=== PATIENT | male | born 1960 | race Caucasian/White ===

== ENCOUNTER 2017-10-17 15:43 | Emergency (ER) | payer OTHER ==
[~2017-10-17 15:43] MED LIST: ASPI325T PO; FURO10S PO; GABA600T PO; GEMF600T PO; LISI-360 PO; PRAV40TA2 PO; RANI150 GT
[2017-10-17 15:53] VITALS: BP 157/96; PULSE 97; RESP 18; O2SAT 99
[2017-10-17] MEDS ORDERED: SODIUM CHLORIDE 0.9% FLUSH 10 ML FLUSH IVF PRN (16:00)
--- NOTE | 2017-10-17 16:11 | PD ---
HPI Chief Complaint: Medical Clearance Time Seen by Provider: 15:54 Travel History International Travel<30 days: No Contact w/Intl Traveler<30days: No Traveled to known affect area: No History of Present Illness HPI Patient is a 56-year-old male presenting to the emergency department via EMS for evaluation of what appears to be a tremulous episode that lasted a few seconds. Patient's called 911 because she thought he was having another stroke. Patient has a history of a CVA with residual right-sided weakness. Patient reports a cough but denies any other complaints at this time. H&P is limited due to patient being aphasic which is also chronic. Patient shakes his head yes or no when answering questions. He denied any abdominal pain, chest pain, headache. Symptom onset was sudden, symptoms resolved within a few seconds. is attempted to get a ride to the hospital. 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 Reported Meds & Prescriptions Reported Meds & Active Scripts Active Zantac 150 Mg Tab (Ranitidine HCl) 150 Mg Tab 150 Mg GT Q12 Gemfibrozil 600 Mg Tab 600 Mg PO BID Pravastatin Sodium 40 Mg Tab 40 Mg PO DAILY Lisinopril 10 mg (Lisinopril) 10 Mg Tab 10 Mg PO BID Reported Furosemide 10 Mg/Ml Gilma 20 Mg PO Gabapentin 600 Mg Tab 600 Mg PO TID PRN Aspirin 325 Mg Tab (Aspirin) 325 Mg Tab 325 Mg PO DAILY Review of Systems ROS Limitations: Speech Impaired Except as stated in HPI: all other systems reviewed are Neg HENT: No: Headaches Cardiovascular: No: Chest Pain or Discomfort Respiratory: Positive: Cough, No: Shortness of Breath Gastrointestinal: No: Nausea, Abdominal Pain Musculoskeletal: No: Myalgias Physical Exam Narrative GENERAL: Well-developed, well-nourished, disheveled male. Presenting in no acute distress. SKIN: Warm and dry. HEAD: Atraumatic. Normocephalic. EYES: Pupils equal and round. No scleral icterus. No injection or drainage. ENT: No nasal bleeding or discharge. Mucous membranes pink and moist. NECK: Trachea midline. No JVD. CARDIOVASCULAR: Regular rate and rhythm. RESPIRATORY: No accessory muscle use. Clear to auscultation. Breath sounds equal bilaterally. GASTROINTESTINAL: Abdomen soft, non-tender, nondistended. Hepatic and splenic margins not palpable. MUSCULOSKELETAL: Extremities without clubbing, cyanosis, or edema. No obvious deformities. NEUROLOGICAL: Awake and alert. No obvious cranial nerve deficits. Motor grossly within normal limits. Five out of 5 muscle strength in the arms and legs. Aphasic PSYCHIATRIC: Appropriate mood and affect; insight and judgment normal. Data Data Last Documented VS Vital Signs Date Time Temp Pulse Resp B/P (MAP) Pulse Ox O2 Delivery O2 Flow Rate FiO2 10/17/17 16:13 98.9 10/17/17 16:12 99 10/17/17 15:53 97 18 Room Air Orders Orders Electrocardiogram (10/17/17 15:54) Prothrombin Time / Inr (Pt) (10/17/17 15:54) Act Partial Throm Time (Ptt) (10/17/17 15:54) Complete Blood Count With Diff (10/17/17 15:54) Comprehensive Metabolic Panel (10/17/17 15:54) Creatine Kinase (Cpk) (10/17/17 15:54) Troponin I (10/17/17 15:54) Urinalysis - C+S If Indicated (10/17/17 15:54) Ct Brain W/O Iv Contrast(Rout) (10/17/17 15:54) Chest, Single Ap (10/17/17 15:54) Ecg Monitoring (10/17/17 15:54) Iv Access Insert/Monitor (10/17/17 15:54) Oximetry (10/17/17 15:54) Sodium Chloride 0.9% Flush (Ns Flush) (10/17/17 16:00) Sodium Chlorid 0.9% 500 Ml Inj (Ns 500 M (10/17/17 18:30) Urine Culture (10/17/17 17:38) Ceftriaxone Inj (Rocephin Inj) (10/17/17 20:00) Labs Laboratory Tests Test 10/17/17 16:07 10/17/17 17:38 White Blood Count 16.0 TH/MM3 Red Blood Count 4.78 MIL/MM3 Hemoglobin 12.1 GM/DL Hematocrit 38.7 % Mean Corpuscular Volume 80.9 FL Mean Corpuscular Hemoglobin 25.3 PG Mean Corpuscular Hemoglobin Concent 31.3 % Red Cell Distribution Width 18.3 % Platelet Count 506 TH/MM3 Mean Platelet Volume 6.6 FL Neutrophils (%) (Auto) 83.4 % Lymphocytes (%) (Auto) 9.5 % Monocytes (%) (Auto) 6.6 % Eosinophils (%) (Auto) 0.2 % Basophils (%) (Auto) 0.3 % Neutrophils # (Auto) 13.3 TH/MM3 Lymphocytes # (Auto) 1.5 TH/MM3 Monocytes # (Auto) 1.1 TH/MM3 Eosinophils # (Auto) 0.0 TH/MM3 Basophils # (Auto) 0.0 TH/MM3 CBC Comment DIFF FINAL Differential Comment Prothrombin Time 9.9 SEC Prothromb Time International Ratio 1.0 RATIO Activated Partial Thromboplast Time 27.7 SEC Blood Urea Nitrogen 5 MG/DL Creatinine 0.68 MG/DL Random Glucose 93 MG/DL Total Protein 6.8 GM/DL Albumin 3.1 GM/DL Calcium Level 8.3 MG/DL Alkaline Phosphatase 100 U/L Aspartate Amino Transf (AST/SGOT) 9 U/L Alanine Aminotransferase (ALT/SGPT) 9 U/L Total Bilirubin 0.2 MG/DL Sodium Level 139 MEQ/L Potassium Level 3.7 MEQ/L Chloride Level 106 MEQ/L Carbon Dioxide Level 25.5 MEQ/L Anion Gap 8 MEQ/L Estimat Glomerular Filtration Rate 122 ML/MIN Total Creatine Kinase 47 U/L Troponin I LESS THAN 0.02 NG/ML Urine Color YELLOW Urine Turbidity HAZY Urine pH 7.0 Urine Specific [place] 1.022 Urine Protein TRACE mg/dL Urine Glucose (UA) NEG mg/dL Urine Ketones NEG mg/dL Urine Occult Blood NEG Urine Nitrite NEG Urine Bilirubin NEG Urine Urobilinogen 2.0 MG/DL Urine Leukocyte Esterase MOD Urine RBC 8 /hpf Urine WBC 12 /hpf Urine Squamous Epithelial Cells 1 /hpf Urine Amorphous Sediment RARE Urine Bacteria FEW /hpf Urine Mucus MANY /lpf Microscopic Urinalysis Comment CATH-CULTURE IND MDM Medical Decision Making Medical Screen Exam Complete: Yes Emergency Medical Condition: Yes Medical Record Reviewed: Yes Interpretation(s) Vital Signs Date Time Temp Pulse Resp B/P (MAP) Pulse Ox O2 Delivery O2 Flow Rate FiO2 10/17/17 15:53 97 18 157/96 (116) 99 Room Air Differential Diagnosis TIA versus metabolic abnormality versus arrhythmia versus other Narrative Course Patient is a 56-year-old male that presented to the emergency room for evaluation of abnormal movements. who was not present initially for H&P, presented and stated that he was shaking his right arm making a growling noise for a few seconds. This concerned her and then she called 911. Labs and imaging ordered and pending. IV access established, patient placed on telemetry monitoring continuous pulse oximetry. CBC with a white count of 16.0 with left shift Chemistry with no acute findings Cardiac enzymes are negative 1 set Urinalysis is consistent with urinary tract infection, reflex culture pending. Rocephin was ordered. Chest x-ray shows moderate compensated cardiomegaly, otherwise negative. CT scan of the brain shows stable infarcts involving the right occipital lobe and left parietal lobe. Stable cerebral atrophy. No acute infarct, acute hemorrhage, mass-effect or extra-axial fluid collections. Plan of care was discussed with Dr. Sun. Patient will be discharged home on antibiotics for the urinary tract infection. Again patient had no new focal deficits on exam. He had residual right upper extremity weakness and aphasic speech from prior CVA. Patient is to follow-up with his primary doctor or return to emergency department for any new worsening symptoms. Patient and verbalized understanding of these instructions. Patient stable for discharge. Diagnosis Primary Impression: UTI (urinary tract infection) Qualified Codes: N39.0 - Urinary tract infection, site not specified; R31.9 - Hematuria, unspecified Referrals: Primary Care Physician 2 days Patient Instructions: General Instructions, Urinary Tract Infection in Men (DC) Additional Instructions: Complete full course of antibiotics as prescribed Increase fluid intake Follow-up with your primary doctor Return to emergency department for any new worsening symptoms Continue home medication as previously prescribed Med/Other Pt SpecificInfo: Prescription(s) given Scripts Cephalexin (Keflex) 500 Mg Cap 500 MG PO Q12H for Infection for 7 Days, #14 CAP 0 Refills Prov: Miladis Araya 10/17/17 Disposition: 01 DISCHARGE HOME Condition: Stable Miladis Araya Oct 17, 2017 16:11
[2017-10-17 16:12] VITALS: O2SAT 99
[2017-10-17 16:13] VITALS: TEMP 98.9
--- NOTE | 2017-10-17 16:34 | RADRPT ---
EXAM DATE/TIME: 10/17/2017 16:04 [facility] COMPARISON: No previous studies available for comparison. INDICATIONS : Chest pain. MEDICAL HISTORY : Hypertension. Gastroesophageal reflux disease. SURGICAL HISTORY : PEG tube placement. ENCOUNTER: Initial ACUITY: 1 day PAIN SCORE: 10 LOCATION: Bilateral chest FINDINGS: A single view of the chest demonstrates the lungs to be symmetrically aerated without evidence of mas s, infiltrate or effusion. Moderate compensated cardiomegaly. Osseous structures are intact. CONCLUSION: Moderate compensated cardiomegaly otherwise negative Glenroy Lemon MD FACR on October 17, 2017 at 16:31 Board Certified Radiologist. This report was verified electronically.
--- NOTE | 2017-10-17 16:52 | RADRPT ---
EXAM DATE/TIME: 10/17/2017 16:16 [facility] COMPARISON: CT BRAIN W/O CONTRAST, December 17, 2015, 17:38. INDICATIONS : Patient had a shaking episode today. RADIATION DOSE: 39.15 CTDIvol (mGy) MEDICAL HISTORY : Cerebrovascular disease. Hypertension. SURGICAL HISTORY : None. ENCOUNTER: Initial ACUITY: 1 day PAIN SCALE: 0/10 LOCATION: cranial TECHNIQUE: Multiple contiguous axial images were obtained of the head. Using automated exposure control and adj ustment of the mA and/or kV according to patient size, radiation dose was kept as low as reasonably a chievable to obtain optimal diagnostic quality images. DICOM format image data is available electro nically for review and comparison. FINDINGS: CEREBRUM: Stable cerebral atrophy is noted. Old infarcts involving the right occipital lobe and left parietal l obe are noted. No evidence of midline shift, mass lesion, hemorrhage or acute infarction. No extra-a xial fluid collections are seen. POSTERIOR FOSSA: The cerebellum and brainstem are intact. The 4th ventricle is midline. The cerebellopontine angle i s unremarkable. EXTRACRANIAL: The visualized portion of the orbits is intact. SKULL: The calvaria is intact. No evidence of skull fracture. CONCLUSION: 1. Stable infarcts involving the right occipital lobe and left parietal lobe. 2. Stable cerebral atrophy. 3. No acute infarct, acute hemorrhage, mass effect or extra-axial fluid collections. Deepak Sands MD on October 17, 2017 at 16:48 Board Certified Radiologist. This report was verified electronically.
[2017-10-17 16:54] LABS: AUTOMATED NEUTROPHIL # 13.3 TH/MM3 (1.8-7.7); BASOPHIL % 0.3 % (0.0-2.0); EOSINOPHIL % 0.2 % (0.0-4.0); HEMATOCRIT 38.7 % (39.0-51.0); HEMOGLOBIN 12.1 GM/DL (13.0-17.0); LYMPH % 9.5 % (9.0-44.0); LYMPHOCYTE # 1.5 TH/MM3 (1.0-4.8); MEAN CELL VOLUME 80.9 FL (80.0-100.0); MEAN CORPUSCULAR HEMOGLOBIN 25.3 PG (27.0-34.0); MEAN CORPUSCULAR HGB CONC 31.3 % (32.0-36.0); MEAN PLATELET VOLUME 6.6 FL (7.0-11.0); MONO % 6.6 % (0.0-8.0); MONOCYTE # 1.1 TH/MM3 (0-0.9); NEUT % 83.4 % (16.0-70.0); PLATELET COUNT 506 TH/MM3 (150-450); RED BLOOD COUNT 4.78 MIL/MM3 (4.50-5.90); RED CELL DISTRIBUTION WIDTH 18.3 % (11.6-17.2)
[2017-10-17 17:00] LABS: PROTHROMBIN TIME - PATIENT 9.9 SEC (9.8-11.6)
[2017-10-17 17:10] LABS: ALKALINE PHOSPHATASE 100 U/L (45-117); ALT (GPT) 9 U/L (12-78); TOTAL BILIRUBIN ADULT 0.2 MG/DL (0.2-1.0); TOTAL PROTEIN 6.8 GM/DL (6.4-8.2); TROPONIN I LESS THAN 0.02 NG/ML (0.02-0.05)
[2017-10-17 17:18] LABS: ALBUMIN 3.1 GM/DL (3.4-5.0); AST (GOT) 9 U/L (15-37); BICARBONATE 25.5 MEQ/L (21.0-32.0); BLOOD UREA NITROGEN 5 MG/DL (7-18); CALCIUM 8.3 MG/DL (8.5-10.1); CHLORIDE 106 MEQ/L (98-107); CREATININE 0.68 MG/DL (0.60-1.30); GLOMERULAR FILTRATION RATE 122 ML/MIN (>89); GLUCOSE,RANDOM 93 MG/DL (74-106); SODIUM (NA) 139 MEQ/L (136-145)
[2017-10-17] MEDS ORDERED: SODIUM CHLORID 0.9% 500 ML INJ 500 ML IV ONE (18:30)
[2017-10-17 19:44] LABS: AMORPHOUS SEDIMENT, URINE RARE; BACTERIA, URINE FEW /hpf; BILIRUBIN, URINE NEG (NEG); BLOOD, URINE NEG (NEG); GLUCOSE,URINE NEG (NEG); KETONE, URINE NEG (NEG); MUCUS URINE MANY /lpf (OCC); NITRITE,URINE NEG (NEG); SQUAMOUS EPITHELIAL CELL URINE 1 /hpf (0-5); URINE COLOR YELLOW (YELLW/STRAW); URINE LEUKOCYTE ESTERASE MOD (NEG)
[2017-10-17] MEDS ORDERED: cefTRIAXone INJ 2,000 MG in SODIUM CHLORIDE 0.9% INJ 100 ML IV ONE (20:00)
[2017-10-17] MEDS ORDERED: CEPH-460 PO (20:10)
--- NOTE | 2017-10-18 18:49 | EKG ---
Date Performed: 10/17/2017 Time Performed: 15:55:50 PTAGE: 56 years EKG: Sinus rhythm POSSIBLE INFERIOR MYOCARDIAL INFARCTION Since the previous tracing, no significant change noted NIURKA CALI ECG PREVIOUS TRACING : 12/17/15 @ 1720 DOCTOR: Davian Finley Interpretating Date/Time 10/18/2017 18:46:03
== END 2017-10-17 20:44 | disposition home or self-care (01) ==
LOC: NEPE 15:43
DX: N39.0 Urinary tract infection, site not specified (principal); I51.7 Cardiomegaly; I69.951 Hemiplegia and hemiparesis following unspecified cerebrovascular disease affecting right dominant side; I69.920 Aphasia following unspecified cerebrovascular disease; E78.00 Pure hypercholesterolemia, unspecified; I10 Essential (primary) hypertension; F17.200 Nicotine dependence, unspecified, uncomplicated; Z79.82 Long term (current) use of aspirin; Z79.899 Other long term (current) drug therapy
CPT/HCPCS: 70450; 71045; 80053; 81001; 82550; 84484; 85025; 85610; 85730; 87086; 93005; 96361; 96374; 99285; J0696; J7040

== ENCOUNTER 2017-12-11 17:26 | Observation (INO) | payer OTHER ==
[~2017-12-11] VITALS: Ht 170.2 cm; Wt 68.2 kg
[2017-12-11 00:10] VITALS: BP 159/74; PULSE 87; RESP 20; TEMP 99.5; O2SAT 96
[~2017-12-11 17:26] MED LIST changes: +CEPH-460 PO
[2017-12-11 17:29] VITALS: BP_SYST 113; BP_SYST 122; BP_DIAS 58; BP_DIAS 69; PULSE 98; RESP 16; TEMP 98.2; O2SAT 99
[2017-12-11] MEDS ORDERED: SODIUM CHLOR 0.9% 1000 ML INJ 1,000 ML IV ONE (17:34)
[2017-12-11 17:37] VITALS: BP 113/58; PULSE 98; RESP 16; TEMP 99; O2SAT 97
[2017-12-11] MEDS ORDERED: SODIUM CHLORIDE 0.9% FLUSH 10 ML FLUSH IVF PRN (17:45)
--- NOTE | 2017-12-11 17:59 | PD ---
HPI Chief Complaint: Syncope/Near-Syncope Time Seen by Provider: 17:34 Travel History International Travel<30 days: No Contact w/Intl Traveler<30days: No Traveled to known affect area: No History of Present Illness HPI Patient is a 57-year-old male with history of hypertension, CVA, alcoholism, hyperlipidemia, presents the emergency room for evaluation of syncopal episode. As per EMS, patient is heavily intoxicated, reports that he was walking around [address] with his girlfriend. Reports that while walking today, patient had a syncopal episode. Reports that his core temperature was 99.6 as he was wearing a long black overcoat while walking outside in 91 degree weather. Patient is alert and oriented, cannot provide full hpi at this time. He does tell me that nothing is hurting him. PFSH Past Medical History Hx Anticoagulant Therapy: Yes (ASPIRIN 81 MG) High Cholesterol: Yes Cerebrovascular Accident: Yes Endocrine: No Hypertension: Yes Immune Disorder: No Neurologic: Yes (Right hemiparesis, encephalopathy) Past Surgical History Abdominal Surgery: Yes (PEG TUBE ) Social History Alcohol Use: No Tobacco Use: Yes (2PPD) Substance Use: No Allergies-Medications (Allergen,Severity, Reaction): Coded Allergies: *MDRO Multi-Drug Resistant Organism (Verified Adverse Reaction, Unknown, ) MRSA Reported Meds & Prescriptions Reported Meds & Active Scripts Active Keflex (Cephalexin) 500 Mg Cap 500 Mg PO Q12H 7 Days Zantac 150 Mg Tab (Ranitidine HCl) 150 Mg Tab 150 Mg GT Q12 Gemfibrozil 600 Mg Tab 600 Mg PO BID Pravastatin Sodium 40 Mg Tab 40 Mg PO DAILY Lisinopril 10 mg (Lisinopril) 10 Mg Tab 10 Mg PO BID Reported Furosemide 10 Mg/Ml Gilma 20 Mg PO Gabapentin 600 Mg Tab 600 Mg PO TID PRN Aspirin 325 Mg Tab (Aspirin) 325 Mg Tab 325 Mg PO DAILY Review of Systems ROS Limitations: Altered Mental Status General / Constitutional: No: Fever Eyes: No: Visual changes HENT: No: Headaches Cardiovascular: No: Chest Pain or Discomfort Respiratory: No: Shortness of Breath Gastrointestinal: No: Abdominal Pain Genitourinary: No: Dysuria Musculoskeletal: No: Pain Skin: No Rash Neurologic: No: Weakness Psychiatric: No: Depression Endocrine: No: Polydipsia Hematologic/Lymphatic: No: Easy Bruising Physical Exam Narrative GENERAL: Mild distress SKIN: Focused skin assessment warm/dry. HEAD: Abrasion to right confucianist. Normocephalic. EYES: Pupils equal and round. No scleral icterus. No injection or drainage. ENT: No nasal bleeding or discharge. Mucous membranes pink and moist. NECK: Trachea midline. No JVD. Patient in c-spine precautions CARDIOVASCULAR: Regular rate and rhythm. No murmur appreciated. RESPIRATORY: No accessory muscle use. Clear to auscultation. Breath sounds equal bilaterally. GASTROINTESTINAL: Abdomen soft, non-tender, nondistended. Hepatic and splenic margins not palpable. MUSCULOSKELETAL: No obvious deformities. No clubbing. No cyanosis. No edema. NEUROLOGICAL: Awake and alert. No obvious cranial nerve deficits. Motor grossly within normal limits. . PSYCHIATRIC: Flat mood and affect; insight and judgment normal. Data Data Last Documented VS Vital Signs Date Time Temp Pulse Resp B/P (MAP) Pulse Ox O2 Delivery O2 Flow Rate FiO2 12/11/17 17:37 99.0 98 16 113/58 (76) 97 Room Air Orders Orders Electrocardiogram (12/11/17 17:34) Complete Blood Count With Diff (12/11/17 17:34) Comprehensive Metabolic Panel (12/11/17 17:34) Magnesium (Mg) (12/11/17 17:34) Ckmb (Isoenzyme) Profile (12/11/17 17:34) Troponin I (12/11/17 17:34) Act Partial Throm Time (Ptt) (12/11/17 17:34) Prothrombin Time / Inr (Pt) (12/11/17 17:34) Urinalysis - C+S If Indicated (12/11/17 17:34) Chest, Single Ap (12/11/17 17:34) Ct Brain W/O Iv Contrast(Rout) (12/11/17 17:34) Ct Cerv Spine W/O Contrast (12/11/17 17:34) Blood Glucose (12/11/17 17:34) Ecg Monitoring (12/11/17 17:34) Iv Access Insert/Monitor (12/11/17 17:34) Oximetry (12/11/17 17:34) Sodium Chloride 0.9% Flush (Ns Flush) (12/11/17 17:45) Sodium Chlor 0.9% 1000 Ml Inj (Ns 1000 M (12/11/17 17:34) Drug Screen, Random Urine (12/11/17 17:48) Alcohol (Ethanol) (12/11/17 17:48) Labs Laboratory Tests Test 12/11/17 17:40 White Blood Count 11.3 TH/MM3 Red Blood Count 4.90 MIL/MM3 Hemoglobin 11.7 GM/DL Hematocrit 37.2 % Mean Corpuscular Volume 75.9 FL Mean Corpuscular Hemoglobin 23.9 PG Mean Corpuscular Hemoglobin Concent 31.5 % Red Cell Distribution Width 19.3 % Platelet Count 468 TH/MM3 Mean Platelet Volume 7.3 FL Neutrophils (%) (Auto) 65.2 % Lymphocytes (%) (Auto) 22.9 % Monocytes (%) (Auto) 10.8 % Eosinophils (%) (Auto) 0.4 % Basophils (%) (Auto) 0.7 % Neutrophils # (Auto) 7.4 TH/MM3 Lymphocytes # (Auto) 2.6 TH/MM3 Monocytes # (Auto) 1.2 TH/MM3 Eosinophils # (Auto) 0.0 TH/MM3 Basophils # (Auto) 0.1 TH/MM3 CBC Comment DIFF FINAL Differential Comment MDM Medical Decision Making Medical Screen Exam Complete: Yes Emergency Medical Condition: Yes Medical Record Reviewed: Yes Interpretation(s) EKG at 1746: NSR at 93bpm, qt/qtc: 362/413, no acute st or t wave changes Vital Signs Date Time Temp Pulse Resp B/P (MAP) Pulse Ox O2 Delivery O2 Flow Rate FiO2 12/11/17 17:37 99.0 98 16 113/58 (76) 97 Room Air 12/11/17 17:33 96 Room Air 12/11/17 17:29 98.2 98 16 113/58 (76) 99 Differential Diagnosis Alcohol intoxication, arrhythmia, ich, cva Narrative Course During the course of the patients emergency department visit, the patients history, examination, and differential diagnosis were reviewed with the patient. The patient was placed on a potline monitor with oximetry and frequent blood pressure monitoring. The patient had an IV access obtained and blood work sent for analysis. BS 93 The patient was initially provided IVF The patients laboratory studies were reviewed and remarkable for Laboratory Tests Test 12/11/17 17:40 White Blood Count 11.3 TH/MM3 (4.0-11.0) Red Blood Count 4.90 MIL/MM3 (4.50-5.90) Hemoglobin 11.7 GM/DL (13.0-17.0) Hematocrit 37.2 % (39.0-51.0) Mean Corpuscular Volume 75.9 FL (80.0-100.0) Mean Corpuscular Hemoglobin 23.9 PG (27.0-34.0) Mean Corpuscular Hemoglobin Concent 31.5 % (32.0-36.0) Red Cell Distribution Width 19.3 % (11.6-17.2) Platelet Count 468 TH/MM3 (150-450) Mean Platelet Volume 7.3 FL (7.0-11.0) Neutrophils (%) (Auto) 65.2 % (16.0-70.0) Lymphocytes (%) (Auto) 22.9 % (9.0-44.0) Monocytes (%) (Auto) 10.8 % (0.0-8.0) Eosinophils (%) (Auto) 0.4 % (0.0-4.0) Basophils (%) (Auto) 0.7 % (0.0-2.0) Neutrophils # (Auto) 7.4 TH/MM3 (1.8-7.7) Lymphocytes # (Auto) 2.6 TH/MM3 (1.0-4.8) Monocytes # (Auto) 1.2 TH/MM3 (0-0.9) Eosinophils # (Auto) 0.0 TH/MM3 (0-0.4) Basophils # (Auto) 0.1 TH/MM3 (0-0.2) CBC Comment DIFF FINAL Differential Comment Care of patient signed out to care of Dr. Castillo at change of shift Jessica Prado DO Dec 11, 2017 17:59
[2017-12-11 18:44] LABS: AUTOMATED NEUTROPHIL # 7.4 TH/MM3 (1.8-7.7); BASOPHIL # 0.1 TH/MM3 (0-0.2); BASOPHIL % 0.7 % (0.0-2.0); EOSINOPHIL % 0.4 % (0.0-4.0); HEMATOCRIT 37.2 % (39.0-51.0); HEMOGLOBIN 11.7 GM/DL (13.0-17.0); LYMPH % 22.9 % (9.0-44.0); LYMPHOCYTE # 2.6 TH/MM3 (1.0-4.8); MEAN CELL VOLUME 75.9 FL (80.0-100.0); MEAN CORPUSCULAR HEMOGLOBIN 23.9 PG (27.0-34.0); MEAN CORPUSCULAR HGB CONC 31.5 % (32.0-36.0); MEAN PLATELET VOLUME 7.3 FL (7.0-11.0); MONO % 10.8 % (0.0-8.0); MONOCYTE # 1.2 TH/MM3 (0-0.9); NEUT % 65.2 % (16.0-70.0); PLATELET COUNT 468 TH/MM3 (150-450); RED CELL DISTRIBUTION WIDTH 19.3 % (11.6-17.2); WHITE BLOOD COUNT 11.3 TH/MM3 (4.0-11.0)
[2017-12-11 18:53] LABS: ALBUMIN 3.1 GM/DL (3.4-5.0); AST (GOT) 6 U/L (15-37); BICARBONATE 18.2 MEQ/L (21.0-32.0); BLOOD UREA NITROGEN 7 MG/DL (7-18); CALCIUM 8.8 MG/DL (8.5-10.1); CHLORIDE 104 MEQ/L (98-107); CREATININE 0.68 MG/DL (0.60-1.30); GLOMERULAR FILTRATION RATE 121 ML/MIN (>89); GLUCOSE,RANDOM 94 MG/DL (74-106); MAGNESIUM 2.2 MG/DL (1.5-2.5); SODIUM (NA) 139 MEQ/L (136-145)
[2017-12-11 18:58] LABS: ALKALINE PHOSPHATASE 109 U/L (45-117); ALT (GPT) 12 U/L (12-78); TOTAL BILIRUBIN ADULT 0.3 MG/DL (0.2-1.0); TOTAL PROTEIN 6.8 GM/DL (6.4-8.2); TROPONIN I LESS THAN 0.02 NG/ML (0.02-0.05)
[2017-12-11 19:01] LABS: PROTHROMBIN TIME - PATIENT 10.1 SEC (9.8-11.6)
--- NOTE | 2017-12-11 19:14 | PD ---
Data Data Last Documented VS Vital Signs Date Time Temp Pulse Resp B/P (MAP) Pulse Ox O2 Delivery O2 Flow Rate FiO2 12/11/17 19:34 88 12 100 12/11/17 19:33 143/75 (97) Room Air 12/11/17 17:37 99.0 Orders Orders Electrocardiogram (12/11/17 17:34) Complete Blood Count With Diff (12/11/17 17:34) Comprehensive Metabolic Panel (12/11/17 17:34) Magnesium (Mg) (12/11/17 17:34) Ckmb (Isoenzyme) Profile (12/11/17 17:34) Troponin I (12/11/17 17:34) Act Partial Throm Time (Ptt) (12/11/17 17:34) Prothrombin Time / Inr (Pt) (12/11/17 17:34) Urinalysis - C+S If Indicated (12/11/17 17:34) Chest, Single Ap (12/11/17 17:34) Ct Brain W/O Iv Contrast(Rout) (12/11/17 17:34) Ct Cerv Spine W/O Contrast (12/11/17 17:34) Blood Glucose (12/11/17 17:34) Ecg Monitoring (12/11/17 17:34) Iv Access Insert/Monitor (12/11/17 17:34) Oximetry (12/11/17 17:34) Sodium Chloride 0.9% Flush (Ns Flush) (12/11/17 17:45) Sodium Chlor 0.9% 1000 Ml Inj (Ns 1000 M (12/11/17 17:34) Drug Screen, Random Urine (12/11/17 17:48) Potassium Chlor 20 Meq Premix (Kcl 20 Me (12/11/17 19:00) Alcohol (Ethanol) (12/11/17 17:40) Admit Order (Ed Use Only) (12/11/17 20:35) Labs Laboratory Tests Test 12/11/17 17:40 White Blood Count 11.3 TH/MM3 Red Blood Count 4.90 MIL/MM3 Hemoglobin 11.7 GM/DL Hematocrit 37.2 % Mean Corpuscular Volume 75.9 FL Mean Corpuscular Hemoglobin 23.9 PG Mean Corpuscular Hemoglobin Concent 31.5 % Red Cell Distribution Width 19.3 % Platelet Count 468 TH/MM3 Mean Platelet Volume 7.3 FL Neutrophils (%) (Auto) 65.2 % Lymphocytes (%) (Auto) 22.9 % Monocytes (%) (Auto) 10.8 % Eosinophils (%) (Auto) 0.4 % Basophils (%) (Auto) 0.7 % Neutrophils # (Auto) 7.4 TH/MM3 Lymphocytes # (Auto) 2.6 TH/MM3 Monocytes # (Auto) 1.2 TH/MM3 Eosinophils # (Auto) 0.0 TH/MM3 Basophils # (Auto) 0.1 TH/MM3 CBC Comment DIFF FINAL Differential Comment Prothrombin Time 10.1 SEC Prothromb Time International Ratio 1.0 RATIO Activated Partial Thromboplast Time 26.6 SEC Blood Urea Nitrogen 7 MG/DL Creatinine 0.68 MG/DL Random Glucose 94 MG/DL Total Protein 6.8 GM/DL Albumin 3.1 GM/DL Calcium Level 8.8 MG/DL Magnesium Level 2.2 MG/DL Alkaline Phosphatase 109 U/L Aspartate Amino Transf (AST/SGOT) 6 U/L Alanine Aminotransferase (ALT/SGPT) 12 U/L Total Bilirubin 0.3 MG/DL Sodium Level 139 MEQ/L Potassium Level 2.7 MEQ/L Chloride Level 104 MEQ/L Carbon Dioxide Level 18.2 MEQ/L Anion Gap 17 MEQ/L Estimat Glomerular Filtration Rate 121 ML/MIN Total Creatine Kinase 46 U/L Troponin I LESS THAN 0.02 NG/ML Ethyl Alcohol Level 63 MG/DL [facility] Medical Record Reviewed: Yes Supervised Visit with KACIE: No Narrative Course During the course of the patient's emergency department visit, the patient's history, examination, and differential diagnosis were reviewed with the patient. The patient was placed on a gambling monitor with oximetry and frequent blood pressure monitoring. The patient had IV access obtained and blood work sent for analysis. The patient's case was checked out to me by Dr. Prado. Please see her complete history and physical. The patient's case was checked out to me at the conclusion of her shift. The patient presented with an episode of syncope. The patient has a past medical history significant for stroke. The patient was initially provided normal saline IV fluids, potassium supplementation for hypokalemia. The patient's laboratory studies were reviewed and remarkable for a white count of 11.3, hemoglobin 11.7, platelets 468 with 10.8- monocytes, CMP is remarkable for potassium of 2.7, CO2 18.2, anion gap 17, AST 6, cardiac enzymes within normal limits. PT 10.1, PTT 26.6, alcohol level 63. Radiology studies were reviewed and remarkable for a CT scan of the head and neck that showed no acute abnormality. Chest x-ray that showed no evidence of acute cardiopulmonary disease. The patient's results were discussed with the patient, including the plan of care. I explained that further testing and/ or monitoring is indicated based on the patient's history, examination, and/ or laboratory findings. Therefore, I recommended admission for additional evaluation. The patient expressed understanding and was agreeable with this plan. The patient was admitted to the hospital in stable condition and sent to a bed under the care of the [facility] service. Physician Communication Physician Communication The patient's case including history, pertinent physical examination findings, and laboratory studies were discussed with Dr. Tsai. It was agreed that the patient would be admitted to the [facility] service. Diagnosis Primary Impression: Syncope Qualified Codes: R55 - Syncope and collapse Additional Impressions: Dehydration Hypokalemia Admitting Information Admitting Physician Requests: Observation Sita Castillo MD Dec 11, 2017 19:14
--- NOTE | 2017-12-11 19:23 | RADRPT ---
EXAM DATE: 12/11/2017 6:01 PM EDT AGE/SEX: 57 years / Male INDICATIONS: Syncope. CLINICAL DATA: This is the patient's initial encounter. Patient reports that signs and symptoms have been present for 1 day and indicates a pain score of Nonresponsive. MEDICAL/SURGICAL HISTORY: . Hypertension. Gastroesophageal reflux disease. . PEG tube placemen t. COMPARISON: [facility] – [place], CHEST SINGLE AP, 10/17/2017. . FINDINGS: A single AP view of the chest demonstrates the lungs to be symmetrically aerated without evidence of mass, infiltrate or effusion. The cardiomediastinal contours are unremarkable. Osseous structures a re intact. CONCLUSION: Negative examination. Electronically signed by: Asa Lazcano MD 12/11/2017 7:21 PM EDT
--- NOTE | 2017-12-11 19:24 | RADRPT ---
EXAM DATE: 12/11/2017 6:30 PM EDT AGE/SEX: 57 years / Male INDICATIONS: Trauma; syncopal episode. CLINICAL DATA: This is the patient's initial encounter. Patient reports that signs and symptoms have been present for 1 day and indicates a pain score of 3/10. MEDICAL/SURGICAL HISTORY: Stroke. None. RADIATION DOSE: 56.35 CTDI (mGy) COMPARISON: [facility] [place], CT BRAIN W/O CONTRAST, 10/17/2017. . TECHNIQUE: CT of the head without contrast. Using automated exposure control and adjustment of the mA and/or kV according to patient size, radiation dose was kept as low as reasonably achievable to ob tain optimal diagnostic quality images. FINDINGS: There is encephalomalacia in the left MCA territory as well as the right occipital lobe from remote i nfarcts, unchanged. There is mild diffuse atrophy. No signs of acute infarct, hemorrhage or mass. CONCLUSION: 1. No acute findings. Electronically signed by: Asa Lazcano MD 12/11/2017 7:23 PM EDT
--- NOTE | 2017-12-11 19:26 | RADRPT ---
EXAM DATE: 12/11/2017 7:18 PM EDT AGE/SEX: 57 years / Male INDICATIONS: Trauma; syncopal episode. CLINICAL DATA: This is the patient's initial encounter. Patient reports that signs and symptoms have been present for 1 day and indicates a pain score of 4/10. MEDICAL/SURGICAL HISTORY: Hypertension. None. RADIATION DOSE: 21.05 CTDI (mGy) COMPARISON: No prior [place] exams available for comparison. TECHNIQUE: Contiguous axial images were obtained using helical multirow detector technique. The vol umetric data was post-processed with multiplanar reconstruction in oblique axial, sagittal, and coron al planes. Using automated exposure control and adjustment of the mA and/or kV according to patient s ize, radiation dose was kept as low as reasonably achievable to obtain optimal diagnostic quality juan manuel ges. FINDINGS: Alignment is normal. No prevertebral soft tissue swelling is identified. There is anterior osteophyte formation greatest at C5 and C6. Mild disc space narrowing at C7-T1. No compression deformities are seen. Odontoid process is intact. At C3-4 mild diffuse disc bulge greatest centrally with mild canal narrowing. At C4-5 central disc protrusion, tiny with mild effacement of ventral thecal sac and mild canal narrowing. CONCLUSION: 1. Mild degenerative changes are noted without evidence for acute fracture or listhesis. Electronically signed by: Asa Lazcano MD 12/11/2017 7:25 PM EDT
[2017-12-11 19:33] VITALS: BP 143/75; PULSE 85; RESP 15; O2SAT 100
[2017-12-11] MEDS: POTASSIUM CHLOR 20 MEQ PREMIX 100 ML IV SCH ×2 (19:52→22:07)
--- NOTE | 2017-12-11 23:02 | HHI.HP ---
[facility] Service [facility] Primary Care Physician Unknown Admission Diagnosis syncope Diagnoses: Chief Complaint: syncope Travel History International Travel<30 Days: No Contact w/Intl Traveler <30 Da: No Traveled to Known Affected Are: No History of Present Illness 57 y/o male with a history of HTN, and HLD was brought to the ED after having a syncopal episode while intoxicated. Patient is aphasic and only able to answer yes and no questions, orientation is questionable. He denies any chest pain or sob. He states yes to drinking a lot today and falling and hitting his head. States no to taking any medications at home. He is able use his fingers for communication such as putting up 2 fingers for 2 PPD. He is weaker on the right side. No family is at the bedside. 0200: RN was able to get a hold of patient's who states this is patient's baseline and he only is able to answer yes or no questions for the last 3 years. MRI and neurology consult was cancelled since this is not a new neuro change. Review of Systems Except as stated in HPI: all other systems reviewed are Neg Past Family Social History Past Medical History Per EMR HTN HLD Past Surgical History Per EMR Prior peg placement Reported Medications Reported Meds & Active Scripts Active Keflex (Cephalexin) 500 Mg Cap 500 Mg PO Q12H 7 Days Zantac 150 Mg Tab (Ranitidine HCl) 150 Mg Tab 150 Mg GT Q12 Gemfibrozil 600 Mg Tab 600 Mg PO BID Pravastatin Sodium 40 Mg Tab 40 Mg PO DAILY Lisinopril 10 mg (Lisinopril) 10 Mg Tab 10 Mg PO BID Reported Furosemide 10 Mg/Ml Gilma 20 Mg PO Gabapentin 600 Mg Tab 600 Mg PO TID PRN Aspirin 325 Mg Tab (Aspirin) 325 Mg Tab 325 Mg PO DAILY Allergies: Coded Allergies: *MDRO Multi-Drug Resistant Organism (Verified Adverse Reaction, Unknown, ) MRSA Active Ordered Medications Current Medications Medications (Trade) Dose Ordered Sig/Doretha Route Start Time Stop Time Status Last Admin Sodium Chloride 1,000 ml @ 100 mls/hr Q10H IV 6/5/18 23:33 12/12/17 00:03 (NS Flush) 2 ml UNSCH PRN IV FLUSH 12/11/17 23:45 (NS Flush) 2 ml BID IV FLUSH 12/12/17 09:00 Family History Patient denies any family history Social History Tobacco use: 2 PPD Alcohol use: Daily Physical Exam Vital Signs Vital Signs Date Time Temp Pulse Resp B/P (MAP) Pulse Ox O2 Delivery O2 Flow Rate FiO2 12/11/17 19:34 88 12 100 12/11/17 19:33 85 15 143/75 (97) 100 Room Air 12/11/17 17:37 99.0 98 16 113/58 (76) 97 Room Air 12/11/17 17:33 96 Room Air 12/11/17 17:29 98.2 98 16 113/58 (76) 99 Physical Exam GENERAL: This is a well-nourished, well-developed patient, in no apparent distress. SKIN: No rashes, ecchymoses or lesions. Cool and dry. HEAD: Atraumatic. Normocephalic. EYES: Pupils equal round and reactive. ENT: Nose without bleeding, purulent drainage or septal hematoma. Airway patent. CARDIOVASCULAR: Regular rate and rhythm without murmurs, gallops, or rubs. RESPIRATORY: Clear to auscultation. Breath sounds equal bilaterally. No wheezes , rales, or rhonchi. GASTROINTESTINAL: Abdomen soft, non-tender, nondistended. No hepato-splenomegaly , or palpable masses. No guarding. MUSCULOSKELETAL: Extremities without clubbing, cyanosis, or edema. No joint tenderness, effusion, or edema noted. NEUROLOGICAL: Awake and only answer yes or no. Motor and sensory grossly within normal limits. Right sided weakness. Aphasic. Laboratory Laboratory Tests Test 12/11/17 17:40 White Blood Count 11.3 Red Blood Count 4.90 Hemoglobin 11.7 Hematocrit 37.2 Mean Corpuscular Volume 75.9 Mean Corpuscular Hemoglobin 23.9 Mean Corpuscular Hemoglobin Concent 31.5 Red Cell Distribution Width 19.3 Platelet Count 468 Mean Platelet Volume 7.3 Neutrophils (%) (Auto) 65.2 Lymphocytes (%) (Auto) 22.9 Monocytes (%) (Auto) 10.8 Eosinophils (%) (Auto) 0.4 Basophils (%) (Auto) 0.7 Neutrophils # (Auto) 7.4 Lymphocytes # (Auto) 2.6 Monocytes # (Auto) 1.2 Eosinophils # (Auto) 0.0 Basophils # (Auto) 0.1 CBC Comment DIFF FINAL Differential Comment Prothrombin Time 10.1 Prothromb Time International Ratio 1.0 Activated Partial Thromboplast Time 26.6 Blood Urea Nitrogen 7 Creatinine 0.68 Random Glucose 94 Total Protein 6.8 Albumin 3.1 Calcium Level 8.8 Magnesium Level 2.2 Alkaline Phosphatase 109 Aspartate Amino Transf (AST/SGOT) 6 Alanine Aminotransferase (ALT/SGPT) 12 Total Bilirubin 0.3 Sodium Level 139 Potassium Level 2.7 Chloride Level 104 Carbon Dioxide Level 18.2 Anion Gap 17 Estimat Glomerular Filtration Rate 121 Total Creatine Kinase 46 Troponin I LESS THAN 0.02 Ethyl Alcohol Level 63 Result Diagram: 12/11/17173912/11/171739 Imaging Last Impressions Head CT 12/11/171733 Signed Impressions: CONCLUSION: 1. No acute findings. Chest X-Ray 12/11/171733 Signed Impressions: CONCLUSION: Negative examination. Cervical Spine CT 12/11/171733 Signed Impressions: CONCLUSION: 1. Mild degenerative changes are noted without evidence for acute fracture or listhesis. Caprini VTE Risk Assessment Caprini VTE Risk Assessment: Mod/High Risk (score >= 2) Caprini Risk Assessment Model Point Value = 1 Point Value = 2 Point Value = 3 Point Value = 5 Age 41-60 Minor surgery BMI > 25 kg/m2 Swollen legs Varicose veins or History of unexplained or recurrent spontaneous Oral contraceptives or hormone replacement Sepsis (< 1 month) Serious lung disease, including pneumonia (< 1 month) Abnormal pulmonary function Acute myocardial infarction Congestive heart failure (< 1 month) History of inflammatory bowel disease Medical patient at bed rest Age 61-74 Arthroscopic surgery Major open surgery (> 45 min) Laparoscopic surgery (> 45 min) Malignancy Confined to bed (> 72 hours) Immobilizing plaster cast Central venous access Age >= 75 History of VTE Family history of VTE Factor V Leiden Prothrombin [id number] Lupus anticoagulant Anticardiolipin antibodies Elevated serum homocysteine Heparin-induced thrombocytopenia Other congenital or acquired thrombophilia Stroke (< 1 month) Elective arthroplasty Hip, pelvis, or leg fracture Acute spinal cord injury (< 1 month) Prophylaxis Regimen Total Risk Factor Score Risk Level Prophylaxis Regimen 0-1 Low Early ambulation 2 Moderate Order ONE of the following: *Sequential Compression Device (SCD) *Heparin 5000 units SQ BID 3-4 Higher Order ONE of the following medications: *Heparin 5000 units SQ TID *Enoxaparin/Lovenox 40 mg SQ daily (WT < 150 kg, CrCl > 30 mL/min) *Enoxaparin/Lovenox 30 mg SQ daily (WT < 150 kg, CrCl > 10-29 mL/min) *Enoxaparin/Lovenox 30 mg SQ BID (WT < 150 kg, CrCl > 30 mL/min) AND/OR *Sequential Compression Device (SCD) 5 or more Highest Order ONE of the following medications: *Heparin 5000 units SQ TID (Preferred with Epidurals) *Enoxaparin/Lovenox 40 mg SQ daily (WT < 150 kg, CrCl > 30 mL/min) *Enoxaparin/Lovenox 30 mg SQ daily (WT < 150 kg, CrCl > 10-29 mL/min) *Enoxaparin/Lovenox 30 mg SQ BID (WT < 150 kg, CrCl > 30 mL/min) AND *Sequential Compression Device (SCD) Assessment and Plan Assessment and Plan 57 y/o male with a history of HTN, and HLD was brought to the ED after having a syncopal episode while intoxicated. Syncope, in patient with prior CVA Head CT reviewed and is unremarkable -2d echo, carotids, EEG ordered -Neuro checks -PT/OT/ST -Pravastatin and ASA given -Lipid profile ordered hypokalemia, potassium 2.7 -Supplementation ordered, trend potassium, replace as need Alcohol abuse -WA protocol -Seizure precautions DVT prophylaxis: SCDs Discussed Condition With Patient and RN Elif Eubanks Dec 11, 2017 23:02
[2017-12-11] MEDS ORDERED: SODIUM CHLORIDE 0.9% FLUSH 10 ML FLUSH IV FLUSH PRN (23:45)
[2017-12-12] VITALS (9 sets, daily range): BP systolic 133–171; BP diastolic 60–90; PULSE 64–86; RESP 18–20; TEMP 98.4–99.1; O2SAT 98–99
[2017-12-12] MEDS: SODIUM CHLOR 0.9% 1000 ML INJ 1,000 ML IV SCH ×3 (00:03→20:51)
[2017-12-12] MEDS: ASPIRIN 325 MG TAB PO SCH ×2 (01:00→09:00)
[2017-12-12] MEDS: PRAVASTATIN SOD 40 MG TAB PO SCH ×2 (01:00→20:51)
[2017-12-12] MEDS ORDERED: POTASSIUM CHLORIDE 20 MEQ CONTROLLED RELEASE TAB PO ONE (01:00)
[2017-12-12 03:52] LABS: CHOLESTEROL/ HDL RATIO 2.48 RATIO; HDL CHOLESTEROL 31.8 MG/DL (40.0-60.0)
[2017-12-12 03:54] LABS: ALBUMIN 2.5 GM/DL (3.4-5.0); ALKALINE PHOSPHATASE 90 U/L (45-117); ALT (GPT) 11 U/L (12-78); AST (GOT) 16 U/L (15-37); BICARBONATE 24.6 MEQ/L (21.0-32.0); BLOOD UREA NITROGEN 4 MG/DL (7-18); CALCIUM 7.8 MG/DL (8.5-10.1); CHLORIDE 108 MEQ/L (98-107); CREATININE 0.57 MG/DL (0.60-1.30); GLOMERULAR FILTRATION RATE 148 ML/MIN (>89); GLUCOSE,RANDOM 85 MG/DL (74-106); SODIUM (NA) 140 MEQ/L (136-145); TOTAL BILIRUBIN ADULT 0.6 MG/DL (0.2-1.0); TOTAL PROTEIN 5.8 GM/DL (6.4-8.2)
[2017-12-12 06:28] LABS: AUTOMATED NEUTROPHIL # 6.9 TH/MM3 (1.8-7.7); BASOPHIL % 0.4 % (0.0-2.0); EOSINOPHIL # 0.1 TH/MM3 (0-0.4); EOSINOPHIL % 0.9 % (0.0-4.0); HEMATOCRIT 31.6 % (39.0-51.0); HEMOGLOBIN 9.9 GM/DL (13.0-17.0); LYMPH % 12.6 % (9.0-44.0); LYMPHOCYTE # 1.2 TH/MM3 (1.0-4.8); MEAN CELL VOLUME 75.4 FL (80.0-100.0); MEAN CORPUSCULAR HEMOGLOBIN 23.7 PG (27.0-34.0); MEAN CORPUSCULAR HGB CONC 31.5 % (32.0-36.0); MEAN PLATELET VOLUME 6.8 FL (7.0-11.0); MONO % 13.2 % (0.0-8.0); MONOCYTE # 1.2 TH/MM3 (0-0.9); NEUT % 72.9 % (16.0-70.0); PLATELET COUNT 402 TH/MM3 (150-450); RED BLOOD COUNT 4.19 MIL/MM3 (4.50-5.90); RED CELL DISTRIBUTION WIDTH 19.2 % (11.6-17.2); WHITE BLOOD COUNT 9.4 TH/MM3 (4.0-11.0)
--- NOTE | 2017-12-12 08:55 | RADRPT ---
EXAM DATE: 12/12/2017 8:42 AM EDT AGE/SEX: 57 years / Male INDICATIONS: Syncope. CLINICAL DATA: This is the patient's initial encounter. Patient reports that signs and symptoms have been present for 1 day and indicates a pain score of 0/10. MEDICAL/SURGICAL HISTORY: Hypercholesterolemia. Hypertension. Gastroesophageal reflux disease . Right hemiparesis. Encephalopathy. CVA. Anticoagulant therapy, Aspirin 81mg. MRSA. . PEG tube. COMPARISON: No prior [place] exams available for comparison. No external comparison. VELOCITY PARAMETERS: ICA/CCA Ratio: Right 1.1 , Left 0.9 ICA: Right 122 cm/sec, Left 84 cm/sec CCA: Right 107 cm/sec, Left 95 cm/sec ECA: Right 103 cm/sec, Left 71 cm/sec Vertebral: Right 66 cm/sec antegrade, Left 57 cm/sec antegrade FINDINGS: Right Carotid: No significant stenosis is visualized. The waveforms are within normal limits. Left Carotid: No significant stenosis is visualized. The waveforms are within normal limits. Other: None. CONCLUSION: No evidence of flow-limiting carotid stenosis. Electronically signed by: Shawn Newman MD 12/12/2017 8:53 AM EDT
[2017-12-12] MEDS: SODIUM CHLORIDE 0.9% FLUSH 10 ML FLUSH IV FLUSH SCH ×2 (09:11→20:51)
--- NOTE | 2017-12-12 12:44 | HHI.PR ---
Subjective Remarks Follow up syncopal episode. Patient has no complaints at this time. He wants to go home. His is at bedside and states that he is at his baseline. He denies chest pain, dyspnea, headache, lightheadedness, dizziness. Objective Vitals Vital Signs Date Time Temp Pulse Resp B/P (MAP) Pulse Ox O2 Delivery O2 Flow Rate FiO2 12/12/17 11:15 79 12/12/17 08:35 64 12/12/17 07:47 98.4 80 18 141/86 (104) 98 12/12/17 04:00 99.1 82 20 145/60 (88) 99 12/11/17 19:34 88 12 100 12/11/17 19:33 85 15 143/75 (97) 100 Room Air 12/11/17 17:37 99.0 98 16 113/58 (76) 97 Room Air 12/11/17 17:33 96 Room Air 12/11/17 17:29 98.2 98 16 113/58 (76) 99 I/O 12/11/17 12/11/17 12/11/17 12/12/17 12/12/17 12/12/17 07:00 15:00 23:00 07:00 15:00 23:00 Intake Total 1000 ml Balance 1000 ml Intake IV Total 1000 ml Result Diagram: 12/12/17 0610 12/12/17 0300 Imaging Last Impressions Carotid Artery Ultrasound 12/12/17 0000 Signed Impressions: CONCLUSION: No evidence of flow-limiting carotid stenosis. Head CT 12/11/171733 Signed Impressions: CONCLUSION: 1. No acute findings. Chest X-Ray 12/11/171733 Signed Impressions: CONCLUSION: Negative examination. Cervical Spine CT 12/11/171733 Signed Impressions: CONCLUSION: 1. Mild degenerative changes are noted without evidence for acute fracture or listhesis. Objective Remarks General: No acute distress. Heart: Regular rate and rhythm. No murmur. Lungs: Clear to auscultation bilaterally. No wheezes, rales, or rhonchi. Breathing is nonlabored. Abdomen: Soft, nontender, nondistended. Extremities: No lower extremity edema. Psych: Alert. Only answers questions with yes or no. Neuro: Right-sided weakness. Procedures None Urinary Catheter: No Vascular Central Line Catheter: No A/P Assessment and Plan 1. Syncopal episode: Patient has history of prior CVA. Head CT is negative. Carotid artery ultrasound is negative. EEG and 2D echocardiogram are pending. Continue neuro checks. PT/OT/ST. Continue statin, aspirin. 2. Hypokalemia: Improved with supplementation. 3. Alcohol abuse: [facility] protocol. Seizure precautions. 4. DVT prophylaxis: SCDs. Discharge Planning Possible discharge home pending EEG and echocardiogram reports. Shubham Pacheco MD Dec 12, 2017 12:44
--- NOTE | 2017-12-12 14:32 | MG ---
cc: Dawson Blair MD, PhD TEST NUMBER: [id number]. TECHNIQUE: A 17-channel EEG. DESCRIPTION: The background rhythm reveals mild slowing in the theta range, fairly low amplitude activity at 5-10 Hz. There is some muscle artifact present. Hyperventilation was not done. Photic results in a poor driving response. INTERPRETATION: Mildly abnormal study consistent with a mild to moderate encephalopathy. Dawson Blair MD, PhD MIKE/SB , 02:22 PM , 02:31 PM
--- NOTE | 2017-12-12 17:43 | ECHRPT ---
Indication: Syncope and collapse CONCLUSIONS Normal left ventricular size and wall thickness. The left ventricular systolic function is normal with an estimated ejection fraction in the range of 60-65%. Left ventricular diastolic function parameters are normal. There is trace tricuspid valve regurgitation. The estimated pulmonary arterial pressure is 27 mmHg. BP: 141 / 86 HR: 79 Rhythm: Sinus MEASUREMENTS (Male / Female) Normal Values Technical Quality:Fair 2D ECHO LV Diastolic Diameter PLAX 4.3 cm 4.2 - 5.9 / 3.9 - 5.3 cm LV Systolic Diameter PLAX 2.9 cm IVS Diastolic Thickness 1.0 cm 0.6 - 1.0 / 0.6 - 0.9 cm LVPW Diastolic Thickness 1.0 cm 0.6 - 1.0 / 0.6 - 0.9 cm LV Relative Wall Thickness 0.4 LVOT Diameter 2.0 cm M-MODE Aortic Root Diameter MM 3.7 cm LA Systolic Diameter MM 3.2 cm LA Ao Ratio MM 0.9 AV Cusp Separation MM 2.5 cm DOPPLER AV Peak Velocity 144.0 cm/s AV Peak Gradient 8.3 mmHg LVOT Peak Velocity 119.0 cm/s LVOT Peak Gradient 5.7 mmHg AV Area Cont Eq pk 2.6 cm Mitral E Point Velocity 75.5 cm/s Mitral A Point Velocity 67.6 cm/s Mitral E to A Ratio 1.1 LV E' Lateral Velocity 10.9 cm/s Mitral E to LV E' Lateral Ratio 6.9 LV E' Septal Velocity 8.6 cm/s Mitral E to LV E' Septal Ratio 8.8 TR Peak Velocity 206.0 cm/s TR Peak Gradient 17.0 mmHg Right Atrial Pressure 10.0 mmHg Pulmonary Artery Systolic Pressu 27.0 mmHg Right Ventricular Systolic Press 27.0 mmHg PV Peak Velocity 122.0 cm/s PV Peak Gradient 6.0 mmHg FINDINGS LEFT VENTRICLE Normal left ventricular size and wall thickness. The left ventricular systolic function is normal wi th an estimated ejection fraction in the range of 60-65%. Left ventricular diastolic function parameters a re normal. RIGHT VENTRICLE Normal right ventricular size and systolic function. LEFT ATRIUM The left atrial size is normal. RIGHT ATRIUM The right atrial size is normal. ATRIAL SEPTUM Normal atrial septal thickness without atrial level shunting by limited color doppler interrogation. AORTA The aortic root and proximal ascending aorta are normal in size on limited imaging. MITRAL VALVE Structurally normal mitral valve. No mitral valve stenosis or regurgitation. AORTIC VALVE Trileaflet aortic valve. No aortic valve stenosis or regurgitation. TRICUSPID VALVE There is trace tricuspid valve regurgitation. The estimated pulmonary arterial pressure is 27 mmHg. PULMONARY VALVE No pulmonary valve regurgitation or stenosis. VESSELS The inferior vena cava is normal in size. PERICARDIUM No pericardial effusion. Warren Braga MD, FACC (Electronically Signed) Final Date:12 December 2017 17:42
--- NOTE | 2017-12-12 19:15 | EKG ---
Date Performed: 12/11/2017 Time Performed: 17:46:59 PTAGE: 57 years EKG: Sinus rhythm INFERIOR MYOCARDIAL INFARCTION ABNORMAL ECG PREVIOUS TRACING : 10/17/2017 15.55 Since the previous tracing, no significant change noted DOCTOR: Warren Braga Interpretating Date/Time 12/12/2017 19:13:44
[2017-12-13] VITALS (9 sets, daily range): BP systolic 136–179; BP diastolic 72–93; PULSE 70–83; RESP 15–20; TEMP 98.2–99; O2SAT 97–99
[2017-12-13] MEDS: SODIUM CHLOR 0.9% 1000 ML INJ 1,000 ML IV SCH ×2 (05:33→18:42)
[2017-12-13] MEDS: ASPIRIN 325 MG TAB PO SCH (10:03)
[2017-12-13] MEDS: SODIUM CHLORIDE 0.9% FLUSH 10 ML FLUSH IV FLUSH SCH ×2 (10:03→20:36)
--- NOTE | 2017-12-13 13:40 | HHI.PR ---
Subjective Remarks Follow up syncopal episode. The patient answers yes or no questions, but is otherwise not verbal. He states that he feels back to his normal self. He wants to go home. No chest pain or dyspnea. Objective Vitals Vital Signs Date Time Temp Pulse Resp B/P (MAP) Pulse Ox O2 Delivery O2 Flow Rate FiO2 12/13/17 10:56 98.7 83 16 136/83 (100) 99 12/13/17 07:44 98.2 70 16 179/93 (121) 99 167/91 (116) 12/13/17 03:28 98.6 72 20 153/82 (105) 99 12/12/17 23:39 98.7 71 18 171/90 (117) 99 12/12/17 20:00 99.0 82 20 133/72 (92) 98 12/12/17 20:00 82 12/12/17 17:38 98.6 69 18 133/70 (91) 98 12/12/17 16:35 86 I/O 12/12/17 12/12/17 12/12/17 12/13/17 12/13/17 12/13/17 07:00 15:00 23:00 07:00 15:00 23:00 Intake Total 1000 ml Output Total 175 ml Balance 1000 ml -175 ml Intake IV Total 1000 ml Output Urine Total 175 ml # Voids 2 # Bowel Movements 2 Result Diagram: 12/12/17 0610 12/12/17 0300 Imaging Last Impressions Carotid Artery Ultrasound 12/12/17 0000 Signed Impressions: CONCLUSION: No evidence of flow-limiting carotid stenosis. Head CT 12/11/171733 Signed Impressions: CONCLUSION: 1. No acute findings. Chest X-Ray 12/11/171733 Signed Impressions: CONCLUSION: Negative examination. Cervical Spine CT 12/11/171733 Signed Impressions: CONCLUSION: 1. Mild degenerative changes are noted without evidence for acute fracture or listhesis. Objective Remarks General: No acute distress. Heart: Regular rate and rhythm. No murmur. Lungs: Clear to auscultation bilaterally. No wheezes, rales, or rhonchi. Breathing is nonlabored. Abdomen: Soft, nontender, nondistended. Extremities: No lower extremity edema. Psych: Alert. Only answers questions with yes or no. Neuro: Right-sided weakness. Procedures None Urinary Catheter: No Vascular Central Line Catheter: No A/P Assessment and Plan 1. Syncopal episode: Patient has history of prior CVA. Head CT is negative. Carotid artery ultrasound is negative. 2D echocardiogram shows EF 60-65%. EEG consistent with mild to moderate encephalopathy. Continue neuro checks. PT/OT/ ST. Continue statin, aspirin. Neurology consultation is pending. 2. Hypokalemia: Improved with supplementation. 3. Alcohol abuse: [facility] protocol. Seizure precautions. 4. DVT prophylaxis: SCDs. 5. Anemia: H&H trending down. Labs are pending today. Discharge Planning Possible discharge soon pending neurology evaluation, labs. PT and OT are recommending SNF/rehab. Case management to assist with discharge planning. Shubham Pacheco MD Dec 13, 2017 13:40
[2017-12-13 15:13] LABS: AUTOMATED NEUTROPHIL # 6.5 TH/MM3 (1.8-7.7); BASOPHIL # 0.1 TH/MM3 (0-0.2); BASOPHIL % 0.6 % (0.0-2.0); EOSINOPHIL # 0.1 TH/MM3 (0-0.4); EOSINOPHIL % 1.7 % (0.0-4.0); HEMATOCRIT 31.3 % (39.0-51.0); HEMOGLOBIN 9.8 GM/DL (13.0-17.0); LYMPH % 14.2 % (9.0-44.0); LYMPHOCYTE # 1.2 TH/MM3 (1.0-4.8); MEAN CELL VOLUME 74.8 FL (80.0-100.0); MEAN CORPUSCULAR HEMOGLOBIN 23.4 PG (27.0-34.0); MEAN CORPUSCULAR HGB CONC 31.3 % (32.0-36.0); MEAN PLATELET VOLUME 6.9 FL (7.0-11.0); MONO % 6.8 % (0.0-8.0); MONOCYTE # 0.6 TH/MM3 (0-0.9); NEUT % 76.7 % (16.0-70.0); PLATELET COUNT 404 TH/MM3 (150-450); RED BLOOD COUNT 4.18 MIL/MM3 (4.50-5.90); RED CELL DISTRIBUTION WIDTH 19.4 % (11.6-17.2); WHITE BLOOD COUNT 8.5 TH/MM3 (4.0-11.0)
--- NOTE | 2017-12-13 15:32 | MB ---
cc: Celena Rich MD DATE: 12/13/2017 REASON FOR CONSULTATION: Syncope. HISTORY OF PRESENT ILLNESS: The patient with a history of stroke in 2013 with right hemiparesis, hypertension, hyperlipidemia, came in after a syncopal spell. He states he has been walking abnormal. He is aphasic, so his talks. States that he has been holding onto things. The time of onset is really unknown, but apparently had a syncopal spell. He may have been intoxicated yesterday. He still smokes a couple packs a day and does drink. PAST MEDICAL HISTORY: As stated. HOME MEDICINES: 1. Keflex. 2. Zantac. 3. Lopid. 4. Pravastatin. 5. Lisinopril. 6. Furosemide. 7. Gabapentin. 8. Full dose aspirin. ALLERGIES: MDRO MRSA. FAMILY HISTORY: Noncontributory. SOCIAL HISTORY: Two pack a day smoker and daily alcohol use. PHYSICAL EXAMINATION: VITAL SIGNS: Temperature is 98.4, pulse 78, respiratory rate 20, blood pressure 156/87, saturating at 99% room air. NECK: Supple. No appreciable bruits. HEART: Regular. NEUROLOGIC: He is awake and alert. He follows commands. Pupils are reactive. Face looks symmetrical. Tongue midline. Motor: He has increased tone in the right upper extremity, at best 4-/5, right leg 4+/5. Brisker on the right than on the left. He is very sensitive, withdraws. Left side is intact. Gait: He has been walking around the room, but holding onto furniture. Slow and unsteady. IMAGING: Carotid ultrasound was done yesterday. No stenosis. Cervical spine CT: Mild degenerative changes. Chest x-ray negative. CT head: No acute findings. EEG was performed as well yesterday showing mild to moderate encephalopathy. LABORATORY DATA: Hemoglobin 9.9, platelets 402,000. Chemistries: Cholesterol 79, triglycerides 127, LDL 22, HDL 31.8. Toxicology screen: UDS positive for alcohol 63. IMPRESSION: Unsteady gait. Certainly with his history, concerning for another stroke. Syncope may have been just from a fall from being dizzy versus seizure versus alcohol intoxication. I would like to get an MRI of the brain, MRA [place]. Carotid ultrasound was already done, which was negative. Check a B12 level as well, and if workup is negative, I would recommend at that point in time, discharge planning. Continue him on full dose aspirin and a statin. Watch for alcohol withdrawal. He is highly advised to stop smoking and stop drinking. Workup will be completed and recommendations as above. MD EVAN Phillip/CLAIR , 03:08 PM , 03:31 PM
--- NOTE | 2017-12-13 16:48 | RADRPT ---
EXAM DATE: 12/13/2017 4:42 PM EDT AGE/SEX: 57 years / Male INDICATIONS: CVA. CLINICAL DATA: This is the patient's initial encounter. Patient reports that signs and symptoms have been present for 1 day and indicates a pain score of 0/10. MEDICAL/SURGICAL HISTORY: Gastroesophageal reflux disease. Hypertension. Stroke. None. COMPARISON: [facility] – [place], CT BRAIN W/O CONTRAST, 12/11/2017. . TECHNIQUE: Multiplanar, multisequence examination of the brain was performed without contrast. FINDINGS: Old left MCA and right [employer] strokes. No evidence of acute infarction. No evidence of brain mass or hem orrhage. Chronic benign appearing white matter signal changes. Posterior fossa and brainstem are unre markable. Extracranial structures are benign with mild polypoid mucosal disease in the base of the ri ght maxillary antrum. CONCLUSION: Old strokes. No acute intracranial findings. Electronically signed by: Shawn Newman MD 12/13/2017 4:47 PM EDT
--- NOTE | 2017-12-13 16:51 | RADRPT ---
EXAM DATE: 12/13/2017 4:42 PM EDT AGE/SEX: 57 years / Male INDICATIONS: CVA. CLINICAL DATA: This is the patient's initial encounter. Patient reports that signs and symptoms have been present for 1 day and indicates a pain score of 0/10. MEDICAL/SURGICAL HISTORY: Gastroesophageal reflux disease. Hypertension. None. COMPARISON: [facility] – [place], MRI BRAIN W/O CONTRAST, 12/13/2017. . TECHNIQUE: 3D [id number] MRA was performed. Source images, multiplanar STS MIP, and 3D volum e MIP reconstructions were reviewed. FINDINGS: The left middle cerebral artery branches in the anterior cerebral vessels are atretic post previous s trokes. The right MCA vessels in the posterior circulation vessels are unremarkable. There is no evid ence of aneurysm or vascular malformation. CONCLUSION: Atretic left MCA and bilateral OSVALDO vessels post previous stroke. No acute findings. Electronically signed by: Shawn Newman MD 12/13/2017 4:50 PM EDT
[2017-12-13] MEDS: PRAVASTATIN SOD 40 MG TAB PO SCH (20:35)
[2017-12-14] MEDS: SODIUM CHLOR 0.9% 1000 ML INJ 1,000 ML IV SCH (00:18)
[2017-12-14 03:57] VITALS: BP 162/87; PULSE 76; RESP 17; TEMP 98.5; O2SAT 99
[2017-12-14 07:15] VITALS: PULSE 53
[2017-12-14 07:44] VITALS: BP 177/92; PULSE 71; RESP 18; TEMP 98.4; O2SAT 98
[2017-12-14] MEDS ORDERED: ENALAPRILAT 1.25 MG/ML VIAL IV PUSH PRN (08:45)
[2017-12-14] MEDS: ASPIRIN 325 MG TAB PO SCH (09:28)
[2017-12-14] MEDS: SODIUM CHLORIDE 0.9% FLUSH 10 ML FLUSH IV FLUSH SCH (09:29)
[2017-12-14] MEDS ORDERED: WALKER WHEELS/F1 MIS (11:40)
[2017-12-14] MEDS ORDERED: LISINOPRIL 10 MG TAB PO SCH (11:45)
[2017-12-14 11:47] VITALS: BP 126/74; PULSE 87; RESP 18; TEMP 98; O2SAT 97
--- NOTE | 2017-12-14 11:51 | HHI.PR ---
Subjective Remarks Follow up syncope. Patient has no complaints at this time. He wants to go home today. He states that he is able to manage the steps at home. He has refused home health. Objective Vitals Vital Signs Date Time Temp Pulse Resp B/P (MAP) Pulse Ox O2 Delivery O2 Flow Rate FiO2 12/14/17 07:44 98.4 71 18 177/92 (120) 98 12/14/17 03:57 98.5 76 17 162/87 (112) 99 12/13/17 23:20 98.2 77 15 143/91 (108) 97 12/13/17 20:00 76 12/13/17 19:24 99.0 79 16 156/72 (100) 98 12/13/17 15:00 78 12/13/17 14:58 98.4 78 20 156/87 (110) 99 I/O 12/13/17 12/13/17 12/13/17 12/14/17 12/14/17 12/14/17 06:59 14:59 22:59 06:59 14:59 22:59 Intake Total 1360 ml Balance 1360 ml Intake Oral 360 ml IV Total 1000 ml Result Diagram: 12/13/17 1437 12/12/17 0300 Imaging Last Impressions Head Magnetic Resonance Angiography 12/13/17 0000 Signed Impressions: CONCLUSION: Atretic left MCA and bilateral OSVALDO vessels post previous stroke. No acute findi ngs. Brain MRI 12/13/17 0000 Signed Impressions: CONCLUSION: Old strokes. No acute intracranial findings. Carotid Artery Ultrasound 12/12/17 0000 Signed Impressions: CONCLUSION: No evidence of flow-limiting carotid stenosis. Head CT 12/11/171733 Signed Impressions: CONCLUSION: 1. No acute findings. Chest X-Ray 12/11/171733 Signed Impressions: CONCLUSION: Negative examination. Cervical Spine CT 12/11/171733 Signed Impressions: CONCLUSION: 1. Mild degenerative changes are noted without evidence for acute fracture or listhesis. Objective Remarks General: No acute distress. Heart: Regular rate and rhythm. No murmur. Lungs: Clear to auscultation bilaterally. No wheezes, rales, or rhonchi. Breathing is nonlabored. Abdomen: Soft, nontender, nondistended. Extremities: No lower extremity edema. Psych: Alert. Only answers questions with yes or no. Neuro: Right-sided weakness. Procedures None Urinary Catheter: No Vascular Central Line Catheter: No A/P Assessment and Plan 1. Syncopal episode: Patient has history of prior CVA. Head CT is negative. Carotid artery ultrasound is negative. 2D echocardiogram shows EF 60-65%. EEG consistent with mild to moderate encephalopathy. Continue neuro checks. PT/OT/ ST. Continue statin, aspirin. Appreciate neurology recommendations. MRI shows old stroke. 2. Hypokalemia: Improved with supplementation. 3. Alcohol abuse: CIWA protocol. Seizure precautions. 4. DVT prophylaxis: SCDs. 5. Anemia: H&H stable. Discharge Planning Possible discharge home today pending PT recommendations. Shubham Pacheco MD Dec 14, 2017 11:51
[2017-12-14] MEDS ORDERED: FAMOTIDINE 20 MG TAB PO SCH (12:00)
[2017-12-14] MEDS ORDERED: GABAPENTIN 300 MG CAP PO SCH (13:00)
--- NOTE | 2017-12-14 14:09 | HHI.FF ---
Face to Face Verification Diagnosis: (1) History of cerebrovascular accident (CVA) with residual deficit (2) Right hemiparesis Physical Therapy Order: Evaluate and Treat Home Health Nursing Order: Nursing assessment with vital signs I have seen patient Buck Whelan on 12/14/17. My clinical findings support the need for the requested home health care services because: High risk of falls I certify that my clinical findings support that this patient is homebound because: Unsteady gait/balance Shubham Pacheco MD Dec 14, 2017 14:09
--- NOTE | 2017-12-14 14:20 | HHI.DS ---
Discharge Summary Admission Date Dec 11, 2017 at 20:36 Discharge Date: Dec 14, 2017 Admitting Diagnosis syncope (1) History of cerebrovascular accident (CVA) with residual deficit ICD Code: I69.30 - Unspecified sequelae of cerebral infarction (2) Right hemiparesis ICD Code: G81.90 - Right hemiparesis Status: Acute (3) Syncope ICD Code: R55 - Syncope and collapse Status: Acute Procedures None Brief History - From Admission 57 y/o male with a history of HTN, and HLD was brought to the ED after having a syncopal episode while intoxicated. Patient is aphasic and only able to answer yes and no questions, orientation is questionable. He denies any chest pain or sob. He states yes to drinking a lot today and falling and hitting his head. States no to taking any medications at home. He is able use his fingers for communication such as putting up 2 fingers for 2 PPD. He is weaker on the right side. No family is at the bedside. 0200: RN was able to get a hold of patient's who states this is patient's baseline and he only is able to answer yes or no questions for the last 3 years. MRI and neurology consult was cancelled since this is not a new neuro change. CBC/BMP: 12/13/17 1437 12/12/17 0300 Significant Findings Laboratory Tests Test 12/11/17 17:40 12/12/17 00:58 12/12/17 03:00 12/12/17 06:10 White Blood Count 11.3 TH/MM3 (4.0-11.0) Hemoglobin 11.7 GM/DL (13.0-17.0) 9.9 GM/DL (13.0-17.0) Hematocrit 37.2 % (39.0-51.0) 31.6 % (39.0-51.0) Mean Corpuscular Volume 75.9 FL (80.0-100.0) 75.4 FL (80.0-100.0) Mean Corpuscular Hemoglobin 23.9 PG (27.0-34.0) 23.7 PG (27.0-34.0) Mean Corpuscular Hemoglobin Concent 31.5 % (32.0-36.0) 31.5 % (32.0-36.0) Red Cell Distribution Width 19.3 % (11.6-17.2) 19.2 % (11.6-17.2) Platelet Count 468 TH/MM3 (150-450) Monocytes (%) (Auto) 10.8 % (0.0-8.0) 13.2 % (0.0-8.0) Monocytes # (Auto) 1.2 TH/MM3 (0-0.9) 1.2 TH/MM3 (0-0.9) Albumin 3.1 GM/DL (3.4-5.0) 2.5 GM/DL (3.4-5.0) Aspartate Amino Transf (AST/SGOT) 6 U/L (15-37) Potassium Level 2.7 MEQ/L (3.5-5.1) Carbon Dioxide Level 18.2 MEQ/L (21.0-32.0) Anion Gap 17 MEQ/L (5-15) Troponin I LESS THAN 0.02 NG/ML Ethyl Alcohol Level 63 MG/DL (0-5) Blood Gas HCO3 21 mmol/L (22-26) Blood Gas Base Excess -2.2 mmol/L (-2-2) Arterial Blood pH 7.45 (7.380-7.420) Arterial Blood Partial Pressure CO2 31 mmHg (38-42) Blood Gas Hemoglobin 10.1 G/DL (12.0-16.0) Blood Urea Nitrogen 4 MG/DL (7-18) Creatinine 0.57 MG/DL (0.60-1.30) Total Protein 5.8 GM/DL (6.4-8.2) Calcium Level 7.8 MG/DL (8.5-10.1) Alanine Aminotransferase (ALT/SGPT) 11 U/L (12-78) Chloride Level 108 MEQ/L (98-107) Cholesterol Level 79 MG/DL (120-200) HDL Cholesterol 31.8 MG/DL (40.0-60.0) Red Blood Count 4.19 MIL/MM3 (4.50-5.90) Mean Platelet Volume 6.8 FL (7.0-11.0) Neutrophils (%) (Auto) 72.9 % (16.0-70.0) Test 12/13/17 14:37 12/13/17 15:47 Red Blood Count 4.18 MIL/MM3 (4.50-5.90) Hemoglobin 9.8 GM/DL (13.0-17.0) Hematocrit 31.3 % (39.0-51.0) Mean Corpuscular Volume 74.8 FL (80.0-100.0) Mean Corpuscular Hemoglobin 23.4 PG (27.0-34.0) Mean Corpuscular Hemoglobin Concent 31.3 % (32.0-36.0) Red Cell Distribution Width 19.4 % (11.6-17.2) Mean Platelet Volume 6.9 FL (7.0-11.0) Neutrophils (%) (Auto) 76.7 % (16.0-70.0) Imaging Last Impressions Head Magnetic Resonance Angiography 12/13/17 Signed Impressions: CONCLUSION: Atretic left MCA and bilateral OSVALDO vessels post previous stroke. No acute findi ngs. Brain MRI 12/13/17 Signed Impressions: CONCLUSION: Old strokes. No acute intracranial findings. Carotid Artery Ultrasound 12/12/17 Signed Impressions: CONCLUSION: No evidence of flow-limiting carotid stenosis. Head CT 12/11/171733 Signed Impressions: CONCLUSION: 1. No acute findings. Chest X-Ray 12/11/171733 Signed Impressions: CONCLUSION: Negative examination. Cervical Spine CT 12/11/171733 Signed Impressions: CONCLUSION: 1. Mild degenerative changes are noted without evidence for acute fracture or listhesis. PE at Discharge General: No acute distress. Heart: Regular rate and rhythm. No murmur. Lungs: Clear to auscultation bilaterally. No wheezes, rales, or rhonchi. Breathing is nonlabored. Abdomen: Soft, nontender, nondistended. Extremities: No lower extremity edema. Psych: Alert. Only answers questions with yes or no. Neuro: Right-sided weakness. Hospital Course Patient was admitted for further workup of syncopal episode. PT/OT/ST were consulted. EEG showed slowing consistent with encephalopathy. 2D echocardiogram showed ejection fraction of 60-65% with trace tricuspid valve regurgitation. Head CT was negative. Patient was evaluated by neurology. MRI/ MRA showed findings consistent with old stroke, but no acute changes. Physical therapy's initial recommendations were for rehab. Patient refused rehab, which would have been difficult to arrange due to the patient's insurance. On reevaluation by physical therapy, he was felt to be safe for home health with physical therapy and assistance from family. The patient's stated that he had previously refused home health that had been arranged by another physician. Pt Condition on Discharge: Stable Discharge Disposition: Disch w/ Home Health Serv Discharge Time: > 30 minutes Discharge Instructions DIET: Follow Instructions for: Heart Healthy Diet Activities you can perform: See Additionl Instruction Other Activity Instructions: With assistance/assistive device Follow up Referrals: Neurology - 1 Week with Celena Rich MD PCP Follow-up - 1 Week New Medications: Walker with Front Wheels (Walker with Front Wheels) 1 Mis Mis EA .XX DIRECTED, #1 0 Refills Continued Medications: Aspirin (Aspirin 325 Mg Tab) 325 Mg Tab 325 MG PO DAILY, TAB Gabapentin (Gabapentin) 600 Mg Tab 600 MG PO TID for Pain Management, TAB PRN Gemfibrozil (Gemfibrozil) 600 Mg Tab 600 MG PO BID, #60 TAB 6 Refills Lisinopril 10 mg (Lisinopril 10 mg) 10 Mg Tab 10 MG PO BID, #60 6 Refills Pravastatin Sodium (Pravastatin Sodium) 40 Mg Tab 40 MG PO DAILY, #30 TAB 6 Refills Ranitidine HCl (Zantac 150 Mg Tab) 150 Mg Tab 150 MG GT Q12 for Manage Heartburn, #60 TAB Discontinued Medications: Furosemide (Furosemide) 10 Mg/Ml Gilma 20 MG PO, #60 ML Shubham Pacheco MD Dec 14, 2017 14:20
[2017-12-14 15:41] VITALS: BP 123/77; PULSE 97; RESP 16; TEMP 98.6; O2SAT 100
--- NOTE | 2017-12-14 15:41 | HM ---
Date Performed: 12/12/2017 Time Performed: 18:13:00 HOOKUP DATE: 12/12/17 06:13:00 PM Wed ANALYSIS START TIME: 12/12/2017 6:18:00 PM ANALYSIS END TIME: 12/13/2017 4:10:24 PM PATIENT AGE: 57 PATIENT HEIGHT PATIENT WEIGHT DRUG LIST PATIENT DIAGNOSIS: SYNCOPE TEST NARRATIVE: The patient's average heart rate was 78 BPM. Heart rates greater than 120 B PM were noted < 1% of the time. Heart rates less than 50 BPM were noted < 1% of the time. No ava ses exceeding 2.0 seconds were noted. 250 ventricular ectopics, which represented < 1% of the tot al beat count, were noted. The highest ventricular ectopic frequency occurred from 09:00 AM to 10:00 AM Analia. During this time 21 VE(s) occurred. Ventricular ectopics were observed as 238 isolated yolanda t(s) and as 6 couplet(s). No runs were noted. 55 supraventricular ectopics, which represented < 1% of the total beat count, were noted. The highest supraventricular ectopic frequency occurred from 06:00 PM to 07:00 PM Wed. During this time 12 SVE(s) occurred. No episodes of ST depression (de fined as -1.0 mm or more) were noted in channel 1. No episodes of ST depression (defined as -1.0 mm or more) were noted in channel 2. No episodes of ST depression (defined as -1.0 mm or more) were not ed in channel 3. TEST INTERPRETATION: Patient was monitored for 21 hours and 52 minutes. Minimum heart rate 49, m aximum heart rate 128, average heart rate 78. The underlying rhythm was normal sinus. There were freq uent short runs of PACs/SVT, maximum 9 beats at 129 bpm. There were 238 PVCs over the recording perio d. Conclusion: Occasional couplet PVCs, short runs of PACs/SVT, maximum heart rate 129 bpm, maximum number of beats was 9. Overall, fairly benign Holter. Signed by : Rosa Zurita
== END 2017-12-14 16:25 | disposition home or self-care (01) ==
LOC: NEPC 17:26 → NEDA 20:36 → NEPGCP 12-12 00:22
PROVIDERS: ADMIT Family Medicine; ATTEND Family Medicine
DX: R55 Syncope and collapse (principal); E87.6 Hypokalemia; F10.10 Alcohol abuse, uncomplicated; R47.01 Aphasia; R94.31 Abnormal electrocardiogram [ECG] [EKG]; R94.01 Abnormal electroencephalogram [EEG]; E86.0 Dehydration; D64.9 Anemia, unspecified; I10 Essential (primary) hypertension; E78.5 Hyperlipidemia, unspecified; I69.351 Hemiplegia and hemiparesis following cerebral infarction affecting right dominant side; F17.200 Nicotine dependence, unspecified, uncomplicated; Z79.899 Other long term (current) drug therapy; Z79.82 Long term (current) use of aspirin; Y90.3 Blood alcohol level of 60-79 mg/100 ml
CPT/HCPCS: 36600; 70450; 70544; 70551; 71045; 72125; 80053; 80061; 80307; 82550; 82607; 82805; 83735; 84484; 85025; 85610; 85730; 92523; 93005; 93225; 93226; 93306; 93880; 95819; 96361; 96365; 96366; 96375; 97116; 97161; 97167; 99285; G0378; G8987; G8988; J3480; J7030

== ENCOUNTER 2018-04-25 20:31 | Inpatient (IN) ==
[2018-04-25] MEDS ORDERED: Pantoprazole Inj 40 MG Vial IV.PUSH ONE (20:40)
[2018-04-25] MEDS ORDERED: Sod Chloride 0.9% Inj 1,000 ML IV.SIG ONE (20:40)
--- NOTE | 2018-04-25 21:31 | XR ---
EXAM DATE: 04/25/2018 8:59 PM EDT AGE/SEX: 57 years / Male INDICATIONS: Dehydration. CLINICAL DATA: This is the patient's initial encounter. Patient reports that signs and symptoms have been present for 1 day and indicates a pain score of 0/10. MEDICAL/SURGICAL HISTORY: None. None. COMPARISON: . FINDINGS: The abdominal bowel gas pattern is normal. No abnormal masses, calcifications, or organomegaly is s een. The osseous structures are unremarkable. CONCLUSION: No acute findings. Electronically signed by: Alfredo Liao MD 04/25/2018 9:30 PM EDT
--- NOTE | 2018-04-25 21:38 | XR ---
EXAM DATE: 04/25/2018 8:59 PM EDT AGE/SEX: 57 years / Male INDICATIONS: Productive cough. CLINICAL DATA: This is the patient's initial encounter. Patient reports that signs and symptoms have been present for 1 day and indicates a pain score of 0/10. MEDICAL/SURGICAL HISTORY: None. None. [place]PAR[place] [facility] [place]. . FINDINGS: A single AP view of the chest demonstrates the lungs to be symmetrically aerated without evidence of mass, infiltrate or effusion. The cardiomediastinal contours are unremarkable. CONCLUSION: No active disease. Previous right eighth rib fracture. Electronically signed by: Alfredo Liao MD 04/25/2018 9:37 PM EDT
[2018-04-25 21:39] LABS: Baso % (Auto) 0.3 % (0.0-2.0); Eos % (Auto) 0.3 % (0.0-4.0); Hematocrit 44.4 % (39.0-51.0); Hemoglobin 14.6 gm/dL (13.0-17.0); Lymph # (Auto) 1.6 th/mm3 (1.0-4.8); Lymph % (Auto) 19.7 % (9.0-44.0); Mean Corpuscular HGB Conc 32.9 % (32.0-36.0); Mean Corpuscular Volume 81.9 fL (80.0-100.0); Mean Platelet Volume 7.6 fL (7.0-11.0); Mono # (Auto) 0.6 th/mm3 (0.0-0.9); Neut # (Auto) 5.8 th/mm3 (1.8-7.7); Neut % (Auto) 71.7 % (16.0-70.0); Platelet Count 176 th/mm3 (150-450); Red Blood Count 5.42 mil/mm3 (4.50-5.90); Red Cell Distribution Width 19.2 % (11.6-17.2)
[2018-04-25 21:51] LABS: Alanine Aminotransferase 20 U/L (12-78)
[2018-04-25 22:01] LABS: Alkaline Phosphatase 91 U/L (45-117); Thyroid Stimulating Hormone 0.507 uIU/mL (0.358-3.740)
[2018-04-25 22:10] LABS: Albumin 2.9 g/dL (3.4-5.0); Anion Gap 9 meq/L (5-15); Aspartate Aminotransferase 15 U/L (15-37); Blood Urea Nitrogen 12 mg/dL (7-18); Calcium 8.9 mg/dL (8.5-10.1); Carbon Dioxide 32.2 meq/L (21.0-32.0); Chloride 100 meq/L (98-107); Glomerular Filtration Rate Greater Than 89 mL/min (>89); Glucose,Random 84 mg/dL (74-106); Lipase 64 U/L (73-393); Magnesium 2.3 mg/dL (1.5-2.5); Sodium 141 meq/L (136-145)
[2018-04-25 22:11] LABS: Potassium 5.3 meq/L (3.5-5.1)
--- NOTE | 2018-04-25 23:25 | ED ---
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 Patient presented via EMS with his significant other who gave EMS the report. Patient is mostly nonverbal secondary to stroke, he can answer yes and no. EVAC stated the patient did not want to come to the hospital. EMS stated that patient's home was extremely disheveled, there was fecal matter on the bed where patient was sleeping, there were towels and blankets covered in fecal matter, there were bedbugs that patient's significant other worse flicking off of her. Significant other stated that she is having a hard time taking care of him. On arrival patient had no complaints. Associated symptoms: Reports denies other symptoms Related Data Allergies Allergy/AdvReac Type Severity Reaction Status Date / Time No Known Allergies Allergy Verified 04/25/18 20:36 Review of Systems ROS: all other systems reviewed are negative COUNT INCLUDES [facility] Medical History Medical History Hernia (Acute) History of stroke (Acute) No significant past surgical history (Acute) Smoker (Acute) Speech impairment (Acute) Social History Social History Substance History: No History of Abuse Second Hand Smoke Exposure: Yes Smoking Status: Current every day smoker Tobacco Type: Cigarettes How Often Do You Have a Drink Containing Alcohol: Monthly or less Recent Travel in [facility] within the Last 8 Weeks: No Recent Out of Country Travel within the Last 8 Weeks: No Immunization History Tetanus Immunization: Unsure Exam Narrative Exam Narrative: GENERAL: Cachectic, alert male. Disheveled, presenting in no acute distress. SKIN: Focused skin assessment warm/dry. Patient had dried stool to his buttocks and groin. His skin appears dirty, he has dried fecal matter under his fingernails, the back of his head has matted hair and he has what appears to look food or vomit in his bowman. HEAD: Atraumatic. Normocephalic. EYES: Pupils equal and round. No scleral icterus. No injection or drainage. ENT: No nasal bleeding or discharge. Mucous membranes pink and moist. NECK: Trachea midline. No JVD. CARDIOVASCULAR: Regular rate and rhythm. No murmur appreciated. RESPIRATORY: No accessory muscle use. Clear to auscultation. Breath sounds equal bilaterally. GASTROINTESTINAL: Abdomen soft, non-tender, nondistended. Hepatic and splenic margins not palpable. MUSCULOSKELETAL: No obvious deformities. No clubbing. No cyanosis. No edema. NEUROLOGICAL: Awake and alert. No obvious cranial nerve deficits. Motor grossly within normal limits. Normal speech. PSYCHIATRIC: Appropriate mood and affect; insight and judgment normal. Course Initial Documented Vital Signs Temperature 98.0 F 04/25/18 20:36 Pulse Rate 83 04/25/18 20:36 Respiratory Rate 18 04/25/18 20:36 Blood Pressure 136/93 H 04/25/18 20:36 Pulse Oximetry 97 04/25/18 20:36 Last Documented Vital Signs Temperature 98.8 F 05/01/18 19:00 Pulse Rate 103 H 05/01/18 21:45 Respiratory Rate 17 05/01/18 21:45 Blood Pressure 130/90 05/01/18 19:00 Pulse Oximetry 100 05/01/18 20:00 Critical Care Time Critical Care Time: Yes Total Critical Care Time: 30 Attestation: Aggregate critical care time was 30 minutes. Time to perform other separately billable procedures was not included in the critical care time. My time did not include minutes spent treating any other patients simultaneously or on activities that did not directly contribute to the patient's treatment. The services I provided to this patient were to treat and/or prevent clinically significant deterioration that could result in: , decompensation, deterioration I provided critical care services requiring my management, as noted below: Chart data review, documentation time, medication orders and management, vital sign assessments/reviewing monitor data, ordering and reviewing lab tests, ordering and interpreting/reviewing x-rays and diagnostic studies, care of the patient and discussion of the patient with the admitting physicians. Medical Decision Making MDM Narrative Medical decision making narrative: Patient is 57-year-old male presenting to emerge from for evaluation of reported nausea, vomiting and abdominal pain. Patient denied any complaints on arrival. He was covered in fecal matter and very dirty. Abdominal exam is benign. Labs and imaging ordered and pending. Patient's vital signs are stable, patient was given IV fluids and Zofran. Labs reviewed, no acute findings identified. Chest x-ray and KUB show no acute findings. Pt cannot safely be discharged home. Significant other is very overwhelmed, living conditions are reported as deplorable, pt was extremely unkept. DCf was notified. Pt is medically cleared awaiting case management/ social admit. It is 8:07 AM, patient is currently waiting for placement by case management. I was called to the room by nursing as they were concerned as patient's pulse ox dropped to the low 80s. Patient is a phasic due to past strokes, he is able to tell me that he is a 2 pack/day smoker. Patient currently with a pulse ox of 82% on room air, he does not use home oxygen at baseline. Overall, patient with no complaints, plan to repeat lab work as well as x-ray of the chest and obtain PE study to rule out pulmonary embolism. A stat ABG was also ordered. Patient hypoxic with a pulse ox of 75% on room air on the ABG, his PCO2 is 45 - patient is hypoxic and required admission to the hospital, Vascular access team as well as my staff unable to obtain a 20-gauge needle in the AC, I am unable to obtain a CTA to rule out pulmonary embolism. Plan to obtain CT of the head to rule out intracranial hemorrhage given his altered mental status, I will change order to a VQ scan as well as a stat ultrasound of the lower extremities to rule out DVT. Heparin bolus as well as drip will be ordered and administered once patient has CT of the head has resulted as I am concerned that his hypoxia is due to a pe case reviewed with Dr. Pierre who accepts pt to service Medical Screen Exam Complete: Yes Emergency Medical Condition: Yes Differential Diagnosis Differential Diagnosis: Bowel obstruction versus pancreatitis versus metabolic abnormality versus cholecystitis versus viral syndrome versus neglect versus other Medical Records Medical records reviewed: Yes I reviewed the patient's medical records. Lab Data Lab results reviewed: Yes I reviewed the patient's lab results. Result diagrams: 05/01/18 05:35 05/01/18 05:35 Lab Results 04/25/18 04/25/18 04/26/18 Range/Units 21:16 21:16 08:07 WBC 8.0 (4.0-11.0) th/mm3 RBC 5.42 (4.50-5.90) mil/mm3 Hgb 14.6 (13.0-17.0) gm/dL Hct 44.4 (39.0-51.0) % MCV 81.9 (80.0-100.0) fL MCH 27.0 (27.0-34.0) pg MCHC 32.9 (32.0-36.0) % RDW 19.2 H (11.6-17.2) % Plt Count 176 (150-450) th/mm3 MPV 7.6 (7.0-11.0) fL Prelim Diff (Auto) Neut % (Auto) 71.7 H (16.0-70.0) % Lymph % (Auto) 19.7 (9.0-44.0) % Hale % (Auto) 8.0 (0.0-8.0) % Eos % (Auto) 0.3 (0.0-4.0) % Baso % (Auto) 0.3 (0.0-2.0) % Neut # (Auto) 5.8 (1.8-7.7) th/mm3 Lymph # (Auto) 1.6 (1.0-4.8) th/mm3 Hale # (Auto) 0.6 (0.0-0.9) th/mm3 Eos # (Auto) 0.0 (0.0-0.4) th/mm3 Baso # (Auto) 0.0 (0.0-0.2) th/mm3 WBC Differential . Diff Scan Seg Neuts % (Manual) (16-70) % Band Neuts % (Manual) (0-6) % Lymphocytes % (Manual) (9-44) % Monocytes % (Manual) (0-8) % Abs Neuts (Manual) (1.8-7.7) th/mm3 Differential Comment Auto diff final Platelet Estimate (Normal) Platelet Morphology (Normal) RBC Morphology (Normal) PT (9.8-11.6) sec INR Ratio APTT (24.3-30.1) sec Puncture Site Right radial Patient Temperature 98.6 O2 Saturation 75 L* (90-100) % ABG pH 7.43 H (7.380-7.420) ABG pCO2 43 H (38-42) mmHg ABG pO2 45 L* (61-120) mmHg ABG HCO3 29 H (22-26) mmol/L ABG O2 Content 13.6 (12.0-20.0) Vol % ABG Base Excess 4.4 H (-2-2) mmol/L ABG Methemoglobin 0.6 (0-2) % Sean Test Present Hemoglobin 12.9 (12.0-16.0) G/DL Carboxyhemoglobin 0.9 (0-4) % Inspired O2 21 % Critical Value Yes Sodium 141 (136-145) meq/L Potassium 5.3 H (3.5-5.1) meq/L Chloride 100 (98-107) meq/L Carbon Dioxide 32.2 H (21.0-32.0) meq/L Anion Gap 9 (5-15) meq/L BUN 12 (7-18) mg/dL Creatinine 0.77 (0.60-1.30) mg/dL Estimated GFR Greater than 89 (>89) mL/min Random Glucose 84 (74-106) mg/dL Calcium 8.9 (8.5-10.1) mg/dL Prot Corrected Calcium (8.5-10.1) mg/dL Phosphorus (2.5-4.9) mg/dL Magnesium 2.3 (1.5-2.5) mg/dL Total Bilirubin 2.3 H (0.2-1.0) mg/dL AST 15 (15-37) U/L ALT 20 (12-78) U/L Alkaline Phosphatase 91 (45-117) U/L Troponin I (0.02-0.05) ng/mL Total Protein 7.0 (6.4-8.2) g/dL Albumin 2.9 L (3.4-5.0) g/dL Lipase 64 L (73-393) U/L TSH 0.507 (0.358-3.740) uIU/mL Nasal Screen MRSA (PCR) (Negative) 04/26/18 04/26/18 04/26/18 Range/Units 08:15 08:15 11:15 WBC 6.5 (4.0-11.0) th/mm3 RBC 5.20 (4.50-5.90) mil/mm3 Hgb 14.2 (13.0-17.0) gm/dL Hct 43.2 (39.0-51.0) % MCV 83.1 (80.0-100.0) fL MCH 27.3 (27.0-34.0) pg MCHC 32.9 (32.0-36.0) % RDW 19.2 H (11.6-17.2) % Plt Count 164 (150-450) th/mm3 MPV 7.6 (7.0-11.0) fL Prelim Diff (Auto) Slide review pending Neut % (Auto) 73.7 H (16.0-70.0) % Lymph % (Auto) 18.2 (9.0-44.0) % Hale % (Auto) 7.4 (0.0-8.0) % Eos % (Auto) 0.5 (0.0-4.0) % Baso % (Auto) 0.2 (0.0-2.0) % Neut # (Auto) 4.8 (1.8-7.7) th/mm3 Lymph # (Auto) 1.2 (1.0-4.8) th/mm3 Hale # (Auto) 0.5 (0.0-0.9) th/mm3 Eos # (Auto) 0.0 (0.0-0.4) th/mm3 Baso # (Auto) 0.0 (0.0-0.2) th/mm3 WBC Differential Manual diff final Diff Scan Seg Neuts % (Manual) 75 H (16-70) % Band Neuts % (Manual) 5 (0-6) % Lymphocytes % (Manual) 13 (9-44) % Monocytes % (Manual) 7 (0-8) % Abs Neuts (Manual) 5.2 (1.8-7.7) th/mm3 Differential Comment . Platelet Estimate Normal (Normal) Platelet Morphology Normal (Normal) RBC Morphology (Normal) PT 11.0 (9.8-11.6) sec INR 1.1 Ratio APTT 29.0 (24.3-30.1) sec Puncture Site Patient Temperature O2 Saturation (90-100) % ABG pH (7.380-7.420) ABG pCO2 (38-42) mmHg ABG pO2 (61-120) mmHg ABG HCO3 (22-26) mmol/L ABG O2 Content (12.0-20.0) Vol % ABG Base Excess (-2-2) mmol/L ABG Methemoglobin (0-2) % Sean Test Hemoglobin (12.0-16.0) G/DL Carboxyhemoglobin (0-4) % Inspired O2 % Critical Value Sodium 143 (136-145) meq/L Potassium 3.7 D (3.5-5.1) meq/L Chloride 107 (98-107) meq/L Carbon Dioxide 28.4 (21.0-32.0) meq/L Anion Gap 8 (5-15) meq/L BUN 10 (7-18) mg/dL Creatinine 0.53 L (0.60-1.30) mg/dL Estimated GFR Greater than 89 (>89) mL/min Random Glucose 75 (74-106) mg/dL Calcium 8.0 L D (8.5-10.1) mg/dL Prot Corrected Calcium (8.5-10.1) mg/dL Phosphorus (2.5-4.9) mg/dL Magnesium (1.5-2.5) mg/dL Total Bilirubin 1.7 H (0.2-1.0) mg/dL AST 19 (15-37) U/L ALT 17 (12-78) U/L Alkaline Phosphatase 80 (45-117) U/L Troponin I (0.02-0.05) ng/mL Total Protein 6.1 L D (6.4-8.2) g/dL Albumin 2.6 L (3.4-5.0) g/dL Lipase (73-393) U/L TSH (0.358-3.740) uIU/mL Nasal Screen MRSA (PCR) (Negative) 04/26/18 04/26/18 04/26/18 Range/Units 14:08 15:46 17:10 WBC (4.0-11.0) th/mm3 RBC (4.50-5.90) mil/mm3 Hgb (13.0-17.0) gm/dL Hct (39.0-51.0) % MCV (80.0-100.0) fL MCH (27.0-34.0) pg MCHC (32.0-36.0) % RDW (11.6-17.2) % Plt Count (150-450) th/mm3 MPV (7.0-11.0) fL Prelim Diff (Auto) Neut % (Auto) (16.0-70.0) % Lymph % (Auto) (9.0-44.0) % Hale % (Auto) (0.0-8.0) % Eos % (Auto) (0.0-4.0) % Baso % (Auto) (0.0-2.0) % Neut # (Auto) (1.8-7.7) th/mm3 Lymph # (Auto) (1.0-4.8) th/mm3 Hale # (Auto) (0.0-0.9) th/mm3 Eos # (Auto) (0.0-0.4) th/mm3 Baso # (Auto) (0.0-0.2) th/mm3 WBC Differential Diff Scan Seg Neuts % (Manual) (16-70) % Band Neuts % (Manual) (0-6) % Lymphocytes % (Manual) (9-44) % Monocytes % (Manual) (0-8) % Abs Neuts (Manual) (1.8-7.7) th/mm3 Differential Comment Platelet Estimate (Normal) Platelet Morphology (Normal) RBC Morphology (Normal) PT (9.8-11.6) sec INR Ratio APTT 105.6 H* D (24.3-30.1) sec Puncture Site Patient Temperature O2 Saturation (90-100) % ABG pH (7.380-7.420) ABG pCO2 (38-42) mmHg ABG pO2 (61-120) mmHg ABG HCO3 (22-26) mmol/L ABG O2 Content (12.0-20.0) Vol % ABG Base Excess (-2-2) mmol/L ABG Methemoglobin (0-2) % Sean Test Hemoglobin (12.0-16.0) G/DL Carboxyhemoglobin (0-4) % Inspired O2 % Critical Value Sodium (136-145) meq/L Potassium (3.5-5.1) meq/L Chloride (98-107) meq/L Carbon Dioxide (21.0-32.0) meq/L Anion Gap (5-15) meq/L BUN (7-18) mg/dL Creatinine (0.60-1.30) mg/dL Estimated GFR (>89) mL/min Random Glucose (74-106) mg/dL Calcium (8.5-10.1) mg/dL Prot Corrected Calcium (8.5-10.1) mg/dL Phosphorus (2.5-4.9) mg/dL Magnesium (1.5-2.5) mg/dL Total Bilirubin (0.2-1.0) mg/dL AST (15-37) U/L ALT (12-78) U/L Alkaline Phosphatase (45-117) U/L Troponin I Less than 0.02 L (0.02-0.05) ng/mL Total Protein (6.4-8.2) g/dL Albumin (3.4-5.0) g/dL Lipase (73-393) U/L TSH (0.358-3.740) uIU/mL Nasal Screen MRSA (PCR) Not detected (Negative) 04/26/18 04/27/18 04/27/18 Range/Units 20:14 03:37 03:37 WBC 4.1 (4.0-11.0) th/mm3 RBC 4.06 L (4.50-5.90) mil/mm3 Hgb 10.9 L D (13.0-17.0) gm/dL Hct 32.9 L (39.0-51.0) % MCV 80.9 (80.0-100.0) fL MCH 26.9 L (27.0-34.0) pg MCHC 33.2 (32.0-36.0) % RDW 18.9 H (11.6-17.2) % Plt Count 150 (150-450) th/mm3 MPV 7.5 (7.0-11.0) fL Prelim Diff (Auto) Neut % (Auto) 83.7 H (16.0-70.0) % Lymph % (Auto) 13.9 (9.0-44.0) % Hale % (Auto) 2.3 (0.0-8.0) % Eos % (Auto) 0.1 (0.0-4.0) % Baso % (Auto) 0.0 (0.0-2.0) % Neut # (Auto) 3.4 (1.8-7.7) th/mm3 Lymph # (Auto) 0.6 L (1.0-4.8) th/mm3 Hale # (Auto) 0.1 (0.0-0.9) th/mm3 Eos # (Auto) 0.0 (0.0-0.4) th/mm3 Baso # (Auto) 0.0 (0.0-0.2) th/mm3 WBC Differential . Diff Scan Seg Neuts % (Manual) (16-70) % Band Neuts % (Manual) (0-6) % Lymphocytes % (Manual) (9-44) % Monocytes % (Manual) (0-8) % Abs Neuts (Manual) (1.8-7.7) th/mm3 Differential Comment Auto diff final Platelet Estimate (Normal) Platelet Morphology (Normal) RBC Morphology (Normal) PT (9.8-11.6) sec INR Ratio APTT 79.0 H D (24.3-30.1) sec Puncture Site Patient Temperature O2 Saturation (90-100) % ABG pH (7.380-7.420) ABG pCO2 (38-42) mmHg ABG pO2 (61-120) mmHg ABG HCO3 (22-26) mmol/L ABG O2 Content (12.0-20.0) Vol % ABG Base Excess (-2-2) mmol/L ABG Methemoglobin (0-2) % Sean Test Hemoglobin (12.0-16.0) G/DL Carboxyhemoglobin (0-4) % Inspired O2 % Critical Value Sodium 146 H (136-145) meq/L Potassium 2.6 L* D (3.5-5.1) meq/L Chloride 109 H (98-107) meq/L Carbon Dioxide 30.5 (21.0-32.0) meq/L Anion Gap 7 (5-15) meq/L BUN 8 (7-18) mg/dL Creatinine 0.50 L (0.60-1.30) mg/dL Estimated GFR Greater than 89 (>89) mL/min Random Glucose 151 H (74-106) mg/dL Calcium 7.8 L (8.5-10.1) mg/dL Prot Corrected Calcium (8.5-10.1) mg/dL Phosphorus (2.5-4.9) mg/dL Magnesium 2.0 (1.5-2.5) mg/dL Total Bilirubin (0.2-1.0) mg/dL AST (15-37) U/L ALT (12-78) U/L Alkaline Phosphatase (45-117) U/L Troponin I (0.02-0.05) ng/mL Total Protein (6.4-8.2) g/dL Albumin (3.4-5.0) g/dL Lipase (73-393) U/L TSH (0.358-3.740) uIU/mL Nasal Screen MRSA (PCR) (Negative) 04/27/18 04/27/18 04/27/18 Range/Units 03:37 13:55 20:28 WBC (4.0-11.0) th/mm3 RBC (4.50-5.90) mil/mm3 Hgb (13.0-17.0) gm/dL Hct (39.0-51.0) % MCV (80.0-100.0) fL MCH (27.0-34.0) pg MCHC (32.0-36.0) % RDW (11.6-17.2) % Plt Count (150-450) th/mm3 MPV (7.0-11.0) fL Prelim Diff (Auto) Neut % (Auto) (16.0-70.0) % Lymph % (Auto) (9.0-44.0) % Hale % (Auto) (0.0-8.0) % Eos % (Auto) (0.0-4.0) % Baso % (Auto) (0.0-2.0) % Neut # (Auto) (1.8-7.7) th/mm3 Lymph # (Auto) (1.0-4.8) th/mm3 Hale # (Auto) (0.0-0.9) th/mm3 Eos # (Auto) (0.0-0.4) th/mm3 Baso # (Auto) (0.0-0.2) th/mm3 WBC Differential Diff Scan Seg Neuts % (Manual) (16-70) % Band Neuts % (Manual) (0-6) % Lymphocytes % (Manual) (9-44) % Monocytes % (Manual) (0-8) % Abs Neuts (Manual) (1.8-7.7) th/mm3 Differential Comment Platelet Estimate (Normal) Platelet Morphology (Normal) RBC Morphology (Normal) PT (9.8-11.6) sec INR Ratio APTT 86.3 H 27.3 D (24.3-30.1) sec Puncture Site Patient Temperature O2 Saturation (90-100) % ABG pH (7.380-7.420) ABG pCO2 (38-42) mmHg ABG pO2 (61-120) mmHg ABG HCO3 (22-26) mmol/L ABG O2 Content (12.0-20.0) Vol % ABG Base Excess (-2-2) mmol/L ABG Methemoglobin (0-2) % Sean Test Hemoglobin (12.0-16.0) G/DL Carboxyhemoglobin (0-4) % Inspired O2 % Critical Value Sodium (136-145) meq/L Potassium 3.5 D (3.5-5.1) meq/L Chloride (98-107) meq/L Carbon Dioxide (21.0-32.0) meq/L Anion Gap (5-15) meq/L BUN (7-18) mg/dL Creatinine (0.60-1.30) mg/dL Estimated GFR (>89) mL/min Random Glucose (74-106) mg/dL Calcium (8.5-10.1) mg/dL Prot Corrected Calcium (8.5-10.1) mg/dL Phosphorus (2.5-4.9) mg/dL Magnesium (1.5-2.5) mg/dL Total Bilirubin (0.2-1.0) mg/dL AST (15-37) U/L ALT (12-78) U/L Alkaline Phosphatase (45-117) U/L Troponin I (0.02-0.05) ng/mL Total Protein (6.4-8.2) g/dL Albumin (3.4-5.0) g/dL Lipase (73-393) U/L TSH (0.358-3.740) uIU/mL Nasal Screen MRSA (PCR) (Negative) 04/28/18 04/28/18 04/29/18 Range/Units 11:39 11:39 20:05 WBC 7.1 (4.0-11.0) th/mm3 RBC 4.43 L (4.50-5.90) mil/mm3 Hgb 12.0 L (13.0-17.0) gm/dL Hct 37.4 L (39.0-51.0) % MCV 84.5 D (80.0-100.0) fL MCH 27.0 (27.0-34.0) pg MCHC 32.0 (32.0-36.0) % RDW 19.5 H (11.6-17.2) % Plt Count 142 L (150-450) th/mm3 MPV 8.1 (7.0-11.0) fL Prelim Diff (Auto) Neut % (Auto) (16.0-70.0) % Lymph % (Auto) (9.0-44.0) % Hale % (Auto) (0.0-8.0) % Eos % (Auto) (0.0-4.0) % Baso % (Auto) (0.0-2.0) % Neut # (Auto) (1.8-7.7) th/mm3 Lymph # (Auto) (1.0-4.8) th/mm3 Hale # (Auto) (0.0-0.9) th/mm3 Eos # (Auto) (0.0-0.4) th/mm3 Baso # (Auto) (0.0-0.2) th/mm3 WBC Differential Diff Scan Seg Neuts % (Manual) (16-70) % Band Neuts % (Manual) (0-6) % Lymphocytes % (Manual) (9-44) % Monocytes % (Manual) (0-8) % Abs Neuts (Manual) (1.8-7.7) th/mm3 Differential Comment Platelet Estimate (Normal) Platelet Morphology (Normal) RBC Morphology (Normal) PT (9.8-11.6) sec INR Ratio APTT (24.3-30.1) sec Puncture Site Patient Temperature O2 Saturation (90-100) % ABG pH (7.380-7.420) ABG pCO2 (38-42) mmHg ABG pO2 (61-120) mmHg ABG HCO3 (22-26) mmol/L ABG O2 Content (12.0-20.0) Vol % ABG Base Excess (-2-2) mmol/L ABG Methemoglobin (0-2) % Sean Test Hemoglobin (12.0-16.0) G/DL Carboxyhemoglobin (0-4) % Inspired O2 % Critical Value Sodium 147 H 140 (136-145) meq/L Potassium 3.4 L 3.4 L (3.5-5.1) meq/L Chloride 111 H 104 (98-107) meq/L Carbon Dioxide 27.1 27.1 (21.0-32.0) meq/L Anion Gap 9 9 (5-15) meq/L BUN 9 7 (7-18) mg/dL Creatinine 0.74 0.54 L (0.60-1.30) mg/dL Estimated GFR Greater than 89 Greater than 89 (>89) mL/min Random Glucose 100 100 (74-106) mg/dL Calcium 8.1 L 7.4 L* (8.5-10.1) mg/dL Prot Corrected Calcium 8.6 (8.5-10.1) mg/dL Phosphorus (2.5-4.9) mg/dL Magnesium 1.7 (1.5-2.5) mg/dL Total Bilirubin (0.2-1.0) mg/dL AST (15-37) U/L ALT (12-78) U/L Alkaline Phosphatase (45-117) U/L Troponin I (0.02-0.05) ng/mL Total Protein 4.9 L D (6.4-8.2) g/dL Albumin (3.4-5.0) g/dL Lipase (73-393) U/L TSH (0.358-3.740) uIU/mL Nasal Screen MRSA (PCR) (Negative) 04/30/18 04/30/18 04/30/18 Range/Units 05:21 05:21 11:21 WBC 8.5 (4.0-11.0) th/mm3 RBC 4.69 (4.50-5.90) mil/mm3 Hgb 12.7 L (13.0-17.0) gm/dL Hct 38.2 L (39.0-51.0) % MCV 81.6 (80.0-100.0) fL MCH 27.1 (27.0-34.0) pg MCHC 33.2 (32.0-36.0) % RDW 19.1 H (11.6-17.2) % Plt Count 118 L (150-450) th/mm3 MPV 8.1 (7.0-11.0) fL Prelim Diff (Auto) Slide review pending Neut % (Auto) 77.8 H (16.0-70.0) % Lymph % (Auto) 17.5 (9.0-44.0) % Hale % (Auto) 4.4 (0.0-8.0) % Eos % (Auto) 0.2 (0.0-4.0) % Baso % (Auto) 0.1 (0.0-2.0) % Neut # (Auto) 6.6 (1.8-7.7) th/mm3 Lymph # (Auto) 1.5 (1.0-4.8) th/mm3 Hale # (Auto) 0.4 (0.0-0.9) th/mm3 Eos # (Auto) 0.0 (0.0-0.4) th/mm3 Baso # (Auto) 0.0 (0.0-0.2) th/mm3 WBC Differential Manual diff final Diff Scan Seg Neuts % (Manual) 78 H (16-70) % Band Neuts % (Manual) 7 H (0-6) % Lymphocytes % (Manual) 15 (9-44) % Monocytes % (Manual) (0-8) % Abs Neuts (Manual) 7.2 (1.8-7.7) th/mm3 Differential Comment . Platelet Estimate Low L (Normal) Platelet Morphology Normal (Normal) RBC Morphology Normal (Normal) PT 12.9 H (9.8-11.6) sec INR 1.3 Ratio APTT (24.3-30.1) sec Puncture Site Patient Temperature O2 Saturation (90-100) % ABG pH (7.380-7.420) ABG pCO2 (38-42) mmHg ABG pO2 (61-120) mmHg ABG HCO3 (22-26) mmol/L ABG O2 Content (12.0-20.0) Vol % ABG Base Excess (-2-2) mmol/L ABG Methemoglobin (0-2) % Sean Test Hemoglobin (12.0-16.0) G/DL Carboxyhemoglobin (0-4) % Inspired O2 % Critical Value Sodium 136 (136-145) meq/L Potassium 4.3 D (3.5-5.1) meq/L Chloride 105 (98-107) meq/L Carbon Dioxide 21.2 (21.0-32.0) meq/L Anion Gap 10 (5-15) meq/L BUN 7 (7-18) mg/dL Creatinine 0.51 L (0.60-1.30) mg/dL Estimated GFR Greater than 89 (>89) mL/min Random Glucose 82 (74-106) mg/dL Calcium 7.4 L* (8.5-10.1) mg/dL Prot Corrected Calcium (8.5-10.1) mg/dL Phosphorus 1.0 L (2.5-4.9) mg/dL Magnesium 1.8 (1.5-2.5) mg/dL Total Bilirubin (0.2-1.0) mg/dL AST (15-37) U/L ALT (12-78) U/L Alkaline Phosphatase (45-117) U/L Troponin I (0.02-0.05) ng/mL Total Protein (6.4-8.2) g/dL Albumin 2.0 L (3.4-5.0) g/dL Lipase (73-393) U/L TSH (0.358-3.740) uIU/mL Nasal Screen MRSA (PCR) (Negative) 05/01/18 05/01/18 Range/Units 05:35 05:35 WBC 8.8 (4.0-11.0) th/mm3 RBC 4.63 (4.50-5.90) mil/mm3 Hgb 12.4 L (13.0-17.0) gm/dL Hct 37.8 L (39.0-51.0) % MCV 81.7 (80.0-100.0) fL MCH 26.7 L (27.0-34.0) pg MCHC 32.7 (32.0-36.0) % RDW 18.5 H (11.6-17.2) % Plt Count 96 L (150-450) th/mm3 MPV 8.9 (7.0-11.0) fL Prelim Diff (Auto) Slide review pending Neut % (Auto) 79.1 H (16.0-70.0) % Lymph % (Auto) 17.2 (9.0-44.0) % Hale % (Auto) 3.4 (0.0-8.0) % Eos % (Auto) 0.2 (0.0-4.0) % Baso % (Auto) 0.1 (0.0-2.0) % Neut # (Auto) 7.0 (1.8-7.7) th/mm3 Lymph # (Auto) 1.5 (1.0-4.8) th/mm3 Hale # (Auto) 0.3 (0.0-0.9) th/mm3 Eos # (Auto) 0.0 (0.0-0.4) th/mm3 Baso # (Auto) 0.0 (0.0-0.2) th/mm3 WBC Differential . Diff Scan Auto diff confirmed Seg Neuts % (Manual) (16-70) % Band Neuts % (Manual) (0-6) % Lymphocytes % (Manual) (9-44) % Monocytes % (Manual) (0-8) % Abs Neuts (Manual) (1.8-7.7) th/mm3 Differential Comment . Platelet Estimate Low L (Normal) Platelet Morphology Normal (Normal) RBC Morphology (Normal) PT (9.8-11.6) sec INR Ratio APTT (24.3-30.1) sec Puncture Site Patient Temperature O2 Saturation (90-100) % ABG pH (7.380-7.420) ABG pCO2 (38-42) mmHg ABG pO2 (61-120) mmHg ABG HCO3 (22-26) mmol/L ABG O2 Content (12.0-20.0) Vol % ABG Base Excess (-2-2) mmol/L ABG Methemoglobin (0-2) % Sean Test Hemoglobin (12.0-16.0) G/DL Carboxyhemoglobin (0-4) % Inspired O2 % Critical Value Sodium 139 (136-145) meq/L Potassium 3.7 (3.5-5.1) meq/L Chloride 105 (98-107) meq/L Carbon Dioxide 23.6 (21.0-32.0) meq/L Anion Gap 10 (5-15) meq/L BUN 9 (7-18) mg/dL Creatinine 0.46 L (0.60-1.30) mg/dL Estimated GFR Greater than 89 (>89) mL/min Random Glucose 83 (74-106) mg/dL Calcium 7.3 L* (8.5-10.1) mg/dL Prot Corrected Calcium (8.5-10.1) mg/dL Phosphorus 1.5 L (2.5-4.9) mg/dL Magnesium 1.8 (1.5-2.5) mg/dL Total Bilirubin (0.2-1.0) mg/dL AST (15-37) U/L ALT (12-78) U/L Alkaline Phosphatase (45-117) U/L Troponin I (0.02-0.05) ng/mL Total Protein (6.4-8.2) g/dL Albumin 2.2 L (3.4-5.0) g/dL Lipase (73-393) U/L TSH (0.358-3.740) uIU/mL Nasal Screen MRSA (PCR) (Negative) Imaging Data Radiologist's impression: Abdomen X-Ray 04/25/18 20:59 CONCLUSION: No acute findings. Chest X-Ray 04/25/18 20:59 CONCLUSION: No active disease. Previous right eighth rib fracture. Chest CTA 04/26/18 00:00 CONCLUSION: 1. No evidence of pulmonary embolism. 2. Minimal scattered patchy densities are noted within the lower and upper lobes consistent with possible pneumonia. Debris is noted within the right mainstem bronchus and extending into the right upper and lower lobe bronchi. 3. The diffusely dilated esophagus which contains debris raising the possibility of achalasia or achalasia-like process. Outpatient evaluation of this finding could be performed if requested. 4. Coronary artery calcifications. 5. Calcified nonobstructing left renal calculi. Chest X-Ray 04/26/18 08:05 CONCLUSION: Stable chest no acute disease Head CT 04/26/18 11:11 CONCLUSION: 1. 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 2. Denies sinus air-fluid level. . Pulmonary Perfusion Imaging 04/26/18 11:11 CONCLUSION: 1. Intermediate probability for pulmonary embolus on the left. Venous Doppler Study 04/26/18 11:11 CONCLUSION: 1. The study is negative for bilateral lower extremity deep venous thrombosis. Chest X-Ray 04/29/18 06:00 CONCLUSION: Consolidation or atelectasis in the right medial base. Persistent focal density/possible mass in the lateral right lower lung. Chest X-Ray 04/30/18 00:00 CONCLUSION: Right lower lobe pneumonia. Discharge Plan Discharge Disposition Patient Disposition: 30 Still Patient Discharge Condition Condition: Serious Discharge Details Diagnosis: Hypoxia Physicians Team ED Provider: Jessica Prado ED Midlevel Provider: Miladis Araya Primary Care Provider: UNKNOWN, Attending Provider: Abhijeet Peace Other Providers: Rashad Solorzano ; Santos Mccloud ; [facility],Agency Status ED Status: Left Department Discharge Information Discharge Date/Time: 04/26/18 15:42
[2018-04-26 08:24] LABS: ABG Base Excess 4.4 mmol/L (-2-2); ABG PCO2 43 mmHg (38-42); ABG PO2 45 mmHg (61-120)
[2018-04-26 08:38] LABS: Baso % (Auto) 0.2 % (0.0-2.0); Eos % (Auto) 0.5 % (0.0-4.0); Hematocrit 43.2 % (39.0-51.0); Hemoglobin 14.2 gm/dL (13.0-17.0); Lymph # (Auto) 1.2 th/mm3 (1.0-4.8); Lymph % (Auto) 18.2 % (9.0-44.0); Mean Corpuscular HGB Conc 32.9 % (32.0-36.0); Mean Corpuscular Hemoglobin 27.3 pg (27.0-34.0); Mean Corpuscular Volume 83.1 fL (80.0-100.0); Mean Platelet Volume 7.6 fL (7.0-11.0); Mono # (Auto) 0.5 th/mm3 (0.0-0.9); Mono % (Auto) 7.4 % (0.0-8.0); Neut # (Auto) 4.8 th/mm3 (1.8-7.7); Neut % (Auto) 73.7 % (16.0-70.0); Platelet Count 164 th/mm3 (150-450); Red Cell Distribution Width 19.2 % (11.6-17.2); White Blood Count 6.5 th/mm3 (4.0-11.0)
[2018-04-26 08:52] LABS: Alanine Aminotransferase 17 U/L (12-78); Albumin 2.6 g/dL (3.4-5.0); Alkaline Phosphatase 80 U/L (45-117); Anion Gap 8 meq/L (5-15); Aspartate Aminotransferase 19 U/L (15-37); Blood Urea Nitrogen 10 mg/dL (7-18); Carbon Dioxide 28.4 meq/L (21.0-32.0); Chloride 107 meq/L (98-107); Glomerular Filtration Rate Greater Than 89 mL/min (>89); Glucose,Random 75 mg/dL (74-106); Potassium 3.7 meq/L (3.5-5.1); Sodium 143 meq/L (136-145); Total Protein 6.1 g/dL (6.4-8.2)
--- NOTE | 2018-04-26 08:54 | XR ---
EXAM DATE: 04/26/2018 8:05 AM EDT AGE/SEX: 57 years / Male INDICATIONS: Shortness of breath. CLINICAL DATA: This is the patient's initial encounter. Patient reports that signs and symptoms have been present for 1 day and indicates a pain score of Nonresponsive. MEDICAL/SURGICAL HISTORY: Non-responsive. Non-responsive. [place] [facility] [place]. . FINDINGS: Lungs are grossly clear. No pleural effusion evident. Cardiac contours are stable and satisfactory. H ealing posterior right rib fracture. CONCLUSION: Stable chest no acute disease Electronically signed by: Shawn Newman MD 04/26/2018 8:52 AM EDT
[2018-04-26 09:35] LABS: Lymphocytes 13 % (9-44); Monocytes 7 % (0-8)
[2018-04-26 09:36] LABS: Platelet Estimate Normal (Normal); Platelet Morphology Normal (Normal)
[2018-04-26] MEDS ORDERED: Heparin Drip 25,000 UNIT/250 ML BAG IV.CONT PRN (11:11)
[2018-04-26] MEDS ORDERED: Heparin 10,000 UNITS/10 ML Vial (for IV use) IV.PUSH STA (11:11)
[2018-04-26 11:39] LABS: INR 1.1 Ratio
--- NOTE | 2018-04-26 12:18 | US ---
EXAM DATE: 04/26/2018 11:11 AM EDT AGE/SEX: 57 years / Male INDICATIONS: Abdominal pain. Vomiting. CLINICAL DATA: This is the patient's initial encounter. Patient reports that signs and symptoms have been present for 2 days and indicates a pain score of 0/10. MEDICAL/SURGICAL HISTORY: . Speech impairment. Stroke. Hernia. None. COMPARISON: No prior exams available for comparison. TECHNIQUE: Venous ultrasound of both lower extremities was performed from the inguinal ligament to t he proximal calf. Real-time, color Doppler and spectral tracing, compression and augmentation techni ques were used. FINDINGS: Right Leg: Normal compression of the deep venous system from the inguinal region to the proximal aneudy f. No echogenic clot is seen. Normal response of the venous system to augmentation and respiration. Left Leg: Normal compression of the deep venous system from the inguinal region to the proximal calf . No echogenic clot is seen. Normal response of the venous system to augmentation and respiration. Other: None. CONCLUSION: 1. The study is negative for bilateral lower extremity deep venous thrombosis. Electronically signed by: Asa Lazcano MD 04/26/2018 12:17 PM EDT
--- NOTE | 2018-04-26 12:26 | CT ---
EXAM DATE: 04/26/2018 11:52 AM EDT AGE/SEX: 57 years / Male INDICATIONS: Altered mental status. CLINICAL DATA: This is the patient's initial encounter. Patient reports that signs and symptoms have been present for 1 day and indicates a pain score of 0/10. MEDICAL/SURGICAL HISTORY: Stroke. Hiatal hernia. None. RADIATION DOSE: 37.11 CTDI (mGy) [place] [facility] [place]. . TECHNIQUE: CT of the head without contrast. Using automated exposure control and adjustment of the mA and/or kV according to patient size, radiation dose was kept as low as reasonably achievable to ob tain optimal diagnostic quality images. DICOM format image data is available electronically for revi ew and comparison. FINDINGS: There is mild diffuse prominence of the CSF spaces. Encephalomalacia in the left frontal region from remote infarct with ex vacuo dilatation of left lateral ventricle, frontal horn noted. In addition th ere is a right occipital infarct with encephalomalacia and ex vacuo dilatation of the posterior horn. Moderate decreased attenuation of the left periventricular white matter and right posterior perivent ricular white matter noted most characteristic of chronic microvascular ischemic disease and scoliosi s. There are no fractures. Air-fluid level in the sphenoid sinus on the right. CONCLUSION: 1. 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 2. Denies sinus air-fluid level. . Electronically signed by: Asa Lazcano MD 04/26/2018 12:25 PM EDT
--- NOTE | 2018-04-26 13:51 | P.HPIM ---
History of Present Illness Primary Care Physician: UNKNOWN History of Present Illness: This patient is a 57-year-old male with a diagnosis of gastroesophageal reflux disease, history of ischemic CVA with right-sided hemiparesis. The patient presented to our emergency department today accompanied by his significant other who says that over the past 1 month the patient has had some dysphagia, and has been coughing over the past week. He has an extensive tobacco smoking history and has been smoking nearly 2 packs of cigarettes per day since the age of 18. He has not been able to tolerate a p.o. diet over the past week and his significant other was concerned and so she brought him into the emergency department today. In the ER he was found to be hypoxic and coughing. At baseline the patient can say yes or no otherwise he does not communicate very well. As per the emergency department physician notes when EMS arrived to his house there was feces on the patient's bed, blankets, and bugs all over the patient as well as as a significant other. She denies any fevers or chills, no chest pain, no diarrhea. Past medical history ischemic CVA, gastroesophageal reflux disease Past surgical history none Family history noncontributory Social history patient has an extensive history of tobacco smoking 2 packs/day since the age of 18, denies history of alcohol abuse, denies any history of drug use Inpatient Certification: I certify that the inpatient services were ordered in accordance with Medicare regulations governing the order. 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 / EMT - Medical History Medical History: Medical History (Last Reviewed 04/25/18 @ 23:18 by MARI Roberts) Hernia History of stroke No significant past surgical history Smoker Speech impairment - Tobacco History Second Hand Smoke Exposure: No Smoking Status: Unknown if ever smoked Tobacco Type: Cigarettes - Alcohol History How Often Do You Have a Drink Containing Alcohol: Never - Substance Use History Substance History: No History of Abuse - Travel History Recent Travel in the [place] Within the Last 8 Weeks: No Recent Travel Out of the Country Within the Last 8 Weeks: No - Immunization History Tetanus Immunization: Unsure Medications and Allergies Active Medications: Active Medications Albuterol (Duoneb Neb (Doretha)) 1 ampul NEB Q4HR NEB DORETHA Aspirin (Aspirin Supp) 300 mg RECTAL DAILY DORETHA Heparin Sodium/Dextrose (Heparin/D5w 25,000 U/250 Ml) 25,000 unit in 250 mls @ 0 mls/hr IV.CONT TITRATE PRN; Protocol PRN Reason: Per Protocol Last Admin: 04/26/18 12:47 Dose: 1,200 units/hr, 12 mls/hr Dextrose/Sodium Chloride (D5w/Normal Saline Inj) 1,000 mls @ 84 mls/hr IV.CONT .[id number] DORETHA Azithromycin 250 mg/ Sodium (Chloride) 250 mls @ 250 mls/hr IV.SIG Q24H DORETHA Methylprednisolone Sodium Succinate (Solumedrol Inj) 60 mg IV.PUSH Q8H DORETHA Pantoprazole Sodium (Protonix Inj) 40 mg IV.PUSH Q24H DORETHA Sodium Chloride (Ns Flush) 2 ml IV.FLUSH PRN PRN PRN Reason: FLUSH AFTER USING IV ACCESS Allergies Allergy/AdvReac Type Severity Reaction Status Date / Time No Known Allergies Allergy Verified 04/25/18 20:36 Home Medications Medication Instructions Recorded Confirmed Type Unable to Obtain Home Meds 04/26/18 04/26/18 History Exam Vital signs: Vital Signs 04/25/18 20:36 04/25/18 23:31 04/26/18 02:04 Temperature 98.0 F Pulse Rate 83 88 90 Respiratory Rate 18 18 Blood Pressure 136/93 H 148/92 H 135/88 Pulse Oximetry 97 96 95 04/26/18 06:18 04/26/18 07:15 04/26/18 08:00 Temperature Pulse Rate 92 H 90 Respiratory Rate 20 18 16 Blood Pressure 136/91 H 144/72 H Pulse Oximetry 95 87 L 76 L 04/26/18 08:05 04/26/18 08:25 04/26/18 11:50 Temperature Pulse Rate 101 H Respiratory Rate 16 Blood Pressure 114/78 Pulse Oximetry 90 L 98 93 L Intake & Output 04/25/18 04/26/18 04/26/18 18:59 06:59 18:59 Intake Total 1000 / 1000 Balance 1000 / 1000 Weight 68.039 kg Intake: IV 1000 / 1000 NS Inj 1,000 ML @ Wide Open IV. 1000 / 1000 SIG BOLUS ONE Rx#:[id number] Narrative: General patient appears anxious HEENT extraocular movements are intact, clear oropharyngeal mucosa, no JVD Cardiovascular S1-S2 audible, RRR, no murmurs rubs or gallops Respiratory minimal wheezing auscultated bilaterally Abdomen soft, nontender, nondistended, normal bowel sounds Extremities no edema 2+ distal pulses in bilateral upper and lower extremities Neuro patient is a phasic, he responds to yes and no. 3 out of 5 strength of the right upper and right lower extremity. Sensation appears to be intact bilaterally Results - Labs CBC & Chem 7: 04/26/18 08:15 04/26/18 08:15 Labs: Short CBC 04/25/18 04/26/18 Range/Units 21:16 08:15 WBC 8.0 6.5 (4.0-11.0) th/mm3 Hgb 14.6 14.2 (13.0-17.0) gm/dL Hct 44.4 43.2 (39.0-51.0) % Plt Count 176 164 (150-450) th/mm3 BMP 04/25/18 04/26/18 21:16 08:15 Sodium 141 143 Potassium 5.3 H 3.7 D Chloride 100 107 Carbon Dioxide 32.2 H 28.4 BUN 12 10 Creatinine 0.77 0.53 L Calcium 8.9 8.0 L D Liver Function 04/25/18 04/26/18 Range/Units 21:16 08:15 Total Bilirubin 2.3 H 1.7 H (0.2-1.0) mg/dL AST 15 19 (15-37) U/L ALT 20 17 (12-78) U/L Alkaline Phosphatase 91 80 (45-117) U/L Albumin 2.9 L 2.6 L (3.4-5.0) g/dL - Imaging Impressions Abdomen X-Ray 04/25/18 20:59 CONCLUSION: No acute findings. Chest X-Ray 04/25/18 20:59 CONCLUSION: No active disease. Previous right eighth rib fracture. Chest X-Ray 04/26/18 08:05 CONCLUSION: Stable chest no acute disease Head CT 04/26/18 11:11 CONCLUSION: 1. 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 2. Denies sinus air-fluid level. . Venous Doppler Study 04/26/18 11:11 CONCLUSION: 1. The study is negative for bilateral lower extremity deep venous thrombosis. Caprini VTE Risk Assessment Caprini VTE Risk Assessment: Moderate/High Risk (score >= 2) (Patient is currently on heparin drip) Caprini Risk Assessment Model: Point Value = 1 Point Value = 2 Point Value = 3 Point Value = 5 Age 41-60 Minor surgery BMI > 25 kg/m2 Swollen legs Varicose veins or History of unexplained or recurrent spontaneous Oral contraceptives or hormone replacement Sepsis (< 1 month) Serious lung disease, including pneumonia (< 1 month) Abnormal pulmonary function Acute myocardial infarction Congestive heart failure (< 1 month) History of inflammatory bowel disease Medical patient at bed rest Age 61-74 Arthroscopic surgery Major open surgery (> 45 min) Laparoscopic surgery (> 45 min) Malignancy Confined to bed (> 72 hours) Immobilizing plaster cast Central venous access Age >= 75 History of VTE Family history of VTE Factor V Leiden Prothrombin [id number] Lupus anticoagulant Anticardiolipin antibodies Elevated serum homocysteine Heparin-induced thrombocytopenia Other congenital or acquired thrombophilia Stroke (< 1 month) Elective arthroplasty Hip, pelvis, or leg fracture Acute spinal cord injury (< 1 month) Prophylaxis Regimen: Total Risk Factor Score Risk Level Prophylaxis Regimen 0-1 Low Early ambulation 2 Moderate Order ONE of the following: *Sequential Compression Device (SCD) *Heparin 5000 units SQ BID 3-4 Higher Order ONE of the following medications: *Heparin 5000 units SQ TID *Enoxaparin/Lovenox 40 mg SQ daily (WT < 150 kg, CrCl > 30 mL/min) *Enoxaparin/Lovenox 30 mg SQ daily (WT < 150 kg, CrCl > 10-29 mL/min) *Enoxaparin/Lovenox 30 mg SQ BID (WT < 150 kg, CrCl > 30 mL/min) AND/OR *Sequential Compression Device (SCD) 5 or more Highest Order ONE of the following medications: *Heparin 5000 units SQ TID (Preferred with Epidurals) *Enoxaparin/Lovenox 40 mg SQ daily (WT < 150 kg, CrCl > 30 mL/min) *Enoxaparin/Lovenox 30 mg SQ daily (WT < 150 kg, CrCl > 10-29 mL/min) *Enoxaparin/Lovenox 30 mg SQ BID (WT < 150 kg, CrCl > 30 mL/min) AND *Sequential Compression Device (SCD) Assessment and Plan - Plan This patient is a 57-year-old male with a diagnosis of gastroesophageal reflux disease, history of ischemic CVA with right-sided hemiparesis. The patient presented to our emergency department today accompanied by his significant other who says that over the past 1 month the patient has had some dysphagia, and has been coughing over the past week. He has an extensive tobacco smoking history and has been smoking nearly 2 packs of cigarettes per day since the age of 18. He has not been able to tolerate a p.o. diet over the past week and his significant other was concerned and so she brought him into the emergency department today. In the ER he was found to be hypoxic and coughing. At baseline the patient can say yes or no otherwise he does not communicate very well. As per the emergency department physician notes when EMS arrived to his house there was feces on the patient's bed, blankets, and bugs all over the patient as well as as a significant other. She denies any fevers or chills, no chest pain, no diarrhea. 1. Acute hypoxic hypercapnic respiratory failure secondary to COPD exacerbation 2. Concern for pulmonary embolus 3. Tobacco abuse The patient presented with the symptoms mentioned above. On my physical examination the patient does have some wheezing on auscultation bilaterally. On pulse oximetry the patient was hypoxic. An ABG was done which confirmed hypoxia. He has been placed on supplemental oxygen. He will be started on Solu -Medrol and IV antibiotics. DuoNeb treatments will be given [id number]. In the emergency department he was initially evaluated by the emergency department physician who believes the patient may have a pulmonary embolus. Initially they attempted to get vascular access in order to do a CTA however it was unsuccessful. He has been started on a heparin drip and a VQ scan has been ordered. We will follow-up on the results of the VQ scan. The patient and his were advised that he needs to stop smoking. 4. History of ischemic CVA Continue aspirin per rectal as the patient is currently n.p.o. Repeat CT scan of the head today does not show any new acute findings. 5. Dysphagia When given liquids the patient had an episode of choking. According to the patient significant other he has been having this issue while at home over the past couple of weeks. He will be kept n.p.o. for now a swallow evaluation has been ordered. DVT prophylaxis: patient is currently on heparin drip
[2018-04-26] MEDS ORDERED: Azithromycin Inj 250 MG in Sodium Chlor 0.9% Inj 250 ML IV.SIG SCH (14:00)
--- NOTE | 2018-04-26 14:18 | NM ---
EXAM DATE: 04/26/2018 1:18 PM EDT AGE/SEX: 57 years / Male INDICATIONS: Short of breath. CLINICAL DATA: This is the patient's initial encounter. Patient reports that signs and symptoms have been present for 1 day and indicates a pain score of 3/10. MEDICAL/SURGICAL HISTORY: Stroke. Inguinal hernia repair. COMPARISON: [facility], CHEST 1V SINGLE AP, 04/26/2018. . DOSE: 1.1 mCi Tc99m DTPA aerosol 8.6 mCi Tc99m MAA IV TECHNIQUE: Following five minutes of tidal breathing of DTPA aerosol, planar images of the lungs wer e performed in eight projections. The patient was then injected with MAA, and eight-view perfusion s can was performed. FINDINGS: There is a homogeneous pattern of aerosol delivery to the periphery of both lungs. No focal ventilat ory defects are seen. The perfusion lung scan demonstrates decreased perfusion at the costophrenic angle on the left side a nd near the left midlung peripherally. CONCLUSION: 1. Intermediate probability for pulmonary embolus on the left. Electronically signed by: Alfredo Liao MD 04/26/2018 2:16 PM EDT
[2018-04-26] MEDS: Azithromycin Inj 250 MG in Sodium Chlor 0.9% Inj 250 ML IV.SIG SCH (14:38)
[2018-04-26] MEDS: Dextrose 5%/NaCl 0.9% Inj 1,000 ML IV.CONT SCH (14:38)
[2018-04-26] MEDS: MethylPREDNISolone Sod Succinate Inj 125 MG/2 ML Vial IV.PUSH SCH ×2 (14:38→21:37)
--- NOTE | 2018-04-26 21:05 | CT ---
EXAM DATE: 04/26/2018 8:05 PM EDT AGE/SEX: 57 years / Male INDICATIONS: Shortness of breath. CLINICAL DATA: This is the patient's initial encounter. Patient reports that signs and symptoms have been present for 1 day and indicates a pain score of 0/10. MEDICAL/SURGICAL HISTORY: Hiatal hernia. Stroke. None. RADIATION DOSE: 8.98 CTDI (mGy) COMPARISON: [facility] [place] PELVIS W/O CONTRAST, 03/24/2018. . TECHNIQUE: Volumetric scanning was performed using a multi-row detector CT scanner during bolus infu thom of 74 ml Omnipaque 350 (iohexol) nonionic water-soluble contrast as a single exam dose. The ike a was post processed with a variety of visualization algorithms including full volume maximum intensi ty projection and sliding thin slab reformation. Using automated exposure control and adjustment of t he mA and/or kV according to patient size, radiation dose was kept as low as reasonably achievable to obtain optimal diagnostic quality images. DICOM format image data is available electronically for r eview and comparison. FINDINGS: Pulmonary Arteries: No filling defects are seen in the pulmonary arteries out to the subsegmental ve ssels. The left and right pulmonary arteries are normal in diameter. Lung: Minimal scattered patchy densities are noted within the lower and upper lobes consistent with possible pneumonia. Debris is noted within the right mainstem bronchus and extending into the right u pper and lower lobe bronchi. Effusion: None. Mediastinum: No evidence of mediastinal or hilar adenopathy. The entire esophagus is dilated and con tains debris raising the possibility of achalasia or achalasia-like process. Outpatient evaluation of this finding could be performed if requested. Coronary artery calcifications are noted. Other: The axilla is unremarkable. Calcified nonobstructing left renal calculi are noted. Degenerati ve changes are noted throughout the thoracic spine. CONCLUSION: 1. No evidence of pulmonary embolism. 2. Minimal scattered patchy densities are noted within the lower and upper lobes consistent with pos sible pneumonia. Debris is noted within the right mainstem bronchus and extending into the right uppe r and lower lobe bronchi. 3. The diffusely dilated esophagus which contains debris raising the possibility of achalasia or ach alasia-like process. Outpatient evaluation of this finding could be performed if requested. 4. Coronary artery calcifications. 5. Calcified nonobstructing left renal calculi. Electronically signed by: Deepak Sands MD 04/26/2018 9:04 PM EDT
[2018-04-26] MEDS: Pantoprazole Inj 40 MG Vial IV.PUSH SCH (21:37)
[2018-04-27 04:31] LABS: Eos % (Auto) 0.1 % (0.0-4.0); Hematocrit 32.9 % (39.0-51.0); Hemoglobin 10.9 gm/dL (13.0-17.0); Lymph # (Auto) 0.6 th/mm3 (1.0-4.8); Lymph % (Auto) 13.9 % (9.0-44.0); Mean Corpuscular HGB Conc 33.2 % (32.0-36.0); Mean Corpuscular Hemoglobin 26.9 pg (27.0-34.0); Mean Corpuscular Volume 80.9 fL (80.0-100.0); Mean Platelet Volume 7.5 fL (7.0-11.0); Mono # (Auto) 0.1 th/mm3 (0.0-0.9); Mono % (Auto) 2.3 % (0.0-8.0); Neut # (Auto) 3.4 th/mm3 (1.8-7.7); Neut % (Auto) 83.7 % (16.0-70.0); Platelet Count 150 th/mm3 (150-450); Red Blood Count 4.06 mil/mm3 (4.50-5.90); Red Cell Distribution Width 18.9 % (11.6-17.2); White Blood Count 4.1 th/mm3 (4.0-11.0)
[2018-04-27 04:50] LABS: Anion Gap 7 meq/L (5-15); Blood Urea Nitrogen 8 mg/dL (7-18); Calcium 7.8 mg/dL (8.5-10.1); Carbon Dioxide 30.5 meq/L (21.0-32.0); Chloride 109 meq/L (98-107); Glomerular Filtration Rate Greater Than 89 mL/min (>89); Glucose,Random 151 mg/dL (74-106); Sodium 146 meq/L (136-145)
[2018-04-27 04:55] LABS: Potassium 2.6 meq/L (3.5-5.1)
[2018-04-27] MEDS: MethylPREDNISolone Sod Succinate Inj 125 MG/2 ML Vial IV.PUSH SCH ×2 (05:48→15:23)
[2018-04-27] MEDS: Dextrose 5%/NaCl 0.9% Inj 1,000 ML IV.CONT SCH ×2 (05:49→14:55)
[2018-04-27] MEDS: Potassium Chlor 20 mEq Premix 20 MEQ/100 ML PIGGYBACK IV.SIG SCH ×4 (06:11→14:55)
[2018-04-27] MEDS ORDERED: Aspirin 300 MG Supp RECTAL SCH (09:00)
[2018-04-27] MEDS: Aspirin 300 MG Supp RECTAL SCH (09:02)
[2018-04-27] MEDS: Azithromycin Inj 250 MG in Sodium Chlor 0.9% Inj 250 ML IV.SIG SCH (15:24)
--- NOTE | 2018-04-27 15:35 | P.PNIM ---
Subjective Interval history: Patient is laying in bed comfortably with nasal cannula in place. He responds yes and no to my questions. He is coughing occasionally on my examination today. Physical Exam Vital signs: Vital Signs 04/26/18 15:58 04/26/18 16:00 04/26/18 19:57 Temperature 98.1 F Pulse Rate 78 79 66 Respiratory Rate 18 15 14 Blood Pressure 137/86 Pulse Oximetry 100 100 04/26/18 20:00 04/26/18 21:00 04/26/18 22:00 Temperature 98.2 F Pulse Rate 67 80 78 Respiratory Rate 16 16 Blood Pressure 136/80 124/83 Pulse Oximetry 100 98 100 04/26/18 23:00 04/27/18 00:00 04/27/18 01:00 Temperature 98 F Pulse Rate 66 64 60 Respiratory Rate 16 16 16 Blood Pressure 145/82 H Pulse Oximetry 95 100 96 04/27/18 02:00 04/27/18 03:00 04/27/18 04:00 Temperature 98.1 F Pulse Rate 53 L 59 L 59 L Respiratory Rate 16 16 16 Blood Pressure 161/74 H 146/78 H Pulse Oximetry 97 98 97 04/27/18 05:00 04/27/18 06:00 04/27/18 06:53 Temperature Pulse Rate 52 L 65 68 Respiratory Rate 16 16 23 Blood Pressure 141/88 H Pulse Oximetry 97 100 98 04/27/18 07:00 04/27/18 08:00 04/27/18 08:01 Temperature 98.3 F Pulse Rate 78 52 L 58 L Respiratory Rate 24 19 20 Blood Pressure 141/65 H 141/65 H Pulse Oximetry 100 100 100 04/27/18 09:00 04/27/18 09:11 04/27/18 10:00 Temperature Pulse Rate 62 85 54 L Respiratory Rate 20 18 Blood Pressure 127/75 123/75 Pulse Oximetry 100 100 100 04/27/18 11:00 04/27/18 12:00 04/27/18 13:00 Temperature Pulse Rate 60 62 64 Respiratory Rate 21 19 Blood Pressure 120/78 Pulse Oximetry 99 100 97 04/27/18 14:00 04/27/18 14:38 04/27/18 14:57 Temperature Pulse Rate 71 79 78 Respiratory Rate 24 28 H 22 Blood Pressure 110/67 121/78 Pulse Oximetry 93 L 89 L Intake & Output 04/26/18 04/27/18 04/27/18 18:59 06:59 18:59 Intake Total 250 / 250 1000 / 1000 1400 / 1400 Output Total 150 / 150 200 / 200 Balance 100 / 100 800 / 800 1400 / 1400 Weight 53.3 kg Intake: IV 250 / 250 1000 / 1000 1400 / 1400 D5W/Normal Saline Inj 1,000 ML 1000 / 1000 1000 / 1000 @ 84 mls/hr IV.CONT .[id number] [facility]ASO Rx#:[id number] Azithromycin Inj 250 MG In NS 250 / 250 Inj 250 ML @ 250 mls/hr IV.SIG Q24H [facility]ASO Rx#:[id number] KCl 20 mEq Premix Inj 20 meq In 300 / 300 100 ml @ 50 mls/hr IV.SIG Q2H [facility]ASO Rx#:[id number] Rocephin Inj 1,000 MG In NS Inj 100 / 100 100 ML @ 200 mls/hr IV.SIG Q24H [facility]ASO Rx#:[id number] Output: Urine 150 / 150 200 / 200 Other: # Voids 2 Narrative: General patient appears comfortable laying in bed. He answers yes and no to my questions. HEENT extraocular movements are intact, clear oropharyngeal mucosa, no JVD Cardiovascular S1-S2 audible, RRR, no murmurs rubs or gallops Respiratory coarseness bilaterally. No wheezing on my examination today. Abdomen soft, nontender, nondistended, normal bowel sounds Extremities no edema 2+ distal pulses in bilateral upper and lower extremities Neuro patient is a aphasic, he responds to yes and no. 3 out of 5 strength of the right upper and right lower extremity. Sensation appears to be intact bilaterally Results - Labs CBC & Chem 7: 04/27/18 03:37 04/27/18 03:37 Laboratory Results - last 24 hr 04/26/18 04/26/18 04/26/18 15:46 17:10 20:14 WBC RBC Hgb Hct MCV MCH MCHC RDW Plt Count MPV Neut % (Auto) Lymph % (Auto) Maury % (Auto) Eos % (Auto) Baso % (Auto) Neut # (Auto) Lymph # (Auto) Maury # (Auto) Eos # (Auto) Baso # (Auto) WBC Differential Differential Comment APTT 105.6 H* D 79.0 H D Sodium Potassium Chloride Carbon Dioxide Anion Gap BUN Creatinine Estimated GFR Random Glucose Calcium Magnesium Nasal Screen MRSA (PCR) Not detected 04/27/18 04/27/18 04/27/18 03:37 03:37 03:37 WBC 4.1 RBC 4.06 L Hgb 10.9 L D Hct 32.9 L MCV 80.9 MCH 26.9 L MCHC 33.2 RDW 18.9 H Plt Count 150 MPV 7.5 Neut % (Auto) 83.7 H Lymph % (Auto) 13.9 Maury % (Auto) 2.3 Eos % (Auto) 0.1 Baso % (Auto) 0.0 Neut # (Auto) 3.4 Lymph # (Auto) 0.6 L Maury # (Auto) 0.1 Eos # (Auto) 0.0 Baso # (Auto) 0.0 WBC Differential . Differential Comment Auto diff final APTT 86.3 H Sodium 146 H Potassium 2.6 L* D Chloride 109 H Carbon Dioxide 30.5 Anion Gap 7 BUN 8 Creatinine 0.50 L Estimated GFR Greater than 89 Random Glucose 151 H Calcium 7.8 L Magnesium 2.0 Nasal Screen MRSA (PCR) 04/27/18 13:55 WBC RBC Hgb Hct MCV MCH MCHC RDW Plt Count MPV Neut % (Auto) Lymph % (Auto) Maury % (Auto) Eos % (Auto) Baso % (Auto) Neut # (Auto) Lymph # (Auto) Maury # (Auto) Eos # (Auto) Baso # (Auto) WBC Differential Differential Comment APTT 27.3 D Sodium Potassium Chloride Carbon Dioxide Anion Gap BUN Creatinine Estimated GFR Random Glucose Calcium Magnesium Nasal Screen MRSA (PCR) - Imaging Impressions Chest CTA 04/26/18 00:00 CONCLUSION: 1. No evidence of pulmonary embolism. 2. Minimal scattered patchy densities are noted within the lower and upper lobes consistent with possible pneumonia. Debris is noted within the right mainstem bronchus and extending into the right upper and lower lobe bronchi. 3. The diffusely dilated esophagus which contains debris raising the possibility of achalasia or achalasia-like process. Outpatient evaluation of this finding could be performed if requested. 4. Coronary artery calcifications. 5. Calcified nonobstructing left renal calculi. Assessment and Plan - Plan This patient is a 57-year-old male with a diagnosis of gastroesophageal reflux disease, history of ischemic CVA with right-sided hemiparesis. The patient presented to our emergency department today accompanied by his significant other who says that over the past 1 month the patient has had some dysphagia, and has been coughing over the past week. He has an extensive tobacco smoking history and has been smoking nearly 2 packs of cigarettes per day since the age of 18. He has not been able to tolerate a p.o. diet over the past week and his significant other was concerned and so she brought him into the emergency department today. In the ER he was found to be hypoxic and coughing. At baseline the patient can say yes or no otherwise he does not communicate very well. As per the emergency department physician notes when EMS arrived to his house there was feces on the patient's bed, blankets, and bugs all over the patient as well as as a significant other. She denies any fevers or chills, no chest pain, no diarrhea. 1. Acute hypoxic hypercapnic respiratory failure likely secondary to aspiration 2. Tobacco abuse Patient presented with the symptoms mentioned above. CTA of the chest is negative for pulmonary embolus however shows debris is in the right mainstem bronchus which could be contributing the patient's symptoms. The patient is afebrile and WBC count is normal. The patient's chest imaging findings could be chemical pneumonitis versus pneumonia. Continue antibiotics for today Follow up with recommendations from pulmonology Continue breathing treatments and supplemental oxygen. The patient may need a bronchoscopy to remove the debris is in the right mainstem bronchus. I will follow up with recommendations from pulmonary team. Patient and his were counseled on tobacco smoking. 3. Diffusely dilated esophagus CT of the chest also showed diffusely dilated esophagus which contains debris, and findings concerning of achalasia. GI will be consulted to evaluate the patient. Patient failed swallow evaluation yesterday. He will be kept n.p.o. continue IV fluids. 4. Hypokalemia Patient was given potassium replacement. Repeat potassium level ordered. 5. History of ischemic CVA Continue aspirin per rectal as the patient is currently n.p.o. Repeat CT scan of the head today does not show any new acute findings. DVT prophylaxis: Subcu heparin for DVT prophylaxis
--- NOTE | 2018-04-27 17:28 | MB ---
cc: Rashad Solorzano MD DATE: 04/27/2018 REASON FOR CONSULTATION: Respiratory failure, COPD, and pneumonia. HISTORY OF PRESENT ILLNESS: The patient is a 57-year-old male presents to the emergency room with progressive dysphagia, unable to swallow or tolerate a normal diet. The patient does have history of acid reflux disease, previous ischemic stroke with right hemiparesis, as well as long heavy smoking history and probable COPD. He denies history of fever, chills, hemoptysis, TB or previous industrial exposure. PAST MEDICAL HISTORY: 1. Acid reflux disease. 2. CVA.. 3. Probable COPD. FAMILY HISTORY: Noncontributory. SOCIAL HISTORY: The patient has a heavy smoking history: Does not smoke at present. PHYSICAL EXAMINATION: GENERAL: Alert and appears in no distress. He is on oxygen via nasal cannula. VITAL SIGNS: Temperature 98, pulse 80, respirations 18, blood pressure 140/70. HEENT: Unremarkable. Eyes without icterus. NECK: Without adenopathy, thyroid enlargement. Central trachea. CHEST: Few scattered rhonchi bilaterally. CARDIAC: PMI not appreciated. S1, S2 audible. No murmur. No rub. ABDOMEN: Lax, audible bowel sounds. EXTREMITIES: No edema. LABORATORY DATA: White count 6.5, hemoglobin 14, hematocrit 43, platelets 164,000. Sodium 143, potassium 3.7, BUN 10, creatinine 0.5. CT angiogram: No PE, bilateral lung infiltrates. CT scan of the chest: No PE, bilateral infiltrates, esophageal dilatation. IMPRESSION: 1. Respiratory failure. 2. Probable chronic obstructive pulmonary disease. 3. Bilateral lung infiltrates, probably due to recurrent aspiration. 4. Esophageal dilatation, question achalasia. PLAN: The patient to continue his oxygen therapy for underlying hypoxemia, antibiotic therapy for probable aspiration. Pulmonary toilet, bronchodilators would be appropriate. We will follow his course along with you. Obviously GI evaluation to treat his apparent esophageal obstruction would be appropriate as well. I do thank you for asking me to partake in Mr. Whelan's care. Rashad Solorzano MD WWW/ct , 02:09 PM , 02:17 PM
--- NOTE | 2018-04-27 17:50 | P.CONGI ---
History of Present Illness Consult date: 04/27/18 Consult reason: Esophageal dilatation possible achalasia Chief complaint: Hypoxia History of Present Illness: This is a 57-year-old male who came to the hospital on 04/25/2018 with some dysphasia and coughing when eating onset approximately 1 month ago according to the record. Patient is nonverbal but does nod his head yes or no and seems to understand simple questions. He is currently being managed in the intensive care setting close monitoring of his O2 sats vital signs and labs. Patient has shortness of breath and some decreased O2 saturations. CT of the chest was done showing diffusely dilated esophagus which contains debris's raising the possibility of achalasia or achalasia-like process. Patient also has scattered patchy densities within the lower and upper lobes consistent with possible pneumonia debris was also noted in the right mainstem bronchus and extending into the right upper and lower bronchi. Patient does note some coughing when eating, some diffuse abdominal discomfort, but no diarrhea no constipation. Current hemoglobin 10.9, platelet count 150, PT/INR 1.1, and potassium 2.6. Patient does have mild hyperbilirubinemia with initial bilirubin 2.3 now decreased to 1.7, alkaline phosphatase and LFTs and lipase are normal. Patient denies any family history of colon cancer or GI disease, unknown any history of EGD or colonoscopy. It is noted that patient is a heavy smoker at least 2 packs a day, has increased rhonchi and his oral secretions. According to the record patient denies any history of alcohol abuse or history of drug abuse. Gastroenterology has been consulted to assist with his care and evaluate any possible achalasia. 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 - Medical History Medical History: Medical History (Last Reviewed 04/27/18 @ 09:13 by Brea Gastelum) Hernia History of stroke No significant past surgical history Smoker Speech impairment - Tobacco History Second Hand Smoke Exposure: Yes Tobacco Use In Past 30 Days: Yes Smoking Status: Current every day smoker Tobacco Type: Cigarettes - Alcohol History How Often Do You Have a Drink Containing Alcohol: Monthly or less - Substance Use History Substance History: No History of Abuse - Travel History Recent Travel in the [place] Within the Last 8 Weeks: No Recent Travel Out of the Country Within the Last 8 Weeks: No - Immunization History Tetanus Immunization: Unsure Medications and Allergies Active Medications: Active Medications Albuterol (Duoneb Neb (Doretha)) 1 ampul NEB Q4HR NEB [facility]ORETHA Last Admin: 04/27/18 14:57 Dose: 1 ampul Aspirin (Aspirin Supp) 300 mg RECTAL DAILY DORETHA Last Admin: 04/27/18 09:02 Dose: 300 mg Heparin Sodium (Porcine) (Heparin Inj) 5,000 units SQ Q12HR DORETHA Dextrose/Sodium Chloride (D5w/Normal Saline Inj) 1,000 mls @ 84 mls/hr IV.CONT .[id number] [facility] Last Admin: 04/27/18 14:55 Dose: 84 mls/hr Azithromycin 250 mg/ Sodium (Chloride) 250 mls @ 250 mls/hr IV.SIG Q24H DORETHA Last Infusion: 04/27/18 17:12 Dose: Infused Ceftriaxone Sodium 1,000 mg/ (Sodium Chloride) 100 mls @ 200 mls/hr IV.SIG Q24H DORETHA Last Infusion: 04/27/18 10:53 Dose: Infused Pantoprazole Sodium (Protonix Inj) 40 mg IV.PUSH Q24H [facility] Last Admin: 04/26/18 21:37 Dose: 40 mg Sodium Chloride (Ns Flush) 2 ml IV.FLUSH PRN PRN PRN Reason: FLUSH AFTER USING IV ACCESS Last Admin: 04/27/18 09:03 Dose: 2 ml Allergies Allergy/AdvReac Type Severity Reaction Status Date / Time No Known Allergies Allergy Verified 04/25/18 20:36 Home Medications Medication Instructions Recorded Confirmed Type Unable to Obtain Home Meds 04/26/18 04/26/18 History Exam Vital signs: Vital Signs 04/26/18 19:57 04/26/18 20:00 04/26/18 21:00 Temperature 98.2 F Pulse Rate 66 67 80 Respiratory Rate 14 16 16 Blood Pressure 136/80 Pulse Oximetry 100 100 98 04/26/18 22:00 04/26/18 23:00 04/27/18 00:00 Temperature 98 F Pulse Rate 78 66 64 Respiratory Rate 16 16 Blood Pressure 124/83 145/82 H Pulse Oximetry 100 95 100 04/27/18 01:00 04/27/18 02:00 04/27/18 03:00 Temperature Pulse Rate 60 53 L 59 L Respiratory Rate 16 16 16 Blood Pressure 161/74 H Pulse Oximetry 96 97 98 04/27/18 04:00 04/27/18 05:00 04/27/18 06:00 Temperature 98.1 F Pulse Rate 59 L 52 L 65 Respiratory Rate 16 16 16 Blood Pressure 146/78 H 141/88 H Pulse Oximetry 97 97 100 04/27/18 06:53 04/27/18 07:00 04/27/18 08:00 Temperature 98.3 F Pulse Rate 68 78 52 L Respiratory Rate 23 24 19 Blood Pressure 141/65 H Pulse Oximetry 98 100 100 04/27/18 08:01 04/27/18 09:00 04/27/18 09:11 Temperature Pulse Rate 58 L 62 85 Respiratory Rate 20 20 Blood Pressure 141/65 H 127/75 Pulse Oximetry 100 100 100 04/27/18 10:00 04/27/18 11:00 04/27/18 12:00 Temperature Pulse Rate 54 L 60 62 Respiratory Rate 18 21 Blood Pressure 123/75 120/78 Pulse Oximetry 100 99 100 04/27/18 13:00 04/27/18 14:00 04/27/18 14:38 Temperature Pulse Rate 64 71 79 Respiratory Rate 19 24 28 H Blood Pressure 110/67 121/78 Pulse Oximetry 97 93 L 89 L 04/27/18 14:57 Temperature Pulse Rate 78 Respiratory Rate 22 Blood Pressure Pulse Oximetry Intake & Output 04/26/18 04/27/18 04/27/18 18:59 06:59 18:59 Intake Total 250 / 250 1000 / 1000 1750 / 1750 Output Total 150 / 150 200 / 200 Balance 100 / 100 800 / 800 1750 / 1750 Weight 53.3 kg Intake: IV 250 / 250 1000 / 1000 1750 / 1750 D5W/Normal Saline Inj 1,000 ML 1000 / 1000 1000 / 1000 @ 84 mls/hr IV.CONT .[id number] [facility] Rx#:[id number] Azithromycin Inj 250 MG In NS 250 / 250 250 / 250 Inj 250 ML @ 250 mls/hr IV.SIG Q24H [facility] Rx#:[id number] KCl 20 mEq Premix Inj 20 meq In 400 / 400 100 ml @ 50 mls/hr IV.SIG Q2H [facility] Rx#:[id number] Rocephin Inj 1,000 MG In NS Inj 100 / 100 100 ML @ 200 mls/hr IV.SIG Q24H [facility] Rx#:[id number] Output: Urine 150 / 150 200 / 200 Other: # Voids 2 - Constitutional moderate distress, thin, cachectic (Not speaking but shaking his head yes or no to simple questions), chronically ill appearing, disheveled - Routine HEENT Exam ENT: Present: mucous membranes moist (Thick oral mucous) - Routine Respiratory Exam Present: accessory muscle use, decreased breath sounds, rhonchi, distant breath sounds, diminished air movement - Routine Cardiovascular Exam Present: S1, S2 - Routine Abdominal Exam Present: soft (Distant flat, soft bowel sounds) - Routine Neurological Exam Present: alert (Awake, nonverbal) Results - Labs CBC & Chem 7: 04/27/18 03:37 04/27/18 20:28 Labs: Laboratory Results - last 24 hr 04/26/18 04/26/18 04/26/18 15:46 17:10 20:14 WBC RBC Hgb Hct MCV MCH MCHC RDW Plt Count MPV Neut % (Auto) Lymph % (Auto) Tate % (Auto) Eos % (Auto) Baso % (Auto) Neut # (Auto) Lymph # (Auto) Tate # (Auto) Eos # (Auto) Baso # (Auto) WBC Differential Differential Comment APTT 105.6 H* D 79.0 H D Sodium Potassium Chloride Carbon Dioxide Anion Gap BUN Creatinine Estimated GFR Random Glucose Calcium Magnesium Nasal Screen MRSA (PCR) Not detected 04/27/18 04/27/18 04/27/18 03:37 03:37 03:37 WBC 4.1 RBC 4.06 L Hgb 10.9 L D Hct 32.9 L MCV 80.9 MCH 26.9 L MCHC 33.2 RDW 18.9 H Plt Count 150 MPV 7.5 Neut % (Auto) 83.7 H Lymph % (Auto) 13.9 Tate % (Auto) 2.3 Eos % (Auto) 0.1 Baso % (Auto) 0.0 Neut # (Auto) 3.4 Lymph # (Auto) 0.6 L Tate # (Auto) 0.1 Eos # (Auto) 0.0 Baso # (Auto) 0.0 WBC Differential . Differential Comment Auto diff final APTT 86.3 H Sodium 146 H Potassium 2.6 L* D Chloride 109 H Carbon Dioxide 30.5 Anion Gap 7 BUN 8 Creatinine 0.50 L Estimated GFR Greater than 89 Random Glucose 151 H Calcium 7.8 L Magnesium 2.0 Nasal Screen MRSA (PCR) 04/27/18 13:55 WBC RBC Hgb Hct MCV MCH MCHC RDW Plt Count MPV Neut % (Auto) Lymph % (Auto) Tate % (Auto) Eos % (Auto) Baso % (Auto) Neut # (Auto) Lymph # (Auto) Tate # (Auto) Eos # (Auto) Baso # (Auto) WBC Differential Differential Comment APTT 27.3 D Sodium Potassium Chloride Carbon Dioxide Anion Gap BUN Creatinine Estimated GFR Random Glucose Calcium Magnesium Nasal Screen MRSA (PCR) - Imaging Impressions Chest CTA 04/26/18 00:00 CONCLUSION: 1. No evidence of pulmonary embolism. 2. Minimal scattered patchy densities are noted within the lower and upper lobes consistent with possible pneumonia. Debris is noted within the right mainstem bronchus and extending into the right upper and lower lobe bronchi. 3. The diffusely dilated esophagus which contains debris raising the possibility of achalasia or achalasia-like process. Outpatient evaluation of this finding could be performed if requested. 4. Coronary artery calcifications. 5. Calcified nonobstructing left renal calculi. Assessment and Plan - Plan 57-year-old male who came to the hospital on 04/25/2018 with some dysphasia and coughing when eating onset approximately 1 month ago according to the record. Patient is nonverbal but does nod his head yes or no and seems to understand simple questions. He is currently being managed in the intensive care setting close monitoring of his O2 sats vital signs and labs. Patient has shortness of breath and some decreased O2 saturations. CT of the chest was done showing diffusely dilated esophagus which contains debris's raising the possibility of achalasia or achalasia-like process. Patient also has scattered patchy densities within the lower and upper lobes consistent with possible pneumonia debris was also noted in the right mainstem bronchus and extending into the right upper and lower bronchi. Patient does note some coughing when eating, some diffuse abdominal discomfort, but no diarrhea no constipation. Current hemoglobin 10.9, platelet count 150, PT/INR 1.1, and potassium 2.6. Patient does have mild hyperbilirubinemia with initial bilirubin 2.3 now decreased to 1.7, alkaline phosphatase and LFTs and lipase are normal. Patient denies any family history of colon cancer or GI disease, unknown any history of EGD or colonoscopy. It is noted that patient is a heavy smoker at least 2 packs a day , has increased rhonchi and his oral secretions. According to the record patient denies any history of alcohol abuse or history of drug abuse. Gastroenterology has been consulted to assist with his care and evaluate any possible achalasia. Esophageal dilatation seen on CTA Possible esophageal achalasia, debris noted in the esophagus as well as right mainstem bronchus Hyperbilirubinemia, unspecified an unknown cause for now could be related to some hepatocellular disease. Will consider further liver workup and evaluation , possible outpatient History of ischemic CVA and right-sided hemiparesis Dysphasia probably related to #1 and #2 Plan Diet n.p.o. upper GI with barium in am Will consider endoscopy after initial workups are complete and patient is stable from a cardiopulmonary perspective. IV PPI Antibiotics per attending IV hydration Further recommendations to follow Patient was seen per myself and Dr. Mcguire, note was written on his behalf
[2018-04-27] MEDS: Dextrose 5%/NaCl 0.45% Inj 1,000 ML IV.SIG SCH (19:00)
[2018-04-27] MEDS: Heparin - SQ 10,000 UNITS/ML Vial SQ SCH (21:06)
[2018-04-27] MEDS: Pantoprazole Inj 40 MG Vial IV.PUSH SCH (21:06)
[2018-04-28] MEDS: Dextrose 5%/NaCl 0.45% Inj 1,000 ML IV.SIG SCH (06:16)
[2018-04-28] MEDS: Heparin - SQ 10,000 UNITS/ML Vial SQ SCH ×2 (09:22→22:11)
[2018-04-28] MEDS: Aspirin 300 MG Supp RECTAL SCH (09:22)
--- NOTE | 2018-04-28 09:56 | P.PNIM ---
Subjective Interval history: Patient does not appear to be in any acute distress. Still on supplemental oxygen, patient coughs occasionally. Physical Exam Vital signs: Vital Signs 04/27/18 10:00 04/27/18 11:00 04/27/18 12:00 Temperature Pulse Rate 54 L 60 62 Respiratory Rate 18 21 Blood Pressure 123/75 120/78 Pulse Oximetry 100 99 100 04/27/18 13:00 04/27/18 14:00 04/27/18 14:38 Temperature Pulse Rate 64 71 79 Respiratory Rate 19 24 28 H Blood Pressure 110/67 121/78 Pulse Oximetry 97 93 L 89 L 04/27/18 14:57 04/27/18 15:00 04/27/18 16:00 Temperature 98.3 F Pulse Rate 78 68 87 Respiratory Rate 22 24 22 Blood Pressure 110/74 Pulse Oximetry 100 95 04/27/18 16:24 04/27/18 17:00 04/27/18 18:00 Temperature Pulse Rate 79 72 79 Respiratory Rate 23 22 21 Blood Pressure 110/74 108/76 116/79 Pulse Oximetry 99 100 100 04/27/18 19:00 04/27/18 20:00 04/27/18 20:20 Temperature 98.2 F Pulse Rate 60 73 60 Respiratory Rate 19 15 12 Blood Pressure 116/76 114/80 Pulse Oximetry 97 99 100 04/27/18 21:00 04/27/18 22:00 04/27/18 23:00 Temperature Pulse Rate 76 83 65 Respiratory Rate 29 H 22 18 Blood Pressure 113/69 113/71 103/69 Pulse Oximetry 96 98 96 04/27/18 23:29 04/28/18 00:00 04/28/18 00:01 Temperature 97.7 F Pulse Rate 65 61 62 Respiratory Rate 16 16 13 Blood Pressure 117/68 Pulse Oximetry 98 99 04/28/18 01:00 04/28/18 01:01 04/28/18 02:00 Temperature Pulse Rate 85 77 85 Respiratory Rate 18 17 33 H Blood Pressure 122/94 H 116/77 Pulse Oximetry 100 100 100 04/28/18 03:00 04/28/18 04:00 04/28/18 04:02 Temperature 97.8 F Pulse Rate 75 64 64 Respiratory Rate 21 24 18 Blood Pressure 119/77 122/69 Pulse Oximetry 100 100 04/28/18 05:00 04/28/18 06:00 04/28/18 08:00 Temperature Pulse Rate 85 63 Respiratory Rate 22 14 Blood Pressure 108/75 102/63 Pulse Oximetry 100 100 100 04/28/18 08:30 Temperature Pulse Rate 67 Respiratory Rate 16 Blood Pressure Pulse Oximetry Intake & Output 04/27/18 04/28/18 04/28/18 18:59 06:59 18:59 Intake Total 1750 / 1750 1000 / 1000 Output Total 150 / 150 150 / 150 Balance 1600 / 1600 850 / 850 Weight 56 kg Intake: IV 1750 / 1750 1000 / 1000 D5W/Normal Saline Inj 1,000 ML 1000 / 1000 @ 84 mls/hr IV.CONT .[id number] [facility] Rx#:[id number] Azithromycin Inj 250 MG In NS 250 / 250 Inj 250 ML @ 250 mls/hr IV.SIG Q24H [facility] Rx#:[id number] D5W/1/2 NS Inj 1,000 ML @ 84 1000 / 1000 mls/hr IV.SIG .[id number] [facility] Rx#: [id number] KCl 20 mEq Premix Inj 20 meq In 400 / 400 100 ml @ 50 mls/hr IV.SIG Q2H [facility] Rx#:[id number] Rocephin Inj 1,000 MG In NS Inj 100 / 100 100 ML @ 200 mls/hr IV.SIG Q24H [facility] Rx#:[id number] Output: Urine 150 / 150 150 / 150 Other: # Voids 2 # Bowel Movements 0 0 Narrative: General patient appears comfortable laying in bed. He answers yes and no to my questions. HEENT extraocular movements are intact, clear oropharyngeal mucosa, no JVD Cardiovascular S1-S2 audible, RRR, no murmurs rubs or gallops Respiratory no significant change in coarseness bilaterally. No wheezing Abdomen soft, nontender, nondistended, normal bowel sounds Extremities no edema 2+ distal pulses in bilateral upper and lower extremities Neuro patient is a aphasic, he responds to yes and no. 3 out of 5 strength of the right upper and right lower extremity. Sensation appears to be intact bilaterally Results - Labs CBC & Chem 7: 04/27/18 03:37 04/27/18 20:28 Laboratory Results - last 24 hr 04/27/18 04/27/18 13:55 20:28 APTT 27.3 D Potassium 3.5 D Assessment and Plan - Plan This patient is a 57-year-old male with a diagnosis of gastroesophageal reflux disease, history of ischemic CVA with right-sided hemiparesis. The patient presented to our emergency department today accompanied by his significant other who says that over the past 1 month the patient has had some dysphagia, and has been coughing over the past week. He has an extensive tobacco smoking history and has been smoking nearly 2 packs of cigarettes per day since the age of 18. He has not been able to tolerate a p.o. diet over the past week and his significant other was concerned and so she brought him into the emergency department today. In the ER he was found to be hypoxic and coughing. At baseline the patient can say yes or no otherwise he does not communicate very well. As per the emergency department physician notes when EMS arrived to his house there was feces on the patient's bed, blankets, and bugs all over the patient as well as as a significant other. She denies any fevers or chills, no chest pain, no diarrhea. 1. Acute hypoxic hypercapnic respiratory failure likely secondary to aspiration 2. Tobacco abuse Patient presented with the symptoms mentioned above. CTA of the chest is negative for pulmonary embolus however shows debris is in the right mainstem bronchus which could be contributing the patient's symptoms. The patient is afebrile and WBC count is normal. The patient's chest imaging findings could be chemical pneumonitis versus pneumonia. The patient was evaluated by pulmonology yesterday and recommendations are to continue supplemental oxygen and antibiotics. Continue breathing treatments and supplemental oxygen. I will follow up with any other recommendations from pulmonary team. Patient and his were counseled on tobacco smoking. 3. Diffusely dilated esophagus with dysphagia CT of the chest also showed diffusely dilated esophagus which contains debris, and findings concerning of achalasia. GI was consulted and recommends a barium swallow this morning. N.p.o. as per speech and swallow recommendations Will follow up with GI. 4. Hypokalemia Patient's potassium was replaced yesterday. BMP ordered for today. 5. History of ischemic CVA Continue aspirin per rectal as the patient is currently n.p.o. Repeat CT scan of the head today does not show any new acute findings. DVT prophylaxis: Subcu heparin for DVT prophylaxis
[2018-04-28 12:47] LABS: Hematocrit 37.4 % (39.0-51.0); Mean Corpuscular Volume 84.5 fL (80.0-100.0); Mean Platelet Volume 8.1 fL (7.0-11.0); Platelet Count 142 th/mm3 (150-450); Red Blood Count 4.43 mil/mm3 (4.50-5.90); Red Cell Distribution Width 19.5 % (11.6-17.2); White Blood Count 7.1 th/mm3 (4.0-11.0)
[2018-04-28 13:10] LABS: Anion Gap 9 meq/L (5-15); Blood Urea Nitrogen 9 mg/dL (7-18); Calcium 8.1 mg/dL (8.5-10.1); Carbon Dioxide 27.1 meq/L (21.0-32.0); Chloride 111 meq/L (98-107); Glomerular Filtration Rate Greater Than 89 mL/min (>89); Glucose,Random 100 mg/dL (74-106); Magnesium 1.7 mg/dL (1.5-2.5); Potassium 3.4 meq/L (3.5-5.1); Sodium 147 meq/L (136-145)
--- NOTE | 2018-04-28 16:52 | P.PN ---
Subjective Interval history: alert nad no sob at rest Physical Exam Vital signs: Vital Signs 04/27/18 17:00 04/27/18 18:00 04/27/18 19:00 Temperature Pulse Rate 72 79 60 Respiratory Rate 22 21 19 Blood Pressure 108/76 116/79 116/76 Pulse Oximetry 100 100 97 04/27/18 20:00 04/27/18 20:20 04/27/18 21:00 Temperature 98.2 F Pulse Rate 73 60 76 Respiratory Rate 15 12 29 H Blood Pressure 114/80 113/69 Pulse Oximetry 99 100 96 04/27/18 22:00 04/27/18 23:00 04/27/18 23:29 Temperature Pulse Rate 83 65 65 Respiratory Rate 22 18 16 Blood Pressure 113/71 103/69 Pulse Oximetry 98 96 04/28/18 00:00 04/28/18 00:01 04/28/18 01:00 Temperature 97.7 F Pulse Rate 61 62 85 Respiratory Rate 16 13 18 Blood Pressure 117/68 Pulse Oximetry 98 99 100 04/28/18 01:01 04/28/18 02:00 04/28/18 03:00 Temperature Pulse Rate 77 85 75 Respiratory Rate 17 33 H 21 Blood Pressure 122/94 H 116/77 119/77 Pulse Oximetry 100 100 100 04/28/18 04:00 04/28/18 04:02 04/28/18 05:00 Temperature 97.8 F Pulse Rate 64 64 85 Respiratory Rate 24 18 22 Blood Pressure 122/69 108/75 Pulse Oximetry 100 100 04/28/18 06:00 04/28/18 08:00 04/28/18 08:30 Temperature 98.3 F Pulse Rate 63 73 67 Respiratory Rate 14 22 16 Blood Pressure 102/63 106/73 Pulse Oximetry 100 99 04/28/18 10:00 04/28/18 16:42 Temperature Pulse Rate 92 H 70 Respiratory Rate Blood Pressure Pulse Oximetry Intake & Output 04/27/18 04/28/18 04/28/18 18:59 06:59 18:59 Intake Total 1750 / 1750 1000 / 1000 1200 / 1200 Output Total 150 / 150 150 / 150 Balance 1600 / 1600 850 / 850 1200 / 1200 Weight 56 kg Intake: IV 1750 / 1750 1000 / 1000 1200 / 1200 D5W/Normal Saline Inj 1,000 ML 1000 / 1000 1000 / 1000 @ 84 mls/hr IV.CONT .[id number] [facility] Rx#:[id number] Azithromycin Inj 250 MG In NS 250 / 250 Inj 250 ML @ 250 mls/hr IV.SIG Q24H [facility] Rx#:[id number] D5W/1/2 NS Inj 1,000 ML @ 84 1000 / 1000 mls/hr IV.SIG .[id number] [facility] Rx#: [id number] KCl 20 mEq Premix Inj 20 meq In 400 / 400 100 ml @ 50 mls/hr IV.SIG Q2H [facility] Rx#:[id number] Rocephin Inj 1,000 MG In NS Inj 100 / 100 100 / 100 100 ML @ 200 mls/hr IV.SIG Q24H [facility] Rx#:[id number] Flagyl 500 MG Inj 100 ML @ 100 100 / 100 mls/hr IV.SIG Q8H [facility] Rx#: [id number] Output: Urine 150 / 150 150 / 150 Other: # Voids 2 # Bowel Movements 0 0 Narrative: General patient appears comfortable laying in bed. He answers yes and no to my questions. HEENT extraocular movements are intact, clear oropharyngeal mucosa, no JVD Cardiovascular S1-S2 audible, RRR, no murmurs rubs or gallops Respiratory no significant change in coarseness bilaterally. No wheezing Abdomen soft, nontender, nondistended, normal bowel sounds Extremities no edema 2+ distal pulses in bilateral upper and lower extremities Neuro patient is a aphasic, he responds to yes and no. 3 out of 5 strength of the right upper and right lower extremity. Sensation appears to be intact bilaterally Results - Labs CBC & Chem 7: 04/28/18 11:39 04/28/18 11:39 Laboratory Results - last 24 hr 04/27/18 04/28/18 04/28/18 20:28 11:39 11:39 WBC 7.1 RBC 4.43 L Hgb 12.0 L Hct 37.4 L MCV 84.5 D MCH 27.0 MCHC 32.0 RDW 19.5 H Plt Count 142 L MPV 8.1 Sodium 147 H Potassium 3.5 D 3.4 L Chloride 111 H Carbon Dioxide 27.1 Anion Gap 9 BUN 9 Creatinine 0.74 Estimated GFR Greater than 89 Random Glucose 100 Calcium 8.1 L Magnesium 1.7 Assessment and Plan - Plan impression respiratory failure pneumonia due to recurrent aspiration oesophageal dilitation plan o2 as needed pulmonary toilet f/u cxray
--- NOTE | 2018-04-28 17:04 | P.PNGI ---
Subjective Interval history: Patient appears to be more awake and more alert and does say occasional yes to questions. Seems to understand them simple questions current significant other in room Physical Exam Vital signs: Vital Signs 04/27/18 17:00 04/27/18 18:00 04/27/18 19:00 Temperature Pulse Rate 72 79 60 Respiratory Rate 22 21 19 Blood Pressure 108/76 116/79 116/76 Pulse Oximetry 100 100 97 04/27/18 20:00 04/27/18 20:20 04/27/18 21:00 Temperature 98.2 F Pulse Rate 73 60 76 Respiratory Rate 15 12 29 H Blood Pressure 114/80 113/69 Pulse Oximetry 99 100 96 04/27/18 22:00 04/27/18 23:00 04/27/18 23:29 Temperature Pulse Rate 83 65 65 Respiratory Rate 22 18 16 Blood Pressure 113/71 103/69 Pulse Oximetry 98 96 04/28/18 00:00 04/28/18 00:01 04/28/18 01:00 Temperature 97.7 F Pulse Rate 61 62 85 Respiratory Rate 16 13 18 Blood Pressure 117/68 Pulse Oximetry 98 99 100 04/28/18 01:01 04/28/18 02:00 04/28/18 03:00 Temperature Pulse Rate 77 85 75 Respiratory Rate 17 33 H 21 Blood Pressure 122/94 H 116/77 119/77 Pulse Oximetry 100 100 100 04/28/18 04:00 04/28/18 04:02 04/28/18 05:00 Temperature 97.8 F Pulse Rate 64 64 85 Respiratory Rate 24 18 22 Blood Pressure 122/69 108/75 Pulse Oximetry 100 100 04/28/18 06:00 04/28/18 08:00 04/28/18 08:30 Temperature 98.3 F Pulse Rate 63 73 67 Respiratory Rate 14 22 16 Blood Pressure 102/63 106/73 Pulse Oximetry 100 99 04/28/18 10:00 04/28/18 16:42 Temperature Pulse Rate 92 H 70 Respiratory Rate Blood Pressure Pulse Oximetry Intake & Output 04/27/18 04/28/18 04/28/18 18:59 06:59 18:59 Intake Total 1750 / 1750 1000 / 1000 1200 / 1200 Output Total 150 / 150 150 / 150 Balance 1600 / 1600 850 / 850 1200 / 1200 Weight 56 kg Intake: IV 1750 / 1750 1000 / 1000 1200 / 1200 D5W/Normal Saline Inj 1,000 ML 1000 / 1000 1000 / 1000 @ 84 mls/hr IV.CONT .[id number] [facility] Rx#:[id number] Azithromycin Inj 250 MG In NS 250 / 250 Inj 250 ML @ 250 mls/hr IV.SIG Q24H [facility] Rx#:[id number] D5W/1/2 NS Inj 1,000 ML @ 84 1000 / 1000 mls/hr IV.SIG .[id number] [facility] Rx#: [id number] KCl 20 mEq Premix Inj 20 meq In 400 / 400 100 ml @ 50 mls/hr IV.SIG Q2H [facility] Rx#:[id number] Rocephin Inj 1,000 MG In NS Inj 100 / 100 100 / 100 100 ML @ 200 mls/hr IV.SIG Q24H [facility] Rx#:[id number] Flagyl 500 MG Inj 100 ML @ 100 100 / 100 mls/hr IV.SIG Q8H [facility] Rx#: [id number] Output: Urine 150 / 150 150 / 150 Other: # Voids 2 # Bowel Movements 0 0 - Constitutional mild distress, cachectic, disheveled - Routine HEENT Exam Head: Present: normocephalic (Generalized paleness) ENT: Present: mucous membranes moist - Routine Respiratory Exam Present: accessory muscle use - Routine Cardiovascular Exam Present: S1, S2 - Routine Abdominal Exam Present: soft (Flat, soft bowel sounds) Results - Labs CBC & Chem 7: 04/28/18 11:39 04/28/18 11:39 Laboratory Results - last 24 hr 04/27/18 04/28/18 04/28/18 20:28 11:39 11:39 WBC 7.1 RBC 4.43 L Hgb 12.0 L Hct 37.4 L MCV 84.5 D MCH 27.0 MCHC 32.0 RDW 19.5 H Plt Count 142 L MPV 8.1 Sodium 147 H Potassium 3.5 D 3.4 L Chloride 111 H Carbon Dioxide 27.1 Anion Gap 9 BUN 9 Creatinine 0.74 Estimated GFR Greater than 89 Random Glucose 100 Calcium 8.1 L Magnesium 1.7 Assessment and Plan - Plan 57-year-old male who came to the hospital on 04/25/2018 with some dysphasia and coughing when eating onset approximately 1 month ago according to the record. Patient is nonverbal but does nod his head yes or no and seems to understand simple questions. He is currently being managed in the intensive care setting close monitoring of his O2 sats vital signs and labs. Patient has shortness of breath and some decreased O2 saturations. CT of the chest was done showing diffusely dilated esophagus which contains debris's raising the possibility of achalasia or achalasia-like process. Patient also has scattered patchy densities within the lower and upper lobes consistent with possible pneumonia debris was also noted in the right mainstem bronchus and extending into the right upper and lower bronchi. Patient does note some coughing when eating, some diffuse abdominal discomfort, but no diarrhea no constipation. Current hemoglobin 10.9, platelet count 150, PT/INR 1.1, and potassium 2.6. Patient does have mild hyperbilirubinemia with initial bilirubin 2.3 now decreased to 1.7, alkaline phosphatase and LFTs and lipase are normal. Patient denies any family history of colon cancer or GI disease, unknown any history of EGD or colonoscopy. It is noted that patient is a heavy smoker at least 2 packs a day , has increased rhonchi and his oral secretions. According to the record patient denies any history of alcohol abuse or history of drug abuse. Gastroenterology has been consulted to assist with his care and evaluate any possible achalasia. Esophageal dilatation seen on CTA Possible esophageal achalasia, debris noted in the esophagus as well as right mainstem bronchus Hyperbilirubinemia, unspecified an unknown cause for now could be related to some hepatocellular disease. Will consider further liver workup and evaluation , possible outpatient History of ischemic CVA and right-sided hemiparesis Dysphasia probably related to #1 and #2 04/28/2018 hemoglobin 12 normal WBC count. Patient appears to be more alert without any respiratory distress. Upper GI series with barium pending to evaluate further possible achalasia. Discussed with patient possible need for replacement of gastric tube per IR dependent on upper GI series. No obvious bleeding no abdominal pain O2 sat 100. Patient may need further outpatient workup with manometry and possible myotomy at a later date Plan Diet n.p.o. upper GI series with barium Consider gastric tube placement per IR dependent on upper GI series IV PPI Antibiotics per attending IV hydration Further recommendations to follow Patient was seen per myself and Dr. Mcguire, note was written on his behalf
[2018-04-28] MEDS ORDERED: Potassium Chlor 20 mEq Premix 20 MEQ/100 ML PIGGYBACK IV.SIG PRN (17:06)
[2018-04-28] MEDS ORDERED: Magnesium Sulfate Inj 4 GM in Sodium Chlor 0.9% Inj 92 ML IV.SIG PRN (17:06)
[2018-04-28] MEDS ORDERED: Magnesium Sulfate Inj 2 GM in Sodium Chlor 0.9% Inj 96 ML IV.SIG PRN (17:06)
[2018-04-28] MEDS ORDERED: Potassium Phosphate 500 MG Soluble Tablet PO PRN ×2 (17:06)
[2018-04-28] MEDS ORDERED: Potassium Chloride 25 MEQ Effervescent Tablet PO PRN (17:06)
[2018-04-28] MEDS ORDERED: Sodium Phosphate Inj 30 MMOL in Sodium Chlor 0.9% Inj 250 ML IV.SIG PRN (17:06)
[2018-04-28] MEDS ORDERED: Potassium Chlor 40 mEq Premix 40 MEQ/100 ML PIGGYBACK IV.SIG PRN ×2 (17:06)
[2018-04-28] MEDS ORDERED: Potassium Phosphate Inj 30 MMOL in Sodium Chlor 0.9% Inj 250 ML IV.SIG PRN (17:06)
[2018-04-28] MEDS ORDERED: Magnesium Oxide 400 MG Tablet PO PRN (17:06)
[2018-04-28] MEDS: Dextrose 5% in Water Inj 1,000 ML IV.CONT SCH (17:56)
[2018-04-28] MEDS: Mag Sulf 1 gm/100 ml Premix 100 ML IV.SIG SCH ×2 (17:57→20:31)
[2018-04-28] MEDS: Potassium Chlor 20 mEq Premix 20 MEQ/100 ML PIGGYBACK IV.SIG PRN ×2 (17:57→20:13)
[2018-04-28] MEDS: Pantoprazole Inj 40 MG Vial IV.PUSH SCH (22:11)
--- NOTE | 2018-04-29 04:00 | XR ---
EXAM DATE: 04/29/2018 6:00 AM EDT AGE/SEX: 57 years / Male INDICATIONS: Shortness of breath, possible pulmonary disease. CLINICAL DATA: This is the patient's subsequent encounter. Patient reports that signs and symptoms h ave been present for 4 - 6 days and indicates a pain score of 0/10. MEDICAL/SURGICAL HISTORY: Stroke. None. COMPARISON: [facility] [place] 1V SINGLE AP, 04/26/2018. . FINDINGS: The heart size is normal. This increased density at the medial right base. There appears to be a foca l density in the lateral right lower lung. The left lung is clear. No effusion is seen. CONCLUSION: Consolidation or atelectasis in the right medial base. Persistent focal density/possible mass in the lateral right lower lung. Electronically signed by: Shawn Sorto MD 04/29/2018 3:59 AM EDT
--- NOTE | 2018-04-29 08:59 | P.DIET ---
Nutritional Evaluation Type of nutrition evaluation: initial Screening comments: NPO SCREEN Subjective Barriers to Nutrition: Swallowing problem Objective - Diagnosis Hypoxia - Objective Dietitian Reviewed in Medical Record: Current diet Diet Order: NPO Assessment Assessment: Pt is an NPO Screen. NPO x 3-Days. GI note reviewed. ST Recs noted. Please Consult RD if Needed. Recommendations: Please Consult RD if Needed
[2018-04-29] MEDS: Dextrose 5% in Water Inj 1,000 ML IV.CONT SCH (10:08)
[2018-04-29] MEDS: Aspirin 300 MG Supp RECTAL SCH (10:10)
[2018-04-29] MEDS: Heparin - SQ 10,000 UNITS/ML Vial SQ SCH ×2 (10:10→21:42)
--- NOTE | 2018-04-29 11:30 | FL ---
EXAM DATE: 04/29/2018 12:00 AM EDT AGE/SEX: 57 years / Male INDICATIONS: Evaluate for reflux. CLINICAL DATA: This is the patient's subsequent encounter. Patient reports that signs and symptoms h ave been present for 4 - 6 days and indicates a pain score of Nonresponsive. MEDICAL/SURGICAL HISTORY: Hiatal hernia. Stroke. None. COMPARISON: [facility], ABDOMEN 1V KUB, 04/25/2018. . FLUORO TIME: 3.2 min minutes. IMAGE COUNT: 13 FINDINGS: Today's examination was extremely limited due to patient's inability to swallow a medium or large pearl thful of barium at a time. Patient would not cooperate on moving during the procedure. However, there is a smooth elongated narrow stricture involving the distal one third portion of the esophagus causi ng restriction to the flow of contrast into the stomach. Visualization of the stomach was limited sin ce patient refused to drink any more barium. CONCLUSION; There is a smooth elongated narrow stricture involving the distal esophagus causing restriction of fl ow of contrast from the esophagus into the stomach. Recommend direct visualization by endoscopy for f urther evaluation. Electronically signed by: Javier Barcenas MD 04/29/2018 11:29 AM EDT
--- NOTE | 2018-04-29 15:03 | P.PNGI ---
Subjective Interval history: Patient has been transitioned out of intensive care and is resting in his private room No abdominal pain no shortness of breath no nausea no vomiting noted <Shayna Chase M - Last Filed: 04/29/18 15:15> Physical Exam Vital signs: Vital Signs 04/28/18 16:00 04/28/18 16:42 04/28/18 17:00 Temperature 98.2 F Pulse Rate 73 70 87 Respiratory Rate 19 25 H Blood Pressure 119/77 123/72 Pulse Oximetry 96 98 04/28/18 18:00 04/28/18 19:00 04/28/18 20:00 Temperature 98.6 F Pulse Rate 74 77 79 Respiratory Rate 18 12 19 Blood Pressure 133/75 118/77 116/80 Pulse Oximetry 97 97 96 04/28/18 20:02 04/28/18 22:00 04/29/18 00:00 Temperature 98 F Pulse Rate 82 92 H 75 Respiratory Rate 16 18 Blood Pressure 112/80 Pulse Oximetry 96 98 04/29/18 01:00 04/29/18 02:00 04/29/18 03:00 Temperature Pulse Rate 79 74 79 Respiratory Rate Blood Pressure Pulse Oximetry 04/29/18 04:00 04/29/18 05:54 04/29/18 07:00 Temperature 98.2 F Pulse Rate 76 77 92 H Respiratory Rate 18 Blood Pressure 123/85 Pulse Oximetry 99 04/29/18 07:44 04/29/18 08:00 04/29/18 08:44 Temperature 98.8 F Pulse Rate 95 H 92 H 90 Respiratory Rate 18 18 Blood Pressure 128/89 Pulse Oximetry 100 100 04/29/18 10:00 04/29/18 11:00 04/29/18 12:00 Temperature Pulse Rate 92 H 100 H 90 Respiratory Rate 20 Blood Pressure 128/92 H Pulse Oximetry 100 04/29/18 12:07 04/29/18 13:00 04/29/18 14:00 Temperature Pulse Rate 90 96 H 90 Respiratory Rate 18 Blood Pressure Pulse Oximetry Intake & Output 04/28/18 04/29/18 04/29/18 18:59 06:59 18:59 Intake Total 2200 / 2200 600 / 600 1200 / 1200 Output Total 0 / 0 300 / 300 Balance 2200 / 2200 300 / 300 1200 / 1200 Weight 56 kg Intake: IV 2200 / 2200 600 / 600 1200 / 1200 D5W Inj 1,000 ML @ 60 mls/hr IV 1000 / 1000 .CONT .[id number] [facility] Rx#:[id number] D5W/Normal Saline Inj 1,000 ML 1000 / 1000 @ 84 mls/hr IV.CONT .[id number] [facility] Rx#:[id number] D5W/1/2 NS Inj 1,000 ML @ 84 1000 / 1000 mls/hr IV.SIG .[id number] [facility] Rx#: [id number] Magnesium Sulfate 1 gm/D5W 100 200 / 200 ml Premix 100 ML @ 100 mls/hr IV.SIG Q1H [facility] Rx#:[id number] KCl 20 mEq Premix Inj 20 meq In 200 / 200 100 ml @ 50 mls/hr IV.SIG Q2H [facility] Rx#:[id number] Rocephin Inj 1,000 MG In NS Inj 100 / 100 100 / 100 100 ML @ 200 mls/hr IV.SIG Q24H [facility] Rx#:[id number] Flagyl 500 MG Inj 100 ML @ 100 100 / 100 200 / 200 100 / 100 mls/hr IV.SIG Q8H [facility] Rx#: [id number] Oral 0 / 0 Output: Urine 0 / 0 300 / 300 Other: # Bowel Movements 0 0 - Constitutional no acute distress, thin, cachectic, cooperative (History of CVA, a fascia except for occasional 1 word) - Routine HEENT Exam ENT: Present: mucous membranes dry - Routine Respiratory Exam Present: accessory muscle use (No obvious shortness of breath at rest) - Routine Cardiovascular Exam Present: S1, S2 (Distant) - Routine Abdominal Exam Present: soft, normoactive bowel sounds (Flat, soft bowel sounds no obvious tenderness, previous PEG tube from 4 years ago) - Routine Skin Exam Present: pallor <TaopiChristinaShayna M - Last Filed: 04/29/18 15:15> Vital signs: Vital Signs 04/28/18 22:00 04/29/18 00:00 04/29/18 01:00 Temperature 98 F Pulse Rate 92 H 75 79 Respiratory Rate 18 Blood Pressure 112/80 Pulse Oximetry 98 04/29/18 02:00 04/29/18 03:00 04/29/18 04:00 Temperature 98.2 F Pulse Rate 74 79 76 Respiratory Rate 18 Blood Pressure 123/85 Pulse Oximetry 99 10/22/18 05:54 04/29/18 07:00 04/29/18 07:44 Temperature Pulse Rate 77 92 H 95 H Respiratory Rate 18 Blood Pressure Pulse Oximetry 100 04/29/18 08:00 04/29/18 08:44 04/29/18 10:00 Temperature 98.8 F Pulse Rate 92 H 90 92 H Respiratory Rate 18 Blood Pressure 128/89 Pulse Oximetry 100 04/29/18 11:00 04/29/18 12:00 04/29/18 12:07 Temperature Pulse Rate 100 H 90 90 Respiratory Rate 20 18 Blood Pressure 128/92 H Pulse Oximetry 100 04/29/18 13:00 04/29/18 14:00 04/29/18 15:00 Temperature Pulse Rate 96 H 90 96 H Respiratory Rate Blood Pressure Pulse Oximetry 04/29/18 16:00 04/29/18 16:58 Temperature Pulse Rate 96 H 79 Respiratory Rate 20 18 Blood Pressure Pulse Oximetry 100 Intake & Output 04/29/18 04/29/18 04/30/18 06:59 18:59 06:59 Intake Total 600 / 600 1200 / 1200 100 / 100 Output Total 300 / 300 400 / 400 Balance 300 / 300 800 / 800 100 / 100 Weight 56 kg Intake: IV 600 / 600 1200 / 1200 100 / 100 D5W Inj 1,000 ML @ 60 mls/hr IV 1000 / 1000 .CONT .[id number] [facility] Rx#:[id number] Magnesium Sulfate 1 gm/D5W 100 200 / 200 ml Premix 100 ML @ 100 mls/hr IV.SIG Q1H [facility] Rx#:[id number] KCl 20 mEq Premix Inj 20 meq In 200 / 200 100 ml @ 50 mls/hr IV.SIG Q2H [facility] Rx#:[id number] Rocephin Inj 1,000 MG In NS Inj 100 / 100 100 ML @ 200 mls/hr IV.SIG Q24H [facility] Rx#:[id number] Flagyl 500 MG Inj 100 ML @ 100 200 / 200 100 / 100 100 / 100 mls/hr IV.SIG Q8H [facility] Rx#: [id number] Oral 0 / 0 0 / 0 Output: Urine 300 / 300 400 / 400 Other: # Incontinent Voids 1 # Bowel Movements 0 <Nicholas Ruiz E - Last Filed: 04/29/18 20:32> Results - Labs CBC & Chem 7: 04/28/18 11:39 04/28/18 11:39 - Imaging Impressions Chest X-Ray 04/29/18 06:00 CONCLUSION: Consolidation or atelectasis in the right medial base. Persistent focal density/possible mass in the lateral right lower lung. <SalvatoreShayna Eileen - Last Filed: 04/29/18 15:15> - Labs CBC & Chem 7: 04/28/18 11:39 04/28/18 11:39 - Imaging Impressions Chest X-Ray 04/29/18 06:00 CONCLUSION: Consolidation or atelectasis in the right medial base. Persistent focal density/possible mass in the lateral right lower lung. <Nicholas Ruiz - Last Filed: 04/29/18 20:32> Assessment and Plan - Plan 57-year-old male who came to the hospital on 04/25/2018 with some dysphasia and coughing when eating onset approximately 1 month ago according to the record. Patient is nonverbal but does nod his head yes or no and seems to understand simple questions. He is currently being managed in the intensive care setting close monitoring of his O2 sats vital signs and labs. Patient has shortness of breath and some decreased O2 saturations. CT of the chest was done showing diffusely dilated esophagus which contains debris's raising the possibility of achalasia or achalasia-like process. Patient also has scattered patchy densities within the lower and upper lobes consistent with possible pneumonia debris was also noted in the right mainstem bronchus and extending into the right upper and lower bronchi. Patient does note some coughing when eating, some diffuse abdominal discomfort, but no diarrhea no constipation. Current hemoglobin 10.9, platelet count 150, PT/INR 1.1, and potassium 2.6. Patient does have mild hyperbilirubinemia with initial bilirubin 2.3 now decreased to 1.7, alkaline phosphatase and LFTs and lipase are normal. Patient denies any family history of colon cancer or GI disease, unknown any history of EGD or colonoscopy. It is noted that patient is a heavy smoker at least 2 packs a day , has increased rhonchi and his oral secretions. According to the record patient denies any history of alcohol abuse or history of drug abuse. Gastroenterology has been consulted to assist with his care and evaluate any possible achalasia. Esophageal dilatation seen on CTA Possible esophageal achalasia, debris noted in the esophagus as well as right mainstem bronchus Hyperbilirubinemia, unspecified an unknown cause for now could be related to some hepatocellular disease. Will consider further liver workup and evaluation , possible outpatient History of ischemic CVA and right-sided hemiparesis Dysphasia probably related to #1 and #2 04/28/2018 hemoglobin 12 normal WBC count. Patient appears to be more alert without any respiratory distress. Upper GI series with barium pending to evaluate further possible achalasia. Discussed with patient possible need for replacement of gastric tube per IR dependent on upper GI series. No obvious bleeding no abdominal pain O2 sat 100. Patient may need further outpatient workup with manometry and possible myotomy at a later date 04/29/2018, achalasia confirmed with upper GI series with barium. Smooth elongated narrow stricture involving the distal esophagus causing restriction of flow of contrast between the esophagus into the stomach recommend direct visualization by endoscopic for further evaluation. Patient denies any current GI distress or shortness of breath. Abnormal chest x-ray reviewed. Long-term patient will need some type of gastric tube placement for nutritional support. Consider IR. Will discuss further the need for EGD and further GI workup. No obvious bleeding last hemoglobin done 12., Potassium 3.4. With monitoring per attending Plan Diet n.p.o. IV PPI Antibiotics per attending Consider IR for G-tube placement IV hydration Further recommendations to follow Patient was seen per myself and Dr. Ruiz, note was written on his behalf <Shayna Chase - Last Filed: 04/29/18 15:15> - Plan Patient seen and examined Agree with above history and physical Continue with current supportive care Monitor labs Plan on an EGD tomorrow with possible dilation possible PEG placement <Nicholas Ruiz - Last Filed: 04/29/18 20:32>
--- NOTE | 2018-04-29 16:57 | P.PN ---
Subjective Interval history: alert NAD urine dark Physical Exam Vital signs: Vital Signs 04/28/18 17:00 04/28/18 18:00 04/28/18 19:00 Temperature Pulse Rate 87 74 77 Respiratory Rate 25 H 18 12 Blood Pressure 123/72 133/75 118/77 Pulse Oximetry 98 97 97 04/28/18 20:00 04/28/18 20:02 04/28/18 22:00 Temperature 98.6 F Pulse Rate 79 82 92 H Respiratory Rate 19 16 Blood Pressure 116/80 Pulse Oximetry 96 96 04/29/18 00:00 04/29/18 01:00 04/29/18 02:00 Temperature 98 F Pulse Rate 75 79 74 Respiratory Rate 18 Blood Pressure 112/80 Pulse Oximetry 98 04/29/18 03:00 04/29/18 04:00 04/29/18 05:54 Temperature 98.2 F Pulse Rate 79 76 77 Respiratory Rate 18 Blood Pressure 123/85 Pulse Oximetry 99 04/29/18 07:00 04/29/18 07:44 04/29/18 08:00 Temperature 98.8 F Pulse Rate 92 H 95 H 92 H Respiratory Rate 18 18 Blood Pressure 128/89 Pulse Oximetry 100 100 04/29/18 08:44 04/29/18 10:00 04/29/18 11:00 Temperature Pulse Rate 90 92 H 100 H Respiratory Rate Blood Pressure Pulse Oximetry 04/29/18 12:00 04/29/18 12:07 04/29/18 13:00 Temperature Pulse Rate 90 90 96 H Respiratory Rate 20 18 Blood Pressure 128/92 H Pulse Oximetry 100 04/29/18 14:00 04/29/18 15:00 Temperature Pulse Rate 90 96 H Respiratory Rate Blood Pressure Pulse Oximetry Intake & Output 04/28/18 04/29/18 04/29/18 18:59 06:59 18:59 Intake Total 2200 / 2200 600 / 600 1200 / 1200 Output Total 0 / 0 300 / 300 Balance 2200 / 2200 300 / 300 1200 / 1200 Weight 56 kg Intake: IV 2200 / 2200 600 / 600 1200 / 1200 D5W Inj 1,000 ML @ 60 mls/hr IV 1000 / 1000 .CONT .[id number] [facility] Rx#:[id number] D5W/Normal Saline Inj 1,000 ML 1000 / 1000 @ 84 mls/hr IV.CONT .[id number] [facility] Rx#:[id number] D5W/1/2 NS Inj 1,000 ML @ 84 1000 / 1000 mls/hr IV.SIG .[id number] [facility] Rx#: [id number] Magnesium Sulfate 1 gm/D5W 100 200 / 200 ml Premix 100 ML @ 100 mls/hr IV.SIG Q1H [facility] Rx#:[id number] KCl 20 mEq Premix Inj 20 meq In 200 / 200 100 ml @ 50 mls/hr IV.SIG Q2H [facility] Rx#:[id number] Rocephin Inj 1,000 MG In NS Inj 100 / 100 100 / 100 100 ML @ 200 mls/hr IV.SIG Q24H [facility] Rx#:[id number] Flagyl 500 MG Inj 100 ML @ 100 100 / 100 200 / 200 100 / 100 mls/hr IV.SIG Q8H [facility] Rx#: [id number] Oral 0 / 0 Output: Urine 0 / 0 300 / 300 Other: # Bowel Movements 0 0 Narrative: General patient appears comfortable laying in bed. He answers yes and no to my questions. HEENT extraocular movements are intact, clear oropharyngeal mucosa, no JVD Cardiovascular S1-S2 audible, RRR, no murmurs rubs or gallops Respiratory no significant change in coarseness bilaterally. No wheezing Abdomen soft, nontender, nondistended, normal bowel sounds Extremities no edema 2+ distal pulses in bilateral upper and lower extremities Neuro patient is a aphasic, he responds to yes and no. 3 out of 5 strength of the right upper and right lower extremity. Sensation appears to be intact bilaterally Results - Labs CBC & Chem 7: 04/28/18 11:39 04/28/18 11:39 - Imaging Impressions Chest X-Ray 04/29/18 06:00 CONCLUSION: Consolidation or atelectasis in the right medial base. Persistent focal density/possible mass in the lateral right lower lung. Assessment and Plan - Plan impression respiratory failure pneumonia due to recurrent aspiration oesophageal dilitation S/P CVA HYPERBILIRUBINEMIA plan o2 as needed pulmonary toilet
--- NOTE | 2018-04-29 18:36 | P.PNIM ---
Subjective Interval history: Patient nonverbal, makes good eye contact. However indicates that he is without pain. Physical Exam Vital signs: Vital Signs 04/28/18 19:00 04/28/18 20:00 04/28/18 20:02 Temperature 98.6 F Pulse Rate 77 79 82 Respiratory Rate 12 19 16 Blood Pressure 118/77 116/80 Pulse Oximetry 97 96 96 04/28/18 22:00 04/29/18 00:00 04/29/18 01:00 Temperature 98 F Pulse Rate 92 H 75 79 Respiratory Rate 18 Blood Pressure 112/80 Pulse Oximetry 98 04/29/18 02:00 04/29/18 03:00 04/29/18 04:00 Temperature 98.2 F Pulse Rate 74 79 76 Respiratory Rate 18 Blood Pressure 123/85 Pulse Oximetry 99 04/29/18 05:54 04/29/18 07:00 04/29/18 07:44 Temperature Pulse Rate 77 92 H 95 H Respiratory Rate 18 Blood Pressure Pulse Oximetry 100 04/29/18 08:00 04/29/18 08:44 04/29/18 10:00 Temperature 98.8 F Pulse Rate 92 H 90 92 H Respiratory Rate 18 Blood Pressure 128/89 Pulse Oximetry 100 04/29/18 11:00 04/29/18 12:00 04/29/18 12:07 Temperature Pulse Rate 100 H 90 90 Respiratory Rate 20 18 Blood Pressure 128/92 H Pulse Oximetry 100 04/29/18 13:00 04/29/18 14:00 04/29/18 15:00 Temperature Pulse Rate 96 H 90 96 H Respiratory Rate Blood Pressure Pulse Oximetry 04/29/18 16:00 04/29/18 16:58 Temperature Pulse Rate 96 H 79 Respiratory Rate 20 18 Blood Pressure Pulse Oximetry 100 Intake & Output 04/28/18 04/29/18 04/29/18 18:59 06:59 18:59 Intake Total 2200 / 2200 600 / 600 1200 / 1200 Output Total 0 / 0 300 / 300 400 / 400 Balance 2200 / 2200 300 / 300 800 / 800 Weight 56 kg Intake: IV 2200 / 2200 600 / 600 1200 / 1200 D5W Inj 1,000 ML @ 60 mls/hr IV 1000 / 1000 .CONT .[id number] [facility] Rx#:[id number] D5W/Normal Saline Inj 1,000 ML 1000 / 1000 @ 84 mls/hr IV.CONT .[id number] [facility] Rx#:[id number] D5W/1/2 NS Inj 1,000 ML @ 84 1000 / 1000 mls/hr IV.SIG .[id number] [facility] Rx#: [id number] Magnesium Sulfate 1 gm/D5W 100 200 / 200 ml Premix 100 ML @ 100 mls/hr IV.SIG Q1H [facility] Rx#:[id number] KCl 20 mEq Premix Inj 20 meq In 200 / 200 100 ml @ 50 mls/hr IV.SIG Q2H [facility] Rx#:[id number] Rocephin Inj 1,000 MG In NS Inj 100 / 100 100 / 100 100 ML @ 200 mls/hr IV.SIG Q24H [facility] Rx#:[id number] Flagyl 500 MG Inj 100 ML @ 100 100 / 100 200 / 200 100 / 100 mls/hr IV.SIG Q8H [facility] Rx#: [id number] Oral 0 / 0 0 / 0 Output: Urine 0 / 0 300 / 300 400 / 400 Other: # Incontinent Voids 1 # Bowel Movements 0 0 Narrative: GENERAL: Patient sitting in bed. Nonverbal, however makes good eye contact SKIN: Warm and dry. HEAD: Normocephalic. EYES: No scleral icterus. No injection or drainage. NECK: Supple, trachea midline. No JVD. CARDIOVASCULAR: Regular rate and rhythm without murmurs, gallops, or rubs. RESPIRATORY: Breath sounds equal bilaterally. No accessory muscle use. GASTROINTESTINAL: Abdomen soft, non-tender, nondistended. MUSCULOSKELETAL: No cyanosis, or edema. BACK: Nontender without obvious deformity. No CVA tenderness. Results - Labs CBC & Chem 7: 04/28/18 11:39 04/28/18 11:39 - Imaging Impressions Chest X-Ray 04/29/18 06:00 CONCLUSION: Consolidation or atelectasis in the right medial base. Persistent focal density/possible mass in the lateral right lower lung. Assessment and Plan - Plan This patient is a 57-year-old male with a diagnosis of gastroesophageal reflux disease, history of ischemic CVA with right-sided hemiparesis. The patient presented to our emergency department today accompanied by his significant other who says that over the past 1 month the patient has had some dysphagia, and has been coughing over the past week. He has an extensive tobacco smoking history and has been smoking nearly 2 packs of cigarettes per day since the age of 18. He has not been able to tolerate a p.o. diet over the past week and his significant other was concerned and so she brought him into the emergency department today. In the ER he was found to be hypoxic and coughing. At baseline the patient can say yes or no otherwise he does not communicate very well. As per the emergency department physician notes when EMS arrived to his house there was feces on the patient's bed, blankets, and bugs all over the patient as well as as a significant other. She denies any fevers or chills, no chest pain, no diarrhea. //Acute hypoxic hypercapnic respiratory failure likely secondary to aspiration //Tobacco abuse Patient presented with the symptoms mentioned above. CTA of the chest is negative for pulmonary embolus however shows debris is in the right mainstem bronchus which could be contributing the patient's symptoms. The patient is afebrile and WBC count is normal. The patient's chest imaging findings could be chemical pneumonitis versus pneumonia. The patient was evaluated by pulmonology yesterday and recommendations are to continue supplemental oxygen and antibiotics. Continue breathing treatments and supplemental oxygen. I will follow up with any other recommendations from pulmonary team. Patient and his were counseled on tobacco smoking. = Aspiration pneumonia likely secondary to achalasia. Continue on ceftriaxone and metronidazole. //Diffusely dilated esophagus with dysphagia //Achalasia as seen on upper GI series CT of the chest also showed diffusely dilated esophagus which contains debris, and findings concerning of achalasia. GI was consulted and recommends a barium swallow this morning. N.p.o. as per speech and swallow recommendations = GI assistance appreciated. GI recommends considering IR for G-tube placement. //Hypokalemia Patient's potassium was replaced yesterday. BMP ordered for today. = Potassium 3.4. Improved after replacement. Recheck. //Hypernatremia. Sodium 147 yesterday. Has been on D5 water 60 mL an hour since yesterday. Recheck today follow. //History of ischemic CVA Continue aspirin per rectal as the patient is currently n.p.o. Repeat CT scan of the head today does not show any new acute findings. //DVT prophylaxis: Subcu heparin for DVT prophylaxis
[2018-04-29] MEDS ORDERED: KCL 20 mEq/NACL 0.45% Inj 1,000 ML IV.CONT SCH (18:45)
[2018-04-29 21:27] LABS: Anion Gap 9 meq/L (5-15); Blood Urea Nitrogen 7 mg/dL (7-18); Calcium 7.4 mg/dL (8.5-10.1); Carbon Dioxide 27.1 meq/L (21.0-32.0); Chloride 104 meq/L (98-107); Glomerular Filtration Rate Greater Than 89 mL/min (>89); Glucose,Random 100 mg/dL (74-106); Potassium 3.4 meq/L (3.5-5.1); Sodium 140 meq/L (136-145)
[2018-04-29 21:39] LABS: Total Protein 4.9 g/dL (6.4-8.2)
[2018-04-29] MEDS: Sodium Chloride 0.9% 2 ML Flush BID IV.FLUSH SCH (21:41)
[2018-04-29] MEDS: Pantoprazole Inj 40 MG Vial IV.PUSH SCH (21:42)
[2018-04-30 06:30] LABS: Baso % (Auto) 0.1 % (0.0-2.0); Eos % (Auto) 0.2 % (0.0-4.0); Hematocrit 38.2 % (39.0-51.0); Hemoglobin 12.7 gm/dL (13.0-17.0); Lymph # (Auto) 1.5 th/mm3 (1.0-4.8); Lymph % (Auto) 17.5 % (9.0-44.0); Mean Corpuscular HGB Conc 33.2 % (32.0-36.0); Mean Corpuscular Hemoglobin 27.1 pg (27.0-34.0); Mean Corpuscular Volume 81.6 fL (80.0-100.0); Mean Platelet Volume 8.1 fL (7.0-11.0); Mono # (Auto) 0.4 th/mm3 (0.0-0.9); Mono % (Auto) 4.4 % (0.0-8.0); Neut # (Auto) 6.6 th/mm3 (1.8-7.7); Neut % (Auto) 77.8 % (16.0-70.0); Platelet Count 118 th/mm3 (150-450); Red Blood Count 4.69 mil/mm3 (4.50-5.90); Red Cell Distribution Width 19.1 % (11.6-17.2); White Blood Count 8.5 th/mm3 (4.0-11.0)
[2018-04-30 07:06] LABS: Anion Gap 10 meq/L (5-15); Blood Urea Nitrogen 7 mg/dL (7-18); Carbon Dioxide 21.2 meq/L (21.0-32.0); Chloride 105 meq/L (98-107); Glomerular Filtration Rate Greater Than 89 mL/min (>89); Glucose,Random 82 mg/dL (74-106); Magnesium 1.8 mg/dL (1.5-2.5); Sodium 136 meq/L (136-145)
[2018-04-30 07:12] LABS: Potassium 4.3 meq/L (3.5-5.1)
[2018-04-30 07:15] LABS: Calcium 7.4 mg/dL (8.5-10.1)
[2018-04-30] MEDS ORDERED: SODIUM GLYCEROPHOSPHATE IV.SIG ONE (09:00)
[2018-04-30] MEDS ORDERED: SODIUM CHLOR 0.9% IV.SIG ONE (09:00)
[2018-04-30] MEDS: Heparin - SQ 10,000 UNITS/ML Vial SQ SCH (09:32)
[2018-04-30] MEDS: Aspirin 300 MG Supp RECTAL SCH (09:33)
--- NOTE | 2018-04-30 10:03 | P.PNIM ---
Subjective Interval history: Patient sleeping, wakes of her exam. Indicates again that he is without pain. Physical Exam Vital signs: Vital Signs 04/29/18 10:00 04/29/18 11:00 04/29/18 12:00 Temperature Pulse Rate 92 H 100 H 90 Respiratory Rate 20 Blood Pressure 128/92 H Pulse Oximetry 100 04/29/18 12:07 04/29/18 13:00 04/29/18 14:00 Temperature Pulse Rate 90 96 H 90 Respiratory Rate 18 Blood Pressure Pulse Oximetry 04/29/18 15:00 04/29/18 16:00 04/29/18 16:58 Temperature Pulse Rate 96 H 96 H 79 Respiratory Rate 20 18 Blood Pressure Pulse Oximetry 100 04/29/18 19:00 04/29/18 20:00 04/29/18 20:31 Temperature 98.4 F Pulse Rate 94 H 94 H 96 H Respiratory Rate 18 15 Blood Pressure 126/96 H Pulse Oximetry 100 100 04/29/18 21:00 04/29/18 22:00 04/29/18 23:00 Temperature Pulse Rate 108 H 102 H 106 H Respiratory Rate Blood Pressure Pulse Oximetry 04/29/18 23:30 04/30/18 00:00 04/30/18 01:00 Temperature 98.3 F Pulse Rate 86 112 H 118 H Respiratory Rate 18 18 Blood Pressure 124/78 Pulse Oximetry 100 04/30/18 02:00 04/30/18 03:00 04/30/18 03:49 Temperature 98.2 F Pulse Rate 116 H 114 H 105 H Respiratory Rate 18 18 Blood Pressure 114/86 Pulse Oximetry 95 04/30/18 04:00 04/30/18 04:15 04/30/18 05:00 Temperature Pulse Rate 114 H 108 H Respiratory Rate Blood Pressure 110/86 Pulse Oximetry 04/30/18 06:00 04/30/18 07:44 Temperature Pulse Rate 96 H 79 Respiratory Rate 20 Blood Pressure Pulse Oximetry Intake & Output 04/29/18 04/30/18 04/30/18 18:59 06:59 18:59 Intake Total 1200 / 1200 700 / 700 100 / 100 Output Total 400 / 400 400 / 400 Balance 800 / 800 300 / 300 100 / 100 Weight 57.3 kg Intake: IV 1200 / 1200 700 / 700 100 / 100 D5W Inj 1,000 ML @ 60 mls/hr IV 1000 / 1000 500 / 500 .CONT .[id number] [facility] Rx#:[id number] Rocephin Inj 1,000 MG In NS Inj 100 / 100 100 / 100 100 ML @ 200 mls/hr IV.SIG Q24H [facility] Rx#:[id number] Flagyl 500 MG Inj 100 ML @ 100 100 / 100 200 / 200 mls/hr IV.SIG Q8H [facility] Rx#: [id number] Oral 0 / 0 0 / 0 Output: Urine 400 / 400 400 / 400 Other: # Incontinent Voids 1 1 # Bowel Movements 0 Narrative: GENERAL: Patient sitting in bed. Nonverbal, however makes good eye contact. There is some blood from oral suction. SKIN: Warm and dry. HEAD: Normocephalic. EYES: No scleral icterus. No injection or drainage. NECK: Supple, trachea midline. No JVD. CARDIOVASCULAR: Regular rate and rhythm without murmurs, gallops, or rubs. RESPIRATORY: Breath sounds equal bilaterally. No accessory muscle use. GASTROINTESTINAL: Abdomen soft, non-tender, nondistended. MUSCULOSKELETAL: No cyanosis, or edema. BACK: Nontender without obvious deformity. No CVA tenderness. Results - Labs CBC & Chem 7: 04/30/18 05:21 04/30/18 05:21 Laboratory Results - last 24 hr 04/29/18 04/30/18 04/30/18 20:05 05:21 05:21 WBC 8.5 RBC 4.69 Hgb 12.7 L Hct 38.2 L MCV 81.6 MCH 27.1 MCHC 33.2 RDW 19.1 H Plt Count 118 L MPV 8.1 Prelim Diff (Auto) Slide review pending Neut % (Auto) 77.8 H Lymph % (Auto) 17.5 [place] % (Auto) 4.4 Eos % (Auto) 0.2 Baso % (Auto) 0.1 Neut # (Auto) 6.6 Lymph # (Auto) 1.5 [place] # (Auto) 0.4 Eos # (Auto) 0.0 Baso # (Auto) 0.0 Differential Comment . Sodium 140 136 Potassium 3.4 L 4.3 D Chloride 104 105 Carbon Dioxide 27.1 21.2 Anion Gap 9 10 BUN 7 7 Creatinine 0.54 L 0.51 L Estimated GFR Greater than 89 Greater than 89 Random Glucose 100 82 Calcium 7.4 L* 7.4 L* Prot Corrected Calcium 8.6 Phosphorus 1.0 L Magnesium 1.8 Total Protein 4.9 L D Albumin 2.0 L Assessment and Plan - Plan This patient is a 57-year-old male with a diagnosis of gastroesophageal reflux disease, history of ischemic CVA with right-sided hemiparesis. The patient presented to our emergency department today accompanied by his significant other who says that over the past 1 month the patient has had some dysphagia, and has been coughing over the past week. He has an extensive tobacco smoking history and has been smoking nearly 2 packs of cigarettes per day since the age of 18. He has not been able to tolerate a p.o. diet over the past week and his significant other was concerned and so she brought him into the emergency department today. In the ER he was found to be hypoxic and coughing. At baseline the patient can say yes or no otherwise he does not communicate very well. As per the emergency department physician notes when EMS arrived to his house there was feces on the patient's bed, blankets, and bugs all over the patient as well as as a significant other. She denies any fevers or chills, no chest pain, no diarrhea. //Acute hypoxic hypercapnic respiratory failure likely secondary to aspiration //Tobacco abuse Patient presented with the symptoms mentioned above. CTA of the chest is negative for pulmonary embolus however shows debris is in the right mainstem bronchus which could be contributing the patient's symptoms. The patient is afebrile and WBC count is normal. The patient's chest imaging findings could be chemical pneumonitis versus pneumonia. The patient was evaluated by pulmonology yesterday and recommendations are to continue supplemental oxygen and antibiotics. Continue breathing treatments and supplemental oxygen. I will follow up with any other recommendations from pulmonary team. Patient and his were counseled on tobacco smoking. = Aspiration pneumonia likely secondary to achalasia. Continue on ceftriaxone and metronidazole. //Diffusely dilated esophagus with dysphagia //Achalasia as seen on upper GI series CT of the chest also showed diffusely dilated esophagus which contains debris, and findings concerning of achalasia. GI was consulted and recommends a barium swallow this morning. N.p.o. as per speech and swallow recommendations = GI assistance appreciated. GI recommends considering IR for G-tube placement. = 04/30. Plan for EGD when consent performed. Appreciate GI assistance. Patient would also benefit from PEG tube for nutrition. //Hypokalemia Patient's potassium was replaced yesterday. BMP ordered for today. = Potassium 3.4. Improved after replacement. Recheck. = Resolved after replacement. Monitor. //Hypernatremia. Sodium 147 yesterday. Has been on D5 water 60 mL an hour since yesterday. Recheck today follow. = Sodium 136 today from 140 yesterday. Will start back on normal saline and monitor. //History of ischemic CVA Continue aspirin per rectal as the patient is currently n.p.o. Repeat CT scan of the head today does not show any new acute findings. //Hypophosphatemia. 1.0. Could be related to patient's episode of nonsustained ventricular tachycardia. Replace and monitor. //Nonsustained ventricular tachycardia. 8 beats of V. tach reported today. Will replace phosphorus and monitor on telemetry. //DVT prophylaxis: Subcu heparin for DVT prophylaxis Discharge Planning: DCF following Pending GI workup for achalasia as well as addressing nutrition status.
[2018-04-30 10:04] LABS: Lymphocytes 15 % (9-44); Platelet Morphology Normal (Normal); RBC Morphology Normal (Normal)
--- NOTE | 2018-04-30 10:17 | P.PN ---
Subjective Interval history: alert nad minor hemoptysis Physical Exam Vital signs: Vital Signs 04/29/18 11:00 04/29/18 12:00 04/29/18 12:07 Temperature Pulse Rate 100 H 90 90 Respiratory Rate 20 18 Blood Pressure 128/92 H Pulse Oximetry 100 04/29/18 13:00 04/29/18 14:00 04/29/18 15:00 Temperature Pulse Rate 96 H 90 96 H Respiratory Rate Blood Pressure Pulse Oximetry 04/29/18 16:00 04/29/18 16:58 04/29/18 19:00 Temperature Pulse Rate 96 H 79 94 H Respiratory Rate 20 18 Blood Pressure Pulse Oximetry 100 04/29/18 20:00 04/29/18 20:31 04/29/18 21:00 Temperature 98.4 F Pulse Rate 94 H 96 H 108 H Respiratory Rate 18 15 Blood Pressure 126/96 H Pulse Oximetry 100 100 04/29/18 22:00 04/29/18 23:00 04/29/18 23:30 Temperature Pulse Rate 102 H 106 H 86 Respiratory Rate 18 Blood Pressure Pulse Oximetry 04/30/18 00:00 04/30/18 01:00 04/30/18 02:00 Temperature 98.3 F Pulse Rate 112 H 118 H 116 H Respiratory Rate 18 Blood Pressure 124/78 Pulse Oximetry 100 04/30/18 03:00 04/30/18 03:49 04/30/18 04:00 Temperature 98.2 F Pulse Rate 114 H 105 H 114 H Respiratory Rate 18 18 Blood Pressure 114/86 Pulse Oximetry 95 04/30/18 04:15 04/30/18 05:00 04/30/18 06:00 Temperature Pulse Rate 108 H 96 H Respiratory Rate Blood Pressure 110/86 Pulse Oximetry 04/30/18 07:44 Temperature Pulse Rate 79 Respiratory Rate 20 Blood Pressure Pulse Oximetry Intake & Output 04/29/18 04/30/18 04/30/18 18:59 06:59 18:59 Intake Total 1200 / 1200 700 / 700 100 / 100 Output Total 400 / 400 400 / 400 Balance 800 / 800 300 / 300 100 / 100 Weight 57.3 kg Intake: IV 1200 / 1200 700 / 700 100 / 100 D5W Inj 1,000 ML @ 60 mls/hr IV 1000 / 1000 500 / 500 .CONT .[id number] [facility] Rx#:[id number] Rocephin Inj 1,000 MG In NS Inj 100 / 100 100 / 100 100 ML @ 200 mls/hr IV.SIG Q24H [facility] Rx#:[id number] Flagyl 500 MG Inj 100 ML @ 100 100 / 100 200 / 200 mls/hr IV.SIG Q8H [facility] Rx#: [id number] Oral 0 / 0 0 / 0 Output: Urine 400 / 400 400 / 400 Other: # Incontinent Voids 1 1 # Bowel Movements 0 Narrative: GENERAL: Patient sitting in bed. Nonverbal, however makes good eye contact. There is some blood from oral suction. SKIN: Warm and dry. HEAD: Normocephalic. EYES: No scleral icterus. No injection or drainage. NECK: Supple, trachea midline. No JVD. CARDIOVASCULAR: Regular rate and rhythm without murmurs, gallops, or rubs. RESPIRATORY: Breath sounds equal bilaterally. No accessory muscle use. GASTROINTESTINAL: Abdomen soft, non-tender, nondistended. MUSCULOSKELETAL: No cyanosis, or edema. BACK: Nontender without obvious deformity. No CVA tenderness. Results - Labs CBC & Chem 7: 04/30/18 05:21 04/30/18 05:21 Laboratory Results - last 24 hr 04/29/18 04/30/18 04/30/18 20:05 05:21 05:21 WBC 8.5 RBC 4.69 Hgb 12.7 L Hct 38.2 L MCV 81.6 MCH 27.1 MCHC 33.2 RDW 19.1 H Plt Count 118 L MPV 8.1 Prelim Diff (Auto) Slide review pending Neut % (Auto) 77.8 H Lymph % (Auto) 17.5 [place] % (Auto) 4.4 Eos % (Auto) 0.2 Baso % (Auto) 0.1 Neut # (Auto) 6.6 Lymph # (Auto) 1.5 [place] # (Auto) 0.4 Eos # (Auto) 0.0 Baso # (Auto) 0.0 WBC Differential Manual diff final Seg Neuts % (Manual) 78 H Band Neuts % (Manual) 7 H Lymphocytes % (Manual) 15 Abs Neuts (Manual) 7.2 Differential Comment . Platelet Estimate Low L Platelet Morphology Normal RBC Morphology Normal Sodium 140 136 Potassium 3.4 L 4.3 D Chloride 104 105 Carbon Dioxide 27.1 21.2 Anion Gap 9 10 BUN 7 7 Creatinine 0.54 L 0.51 L Estimated GFR Greater than 89 Greater than 89 Random Glucose 100 82 Calcium 7.4 L* 7.4 L* Prot Corrected Calcium 8.6 Phosphorus 1.0 L Magnesium 1.8 Total Protein 4.9 L D Albumin 2.0 L Assessment and Plan - Plan impression Hemoptysis respiratory failure pneumonia due to recurrent aspiration oesophageal dilitation S/P CVA HYPERBILIRUBINEMIA plan o2 as needed pulmonary toilet bronchoscopy , when able to get consent
[2018-04-30] MEDS: Sod Chloride 0.9% Inj 1,000 ML IV.CONT SCH ×2 (10:51→20:46)
--- NOTE | 2018-04-30 11:19 | XR ---
EXAM DATE: 04/30/2018 12:00 AM EDT AGE/SEX: 57 years / Male INDICATIONS: Respiratory disease. CLINICAL DATA: This is the patient's subsequent encounter. Patient reports that signs and symptoms h ave been present for 1 week and indicates a pain score of Nonresponsive. MEDICAL/SURGICAL HISTORY: Non-responsive. Non-responsive. COMPARISON: No prior exams available for comparison. FINDINGS: There is airspace consolidation right lower lobe suspicious for pneumonia. Heart and mediastinum are unremarkable for technique. CONCLUSION: Right lower lobe pneumonia. Electronically signed by: Paulette Sheriff MD 04/30/2018 11:17 AM EDT
[2018-04-30] MEDS: Sodium Chloride 0.9% 2 ML Flush BID IV.FLUSH SCH ×2 (11:57→20:45)
[2018-04-30 12:47] LABS: INR 1.3 Ratio; Prothrombin Time 12.9 sec (9.8-11.6)
--- NOTE | 2018-04-30 13:45 | P.PNGI ---
Subjective Interval history: Abdominal pain, generalized weakness no current nausea vomiting Plan for EGD today PEG tube placement <CyrusShayna M - Last Filed: 04/30/18 13:41> Physical Exam Vital signs: Vital Signs 04/29/18 14:00 04/29/18 15:00 04/29/18 16:00 Temperature Pulse Rate 90 96 H 96 H Respiratory Rate 20 Blood Pressure Pulse Oximetry 100 04/29/18 16:58 04/29/18 19:00 04/29/18 20:00 Temperature 98.4 F Pulse Rate 79 94 H 94 H Respiratory Rate 18 18 Blood Pressure 126/96 H Pulse Oximetry 100 04/29/18 20:31 04/29/18 21:00 04/29/18 22:00 Temperature Pulse Rate 96 H 108 H 102 H Respiratory Rate 15 Blood Pressure Pulse Oximetry 100 04/29/18 23:00 04/29/18 23:30 04/30/18 00:00 Temperature 98.3 F Pulse Rate 106 H 86 112 H Respiratory Rate 18 18 Blood Pressure 124/78 Pulse Oximetry 100 04/30/18 01:00 04/30/18 02:00 04/30/18 03:00 Temperature 98.2 F Pulse Rate 118 H 116 H 114 H Respiratory Rate 18 Blood Pressure 114/86 Pulse Oximetry 95 04/30/18 03:49 04/30/18 04:00 04/30/18 04:15 Temperature Pulse Rate 105 H 114 H Respiratory Rate 18 Blood Pressure 110/86 Pulse Oximetry 04/30/18 05:00 04/30/18 06:00 04/30/18 07:00 Temperature Pulse Rate 108 H 96 H 108 H Respiratory Rate Blood Pressure Pulse Oximetry 04/30/18 07:44 04/30/18 08:00 04/30/18 09:00 Temperature 98.9 F Pulse Rate 79 106 H 102 H Respiratory Rate 20 20 Blood Pressure 129/92 H Pulse Oximetry 98 04/30/18 10:00 04/30/18 11:00 04/30/18 12:00 Temperature 98.1 F Pulse Rate 100 H 104 H 100 H Respiratory Rate 20 Blood Pressure 125/75 Pulse Oximetry 98 04/30/18 12:11 04/30/18 13:00 Temperature Pulse Rate 79 98 H Respiratory Rate 16 Blood Pressure Pulse Oximetry Intake & Output 04/29/18 04/30/18 04/30/18 18:59 06:59 18:59 Intake Total 1200 / 1200 700 / 700 1000 / 1000 Output Total 400 / 400 400 / 400 Balance 800 / 800 300 / 300 1000 / 1000 Weight 57.3 kg Intake: IV 1200 / 1200 700 / 700 1000 / 1000 D5W Inj 1,000 ML @ 60 mls/hr IV 1000 / 1000 500 / 500 .CONT .[id number] [facility] Rx#:[id number] Potassium Chlor 20 mEq/NACL 0. 800 / 800 45% Inj 1,000 ML @ 60 mls/hr IV .CONT .[id number] [facility] Rx#:[id number] Rocephin Inj 1,000 MG In NS Inj 100 / 100 100 / 100 100 ML @ 200 mls/hr IV.SIG Q24H [facility] Rx#:[id number] Flagyl 500 MG Inj 100 ML @ 100 100 / 100 200 / 200 100 / 100 mls/hr IV.SIG Q8H [facility] Rx#: [id number] Oral 0 / 0 0 / 0 Output: Urine 400 / 400 400 / 400 Other: # Incontinent Voids 1 1 # Bowel Movements 0 - Constitutional no acute distress, thin, cachectic - Routine HEENT Exam ENT: Present: mucous membranes moist - Routine Respiratory Exam Present: accessory muscle use, distant breath sounds (Even, unlabored at rest) - Routine Abdominal Exam Present: soft (Flat, soft bowel sounds) <Shayna Chase - Last Filed: 04/30/18 13:41> Vital signs: Vital Signs 04/30/18 00:00 04/30/18 01:00 04/30/18 02:00 Temperature 98.3 F Pulse Rate 112 H 118 H 116 H Respiratory Rate 18 Blood Pressure 124/78 Pulse Oximetry 100 04/30/18 03:00 04/30/18 03:49 04/30/18 04:00 Temperature 98.2 F Pulse Rate 114 H 105 H 114 H Respiratory Rate 18 18 Blood Pressure 114/86 Pulse Oximetry 95 04/30/18 04:15 04/30/18 05:00 04/30/18 06:00 Temperature Pulse Rate 108 H 96 H Respiratory Rate Blood Pressure 110/86 Pulse Oximetry 04/30/18 07:00 04/30/18 07:44 04/30/18 08:00 Temperature 98.9 F Pulse Rate 108 H 79 106 H Respiratory Rate 20 20 Blood Pressure 129/92 H Pulse Oximetry 98 04/30/18 09:00 04/30/18 10:00 04/30/18 11:00 Temperature Pulse Rate 102 H 100 H 104 H Respiratory Rate Blood Pressure Pulse Oximetry 04/30/18 12:00 04/30/18 12:11 04/30/18 13:00 Temperature 98.1 F Pulse Rate 100 H 79 98 H Respiratory Rate 20 16 Blood Pressure 125/75 Pulse Oximetry 98 04/30/18 14:00 04/30/18 15:00 04/30/18 16:00 Temperature Pulse Rate 100 H 100 H 85 Respiratory Rate 18 Blood Pressure 115/64 Pulse Oximetry 98 04/30/18 17:00 04/30/18 17:15 04/30/18 17:30 Temperature Pulse Rate 88 90 88 Respiratory Rate 18 18 18 Blood Pressure 114/75 118/79 116/82 Pulse Oximetry 100 100 100 04/30/18 17:45 04/30/18 18:00 04/30/18 18:15 Temperature Pulse Rate 88 88 98 H Respiratory Rate 18 18 18 Blood Pressure 115/76 129/87 145/97 H Pulse Oximetry 100 100 100 04/30/18 18:30 04/30/18 18:45 04/30/18 19:00 Temperature Pulse Rate 99 H 100 H 99 H Respiratory Rate 18 18 18 Blood Pressure 146/95 H 141/99 H 141/96 H Pulse Oximetry 100 100 100 04/30/18 19:30 Temperature Pulse Rate Respiratory Rate Blood Pressure Pulse Oximetry 98 Intake & Output 04/30/18 04/30/18 05/01/18 06:59 18:59 06:59 Intake Total 700 / 700 1550 / 1550 900 / 900 Output Total 400 / 400 300 / 300 Balance 300 / 300 1250 / 1250 900 / 900 Weight 57.3 kg Intake: IV 700 / 700 1250 / 1250 900 / 900 D5W Inj 1,000 ML @ 60 mls/hr IV 500 / 500 .CONT .[id number] [facility] Rx#:[id number] Potassium Chlor 20 mEq/NACL 0. 800 / 800 45% Inj 1,000 ML @ 60 mls/hr IV .CONT .[id number] [facility] Rx#:[id number] NS Inj 1,000 ML @ 84 mls/hr IV. 800 / 800 CONT .[id number] [facility] Rx#:[id number] Glycophos 30 Mmol In NS Inj 220 250 / 250 ML @ 38.462 mls/hr IV.SIG ONCE ONE Rx#:[id number] Rocephin Inj 1,000 MG In NS Inj 100 / 100 100 ML @ 200 mls/hr IV.SIG Q24H [facility] Rx#:[id number] Flagyl 500 MG Inj 100 ML @ 100 200 / 200 100 / 100 100 / 100 mls/hr IV.SIG Q8H [facility] Rx#: [id number] Oral 0 / 0 0 / 0 Anesthesia Amount 300 / 300 Output: Urine 400 / 400 300 / 300 Other: # Incontinent Voids 1 # Bowel Movements 0 <Nicholas Ruiz E - Last Filed: 04/30/18 23:40> Results - Labs CBC & Chem 7: 04/30/18 05:21 04/30/18 05:21 Laboratory Results - last 24 hr 04/29/18 04/30/18 04/30/18 20:05 05:21 05:21 WBC 8.5 RBC 4.69 Hgb 12.7 L Hct 38.2 L MCV 81.6 MCH 27.1 MCHC 33.2 RDW 19.1 H Plt Count 118 L MPV 8.1 Prelim Diff (Auto) Slide review pending Neut % (Auto) 77.8 H Lymph % (Auto) 17.5 [place] % (Auto) 4.4 Eos % (Auto) 0.2 Baso % (Auto) 0.1 Neut # (Auto) 6.6 Lymph # (Auto) 1.5 [place] # (Auto) 0.4 Eos # (Auto) 0.0 Baso # (Auto) 0.0 WBC Differential Manual diff final Seg Neuts % (Manual) 78 H Band Neuts % (Manual) 7 H Lymphocytes % (Manual) 15 Abs Neuts (Manual) 7.2 Differential Comment . Platelet Estimate Low L Platelet Morphology Normal RBC Morphology Normal PT INR Sodium 140 136 Potassium 3.4 L 4.3 D Chloride 104 105 Carbon Dioxide 27.1 21.2 Anion Gap 9 10 BUN 7 7 Creatinine 0.54 L 0.51 L Estimated GFR Greater than 89 Greater than 89 Random Glucose 100 82 Calcium 7.4 L* 7.4 L* Prot Corrected Calcium 8.6 Phosphorus 1.0 L Magnesium 1.8 Total Protein 4.9 L D Albumin 2.0 L 04/30/18 11:21 WBC RBC Hgb Hct MCV MCH MCHC RDW Plt Count MPV Prelim Diff (Auto) Neut % (Auto) Lymph % (Auto) [place] % (Auto) Eos % (Auto) Baso % (Auto) Neut # (Auto) Lymph # (Auto) [place] # (Auto) Eos # (Auto) Baso # (Auto) WBC Differential Seg Neuts % (Manual) Band Neuts % (Manual) Lymphocytes % (Manual) Abs Neuts (Manual) Differential Comment Platelet Estimate Platelet Morphology RBC Morphology PT 12.9 H INR 1.3 Sodium Potassium Chloride Carbon Dioxide Anion Gap BUN Creatinine Estimated GFR Random Glucose Calcium Prot Corrected Calcium Phosphorus Magnesium Total Protein Albumin - Imaging Impressions Chest X-Ray 04/30/18 00:00 CONCLUSION: Right lower lobe pneumonia. <Shayna Chase - Last Filed: 04/30/18 13:41> - Labs CBC & Chem 7: 04/30/18 05:21 04/30/18 05:21 Laboratory Results - last 24 hr 04/30/18 04/30/18 04/30/18 05:21 05:21 11:21 WBC 8.5 RBC 4.69 Hgb 12.7 L Hct 38.2 L MCV 81.6 MCH 27.1 MCHC 33.2 RDW 19.1 H Plt Count 118 L MPV 8.1 Prelim Diff (Auto) Slide review pending Neut % (Auto) 77.8 H Lymph % (Auto) 17.5 [place] % (Auto) 4.4 Eos % (Auto) 0.2 Baso % (Auto) 0.1 Neut # (Auto) 6.6 Lymph # (Auto) 1.5 [place] # (Auto) 0.4 Eos # (Auto) 0.0 Baso # (Auto) 0.0 WBC Differential Manual diff final Seg Neuts % (Manual) 78 H Band Neuts % (Manual) 7 H Lymphocytes % (Manual) 15 Abs Neuts (Manual) 7.2 Differential Comment . Platelet Estimate Low L Platelet Morphology Normal RBC Morphology Normal PT 12.9 H INR 1.3 Sodium 136 Potassium 4.3 D Chloride 105 Carbon Dioxide 21.2 Anion Gap 10 BUN 7 Creatinine 0.51 L Estimated GFR Greater than 89 Random Glucose 82 Calcium 7.4 L* Phosphorus 1.0 L Magnesium 1.8 Albumin 2.0 L - Imaging Impressions Chest X-Ray 04/30/18 00:00 CONCLUSION: Right lower lobe pneumonia. <Nicholas Ruiz - Last Filed: 04/30/18 23:40> Assessment and Plan - Plan Initial plan for EGD with gastric tube placement today for long-term nutritional needs. Possible achalasia seen on CT scan, upper GI series reviewed Initially patient's friend, POA was not here this morning and no consent was signed POA did come and sign consent and give a copy of her POA to the nurse for the records Plan was for EGD today with gastric tube placement Monitor labs, further recommendations to follow Patient was seen per myself and Dr. Ruiz, note was written on his behalf <Shayna Chase - Last Filed: 04/30/18 13:41> - Plan Patient seen and examined Agree with above history and physical Continue with current supportive care Monitor labs Plan for EGD with possible PEG placement today <Nicholas Ruiz - Last Filed: 04/30/18 23:40>
[2018-04-30] MEDS ORDERED: Phenylephrine/NS 1000 MCG/10ML Syringe IV.PUSH ONE (15:58)
[2018-04-30] MEDS ORDERED: Lidocaine PF 1% Inj 5 ML Syringe OTHER ONE (15:58)
--- NOTE | 2018-04-30 16:30 | P.PCN ---
Date of procedure: 04/30/18 Pre-op diagnosis: Dysphagia, esophageal stricture as evidenced on x-rays Procedure: PROCEDURE PERFORMED Basically an esophagoscopy only PROCEDURE: The procedure, risks and benefits were discussed with Patient/POA and informed consent was obtained. Anesthesia sedated Patient with Diprivan. Patient was placed in the left lateral decubitus position. EGD: The Pentax videoscope was introduced through the oropharynx and advanced to the mid esophagus. FINDINGS: The esophagus there was areas of friability and small ulcerations noted in the esophagus which led to a severely strictured esophagus barely a pinpoint opening was seen there were also clots noted in the lumen that I was able to remove these resulted from those little ulcerations but no active bleeding no visible vessel was seen and I was unable to advance the scope further ESTIMATED BLOOD LOSS: None from the procedure SPECIMENS REMOVED: None COMPLICATIONS: None IMPRESSION: Severe esophagitis with resulting severe esophageal stricture PLAN: There is no way this gentleman can have anything orally at this point and therefore will ask IR to proceed with PEG placement Patient will need to be on a proton pump inhibitor such as Protonix 40 mg twice daily Avoid anticoagulation at this point at least for a few days while the esophagitis heals Consideration can be made at some point in the future to potentially dilate although I think he will most likely end up needing an esophagectomy The case to be discussed further so is to make the best decision for this gentleman Patient shall remain n.p.o. Anesthesia: MAC Surgeon: Nicholas Ruiz Condition: stable Disposition: floor
[2018-04-30] MEDS: Pantoprazole Inj 40 MG Vial IV.PUSH SCH (20:44)
[2018-05-01] MEDS: Sod Chloride 0.9% Inj 1,000 ML IV.CONT SCH ×2 (00:55→09:01)
[2018-05-01 06:20] LABS: Baso % (Auto) 0.1 % (0.0-2.0); Eos % (Auto) 0.2 % (0.0-4.0); Hematocrit 37.8 % (39.0-51.0); Hemoglobin 12.4 gm/dL (13.0-17.0); Lymph # (Auto) 1.5 th/mm3 (1.0-4.8); Lymph % (Auto) 17.2 % (9.0-44.0); Mean Corpuscular HGB Conc 32.7 % (32.0-36.0); Mean Corpuscular Hemoglobin 26.7 pg (27.0-34.0); Mean Corpuscular Volume 81.7 fL (80.0-100.0); Mean Platelet Volume 8.9 fL (7.0-11.0); Mono # (Auto) 0.3 th/mm3 (0.0-0.9); Mono % (Auto) 3.4 % (0.0-8.0); Neut % (Auto) 79.1 % (16.0-70.0); Platelet Count 96 th/mm3 (150-450); Red Blood Count 4.63 mil/mm3 (4.50-5.90); Red Cell Distribution Width 18.5 % (11.6-17.2); White Blood Count 8.8 th/mm3 (4.0-11.0)
[2018-05-01 06:53] LABS: Albumin 2.2 g/dL (3.4-5.0); Anion Gap 10 meq/L (5-15); Blood Urea Nitrogen 9 mg/dL (7-18); Carbon Dioxide 23.6 meq/L (21.0-32.0); Chloride 105 meq/L (98-107); Glomerular Filtration Rate Greater Than 89 mL/min (>89); Glucose,Random 83 mg/dL (74-106); Magnesium 1.8 mg/dL (1.5-2.5); Phosphorus 1.5 mg/dL (2.5-4.9); Potassium 3.7 meq/L (3.5-5.1); Sodium 139 meq/L (136-145)
[2018-05-01 06:59] LABS: Calcium 7.3 mg/dL (8.5-10.1)
[2018-05-01 08:30] LABS: Platelet Morphology Normal (Normal)
[2018-05-01] MEDS: Aspirin 300 MG Supp RECTAL SCH (09:02)
[2018-05-01] MEDS: Sodium Chloride 0.9% 2 ML Flush BID IV.FLUSH SCH ×2 (09:02→21:00)
--- NOTE | 2018-05-01 11:39 | P.PNIM ---
Subjective Interval history: Patient denies any pain as before. Discussed with Chapis power of record producer at bedside. Physical Exam Vital signs: Vital Signs 04/30/18 12:00 04/30/18 12:11 04/30/18 13:00 Temperature 98.1 F Pulse Rate 100 H 79 98 H Respiratory Rate 20 16 Blood Pressure 125/75 Pulse Oximetry 98 04/30/18 14:00 04/30/18 15:00 04/30/18 16:00 Temperature Pulse Rate 100 H 100 H 85 Respiratory Rate 18 Blood Pressure 115/64 Pulse Oximetry 98 04/30/18 17:00 04/30/18 17:15 04/30/18 17:30 Temperature Pulse Rate 88 90 88 Respiratory Rate 18 18 18 Blood Pressure 114/75 118/79 116/82 Pulse Oximetry 100 100 100 04/30/18 17:45 04/30/18 18:00 04/30/18 18:15 Temperature Pulse Rate 88 88 98 H Respiratory Rate 18 18 18 Blood Pressure 115/76 129/87 145/97 H Pulse Oximetry 100 100 100 04/30/18 18:30 04/30/18 18:45 04/30/18 19:00 Temperature Pulse Rate 99 H 100 H 101 H Respiratory Rate 18 18 18 Blood Pressure 146/95 H 141/99 H 141/96 H Pulse Oximetry 100 100 100 04/30/18 19:30 04/30/18 20:00 04/30/18 21:00 Temperature 98.2 F Pulse Rate 94 H 86 Respiratory Rate 18 Blood Pressure 113/81 Pulse Oximetry 98 97 04/30/18 22:00 04/30/18 23:00 05/01/18 00:00 Temperature 98.0 F Pulse Rate 82 89 74 Respiratory Rate 16 Blood Pressure 127/97 H Pulse Oximetry 99 05/01/18 01:00 05/01/18 02:00 05/01/18 03:00 Temperature 97.6 F Pulse Rate 94 H 84 92 H Respiratory Rate 14 Blood Pressure 137/94 H Pulse Oximetry 100 05/01/18 04:00 05/01/18 05:00 05/01/18 06:00 Temperature Pulse Rate 99 H 105 H 106 H Respiratory Rate Blood Pressure Pulse Oximetry 05/01/18 07:00 05/01/18 08:00 05/01/18 09:00 Temperature 97.8 F Pulse Rate 101 H 108 H 104 H Respiratory Rate 20 Blood Pressure 136/96 H Pulse Oximetry 95 95 05/01/18 10:00 05/01/18 11:00 Temperature Pulse Rate 92 H 103 H Respiratory Rate Blood Pressure Pulse Oximetry Intake & Output 04/30/18 05/01/18 05/01/18 18:59 06:59 18:59 Intake Total 1550 / 1550 1000 / 1000 1200 / 1200 Output Total 300 / 300 300 / 300 Balance 1250 / 1250 700 / 700 1200 / 1200 Weight 57.4 kg Intake: IV 1250 / 1250 1000 / 1000 1200 / 1200 Potassium Chlor 20 mEq/NACL 0. 800 / 800 45% Inj 1,000 ML @ 60 mls/hr IV .CONT .[id number] [facility] Rx#:[id number] NS Inj 1,000 ML @ 84 mls/hr IV. 800 / 800 1000 / 1000 CONT .[id number] [facility] Rx#:[id number] Glycophos 30 Mmol In NS Inj 220 250 / 250 ML @ 38.462 mls/hr IV.SIG ONCE ONE Rx#:[id number] Rocephin Inj 1,000 MG In NS Inj 100 / 100 100 / 100 100 ML @ 200 mls/hr IV.SIG Q24H [facility] Rx#:[id number] Flagyl 500 MG Inj 100 ML @ 100 100 / 100 200 / 200 100 / 100 mls/hr IV.SIG Q8H [facility] Rx#: [id number] Oral 0 / 0 0 / 0 Anesthesia Amount 300 / 300 Output: Urine 300 / 300 300 / 300 Narrative: GENERAL: Patient sitting in bed. Nonverbal, however makes good eye contact. No bleeding today. SKIN: Warm and dry. HEAD: Normocephalic. EYES: No scleral icterus. No injection or drainage. NECK: Supple, trachea midline. No JVD. CARDIOVASCULAR: Regular rate and rhythm without murmurs, gallops, or rubs. RESPIRATORY: Breath sounds equal bilaterally. No accessory muscle use. GASTROINTESTINAL: Abdomen soft, non-tender, nondistended. MUSCULOSKELETAL: No cyanosis, or edema. BACK: Nontender without obvious deformity. No CVA tenderness. Results - Labs CBC & Chem 7: 05/01/18 05:35 05/01/18 05:35 Laboratory Results - last 24 hr 04/30/18 05/01/18 05/01/18 11:21 05:35 05:35 WBC 8.8 RBC 4.63 Hgb 12.4 L Hct 37.8 L MCV 81.7 MCH 26.7 L MCHC 32.7 RDW 18.5 H Plt Count 96 L MPV 8.9 Prelim Diff (Auto) Slide review pending Neut % (Auto) 79.1 H Lymph % (Auto) 17.2 [place] % (Auto) 3.4 Eos % (Auto) 0.2 Baso % (Auto) 0.1 Neut # (Auto) 7.0 Lymph # (Auto) 1.5 [place] # (Auto) 0.3 Eos # (Auto) 0.0 Baso # (Auto) 0.0 WBC Differential . Diff Scan Auto diff confirmed Differential Comment . Platelet Estimate Low L Platelet Morphology Normal PT 12.9 H INR 1.3 Sodium 139 Potassium 3.7 Chloride 105 Carbon Dioxide 23.6 Anion Gap 10 BUN 9 Creatinine 0.46 L Estimated GFR Greater than 89 Random Glucose 83 Calcium 7.3 L* Phosphorus 1.5 L Magnesium 1.8 Albumin 2.2 L Assessment and Plan - Plan This patient is a 57-year-old male with a diagnosis of gastroesophageal reflux disease, history of ischemic CVA with right-sided hemiparesis. The patient presented to our emergency department today accompanied by his significant other who says that over the past 1 month the patient has had some dysphagia, and has been coughing over the past week. He has an extensive tobacco smoking history and has been smoking nearly 2 packs of cigarettes per day since the age of 18. He has not been able to tolerate a p.o. diet over the past week and his significant other was concerned and so she brought him into the emergency department today. In the ER he was found to be hypoxic and coughing. At baseline the patient can say yes or no otherwise he does not communicate very well. As per the emergency department physician notes when EMS arrived to his house there was feces on the patient's bed, blankets, and bugs all over the patient as well as as a significant other. She denies any fevers or chills, no chest pain, no diarrhea. //Acute hypoxic hypercapnic respiratory failure likely secondary to aspiration //Tobacco abuse Patient presented with the symptoms mentioned above. CTA of the chest is negative for pulmonary embolus however shows debris is in the right mainstem bronchus which could be contributing the patient's symptoms. The patient is afebrile and WBC count is normal. The patient's chest imaging findings could be chemical pneumonitis versus pneumonia. The patient was evaluated by pulmonology yesterday and recommendations are to continue supplemental oxygen and antibiotics. Continue breathing treatments and supplemental oxygen. I will follow up with any other recommendations from pulmonary team. Patient and his were counseled on tobacco smoking. = Aspiration pneumonia likely secondary to achalasia. Continue on ceftriaxone and metronidazole. //Diffusely dilated esophagus with dysphagia //Achalasia as seen on upper GI series CT of the chest also showed diffusely dilated esophagus which contains debris, and findings concerning of achalasia. GI was consulted and recommends a barium swallow this morning. N.p.o. as per speech and swallow recommendations = GI assistance appreciated. GI recommends considering IR for G-tube placement. = 04/30. Plan for EGD when consent performed. Appreciate GI assistance. Patient would also benefit from PEG tube for nutrition. = 05/01. EGD yesterday with severe achalasia unable to take p.o. PEG tube to be placed tomorrow. Hold aspirin. //Hypokalemia Patient's potassium was replaced yesterday. BMP ordered for today. = Potassium 3.4. Improved after replacement. Recheck. = Resolved after replacement. Monitor. //Hypernatremia. = Resolved. Continue normal saline for now. //History of ischemic CVA Continue aspirin per rectal as the patient is currently n.p.o. Repeat CT scan of the head today does not show any new acute findings. //Hypophosphatemia. 1.0. Could be related to patient's episode of nonsustained ventricular tachycardia. Replace and monitor. = 05/01. Phosphorus 1.5. rePlace. //Nonsustained ventricular tachycardia. 8 beats of V. tach reported today. Will replace phosphorus and monitor on telemetry. //DVT prophylaxis: Subcu heparin for DVT prophylaxis Discharge Planning: DCF following Pending GI workup for achalasia as well as addressing nutrition status. = We will need PEG tube
[2018-05-01] MEDS: KCL 30 mEq/D5W/NaCl 0.45% Inj 1,000 ML IV.CONT SCH (12:37)
[2018-05-01] MEDS ORDERED: Potassium Phosphate Inj 15 MMOL in Sodium Chlor 0.9% Inj 150 ML IV.SIG ONE (13:00)
--- NOTE | 2018-05-01 15:17 | P.PNGI ---
Subjective Interval history: Patient laying supine in bed with eyes closed awakens easily. Denies abdominal pain N.p.o. <Alessandra Blas - Last Filed: 05/01/18 15:12> Physical Exam Vital signs: Vital Signs 04/30/18 16:00 04/30/18 17:00 04/30/18 17:15 Temperature Pulse Rate 85 88 90 Respiratory Rate 18 18 18 Blood Pressure 115/64 114/75 118/79 Pulse Oximetry 98 100 100 04/30/18 17:30 04/30/18 17:45 04/30/18 18:00 Temperature Pulse Rate 88 88 88 Respiratory Rate 18 18 18 Blood Pressure 116/82 115/76 129/87 Pulse Oximetry 100 100 100 04/30/18 18:15 04/30/18 18:30 04/30/18 18:45 Temperature Pulse Rate 98 H 99 H 100 H Respiratory Rate 18 18 18 Blood Pressure 145/97 H 146/95 H 141/99 H Pulse Oximetry 100 100 100 04/30/18 19:00 04/30/18 19:30 04/30/18 20:00 Temperature 98.2 F Pulse Rate 101 H 94 H Respiratory Rate 18 18 Blood Pressure 141/96 H 113/81 Pulse Oximetry 100 98 97 04/30/18 21:00 04/30/18 22:00 04/30/18 23:00 Temperature 98.0 F Pulse Rate 86 82 89 Respiratory Rate 16 Blood Pressure 127/97 H Pulse Oximetry 99 05/01/18 00:00 05/01/18 01:00 05/01/18 02:00 Temperature Pulse Rate 74 94 H 84 Respiratory Rate Blood Pressure Pulse Oximetry 05/01/18 03:00 05/01/18 04:00 05/01/18 05:00 Temperature 97.6 F Pulse Rate 92 H 99 H 105 H Respiratory Rate 14 Blood Pressure 137/94 H Pulse Oximetry 100 05/01/18 06:00 05/01/18 07:00 05/01/18 08:00 Temperature 97.8 F Pulse Rate 106 H 101 H 108 H Respiratory Rate 20 Blood Pressure 136/96 H Pulse Oximetry 95 95 05/01/18 09:00 05/01/18 10:00 05/01/18 11:00 Temperature 97.9 F Pulse Rate 104 H 92 H 104 H Respiratory Rate 20 Blood Pressure 140/99 H Pulse Oximetry 97 05/01/18 12:00 05/01/18 13:00 05/01/18 14:00 Temperature Pulse Rate 109 H 111 H 108 H Respiratory Rate Blood Pressure Pulse Oximetry 05/01/18 15:00 Temperature 98.0 F Pulse Rate 69 Respiratory Rate 20 Blood Pressure 143/99 H Pulse Oximetry 97 Intake & Output 04/30/18 05/01/18 05/01/18 18:59 06:59 18:59 Intake Total 1550 / 1550 1000 / 1000 2200 / 2200 Output Total 300 / 300 300 / 300 Balance 1250 / 1250 700 / 700 2200 / 2200 Weight 57.4 kg Intake: IV 1250 / 1250 1000 / 1000 2200 / 2200 Potassium Chlor 20 mEq/NACL 0. 800 / 800 45% Inj 1,000 ML @ 60 mls/hr IV .CONT .[id number] [facility] Rx#:[id number] NS Inj 1,000 ML @ 84 mls/hr IV. 800 / 800 2000 / 2000 CONT .[id number] [facility] [place] Rx#:[id number] Glycophos 30 Mmol In NS Inj 220 250 / 250 ML @ 38.462 mls/hr IV.SIG ONCE ONE Rx#:[id number] Rocephin Inj 1,000 MG In NS Inj 100 / 100 100 / 100 100 ML @ 200 mls/hr IV.SIG Q24H [facility] [place] Rx#:[id number] Flagyl 500 MG Inj 100 ML @ 100 100 / 100 200 / 200 100 / 100 mls/hr IV.SIG Q8H [facility] [place] Rx#: [id number] Oral 0 / 0 0 / 0 Anesthesia Amount 300 / 300 Output: Urine 300 / 300 300 / 300 - Constitutional no acute distress - Routine HEENT Exam Head: Present: normocephalic - Routine Respiratory Exam Absent: accessory muscle use - Routine Abdominal Exam Present: soft, normoactive bowel sounds. Absent: tenderness, distended, guarding, firm - Routine Skin Exam Present: dry, warm - Routine Neurological Exam Present: alert - Routine Psychiatric Exam Present: cooperative <Blas,Alessandra - Last Filed: 05/01/18 15:12> Vital signs: Vital Signs 04/30/18 17:00 04/30/18 17:15 04/30/18 17:30 Temperature Pulse Rate 88 90 88 Respiratory Rate 18 18 18 Blood Pressure 114/75 118/79 116/82 Pulse Oximetry 100 100 100 04/30/18 17:45 04/30/18 18:00 04/30/18 18:15 Temperature Pulse Rate 88 88 98 H Respiratory Rate 18 18 18 Blood Pressure 115/76 129/87 145/97 H Pulse Oximetry 100 100 100 04/30/18 18:30 04/30/18 18:45 04/30/18 19:00 Temperature Pulse Rate 99 H 100 H 101 H Respiratory Rate 18 18 18 Blood Pressure 146/95 H 141/99 H 141/96 H Pulse Oximetry 100 100 100 04/30/18 19:30 04/30/18 20:00 04/30/18 21:00 Temperature 98.2 F Pulse Rate 94 H 86 Respiratory Rate 18 Blood Pressure 113/81 Pulse Oximetry 98 97 04/30/18 22:00 04/30/18 23:00 05/01/18 00:00 Temperature 98.0 F Pulse Rate 82 89 74 Respiratory Rate 16 Blood Pressure 127/97 H Pulse Oximetry 99 05/01/18 01:00 05/01/18 02:00 05/01/18 03:00 Temperature 97.6 F Pulse Rate 94 H 84 92 H Respiratory Rate 14 Blood Pressure 137/94 H Pulse Oximetry 100 05/01/18 04:00 05/01/18 05:00 05/01/18 06:00 Temperature Pulse Rate 99 H 105 H 106 H Respiratory Rate Blood Pressure Pulse Oximetry 05/01/18 07:00 05/01/18 08:00 05/01/18 09:00 Temperature 97.8 F Pulse Rate 101 H 108 H 104 H Respiratory Rate 20 Blood Pressure 136/96 H Pulse Oximetry 95 95 05/01/18 10:00 05/01/18 11:00 05/01/18 12:00 Temperature 97.9 F Pulse Rate 92 H 104 H 109 H Respiratory Rate 20 Blood Pressure 140/99 H Pulse Oximetry 97 05/01/18 13:00 05/01/18 14:00 05/01/18 15:00 Temperature 98.0 F Pulse Rate 111 H 108 H 69 Respiratory Rate 20 Blood Pressure 143/99 H Pulse Oximetry 97 05/01/18 16:00 05/01/18 16:23 Temperature Pulse Rate 94 H 105 H Respiratory Rate 16 Blood Pressure Pulse Oximetry Intake & Output 04/30/18 05/01/18 05/01/18 18:59 06:59 18:59 Intake Total 1550 / 1550 1000 / 1000 2355 / 2355 Output Total 300 / 300 300 / 300 Balance 1250 / 1250 700 / 700 2355 / 2355 Weight 57.4 kg Intake: IV 1250 / 1250 1000 / 1000 2355 / 2355 Potassium Chlor 20 mEq/NACL 0. 800 / 800 45% Inj 1,000 ML @ 60 mls/hr IV .CONT .[id number] [facility] Rx#:[id number] NS Inj 1,000 ML @ 84 mls/hr IV. 800 / 800 2000 / 1999 CONT .[id number] [facility] Rx#:[id number] Potassium Phosphate Inj 15 MMOL 155 / 155 In NS Inj 150 ML @ 38.75 mls/ hr IV.SIG ONCE ONE Rx#:[id number] Glycophos 30 Mmol In NS Inj 220 250 / 250 ML @ 38.462 mls/hr IV.SIG ONCE ONE Rx#:[id number] Rocephin Inj 1,000 MG In NS Inj 100 / 100 100 / 100 100 ML @ 200 mls/hr IV.SIG Q24H [facility] [place] Rx#:[id number] Flagyl 500 MG Inj 100 ML @ 100 100 / 100 200 / 200 100 / 100 mls/hr IV.SIG Q8H [facility] [place] Rx#: [id number] Oral 0 / 0 0 / 0 Anesthesia Amount 300 / 300 Output: Urine 300 / 300 300 / 300 <Nicholas Ruiz E - Last Filed: 05/01/18 16:53> Results - Labs CBC & Chem 7: 05/01/18 05:35 05/01/18 05:35 Laboratory Results - last 24 hr 05/01/18 05/01/18 05:35 05:35 WBC 8.8 RBC 4.63 Hgb 12.4 L Hct 37.8 L MCV 81.7 MCH 26.7 L MCHC 32.7 RDW 18.5 H Plt Count 96 L MPV 8.9 Prelim Diff (Auto) Slide review pending Neut % (Auto) 79.1 H Lymph % (Auto) 17.2 [place] % (Auto) 3.4 Eos % (Auto) 0.2 Baso % (Auto) 0.1 Neut # (Auto) 7.0 Lymph # (Auto) 1.5 [place] # (Auto) 0.3 Eos # (Auto) 0.0 Baso # (Auto) 0.0 WBC Differential . Diff Scan Auto diff confirmed Differential Comment . Platelet Estimate Low L Platelet Morphology Normal Sodium 139 Potassium 3.7 Chloride 105 Carbon Dioxide 23.6 Anion Gap 10 BUN 9 Creatinine 0.46 L Estimated GFR Greater than 89 Random Glucose 83 Calcium 7.3 L* Phosphorus 1.5 L Magnesium 1.8 Albumin 2.2 L <Alessandra Blas - Last Filed: 05/01/18 15:12> - Labs CBC & Chem 7: 05/01/18 05:35 05/01/18 05:35 Laboratory Results - last 24 hr 05/01/18 05/01/18 05:35 05:35 WBC 8.8 RBC 4.63 Hgb 12.4 L Hct 37.8 L MCV 81.7 MCH 26.7 L MCHC 32.7 RDW 18.5 H Plt Count 96 L MPV 8.9 Prelim Diff (Auto) Slide review pending Neut % (Auto) 79.1 H Lymph % (Auto) 17.2 [place] % (Auto) 3.4 Eos % (Auto) 0.2 Baso % (Auto) 0.1 Neut # (Auto) 7.0 Lymph # (Auto) 1.5 [place] # (Auto) 0.3 Eos # (Auto) 0.0 Baso # (Auto) 0.0 WBC Differential . Diff Scan Auto diff confirmed Differential Comment . Platelet Estimate Low L Platelet Morphology Normal Sodium 139 Potassium 3.7 Chloride 105 Carbon Dioxide 23.6 Anion Gap 10 BUN 9 Creatinine 0.46 L Estimated GFR Greater than 89 Random Glucose 83 Calcium 7.3 L* Phosphorus 1.5 L Magnesium 1.8 Albumin 2.2 L <Nicholas Ruiz E - Last Filed: 05/01/18 16:53> Assessment and Plan - Plan 05/01/2018 Patient post EGD Severe esophagitis with resultant severe esophageal stricture. IR for PEG placement Plan -N.p.o. -Protonix 40 mg IV twice daily -Avoid anticoagulation -IR for PEG placement -Supportive care -Further recommendations to follow based on patient status and findings This patient has been seen by myself and Dr. Ruiz and this note is written on his behalf - Attending Attestation Dr. Ruiz <Blas,Alessandra - Last Filed: 05/01/18 15:12> - Plan Patient seen and examined Agree with above Continue with current supportive care Monitor labs <Nicholas Ruiz E - Last Filed: 05/01/18 16:53>
--- NOTE | 2018-05-01 16:01 | P.PN ---
Subjective Interval history: ALERT NAD Physical Exam Vital signs: Vital Signs 04/30/18 16:00 04/30/18 17:00 04/30/18 17:15 Temperature Pulse Rate 85 88 90 Respiratory Rate 18 18 18 Blood Pressure 115/64 114/75 118/79 Pulse Oximetry 98 100 100 04/30/18 17:30 04/30/18 17:45 04/30/18 18:00 Temperature Pulse Rate 88 88 88 Respiratory Rate 18 18 18 Blood Pressure 116/82 115/76 129/87 Pulse Oximetry 100 100 100 04/30/18 18:15 04/30/18 18:30 04/30/18 18:45 Temperature Pulse Rate 98 H 99 H 100 H Respiratory Rate 18 18 18 Blood Pressure 145/97 H 146/95 H 141/99 H Pulse Oximetry 100 100 100 04/30/18 19:00 04/30/18 19:30 04/30/18 20:00 Temperature 98.2 F Pulse Rate 101 H 94 H Respiratory Rate 18 18 Blood Pressure 141/96 H 113/81 Pulse Oximetry 100 98 97 04/30/18 21:00 04/30/18 22:00 04/30/18 23:00 Temperature 98.0 F Pulse Rate 86 82 89 Respiratory Rate 16 Blood Pressure 127/97 H Pulse Oximetry 99 05/01/18 00:00 05/01/18 01:00 05/01/18 02:00 Temperature Pulse Rate 74 94 H 84 Respiratory Rate Blood Pressure Pulse Oximetry 05/01/18 03:00 05/01/18 04:00 05/01/18 05:00 Temperature 97.6 F Pulse Rate 92 H 99 H 105 H Respiratory Rate 14 Blood Pressure 137/94 H Pulse Oximetry 100 05/01/18 06:00 05/01/18 07:00 05/01/18 08:00 Temperature 97.8 F Pulse Rate 106 H 101 H 108 H Respiratory Rate 20 Blood Pressure 136/96 H Pulse Oximetry 95 95 05/01/18 09:00 05/01/18 10:00 05/01/18 11:00 Temperature 97.9 F Pulse Rate 104 H 92 H 104 H Respiratory Rate 20 Blood Pressure 140/99 H Pulse Oximetry 97 05/01/18 12:00 05/01/18 13:00 05/01/18 14:00 Temperature Pulse Rate 109 H 111 H 108 H Respiratory Rate Blood Pressure Pulse Oximetry 05/01/18 15:00 Temperature 98.0 F Pulse Rate 69 Respiratory Rate 20 Blood Pressure 143/99 H Pulse Oximetry 97 Intake & Output 04/30/18 05/01/18 05/01/18 18:59 06:59 18:59 Intake Total 1550 / 1550 1000 / 1000 2200 / 2200 Output Total 300 / 300 300 / 300 Balance 1250 / 1250 700 / 700 2200 / 2200 Weight 57.4 kg Intake: IV 1250 / 1250 1000 / 1000 2200 / 2200 Potassium Chlor 20 mEq/NACL 0. 800 / 800 45% Inj 1,000 ML @ 60 mls/hr IV .CONT .[id number] [facility] Rx#:[id number] NS Inj 1,000 ML @ 84 mls/hr IV. 800 / 800 2000 / 2000 CONT .[id number] [facility] Rx#:[id number] Glycophos 30 Mmol In NS Inj 220 250 / 250 ML @ 38.462 mls/hr IV.SIG ONCE ONE Rx#:[id number] Rocephin Inj 1,000 MG In NS Inj 100 / 100 100 / 100 100 ML @ 200 mls/hr IV.SIG Q24H [facility] Rx#:[id number] Flagyl 500 MG Inj 100 ML @ 100 100 / 100 200 / 200 100 / 100 mls/hr IV.SIG Q8H [facility] Rx#: [id number] Oral 0 / 0 0 / 0 Anesthesia Amount 300 / 300 Output: Urine 300 / 300 300 / 300 Narrative: GENERAL: Patient sitting in bed. Nonverbal, however makes good eye contact. No bleeding today. SKIN: Warm and dry. HEAD: Normocephalic. EYES: No scleral icterus. No injection or drainage. NECK: Supple, trachea midline. No JVD. CARDIOVASCULAR: Regular rate and rhythm without murmurs, gallops, or rubs. RESPIRATORY: Breath sounds equal bilaterally. No accessory muscle use. GASTROINTESTINAL: Abdomen soft, non-tender, nondistended. MUSCULOSKELETAL: No cyanosis, or edema. BACK: Nontender without obvious deformity. No CVA tenderness. Results - Labs CBC & Chem 7: 05/01/18 05:35 05/01/18 05:35 Laboratory Results - last 24 hr 05/01/18 05/01/18 05:35 05:35 WBC 8.8 RBC 4.63 Hgb 12.4 L Hct 37.8 L MCV 81.7 MCH 26.7 L MCHC 32.7 RDW 18.5 H Plt Count 96 L MPV 8.9 Prelim Diff (Auto) Slide review pending Neut % (Auto) 79.1 H Lymph % (Auto) 17.2 [place] % (Auto) 3.4 Eos % (Auto) 0.2 Baso % (Auto) 0.1 Neut # (Auto) 7.0 Lymph # (Auto) 1.5 [place] # (Auto) 0.3 Eos # (Auto) 0.0 Baso # (Auto) 0.0 WBC Differential . Diff Scan Auto diff confirmed Differential Comment . Platelet Estimate Low L Platelet Morphology Normal Sodium 139 Potassium 3.7 Chloride 105 Carbon Dioxide 23.6 Anion Gap 10 BUN 9 Creatinine 0.46 L Estimated GFR Greater than 89 Random Glucose 83 Calcium 7.3 L* Phosphorus 1.5 L Magnesium 1.8 Albumin 2.2 L Assessment and Plan - Plan impression Hemoptysis,minor respiratory failure pneumonia due to recurrent aspiration oesophageal dilitation S/P CVA HYPERBILIRUBINEMIA plan o2 as needed pulmonary toilet
[2018-05-01] MEDS: Pantoprazole Inj 40 MG Vial IV.PUSH SCH (17:08)
[2018-05-02] MEDS: KCL 30 mEq/D5W/NaCl 0.45% Inj 1,000 ML IV.CONT SCH ×2 (01:20→16:47)
[2018-05-02] MEDS: Pantoprazole Inj 40 MG Vial IV.PUSH SCH ×2 (05:57→15:51)
[2018-05-02 06:12] LABS: Baso % (Auto) 0.1 % (0.0-2.0); Eos % (Auto) 0.3 % (0.0-4.0); Hematocrit 35.2 % (39.0-51.0); Hemoglobin 11.7 gm/dL (13.0-17.0); Lymph # (Auto) 1.3 th/mm3 (1.0-4.8); Lymph % (Auto) 25.2 % (9.0-44.0); Mean Corpuscular HGB Conc 33.1 % (32.0-36.0); Mean Corpuscular Hemoglobin 26.7 pg (27.0-34.0); Mean Corpuscular Volume 80.8 fL (80.0-100.0); Mean Platelet Volume 8.8 fL (7.0-11.0); Mono # (Auto) 0.2 th/mm3 (0.0-0.9); Mono % (Auto) 3.3 % (0.0-8.0); Neut # (Auto) 3.7 th/mm3 (1.8-7.7); Neut % (Auto) 71.1 % (16.0-70.0); Platelet Count 61 th/mm3 (150-450); Red Blood Count 4.36 mil/mm3 (4.50-5.90); Red Cell Distribution Width 18.5 % (11.6-17.2); White Blood Count 5.2 th/mm3 (4.0-11.0)
[2018-05-02 06:53] LABS: Anion Gap 10 meq/L (5-15); Blood Urea Nitrogen 6 mg/dL (7-18); Carbon Dioxide 23.2 meq/L (21.0-32.0); Chloride 106 meq/L (98-107); Glomerular Filtration Rate Greater Than 89 mL/min (>89); Glucose,Random 95 mg/dL (74-106); Magnesium 1.7 mg/dL (1.5-2.5); Phosphorus 0.9 mg/dL (2.5-4.9); Sodium 139 meq/L (136-145)
[2018-05-02 07:09] LABS: Calcium 7.3 mg/dL (8.5-10.1)
--- NOTE | 2018-05-02 09:14 | P.PN ---
Subjective Interval history: This is a pleasant 57 y/o Male with GERD, history of ischemic CVA with right sided Hemiparesis, who came to ER with Dysphagia, cough, SOB, has severe tobacco dependence, found Hypoxic in ER. 05/02: Patient stable seen in his bedroom, non verbal, multiple ecchymosis on four extremities, publishing specialist following, has Hemoptysis minor, respiratory failure, Pneumonia due to recurrent aspiration, esophageal Dilatation, no nausea, vomit or diarrhea, discussed with nurse Miss Petty. Physical Exam Vital signs: Vital Signs 05/01/18 10:00 05/01/18 11:00 05/01/18 12:00 Temperature 97.9 F Pulse Rate 92 H 104 H 109 H Respiratory Rate 20 Blood Pressure 140/99 H Pulse Oximetry 97 05/01/18 13:00 05/01/18 14:00 05/01/18 15:00 Temperature 98.0 F Pulse Rate 111 H 108 H 69 Respiratory Rate 20 Blood Pressure 143/99 H Pulse Oximetry 97 05/01/18 16:00 05/01/18 16:23 05/01/18 17:00 Temperature Pulse Rate 94 H 105 H 90 Respiratory Rate 16 Blood Pressure Pulse Oximetry 05/01/18 18:00 05/01/18 19:00 05/01/18 20:00 Temperature 98.8 F Pulse Rate 93 H 82 91 H Respiratory Rate 16 Blood Pressure 130/90 Pulse Oximetry 99 100 05/01/18 21:00 05/01/18 21:45 05/01/18 22:00 Temperature Pulse Rate 98 H 103 H 96 H Respiratory Rate 17 Blood Pressure Pulse Oximetry 05/01/18 23:00 05/02/18 00:00 05/02/18 01:00 Temperature 97.0 F L Pulse Rate 101 H 96 H 84 Respiratory Rate 18 Blood Pressure 122/96 H Pulse Oximetry 97 05/02/18 02:00 05/02/18 03:00 05/02/18 04:00 Temperature 97.6 F Pulse Rate 96 H 100 H 85 Respiratory Rate 16 Blood Pressure 112/87 Pulse Oximetry 99 05/02/18 05:00 05/02/18 06:00 05/02/18 07:00 Temperature 97.6 F Pulse Rate 81 88 90 Respiratory Rate 18 Blood Pressure 121/74 Pulse Oximetry 98 Intake & Output 05/01/18 05/02/18 05/02/18 18:59 06:59 18:59 Intake Total 2455 / 2455 1740 / 1740 Output Total 450 / 450 300 / 300 Balance 2004 1440 / 1440 Weight 57.3 kg Intake: IV 2455 / 2455 1020 / 1020 D5W/1/2NS + KCL 30 mEq Inj 1, 920 / 920 000 ML @ 75 mls/hr IV.CONT . [id number] [facility] Rx#:[id number] NS Inj 1,000 ML @ 84 mls/hr IV. 1999 CONT .[id number] [facility] Rx#:[id number] Potassium Phosphate Inj 15 MMOL 155 / 155 In NS Inj 150 ML @ 38.75 mls/ hr IV.SIG ONCE ONE Rx#:[id number] Rocephin Inj 1,000 MG In NS Inj 100 / 100 100 ML @ 200 mls/hr IV.SIG Q24H [facility] Rx#:[id number] Flagyl 500 MG Inj 100 ML @ 100 200 / 200 100 / 100 mls/hr IV.SIG Q8H [facility] Rx#: [id number] Oral 0 / 0 720 / 720 Output: Urine 450 / 450 300 / 300 Other: # Bowel Movements 0 Narrative: GENERAL: Non verbal. SKIN: multiple ecchymosis on all four extremities. HEAD: Normocephalic. EYES: No scleral icterus. No injection or drainage. NECK: Supple, trachea midline. No JVD. CARDIOVASCULAR: Regular rate and rhythm without murmurs, gallops, or rubs. RESPIRATORY: Breath sounds equal bilaterally. No accessory muscle use. GASTROINTESTINAL: Abdomen soft, non-tender, nondistended. MUSCULOSKELETAL: No cyanosis, or edema. BACK: Nontender without obvious deformity. No CVA tenderness. Results - Labs CBC & Chem 7: 05/02/18 05:36 05/02/18 05:36 Laboratory Results - last 24 hr 05/02/18 05/02/18 05:36 05:36 WBC 5.2 RBC 4.36 L Hgb 11.7 L Hct 35.2 L MCV 80.8 MCH 26.7 L MCHC 33.1 RDW 18.5 H Plt Count 61 L D MPV 8.8 Prelim Diff (Auto) Slide review pending Neut % (Auto) 71.1 H Lymph % (Auto) 25.2 [place] % (Auto) 3.3 Eos % (Auto) 0.3 Baso % (Auto) 0.1 Neut # (Auto) 3.7 Lymph # (Auto) 1.3 [place] # (Auto) 0.2 Eos # (Auto) 0.0 Baso # (Auto) 0.0 Differential Comment . Sodium 139 Potassium 4.0 Chloride 106 Carbon Dioxide 23.2 Anion Gap 10 BUN 6 L Creatinine 0.40 L Estimated GFR Greater than 89 Random Glucose 95 Calcium 7.3 L* Phosphorus 0.9 L Magnesium 1.7 Albumin 2.0 L - Imaging Chest CTA 04/26/18 00:00 CONCLUSION: 1. No evidence of pulmonary embolism. 2. Minimal scattered patchy densities are noted within the lower and upper lobes consistent with possible pneumonia. Debris is noted within the right mainstem bronchus and extending into the right upper and lower lobe bronchi. 3. The diffusely dilated esophagus which contains debris raising the possibility of achalasia or achalasia-like process. Outpatient evaluation of this finding could be performed if requested. 4. Coronary artery calcifications. 5. Calcified nonobstructing left renal calculi. Head CT 04/26/18 11:11 CONCLUSION: 1. 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 2. Denies sinus air-fluid level. Pulmonary Perfusion Imaging 04/26/18 11:11 CONCLUSION: 1. Intermediate probability for pulmonary embolus on the left. Venous Doppler Study 04/26/18 11:11 CONCLUSION: 1. The study is negative for bilateral lower extremity deep venous thrombosis. Chest X-Ray 04/30/18 00:00 CONCLUSION: Right lower lobe pneumonia. Assessment and Plan - Plan This is a pleasant 57 y/o Male with GERD, history of ischemic CVA with right sided Hemiparesis, who came to ER with Dysphagia, cough, SOB, has severe tobacco dependence, found Hypoxic in ER. 1. Acute hypoxic hypercapnic respiratory failure likely secondary to aspiration/ Tobacco dependence CTA of the chest is negative for pulmonary embolus however shows debris is in the right mainstem bronchus which could be contributing the patient's symptoms. suspected chemical pneumonitis versus pneumonia. as per publishing specialist recommendations are to continue supplemental oxygen and antibiotics. Bronchodilator, Mucolytic incentive spirometry. strongly recommended to stop smoking, Aspiration pneumonia likely secondary to achalasia. Continue on ceftriaxone and metronidazole. 05/02: publishing specialist following, has Hemoptysis minor, respiratory failure, Pneumonia due to recurrent aspiration, esophageal Dilatation. 2. Dysphagia and Esophageal Stricture/Achalasia seen on Upper GI series. CT of the chest also showed diffusely dilated esophagus which contains debris, and findings concerning of achalasia. GI was consulted and recommends a barium swallow, NPO as per Speech Therapy recommendations, EGD found Severe Achalasia, PEG tube placement for tomorrow by IR. continue PPIs. 3. Electrolyte derangement replaced and following 4. History of CVA continue Aspirin 5. Nonsustained ventricular tachycardia. 8 beats of V. tach reported today. Will replace phosphorus and monitor on telemetry. //DVT prophylaxis: Subcu heparin for DVT prophylaxis Code Status: Full code. Discussed Condition With: patient and nurse Miss Petty. Discharge Planning: DCF following Once cleared by specialists.
[2018-05-02] MEDS: Sodium Chloride 0.9% 2 ML Flush BID IV.FLUSH SCH ×2 (09:26→21:30)
[2018-05-02] MEDS ORDERED: Sodium Glycerophosphate Inj 30 MMOL in Sodium Chlor 0.9% Inj 250 ML IV.SIG ONE (11:00)
--- NOTE | 2018-05-02 12:07 | P.PNGI ---
Subjective Interval history: Patient laying supine in bed, resting with eyes closed. No apparent distress noted <Alessandra Blas - Last Filed: 05/02/18 12:03> Physical Exam Vital signs: Vital Signs 05/01/18 13:00 05/01/18 14:00 05/01/18 15:00 Temperature 98.0 F Pulse Rate 111 H 108 H 69 Respiratory Rate 20 Blood Pressure 143/99 H Pulse Oximetry 97 05/01/18 16:00 05/01/18 16:23 05/01/18 17:00 Temperature Pulse Rate 94 H 105 H 90 Respiratory Rate 16 Blood Pressure Pulse Oximetry 05/01/18 18:00 05/01/18 19:00 05/01/18 20:00 Temperature 98.8 F Pulse Rate 93 H 82 91 H Respiratory Rate 16 Blood Pressure 130/90 Pulse Oximetry 99 100 05/01/18 21:00 05/01/18 21:45 05/01/18 22:00 Temperature Pulse Rate 98 H 103 H 96 H Respiratory Rate 17 Blood Pressure Pulse Oximetry 05/01/18 23:00 05/02/18 00:00 05/02/18 01:00 Temperature 97.0 F L Pulse Rate 101 H 96 H 84 Respiratory Rate 18 Blood Pressure 122/96 H Pulse Oximetry 97 05/02/18 02:00 05/02/18 03:00 05/02/18 04:00 Temperature 97.6 F Pulse Rate 96 H 100 H 85 Respiratory Rate 16 Blood Pressure 112/87 Pulse Oximetry 99 05/02/18 05:00 05/02/18 06:00 05/02/18 07:00 Temperature 97.6 F Pulse Rate 81 88 90 Respiratory Rate 18 Blood Pressure 121/74 Pulse Oximetry 98 05/02/18 09:30 05/02/18 11:00 Temperature 97.0 F L Pulse Rate 78 93 H Respiratory Rate 16 18 Blood Pressure 114/85 Pulse Oximetry 99 98 Intake & Output 05/01/18 05/02/18 05/02/18 18:59 06:59 18:59 Intake Total 2455 / 2455 1740 / 1740 Output Total 450 / 450 300 / 300 Balance 2004 1440 / 1440 Weight 57.3 kg Intake: IV 2455 / 2455 1020 / 1020 D5W/1/2NS + KCL 30 mEq Inj 1, 920 / 920 000 ML @ 75 mls/hr IV.CONT . [id number] [facility] Rx#:[id number] NS Inj 1,000 ML @ 84 mls/hr IV. 1999 CONT .[id number] [facility] Rx#:[id number] Potassium Phosphate Inj 15 MMOL 155 / 155 In NS Inj 150 ML @ 38.75 mls/ hr IV.SIG ONCE ONE Rx#:[id number] Rocephin Inj 1,000 MG In NS Inj 100 / 100 100 ML @ 200 mls/hr IV.SIG Q24H [facility] Rx#:[id number] Flagyl 500 MG Inj 100 ML @ 100 200 / 200 100 / 100 mls/hr IV.SIG Q8H [facility] Rx#: [id number] Oral 0 / 0 720 / 720 Output: Urine 450 / 450 300 / 300 Other: # Bowel Movements 0 - Constitutional no acute distress - Routine HEENT Exam Head: Present: normocephalic - Routine Respiratory Exam Present: CTA bilaterally. Absent: accessory muscle use - Routine Abdominal Exam Present: soft, normoactive bowel sounds. Absent: tenderness, distended, guarding, firm - Routine Skin Exam Present: dry, warm <Blas,Alessandra - Last Filed: 05/02/18 12:03> Vital signs: Vital Signs 05/01/18 19:00 05/01/18 20:00 05/01/18 21:00 Temperature 98.8 F Pulse Rate 82 91 H 98 H Respiratory Rate 16 Blood Pressure 130/90 Pulse Oximetry 99 100 05/01/18 21:45 05/01/18 22:00 05/01/18 23:00 Temperature 97.0 F L Pulse Rate 103 H 96 H 101 H Respiratory Rate 17 18 Blood Pressure 122/96 H Pulse Oximetry 97 05/02/18 00:00 05/02/18 01:00 05/02/18 02:00 Temperature Pulse Rate 96 H 84 96 H Respiratory Rate Blood Pressure Pulse Oximetry 05/02/18 03:00 05/02/18 04:00 05/02/18 05:00 Temperature 97.6 F Pulse Rate 100 H 85 81 Respiratory Rate 16 Blood Pressure 112/87 Pulse Oximetry 99 05/02/18 06:00 05/02/18 07:00 05/02/18 08:00 Temperature 97.6 F Pulse Rate 88 83 98 H Respiratory Rate 18 Blood Pressure 121/74 Pulse Oximetry 98 98 05/02/18 09:00 05/02/18 09:30 05/02/18 10:00 Temperature Pulse Rate 76 78 102 H Respiratory Rate 16 Blood Pressure Pulse Oximetry 99 05/02/18 11:00 05/02/18 12:00 05/02/18 13:00 Temperature 97.0 F L Pulse Rate 84 93 H 104 H Respiratory Rate 18 Blood Pressure 114/85 Pulse Oximetry 98 05/02/18 14:00 05/02/18 15:00 05/02/18 16:00 Temperature 97.6 F Pulse Rate 88 88 86 Respiratory Rate 20 Blood Pressure 124/88 Pulse Oximetry 96 05/02/18 17:00 05/02/18 17:05 Temperature Pulse Rate 76 77 Respiratory Rate 16 Blood Pressure Pulse Oximetry Intake & Output 05/01/18 05/02/18 05/02/18 18:59 06:59 18:59 Intake Total 2455 / 2455 1740 / 1740 1400 / 1400 Output Total 450 / 450 300 / 300 Balance 2004 1440 / 1440 1400 / 1400 Weight 57.3 kg Intake: IV 2455 / 2455 1020 / 1020 1400 / 1400 D5W/1/2NS + KCL 30 mEq Inj 1, 920 / 920 1000 / 1000 000 ML @ 75 mls/hr IV.CONT . [id number] [facility] Rx#:[id number] NS Inj 1,000 ML @ 84 mls/hr IV. 1999 CONT .[id number] [facility] Rx#:[id number] Magnesium Sulfate 1 gm/D5W 100 200 / 200 ml Premix 100 ML @ 100 mls/hr IV.SIG Q1H [facility] Rx#:[id number] Potassium Phosphate Inj 15 MMOL 155 / 155 In NS Inj 150 ML @ 38.75 mls/ hr IV.SIG ONCE ONE Rx#:[id number] Rocephin Inj 1,000 MG In NS Inj 100 / 100 100 / 100 100 ML @ 200 mls/hr IV.SIG Q24H [facility] Rx#:[id number] Flagyl 500 MG Inj 100 ML @ 100 200 / 200 100 / 100 100 / 100 mls/hr IV.SIG Q8H [facility] Rx#: [id number] Oral 0 / 0 720 / 720 Output: Urine 450 / 450 300 / 300 Other: # Bowel Movements 0 <Joseph,Nicholas E - Last Filed: 05/02/18 18:09> Results - Labs CBC & Chem 7: 05/02/18 05:36 05/02/18 05:36 Laboratory Results - last 24 hr 05/02/18 05/02/18 05:36 05:36 WBC 5.2 RBC 4.36 L Hgb 11.7 L Hct 35.2 L MCV 80.8 MCH 26.7 L MCHC 33.1 RDW 18.5 H Plt Count 61 L D MPV 8.8 Prelim Diff (Auto) Slide review pending Neut % (Auto) 71.1 H Lymph % (Auto) 25.2 [place] % (Auto) 3.3 Eos % (Auto) 0.3 Baso % (Auto) 0.1 Neut # (Auto) 3.7 Lymph # (Auto) 1.3 [place] # (Auto) 0.2 Eos # (Auto) 0.0 Baso # (Auto) 0.0 WBC Differential . Diff Scan Auto diff confirmed Differential Comment . Sodium 139 Potassium 4.0 Chloride 106 Carbon Dioxide 23.2 Anion Gap 10 BUN 6 L Creatinine 0.40 L Estimated GFR Greater than 89 Random Glucose 95 Calcium 7.3 L* Phosphorus 0.9 L Magnesium 1.7 Albumin 2.0 L <Alessandra Blas - Last Filed: 05/02/18 12:03> - Labs CBC & Chem 7: 05/02/18 05:36 05/02/18 05:36 Laboratory Results - last 24 hr 05/02/18 05/02/18 05:36 05:36 WBC 5.2 RBC 4.36 L Hgb 11.7 L Hct 35.2 L MCV 80.8 MCH 26.7 L MCHC 33.1 RDW 18.5 H Plt Count 61 L D MPV 8.8 Prelim Diff (Auto) Slide review pending Neut % (Auto) 71.1 H Lymph % (Auto) 25.2 [place] % (Auto) 3.3 Eos % (Auto) 0.3 Baso % (Auto) 0.1 Neut # (Auto) 3.7 Lymph # (Auto) 1.3 [place] # (Auto) 0.2 Eos # (Auto) 0.0 Baso # (Auto) 0.0 WBC Differential . Diff Scan Auto diff confirmed Differential Comment . Sodium 139 Potassium 4.0 Chloride 106 Carbon Dioxide 23.2 Anion Gap 10 BUN 6 L Creatinine 0.40 L Estimated GFR Greater than 89 Random Glucose 95 Calcium 7.3 L* Phosphorus 0.9 L Magnesium 1.7 Albumin 2.0 L <Nicholas Ruiz - Last Filed: 05/02/18 18:09> Assessment and Plan (1) Dysphagia Status: Acute Code(s): R13.10 - Dysphagia, unspecified (2) Esophageal stricture Status: Acute Code(s): K22.2 - Esophageal obstruction - Plan 05/02/2018 Dysphasia/esophageal stricture N.p.o. status maintained Patient scheduled for PEG placement by IR tomorrow Hemoglobin 11.7 hematocrit 35.2 Plan -Maintain n.p.o. status -IR for PEG placement tomorrow -Continue PPI -Supportive care -Further recommendations to follow based on patient status and findings This patient has been seen by myself and Dr. Ruiz and this note is written on his behalf - Attending Attestation dr. ruiz <Alessandra Blas - Last Filed: 05/02/18 12:03> (1) Dysphagia Status: Acute Code(s): R13.10 - Dysphagia, unspecified (2) Esophageal stricture Status: Acute Code(s): K22.2 - Esophageal obstruction - Plan Patient seen and examined Agree with above Continue with current supportive care Monitor labs IR to proceed with PEG placement Long-term solution may be either to keep the tube feeding or consider esophagectomy or may be after a period of treatment give a trial of esophageal dilations <Nicholas Ruiz - Last Filed: 05/02/18 18:09>
[2018-05-02] MEDS: Mag Sulf 1 gm/100 ml Premix 100 ML IV.SIG SCH ×2 (12:53→13:49)
--- NOTE | 2018-05-02 16:42 | P.PN ---
Subjective Interval history: ALERT NAD Physical Exam Vital signs: Vital Signs 05/01/18 17:00 05/01/18 18:00 05/01/18 19:00 Temperature 98.8 F Pulse Rate 90 93 H 82 Respiratory Rate 16 Blood Pressure 130/90 Pulse Oximetry 99 05/01/18 20:00 05/01/18 21:00 05/01/18 21:45 Temperature Pulse Rate 91 H 98 H 103 H Respiratory Rate 17 Blood Pressure Pulse Oximetry 100 05/01/18 22:00 05/01/18 23:00 05/02/18 00:00 Temperature 97.0 F L Pulse Rate 96 H 101 H 96 H Respiratory Rate 18 Blood Pressure 122/96 H Pulse Oximetry 97 05/02/18 01:00 05/02/18 02:00 05/02/18 03:00 Temperature 97.6 F Pulse Rate 84 96 H 100 H Respiratory Rate 16 Blood Pressure 112/87 Pulse Oximetry 99 05/02/18 04:00 05/02/18 05:00 05/02/18 06:00 Temperature Pulse Rate 85 81 88 Respiratory Rate Blood Pressure Pulse Oximetry 05/02/18 07:00 05/02/18 08:00 05/02/18 09:00 Temperature 97.6 F Pulse Rate 83 98 H 76 Respiratory Rate 18 Blood Pressure 121/74 Pulse Oximetry 98 98 05/02/18 09:30 05/02/18 10:00 05/02/18 11:00 Temperature 97.0 F L Pulse Rate 78 102 H 84 Respiratory Rate 16 18 Blood Pressure 114/85 Pulse Oximetry 99 98 05/02/18 12:00 05/02/18 13:00 Temperature Pulse Rate 93 H 104 H Respiratory Rate Blood Pressure Pulse Oximetry Intake & Output 05/01/18 05/02/18 05/02/18 18:59 06:59 18:59 Intake Total 2455 / 2455 1740 / 1740 400 / 400 Output Total 450 / 450 300 / 300 Balance 2004 1440 / 1440 400 / 400 Weight 57.3 kg Intake: IV 2455 / 2455 1020 / 1020 400 / 400 D5W/1/2NS + KCL 30 mEq Inj 1, 920 / 920 000 ML @ 75 mls/hr IV.CONT . [id number] [facility] Rx#:[id number] NS Inj 1,000 ML @ 84 mls/hr IV. 1999 CONT .[id number] [facility] Rx#:[id number] Magnesium Sulfate 1 gm/D5W 100 200 / 200 ml Premix 100 ML @ 100 mls/hr IV.SIG Q1H [facility] Rx#:[id number] Potassium Phosphate Inj 15 MMOL 155 / 155 In NS Inj 150 ML @ 38.75 mls/ hr IV.SIG ONCE ONE Rx#:[id number] Rocephin Inj 1,000 MG In NS Inj 100 / 100 100 / 100 100 ML @ 200 mls/hr IV.SIG Q24H [facility] Rx#:[id number] Flagyl 500 MG Inj 100 ML @ 100 200 / 200 100 / 100 100 / 100 mls/hr IV.SIG Q8H [facility] Rx#: [id number] Oral 0 / 0 720 / 720 Output: Urine 450 / 450 300 / 300 Other: # Bowel Movements 0 Narrative: GENERAL: Non verbal. SKIN: Warm and dry. HEAD: Normocephalic. EYES: No scleral icterus. No injection or drainage. NECK: Supple, trachea midline. No JVD. CARDIOVASCULAR: Regular rate and rhythm without murmurs, gallops, or rubs. RESPIRATORY: Breath sounds equal bilaterally. No accessory muscle use. GASTROINTESTINAL: Abdomen soft, non-tender, nondistended. MUSCULOSKELETAL: No cyanosis, or edema. BACK: Nontender without obvious deformity. No CVA tenderness. Results - Labs CBC & Chem 7: 05/02/18 05:36 05/02/18 05:36 Laboratory Results - last 24 hr 05/02/18 05/02/18 05:36 05:36 WBC 5.2 RBC 4.36 L Hgb 11.7 L Hct 35.2 L MCV 80.8 MCH 26.7 L MCHC 33.1 RDW 18.5 H Plt Count 61 L D MPV 8.8 Prelim Diff (Auto) Slide review pending Neut % (Auto) 71.1 H Lymph % (Auto) 25.2 [place] % (Auto) 3.3 Eos % (Auto) 0.3 Baso % (Auto) 0.1 Neut # (Auto) 3.7 Lymph # (Auto) 1.3 [place] # (Auto) 0.2 Eos # (Auto) 0.0 Baso # (Auto) 0.0 WBC Differential . Diff Scan Auto diff confirmed Differential Comment . Sodium 139 Potassium 4.0 Chloride 106 Carbon Dioxide 23.2 Anion Gap 10 BUN 6 L Creatinine 0.40 L Estimated GFR Greater than 89 Random Glucose 95 Calcium 7.3 L* Phosphorus 0.9 L Magnesium 1.7 Albumin 2.0 L Assessment and Plan - Plan impression Hemoptysis,minor respiratory failure pneumonia due to recurrent aspiration oesophageal dilitation S/P CVA HYPERBILIRUBINEMIA plan o2 as needed pulmonary toilet
--- NOTE | 2018-05-02 16:44 | P.DIET ---
Nutritional Evaluation Type of nutrition evaluation: follow-up Nutrition consult regarding: Tube Feeding Nutrition screening: [facility] [place] Subjective Barriers to Nutrition: Swallowing problem Objective - Diagnosis Hypoxia - Objective Body Mass Index: 19.2 % IBW: 82 (IBW = 152lb) Body Weight Used for Calculations: Actual Energy Needs - Lower Range (kCal/kg): 25 Energy Needs - Upper Range (kCal/kg): 30 Lower Limit kCal/kg (kCals): 1,433 Upper Limit kCal/kg (kCals): 1,719 Lower Limit Protein Factor (Grams per Kg): 1.1 Upper Limit Protein Factor (Grams per Kg): 1.3 Lower Protein Needs (Protein): 63 Upper Protein Needs (Protein): 75 Fluid Factor (ml/kg): 30 Estimated Fluid Needs (ml): 1,719 Dietitian Reviewed in Medical Record: Current diet, Curent medications, Intake & Output, Labs, Medical history Diet Order: NPO Oral Diet Intake Amount: Poor <50% Speech Therapy Recommendations: No Objective Comments: PMH: hx of stroke, hernia, speech impairment Meds: flagyl, protonix Labs: BUN 6, Cr 0.4, Ca 7.3 Assessment Assessment: Pt had not been tolerating PO intake for this past week per MD note. Pt unable to eat d/t dilated esophagus w/ dysphagia. Pt is scheduled for PEG placement tomorrow (05/03). RD to recommend Vital 1.5 @ 45mL/hr to provide 1620 kcal, 73gm of pro, and 825 mL of free water. Recommendations: 1. RD to recommend Vital 1.5 @ 45mL/hr 2. Dietitian following Dietitian to Monitor: Lab values, Glucose level, Intake & Output, Tube feeding tolerance, Weight change, PO Intake, Diet advancement, Medical course
[2018-05-02] MEDS: Potassium Chloride Inj 30 MEQ in Dextrose 5%/NaCl 0.45% Inj 1,000 ML IV.SIG SCH (16:47)
[2018-05-03] MEDS: Pantoprazole Inj 40 MG Vial IV.PUSH SCH ×2 (03:58→18:45)
[2018-05-03] MEDS: Potassium Chloride Inj 30 MEQ in Dextrose 5%/NaCl 0.45% Inj 1,000 ML IV.SIG SCH (05:03)
[2018-05-03] MEDS ORDERED: fentaNYL Citrate Inj 250 MCG/5 ML Ampul ONE (09:08)
--- NOTE | 2018-05-03 09:50 | P.RAD ---
Post Procedure Progress Note - Pre Procedure Diagnosis (1) Esophageal stricture - Post Procedure Diagnosis (1) Esophageal stricture - Procedure Information Procedure Date: 05/03/18 Supervising Radiologist: Ezekiel Robertson Jr, MD Proceduralist/Assist: Angelina Maguire Estimated blood loss (mL): 0 Anesthesia: Conscious Sedation - Plan of Activity Patient to Unit: ROPU Patient Condition: Good See PACS Report for procedural detail/treatment. Feeding Tube Feeding Tube: Gastrostomy Procedure: Placement [place] Tube Size: 18 Findings: US and fluoro guided G tube placement. In good position. Plan: T fasteners will fall off on their own in 2-3 weeks.
[2018-05-03] MEDS ORDERED: Iohexol 350 MG/ML 50 ML Vial (for Rad Diag) IVCONTRAST ONE (09:58)
--- NOTE | 2018-05-03 11:05 | IR ---
EXAM DATE: 05/03/2018 10:09 AM EDT AGE/SEX: 57 years / Male INDICATIONS: Patient presents with dysphagia and gastroesophageal reflux disease. CLINICAL DATA: This is the patient's initial encounter. Patient reports that signs and symptoms have been present for 1 month and indicates a pain score of Nonresponsive. MEDICAL/SURGICAL HISTORY: Gastroesophageal reflux disease. Stroke. Ischemic CVA, Hernia None. COMPARISON: No prior exams available for comparison. FLUORO TIME (min): 5.1 IMAGE SERIES: 3 SEDATION TIME (min): 30 CONTRAST (cc): 10 Omnipaque (iohexol) 350 MEDICATION(S): 1mg midazolam (Versed) IV 50mcg fentanyl (Sublimaze) IV DEVICE(S): 18 [place] gastrostomy tube . . PROCEDURE: 1. Limited abdominal ultrasound. 2. Fluoroscopically guided gastrostomy tube placement. 3. Conscious sedation with continuous EKG and oximetry monitoring. The risks, benefits and alternatives to the procedure were explained and verbal and written consent w as obtained. The site was prepped in sterile fashion. Full sterile technique was used, including ca p, mask, sterile gloves and gown and a large sterile sheet. Hand hygiene and 2% chlorhexidine and/or betadine/alcohol prep was utilized per protocol for cutaneous antisepsis. The skin and subcutaneous tissues were infiltrated with local anesthetic solution. Sterile gel and sterile probe cover were u tilized for ultrasound guidance. Ultrasound was used to tucker the position of the liver. The stomach was insufflated with room air. Th ree percutaneous fasteners were placed to secure the anterior gastric wall. A small incision was made between the fasteners. The stomach was accessed with an 18 gauge needle. A n 0.035 wire was advanced into the small bowel. The tract was dilated. The gastrostomy tube was int roduced through a peel-away sheath. The position was confirmed with an injection of contrast. Conscious sedation was performed with the prescribed dosages and duration as above in the presence of an independent trained radiology nurse to assist in the monitoring of the patient. EKG and oximetry remained stable throughout the procedure. The patient tolerated the procedure well and there were n o complications. The patient was sent to post anesthesia recovery in stable condition. CONCLUSION: 1. Uncomplicated gastrostomy tube placement as above. Electronically signed by: Ezekiel Robertson MD 05/03/2018 11:03 AM EDT
[2018-05-03] MEDS: Sodium Chloride 0.9% 2 ML Flush BID IV.FLUSH SCH (12:19)
--- NOTE | 2018-05-03 12:57 | P.PNGI ---
Subjective Interval history: Patient laying supine in bed No acute distress PEG tube inserted by IR, dressing clean dry and intact. <Alessandra Blas - Last Filed: 05/03/18 12:49> Physical Exam Vital signs: Vital Signs 05/02/18 13:00 05/02/18 14:00 05/02/18 15:00 Temperature 97.6 F Pulse Rate 104 H 88 88 Respiratory Rate 20 Blood Pressure 124/88 Pulse Oximetry 96 05/02/18 16:00 05/02/18 17:00 05/02/18 17:05 Temperature Pulse Rate 86 76 77 Respiratory Rate 16 Blood Pressure Pulse Oximetry 96 05/02/18 18:00 05/02/18 19:00 05/02/18 20:00 Temperature 97.6 F Pulse Rate 98 H 93 H 84 Respiratory Rate 18 Blood Pressure 124/76 Pulse Oximetry 99 99 05/02/18 21:00 05/02/18 21:28 05/02/18 22:00 Temperature Pulse Rate 90 85 89 Respiratory Rate 20 Blood Pressure Pulse Oximetry 99 05/02/18 23:00 05/03/18 00:00 05/03/18 01:00 Temperature 98.0 F Pulse Rate 84 98 H 87 Respiratory Rate 18 Blood Pressure 123/83 Pulse Oximetry 100 05/03/18 02:00 05/03/18 03:00 05/03/18 04:00 Temperature 97.6 F Pulse Rate 84 89 88 Respiratory Rate 18 Blood Pressure 119/85 Pulse Oximetry 100 05/03/18 04:53 05/03/18 05:00 05/03/18 06:00 Temperature Pulse Rate 90 82 96 H Respiratory Rate 18 Blood Pressure Pulse Oximetry 05/03/18 07:00 05/03/18 09:55 05/03/18 10:06 Temperature 97.0 F L 97 F L Pulse Rate 86 89 85 Respiratory Rate 20 20 Blood Pressure 106/78 106/67 Pulse Oximetry 99 95 05/03/18 10:22 05/03/18 11:00 Temperature 97.0 F L Pulse Rate 81 83 Respiratory Rate 20 16 Blood Pressure 97/76 L 127/89 Pulse Oximetry 95 100 Intake & Output 05/02/18 05/03/18 05/03/18 18:59 06:59 18:59 Intake Total 1500 / 1500 1245 / 1245 100 / 100 Output Total 450 / 450 400 / 400 Balance 1050 / 1050 845 / 845 100 / 100 Weight 60.6 kg Intake: IV 1500 / 1500 1245 / 1245 100 / 100 D5W/1/2NS + KCL 30 mEq Inj 1, 1000 / 1000 000 ML @ 75 mls/hr IV.CONT . [id number] [facility] Rx#:[id number] Magnesium Sulfate 1 gm/D5W 100 200 / 200 ml Premix 100 ML @ 100 mls/hr IV.SIG Q1H [facility] Rx#:[id number] KCl Inj 30 MEQ In D5W/1/2 NS 865 / 865 Inj 1,000 ML @ 75 mls/hr IV.SIG .[id number] [facility] Rx#:[id number] Glycophos 30 Mmol In NS Inj 250 280 / 280 ML @ 40 mls/hr IV.SIG ONCE ONE Rx#:[id number] Rocephin Inj 1,000 MG In NS Inj 100 / 100 100 / 100 100 ML @ 200 mls/hr IV.SIG Q24H [facility] Rx#:[id number] Flagyl 500 MG Inj 100 ML @ 100 200 / 200 100 / 100 mls/hr IV.SIG Q8H [facility] Rx#: [id number] Oral 0 / 0 Output: Urine 450 / 450 400 / 400 - Constitutional no acute distress - Routine HEENT Exam Head: Present: normocephalic - Routine Respiratory Exam Present: CTA bilaterally. Absent: accessory muscle use - Routine Abdominal Exam Present: soft, normoactive bowel sounds. Absent: tenderness, distended, guarding, firm - Routine Skin Exam Present: dry, warm <Blas,Alessandra - Last Filed: 05/03/18 12:49> Vital signs: Vital Signs 05/02/18 18:00 05/02/18 19:00 05/02/18 20:00 Temperature 97.6 F Pulse Rate 98 H 93 H 84 Respiratory Rate 18 Blood Pressure 124/76 Pulse Oximetry 99 99 05/02/18 21:00 05/02/18 21:28 05/02/18 22:00 Temperature Pulse Rate 90 85 89 Respiratory Rate 20 Blood Pressure Pulse Oximetry 99 05/02/18 23:00 05/03/18 00:00 05/03/18 01:00 Temperature 98.0 F Pulse Rate 84 98 H 87 Respiratory Rate 18 Blood Pressure 123/83 Pulse Oximetry 100 05/03/18 02:00 05/03/18 03:00 05/03/18 04:00 Temperature 97.6 F Pulse Rate 84 89 88 Respiratory Rate 18 Blood Pressure 119/85 Pulse Oximetry 100 05/03/18 04:53 05/03/18 05:00 05/03/18 06:00 Temperature Pulse Rate 90 82 96 H Respiratory Rate 18 Blood Pressure Pulse Oximetry 05/03/18 07:00 05/03/18 08:00 05/03/18 09:00 Temperature Pulse Rate 86 88 92 H Respiratory Rate Blood Pressure Pulse Oximetry 100 05/03/18 09:55 05/03/18 10:06 05/03/18 10:22 Temperature 97.0 F L 97 F L Pulse Rate 89 85 81 Respiratory Rate 20 20 20 Blood Pressure 106/78 106/67 97/76 L Pulse Oximetry 99 95 95 05/03/18 11:00 05/03/18 12:00 05/03/18 13:00 Temperature 97.0 F L Pulse Rate 83 88 90 Respiratory Rate 16 Blood Pressure 127/89 Pulse Oximetry 100 05/03/18 14:00 05/03/18 16:57 Temperature Pulse Rate 92 H 92 H Respiratory Rate 16 Blood Pressure Pulse Oximetry Intake & Output 05/02/18 05/03/18 05/03/18 18:59 06:59 18:59 Intake Total 1500 / 1500 1245 / 1245 200 / 200 Output Total 450 / 450 400 / 400 Balance 1050 / 1050 845 / 845 200 / 200 Weight 60.6 kg Intake: IV 1500 / 1500 1245 / 1245 200 / 200 D5W/1/2NS + KCL 30 mEq Inj 1, 1000 / 1000 000 ML @ 75 mls/hr IV.CONT . [id number] [facility] Rx#:[id number] Magnesium Sulfate 1 gm/D5W 100 200 / 200 ml Premix 100 ML @ 100 mls/hr IV.SIG Q1H [facility] Rx#:[id number] KCl Inj 30 MEQ In D5W/1/2 NS 865 / 865 Inj 1,000 ML @ 75 mls/hr IV.SIG .[id number] [facility] Rx#:[id number] Glycophos 30 Mmol In NS Inj 250 280 / 280 ML @ 40 mls/hr IV.SIG ONCE ONE Rx#:[id number] Rocephin Inj 1,000 MG In NS Inj 100 / 100 100 / 100 100 ML @ 200 mls/hr IV.SIG Q24H [facility] Rx#:[id number] Flagyl 500 MG Inj 100 ML @ 100 200 / 200 100 / 100 100 / 100 mls/hr IV.SIG Q8H [facility] Rx#: [id number] Oral 0 / 0 Output: Urine 450 / 450 400 / 400 <Nicholas Ruiz E - Last Filed: 05/03/18 17:20> Results - Labs CBC & Chem 7: 05/02/18 05:36 05/02/18 05:36 - Imaging Impressions Gastrostomy Tube Placement 05/03/18 00:00 CONCLUSION: 1. Uncomplicated gastrostomy tube placement as above. <Alessandra Blas - Last Filed: 05/03/18 12:49> - Labs CBC & Chem 7: 05/02/18 05:36 05/02/18 05:36 - Imaging Impressions Gastrostomy Tube Placement 05/03/18 00:00 CONCLUSION: 1. Uncomplicated gastrostomy tube placement as above. <Nicholas Ruiz E - Last Filed: 05/03/18 17:20> Assessment and Plan (1) Dysphagia Status: Acute Code(s): R13.10 - Dysphagia, unspecified (2) Esophageal stricture Status: Acute Code(s): K22.2 - Esophageal obstruction - Plan 05/03/2018 Dysphagia/esophageal stricture/PEG placement PEG tube placed by IR this a.m. Abdomen soft nontender, dressing to site intact. No drainage or sign of infection noted. We will begin trickle feeds at 1630 to goal rate of 45 mL's per hour as per dietary recommendation. Patient to remain n.p.o.-nothing by mouth. Plan -Vital 1.5 trickle to goal rate of 45 mL's per hour: Dietitian recommendation appreciated -Start tube feedings at 1630 today -Free water flushes -Check residual every 6 hours -Patient to have nothing by mouth -Supportive care -Further recommendations to follow This patient has been seen by myself and Dr. Ruiz and this note is written on his behalf - Attending Attestation Dr. Ruiz <Alessandra Blas - Last Filed: 05/03/18 12:49> (1) Dysphagia Status: Acute Code(s): R13.10 - Dysphagia, unspecified (2) Esophageal stricture Status: Acute Code(s): K22.2 - Esophageal obstruction - Plan Patient seen and examined Agree with above history and physical Continue with current supportive care Monitor labs Regarding his esophageal stricture we will make decisions once he has received sufficient treatment for the esophagitis and the inflammation This is neither urgent nor emergent at this point with the patient having a PEG tube for nutrition and hydration Patient to follow-up with GI post discharge Not much to add at this point from a GI perspective we will sign off <Nicholas Ruiz E - Last Filed: 05/03/18 17:20>
--- NOTE | 2018-05-03 14:54 | P.PN ---
Subjective Interval history: opens eyes NAD does not communicate Physical Exam Vital signs: Vital Signs 05/02/18 15:00 05/02/18 16:00 05/02/18 17:00 Temperature 97.6 F Pulse Rate 88 86 76 Respiratory Rate 20 Blood Pressure 124/88 Pulse Oximetry 96 96 05/02/18 17:05 05/02/18 18:00 05/02/18 19:00 Temperature 97.6 F Pulse Rate 77 98 H 93 H Respiratory Rate 16 18 Blood Pressure 124/76 Pulse Oximetry 99 05/02/18 20:00 05/02/18 21:00 05/02/18 21:28 Temperature Pulse Rate 84 90 85 Respiratory Rate 20 Blood Pressure Pulse Oximetry 99 99 05/02/18 22:00 05/02/18 23:00 05/03/18 00:00 Temperature 98.0 F Pulse Rate 89 84 98 H Respiratory Rate 18 Blood Pressure 123/83 Pulse Oximetry 100 05/03/18 01:00 05/03/18 02:00 05/03/18 03:00 Temperature 97.6 F Pulse Rate 87 84 89 Respiratory Rate 18 Blood Pressure 119/85 Pulse Oximetry 100 05/03/18 04:00 05/03/18 04:53 05/03/18 05:00 Temperature Pulse Rate 88 90 82 Respiratory Rate 18 Blood Pressure Pulse Oximetry 05/03/18 06:00 05/03/18 07:00 05/03/18 08:00 Temperature Pulse Rate 96 H 86 88 Respiratory Rate Blood Pressure Pulse Oximetry 100 05/03/18 09:00 05/03/18 09:55 05/03/18 10:06 Temperature 97.0 F L 97 F L Pulse Rate 92 H 89 85 Respiratory Rate 20 20 Blood Pressure 106/78 106/67 Pulse Oximetry 99 95 05/03/18 10:22 05/03/18 11:00 05/03/18 12:00 Temperature 97.0 F L Pulse Rate 81 83 88 Respiratory Rate 20 16 Blood Pressure 97/76 L 127/89 Pulse Oximetry 95 100 05/03/18 13:00 05/03/18 14:00 Temperature Pulse Rate 90 92 H Respiratory Rate Blood Pressure Pulse Oximetry Intake & Output 05/02/18 05/03/18 05/03/18 18:59 06:59 18:59 Intake Total 1500 / 1500 1245 / 1245 200 / 200 Output Total 450 / 450 400 / 400 Balance 1050 / 1050 845 / 845 200 / 200 Weight 60.6 kg Intake: IV 1500 / 1500 1245 / 1245 200 / 200 D5W/1/2NS + KCL 30 mEq Inj 1, 1000 / 1000 000 ML @ 75 mls/hr IV.CONT . [id number] [facility] Rx#:[id number] Magnesium Sulfate 1 gm/D5W 100 200 / 200 ml Premix 100 ML @ 100 mls/hr IV.SIG Q1H [facility] Rx#:[id number] KCl Inj 30 MEQ In D5W/1/2 NS 865 / 865 Inj 1,000 ML @ 75 mls/hr IV.SIG .[id number] [facility] Rx#:[id number] Glycophos 30 Mmol In NS Inj 250 280 / 280 ML @ 40 mls/hr IV.SIG ONCE ONE Rx#:[id number] Rocephin Inj 1,000 MG In NS Inj 100 / 100 100 / 100 100 ML @ 200 mls/hr IV.SIG Q24H [facility] Rx#:[id number] Flagyl 500 MG Inj 100 ML @ 100 200 / 200 100 / 100 100 / 100 mls/hr IV.SIG Q8H [facility] Rx#: [id number] Oral 0 / 0 Output: Urine 450 / 450 400 / 400 Narrative: GENERAL: Non verbal. SKIN: multiple ecchymosis on all four extremities. HEAD: Normocephalic. EYES: No scleral icterus. No injection or drainage. NECK: Supple, trachea midline. No JVD. CARDIOVASCULAR: Regular rate and rhythm without murmurs, gallops, or rubs. RESPIRATORY: Breath sounds equal bilaterally. No accessory muscle use. GASTROINTESTINAL: Abdomen soft, non-tender, nondistended. MUSCULOSKELETAL: No cyanosis, or edema. BACK: Nontender without obvious deformity. No CVA tenderness. Results - Labs CBC & Chem 7: 05/02/18 05:36 05/02/18 05:36 - Imaging Impressions Gastrostomy Tube Placement 05/03/18 00:00 CONCLUSION: 1. Uncomplicated gastrostomy tube placement as above. Assessment and Plan - Plan impression Hemoptysis,minor respiratory failure pneumonia due to recurrent aspiration oesophageal dilitation S/P CVA HYPERBILIRUBINEMIA plan o2 as needed pulmonary toilet outlook poor
--- NOTE | 2018-05-03 15:32 | P.PN ---
Subjective Interval history: This is a pleasant 57 y/o Male with GERD, history of ischemic CVA with right sided Hemiparesis, who came to ER with Dysphagia, cough, SOB, has severe tobacco dependence, found Hypoxic in ER. 05/02: Patient stable seen in his bedroom, non verbal, multiple ecchymosis on four extremities, ventilator specialist following, has Hemoptysis minor, respiratory failure, Pneumonia due to recurrent aspiration, esophageal Dilatation, no nausea, vomit or diarrhea, discussed with nurse Miss Petty. 05/03: Seen in his bedroom, no nausea, vomit or diarrhea, seen by GI specialist , PEG tube placed by Interventional Radiology, abdomen soft to site intact, recommended for Vital Trickle to goal at rate 45ml/hr. Start tube feedings at 1630 hours today, Free water flushes, Check residual every six hours, NPO. Physical Exam Vital signs: Vital Signs 05/02/18 16:00 05/02/18 17:00 05/02/18 17:05 Temperature Pulse Rate 86 76 77 Respiratory Rate 16 Blood Pressure Pulse Oximetry 96 05/02/18 18:00 05/02/18 19:00 05/02/18 20:00 Temperature 97.6 F Pulse Rate 98 H 93 H 84 Respiratory Rate 18 Blood Pressure 124/76 Pulse Oximetry 99 99 05/02/18 21:00 05/02/18 21:28 05/02/18 22:00 Temperature Pulse Rate 90 85 89 Respiratory Rate 20 Blood Pressure Pulse Oximetry 99 05/02/18 23:00 05/03/18 00:00 05/03/18 01:00 Temperature 98.0 F Pulse Rate 84 98 H 87 Respiratory Rate 18 Blood Pressure 123/83 Pulse Oximetry 100 05/03/18 02:00 05/03/18 03:00 05/03/18 04:00 Temperature 97.6 F Pulse Rate 84 89 88 Respiratory Rate 18 Blood Pressure 119/85 Pulse Oximetry 100 05/03/18 04:53 05/03/18 05:00 05/03/18 06:00 Temperature Pulse Rate 90 82 96 H Respiratory Rate 18 Blood Pressure Pulse Oximetry 05/03/18 07:00 05/03/18 08:00 05/03/18 09:00 Temperature Pulse Rate 86 88 92 H Respiratory Rate Blood Pressure Pulse Oximetry 100 05/03/18 09:55 05/03/18 10:06 05/03/18 10:22 Temperature 97.0 F L 97 F L Pulse Rate 89 85 81 Respiratory Rate 20 20 20 Blood Pressure 106/78 106/67 97/76 L Pulse Oximetry 99 95 95 05/03/18 11:00 05/03/18 12:00 05/03/18 13:00 Temperature 97.0 F L Pulse Rate 83 88 90 Respiratory Rate 16 Blood Pressure 127/89 Pulse Oximetry 100 05/03/18 14:00 Temperature Pulse Rate 92 H Respiratory Rate Blood Pressure Pulse Oximetry Intake & Output 05/02/18 05/03/18 05/03/18 18:59 06:59 18:59 Intake Total 1500 / 1500 1245 / 1245 200 / 200 Output Total 450 / 450 400 / 400 Balance 1050 / 1050 845 / 845 200 / 200 Weight 60.6 kg Intake: IV 1500 / 1500 1245 / 1245 200 / 200 D5W/1/2NS + KCL 30 mEq Inj 1, 1000 / 1000 000 ML @ 75 mls/hr IV.CONT . [id number] [facility] Rx#:[id number] Magnesium Sulfate 1 gm/D5W 100 200 / 200 ml Premix 100 ML @ 100 mls/hr IV.SIG Q1H [facility] Rx#:[id number] KCl Inj 30 MEQ In D5W/1/2 NS 865 / 865 Inj 1,000 ML @ 75 mls/hr IV.SIG .[id number] [facility] Rx#:[id number] Glycophos 30 Mmol In NS Inj 250 280 / 280 ML @ 40 mls/hr IV.SIG ONCE ONE Rx#:[id number] Rocephin Inj 1,000 MG In NS Inj 100 / 100 100 / 100 100 ML @ 200 mls/hr IV.SIG Q24H [facility] Rx#:[id number] Flagyl 500 MG Inj 100 ML @ 100 200 / 200 100 / 100 100 / 100 mls/hr IV.SIG Q8H [facility] Rx#: [id number] Oral 0 / 0 Output: Urine 450 / 450 400 / 400 Narrative: GENERAL: Non verbal. SKIN: multiple ecchymosis on all four extremities. HEAD: Normocephalic. EYES: No scleral icterus. No injection or drainage. NECK: Supple, trachea midline. No JVD. CARDIOVASCULAR: Regular rate and rhythm without murmurs, gallops, or rubs. RESPIRATORY: Breath sounds equal bilaterally. No accessory muscle use. GASTROINTESTINAL: Abdomen soft, non-tender, nondistended. PEG tube in place. MUSCULOSKELETAL: No cyanosis, or edema. BACK: Nontender without obvious deformity. No CVA tenderness. Results - Labs CBC & Chem 7: 05/02/18 05:36 05/02/18 05:36 - Imaging Impressions Gastrostomy Tube Placement 05/03/18 00:00 CONCLUSION: 1. Uncomplicated gastrostomy tube placement as above. - Procedures (1) Esophageal stricture - Post Procedure Diagnosis (1) Esophageal stricture - Procedure Information Procedure Date: 05/03/18 Supervising Radiologist: Ezekiel Robertson Jr, MD Proceduralist/Assist: Angelina Maguire Estimated blood loss (mL): 0 Anesthesia: Conscious Sedation - Plan of Activity Patient to Unit: ROPU Patient Condition: Good See PACS Report for procedural detail/treatment. Feeding Tube Feeding Tube: Gastrostomy Procedure: Placement Micronesian Tube Size: 18 Findings: US and fluoro guided G tube placement. In good position. Plan: T fasteners will fall off on their own in 2-3 weeks. Assessment and Plan - Plan This is a pleasant 57 y/o Male with GERD, history of ischemic CVA with right sided Hemiparesis, who came to ER with Dysphagia, cough, SOB, has severe tobacco dependence, found Hypoxic in ER. 1. Acute hypoxic hypercapnic respiratory failure likely secondary to aspiration/ Tobacco dependence CTA of the chest is negative for pulmonary embolus however shows debris is in the right mainstem bronchus which could be contributing the patient's symptoms. suspected chemical pneumonitis versus pneumonia. as per ventilator specialist recommendations are to continue supplemental oxygen and antibiotics. Bronchodilator, Mucolytic incentive spirometry. strongly recommended to stop smoking, Aspiration pneumonia likely secondary to achalasia. Continue on ceftriaxone and metronidazole. 05/02: ventilator specialist following, has Hemoptysis minor, respiratory failure, Pneumonia due to recurrent aspiration, esophageal Dilatation. 2. Dysphagia and Esophageal Stricture/Achalasia seen on Upper GI series. CT of the chest also showed diffusely dilated esophagus which contains debris, and findings concerning of achalasia. GI was consulted and recommends a barium swallow, NPO as per Speech Therapy recommendations, EGD found Severe Achalasia, continue PPIs 05/03: PEG tube placed by Interventional Radiology, abdomen soft to site intact, recommended for Vital Trickle to goal at rate 45ml/hr. Start tube feedings at 1630 hours today, Free water flushes, Check residual every six hours, NPO, 3. Electrolyte derangement replaced and following 4. History of CVA continue Aspirin 5. Nonsustained ventricular tachycardia. 8 beats of V. tach reported today. Will replace phosphorus and monitor on telemetry. //DVT prophylaxis: Subcu heparin for DVT prophylaxis Code Status: Full code. Discussed Condition With: patient and Nurse Miss Petty. Discharge Planning: DCF following Once cleared by specialists.
[2018-05-04] MEDS: Potassium Chloride Inj 30 MEQ in Dextrose 5%/NaCl 0.45% Inj 1,000 ML IV.SIG SCH ×2 (00:29→18:02)
[2018-05-04] MEDS: Sodium Chloride 0.9% 2 ML Flush BID IV.FLUSH SCH ×3 (04:13→20:54)
[2018-05-04] MEDS: Pantoprazole Inj 40 MG Vial IV.PUSH SCH ×2 (04:15→17:52)
--- NOTE | 2018-05-04 09:15 | P.PN ---
Subjective Interval history: This is a pleasant 57 y/o Male with GERD, history of ischemic CVA with right sided Hemiparesis, who came to ER with Dysphagia, cough, SOB, has severe tobacco dependence, found Hypoxic in ER. 05/02: Patient stable seen in his bedroom, non verbal, multiple ecchymosis on four extremities, transcription specialist following, has Hemoptysis minor, respiratory failure, Pneumonia due to recurrent aspiration, esophageal Dilatation, no nausea, vomit or diarrhea, discussed with nurse Miss Petty. 05/03: Seen in his bedroom, no nausea, vomit or diarrhea, seen by GI specialist , PEG tube placed by Interventional Radiology, abdomen soft to site intact, recommended for Vital Trickle to goal at rate 45ml/hr. Start tube feedings at 1630 hours today, Free water flushes, Check residual every six hours, NPO. 05/04: Stable in his bedroom, discussed with nurse was not able to give tube feedings due to high residue, given Metoclopramide and did not improve asked her to call GI specialist, he has Urinary retention and asked for Straight cath and was not able to be performed by the Nurse for this reason was asked for Urology specialist, patient status post [place] cath placement, with diagnosis of Metal stenosis/Urinary retention, no nausea, vomit or diarrhea. Physical Exam Vital signs: Vital Signs 05/03/18 09:55 05/03/18 10:06 05/03/18 10:22 Temperature 97.0 F L 97 F L Pulse Rate 89 85 81 Respiratory Rate 20 20 20 Blood Pressure 106/78 106/67 97/76 L Pulse Oximetry 99 95 95 05/03/18 11:00 05/03/18 12:00 05/03/18 13:00 Temperature 97.0 F L Pulse Rate 78 88 90 Respiratory Rate 16 Blood Pressure 127/89 Pulse Oximetry 100 05/03/18 14:00 05/03/18 15:00 05/03/18 16:00 Temperature 97.7 F Pulse Rate 92 H 85 86 Respiratory Rate 16 Blood Pressure 120/83 Pulse Oximetry 98 05/03/18 16:57 05/03/18 17:00 05/03/18 18:00 Temperature Pulse Rate 92 H 90 96 H Respiratory Rate 16 Blood Pressure Pulse Oximetry 05/03/18 19:00 05/03/18 19:32 05/03/18 20:00 Temperature 98.2 F Pulse Rate 97 H 95 H 87 Respiratory Rate 20 20 Blood Pressure 116/83 Pulse Oximetry 98 97 98 05/03/18 23:00 05/04/18 00:00 05/04/18 03:00 Temperature 98.4 F 98.3 F Pulse Rate 98 H 91 H 100 H Respiratory Rate 20 18 Blood Pressure 112/85 105/81 Pulse Oximetry 99 99 05/04/18 04:00 05/04/18 04:38 05/04/18 05:00 Temperature Pulse Rate 92 H 97 H 102 H Respiratory Rate 16 Blood Pressure Pulse Oximetry 05/04/18 06:00 05/04/18 07:00 05/04/18 07:53 Temperature 98.5 F Pulse Rate 106 H 107 H 103 H Respiratory Rate 18 Blood Pressure 105/75 Pulse Oximetry 95 05/04/18 07:55 05/04/18 08:05 05/04/18 08:06 Temperature Pulse Rate 105 H Respiratory Rate 16 Blood Pressure Pulse Oximetry 98 95 95 Intake & Output 05/03/18 05/04/18 05/04/18 18:59 06:59 18:59 Intake Total 1215 / 1215 270 / 270 Output Total 400 / 400 400 / 400 Balance 815 / 815 -130 / -130 Weight 61.8 kg Intake: IV 1215 / 1215 200 / 200 KCl Inj 30 MEQ In D5W/1/2 NS 1015 / 1015 Inj 1,000 ML @ 75 mls/hr IV.SIG .[id number] [facility] Rx#:[id number] Rocephin Inj 1,000 MG In NS Inj 100 / 100 100 ML @ 200 mls/hr IV.SIG Q24H [facility] Rx#:[id number] Flagyl 500 MG Inj 100 ML @ 100 100 / 100 200 / 200 mls/hr IV.SIG Q8H [facility] Rx#: [id number] Oral 0 / 0 Tube Feeding 40 / 40 Tube Irrigant 30 / 30 Output: Urine 400 / 400 Urine Amount (Catheter) 400 / 400 Condom 400 / 400 Other: # Incontinent Voids 1 # Incontinent Bowel Movements 0 Narrative: GENERAL: Non verbal. SKIN: multiple ecchymosis on all four extremities. HEAD: Normocephalic. EYES: No scleral icterus. No injection or drainage. NECK: Supple, trachea midline. No JVD. CARDIOVASCULAR: Regular rate and rhythm without murmurs, gallops, or rubs. RESPIRATORY: Breath sounds equal bilaterally. No accessory muscle use. GASTROINTESTINAL: hard mass on lower abdomen evident Urinary bladder. MUSCULOSKELETAL: No cyanosis, or edema. BACK: Nontender without obvious deformity. No CVA tenderness. - Urinary Catheter Management Condom Cath placed during this visit: no Indwelling Urethral Catheter Cath placed during this visit: yes Reason for continuing: Acute urinary retention Insertion date: 05/04/18 Results - Labs CBC & Chem 7: 05/02/18 05:36 05/02/18 05:36 - Imaging Impressions Gastrostomy Tube Placement 05/03/18 00:00 CONCLUSION: 1. Uncomplicated gastrostomy tube placement as above. - Procedures (1) Esophageal stricture - Post Procedure Diagnosis (1) Esophageal stricture - Procedure Information Procedure Date: 05/03/18 Supervising Radiologist: Ezekiel Robertson Jr, MD Proceduralist/Assist: Angelina Maguire Estimated blood loss (mL): 0 Anesthesia: Conscious Sedation - Plan of Activity Patient to Unit: ROPU Patient Condition: Good See PACS Report for procedural detail/treatment. Feeding Tube Feeding Tube: Gastrostomy Procedure: Placement English Tube Size: 18 Findings: US and fluoro guided G tube placement. In good position. Plan: T fasteners will fall off on their own in 2-3 weeks. Assessment and Plan - Plan This is a pleasant 57 y/o Male with GERD, history of ischemic CVA with right sided Hemiparesis, who came to ER with Dysphagia, cough, SOB, has severe tobacco dependence, found Hypoxic in ER. 1. Acute hypoxic hypercapnic respiratory failure likely secondary to aspiration/ Tobacco dependence CTA of the chest is negative for pulmonary embolus however shows debris is in the right mainstem bronchus which could be contributing the patient's symptoms. suspected chemical pneumonitis versus pneumonia. as per transcription specialist recommendations are to continue supplemental oxygen and antibiotics. Bronchodilator, Mucolytic incentive spirometry. strongly recommended to stop smoking, Aspiration pneumonia likely secondary to achalasia. Continue on ceftriaxone and metronidazole. 05/02: transcription specialist following, has Hemoptysis minor, respiratory failure, Pneumonia due to recurrent aspiration, esophageal Dilatation. the nurse was not able to start tube feedings due to high residue. 2. Dysphagia and Esophageal Stricture/Achalasia seen on Upper GI series. CT of the chest also showed diffusely dilated esophagus which contains debris, and findings concerning of achalasia. GI was consulted and recommends a barium swallow, NPO as per Speech Therapy recommendations, EGD found Severe Achalasia, continue PPIs 05/03: PEG tube placed by Interventional Radiology, abdomen soft to site intact, recommended for Vital Trickle to goal at rate 45ml/hr. Start tube feedings at 1630 hours today, Free water flushes, Check residual every six hours, NPO, 3. Electrolyte derangement replaced and following, follow labs in am 4. History of CVA continue Aspirin 5. Nonsustained ventricular tachycardia. 8 beats of V. tach reported today. Will replace phosphorus and monitor on telemetry. 6. Metal stenosis/Urinary crisis specialist Straight cath and was not able to be performed by the Nurse for this reason was asked for Urology specialist, patient status post [place] cath placement. //DVT prophylaxis: Subcu heparin for DVT prophylaxis Code Status: Full code. Discussed Condition With: Patient and nurse Miss Duvall Discharge Planning: DCF following Once cleared by specialists.
--- NOTE | 2018-05-04 16:56 | P.CONURO ---
History of Present Illness Service: Consult date: 05/04/18 Requesting Physician: Abhijeet Peace Reason for Consult: Urinary retention Primary Care Provider: UNKNOWN History of Present Illness: 57-year-old gentleman with history CVA admitted for further workup and management of nausea vomiting and abdominal pain. Patient has been nonverbal since his CVA. He has been managed with a condom catheter for urinary incontinence. Since being admitted to the hospital the patient has been producing urine however it appeared that he was having some skin breakdown on the penis from condom catheter usage and decision was made to DC the condom catheter and implement clean intermittent catheterization. Nursing staff reported that they cannot pass a catheter and thus a urology consult was placed. I was unable to obtain any additional history from the patient as he was nonverbal. There is been no apparent history of gross hematuria. BUN and creatinine levels have been normal. Review of Systems unobtainable due to mental status PMFSH - History History Provided By: Patient, Family Member, Set [employer] / EMT - Medical History Medical History: Medical History (Last Reviewed 05/02/18 @ 09:01 by Vanessa Wan) Hernia History of stroke No significant past surgical history Smoker Speech impairment - Tobacco History Second Hand Smoke Exposure: Yes Tobacco Use In Past 30 Days: Yes Smoking Status: Current every day smoker Tobacco Type: Cigarettes - Alcohol History How Often Do You Have a Drink Containing Alcohol: Monthly or less - Substance Use History Substance History: No History of Abuse - Travel History Recent Travel in the [place] Within the Last 8 Weeks: No Recent Travel Out of the Country Within the Last 8 Weeks: No - Immunization History Tetanus Immunization: Unsure Medications and Allergies Active Medications: Active Medications Hydrocodone Bitart/Acetaminophen (Lincoln 5/325) 1 tab G-TUBE Q4H PRN PRN Reason: PAIN SCALE 6 TO 10 Acetylcysteine (Mucomyst 20% Neb) 2 ml NEB Q6HR NEB DAMASO Last Admin: 05/04/18 15:28 Dose: 2 ml Albuterol (Duoneb Neb (Prn)) 1 ampul NEB Q2HR NEB PRN PRN Reason: SHORTNESS OF BREATH/WHEEZING Last Admin: 05/04/18 15:29 Dose: 1 ampul Albuterol (Duoneb Neb (Damaso)) 1 ampul NEB Q6HR ALT NEB DAMASO Last Admin: 05/04/18 07:53 Dose: 1 ampul Aspirin (Aspirin Supp) 300 mg RECTAL DAILY DAMASO Last Admin: 05/01/18 09:02 Dose: Not Given Ceftriaxone Sodium 1,000 mg/ (Sodium Chloride) 100 mls @ 200 mls/hr IV.SIG Q24H [facility] Last Infusion: 05/04/18 09:47 Dose: Infused Metronidazole/Sodium Chloride (Flagyl 500 Mg Inj) 100 mls @ 100 mls/hr IV.SIG Q8H [facility] Last Infusion: 05/04/18 10:30 Dose: Infused Potassium Chloride 30 meq/ (Dextrose/Sodium Chloride) 1,015 mls @ 75 mls/hr IV.SIG .[id number] [facility] Last Admin: 05/04/18 00:29 Dose: 75 mls/hr Nystatin (Mycostatin Cream) 1 applicatio TOPICAL BID [facility] Pantoprazole Sodium (Protonix Inj) 40 mg IV.PUSH Q12H [facility] Last Admin: 05/04/18 04:15 Dose: 40 mg Sodium Chloride (Ns Flush) 2 ml IV.FLUSH PRN PRN PRN Reason: FLUSH AFTER USING IV ACCESS Last Admin: 04/28/18 09:22 Dose: 2 ml Sodium Chloride (Ns Flush) 2 ml IV.FLUSH BID [facility] Last Admin: 05/04/18 09:13 Dose: 2 ml Allergies Allergy/AdvReac Type Severity Reaction Status Date / Time No Known Allergies Allergy Verified 04/25/18 20:36 Physical Exam Vital Signs - 24 hr 05/03/18 16:57 05/03/18 17:00 05/03/18 18:00 Temperature Pulse Rate 92 H 90 96 H Respiratory Rate 16 Blood Pressure Pulse Oximetry 05/03/18 19:00 05/03/18 19:32 05/03/18 20:00 Temperature 98.2 F Pulse Rate 97 H 95 H 87 Respiratory Rate 20 20 Blood Pressure 116/83 Pulse Oximetry 98 97 98 05/03/18 23:00 05/04/18 00:00 05/04/18 03:00 Temperature 98.4 F 98.3 F Pulse Rate 98 H 91 H 100 H Respiratory Rate 20 18 Blood Pressure 112/85 105/81 Pulse Oximetry 99 99 05/04/18 04:00 05/04/18 04:38 05/04/18 05:00 Temperature Pulse Rate 92 H 97 H 102 H Respiratory Rate 16 Blood Pressure Pulse Oximetry 05/04/18 06:00 05/04/18 07:00 05/04/18 07:53 Temperature 98.5 F Pulse Rate 106 H 107 H 103 H Respiratory Rate 18 Blood Pressure 105/75 Pulse Oximetry 95 05/04/18 07:55 05/04/18 08:05 05/04/18 08:06 Temperature Pulse Rate 105 H Respiratory Rate 16 Blood Pressure Pulse Oximetry 98 95 95 05/04/18 15:29 05/04/18 15:30 Temperature Pulse Rate 105 H Respiratory Rate 16 Blood Pressure Pulse Oximetry 95 Physical Exam: GENERAL: Lying quietly in bed and in no apparent distress. SKIN: No rashes, ecchymoses or lesions. Cool and dry. HEAD: Atraumatic. Normocephalic. No temporal or scalp tenderness. EYES: Pupils equal round and reactive. Extraocular motions intact. No scleral icterus. No injection or drainage. ENT: Nose without bleeding, purulent drainage or septal hematoma. Throat without erythema, tonsillar hypertrophy or exudate. Uvula midline. Airway patent. NECK: Trachea midline. No JVD or lymphadenopathy. Supple, nontender, no meningeal signs. GASTROINTESTINAL: Abdomen soft, non-tender, nondistended. No hepato-splenomegaly , or palpable masses. No guarding. GENITOURINARY: Small area less than 1/2 cm of erythema at the ventral aspect of penis at distal shaft, meatus markedly stenotic and bladder markedly distended. MUSCULOSKELETAL: Extremities without clubbing, cyanosis, or edema. No joint tenderness, effusion, or edema noted. No calf tenderness. Negative Homans sign bilaterally. NEUROLOGICAL: Altered mental status, nonverbal Result Diagrams: 05/02/18 05:36 05/02/18 05:36 Imaging: ITS Impressions Abdomen X-Ray 04/25/18 20:59 CONCLUSION: No acute findings. Chest CTA 04/26/18 00:00 CONCLUSION: 1. No evidence of pulmonary embolism. 2. Minimal scattered patchy densities are noted within the lower and upper lobes consistent with possible pneumonia. Debris is noted within the right mainstem bronchus and extending into the right upper and lower lobe bronchi. 3. The diffusely dilated esophagus which contains debris raising the possibility of achalasia or achalasia-like process. Outpatient evaluation of this finding could be performed if requested. 4. Coronary artery calcifications. 5. Calcified nonobstructing left renal calculi. Head CT 04/26/18 11:11 CONCLUSION: 1. 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 2. Denies sinus air-fluid level. . Pulmonary Perfusion Imaging 04/26/18 11:11 CONCLUSION: 1. Intermediate probability for pulmonary embolus on the left. Venous Doppler Study 04/26/18 11:11 CONCLUSION: 1. The study is negative for bilateral lower extremity deep venous thrombosis. Chest X-Ray 04/30/18 00:00 CONCLUSION: Right lower lobe pneumonia. Gastrostomy Tube Placement 05/03/18 00:00 CONCLUSION: 1. Uncomplicated gastrostomy tube placement as above. Assessment and Plan - Assessment (1) Meatal stenosis Status: Acute (2) Urinary retention Code(s): R33.9 - Retention of urine, unspecified Status: Acute - Plan Urologic impression: 1. Meatal stenosis 2. 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 Maintain Chapin catheter to gravity drainage 2. Consider Chapin removal with voiding trial when overall medical condition improved 3 Nothing further to add at this time and will be available as needed. Procedures - Catheter Insertion (Urinary) Date of insertion: 05/04/18 Time of insertion: 15:30 Replacement of catheter present on admission: No Reason for placing: Chronic Urinary Retention Bladder scan/ultrasound used before catheterization: No Estimated amount of urine (mLs): 1,000 Antiseptic solution prep: Povidone-Iodine Topical anesthesia used: No Catheter type/location: Indwelling Urethral Catheter Size (Czech): 16 Catheter balloon size (mL): 10 Catheter balloon amount: 10 Results: consulted Procedure performed: without complications Complications: None Comment: Meatus dilated prior to Chapin placement
--- NOTE | 2018-05-04 19:38 | P.PNGI ---
Subjective Interval history: Patient laying in bed, seems to be comfortable, arousable but not very responsive, I was called because there was significant residual with the PEG tube feeding up to 450 cc, Physical Exam Vital signs: Vital Signs 05/03/18 20:00 05/03/18 23:00 05/04/18 00:00 Temperature 98.4 F Pulse Rate 87 98 H 91 H Respiratory Rate 20 Blood Pressure 112/85 Pulse Oximetry 98 99 05/04/18 03:00 05/04/18 04:00 05/04/18 04:38 Temperature 98.3 F Pulse Rate 100 H 92 H 97 H Respiratory Rate 18 16 Blood Pressure 105/81 Pulse Oximetry 99 05/04/18 05:00 05/04/18 06:00 05/04/18 07:00 Temperature Pulse Rate 102 H 106 H 107 H Respiratory Rate Blood Pressure Pulse Oximetry 05/04/18 07:53 05/04/18 07:55 05/04/18 08:00 Temperature 98.5 F Pulse Rate 103 H 105 H 110 H Respiratory Rate 18 16 Blood Pressure 105/75 Pulse Oximetry 95 98 05/04/18 08:05 05/04/18 08:06 05/04/18 09:00 Temperature Pulse Rate 110 H Respiratory Rate Blood Pressure Pulse Oximetry 95 95 05/04/18 12:00 05/04/18 13:00 05/04/18 14:00 Temperature Pulse Rate 104 H 104 H 100 H Respiratory Rate Blood Pressure Pulse Oximetry 05/04/18 15:00 05/04/18 15:29 05/04/18 15:30 Temperature Pulse Rate 106 H 105 H Respiratory Rate 16 Blood Pressure Pulse Oximetry 95 05/04/18 16:00 05/04/18 17:00 05/04/18 18:00 Temperature 97.8 F Pulse Rate 108 H 104 H 104 H Respiratory Rate 18 Blood Pressure 94/68 L Pulse Oximetry 95 Intake & Output 05/04/18 05/04/18 05/05/18 06:59 18:59 06:59 Intake Total 270 / 270 1315 / 1315 Output Total 400 / 400 1700 / 1700 Balance -130 / -130 -385 / -385 Weight 61.8 kg Intake: IV 200 / 200 1315 / 1315 KCl Inj 30 MEQ In D5W/1/2 NS 1015 / 1015 Inj 1,000 ML @ 75 mls/hr IV.SIG .[id number] DAMASO Rx#:[id number] Rocephin Inj 1,000 MG In NS Inj 100 / 100 100 ML @ 200 mls/hr IV.SIG Q24H DAMASO Rx#:[id number] Flagyl 500 MG Inj 100 ML @ 100 200 / 200 200 / 200 mls/hr IV.SIG Q8H DAMASO Rx#: [id number] Oral 0 / 0 0 / 0 Tube Feeding 40 / 40 Tube Irrigant 30 / 30 Output: Urine Amount (Catheter) 400 / 400 1700 / 1700 Condom 400 / 400 Indwelling Urethral Catheter 1700 / 1700 Other: # Incontinent Voids 4 # Incontinent Bowel Movements 0 - Constitutional no acute distress - Routine HEENT Exam Head: Present: normocephalic, atraumatic ENT: Present: mucous membranes moist - Routine Neck Exam Present: supple, full ROM - Routine Respiratory Exam Present: CTA bilaterally - Routine Cardiovascular Exam Present: RRR, S1, S2 - Routine Abdominal Exam Present: soft, tenderness (PEG tube site without any issues) - Urinary Catheter Management Condom Cath placed during this visit: no Indwelling Urethral Catheter Cath placed during this visit: yes Reason for continuing: Acute urinary retention Insertion date: 05/04/18 Results - Labs CBC & Chem 7: 05/02/18 05:36 05/02/18 05:36 - Procedures (1) Esophageal stricture - Post Procedure Diagnosis (1) Esophageal stricture - Procedure Information Procedure Date: 05/03/18 Supervising Radiologist: Ezekiel Robertson Jr, MD Proceduralist/Assist: Angelina Maguire Estimated blood loss (mL): 0 Anesthesia: Conscious Sedation - Plan of Activity Patient to Unit: ROPU Patient Condition: Good See PACS Report for procedural detail/treatment. Feeding Tube Feeding Tube: Gastrostomy Procedure: Placement Hebrew Tube Size: 18 Findings: US and fluoro guided G tube placement. In good position. Plan: T fasteners will fall off on their own in 2-3 weeks. Assessment and Plan (1) Dysphagia Status: Acute Code(s): R13.10 - Dysphagia, unspecified (2) Esophageal stricture Status: Acute Code(s): K22.2 - Esophageal obstruction - Plan Patient seen and examined Agree with above history and physical Continue with current supportive care Monitor labs Regarding his esophageal stricture we will make decisions once he has received sufficient treatment for the esophagitis and the inflammation This is neither urgent nor emergent at this point with the patient having a PEG tube for nutrition and hydration Patient to follow-up with GI post discharge Not much to add at this point from a GI perspective we will sign off 05/04/2018 patient has a high residual, I held the PEG tube feeding for about 6 hours, there was no residual anymore, we will restart feeding at 10 cc and increase slowly with monitoring of the feeding residual Try to reduce pain medication as much as possible, if residual continue may use Reglan to induce motility of the stomach
[2018-05-04] MEDS: KCL 30 mEq/D5W/NaCl 0.45% Inj 1,000 ML IV.SIG SCH (23:31)
[2018-05-05] MEDS: Pantoprazole Inj 40 MG Vial IV.PUSH SCH ×2 (04:38→17:32)
[2018-05-05] MEDS: Sodium Chloride 0.9% 2 ML Flush BID IV.FLUSH SCH ×2 (09:43→21:11)
--- NOTE | 2018-05-05 10:20 | P.PN ---
Subjective Interval history: This is a pleasant 57 y/o Male with GERD, history of ischemic CVA with right sided Hemiparesis, who came to ER with Dysphagia, cough, SOB, has severe tobacco dependence, found Hypoxic in ER. 05/02: Patient stable seen in his bedroom, non verbal, multiple ecchymosis on four extremities, staffing specialist following, has Hemoptysis minor, respiratory failure, Pneumonia due to recurrent aspiration, esophageal Dilatation, no nausea, vomit or diarrhea, discussed with nurse Miss Petty. 05/03: Seen in his bedroom, no nausea, vomit or diarrhea, seen by GI specialist , PEG tube placed by Interventional Radiology, abdomen soft to site intact, recommended for Vital Trickle to goal at rate 45ml/hr. Start tube feedings at 1630 hours today, Free water flushes, Check residual every six hours, NPO. 05/04: Stable in his bedroom, discussed with nurse was not able to give tube feedings due to high residue, given Metoclopramide and did not improve asked her to call GI specialist, he has Urinary retention and asked for Straight cath and was not able to be performed by the Nurse for this reason was asked for Urology specialist, patient status post Chapin cath placement, with diagnosis of Metal stenosis/Urinary retention. 05/05: Seen in his bedroom, he is in status post PEG tube placement and Chapin Cath placed by Urology specialist recommended to leave it there due to Meatal stenosis, he will take decision about his Esophageal Stricture, continue management for esophagitis, not urgent procedure as per GI specialist, at this time discussed in his bedroom with patient who is non verbal, but looks oriented, was held PEG tube feedings for six hours by GI specialist due to high residue yesterday, recommended to reduce Narcotic use but continue Metoclopramide, no nausea, vomit or diarrhea. Physical Exam Vital signs: Vital Signs 05/04/18 12:00 05/04/18 13:00 05/04/18 14:00 Temperature Pulse Rate 104 H 104 H 100 H Respiratory Rate Blood Pressure Pulse Oximetry 05/04/18 15:00 05/04/18 15:29 05/04/18 15:30 Temperature Pulse Rate 106 H 105 H Respiratory Rate 16 Blood Pressure Pulse Oximetry 95 05/04/18 16:00 05/04/18 17:00 05/04/18 18:00 Temperature 97.8 F Pulse Rate 108 H 104 H 104 H Respiratory Rate 18 Blood Pressure 94/68 L Pulse Oximetry 95 05/04/18 19:00 05/04/18 20:00 05/04/18 21:00 Temperature 97.9 F Pulse Rate 106 H 110 H 94 H Respiratory Rate 20 Blood Pressure 93/75 L Pulse Oximetry 95 95 05/04/18 21:08 05/04/18 22:00 05/04/18 23:00 Temperature 96.9 F L Pulse Rate 99 H 100 H 104 H Respiratory Rate 18 20 Blood Pressure 92/57 L Pulse Oximetry 94 L 05/05/18 00:00 05/05/18 00:45 05/05/18 01:00 Temperature Pulse Rate 100 H 100 H 102 H Respiratory Rate 18 Blood Pressure Pulse Oximetry 05/05/18 02:00 05/05/18 03:00 05/05/18 04:00 Temperature 98.2 F Pulse Rate 102 H 116 H 114 H Respiratory Rate 20 Blood Pressure 101/69 Pulse Oximetry 95 05/05/18 05:00 05/05/18 05:52 05/05/18 07:00 Temperature Pulse Rate 112 H 113 H 98 H Respiratory Rate Blood Pressure Pulse Oximetry 05/05/18 07:29 05/05/18 08:06 Temperature 97.8 F Pulse Rate 98 H 97 H Respiratory Rate 22 18 Blood Pressure 95/67 L Pulse Oximetry 95 Intake & Output 05/04/18 05/05/18 05/05/18 18:59 06:59 18:59 Intake Total 1315 / 1315 300 / 300 Output Total 1700 / 1700 850 / 850 Balance -385 / -385 -550 / -550 Weight 61.1 kg Intake: IV 1315 / 1315 300 / 300 KCl Inj 30 MEQ In D5W/1/2 NS 1015 / 1015 200 / 200 Inj 1,000 ML @ 75 mls/hr IV.SIG .[id number] DAMASO Rx#:[id number] Rocephin Inj 1,000 MG In NS Inj 100 / 100 100 ML @ 200 mls/hr IV.SIG Q24H DAMASO Rx#:[id number] Flagyl 500 MG Inj 100 ML @ 100 200 / 200 100 / 100 mls/hr IV.SIG Q8H DAMASO Rx#: [id number] Oral 0 / 0 0 / 0 Output: Urine 850 / 850 Urine Amount (Catheter) 1700 / 1700 Indwelling Urethral Catheter 1700 / 1700 Other: # Incontinent Voids 4 Narrative: GENERAL: Non verbal. SKIN: multiple ecchymosis on all four extremities. HEAD: Normocephalic. EYES: No scleral icterus. No injection or drainage. NECK: Supple, trachea midline. No JVD. CARDIOVASCULAR: Regular rate and rhythm without murmurs, gallops, or rubs. RESPIRATORY: Breath sounds equal bilaterally. No accessory muscle use. GASTROINTESTINAL: Soft, non tender, PEG tube in place. dressed area. MUSCULOSKELETAL: No cyanosis, or edema. BACK: Nontender without obvious deformity. No CVA tenderness. - Urinary Catheter Management Condom Cath placed during this visit: no Indwelling Urethral Catheter Cath placed during this visit: yes Reason for continuing: Acute urinary retention Insertion date: 05/04/18 Results - Labs CBC & Chem 7: 05/02/18 05:36 05/02/18 05:36 - Imaging Abdomen X-Ray 04/25/18 20:59 CONCLUSION: No acute findings. Chest CTA 04/26/18 00:00 CONCLUSION: 1. No evidence of pulmonary embolism. 2. Minimal scattered patchy densities are noted within the lower and upper lobes consistent with possible pneumonia. Debris is noted within the right mainstem bronchus and extending into the right upper and lower lobe bronchi. 3. The diffusely dilated esophagus which contains debris raising the possibility of achalasia or achalasia-like process. Outpatient evaluation of this finding could be performed if requested. 4. Coronary artery calcifications. 5. Calcified nonobstructing left renal calculi. Head CT 04/26/18 11:11 CONCLUSION: 1. 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 2. Denies sinus air-fluid level. Pulmonary Perfusion Imaging 04/26/18 11:11 CONCLUSION: 1. Intermediate probability for pulmonary embolus on the left. Venous Doppler Study 04/26/18 11:11 CONCLUSION: 1. The study is negative for bilateral lower extremity deep venous thrombosis. Chest X-Ray 04/30/18 00:00 CONCLUSION: Right lower lobe pneumonia. Gastrostomy Tube Placement 05/03/18 00:00 CONCLUSION: 1. Uncomplicated gastrostomy tube placement as above. - Procedures (1) Esophageal stricture - Post Procedure Diagnosis (1) Esophageal stricture - Procedure Information Procedure Date: 05/03/18 Supervising Radiologist: Ezekiel Robertson Jr, MD Proceduralist/Assist: Angelina Maguire Estimated blood loss (mL): 0 Anesthesia: Conscious Sedation - Plan of Activity Patient to Unit: ROPU Patient Condition: Good See PACS Report for procedural detail/treatment. Feeding Tube Feeding Tube: Gastrostomy Procedure: Placement Wallisian Tube Size: 18 Findings: US and fluoro guided G tube placement. In good position. Plan: T fasteners will fall off on their own in 2-3 weeks. Assessment and Plan - Plan This is a pleasant 57 y/o Male with GERD, history of ischemic CVA with right sided Hemiparesis, who came to ER with Dysphagia, cough, SOB, has severe tobacco dependence, found Hypoxic in ER. 1. Acute hypoxic hypercapnic respiratory failure likely secondary to aspiration/ Tobacco dependence CTA of the chest is negative for pulmonary embolus however shows debris is in the right mainstem bronchus which could be contributing the patient's symptoms. suspected chemical pneumonitis versus pneumonia. as per staffing specialist recommendations are to continue supplemental oxygen and antibiotics. Bronchodilator, Mucolytic incentive spirometry. strongly recommended to stop smoking, Aspiration pneumonia likely secondary to achalasia. Continue on ceftriaxone and metronidazole. 05/02: staffing specialist following, has Hemoptysis minor, respiratory failure, Pneumonia due to recurrent aspiration, esophageal Dilatation. Nurse will re start tube feedings now and follow residue, GI specialist following recommended no narcotic use and continue Metoclopramide. 2. Dysphagia and Esophageal Stricture/Achalasia seen on Upper GI series. CT of the chest also showed diffusely dilated esophagus which contains debris, and findings concerning of achalasia. GI was consulted and recommends a barium swallow, NPO as per Speech Therapy recommendations, EGD found Severe Achalasia, continue PPIs 05/03: PEG tube placed by Interventional Radiology, abdomen soft to site intact, recommended for Vital Trickle to goal at rate 45ml/hr. Start tube feedings at 1630 hours today, Free water flushes, Check residual every six hours, NPO, 05/04 will continue management recommended by GI specialist and at this time will try again tube feedings. and follow residue yesterday was high. 3. Electrolyte derangement replaced and following, asked for BMP stat. 4. History of CVA continue Aspirin 5. Nonsustained ventricular tachycardia. 8 beats of V. tach reported today. Will replace phosphorus and monitor on telemetry. 6. Metal stenosis/Urinary direct care specialist Straight cath and was not able to be performed by the Nurse for this reason was asked for Urology specialist, patient status post Chapin cath placement. 7. Severe Tobacco dependence as per His , and the last time he was smoking was one month ago as per His he was able to go with her help to the restroom at home. he uses a cane at home. //DVT prophylaxis: Subcu heparin for DVT prophylaxis Code Status: Full code. Discussed Condition With: Patient, Nurse Miss Duvall Mrs. Chapis Richardson she is his POA. Discharge Planning: DCF following Once cleared by specialists.
[2018-05-05 11:46] LABS: Anion Gap 8 meq/L (5-15); Blood Urea Nitrogen 8 mg/dL (7-18); Calcium 7.8 mg/dL (8.5-10.1); Carbon Dioxide 24.9 meq/L (21.0-32.0); Chloride 108 meq/L (98-107); Glomerular Filtration Rate Greater Than 89 mL/min (>89); Glucose,Random 92 mg/dL (74-106); Potassium 3.9 meq/L (3.5-5.1); Sodium 141 meq/L (136-145)
[2018-05-05] MEDS: KCL 30 mEq/D5W/NaCl 0.45% Inj 1,000 ML IV.SIG SCH (19:11)
[2018-05-06] MEDS: KCL 30 mEq/D5W/NaCl 0.45% Inj 1,000 ML IV.SIG SCH ×2 (00:03→19:33)
[2018-05-06] MEDS: Pantoprazole Inj 40 MG Vial IV.PUSH SCH ×2 (05:00→16:03)
[2018-05-06] MEDS: Sodium Chloride 0.9% 2 ML Flush BID IV.FLUSH SCH ×2 (08:54→22:43)
--- NOTE | 2018-05-06 09:33 | P.PN ---
Subjective Interval history: This is a pleasant 57 y/o Male with GERD, history of ischemic CVA with right sided Hemiparesis, who came to ER with Dysphagia, cough, SOB, has severe tobacco dependence, found Hypoxic in ER. 05/02: Patient stable seen in his bedroom, non verbal, multiple ecchymosis on four extremities, auto adjudication specialist following, has Hemoptysis minor, respiratory failure, Pneumonia due to recurrent aspiration, esophageal Dilatation, no nausea, vomit or diarrhea, discussed with nurse Miss Petty. 05/03: Seen in his bedroom, no nausea, vomit or diarrhea, seen by GI specialist , PEG tube placed by Interventional Radiology, abdomen soft to site intact, recommended for Vital Trickle to goal at rate 45ml/hr. Start tube feedings at 1630 hours today, Free water flushes, Check residual every six hours, NPO. 05/04: Stable in his bedroom, discussed with nurse was not able to give tube feedings due to high residue, given Metoclopramide and did not improve asked her to call GI specialist, he has Urinary retention and asked for Straight cath and was not able to be performed by the Nurse for this reason was asked for Urology specialist, patient status post Chap[place] cath placement, with diagnosis of Metal stenosis/Urinary retention. 05/05: Seen in his bedroom, he is in status post PEG tube placement and Chap[place] Cath placed by Urology specialist recommended to leave it there due to Meatal stenosis, he will take decision about his Esophageal Stricture, continue management for esophagitis, not urgent procedure as per GI specialist, at this time discussed in his bedroom with patient who is non verbal, but looks oriented, was held PEG tube feedings for six hours by GI specialist due to high residue yesterday, recommended to reduce Narcotic use but continue Metoclopramide. 05/06: Stable in his bedroom, discussed with nurse Miss Duvall his present no changes to anterior management. Continue high residue but continue tube feedings at low rate. Physical Exam Vital signs: Vital Signs 05/05/18 10:00 05/05/18 11:00 05/05/18 11:59 Temperature 99.1 F Pulse Rate 102 H 96 H 98 H Respiratory Rate 20 Blood Pressure 95/67 L Pulse Oximetry 05/05/18 12:00 05/05/18 13:00 05/05/18 14:00 Temperature Pulse Rate 98 H 96 H 98 H Respiratory Rate Blood Pressure Pulse Oximetry 05/05/18 15:00 05/05/18 16:00 05/05/18 17:00 Temperature 97.6 F Pulse Rate 84 89 78 Respiratory Rate 20 Blood Pressure 94/67 L Pulse Oximetry 05/05/18 18:00 05/05/18 19:00 05/05/18 20:00 Temperature 96.8 F L Pulse Rate 84 93 H 86 Respiratory Rate 18 Blood Pressure 93/56 L Pulse Oximetry 97 05/05/18 21:00 05/05/18 21:07 05/05/18 22:00 Temperature Pulse Rate 86 92 H 102 H Respiratory Rate 18 Blood Pressure Pulse Oximetry 94 L 05/05/18 23:00 05/06/18 00:00 05/06/18 01:00 Temperature 97.8 F Pulse Rate 95 H 88 92 H Respiratory Rate 20 Blood Pressure 101/64 Pulse Oximetry 96 05/06/18 02:00 05/06/18 03:00 05/06/18 03:20 Temperature 97.9 F Pulse Rate 90 96 H 92 H Respiratory Rate 18 18 Blood Pressure 106/70 Pulse Oximetry 99 05/06/18 04:00 05/06/18 05:00 05/06/18 06:00 Temperature Pulse Rate 100 H 107 H 97 H Respiratory Rate Blood Pressure Pulse Oximetry 05/06/18 07:00 05/06/18 07:41 Temperature Pulse Rate 99 H 88 Respiratory Rate 18 Blood Pressure Pulse Oximetry 99 Intake & Output 05/05/18 05/06/18 05/06/18 18:59 06:59 18:59 Intake Total 200 / 200 1200 / 1200 Output Total 1100 / 1100 700 / 700 Balance -900 / -900 500 / 500 Weight 61.5 kg Intake: IV 200 / 200 1200 / 1200 D5W/1/2NS + KCL 30 mEq Inj 1, 1000 / 1000 000 ML @ 75 mls/hr IV.SIG . [id number] DAMASO Rx#:[id number] Rocephin Inj 1,000 MG In NS Inj 100 / 100 100 ML @ 200 mls/hr IV.SIG Q24H [facility]ASO Rx#:[id number] Flagyl 500 MG Inj 100 ML @ 100 100 / 100 200 / 200 mls/hr IV.SIG Q8H DAMASO Rx#: [id number] Oral 0 / 0 Output: Urine 700 / 700 Urine Amount (Catheter) 1100 / 1100 Indwelling Urethral Catheter 1100 / 1100 Narrative: GENERAL: Non verbal. SKIN: multiple ecchymosis on all four extremities. HEAD: Normocephalic. EYES: No scleral icterus. No injection or drainage. NECK: Supple, trachea midline. No JVD. CARDIOVASCULAR: Regular rate and rhythm without murmurs, gallops, or rubs. RESPIRATORY: Breath sounds equal bilaterally. No accessory muscle use. GASTROINTESTINAL: Soft, non tender, PEG tube in place. dressed area. Chapin cath in place. MUSCULOSKELETAL: No cyanosis, or edema. BACK: Nontender without obvious deformity. No CVA tenderness. - Urinary Catheter Management Condom Cath placed during this visit: no Indwelling Urethral Catheter Cath placed during this visit: yes Reason for continuing: Acute urinary retention Insertion date: 05/04/18 Results - Labs CBC & Chem 7: 05/02/18 05:36 05/05/18 11:14 Laboratory Results - last 24 hr 05/05/18 11:14 Sodium 141 Potassium 3.9 Chloride 108 H Carbon Dioxide 24.9 Anion Gap 8 BUN 8 Creatinine 0.49 L Estimated GFR Greater than 89 Random Glucose 92 Calcium 7.8 L - Imaging Abdomen X-Ray 04/25/18 20:59 CONCLUSION: No acute findings. Chest CTA 04/26/18 00:00 CONCLUSION: 1. No evidence of pulmonary embolism. 2. Minimal scattered patchy densities are noted within the lower and upper lobes consistent with possible pneumonia. Debris is noted within the right mainstem bronchus and extending into the right upper and lower lobe bronchi. 3. The diffusely dilated esophagus which contains debris raising the possibility of achalasia or achalasia-like process. Outpatient evaluation of this finding could be performed if requested. 4. Coronary artery calcifications. 5. Calcified nonobstructing left renal calculi. Head CT 04/26/18 11:11 CONCLUSION: 1. 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 2. Denies sinus air-fluid level. Pulmonary Perfusion Imaging 04/26/18 11:11 CONCLUSION: 1. Intermediate probability for pulmonary embolus on the left. Venous Doppler Study 04/26/18 11:11 CONCLUSION: 1. The study is negative for bilateral lower extremity deep venous thrombosis. Chest X-Ray 04/30/18 00:00 CONCLUSION: Right lower lobe pneumonia. Gastrostomy Tube Placement 05/03/18 00:00 CONCLUSION: 1. Uncomplicated gastrostomy tube placement as above. - Procedures (1) Esophageal stricture - Post Procedure Diagnosis (1) Esophageal stricture - Procedure Information Procedure Date: 05/03/18 Supervising Radiologist: Ezekiel Robertson Jr, MD Proceduralist/Assist: Angelina Maguire Estimated blood loss (mL): 0 Anesthesia: Conscious Sedation - Plan of Activity Patient to Unit: ROPU Patient Condition: Good See PACS Report for procedural detail/treatment. Feeding Tube Feeding Tube: Gastrostomy Procedure: Placement Luxembourgish Tube Size: 18 Findings: US and fluoro guided G tube placement. In good position. Plan: T fasteners will fall off on their own in 2-3 weeks. Assessment and Plan - Plan This is a pleasant 57 y/o Male with GERD, history of ischemic CVA with right sided Hemiparesis, who came to ER with Dysphagia, cough, SOB, has severe tobacco dependence, found Hypoxic in ER. 1. Acute hypoxic hypercapnic respiratory failure likely secondary to aspiration/ Tobacco dependence CTA of the chest is negative for pulmonary embolus however shows debris is in the right mainstem bronchus which could be contributing the patient's symptoms. suspected chemical pneumonitis versus pneumonia. as per auto adjudication specialist recommendations are to continue supplemental oxygen and antibiotics. Bronchodilator, Mucolytic incentive spirometry. strongly recommended to stop smoking, Aspiration pneumonia likely secondary to achalasia. Continue on ceftriaxone and metronidazole. 05/02: auto adjudication specialist following, has Hemoptysis minor, respiratory failure, Pneumonia due to recurrent aspiration, esophageal Dilatation. Nurse will re start tube feedings now and follow residue, GI specialist following recommended no narcotic use and continue Metoclopramide. 2. Dysphagia and Esophageal Stricture/Achalasia seen on Upper GI series. CT of the chest also showed diffusely dilated esophagus which contains debris, and findings concerning of achalasia. GI was consulted and recommends a barium swallow, NPO as per Speech Therapy recommendations, EGD found Severe Achalasia, continue PPIs 05/03: PEG tube placed by Interventional Radiology, abdomen soft to site intact, recommended for Vital Trickle to goal at rate 45ml/hr. Start tube feedings at 1630 hours today, Free water flushes, Check residual every six hours, NPO, 05/04 will continue management recommended by GI specialist and at this time will try again tube feedings. and follow residue yesterday was high. 05/05: continue high residue but giving low rate tube feedings. 3. Electrolyte derangement replaced and following, asked for BMP stat. 4. History of CVA continue Aspirin 5. Nonsustained ventricular tachycardia. 8 beats of V. tach reported today. Will replace phosphorus and monitor on telemetry. 6. Meatal stenosis/Urinary resource specialist Straight cath and was not able to be performed by the Nurse for this reason was asked for Urology specialist, patient status post Chapin cath placement. 7. Severe Tobacco dependence as per His , and the last time he was smoking was one month ago discussed with Physical Therapy the patient will go to Rehab. //DVT prophylaxis: Subcu heparin for DVT prophylaxis Code Status: Full code Discussed Condition With: Patient and MDR. Discharge Planning: DCF following Once cleared by specialists.
--- NOTE | 2018-05-06 14:50 | P.PN ---
Subjective Interval history: ALERT NO SOB NO HEMOPTYSIS Physical Exam Vital signs: Vital Signs 05/05/18 15:00 05/05/18 16:00 05/05/18 17:00 Temperature 97.6 F Pulse Rate 84 89 78 Respiratory Rate 20 Blood Pressure 94/67 L Pulse Oximetry 05/05/18 18:00 05/05/18 19:00 05/05/18 20:00 Temperature 96.8 F L Pulse Rate 84 93 H 86 Respiratory Rate 18 Blood Pressure 93/56 L Pulse Oximetry 97 05/05/18 21:00 05/05/18 21:07 05/05/18 22:00 Temperature Pulse Rate 86 92 H 102 H Respiratory Rate 18 Blood Pressure Pulse Oximetry 94 L 05/05/18 23:00 05/06/18 00:00 05/06/18 01:00 Temperature 97.8 F Pulse Rate 95 H 88 92 H Respiratory Rate 20 Blood Pressure 101/64 Pulse Oximetry 96 05/06/18 02:00 05/06/18 03:00 05/06/18 03:20 Temperature 97.9 F Pulse Rate 90 96 H 92 H Respiratory Rate 18 18 Blood Pressure 106/70 Pulse Oximetry 99 05/06/18 04:00 05/06/18 05:00 05/06/18 06:00 Temperature Pulse Rate 100 H 107 H 97 H Respiratory Rate Blood Pressure Pulse Oximetry 05/06/18 07:00 05/06/18 07:41 05/06/18 08:00 Temperature 97.6 F Pulse Rate 99 H 88 Respiratory Rate 18 18 Blood Pressure 105/74 Pulse Oximetry 99 99 99 05/06/18 11:00 Temperature 98.1 F Pulse Rate 87 Respiratory Rate 18 Blood Pressure 101/63 Pulse Oximetry 97 Intake & Output 05/05/18 05/06/18 05/06/18 18:59 06:59 18:59 Intake Total 200 / 200 1200 / 1200 Output Total 1100 / 1100 700 / 700 Balance -900 / -900 500 / 500 Weight 61.5 kg Intake: IV 200 / 200 1200 / 1200 D5W/1/2NS + KCL 30 mEq Inj 1, 1000 / 1000 000 ML @ 75 mls/hr IV.SIG . [id number] [facility]ASO Rx#:[id number] Rocephin Inj 1,000 MG In NS Inj 100 / 100 100 ML @ 200 mls/hr IV.SIG Q24H [facility]ASO Rx#:[id number] Flagyl 500 MG Inj 100 ML @ 100 100 / 100 200 / 200 mls/hr IV.SIG Q8H [facility]ASO Rx#: [id number] Oral 0 / 0 Output: Urine 700 / 700 Urine Amount (Catheter) 1100 / 1100 Indwelling Urethral Catheter 1100 / 1100 Narrative: GENERAL: Non verbal. SKIN: multiple ecchymosis on all four extremities. HEAD: Normocephalic. EYES: No scleral icterus. No injection or drainage. NECK: Supple, trachea midline. No JVD. CARDIOVASCULAR: Regular rate and rhythm without murmurs, gallops, or rubs. RESPIRATORY: Breath sounds equal bilaterally. No accessory muscle use. GASTROINTESTINAL: Soft, non tender, PEG tube in place. dressed area. MUSCULOSKELETAL: No cyanosis, or edema. BACK: Nontender without obvious deformity. No CVA tenderness. - Urinary Catheter Management Condom Cath placed during this visit: no Indwelling Urethral Catheter Cath placed during this visit: yes Reason for continuing: Chronic Urinary Retention Insertion date: 05/04/18 Results - Labs CBC & Chem 7: 05/02/18 05:36 05/05/18 11:14 - Procedures (1) Esophageal stricture - Post Procedure Diagnosis (1) Esophageal stricture - Procedure Information Procedure Date: 05/03/18 Supervising Radiologist: Ezekiel Robertson Jr, MD Proceduralist/Assist: Angelina Maguire Estimated blood loss (mL): 0 Anesthesia: Conscious Sedation - Plan of Activity Patient to Unit: ROPU Patient Condition: Good See PACS Report for procedural detail/treatment. Feeding Tube Feeding Tube: Gastrostomy Procedure: Placement Chadian Tube Size: 18 Findings: US and fluoro guided G tube placement. In good position. Plan: T fasteners will fall off on their own in 2-3 weeks. Assessment and Plan - Plan impression Hemoptysis,minor, resolved respiratory failure pneumonia due to recurrent aspiration oesophageal dilitation S/P CVA HYPERBILIRUBINEMIA plan o2 as needed pulmonary toilet outlook poor F/U cxray
--- NOTE | 2018-05-06 15:04 | XR ---
EXAM DATE: 05/06/2018 3:00 PM EDT AGE/SEX: 57 years / Male INDICATIONS: Shortness of breath. CLINICAL DATA: This is the patient's subsequent encounter. Patient reports that signs and symptoms h ave been present for 1 month and indicates a pain score of 0/10. MEDICAL/SURGICAL HISTORY: Gastroesophageal reflux disease. Stroke. Ischemic CVA, Hernia None . [place] [facility] [place]. . FINDINGS: The examination demonstrates infiltrate in the left lower lobe. This is new compared to previous. The right lung base is clear. The heart is normal in size. The bony structures demonstrate an apparent o ld ununited right clavicular fracture. This is stable compared to previous. CONCLUSION: Left lower lobe infiltrate. Left clavicular fracture stable compared to prior. Electronically signed by: Ishmael Lemon MD 05/06/2018 3:02 PM EDT
[2018-05-07] MEDS: Pantoprazole Inj 40 MG Vial IV.PUSH SCH ×2 (06:09→16:46)
[2018-05-07] MEDS: KCL 30 mEq/D5W/NaCl 0.45% Inj 1,000 ML IV.SIG SCH (06:09)
[2018-05-07] MEDS: Sodium Chloride 0.9% 2 ML Flush BID IV.FLUSH SCH (10:04)
--- NOTE | 2018-05-07 15:51 | P.PN ---
Subjective Interval history: This is a pleasant 57 y/o Male with GERD, history of ischemic CVA with right sided Hemiparesis, who came to ER with Dysphagia, cough, SOB, has severe tobacco dependence, found Hypoxic in ER. 05/02: Patient stable seen in his bedroom, non verbal, multiple ecchymosis on four extremities, technology infusion specialist following, has Hemoptysis minor, respiratory failure, Pneumonia due to recurrent aspiration, esophageal Dilatation, no nausea, vomit or diarrhea, discussed with nurse Miss Petty. 05/03: Seen in his bedroom, no nausea, vomit or diarrhea, seen by GI specialist , PEG tube placed by Interventional Radiology, abdomen soft to site intact, recommended for Vital Trickle to goal at rate 45ml/hr. Start tube feedings at 1630 hours today, Free water flushes, Check residual every six hours, NPO. 05/04: Stable in his bedroom, discussed with nurse was not able to give tube feedings due to high residue, given Metoclopramide and did not improve asked her to call GI specialist, he has Urinary retention and asked for Straight cath and was not able to be performed by the Nurse for this reason was asked for Urology specialist, patient status post [place] cath placement, with diagnosis of Metal stenosis/Urinary retention. 05/05: Seen in his bedroom, he is in status post PEG tube placement and [place] Cath placed by Urology specialist recommended to leave it there due to Meatal stenosis, he will take decision about his Esophageal Stricture, continue management for esophagitis, not urgent procedure as per GI specialist, at this time discussed in his bedroom with patient who is non verbal, but looks oriented, was held PEG tube feedings for six hours by GI specialist due to high residue yesterday, recommended to reduce Narcotic use but continue Metoclopramide. 05/06: Stable in his bedroom, discussed with nurse Miss Duvall his present no changes to anterior management. Continue high residue but continue tube feedings at low rate. 05/07: Seen in his bedroom, his present today, he is working with Physical Therapy, technology infusion specialist following, no changes to anterior recommendations. no nausea, vomit or diarrhea, had some Constipation but then Improved and gave a BM. new CXR left lower lobe infiltrate. left clavicle fracture without change from before. Physical Exam Vital signs: Vital Signs 05/06/18 16:00 05/06/18 17:00 05/06/18 18:00 Temperature Pulse Rate 98 H 102 H 96 H Respiratory Rate Blood Pressure Pulse Oximetry 05/06/18 19:00 05/06/18 20:00 05/06/18 21:00 Temperature 97.0 F L Pulse Rate 93 H 96 H 106 H Respiratory Rate 20 Blood Pressure 99/68 L Pulse Oximetry 94 L 94 L 05/06/18 21:18 05/06/18 21:58 05/06/18 22:00 Temperature Pulse Rate 98 H 114 H Respiratory Rate 20 Blood Pressure Pulse Oximetry 94 L 05/06/18 23:00 05/06/18 23:54 05/07/18 00:00 Temperature 97.5 F L Pulse Rate 104 H 96 H 102 H Respiratory Rate 20 18 Blood Pressure 112/67 Pulse Oximetry 95 05/07/18 01:00 05/07/18 02:00 05/07/18 03:00 Temperature 97.2 F L Pulse Rate 112 H 80 98 H Respiratory Rate 20 Blood Pressure 134/80 Pulse Oximetry 98 05/07/18 04:00 05/07/18 04:28 05/07/18 05:00 Temperature Pulse Rate 106 H 89 106 H Respiratory Rate 18 Blood Pressure Pulse Oximetry 05/07/18 06:00 05/07/18 07:00 05/07/18 08:00 Temperature Pulse Rate 112 H 111 H 92 H Respiratory Rate Blood Pressure Pulse Oximetry 05/07/18 08:06 05/07/18 09:00 05/07/18 10:00 Temperature 97.5 F L Pulse Rate 108 H 112 H 105 H Respiratory Rate 20 19 Blood Pressure 107/67 Pulse Oximetry 94 L 95 05/07/18 11:00 05/07/18 12:00 05/07/18 13:00 Temperature Pulse Rate 101 H 102 H 96 H Respiratory Rate Blood Pressure Pulse Oximetry 05/07/18 13:17 05/07/18 14:59 05/07/18 15:11 Temperature 97.8 F Pulse Rate 108 H 95 H 89 Respiratory Rate 20 20 20 Blood Pressure 84/55 L 86/58 L Pulse Oximetry 92 L 95 Intake & Output 05/06/18 05/07/18 05/07/18 18:59 06:59 18:59 Intake Total 733 / 733 1200 / 1200 200 / 200 Output Total 2400 / 2400 1100 / 1100 Balance -1667 / -1667 100 / 100 200 / 200 Weight 60 kg Intake: IV 200 / 200 1200 / 1200 200 / 200 D5W/1/2NS + KCL 30 mEq Inj 1, 1000 / 1000 000 ML @ 75 mls/hr IV.SIG . [id number] DAMASO Rx#:[id number] Rocephin Inj 1,000 MG In NS Inj 100 / 100 100 / 100 100 ML @ 200 mls/hr IV.SIG Q24H DAMASO Rx#:[id number] Flagyl 500 MG Inj 100 ML @ 100 100 / 100 200 / 200 100 / 100 mls/hr IV.SIG Q8H DAMASO Rx#: [id number] Oral 0 / 0 Tube Feeding 473 / 473 Water Bolus Amount 60 / 60 Output: Urine 1100 / 1100 Urine Amount (Catheter) 2400 / 2400 Indwelling Urethral Catheter 2400 / 2400 Other: Date of Last Bowel Movement 05/07/18 Narrative: GENERAL: Non verbal. SKIN: multiple ecchymosis on all four extremities. HEAD: Normocephalic. EYES: No scleral icterus. No injection or drainage. NECK: Supple, trachea midline. No JVD. CARDIOVASCULAR: Regular rate and rhythm without murmurs, gallops, or rubs. RESPIRATORY: Breath sounds equal bilaterally. No accessory muscle use. GASTROINTESTINAL: Soft, non tender, PEG tube in place. dressed area. Chap[place] cath in place. MUSCULOSKELETAL: No cyanosis, or edema. BACK: Nontender without obvious deformity. No CVA tenderness. - Urinary Catheter Management Condom Cath placed during this visit: no Indwelling Urethral Catheter Cath placed during this visit: yes Reason for continuing: Acute urinary retention Insertion date: 05/04/18 Results - Labs CBC & Chem 7: 05/02/18 05:36 05/05/18 11:14 - Imaging Abdomen X-Ray 04/25/18 20:59 CONCLUSION: No acute findings. Chest CTA 04/26/18 00:00 CONCLUSION: 1. No evidence of pulmonary embolism. 2. Minimal scattered patchy densities are noted within the lower and upper lobes consistent with possible pneumonia. Debris is noted within the right mainstem bronchus and extending into the right upper and lower lobe bronchi. 3. The diffusely dilated esophagus which contains debris raising the possibility of achalasia or achalasia-like process. Outpatient evaluation of this finding could be performed if requested. 4. Coronary artery calcifications. 5. Calcified nonobstructing left renal calculi. Head CT 04/26/18 11:11 CONCLUSION: 1. 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 2. Denies sinus air-fluid level. Pulmonary Perfusion Imaging 04/26/18 11:11 CONCLUSION: 1. Intermediate probability for pulmonary embolus on the left. Venous Doppler Study 04/26/18 11:11 CONCLUSION: 1. The study is negative for bilateral lower extremity deep venous thrombosis. Gastrostomy Tube Placement 05/03/18 00:00 CONCLUSION: 1. Uncomplicated gastrostomy tube placement as above. Chest X-Ray 05/06/18 14:39 CONCLUSION: Left lower lobe infiltrate. Left clavicular fracture stable compared to prior. - Procedures (1) Esophageal stricture - Post Procedure Diagnosis (1) Esophageal stricture - Procedure Information Procedure Date: 05/03/18 Supervising Radiologist: Ezekiel Robertson Jr, MD Proceduralist/Assist: Angelina Maguire Estimated blood loss (mL): 0 Anesthesia: Conscious Sedation - Plan of Activity Patient to Unit: ROPU Patient Condition: Good See PACS Report for procedural detail/treatment. Feeding Tube Feeding Tube: Gastrostomy Procedure: Placement Thai Tube Size: 18 Findings: US and fluoro guided G tube placement. In good position. Plan: T fasteners will fall off on their own in 2-3 weeks. Assessment and Plan - Plan This is a pleasant 57 y/o Male with GERD, history of ischemic CVA with right sided Hemiparesis, who came to ER with Dysphagia, cough, SOB, has severe tobacco dependence, found Hypoxic in ER. 1. Acute hypoxic hypercapnic respiratory failure likely secondary to aspiration/ Tobacco dependence CTA of the chest is negative for pulmonary embolus however shows debris is in the right mainstem bronchus which could be contributing the patient's symptoms. suspected chemical pneumonitis versus pneumonia. as per technology infusion specialist recommendations are to continue supplemental oxygen and antibiotics. Bronchodilator, Mucolytic incentive spirometry. strongly recommended to stop smoking, Aspiration pneumonia likely secondary to achalasia. Continue on ceftriaxone and metronidazole. 05/02: technology infusion specialist following, has Hemoptysis minor, respiratory failure, Pneumonia due to recurrent aspiration, esophageal Dilatation. Nurse will re start tube feedings now and follow residue, GI specialist following recommended no narcotic use and continue Metoclopramide. new CXR left lower lobe infiltrate Left clavicle fracture stable. 2. Dysphagia and Esophageal Stricture/Achalasia seen on Upper GI series. CT of the chest also showed diffusely dilated esophagus which contains debris, and findings concerning of achalasia. GI was consulted and recommends a barium swallow, NPO as per Speech Therapy recommendations, EGD found Severe Achalasia, continue PPIs 05/03: PEG tube placed by Interventional Radiology, abdomen soft to site intact, recommended for Vital Trickle to goal at rate 45ml/hr. Start tube feedings at 1630 hours today, Free water flushes, Check residual every six hours, NPO, 05/04 will continue management recommended by GI specialist and at this time will try again tube feedings. and follow residue yesterday was high. 05/05: continue high residue but giving low rate tube feedings. 05/07: Stable continue tube feedings, DCF here to see the patient. 3. Electrolyte derangement replaced and following 4. History of CVA continue Aspirin 5. Nonsustained ventricular tachycardia. 8 beats of V. tach reported today. Will replace phosphorus and monitor on telemetry. 6. Meatal stenosis/Urinary geospatial specialist Straight cath and was not able to be performed by the Nurse for this reason was asked for Urology specialist, patient status post [place] cath placement. 7. Severe Tobacco dependence as per His , and the last time he was smoking was one month ago discussed with Physical Therapy the patient will go to Rehab. //DVT prophylaxis: Subcu heparin for DVT prophylaxis Code Status: Full code. Discussed Condition With: Patient and nurse Miss Duvall and MDR. Discharge Planning: DCF following Expected by tomorrow.
[2018-05-07] MEDS: Sod Chloride 0.9% Inj 1,000 ML IV.CONT SCH (16:45)
--- NOTE | 2018-05-07 19:03 | P.PN ---
Subjective Interval history: alert nad no sob cxray LLL ATELECTASIS/INFILTRATE PLAN O2 NEEDED PULM TOILET ANTIBX F/U CXRAY FEW DAYS Physical Exam Vital signs: Vital Signs 05/06/18 20:00 05/06/18 21:00 05/06/18 21:18 Temperature Pulse Rate 96 H 106 H 98 H Respiratory Rate 20 Blood Pressure Pulse Oximetry 94 L 05/06/18 21:58 05/06/18 22:00 05/06/18 23:00 Temperature 97.5 F L Pulse Rate 114 H 104 H Respiratory Rate 20 Blood Pressure 112/67 Pulse Oximetry 94 L 95 05/06/18 23:54 05/07/18 00:00 05/07/18 01:00 Temperature Pulse Rate 96 H 102 H 112 H Respiratory Rate 18 Blood Pressure Pulse Oximetry 05/07/18 02:00 05/07/18 03:00 05/07/18 04:00 Temperature 97.2 F L Pulse Rate 80 98 H 106 H Respiratory Rate 20 Blood Pressure 134/80 Pulse Oximetry 98 05/07/18 04:28 05/07/18 05:00 05/07/18 06:00 Temperature Pulse Rate 89 106 H 112 H Respiratory Rate 18 Blood Pressure Pulse Oximetry 05/07/18 07:00 05/07/18 08:00 05/07/18 08:06 Temperature Pulse Rate 111 H 92 H 108 H Respiratory Rate 20 Blood Pressure Pulse Oximetry 94 L 05/07/18 09:00 05/07/18 10:00 05/07/18 11:00 Temperature 97.5 F L Pulse Rate 112 H 105 H 101 H Respiratory Rate 19 Blood Pressure 107/67 Pulse Oximetry 95 05/07/18 12:00 05/07/18 13:00 05/07/18 13:17 Temperature Pulse Rate 102 H 96 H 108 H Respiratory Rate 20 Blood Pressure Pulse Oximetry 05/07/18 14:00 05/07/18 14:59 05/07/18 15:00 Temperature 97.8 F Pulse Rate 112 H 95 H 94 H Respiratory Rate 20 Blood Pressure 84/55 L Pulse Oximetry 92 L 05/07/18 15:11 05/07/18 16:00 05/07/18 16:43 Temperature Pulse Rate 89 96 H 92 H Respiratory Rate 20 20 Blood Pressure 86/58 L 88/56 L Pulse Oximetry 95 96 05/07/18 17:08 05/07/18 17:16 05/07/18 18:26 Temperature Pulse Rate 95 H 103 H Respiratory Rate Blood Pressure 98/71 L Pulse Oximetry Intake & Output 05/07/18 05/07/18 05/08/18 06:59 18:59 06:59 Intake Total 1200 / 1200 1250 / 1250 Output Total 1100 / 1100 1300 / 1300 Balance 100 / 100 -50 / -50 Weight 60 kg Intake: IV 1200 / 1200 950 / 950 D5W/1/2NS + KCL 30 mEq Inj 1, 1000 / 1000 650 / 650 000 ML @ 75 mls/hr IV.SIG . [id number] [facility] Rx#:[id number] Rocephin Inj 1,000 MG In NS Inj 100 / 100 100 ML @ 200 mls/hr IV.SIG Q24H [facility] Rx#:[id number] Flagyl 500 MG Inj 100 ML @ 100 200 / 200 200 / 200 mls/hr IV.SIG Q8H [facility] Rx#: [id number] Oral 0 / 0 0 / 0 Tube Feeding 240 / 240 Water Bolus Amount 60 / 60 Output: Urine 1100 / 1100 Urine Amount (Catheter) 1300 / 1300 Indwelling Urethral Catheter 1300 / 1300 Other: Date of Last Bowel Movement 05/07/18 # Incontinent Bowel Movements 2 - Urinary Catheter Management Condom Cath placed during this visit: no Indwelling Urethral Catheter Cath placed during this visit: yes Reason for continuing: Acute urinary retention Insertion date: 05/04/18 Results - Labs CBC & Chem 7: 05/02/18 05:36 05/05/18 11:14 - Procedures (1) Esophageal stricture - Post Procedure Diagnosis (1) Esophageal stricture - Procedure Information Procedure Date: 05/03/18 Supervising Radiologist: Ezekiel Robertson Jr, MD Proceduralist/Assist: Angelina Maguire Estimated blood loss (mL): 0 Anesthesia: Conscious Sedation - Plan of Activity Patient to Unit: ROPU Patient Condition: Good See PACS Report for procedural detail/treatment. Feeding Tube Feeding Tube: Gastrostomy Procedure: Placement Mohawk Tube Size: 18 Findings: US and fluoro guided G tube placement. In good position. Plan: T fasteners will fall off on their own in 2-3 weeks. Assessment and Plan - Plan impression Hemoptysis,minor, resolved respiratory failure pneumonia due to recurrent aspiration oesophageal dilitation S/P CVA HYPERBILIRUBINEMIA plan o2 as needed pulmonary toilet outlook poor F/U cxray
[2018-05-08] MEDS: Pantoprazole Inj 40 MG Vial IV.PUSH SCH ×2 (04:06→16:48)
[2018-05-08] MEDS: Sodium Chloride 0.9% 2 ML Flush BID IV.FLUSH SCH ×2 (09:38)
[2018-05-08] MEDS: Sod Chloride 0.9% Inj 1,000 ML IV.CONT SCH ×3 (10:09→23:45)
--- NOTE | 2018-05-08 17:32 | P.PN ---
Subjective Interval history: alert no distress no hemoptysis Physical Exam Vital signs: Vital Signs 05/07/18 18:26 05/07/18 19:00 05/07/18 20:00 Temperature Pulse Rate 103 H 98 H 93 H Respiratory Rate Blood Pressure Pulse Oximetry 05/07/18 20:44 05/07/18 21:00 05/07/18 22:00 Temperature Pulse Rate 84 112 H 106 H Respiratory Rate 18 Blood Pressure Pulse Oximetry 97 05/07/18 23:00 05/08/18 00:00 05/08/18 01:00 Temperature Pulse Rate 94 H 100 H 100 H Respiratory Rate Blood Pressure Pulse Oximetry 05/08/18 02:00 05/08/18 03:00 05/08/18 03:55 Temperature Pulse Rate 82 84 88 Respiratory Rate 15 Blood Pressure Pulse Oximetry 05/08/18 04:00 05/08/18 04:02 05/08/18 05:00 Temperature Pulse Rate 90 86 84 Respiratory Rate 18 Blood Pressure 82/54 L Pulse Oximetry 98 05/08/18 06:00 05/08/18 07:00 05/08/18 08:00 Temperature 99.5 F Pulse Rate 84 89 91 H Respiratory Rate 22 Blood Pressure 88/57 L Pulse Oximetry 98 98 05/08/18 09:00 05/08/18 10:00 05/08/18 11:00 Temperature 98.4 F Pulse Rate 92 H 85 88 Respiratory Rate 16 Blood Pressure 90/57 L Pulse Oximetry 98 05/08/18 12:00 05/08/18 13:00 05/08/18 14:00 Temperature Pulse Rate 89 90 91 H Respiratory Rate Blood Pressure Pulse Oximetry 05/08/18 15:00 05/08/18 16:00 05/08/18 17:00 Temperature 98.6 F Pulse Rate 88 88 91 H Respiratory Rate 16 Blood Pressure 96/58 L Pulse Oximetry 98 Intake & Output 05/07/18 05/08/18 05/08/18 18:59 06:59 18:59 Intake Total 1250 / 1250 900 / 900 1400 / 1400 Output Total 1300 / 1300 950 / 950 1600 / 1600 Balance -50 / -50 -50 / -50 -200 / -200 Weight 59.9 kg Intake: IV 950 / 950 900 / 900 1400 / 1400 NS Inj 1,000 ML @ 75 mls/hr IV. 800 / 800 1200 / 1200 CONT .[id number] [facility] Rx#:[id number] D5W/1/2NS + KCL 30 mEq Inj 1, 650 / 650 000 ML @ 75 mls/hr IV.SIG . [id number] [facility] Rx#:[id number] Rocephin Inj 1,000 MG In NS Inj 100 / 100 100 / 100 100 ML @ 200 mls/hr IV.SIG Q24H [facility] Rx#:[id number] Flagyl 500 MG Inj 100 ML @ 100 200 / 200 100 / 100 100 / 100 mls/hr IV.SIG Q8H [facility] Rx#: [id number] Oral 0 / 0 0 / 0 Tube Feeding 240 / 240 Water Bolus Amount 60 / 60 Output: Urine 950 / 950 Urine Amount (Catheter) 1300 / 1300 1600 / 1600 Indwelling Urethral Catheter 1300 / 1300 1600 / 1600 Other: Date of Last Bowel Movement 05/07/18 05/07/18 # Bowel Movements 1 # Incontinent Bowel Movements 2 Narrative: GENERAL: Non verbal. SKIN: multiple ecchymosis on all four extremities. HEAD: Normocephalic. EYES: No scleral icterus. No injection or drainage. NECK: Supple, trachea midline. No JVD. CARDIOVASCULAR: Regular rate and rhythm without murmurs, gallops, or rubs. RESPIRATORY: Breath sounds equal bilaterally. No accessory muscle use. GASTROINTESTINAL: Soft, non tender, PEG tube in place. dressed area. Chapin cath in place. MUSCULOSKELETAL: No cyanosis, or edema. BACK: Nontender without obvious deformity. No CVA tenderness. - Urinary Catheter Management Condom Cath placed during this visit: no Indwelling Urethral Catheter Cath placed during this visit: yes Reason for continuing: Chronic Urinary Retention Insertion date: 05/04/18 Results - Labs CBC & Chem 7: 05/02/18 05:36 05/05/18 11:14 - Procedures (1) Esophageal stricture - Post Procedure Diagnosis (1) Esophageal stricture - Procedure Information Procedure Date: 05/03/18 Supervising Radiologist: Ezekiel Robertson Jr, MD Proceduralist/Assist: Angelina Maguire Estimated blood loss (mL): 0 Anesthesia: Conscious Sedation - Plan of Activity Patient to Unit: ROPU Patient Condition: Good See PACS Report for procedural detail/treatment. Feeding Tube Feeding Tube: Gastrostomy Procedure: Placement Japanese Tube Size: 18 Findings: US and fluoro guided G tube placement. In good position. Plan: T fasteners will fall off on their own in 2-3 weeks. Assessment and Plan - Plan impression Hemoptysis,minor, resolved respiratory failure pneumonia due to recurrent aspiration oesophageal dilitation S/P CVA HYPERBILIRUBINEMIA plan o2 as needed pulmonary toilet outlook poor F/U cxray
--- NOTE | 2018-05-08 21:17 | P.PNIM ---
Subjective Interval history: Patient appears to be comfortable laying down in bed. Responds by nodding his head yes and no. Physical Exam Vital signs: Vital Signs 05/07/18 22:00 05/07/18 23:00 05/08/18 00:00 Temperature Pulse Rate 106 H 94 H 100 H Respiratory Rate Blood Pressure Pulse Oximetry 05/08/18 01:00 05/08/18 02:00 05/08/18 03:00 Temperature Pulse Rate 100 H 82 84 Respiratory Rate Blood Pressure Pulse Oximetry 05/08/18 03:55 05/08/18 04:00 05/08/18 04:02 Temperature Pulse Rate 88 90 86 Respiratory Rate 15 18 Blood Pressure 82/54 L Pulse Oximetry 98 05/08/18 05:00 05/08/18 06:00 05/08/18 07:00 Temperature 99.5 F Pulse Rate 84 84 89 Respiratory Rate 22 Blood Pressure 88/57 L Pulse Oximetry 98 05/08/18 08:00 05/08/18 09:00 05/08/18 10:00 Temperature Pulse Rate 91 H 92 H 85 Respiratory Rate Blood Pressure Pulse Oximetry 98 05/08/18 11:00 05/08/18 12:00 05/08/18 13:00 Temperature 98.4 F Pulse Rate 88 89 90 Respiratory Rate 16 Blood Pressure 90/57 L Pulse Oximetry 98 05/08/18 14:00 05/08/18 15:00 05/08/18 16:00 Temperature 98.6 F Pulse Rate 91 H 88 88 Respiratory Rate 16 Blood Pressure 96/58 L Pulse Oximetry 98 05/08/18 17:00 05/08/18 18:00 05/08/18 19:27 Temperature Pulse Rate 91 H 95 H Respiratory Rate Blood Pressure Pulse Oximetry 95 Intake & Output 05/08/18 05/08/18 05/09/18 06:59 18:59 06:59 Intake Total 900 / 900 1500 / 1500 Output Total 950 / 950 1600 / 1600 Balance -50 / -50 -100 / -100 Weight 59.9 kg Intake: IV 900 / 900 1500 / 1500 NS Inj 1,000 ML @ 75 mls/hr IV. 800 / 800 1200 / 1200 CONT .[id number] [facility] Rx#:[id number] Rocephin Inj 1,000 MG In NS Inj 100 / 100 100 ML @ 200 mls/hr IV.SIG Q24H [facility] Rx#:[id number] Flagyl 500 MG Inj 100 ML @ 100 100 / 100 200 / 200 mls/hr IV.SIG Q8H [facility] Rx#: [id number] Oral 0 / 0 Output: Urine 950 / 950 Urine Amount (Catheter) 1600 / 1600 Indwelling Urethral Catheter 1600 / 1600 Other: Date of Last Bowel Movement 05/07/18 # Bowel Movements 1 Narrative: General patient appears comfortable laying in bed. He answers yes and no to my questions. HEENT extraocular movements are intact, clear oropharyngeal mucosa, no JVD Cardiovascular S1-S2 audible, RRR, no murmurs rubs or gallops Respiratory clear to auscultation bilaterally Abdomen soft, nontender, nondistended, normal bowel sounds, PEG tube in place, Chapin catheter in place. Extremities no edema 2+ distal pulses in bilateral upper and lower extremities Neuro patient is a aphasic, he responds to yes and no. 3 out of 5 strength of the right upper and right lower extremity. Sensation appears to be intact bilaterally - Urinary Catheter Management Condom Cath placed during this visit: no Indwelling Urethral Catheter Cath placed during this visit: yes Reason for continuing: Chronic Urinary Retention Insertion date: 05/04/18 Results - Labs CBC & Chem 7: 05/02/18 05:36 05/05/18 11:14 - Procedures (1) Esophageal stricture - Post Procedure Diagnosis (1) Esophageal stricture - Procedure Information Procedure Date: 05/03/18 Supervising Radiologist: Ezekiel Robertson Jr, MD Proceduralist/Assist: Angelina Maguire Estimated blood loss (mL): 0 Anesthesia: Conscious Sedation - Plan of Activity Patient to Unit: ROPU Patient Condition: Good See PACS Report for procedural detail/treatment. Feeding Tube Feeding Tube: Gastrostomy Procedure: Placement Welsh Tube Size: 18 Findings: US and fluoro guided G tube placement. In good position. Plan: T fasteners will fall off on their own in 2-3 weeks. Assessment and Plan - Plan This patient is a 57-year-old male with a diagnosis of gastroesophageal reflux disease, history of ischemic CVA with right-sided hemiparesis. The patient presented to our emergency department today accompanied by his significant other who says that over the past 1 month the patient has had some dysphagia, and has been coughing over the past week. He has an extensive tobacco smoking history and has been smoking nearly 2 packs of cigarettes per day since the age of 18. Due to the patient's history of CVA he was having difficulty swallowing , during this hospitalization he received a PEG tube. 1. Acute hypoxic hypercapnic respiratory failure likely secondary to aspiration 2. Tobacco abuse The patient had some debris's in the right mainstem bronchus on admission which was seen on the CTA of the chest. Imaging was negative for PE. He was started on antibiotics for aspiration pneumonia and has been on antibiotics for nearly 2 weeks. A repeat chest x-ray from a few days ago shows a left lower lobe infiltrate or could be chemical pneumonitis from aspiration. The patient is afebrile with no significant elevation in his WBC count. Antibiotics will be stopped today as he has received nearly 2 weeks of IV antibiotics. The patient spikes a fever we will restart antibiotics. 3. Dysphagia with diffusely dilated esophagus, and esophageal stricture GI following the patient. Patient status post PEG tube placement. For the esophageal stricture GI will continue to monitor the patient as this is not urgent procedure at the moment. I will follow-up with recognitions from GI. 4. Urinary retention Patient was found to have meatal stenosis, Chapin catheter is in place. Will follow up with recommendations from urology for the plan as far as his urinary retention goes. 5. History of ischemic CVA Aspirin will be restarted by PEG tube today. Hemoglobin has been stable, no hemoptysis. Patient will be started on subcu heparin for DVT prophylaxis.
[2018-05-09] MEDS: Sodium Chloride 0.9% 2 ML Flush BID IV.FLUSH SCH ×2 (04:13→08:55)
[2018-05-09] MEDS: Pantoprazole Inj 40 MG Vial IV.PUSH SCH ×2 (05:53→15:34)
[2018-05-09 08:29] LABS: Baso % (Auto) 0.5 % (0.0-2.0); Eos # (Auto) 0.1 th/mm3 (0.0-0.4); Eos % (Auto) 1.1 % (0.0-4.0); Hematocrit 26.5 % (39.0-51.0); Hemoglobin 8.6 gm/dL (13.0-17.0); Lymph # (Auto) 1.6 th/mm3 (1.0-4.8); Lymph % (Auto) 21.8 % (9.0-44.0); Mean Corpuscular HGB Conc 32.4 % (32.0-36.0); Mean Corpuscular Hemoglobin 26.9 pg (27.0-34.0); Mean Corpuscular Volume 82.9 fL (80.0-100.0); Mean Platelet Volume 8.1 fL (7.0-11.0); Mono # (Auto) 0.9 th/mm3 (0.0-0.9); Mono % (Auto) 12.4 % (0.0-8.0); Neut # (Auto) 4.7 th/mm3 (1.8-7.7); Neut % (Auto) 64.2 % (16.0-70.0); Platelet Count 120 th/mm3 (150-450); Red Blood Count 3.19 mil/mm3 (4.50-5.90); Red Cell Distribution Width 18.4 % (11.6-17.2); White Blood Count 7.3 th/mm3 (4.0-11.0)
[2018-05-09] MEDS: Sod Chloride 0.9% Inj 1,000 ML IV.CONT SCH (08:53)
[2018-05-09 08:59] LABS: Anion Gap 9 meq/L (5-15); Blood Urea Nitrogen 5 mg/dL (7-18); Calcium 8.2 mg/dL (8.5-10.1); Carbon Dioxide 25.6 meq/L (21.0-32.0); Chloride 105 meq/L (98-107); Glomerular Filtration Rate Greater Than 89 mL/min (>89); Glucose,Random 96 mg/dL (74-106); Magnesium 1.6 mg/dL (1.5-2.5); Potassium 3.5 meq/L (3.5-5.1); Sodium 140 meq/L (136-145)
[2018-05-09] MEDS ORDERED: Heparin - SQ 10,000 UNITS/ML Vial SQ SCH (09:00)
--- NOTE | 2018-05-09 11:01 | P.PNIM ---
Subjective Interval history: The patient is laying down in bed. He currently appears to be comfortable. Patient is following simple commands. He appears to be oriented with what is currently going on. Physical Exam Vital signs: Vital Signs 05/08/18 11:00 05/08/18 12:00 05/08/18 13:00 Temperature 98.4 F Pulse Rate 88 89 90 Respiratory Rate 16 Blood Pressure 90/57 L Pulse Oximetry 98 05/08/18 14:00 05/08/18 15:00 05/08/18 16:00 Temperature 98.6 F Pulse Rate 91 H 88 88 Respiratory Rate 16 Blood Pressure 96/58 L Pulse Oximetry 98 05/08/18 17:00 05/08/18 18:00 05/08/18 19:00 Temperature Pulse Rate 91 H 95 H 94 H Respiratory Rate 16 Blood Pressure Pulse Oximetry 98 05/08/18 19:27 05/08/18 20:00 05/08/18 21:00 Temperature Pulse Rate 96 H 92 H Respiratory Rate Blood Pressure Pulse Oximetry 95 05/08/18 22:00 05/08/18 23:00 05/09/18 00:00 Temperature Pulse Rate 92 H 94 H 92 H Respiratory Rate 16 Blood Pressure Pulse Oximetry 98 05/09/18 01:00 05/09/18 02:00 05/09/18 03:00 Temperature Pulse Rate 90 93 H 93 H Respiratory Rate 16 Blood Pressure Pulse Oximetry 96 05/09/18 04:00 05/09/18 05:00 05/09/18 06:00 Temperature Pulse Rate 93 H 94 H 94 H Respiratory Rate Blood Pressure Pulse Oximetry 05/09/18 07:00 05/09/18 08:00 05/09/18 09:00 Temperature 98.4 F Pulse Rate 92 H 110 H 104 H Respiratory Rate 18 Blood Pressure 95/71 L Pulse Oximetry 98 98 05/09/18 10:00 Temperature Pulse Rate 111 H Respiratory Rate Blood Pressure Pulse Oximetry Intake & Output 05/08/18 05/09/18 05/09/18 18:59 06:59 18:59 Intake Total 1500 / 1500 1360 / 1360 1000 / 1000 Output Total 1600 / 1600 1800 / 1800 Balance -100 / -100 -440 / -440 1000 / 1000 Weight 56.6 kg Intake: IV 1500 / 1500 1000 / 1000 1000 / 1000 NS Inj 1,000 ML @ 75 mls/hr IV. 1200 / 1200 1000 / 1000 1000 / 1000 CONT .[id number] [facility] Rx#:[id number] Rocephin Inj 1,000 MG In NS Inj 100 / 100 100 ML @ 200 mls/hr IV.SIG Q24H [facility] Rx#:[id number] Flagyl 500 MG Inj 100 ML @ 100 200 / 200 mls/hr IV.SIG Q8H [facility] Rx#: [id number] Oral 0 / 0 0 / 0 Tube Feeding 300 / 300 Tube Irrigant 60 / 60 Output: Urine Amount (Catheter) 1600 / 1600 1800 / 1800 Indwelling Urethral Catheter 1600 / 1600 1800 / 1800 Other: Date of Last Bowel Movement 05/07/18 # Bowel Movements 1 # Incontinent Bowel Movements 2 Narrative: General patient appears comfortable laying in bed. Patient is following simple commands. He appears to be oriented about what is currently going on with his condition. HEENT extraocular movements are intact, clear oropharyngeal mucosa, no JVD Cardiovascular S1-S2 audible, RRR, no murmurs rubs or gallops Respiratory clear to auscultation bilaterally Abdomen soft, nontender, nondistended, normal bowel sounds, PEG tube in place, Chapin catheter in place. Extremities no edema 2+ distal pulses in bilateral upper and lower extremities Neuro patient is a aphasic, he responds to yes and no. 3 out of 5 strength of the right upper and right lower extremity. Sensation is intact bilaterally. - Urinary Catheter Management Condom Cath placed during this visit: no Indwelling Urethral Catheter Cath placed during this visit: yes Reason for continuing: Chronic Urinary Retention Insertion date: 05/04/18 Results - Labs CBC & Chem 7: 05/09/18 07:45 05/09/18 07:45 Laboratory Results - last 24 hr 05/09/18 05/09/18 07:45 07:45 WBC 7.3 RBC 3.19 L Hgb 8.6 L Hct 26.5 L MCV 82.9 MCH 26.9 L MCHC 32.4 RDW 18.4 H Plt Count 120 L D MPV 8.1 Neut % (Auto) 64.2 Lymph % (Auto) 21.8 Garfield % (Auto) 12.4 H Eos % (Auto) 1.1 Baso % (Auto) 0.5 Neut # (Auto) 4.7 Lymph # (Auto) 1.6 Garfield # (Auto) 0.9 Eos # (Auto) 0.1 Baso # (Auto) 0.0 WBC Differential . Differential Comment Auto diff final Sodium 140 Potassium 3.5 Chloride 105 Carbon Dioxide 25.6 Anion Gap 9 BUN 5 L Creatinine 0.37 L Estimated GFR Greater than 89 Random Glucose 96 Calcium 8.2 L Magnesium 1.6 - Procedures (1) Esophageal stricture - Post Procedure Diagnosis (1) Esophageal stricture - Procedure Information Procedure Date: 05/03/18 Supervising Radiologist: Ezekiel Robertson Jr, MD Proceduralist/Assist: Angelina Maguire Estimated blood loss (mL): 0 Anesthesia: Conscious Sedation - Plan of Activity Patient to Unit: ROPU Patient Condition: Good See PACS Report for procedural detail/treatment. Feeding Tube Feeding Tube: Gastrostomy Procedure: Placement Ukrainian Tube Size: 18 Findings: US and fluoro guided G tube placement. In good position. Plan: T fasteners will fall off on their own in 2-3 weeks. Assessment and Plan - Plan This patient is a 57-year-old male with a diagnosis of gastroesophageal reflux disease, history of ischemic CVA with right-sided hemiparesis. The patient presented to our emergency department today accompanied by his significant other who says that over the past 1 month the patient has had some dysphagia, and has been coughing over the past week. He has an extensive tobacco smoking history and has been smoking nearly 2 packs of cigarettes per day since the age of 18. Due to the patient's history of CVA he was having difficulty swallowing , during this hospitalization he received a PEG tube. 1. Normocytic anemia Patient had a significant drop in hemoglobin level over the past 1 week. As per documentation the patient was having some hemoptysis which has improved. We will continue to monitor the patient's hemoglobin level and follow-up with an a.m. CBC. No obvious source of bleeding for now. Patient has a history of ischemic CVA, we will continue aspirin. No pharmacotherapy for DVT prophylaxis given his low platelet count and concern for possible bleeding given his drop in hemoglobin level. Will order an LDH, and indirect bilirubin levels. 2. Acute hypoxic hypercapnic respiratory failure likely secondary to aspiration pneumonia 3. Tobacco abuse The patient had some debris's in the right mainstem bronchus on admission which was seen on the CTA of the chest. Imaging was negative for PE. He was started on antibiotics for aspiration pneumonia and has been on antibiotics for nearly 2 weeks. A repeat chest x-ray from a few days ago shows a left lower lobe infiltrate or could be chemical pneumonitis from aspiration. The patient is afebrile with no significant elevation in his WBC count. Antibiotics were stopped yesterday. Patient remains afebrile. Currently on room air. 4. Dysphagia with diffusely dilated esophagus, and esophageal stricture GI following the patient. Patient status post PEG tube placement. For the esophageal stricture GI will continue to monitor the patient as this is not urgent procedure at the moment. I will follow-up with recognitions from GI. 5. Urinary retention Patient was found to have meatal stenosis, Chapin catheter is in place. Will follow up with recommendations from urology for the plan as far as his urinary retention goes. 6. History of ischemic CVA Aspirin will be restarted by PEG tube. We will continue to monitor the patient' s hemoglobin level. If it continues to drop then we will consider stopping aspirin. As mentioned above no pharmacotherapy for DVT prophylaxis given the patient's low platelet count.
[2018-05-09] MEDS ORDERED: Magnesium Sulfate Inj 2 GM in Sodium Chlor 0.9% Inj 96 ML IV.SIG ONE ×4 (12:00)
[2018-05-09] MEDS ORDERED: MAGNESIUM SULFATE IV.SIG ONE (12:00)
[2018-05-09] MEDS ORDERED: MAG SULF IV.SIG ONE (12:00)
--- NOTE | 2018-05-09 14:51 | P.PN ---
Subjective Interval history: ALERT NONVERBAL NAD Physical Exam Vital signs: Vital Signs 05/08/18 15:00 05/08/18 16:00 05/08/18 17:00 Temperature 98.6 F Pulse Rate 88 88 91 H Respiratory Rate 16 Blood Pressure 96/58 L Pulse Oximetry 98 05/08/18 18:00 05/08/18 19:00 05/08/18 19:27 Temperature Pulse Rate 95 H 94 H Respiratory Rate 16 Blood Pressure Pulse Oximetry 98 95 05/08/18 20:00 05/08/18 21:00 05/08/18 22:00 Temperature Pulse Rate 96 H 92 H 92 H Respiratory Rate Blood Pressure Pulse Oximetry 05/08/18 23:00 05/09/18 00:00 05/09/18 01:00 Temperature Pulse Rate 94 H 92 H 90 Respiratory Rate 16 Blood Pressure Pulse Oximetry 98 05/09/18 02:00 05/09/18 03:00 05/09/18 04:00 Temperature Pulse Rate 93 H 93 H 93 H Respiratory Rate 16 Blood Pressure Pulse Oximetry 96 05/09/18 05:00 05/09/18 06:00 05/09/18 07:00 Temperature 98.4 F Pulse Rate 94 H 94 H 92 H Respiratory Rate 18 Blood Pressure 95/71 L Pulse Oximetry 98 05/09/18 08:00 05/09/18 09:00 05/09/18 10:00 Temperature Pulse Rate 110 H 104 H 111 H Respiratory Rate Blood Pressure Pulse Oximetry 98 05/09/18 11:00 05/09/18 12:00 05/09/18 13:00 Temperature 98.2 F Pulse Rate 104 H 107 H 102 H Respiratory Rate 18 Blood Pressure 117/80 Pulse Oximetry 98 05/09/18 14:00 Temperature Pulse Rate 87 Respiratory Rate Blood Pressure Pulse Oximetry Intake & Output 05/08/18 05/09/18 05/09/18 18:59 06:59 18:59 Intake Total 1500 / 1500 1360 / 1360 1100 / 1100 Output Total 1600 / 1600 1800 / 1800 Balance -100 / -100 -440 / -440 1100 / 1100 Weight 56.6 kg Intake: IV 1500 / 1500 1000 / 1000 1100 / 1100 NS Inj 1,000 ML @ 75 mls/hr IV. 1200 / 1200 1000 / 1000 1000 / 1000 CONT .[id number] [facility] Rx#:[id number] Magnesium Sulfate Inj 2 GM In 100 / 100 NS Inj 96 ML @ 50 mls/hr IV.SIG ONCE ONE Rx#:[id number] Rocephin Inj 1,000 MG In NS Inj 100 / 100 100 ML @ 200 mls/hr IV.SIG Q24H [facility] Rx#:[id number] Flagyl 500 MG Inj 100 ML @ 100 200 / 200 mls/hr IV.SIG Q8H [facility] Rx#: [id number] Oral 0 / 0 0 / 0 Tube Feeding 300 / 300 Tube Irrigant 60 / 60 Output: Urine Amount (Catheter) 1600 / 1600 1800 / 1800 Indwelling Urethral Catheter 1600 / 1600 1800 / 1800 Other: Date of Last Bowel Movement 05/07/18 # Bowel Movements 1 # Incontinent Bowel Movements 2 Narrative: General patient appears comfortable laying in bed. Patient is following simple commands. He appears to be oriented about what is currently going on with his condition. HEENT extraocular movements are intact, clear oropharyngeal mucosa, no JVD Cardiovascular S1-S2 audible, RRR, no murmurs rubs or gallops Respiratory clear to auscultation bilaterally Abdomen soft, nontender, nondistended, normal bowel sounds, PEG tube in place, Chapin catheter in place. Extremities no edema 2+ distal pulses in bilateral upper and lower extremities Neuro patient is a aphasic, he responds to yes and no. 3 out of 5 strength of the right upper and right lower extremity. Sensation is intact bilaterally. - Urinary Catheter Management Condom Cath placed during this visit: no Indwelling Urethral Catheter Cath placed during this visit: yes Reason for continuing: Chronic Urinary Retention Insertion date: 05/04/18 Results - Labs CBC & Chem 7: 05/09/18 07:45 05/09/18 07:45 Laboratory Results - last 24 hr 05/09/18 05/09/18 05/09/18 07:45 07:45 07:45 WBC 7.3 RBC 3.19 L Hgb 8.6 L Hct 26.5 L MCV 82.9 MCH 26.9 L MCHC 32.4 RDW 18.4 H Plt Count 120 L D MPV 8.1 Neut % (Auto) 64.2 Lymph % (Auto) 21.8 Taliaferro % (Auto) 12.4 H Eos % (Auto) 1.1 Baso % (Auto) 0.5 Neut # (Auto) 4.7 Lymph # (Auto) 1.6 Taliaferro # (Auto) 0.9 Eos # (Auto) 0.1 Baso # (Auto) 0.0 WBC Differential . Differential Comment Auto diff final Sodium 140 Potassium 3.5 Chloride 105 Carbon Dioxide 25.6 Anion Gap 9 BUN 5 L Creatinine 0.37 L Estimated GFR Greater than 89 Random Glucose 96 Calcium 8.2 L Magnesium 1.6 Total Bilirubin 0.3 Direct Bilirubin 0.1 Lactate Dehydrogenase 163 - Procedures (1) Esophageal stricture - Post Procedure Diagnosis (1) Esophageal stricture - Procedure Information Procedure Date: 05/03/18 Supervising Radiologist: Ezekiel Robertson Jr, MD Proceduralist/Assist: Angelina Maguire Estimated blood loss (mL): 0 Anesthesia: Conscious Sedation - Plan of Activity Patient to Unit: ROPU Patient Condition: Good See PACS Report for procedural detail/treatment. Feeding Tube Feeding Tube: Gastrostomy Procedure: Placement Swazi Tube Size: 18 Findings: US and fluoro guided G tube placement. In good position. Plan: T fasteners will fall off on their own in 2-3 weeks. Assessment and Plan - Plan impression Hemoptysis,minor, resolved respiratory failure pneumonia due to recurrent aspiration oesophageal dilitation S/P CVA HYPERBILIRUBINEMIA plan o2 as needed pulmonary toilet outlook poor
--- NOTE | 2018-05-09 15:27 | XR ---
EXAM DATE: 05/09/2018 3:19 PM EDT AGE/SEX: 57 years / Male INDICATIONS: Chronic obstructive pulmonary disease. CLINICAL DATA: This is the patient's subsequent encounter. Patient reports that signs and symptoms h ave been present for 2 weeks and indicates a pain score of Nonresponsive. MEDICAL/SURGICAL HISTORY: . Gastroesophageal reflux disease. Stroke. Ischemic CVA, Hernia Non e. [place] [facility] [place]. . FINDINGS: Single view thorax demonstrates mild atelectatic changes in the left lower lobe. This is improved com pared to previous dated 05/06/2018. The right lung is clear. The heart is normal in size. Note is made of a partially healed posterior right eighth rib fracture. The remainder the osseous str uctures are intact. CONCLUSION: Left basilar atelectasis. Significantly improved exam compared to prior dated 05/06/2018. Electronically signed by: Ishmael Lemon MD 05/09/2018 3:25 PM EDT
--- NOTE | 2018-05-10 05:50 | XR ---
EXAM DATE: 05/10/2018 5:40 AM EDT AGE/SEX: 57 years / Male INDICATIONS: Shortness of breath, possible pulmonary disease. CLINICAL DATA: This is the patient's subsequent encounter. Patient reports that signs and symptoms h ave been present for 2 weeks and indicates a pain score of Nonresponsive. MEDICAL/SURGICAL HISTORY: . Gastroesophageal reflux disease. Stroke. Ischemic CVA. None. [place] [facility] [place]. . FINDINGS: The cardiac silhouette is normal in transverse diameter. There is left lower lobe atelectasis versus pneumonia. A small left sided effusion is present. The right lung is free of acute parenchymal opacit y. CONCLUSION: Left lower lobe atelectasis versus pneumonia. There has been no significant change when compared to t prior exam. Electronically signed by: Pietro Christiansen MD 05/10/2018 5:49 AM EDT
[2018-05-10] MEDS: Sodium Chloride 0.9% 2 ML Flush BID IV.FLUSH SCH ×3 (06:24→20:19)
[2018-05-10] MEDS: Pantoprazole Inj 40 MG Vial IV.PUSH SCH ×2 (06:25→17:52)
[2018-05-10] MEDS: Sod Chloride 0.9% Inj 1,000 ML IV.CONT SCH ×3 (06:25→23:36)
[2018-05-10 06:57] LABS: Hematocrit 26.6 % (39.0-51.0); Hemoglobin 8.9 gm/dL (13.0-17.0)
--- NOTE | 2018-05-10 10:14 | P.DIET ---
Nutritional Evaluation Type of nutrition evaluation: follow-up Nutrition consult regarding: Tube Feeding Nutrition screening: [facility] [place]: NPO SCREEN Subjective Barriers to Nutrition: Swallowing problem Objective - Diagnosis Hypoxia - Objective % IBW: 82 (IBW = 152lb) Body Weight Used for Calculations: Actual Energy Needs - Lower Range (kCal/kg): 25 Energy Needs - Upper Range (kCal/kg): 30 Lower Limit kCal/kg (kCals): 1,433 Upper Limit kCal/kg (kCals): 1,719 Lower Limit Protein Factor (Grams per Kg): 1.1 Upper Limit Protein Factor (Grams per Kg): 1.3 Lower Protein Needs (Protein): 63 Upper Protein Needs (Protein): 75 Fluid Factor (ml/kg): 30 Estimated Fluid Needs (ml): 1,719 Dietitian Reviewed in Medical Record: Current diet, Curent medications, Intake & Output, Labs, Medical history Diet Order: NPO Speech Therapy Recommendations: No Objective Comments: PMH: hx of stroke, hernia, speech impairment Meds: flagyl, protonix Labs: BUN 5, Cr 0.37, Ca 8.2 Assessment Assessment: Pt had not been tolerating PO intake for this past week per MD note. Pt unable to eat d/t dilated esophagus w/ dysphagia. Pt currently on Vital 1.5 @ 45mL/hr and tolerating well. Additional recs to be provided depending on clinical course. Recommendations: 1. Recommend continuing Vital 1.5 @ 45mL/hr 2. Dietitian following Dietitian to Monitor: Lab values, Glucose level, Intake & Output, Tube feeding tolerance, Weight change, PO Intake, Diet advancement, Medical course
--- NOTE | 2018-05-10 16:34 | P.DS ---
Date of admission: 04/26/18 12:01 Primary care physician: UNKNOWN Brief History from admission: This patient is a 57-year-old male with a diagnosis of gastroesophageal reflux disease, history of ischemic CVA with right-sided hemiparesis. The patient presented to our emergency department today accompanied by his significant other who says that over the past 1 month the patient has had some dysphagia, and has been coughing over the past week. He has an extensive tobacco smoking history and has been smoking nearly 2 packs of cigarettes per day since the age of 18. He has not been able to tolerate a p.o. diet over the past week and his significant other was concerned and so she brought him into the emergency department today. In the ER he was found to be hypoxic and coughing. At baseline the patient can say yes or no otherwise he does not communicate very well. As per the emergency department physician notes when EMS arrived to his house there was feces on the patient's bed, blankets, and bugs all over the patient as well as as a significant other. She denies any fevers or chills, no chest pain, no diarrhea. Past medical history ischemic CVA, gastroesophageal reflux disease Past surgical history none Family history noncontributory Social history patient has an extensive history of tobacco smoking 2 packs/day since the age of 18, denies history of alcohol abuse, denies any history of drug use DS: Summary Hospital Course: This patient is a 57-year-old male with a diagnosis of gastroesophageal reflux disease, history of ischemic CVA with right-sided hemiparesis. The patient presented to our emergency department today accompanied by his significant other who says that over the past 1 month the patient has had some dysphagia, and has been coughing over the past week. He has an extensive tobacco smoking history and has been smoking nearly 2 packs of cigarettes per day since the age of 18. Due to the patient's history of CVA he was having difficulty swallowing , during this hospitalization he received a PEG tube. 1. Acute hypoxic hypercapnic respiratory failure secondary to aspiration pneumonia 2. Tobacco abuse Initially when the patient arrived he was found to be hypoxic and hypercapnic. There was a concern for pulmonary embolus. A CT a of the chest was done which did not show any findings consistent with pulmonary embolus. The CTA did show debris's in the right mainstem bronchus likely due to aspiration. The patient has a history of CVA and was having difficulty swallowing a few weeks prior to admission according to his significant other. He was started on IV antibiotics for aspiration pneumonia. He was subsequently titrated off of supplemental oxygen and is now on room air. The patient has completed his course of antibiotic treatment. He also has an extensive history of tobacco use. A discussion was held with the patient as well as the patient's significant other about his smoking history and his history of CVA. They agree that he should stop smoking. The patient now has a PEG tube which may help with the risk of aspiration however aspiration is still possibility even with PEG tube feeds. 3. Esophageal stricture Chest imaging also showed an esophageal stricture. He was evaluated by GI and recommendations for the patient were to undergo PEG tube placement. Treatment and management for the esophageal stricture is not urgent or emergent at this point. GI recommends that he follow-up outpatient given that the patient currently has a PEG tube and is receiving feeds through the PEG tube. The esophageal stricture can be addressed outpatient. The plan is to continue feeds with vital 1.5 at 45 mL/h. Residuals should be checked throughout the day. 4. Urinary retention Patient was found to have meatal stenosis. Chapin catheter was very difficult to place by nursing staff and urology had to be consulted to place the Chapin catheter. He will be discharged with a Chapin catheter in place and the plan is to have the patient follow-up outpatient with urology for further management of the meatal stenosis. 5. History of ischemic CVA The patient has a history of CVA and has difficulty speaking. He does answer yes and no to questions otherwise it is difficult to have a conversation with him. He has motor weakness of his right upper and right lower extremity. Patient has been n.p.o. and currently has a PEG tube in place and is receiving feeds through the PEG. Continue aspirin, statin through the PEG tube. The patient will also be continued [facility]. Patient can also be given pain medications as needed at the [facility]. Continue DVT prophylaxis at the [facility]. 6. Sacral ulcer Continue wound care at the [facility] facility. 7. Normocytic anemia Patient currently has a hemoglobin of 8.9 and was around 8.6 yesterday. No significant change in the patient's hemoglobin over the past couple of days. I recommend that the patient have outpatient workup of his anemia including iron studies. LDH is normal, bilirubin is normal so I do not believe the patient is hemolyzing. No signs of active bleeding and the patient's hemoglobin has actually increased since yesterday. Will be [facility] a [facility] today. - Time Spent with Patient Total time spent providing and/or coordinating discharge services: Greater than 30 minutes - Quality: VTE Deep Vein Thrombosis/Pulmonary Embolism Present on Admission: No Exam Vital signs: Vital Signs 05/09/18 16:53 05/09/18 17:00 05/09/18 18:00 Temperature Pulse Rate 109 H 110 H Respiratory Rate Blood Pressure 99/68 L Pulse Oximetry 05/09/18 19:00 05/09/18 19:52 05/09/18 20:00 Temperature 98.1 F Pulse Rate 111 H 108 H Respiratory Rate 24 Blood Pressure 94/73 L Pulse Oximetry 89 L 95 05/09/18 21:00 05/09/18 22:00 05/09/18 23:00 Temperature Pulse Rate 104 H 110 H 110 H Respiratory Rate 18 Blood Pressure Pulse Oximetry 92 L 05/10/18 00:00 05/10/18 00:46 05/10/18 01:00 Temperature Pulse Rate 111 H 107 H 108 H Respiratory Rate 24 Blood Pressure Pulse Oximetry 05/10/18 02:00 05/10/18 03:00 05/10/18 04:00 Temperature 97.2 F L Pulse Rate 108 H 107 H 105 H Respiratory Rate 18 Blood Pressure 109/73 Pulse Oximetry 96 05/10/18 05:00 05/10/18 05:18 05/10/18 06:00 Temperature Pulse Rate 108 H 104 H 112 H Respiratory Rate 20 Blood Pressure Pulse Oximetry 05/10/18 07:37 05/10/18 08:49 05/10/18 10:12 Temperature 98.2 F Pulse Rate 102 H 115 H Respiratory Rate 16 17 Blood Pressure 92/72 L Pulse Oximetry 96 96 97 05/10/18 11:10 05/10/18 15:42 05/10/18 16:11 Temperature 98 F Pulse Rate 104 H 112 H 76 Respiratory Rate 15 18 18 Blood Pressure 93/69 L Pulse Oximetry 99 Intake & Output 05/09/18 05/10/18 05/10/18 18:59 06:59 18:59 Intake Total 1100 / 1100 1000 / 1000 Output Total 900 / 900 850 / 850 Balance 200 / 200 -850 / -850 1000 / 1000 Weight 56.1 kg Intake: IV 1100 / 1100 1000 / 1000 NS Inj 1,000 ML @ 75 mls/hr IV. 1000 / 1000 1000 / 1000 CONT .[id number] [facility] Rx#:[id number] Magnesium Sulfate Inj 2 GM In 100 / 100 NS Inj 96 ML @ 50 mls/hr IV.SIG ONCE ONE Rx#:[id number] Oral 0 / 0 Output: Urine 900 / 900 Urine Amount (Catheter) 850 / 850 Indwelling Urethral Catheter 850 / 850 Other: Date of Last Bowel Movement 05/07/18 Narrative: General patient appears comfortable laying in bed. Patient is following simple commands. He appears to be oriented about what is currently going on with his condition. HEENT extraocular movements are intact, clear oropharyngeal mucosa, no JVD Cardiovascular S1-S2 audible, RRR, no murmurs rubs or gallops Respiratory clear to auscultation bilaterally Abdomen soft, nontender, nondistended, normal bowel sounds, PEG tube in place, Chapin catheter in place. Extremities no edema 2+ distal pulses in bilateral upper and lower extremities Neuro patient is a aphasic, he responds to yes and no. 3 out of 5 strength of the right upper and right lower extremity. Sensation is intact bilaterally. Results Procedures completed during hospitalization: (1) Esophageal stricture - Post Procedure Diagnosis (1) Esophageal stricture - Procedure Information Procedure Date: 05/03/18 Supervising Radiologist: Ezekiel Robertson Jr, MD Proceduralist/Assist: Angelina Maguire Estimated blood loss (mL): 0 Anesthesia: Conscious Sedation - Plan of Activity Patient to Unit: ROPU Patient Condition: Good See PACS Report for procedural detail/treatment. Feeding Tube Feeding Tube: Gastrostomy Procedure: Placement Chinese Tube Size: 18 Findings: US and fluoro guided G tube placement. In good position. Plan: T fasteners will fall off on their own in 2-3 weeks. Labs on day of discharge: Labs from last 24 hours 05/10/18 05:33 Hgb 8.9 L Hct 26.6 L - Impressions ITS Impressions Abdomen X-Ray 04/25/18 20:59 CONCLUSION: No acute findings. Chest CTA 04/26/18 00:00 CONCLUSION: 1. No evidence of pulmonary embolism. 2. Minimal scattered patchy densities are noted within the lower and upper lobes consistent with possible pneumonia. Debris is noted within the right mainstem bronchus and extending into the right upper and lower lobe bronchi. 3. The diffusely dilated esophagus which contains debris raising the possibility of achalasia or achalasia-like process. Outpatient evaluation of this finding could be performed if requested. 4. Coronary artery calcifications. 5. Calcified nonobstructing left renal calculi. Head CT 04/26/18 11:11 CONCLUSION: 1. 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 2. Denies sinus air-fluid level. . Pulmonary Perfusion Imaging 04/26/18 11:11 CONCLUSION: 1. Intermediate probability for pulmonary embolus on the left. Venous Doppler Study 04/26/18 11:11 CONCLUSION: 1. The study is negative for bilateral lower extremity deep venous thrombosis. Gastrostomy Tube Placement 05/03/18 00:00 CONCLUSION: 1. Uncomplicated gastrostomy tube placement as above. Chest X-Ray 05/10/18 17:32 CONCLUSION: Left lower lobe atelectasis versus pneumonia. There has been no significant change when compared to the prior exam. Discharge Plan - Discharge Disposition Patient Disposition: 03 Discharge to SNF - Discharge Condition Condition: Stable - Discharge Order Discharge Orders: Discharge Order (Routine); Ordered 05/10/18 Ordered By: Donis Pierre - Physicians Team Primary Care Provider: UNKNOWN, Attending Provider: Donis Pierre Other Providers: Rashad Solorzano MD ; Santos Mccloud MD ; [facility], [place] ; [facility] ; Efren Costa MD ; [facility],[place]
--- NOTE | 2018-05-10 17:01 | P.PNWCN ---
Wound Care Nurse Consult Description: Received pressure ulcer consult for sacral wound from Donis Pierre Communicated with: [facility] and Doctor Ignacio Recommendation: Please cleanse wound gently with normal saline and pat dry. Apply Cavilon spray to purple non blanchable skin over coccyx. Cover with bordered gauze and change PRN if saturated or dislodged. Wound/Pressure Injury - Patient Status Premedicated for Pain Prior to Dressing Change: No - Wound Sacrum Wound Staging: DTI Wound Assessment: Ongoing Wound Type: Pressure Injury Is This a Chronic Wound: No Requested from Provider a Wound Care Consult: Yes (Wound care saw patient) Length (cm): 8 (~8cm) Width (cm): 7 (~7cm) Depth (cm): 0.1 (~0.1 where it is open, oterhwise non blanchable intact purple skin) Wound Bed Appearance: Wound is presenting as a Deep tissue injury that is opening to possibly full thickness skin loss with dark red to purple tissue visible in open area between 4 and 5 o'clock. Surrounding Tissue Appearance: [place] Surrounding Tissue Temperature: Warm Drainage Description: Serosanguinous Drainage Amount: None Drainage Odor: No Odor Dressing Status: Changed Cleansing Solution: Saline Topical: Cavilon skin barrier film spray Cover Dressing: bordered gauze Wound Dressing Change Date: 05/10/18 Wound Margin Description: Wound margins are even and well defined - Additional Information Patient seen on [facility] for possible pressure injury to sacral area. Patient is a total care patient and was turned by typewriters functional tester, and [facility] toward the R side to reveal Deep tissue injury to sacral area that is opening to shallow full thickness skin loss.Wound is non draining and dry at the time. ~80% of the wound is covered with dry, loose, nonblanchable, boggy, purple discolored skin. ~20% of the wound is opening to shallow full thickness wound with purple/ dark red tissue visible. Open area is dry without active drainage or odor. Wound measurements and descriptions are noted above, with wound care recommendations. Wound was cleansed with normal saline and patted dry. Applied cavilon skin barrier film spray over non blanchable purple skin and Covered entire wound with bordered gauze.
--- NOTE | 2018-05-10 19:12 | P.PN ---
Subjective Interval history: al3ert no sob cxray, stable Physical Exam Vital signs: Vital Signs 05/09/18 19:52 05/09/18 20:00 05/09/18 21:00 Temperature Pulse Rate 108 H 104 H Respiratory Rate Blood Pressure Pulse Oximetry 95 05/09/18 22:00 05/09/18 23:00 05/10/18 00:00 Temperature Pulse Rate 110 H 110 H 111 H Respiratory Rate 18 Blood Pressure Pulse Oximetry 92 L 05/10/18 00:46 05/10/18 01:00 05/10/18 02:00 Temperature Pulse Rate 107 H 108 H 108 H Respiratory Rate 24 Blood Pressure Pulse Oximetry 05/10/18 03:00 05/10/18 04:00 05/10/18 05:00 Temperature 97.2 F L Pulse Rate 107 H 105 H 108 H Respiratory Rate 18 Blood Pressure 109/73 Pulse Oximetry 96 05/10/18 05:18 05/10/18 06:00 05/10/18 07:00 Temperature Pulse Rate 104 H 112 H 110 H Respiratory Rate 20 Blood Pressure Pulse Oximetry 05/10/18 07:37 05/10/18 08:00 05/10/18 08:49 Temperature Pulse Rate 102 H 108 H Respiratory Rate 16 Blood Pressure Pulse Oximetry 96 96 05/10/18 09:00 05/10/18 10:00 05/10/18 10:12 Temperature 98.2 F Pulse Rate 102 H 112 H 115 H Respiratory Rate 17 Blood Pressure 92/72 L Pulse Oximetry 97 05/10/18 11:00 05/10/18 11:10 05/10/18 12:00 Temperature Pulse Rate 108 H 104 H 116 H Respiratory Rate 15 Blood Pressure Pulse Oximetry 05/10/18 13:00 05/10/18 14:00 05/10/18 15:00 Temperature Pulse Rate 104 H 104 H 108 H Respiratory Rate Blood Pressure Pulse Oximetry 05/10/18 15:42 05/10/18 16:00 05/10/18 16:11 Temperature 98 F Pulse Rate 112 H 98 H 76 Respiratory Rate 18 18 Blood Pressure 93/69 L Pulse Oximetry 99 05/10/18 17:00 05/10/18 18:48 Temperature Pulse Rate 110 H 110 H Respiratory Rate Blood Pressure Pulse Oximetry Intake & Output 05/10/18 05/10/18 05/11/18 06:59 18:59 06:59 Intake Total 1000 / 1000 Output Total 850 / 850 Balance -850 / -850 1000 / 1000 Weight 56.1 kg Intake: IV 1000 / 1000 NS Inj 1,000 ML @ 75 mls/hr IV. 1000 / 1000 CONT .[id number] [facility] Rx#:[id number] Output: Urine Amount (Catheter) 850 / 850 Indwelling Urethral Catheter 850 / 850 Other: Date of Last Bowel Movement 05/07/18 05/07/18 Narrative: General patient appears comfortable laying in bed. Patient is following simple commands. He appears to be oriented about what is currently going on with his condition. HEENT extraocular movements are intact, clear oropharyngeal mucosa, no JVD Cardiovascular S1-S2 audible, RRR, no murmurs rubs or gallops Respiratory clear to auscultation bilaterally Abdomen soft, nontender, nondistended, normal bowel sounds, PEG tube in place, Chapin catheter in place. Extremities no edema 2+ distal pulses in bilateral upper and lower extremities Neuro patient is a aphasic, he responds to yes and no. 3 out of 5 strength of the right upper and right lower extremity. Sensation is intact bilaterally. - Urinary Catheter Management Condom Cath placed during this visit: no Indwelling Urethral Catheter Cath placed during this visit: yes Reason for continuing: Chronic Urinary Retention Insertion date: 05/04/18 Results - Labs CBC & Chem 7: 05/10/18 05:33 05/09/18 07:45 Laboratory Results - last 24 hr 05/10/18 05:33 Hgb 8.9 L Hct 26.6 L - Imaging Impressions Chest X-Ray 05/10/18 17:32 CONCLUSION: Left lower lobe atelectasis versus pneumonia. There has been no significant change when compared to the prior exam. - Procedures (1) Esophageal stricture - Post Procedure Diagnosis (1) Esophageal stricture - Procedure Information Procedure Date: 05/03/18 Supervising Radiologist: Ezekiel Robertson Jr, MD Proceduralist/Assist: Angelina Maguire Estimated blood loss (mL): 0 Anesthesia: Conscious Sedation - Plan of Activity Patient to Unit: ROPU Patient Condition: Good See PACS Report for procedural detail/treatment. Feeding Tube Feeding Tube: Gastrostomy Procedure: Placement Mexican Tube Size: 18 Findings: US and fluoro guided G tube placement. In good position. Plan: T fasteners will fall off on their own in 2-3 weeks. Assessment and Plan - Plan impression Hemoptysis,minor, resolved respiratory failure pneumonia due to recurrent aspiration oesophageal dilitation S/P CVA HYPERBILIRUBINEMIA stable CXRAY plan o2 as needed pulmonary toilet outlook poor
[2018-05-11] MEDS: Pantoprazole Inj 40 MG Vial IV.PUSH SCH ×2 (03:39→17:14)
[2018-05-11] MEDS: Sodium Chloride 0.9% 2 ML Flush BID IV.FLUSH SCH (11:02)
[2018-05-11] MEDS: Sod Chloride 0.9% Inj 1,000 ML IV.CONT SCH (15:53)
--- NOTE | 2018-05-11 16:38 | P.PNIM ---
Subjective Interval history: Patient is not in any acute distress. Physical Exam Vital signs: Vital Signs 05/10/18 17:00 05/10/18 18:48 05/10/18 19:00 Temperature 98.3 F Pulse Rate 110 H 110 H 107 H Respiratory Rate 20 Blood Pressure 94/56 L Pulse Oximetry 97 05/10/18 20:00 05/10/18 21:00 05/10/18 22:00 Temperature Pulse Rate 105 H 102 H 103 H Respiratory Rate Blood Pressure Pulse Oximetry 05/10/18 23:00 05/11/18 00:00 05/11/18 01:00 Temperature 98 F Pulse Rate 97 H 97 H 100 H Respiratory Rate 18 Blood Pressure 97/69 L Pulse Oximetry 96 05/11/18 02:00 05/11/18 03:00 05/11/18 04:00 Temperature 98.1 F Pulse Rate 96 H 96 H 96 H Respiratory Rate 18 Blood Pressure 101/68 Pulse Oximetry 96 05/11/18 05:00 05/11/18 06:00 05/11/18 07:00 Temperature 97.9 F Pulse Rate 95 H 97 H 96 H Respiratory Rate 16 Blood Pressure 95/67 L Pulse Oximetry 95 05/11/18 08:00 05/11/18 09:00 05/11/18 10:00 Temperature Pulse Rate 98 H 100 H 96 H Respiratory Rate Blood Pressure Pulse Oximetry 96 05/11/18 11:00 05/11/18 12:00 05/11/18 13:00 Temperature 98.0 F Pulse Rate 95 H 96 H 92 H Respiratory Rate 16 Blood Pressure 96/69 L Pulse Oximetry 96 Intake & Output 05/10/18 05/11/18 05/11/18 18:59 06:59 18:59 Intake Total 1000 / 1000 1550 / 1550 1000 / 1000 Output Total 600 / 600 600 / 600 Balance 400 / 400 950 / 950 1000 / 1000 Weight 58.6 kg Intake: IV 1000 / 1000 1000 / 1000 1000 / 1000 NS Inj 1,000 ML @ 75 mls/hr IV. 1000 / 1000 1000 / 1000 1000 / 1000 CONT .[id number] [facility] Rx#:[id number] Oral 0 / 0 0 / 0 Tube Feeding 350 / 350 Tube Irrigant 200 / 200 Output: Urine 600 / 600 Urine Amount (Catheter) 600 / 600 Indwelling Urethral Catheter 600 / 600 Other: Date of Last Bowel Movement 05/10/18 05/10/18 # Incontinent Bowel Movements 2 0 Narrative: General patient appears comfortable laying in bed. Patient is following simple commands. He appears to be oriented about what is currently going on with his condition. HEENT extraocular movements are intact, clear oropharyngeal mucosa, no JVD Cardiovascular S1-S2 audible, RRR, no murmurs rubs or gallops Respiratory clear to auscultation bilaterally Abdomen soft, nontender, nondistended, normal bowel sounds, PEG tube in place, Chapin catheter in place. Extremities no edema 2+ distal pulses in bilateral upper and lower extremities Neuro patient is a aphasic, he responds to yes and no. 3 out of 5 strength of the right upper and right lower extremity. Sensation is intact bilaterally. - Urinary Catheter Management Condom Cath placed during this visit: no Indwelling Urethral Catheter Cath placed during this visit: yes Reason for continuing: Chronic Urinary Retention Insertion date: 05/04/18 Results - Labs CBC & Chem 7: 05/10/18 05:33 05/09/18 07:45 - Procedures (1) Esophageal stricture - Post Procedure Diagnosis (1) Esophageal stricture - Procedure Information Procedure Date: 05/03/18 Supervising Radiologist: Ezekiel Robertson Jr, MD Proceduralist/Assist: Angelina Maguire Estimated blood loss (mL): 0 Anesthesia: Conscious Sedation - Plan of Activity Patient to Unit: ROPU Patient Condition: Good See PACS Report for procedural detail/treatment. Feeding Tube Feeding Tube: Gastrostomy Procedure: Placement Turkmen Tube Size: 18 Findings: US and fluoro guided G tube placement. In good position. Plan: T fasteners will fall off on their own in 2-3 weeks. Assessment and Plan - Plan This patient is a 57-year-old male with a diagnosis of gastroesophageal reflux disease, history of ischemic CVA with right-sided hemiparesis. The patient presented to our emergency department today accompanied by his significant other who says that over the past 1 month the patient has had some dysphagia, and has been coughing over the past week. He has an extensive tobacco smoking history and has been smoking nearly 2 packs of cigarettes per day since the age of 18. Due to the patient's history of CVA he was having difficulty swallowing , during this hospitalization he received a PEG tube. 05/11/2018 Patient was evaluated. He does not appear to be in any acute distress. Plan is for the patient to be discharged to a long-term facility. He will need wound care for a sacral ulcer at the long-term facility. Please see my discharge summary for the plan and recommendations. My discharge summary is listed below. The patient does not need to be on isolation after he is discharged from our facility, as I was informed that this was a concern at the long-term facility. Patient will need to be on a low air loss bed at the long-term facility because of his pressure ulcer as per wound care. He will need continued care of the sacral ulcer at the long-term facility. This was discussed with case management, the patient's nurse at our facility and she was advised to discuss this with the long-term facility when she signs out to the nurse at the long-term facility. 1. Acute hypoxic hypercapnic respiratory failure secondary to aspiration pneumonia 2. Tobacco abuse Initially when the patient arrived he was found to be hypoxic and hypercapnic. There was a concern for pulmonary embolus. A CT a of the chest was done which did not show any findings consistent with pulmonary embolus. The CTA did show debris's in the right mainstem bronchus likely due to aspiration. The patient has a history of CVA and was having difficulty swallowing a few weeks prior to admission according to his significant other. He was started on IV antibiotics for aspiration pneumonia. He was subsequently titrated off of supplemental oxygen and is now on room air. The patient has completed his course of antibiotic treatment. He also has an extensive history of tobacco use. A discussion was held with the patient as well as the patient's significant other about his smoking history and his history of CVA. They agree that he should stop smoking. The patient now has a PEG tube which may help with the risk of aspiration however aspiration is still possibility even with PEG tube feeds. 3. Esophageal stricture Chest imaging also showed an esophageal stricture. He was evaluated by GI and recommendations for the patient were to undergo PEG tube placement. Treatment and management for the esophageal stricture is not urgent or emergent at this point. GI recommends that he follow-up outpatient given that the patient currently has a PEG tube and is receiving feeds through the PEG tube. The esophageal stricture can be addressed outpatient. The plan is to continue feeds with vital 1.5 at 45 mL/h. Residuals should be checked throughout the day. 4. Urinary retention Patient was found to have meatal stenosis. Chapin catheter was very difficult to place by nursing staff and urology had to be consulted to place the Chapin catheter. He will be discharged with a Chapin catheter in place and the plan is to have the patient follow-up outpatient with urology for further management of the meatal stenosis. 5. History of ischemic CVA The patient has a history of CVA and has difficulty speaking. He does answer yes and no to questions otherwise it is difficult to have a conversation with him. He has motor weakness of his right upper and right lower extremity. Patient has been n.p.o. and currently has a PEG tube in place and is receiving feeds through the PEG. Continue aspirin, statin through the PEG tube. The patient will also be continued on PT/OT at the [facility]. Patient can also be given pain medications as needed at the [facility]. Continue DVT prophylaxis at the [facility]. 6. Sacral ulcer Continue wound care at the long-term [facility].Patient will need to be on a low air loss bed at the [facility] because of his pressure ulcer as per wound care. He will need continued care of the sacral ulcer at the long-term facility. This was discussed with case management, the patient's nurse at our facility and she was advised to discuss this with the long-term facility when she signs out to the nurse at the long-term [facility]. 7. Normocytic anemia Patient currently has a hemoglobin of 8.9 and was around 8.6 yesterday. No significant change in the patient's hemoglobin over the past couple of days. I recommend that the patient have outpatient workup of his anemia including iron studies. LDH is normal, bilirubin is normal so I do not believe the patient is hemolyzing. No signs of active bleeding and the patient's hemoglobin has actually increased since yesterday. Will be discharged to a long-term facility today.
--- NOTE | 2018-05-11 18:38 | P.PNPL ---
Subjective Interval history: 57 YOWM with CVA, Pn No more hemoptysis On RA No SOB Physical Exam Vital signs: Vital Signs 05/10/18 18:48 05/10/18 19:00 05/10/18 20:00 Temperature 98.3 F Pulse Rate 110 H 107 H 105 H Respiratory Rate 20 Blood Pressure 94/56 L Pulse Oximetry 97 05/10/18 21:00 05/10/18 22:00 05/10/18 23:00 Temperature 98 F Pulse Rate 102 H 103 H 97 H Respiratory Rate 18 Blood Pressure 97/69 L Pulse Oximetry 96 05/11/18 00:00 05/11/18 01:00 05/11/18 02:00 Temperature Pulse Rate 97 H 100 H 96 H Respiratory Rate Blood Pressure Pulse Oximetry 05/11/18 03:00 05/11/18 04:00 05/11/18 05:00 Temperature 98.1 F Pulse Rate 96 H 96 H 95 H Respiratory Rate 18 Blood Pressure 101/68 Pulse Oximetry 96 05/11/18 06:00 05/11/18 07:00 05/11/18 08:00 Temperature 97.9 F Pulse Rate 97 H 96 H 98 H Respiratory Rate 16 Blood Pressure 95/67 L Pulse Oximetry 95 96 05/11/18 09:00 05/11/18 10:00 05/11/18 11:00 Temperature 98.0 F Pulse Rate 100 H 96 H 95 H Respiratory Rate 16 Blood Pressure 96/69 L Pulse Oximetry 96 05/11/18 12:00 05/11/18 13:00 05/11/18 14:00 Temperature Pulse Rate 96 H 92 H 96 H Respiratory Rate Blood Pressure Pulse Oximetry 05/11/18 15:00 05/11/18 16:00 05/11/18 17:00 Temperature 98.3 F Pulse Rate 100 H 104 H 103 H Respiratory Rate 16 Blood Pressure 96/70 L Pulse Oximetry 96 Intake & Output 05/10/18 05/11/18 05/11/18 18:59 06:59 18:59 Intake Total 1000 / 1000 1550 / 1550 1000 / 1000 Output Total 600 / 600 600 / 600 2900 / 2900 Balance 400 / 400 950 / 950 -1900 / -1900 Weight 58.6 kg Intake: IV 1000 / 1000 1000 / 1000 1000 / 1000 NS Inj 1,000 ML @ 75 mls/hr IV. 1000 / 1000 1000 / 1000 1000 / 1000 CONT .[id number] [facility] Rx#:[id number] Oral 0 / 0 0 / 0 Tube Feeding 350 / 350 Tube Irrigant 200 / 200 Output: Urine 600 / 600 Urine Amount (Catheter) 600 / 600 2900 / 2900 Indwelling Urethral Catheter 600 / 600 2900 / 2900 Other: Date of Last Bowel Movement 05/10/18 05/10/18 # Incontinent Bowel Movements 2 0 GENERAL: MBMN NAD SKIN: Warm and dry. HEAD: Normocephalic. EYES: No scleral icterus. No injection or drainage. NECK: Supple, trachea midline. No JVD or lymphadenopathy. CARDIOVASCULAR: Regular rate and rhythm without murmurs, gallops, or rubs. RESPIRATORY: Breath sounds equal bilaterally. No accessory muscle use. GASTROINTESTINAL: Abdomen soft, non-tender, nondistended. MUSCULOSKELETAL: No cyanosis, or edema. Contractures BACK: Nontender without obvious deformity. No CVA tenderness. - Urinary Catheter Management Condom Cath placed during this visit: no Indwelling Urethral Catheter Cath placed during this visit: yes Reason for continuing: Acute urinary retention Insertion date: 05/04/18 Assessment and Plan - Plan IMPRESSION: Minor hemoptysis Pneumonia. CVA PLAN: Stable on RA No more hemoptysis Stable from Pulm standpoint DC plans for AL
== END 2018-05-11 19:20 ==
LOC: NEPE 20:31 → NEDA 04-26 12:01 → HIMC 04-26 15:30 → HCIS 04-28 21:56
PROVIDERS: ADMIT Hospitalist; ATTEND Hospitalist

== ENCOUNTER 2018-05-23 17:51 | Inpatient (IN) ==
[2018-05-23] MEDS ORDERED: Etomidate Inj 40 MG/20 ML Vial IV.PUSH ONE (18:00)
[2018-05-23] MEDS ORDERED: Vancomycin Inj 1,000 MG in Sodium Chlor 0.9% Inj 250 ML IV.SIG ONE (18:02)
[2018-05-23] MEDS ORDERED: Piperacil/Tazo 4.5 GM Premix 4.5 GM/100 ML BAG IV.SIG ONE (18:02)
[2018-05-23 18:22] LABS: ABG Base Excess 3.1 mmol/L (-2-2); ABG PCO2 32 mmHg (38-42); ABG PO2 64 mmHg (61-120)
--- NOTE | 2018-05-23 18:39 | XR ---
EXAM DATE: 05/23/2018 6:35 PM EST AGE/SEX: 57 years / Male INDICATIONS: Short of breath. CLINICAL DATA: This is the patient's initial encounter. Patient reports that signs and symptoms have been present for 1 day and indicates a pain score of Nonresponsive. MEDICAL/SURGICAL HISTORY: . Gastroesophageal reflux disease. Stroke. Ischemic CVA. None. [place] [facility] [place]. . FINDINGS: The patient is rotated to the right and the lateral left lung is not included in the [id number] of the exam. The visualized portion of the lungs are clear. The heart is normal in size when taking int o account patient rotation. The visualized portion of both hemidiaphragms well delineated. CONCLUSION: Lungs are clear. Electronically signed by: Eezkiel Guillen MD 05/23/2018 6:38 PM EST
[2018-05-23 18:55] LABS: Baso # (Auto) 0.1 th/mm3 (0.0-0.2); Baso % (Auto) 0.3 % (0.0-2.0); Eos % (Auto) 0.1 % (0.0-4.0); Hematocrit 36.5 % (39.0-51.0); Hemoglobin 11.3 gm/dL (13.0-17.0); Lymph # (Auto) 1.4 th/mm3 (1.0-4.8); Lymph % (Auto) 5.3 % (9.0-44.0); Mean Corpuscular Hemoglobin 27.8 pg (27.0-34.0); Mean Corpuscular Volume 89.6 fL (80.0-100.0); Mono # (Auto) 2.7 th/mm3 (0.0-0.9); Mono % (Auto) 10.1 % (0.0-8.0); Neut # (Auto) 22.4 th/mm3 (1.8-7.7); Neut % (Auto) 84.2 % (16.0-70.0); Platelet Count 681 th/mm3 (150-450); Red Blood Count 4.08 mil/mm3 (4.50-5.90); Red Cell Distribution Width 19.6 % (11.6-17.2); White Blood Count 26.6 th/mm3 (4.0-11.0)
[2018-05-23] MEDS ORDERED: MethylPREDNISolone Sod Succinate Inj 125 MG/2 ML Vial IV.PUSH ONE (18:57)
[2018-05-23] MEDS ORDERED: Sod Chloride 0.9% Inj 1,000 ML IV.SIG SCH ×2 (19:15)
[2018-05-23 19:29] LABS: Anion Gap 10 meq/L (5-15); Carbon Dioxide 25.3 meq/L (21.0-32.0); Chloride 112 meq/L (98-107); Glomerular Filtration Rate Greater Than 89 mL/min (>89); Lymphocytes 5 % (9-44); Monocytes 10 % (0-8); Potassium 4.4 meq/L (3.5-5.1); Sodium 147 meq/L (136-145)
[2018-05-23 19:30] LABS: Alanine Aminotransferase 151 U/L (12-78); Aspartate Aminotransferase 85 U/L (15-37); Blood Urea Nitrogen 25 mg/dL (7-18); Calcium 8.9 mg/dL (8.5-10.1); Glucose,Random 103 mg/dL (74-106); Magnesium 2.3 mg/dL (1.5-2.5); Ovalocytes 1+; Platelet Morphology Normal (Normal); Stomatocytes 1+; Troponin I 0.09 ng/mL (0.02-0.05)
[2018-05-23 19:31] LABS: Albumin 2.5 g/dL (3.4-5.0); Alkaline Phosphatase 183 U/L (45-117); Total Protein 6.9 g/dL (6.4-8.2)
[2018-05-23 19:40] LABS: Bacteria,Urine Moderate /hpf; Bilirubin,Urine Negative (Negative); Clarity,Urine Cloudy (Clear); Color,Urine Yellow (Yellw/Straw); Glucose,Urine (UA) Negative (Negative); Leukocyte Esterase,Urine Large (Negative); Mucus,Urine Few /lpf (Occasional); Nitrite,Urine Negative (Negative); Specific Gravity,Urine 1.024 (1.002-1.035); Squamous Epithelial Cell,Urine <1 /hpf (0-5)
[2018-05-23 19:50] LABS: Activated Partial Thrombo Time 25.8 sec (23.4-31.7); INR 1.1 Ratio; Prothrombin Time 10.8 sec (9.8-11.6)
--- NOTE | 2018-05-23 20:25 | ED ---
HPI General Chief complaint: Shortness of Breath/Dyspnea Stated complaint: sob/evac Time Seen by Provider: 05/23/18 17:55 History of Present Illness HPI narrative: Patient 57-year-old male who according to his is only able to speak in yes and no at baseline after a stroke leaving him mostly bedridden with severe deficits. He presents emergency department for change in mental status. EMS reported that his initial saturations in the low 70s on 2. His is concerned because he is gone through several relapses of these hypoxic episodes was recently released from the hospital. Is been diagnosed with pneumonia. Patient's history is otherwise limited, duration of symptoms is really unknown. Symptoms are severe however. Context as above. would like him to remain a full code with aggressive measures. Related Data Home Medications Medication Instructions Recorded Confirmed arginine-vitamin C-vitamin E 1 packet FEEDING TUBE BID 05/23/18 05/23/18 [Arginaid] ascorbic acid (vitamin C) [Vitamin 500 mg FEEDING TUBE BID 05/23/18 05/23/18 C] baclofen 10 mg FEEDING TUBE BID 05/23/18 05/23/18 guaifenesin [Mucinex] 600 mg PO Q12H 05/23/18 05/23/18 levofloxacin [Levaquin] 500 mg FEEDING TUBE DAILY 05/23/18 05/23/18 multivitamin with minerals 15 ml FEEDING TUBE DAILY 05/23/18 05/23/18 zinc sulfate 220 mg FEEDING TUBE DAILY 05/23/18 05/23/18 Previous Rx's Medication Instructions Recorded aspirin 81 mg PO DAILY tab 05/10/18 atorvastatin [Lipitor] 40 mg PO DAILY #30 tab 05/10/18 pantoprazole [Protonix] 40 mg PO DAILY #30 tab 05/10/18 Allergies Allergy/AdvReac Type Severity Reaction Status Date / Time No Known Allergies Allergy Verified 04/25/18 20:36 Review of Systems ROS: all other systems reviewed are negative [facility] Social History Social History Substance History: No History of Abuse Second Hand Smoke Exposure: Yes Smoking Status: Former smoker Tobacco Type: Cigarettes Packs Per Day: 2 Cigarettes Per Day: 40.0 Smoking End Date: in past 6 months How Often Do You Have a Drink Containing Alcohol: 4 or more times a week Recent Travel in [facility] within the Last 8 Weeks: No Recent Out of Country Travel within the Last 8 Weeks: No Immunization History Tetanus Immunization: Unable to Assess Exam Narrative Exam Narrative: GENERAL: Well-developed well-nourished, significant atrophy bilateral lower extremities, heavily bearded. SKIN: Focused skin assessment warm/dry. HEAD: Atraumatic. Normocephalic. EYES: Pupils equal and round. No scleral icterus. No injection or drainage. ENT: No nasal bleeding or discharge. Mucous membranes pink and moist. NECK: Trachea midline. No JVD. CARDIOVASCULAR: Regular rhythm with tachycardia no murmur appreciated. RESPIRATORY: No accessory muscle use. Rhonchorous breath sounds bilaterally, decreased on the right. Breath sounds equal bilaterally. GASTROINTESTINAL: Abdomen soft, non-tender, nondistended. Hepatic and splenic margins not palpable. MUSCULOSKELETAL: No obvious deformities. No clubbing. No cyanosis. No edema. NEUROLOGICAL: Awake, GCS v-2,m4,E4=10. 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 He does move his right upper extremity occasionally. It appears to be purposeful movement pain is reaching towards mask however cannot be sure. He is mostly nonverbal and when he does verbalize is nonsensical. PSYCHIATRIC: Unable to properly assess. Course Initial Documented Vital Signs Temperature 98.8 F 05/23/18 17:56 Pulse Rate 136 H 05/23/18 17:56 Respiratory Rate 37 H 05/23/18 17:56 Blood Pressure 144/86 H 05/23/18 17:56 Pulse Oximetry 91 L 05/23/18 17:56 Last Documented Vital Signs Temperature 97.4 F L 05/29/18 12:00 Pulse Rate 98 H 05/29/18 12:00 Respiratory Rate 17 05/29/18 12:00 Blood Pressure 130/74 05/29/18 12:00 Pulse Oximetry 100 05/29/18 12:00 Critical Care Time Critical Care Time: Yes Total Critical Care Time: 35 Attestation: aggregate critical care time was 35 minutes. Time to perform other separately billable procedures was not included in the critical care time. My time did not include minutes spent treating any other patients simultaneously or on activities that did not directly contribute to the patient's treatment. The services I provided to this patient were to treat and/or prevent clinically significant deterioration that could result in: , disability, organ failure I provided critical care services requiring my management, as noted below: Chart data review, documentation time, medication orders and management, vital sign assessments/reviewing monitor data, ordering and reviewing lab tests, ordering and interpreting/reviewing x-rays and diagnostic studies, care of the patient and discussion of the patient with the admitting physicians. Medical Decision Making MDM Narrative Medical decision making narrative: Patient 57-year-old male with a history of stroke leaving him mostly bedridden presents emergency department for evaluation of low saturations and decreased mental status of the past few days. Found to be in ARDS, chest x-ray clear, he is actually in respiratory alkalosis with low PCO2 and low FiO2 even on nonrebreather which is required to maintain his sats greater than 90%. Patient's airway is questionable but for the time being he appears to be protecting it and I have witnessed some swelling once or twice. Patient ultimately discussed with Dr. Garcia, he was started on broad-spectrum antibiotics, 2 L normal saline given in the emergency department. He is on the verge of being intubated and remains a full code according to his . Patient was aggressively suctioned in the emergency department as well and a sputum sample was sent. Medical Screen Exam Complete: Yes Emergency Medical Condition: Yes Lab Data Result diagrams: 05/29/18 06:28 05/28/18 05:54 Lab Results 05/23/18 05/23/18 05/23/18 Range/Units 18:10 18:12 18:12 WBC 26.6 H (4.0-11.0) th/mm3 RBC 4.08 L (4.50-5.90) mil/mm3 Hgb 11.3 L (13.0-17.0) gm/dL Hct 36.5 L (39.0-51.0) % MCV 89.6 (80.0-100.0) fL MCH 27.8 (27.0-34.0) pg MCHC 31.0 L (32.0-36.0) % RDW 19.6 H (11.6-17.2) % Plt Count 681 H D (150-450) th/mm3 MPV 8.0 (7.0-11.0) fL Prelim Diff (Auto) Slide review pending Neut % (Auto) 84.2 H (16.0-70.0) % Lymph % (Auto) 5.3 L (9.0-44.0) % Pitkin % (Auto) 10.1 H (0.0-8.0) % Eos % (Auto) 0.1 (0.0-4.0) % Baso % (Auto) 0.3 (0.0-2.0) % Neut # (Auto) 22.4 H (1.8-7.7) th/mm3 Lymph # (Auto) 1.4 (1.0-4.8) th/mm3 [place]kin # (Auto) 2.7 H (0.0-0.9) th/mm3 Eos # (Auto) 0.0 (0.0-0.4) th/mm3 Baso # (Auto) 0.1 (0.0-0.2) th/mm3 WBC Differential Manual diff final Seg Neuts % (Manual) 75 H (16-70) % Band Neuts % (Manual) 10 H (0-6) % Lymphocytes % (Manual) 5 L (9-44) % Monocytes % (Manual) 10 H (0-8) % Abs Neuts (Manual) 22.6 H (1.8-7.7) th/mm3 Differential Comment . Platelet Estimate High H (Normal) Platelet Morphology Normal (Normal) Ovalocytes 1+ H (None) Stomatocytes 1+ H (None) PT 10.8 (9.8-11.6) sec INR 1.1 Ratio APTT 25.8 (23.4-31.7) sec Puncture Site Left radial Patient Temperature 98.6 O2 Saturation 90 (90-100) % ABG pH 7.52 H* (7.380-7.420) ABG pCO2 32 L (38-42) mmHg ABG pO2 64 (61-120) mmHg ABG HCO3 26 (22-26) mmol/L ABG O2 Content 13.1 (12.0-20.0) Vol % ABG Base Excess 3.1 H (-2-2) mmol/L ABG Methemoglobin 0.4 (0-2) % Sean Test Present Hemoglobin 10.3 L (12.0-16.0) G/DL Carboxyhemoglobin 2.2 (0-4) % O2 Delivery Device Nrb Liter Flow 15.00 L/M Inspired O2 100 % Critical Value Yes Sodium (136-145) meq/L Potassium (3.5-5.1) meq/L Chloride (98-107) meq/L Carbon Dioxide (21.0-32.0) meq/L Anion Gap (5-15) meq/L BUN (7-18) mg/dL Creatinine (0.60-1.30) mg/dL Estimated GFR (>89) mL/min POC Glucose (68-110) mg/dl Random Glucose (74-106) mg/dL Lactic Acid (0.4-2.0) mmol/L Calcium (8.5-10.1) mg/dL Phosphorus (2.5-4.9) mg/dL Magnesium (1.5-2.5) mg/dL Total Bilirubin (0.2-1.0) mg/dL AST (15-37) U/L ALT (12-78) U/L Alkaline Phosphatase (45-117) U/L Troponin I (0.02-0.05) ng/mL Total Protein (6.4-8.2) g/dL Albumin (3.4-5.0) g/dL Urine Color (Yellw/Straw) Urine Clarity (Clear) Urine pH (5.0-8.5) Ur Specific [place] (1.002-1.035) Urine Protein (Neg-Trace) mg/dL Urine Glucose (UA) (Negative) mg/dL Urine Ketones (Negative) mg/dL Urine Occult Blood (Negative) Urine Nitrate (Negative) Urine Bilirubin (Negative) Urine Urobilinogen (Less than 2) mg/dL Ur Leukocyte Esterase (Negative) Urine RBC (0-3) /hpf Urine WBC (0-5) /hpf Ur Squamous Epith Cells (0-5) /hpf Urine Bacteria (None) /hpf Urine Mucus (Occasional) /lpf Urine Yeast (None) /hpf Micro UA Comment Ur Microscopic Review Urine Culture Comments Nasal Screen MRSA (PCR) (Negative) Vancomycin Trough (5.0-10.0) mcg/mL 05/23/18 05/23/18 05/23/18 Range/Units 18:12 18:12 18:20 WBC (4.0-11.0) th/mm3 RBC (4.50-5.90) mil/mm3 Hgb (13.0-17.0) gm/dL Hct (39.0-51.0) % MCV (80.0-100.0) fL MCH (27.0-34.0) pg MCHC (32.0-36.0) % RDW (11.6-17.2) % Plt Count (150-450) th/mm3 MPV (7.0-11.0) fL Prelim Diff (Auto) Neut % (Auto) (16.0-70.0) % Lymph % (Auto) (9.0-44.0) % [place]kin % (Auto) (0.0-8.0) % Eos % (Auto) (0.0-4.0) % Baso % (Auto) (0.0-2.0) % Neut # (Auto) (1.8-7.7) th/mm3 Lymph # (Auto) (1.0-4.8) th/mm3 [place]kin # (Auto) (0.0-0.9) th/mm3 Eos # (Auto) (0.0-0.4) th/mm3 Baso # (Auto) (0.0-0.2) th/mm3 WBC Differential Seg Neuts % (Manual) (16-70) % Band Neuts % (Manual) (0-6) % Lymphocytes % (Manual) (9-44) % Monocytes % (Manual) (0-8) % Abs Neuts (Manual) (1.8-7.7) th/mm3 Differential Comment Platelet Estimate (Normal) Platelet Morphology (Normal) Ovalocytes (None) Stomatocytes (None) PT (9.8-11.6) sec INR Ratio APTT (23.4-31.7) sec Puncture Site Patient Temperature O2 Saturation (90-100) % ABG pH (7.380-7.420) ABG pCO2 (38-42) mmHg ABG pO2 (61-120) mmHg ABG HCO3 (22-26) mmol/L ABG O2 Content (12.0-20.0) Vol % ABG Base Excess (-2-2) mmol/L ABG Methemoglobin (0-2) % Sean Test Hemoglobin (12.0-16.0) G/DL Carboxyhemoglobin (0-4) % O2 Delivery Device Liter Flow L/M Inspired O2 % Critical Value Sodium 147 H (136-145) meq/L Potassium 4.4 (3.5-5.1) meq/L Chloride 112 H (98-107) meq/L Carbon Dioxide 25.3 (21.0-32.0) meq/L Anion Gap 10 (5-15) meq/L BUN 25 H (7-18) mg/dL Creatinine 0.42 L (0.60-1.30) mg/dL Estimated GFR Greater than 89 (>89) mL/min POC Glucose (68-110) mg/dl Random Glucose 103 (74-106) mg/dL Lactic Acid 1.7 (0.4-2.0) mmol/L Calcium 8.9 (8.5-10.1) mg/dL Phosphorus (2.5-4.9) mg/dL Magnesium 2.3 (1.5-2.5) mg/dL Total Bilirubin 0.4 (0.2-1.0) mg/dL AST 85 H (15-37) U/L ALT 151 H (12-78) U/L Alkaline Phosphatase 183 H (45-117) U/L Troponin I 0.09 H (0.02-0.05) ng/mL Total Protein 6.9 (6.4-8.2) g/dL Albumin 2.5 L (3.4-5.0) g/dL Urine Color Yellow (Yellw/Straw) Urine Clarity Cloudy H (Clear) Urine pH 5.0 (5.0-8.5) Ur Specific [place] 1.024 (1.002-1.035) Urine Protein 30 H (Neg-Trace) mg/dL Urine Glucose (UA) Negative (Negative) mg/dL Urine Ketones Negative (Negative) mg/dL Urine Occult Blood Negative (Negative) Urine Nitrate Negative (Negative) Urine Bilirubin Negative (Negative) Urine Urobilinogen Less than 2 (Less than 2) mg/dL Ur Leukocyte Esterase Large H (Negative) Urine RBC 14 H (0-3) /hpf Urine WBC 102 H (0-5) /hpf Ur Squamous Epith Cells <1 (0-5) /hpf Urine Bacteria Moderate H (None) /hpf Urine Mucus Few H (Occasional) /lpf Urine Yeast Few H (None) /hpf Micro UA Comment Cath-culture ind Ur Microscopic Review Not Reportable Urine Culture Comments Cath-cult indicated Nasal Screen MRSA (PCR) (Negative) Vancomycin Trough (5.0-10.0) mcg/mL 05/23/18 05/24/18 05/24/18 Range/Units 23:45 04:19 04:19 WBC 20.2 H (4.0-11.0) th/mm3 RBC 3.23 L (4.50-5.90) mil/mm3 Hgb 9.0 L D (13.0-17.0) gm/dL Hct 29.3 L (39.0-51.0) % MCV 90.9 (80.0-100.0) fL MCH 27.8 (27.0-34.0) pg MCHC 30.6 L (32.0-36.0) % RDW 20.4 H (11.6-17.2) % Plt Count 464 H D (150-450) th/mm3 MPV 7.8 (7.0-11.0) fL Prelim Diff (Auto) Manual diff required Neut % (Auto) (16.0-70.0) % Lymph % (Auto) (9.0-44.0) % [place]kin % (Auto) (0.0-8.0) % Eos % (Auto) (0.0-4.0) % Baso % (Auto) (0.0-2.0) % Neut # (Auto) (1.8-7.7) th/mm3 Lymph # (Auto) (1.0-4.8) th/mm3 [place]kin # (Auto) (0.0-0.9) th/mm3 Eos # (Auto) (0.0-0.4) th/mm3 Baso # (Auto) (0.0-0.2) th/mm3 WBC Differential Manual diff final Seg Neuts % (Manual) 93 H (16-70) % Band Neuts % (Manual) 2 (0-6) % Lymphocytes % (Manual) 5 L (9-44) % Monocytes % (Manual) (0-8) % Abs Neuts (Manual) 19.2 H (1.8-7.7) th/mm3 Differential Comment . Platelet Estimate High H (Normal) Platelet Morphology Normal (Normal) Ovalocytes (None) Stomatocytes (None) PT 11.4 (9.8-11.6) sec INR 1.1 Ratio APTT 34.7 H D (23.4-31.7) sec Puncture Site Patient Temperature O2 Saturation (90-100) % ABG pH (7.380-7.420) ABG pCO2 (38-42) mmHg ABG pO2 (61-120) mmHg ABG HCO3 (22-26) mmol/L ABG O2 Content (12.0-20.0) Vol % ABG Base Excess (-2-2) mmol/L ABG Methemoglobin (0-2) % Sean Test Hemoglobin (12.0-16.0) G/DL Carboxyhemoglobin (0-4) % O2 Delivery Device Liter Flow L/M Inspired O2 % Critical Value Sodium (136-145) meq/L Potassium (3.5-5.1) meq/L Chloride (98-107) meq/L Carbon Dioxide (21.0-32.0) meq/L Anion Gap (5-15) meq/L BUN (7-18) mg/dL Creatinine (0.60-1.30) mg/dL Estimated GFR (>89) mL/min POC Glucose (68-110) mg/dl Random Glucose (74-106) mg/dL Lactic Acid (0.4-2.0) mmol/L Calcium (8.5-10.1) mg/dL Phosphorus (2.5-4.9) mg/dL Magnesium (1.5-2.5) mg/dL Total Bilirubin (0.2-1.0) mg/dL AST (15-37) U/L ALT (12-78) U/L Alkaline Phosphatase (45-117) U/L Troponin I (0.02-0.05) ng/mL Total Protein (6.4-8.2) g/dL Albumin (3.4-5.0) g/dL Urine Color (Yellw/Straw) Urine Clarity (Clear) Urine pH (5.0-8.5) Ur Specific [place] (1.002-1.035) Urine Protein (Neg-Trace) mg/dL Urine Glucose (UA) (Negative) mg/dL Urine Ketones (Negative) mg/dL Urine Occult Blood (Negative) Urine Nitrate (Negative) Urine Bilirubin (Negative) Urine Urobilinogen (Less than 2) mg/dL Ur Leukocyte Esterase (Negative) Urine RBC (0-3) /hpf Urine WBC (0-5) /hpf Ur Squamous Epith Cells (0-5) /hpf Urine Bacteria (None) /hpf Urine Mucus (Occasional) /lpf Urine Yeast (None) /hpf Micro UA Comment Ur Microscopic Review Urine Culture Comments Nasal Screen MRSA (PCR) Mrsa detected (Negative) Vancomycin Trough (5.0-10.0) mcg/mL 05/24/18 05/24/18 05/25/18 Range/Units 04:19 04:19 02:40 WBC (4.0-11.0) th/mm3 RBC (4.50-5.90) mil/mm3 Hgb (13.0-17.0) gm/dL Hct (39.0-51.0) % MCV (80.0-100.0) fL MCH (27.0-34.0) pg MCHC (32.0-36.0) % RDW (11.6-17.2) % Plt Count (150-450) th/mm3 MPV (7.0-11.0) fL Prelim Diff (Auto) Neut % (Auto) (16.0-70.0) % Lymph % (Auto) (9.0-44.0) % [place] % (Auto) (0.0-8.0) % Eos % (Auto) (0.0-4.0) % Baso % (Auto) (0.0-2.0) % Neut # (Auto) (1.8-7.7) th/mm3 Lymph # (Auto) (1.0-4.8) th/mm3 [place] # (Auto) (0.0-0.9) th/mm3 Eos # (Auto) (0.0-0.4) th/mm3 Baso # (Auto) (0.0-0.2) th/mm3 WBC Differential Seg Neuts % (Manual) (16-70) % Band Neuts % (Manual) (0-6) % Lymphocytes % (Manual) (9-44) % Monocytes % (Manual) (0-8) % Abs Neuts (Manual) (1.8-7.7) th/mm3 Differential Comment Platelet Estimate (Normal) Platelet Morphology (Normal) Ovalocytes (None) Stomatocytes (None) PT (9.8-11.6) sec INR Ratio APTT (23.4-31.7) sec Puncture Site Patient Temperature O2 Saturation (90-100) % ABG pH (7.380-7.420) ABG pCO2 (38-42) mmHg ABG pO2 (61-120) mmHg ABG HCO3 (22-26) mmol/L ABG O2 Content (12.0-20.0) Vol % ABG Base Excess (-2-2) mmol/L ABG Methemoglobin (0-2) % Sean Test Hemoglobin (12.0-16.0) G/DL Carboxyhemoglobin (0-4) % O2 Delivery Device Liter Flow L/M Inspired O2 % Critical Value Sodium 150 H (136-145) meq/L Potassium 3.4 L D (3.5-5.1) meq/L Chloride 117 H (98-107) meq/L Carbon Dioxide 24.3 (21.0-32.0) meq/L Anion Gap 9 (5-15) meq/L BUN 19 H (7-18) mg/dL Creatinine 0.32 L (0.60-1.30) mg/dL Estimated GFR Greater than 89 (>89) mL/min POC Glucose 90 (68-110) mg/dl Random Glucose 119 H (74-106) mg/dL Lactic Acid 1.8 (0.4-2.0) mmol/L Calcium 7.5 L D (8.5-10.1) mg/dL Phosphorus 3.1 (2.5-4.9) mg/dL Magnesium 1.9 (1.5-2.5) mg/dL Total Bilirubin 0.5 (0.2-1.0) mg/dL AST 35 (15-37) U/L ALT 89 H (12-78) U/L Alkaline Phosphatase 123 H (45-117) U/L Troponin I (0.02-0.05) ng/mL Total Protein 5.2 L D (6.4-8.2) g/dL Albumin 1.9 L D (3.4-5.0) g/dL Urine Color (Yellw/Straw) Urine Clarity (Clear) Urine pH (5.0-8.5) Ur Specific [place] (1.002-1.035) Urine Protein (Neg-Trace) mg/dL Urine Glucose (UA) (Negative) mg/dL Urine Ketones (Negative) mg/dL Urine Occult Blood (Negative) Urine Nitrate (Negative) Urine Bilirubin (Negative) Urine Urobilinogen (Less than 2) mg/dL Ur Leukocyte Esterase (Negative) Urine RBC (0-3) /hpf Urine WBC (0-5) /hpf Ur Squamous Epith Cells (0-5) /hpf Urine Bacteria (None) /hpf Urine Mucus (Occasional) /lpf Urine Yeast (None) /hpf Micro UA Comment Ur Microscopic Review Urine Culture Comments Nasal Screen MRSA (PCR) (Negative) Vancomycin Trough (5.0-10.0) mcg/mL 05/25/18 05/25/18 05/25/18 Range/Units 05:44 05:44 07:31 WBC 22.9 H (4.0-11.0) th/mm3 RBC 2.98 L (4.50-5.90) mil/mm3 Hgb 7.9 L (13.0-17.0) gm/dL Hct 28.1 L (39.0-51.0) % MCV 94.1 (80.0-100.0) fL MCH 26.6 L (27.0-34.0) pg MCHC 28.3 L (32.0-36.0) % RDW 20.5 H (11.6-17.2) % Plt Count 467 H (150-450) th/mm3 MPV 7.8 (7.0-11.0) fL Prelim Diff (Auto) Neut % (Auto) 87.1 H (16.0-70.0) % Lymph % (Auto) 4.9 L (9.0-44.0) % [place] % (Auto) 7.7 (0.0-8.0) % Eos % (Auto) 0.1 (0.0-4.0) % Baso % (Auto) 0.2 (0.0-2.0) % Neut # (Auto) 19.9 H (1.8-7.7) th/mm3 Lymph # (Auto) 1.1 (1.0-4.8) th/mm3 [place] # (Auto) 1.8 H (0.0-0.9) th/mm3 Eos # (Auto) 0.0 (0.0-0.4) th/mm3 Baso # (Auto) 0.1 (0.0-0.2) th/mm3 WBC Differential . Seg Neuts % (Manual) (16-70) % Band Neuts % (Manual) (0-6) % Lymphocytes % (Manual) (9-44) % Monocytes % (Manual) (0-8) % Abs Neuts (Manual) (1.8-7.7) th/mm3 Differential Comment Auto diff final Platelet Estimate (Normal) Platelet Morphology (Normal) Ovalocytes (None) Stomatocytes (None) PT (9.8-11.6) sec INR Ratio APTT (23.4-31.7) sec Puncture Site Right radial Patient Temperature 98.6 O2 Saturation 97 (90-100) % ABG pH 7.47 H (7.380-7.420) ABG pCO2 32 L (38-42) mmHg ABG pO2 249 H (61-120) mmHg ABG HCO3 23 (22-26) mmol/L ABG O2 Content 11.6 L (12.0-20.0) Vol % ABG Base Excess -0.6 (-2-2) mmol/L ABG Methemoglobin 1.3 (0-2) % Sean Test Present Hemoglobin 8.0 L (12.0-16.0) G/DL Carboxyhemoglobin 1.8 (0-4) % O2 Delivery Device Partial-rebreather Liter Flow 15.00 L/M Inspired O2 % Critical Value No Sodium 147 H (136-145) meq/L Potassium 3.4 L (3.5-5.1) meq/L Chloride 121 H (98-107) meq/L Carbon Dioxide 19.3 L (21.0-32.0) meq/L Anion Gap 7 (5-15) meq/L BUN 24 H (7-18) mg/dL Creatinine 0.36 L (0.60-1.30) mg/dL Estimated GFR Greater than 89 (>89) mL/min POC Glucose (68-110) mg/dl Random Glucose 94 (74-106) mg/dL Lactic Acid (0.4-2.0) mmol/L Calcium 7.6 L (8.5-10.1) mg/dL Phosphorus 2.5 (2.5-4.9) mg/dL Magnesium 2.0 (1.5-2.5) mg/dL Total Bilirubin 0.2 (0.2-1.0) mg/dL AST 30 (15-37) U/L ALT 58 (12-78) U/L Alkaline Phosphatase 106 (45-117) U/L Troponin I (0.02-0.05) ng/mL Total Protein 5.2 L (6.4-8.2) g/dL Albumin 1.4 L (3.4-5.0) g/dL Urine Color (Yellw/Straw) Urine Clarity (Clear) Urine pH (5.0-8.5) Ur Specific [place] (1.002-1.035) Urine Protein (Neg-Trace) mg/dL Urine Glucose (UA) (Negative) mg/dL Urine Ketones (Negative) mg/dL Urine Occult Blood (Negative) Urine Nitrate (Negative) Urine Bilirubin (Negative) Urine Urobilinogen (Less than 2) mg/dL Ur Leukocyte Esterase (Negative) Urine RBC (0-3) /hpf Urine WBC (0-5) /hpf Ur Squamous Epith Cells (0-5) /hpf Urine Bacteria (None) /hpf Urine Mucus (Occasional) /lpf Urine Yeast (None) /hpf Micro UA Comment Ur Microscopic Review Urine Culture Comments Nasal Screen MRSA (PCR) (Negative) Vancomycin Trough (5.0-10.0) mcg/mL 05/25/18 05/25/18 05/26/18 Range/Units 23:17 23:34 07:04 WBC 22.6 H (4.0-11.0) th/mm3 RBC 3.19 L (4.50-5.90) mil/mm3 Hgb 8.7 L (13.0-17.0) gm/dL Hct 28.7 L (39.0-51.0) % MCV 90.0 D (80.0-100.0) fL MCH 27.4 (27.0-34.0) pg MCHC 30.4 L (32.0-36.0) % RDW 19.5 H (11.6-17.2) % Plt Count 535 H (150-450) th/mm3 MPV 8.3 (7.0-11.0) fL Prelim Diff (Auto) Neut % (Auto) 86.8 H (16.0-70.0) % Lymph % (Auto) 5.9 L (9.0-44.0) % [place] % (Auto) 6.7 (0.0-8.0) % Eos % (Auto) 0.1 (0.0-4.0) % Baso % (Auto) 0.5 (0.0-2.0) % Neut # (Auto) 19.7 H (1.8-7.7) th/mm3 Lymph # (Auto) 1.3 (1.0-4.8) th/mm3 [place] # (Auto) 1.5 H (0.0-0.9) th/mm3 Eos # (Auto) 0.0 (0.0-0.4) th/mm3 Baso # (Auto) 0.1 (0.0-0.2) th/mm3 WBC Differential . Seg Neuts % (Manual) (16-70) % Band Neuts % (Manual) (0-6) % Lymphocytes % (Manual) (9-44) % Monocytes % (Manual) (0-8) % Abs Neuts (Manual) (1.8-7.7) th/mm3 Differential Comment Auto diff final Platelet Estimate (Normal) Platelet Morphology (Normal) Ovalocytes (None) Stomatocytes (None) PT (9.8-11.6) sec INR Ratio APTT (23.4-31.7) sec Puncture Site Patient Temperature O2 Saturation (90-100) % ABG pH (7.380-7.420) ABG pCO2 (38-42) mmHg ABG pO2 (61-120) mmHg ABG HCO3 (22-26) mmol/L ABG O2 Content (12.0-20.0) Vol % ABG Base Excess (-2-2) mmol/L ABG Methemoglobin (0-2) % Sean Test Hemoglobin (12.0-16.0) G/DL Carboxyhemoglobin (0-4) % O2 Delivery Device Liter Flow L/M Inspired O2 % Critical Value Sodium 154 H (136-145) meq/L Potassium 3.1 L (3.5-5.1) meq/L Chloride 121 H (98-107) meq/L Carbon Dioxide 27.3 (21.0-32.0) meq/L Anion Gap 6 (5-15) meq/L BUN 19 H (7-18) mg/dL Creatinine 0.34 L (0.60-1.30) mg/dL Estimated GFR Greater than 89 (>89) mL/min POC Glucose 133 H (68-110) mg/dl Random Glucose 115 H (74-106) mg/dL Lactic Acid (0.4-2.0) mmol/L Calcium 7.6 L (8.5-10.1) mg/dL Phosphorus 1.6 L (2.5-4.9) mg/dL Magnesium 2.2 (1.5-2.5) mg/dL Total Bilirubin 0.3 (0.2-1.0) mg/dL AST 50 H (15-37) U/L ALT 82 H (12-78) U/L Alkaline Phosphatase 122 H (45-117) U/L Troponin I (0.02-0.05) ng/mL Total Protein 5.0 L (6.4-8.2) g/dL Albumin 1.9 L (3.4-5.0) g/dL Urine Color (Yellw/Straw) Urine Clarity (Clear) Urine pH (5.0-8.5) Ur Specific [place] (1.002-1.035) Urine Protein (Neg-Trace) mg/dL Urine Glucose (UA) (Negative) mg/dL Urine Ketones (Negative) mg/dL Urine Occult Blood (Negative) Urine Nitrate (Negative) Urine Bilirubin (Negative) Urine Urobilinogen (Less than 2) mg/dL Ur Leukocyte Esterase (Negative) Urine RBC (0-3) /hpf Urine WBC (0-5) /hpf Ur Squamous Epith Cells (0-5) /hpf Urine Bacteria (None) /hpf Urine Mucus (Occasional) /lpf Urine Yeast (None) /hpf Micro UA Comment Ur Microscopic Review Urine Culture Comments Nasal Screen MRSA (PCR) (Negative) Vancomycin Trough 18.3 H (5.0-10.0) mcg/mL 05/26/18 05/27/18 05/27/18 Range/Units 10:46 03:57 03:57 WBC 21.4 H (4.0-11.0) th/mm3 RBC 3.10 L (4.50-5.90) mil/mm3 Hgb 8.5 L (13.0-17.0) gm/dL Hct 27.7 L (39.0-51.0) % MCV 89.5 (80.0-100.0) fL MCH 27.5 (27.0-34.0) pg MCHC 30.8 L (32.0-36.0) % RDW 19.7 H (11.6-17.2) % Plt Count 520 H (150-450) th/mm3 MPV 8.4 (7.0-11.0) fL Prelim Diff (Auto) Neut % (Auto) 83.9 H (16.0-70.0) % Lymph % (Auto) 7.2 L (9.0-44.0) % [place] % (Auto) 7.8 (0.0-8.0) % Eos % (Auto) 0.3 (0.0-4.0) % Baso % (Auto) 0.8 (0.0-2.0) % Neut # (Auto) 18.0 H (1.8-7.7) th/mm3 Lymph # (Auto) 1.5 (1.0-4.8) th/mm3 [place] # (Auto) 1.7 H (0.0-0.9) th/mm3 Eos # (Auto) 0.1 (0.0-0.4) th/mm3 Baso # (Auto) 0.2 (0.0-0.2) th/mm3 WBC Differential . Seg Neuts % (Manual) (16-70) % Band Neuts % (Manual) (0-6) % Lymphocytes % (Manual) (9-44) % Monocytes % (Manual) (0-8) % Abs Neuts (Manual) (1.8-7.7) th/mm3 Differential Comment Auto diff final Platelet Estimate (Normal) Platelet Morphology (Normal) Ovalocytes (None) Stomatocytes (None) PT (9.8-11.6) sec INR Ratio APTT (23.4-31.7) sec Puncture Site Patient Temperature O2 Saturation (90-100) % ABG pH (7.380-7.420) ABG pCO2 (38-42) mmHg ABG pO2 (61-120) mmHg ABG HCO3 (22-26) mmol/L ABG O2 Content (12.0-20.0) Vol % ABG Base Excess (-2-2) mmol/L ABG Methemoglobin (0-2) % Sean Test Hemoglobin (12.0-16.0) G/DL Carboxyhemoglobin (0-4) % O2 Delivery Device Liter Flow L/M Inspired O2 % Critical Value Sodium 149 H 146 H (136-145) meq/L Potassium 4.1 D 3.8 (3.5-5.1) meq/L Chloride 117 H 112 H (98-107) meq/L Carbon Dioxide 26.1 23.8 (21.0-32.0) meq/L Anion Gap 6 10 (5-15) meq/L BUN 15 13 (7-18) mg/dL Creatinine 0.33 L 0.30 L (0.60-1.30) mg/dL Estimated GFR Greater than 89 Greater than 89 (>89) mL/min POC Glucose (68-110) mg/dl Random Glucose 118 H 111 H (74-106) mg/dL Lactic Acid (0.4-2.0) mmol/L Calcium 7.6 L 7.8 L (8.5-10.1) mg/dL Phosphorus 1.6 L 2.1 L (2.5-4.9) mg/dL Magnesium (1.5-2.5) mg/dL Total Bilirubin 0.3 0.3 (0.2-1.0) mg/dL AST 44 H 33 (15-37) U/L ALT 82 H 66 (12-78) U/L Alkaline Phosphatase 134 H 123 H (45-117) U/L Troponin I (0.02-0.05) ng/mL Total Protein 5.5 L 5.3 L (6.4-8.2) g/dL Albumin 2.0 L 2.0 L (3.4-5.0) g/dL Urine Color (Yellw/Straw) Urine Clarity (Clear) Urine pH (5.0-8.5) Ur Specific [place] (1.002-1.035) Urine Protein (Neg-Trace) mg/dL Urine Glucose (UA) (Negative) mg/dL Urine Ketones (Negative) mg/dL Urine Occult Blood (Negative) Urine Nitrate (Negative) Urine Bilirubin (Negative) Urine Urobilinogen (Less than 2) mg/dL Ur Leukocyte Esterase (Negative) Urine RBC (0-3) /hpf Urine WBC (0-5) /hpf Ur Squamous Epith Cells (0-5) /hpf Urine Bacteria (None) /hpf Urine Mucus (Occasional) /lpf Urine Yeast (None) /hpf Micro UA Comment Ur Microscopic Review Urine Culture Comments Nasal Screen MRSA (PCR) (Negative) Vancomycin Trough (5.0-10.0) mcg/mL 05/28/18 05/28/18 05/28/18 Range/Units 05:54 05:54 23:30 WBC 24.1 H (4.0-11.0) th/mm3 RBC 3.25 L (4.50-5.90) mil/mm3 Hgb 9.0 L (13.0-17.0) gm/dL Hct 28.5 L (39.0-51.0) % MCV 87.6 (80.0-100.0) fL MCH 27.8 (27.0-34.0) pg MCHC 31.7 L (32.0-36.0) % RDW 19.6 H (11.6-17.2) % Plt Count 517 H (150-450) th/mm3 MPV 7.9 (7.0-11.0) fL Prelim Diff (Auto) Neut % (Auto) 84.1 H (16.0-70.0) % Lymph % (Auto) 7.8 L (9.0-44.0) % [place] % (Auto) 7.2 (0.0-8.0) % Eos % (Auto) 0.2 (0.0-4.0) % Baso % (Auto) 0.7 (0.0-2.0) % Neut # (Auto) 20.2 H (1.8-7.7) th/mm3 Lymph # (Auto) 1.9 (1.0-4.8) th/mm3 [place] # (Auto) 1.7 H (0.0-0.9) th/mm3 Eos # (Auto) 0.0 (0.0-0.4) th/mm3 Baso # (Auto) 0.2 (0.0-0.2) th/mm3 WBC Differential . Seg Neuts % (Manual) (16-70) % Band Neuts % (Manual) (0-6) % Lymphocytes % (Manual) (9-44) % Monocytes % (Manual) (0-8) % Abs Neuts (Manual) (1.8-7.7) th/mm3 Differential Comment Auto diff final Platelet Estimate (Normal) Platelet Morphology (Normal) Ovalocytes (None) Stomatocytes (None) PT (9.8-11.6) sec INR Ratio APTT (23.4-31.7) sec Puncture Site Patient Temperature O2 Saturation (90-100) % ABG pH (7.380-7.420) ABG pCO2 (38-42) mmHg ABG pO2 (61-120) mmHg ABG HCO3 (22-26) mmol/L ABG O2 Content (12.0-20.0) Vol % ABG Base Excess (-2-2) mmol/L ABG Methemoglobin (0-2) % Sean Test Hemoglobin (12.0-16.0) G/DL Carboxyhemoglobin (0-4) % O2 Delivery Device Liter Flow L/M Inspired O2 % Critical Value Sodium 143 (136-145) meq/L Potassium 4.1 (3.5-5.1) meq/L Chloride 109 H (98-107) meq/L Carbon Dioxide 26.3 (21.0-32.0) meq/L Anion Gap 8 (5-15) meq/L BUN 14 (7-18) mg/dL Creatinine 0.21 L (0.60-1.30) mg/dL Estimated GFR Greater than 89 (>89) mL/min POC Glucose (68-110) mg/dl Random Glucose 105 (74-106) mg/dL Lactic Acid (0.4-2.0) mmol/L Calcium 7.9 L (8.5-10.1) mg/dL Phosphorus 2.8 (2.5-4.9) mg/dL Magnesium (1.5-2.5) mg/dL Total Bilirubin (0.2-1.0) mg/dL AST (15-37) U/L ALT (12-78) U/L Alkaline Phosphatase (45-117) U/L Troponin I (0.02-0.05) ng/mL Total Protein (6.4-8.2) g/dL Albumin (3.4-5.0) g/dL Urine Color (Yellw/Straw) Urine Clarity (Clear) Urine pH (5.0-8.5) Ur Specific [place] (1.002-1.035) Urine Protein (Neg-Trace) mg/dL Urine Glucose (UA) (Negative) mg/dL Urine Ketones (Negative) mg/dL Urine Occult Blood (Negative) Urine Nitrate (Negative) Urine Bilirubin (Negative) Urine Urobilinogen (Less than 2) mg/dL Ur Leukocyte Esterase (Negative) Urine RBC (0-3) /hpf Urine WBC (0-5) /hpf Ur Squamous Epith Cells (0-5) /hpf Urine Bacteria (None) /hpf Urine Mucus (Occasional) /lpf Urine Yeast (None) /hpf Micro UA Comment Ur Microscopic Review Urine Culture Comments Nasal Screen MRSA (PCR) (Negative) Vancomycin Trough 15.2 H (5.0-10.0) mcg/mL 05/29/18 Range/Units 06:28 WBC 23.4 H (4.0-11.0) th/mm3 RBC 2.90 L (4.50-5.90) mil/mm3 Hgb 8.0 L (13.0-17.0) gm/dL Hct 25.6 L (39.0-51.0) % MCV 88.1 (80.0-100.0) fL MCH 27.4 (27.0-34.0) pg MCHC 31.1 L (32.0-36.0) % RDW 19.6 H (11.6-17.2) % Plt Count 468 H (150-450) th/mm3 MPV 8.2 (7.0-11.0) fL Prelim Diff (Auto) Neut % (Auto) 84.2 H (16.0-70.0) % Lymph % (Auto) 6.8 L (9.0-44.0) % [place] % (Auto) 8.7 H (0.0-8.0) % Eos % (Auto) 0.1 (0.0-4.0) % Baso % (Auto) 0.2 (0.0-2.0) % Neut # (Auto) 19.7 H (1.8-7.7) th/mm3 Lymph # (Auto) 1.6 (1.0-4.8) th/mm3 [place] # (Auto) 2.0 H (0.0-0.9) th/mm3 Eos # (Auto) 0.0 (0.0-0.4) th/mm3 Baso # (Auto) 0.0 (0.0-0.2) th/mm3 WBC Differential . Seg Neuts % (Manual) (16-70) % Band Neuts % (Manual) (0-6) % Lymphocytes % (Manual) (9-44) % Monocytes % (Manual) (0-8) % Abs Neuts (Manual) (1.8-7.7) th/mm3 Differential Comment Auto diff final Platelet Estimate (Normal) Platelet Morphology (Normal) Ovalocytes (None) Stomatocytes (None) PT (9.8-11.6) sec INR Ratio APTT (23.4-31.7) sec Puncture Site Patient Temperature O2 Saturation (90-100) % ABG pH (7.380-7.420) ABG pCO2 (38-42) mmHg ABG pO2 (61-120) mmHg ABG HCO3 (22-26) mmol/L ABG O2 Content (12.0-20.0) Vol % ABG Base Excess (-2-2) mmol/L ABG Methemoglobin (0-2) % Sean Test Hemoglobin (12.0-16.0) G/DL Carboxyhemoglobin (0-4) % O2 Delivery Device Liter Flow L/M Inspired O2 % Critical Value Sodium (136-145) meq/L Potassium (3.5-5.1) meq/L Chloride (98-107) meq/L Carbon Dioxide (21.0-32.0) meq/L Anion Gap (5-15) meq/L BUN (7-18) mg/dL Creatinine (0.60-1.30) mg/dL Estimated GFR (>89) mL/min POC Glucose (68-110) mg/dl Random Glucose (74-106) mg/dL Lactic Acid (0.4-2.0) mmol/L Calcium (8.5-10.1) mg/dL Phosphorus (2.5-4.9) mg/dL Magnesium (1.5-2.5) mg/dL Total Bilirubin (0.2-1.0) mg/dL AST (15-37) U/L ALT (12-78) U/L Alkaline Phosphatase (45-117) U/L Troponin I (0.02-0.05) ng/mL Total Protein (6.4-8.2) g/dL Albumin (3.4-5.0) g/dL Urine Color (Yellw/Straw) Urine Clarity (Clear) Urine pH (5.0-8.5) Ur Specific [place] (1.002-1.035) Urine Protein (Neg-Trace) mg/dL Urine Glucose (UA) (Negative) mg/dL Urine Ketones (Negative) mg/dL Urine Occult Blood (Negative) Urine Nitrate (Negative) Urine Bilirubin (Negative) Urine Urobilinogen (Less than 2) mg/dL Ur Leukocyte Esterase (Negative) Urine RBC (0-3) /hpf Urine WBC (0-5) /hpf Ur Squamous Epith Cells (0-5) /hpf Urine Bacteria (None) /hpf Urine Mucus (Occasional) /lpf Urine Yeast (None) /hpf Micro UA Comment Ur Microscopic Review Urine Culture Comments Nasal Screen MRSA (PCR) (Negative) Vancomycin Trough (5.0-10.0) mcg/mL Imaging Data Radiologist's impression: Chest X-Ray 05/23/18 17:58 CONCLUSION: Lungs are clear. Chest CTA 05/23/18 18:20 CONCLUSION: 1. The study is negative for pulmonary embolism. 2. Right lower lobe consolidation. 3. Enlarged esophagus, similar in external contour compared to prior CT. Chest X-Ray 05/25/18 06:00 CONCLUSION: Dense consolidation in the right lower lobe. Left lungs clear. The right lower lobe consolidation is new from the previous study Chest X-Ray 05/26/18 06:00 CONCLUSION: Aeration right lung base. Improved infiltrate. Left lungs clear. The right lateral clavicle remains fractured. Discharge Plan Discharge Disposition Patient Disposition: 30 Still Patient Discharge Condition Condition: Fair Discharge Details Diagnosis: Acute respiratory distress syndrome (ARDS), Acute and chronic respiratory failure with hypoxia Physicians Team ED Provider: Deepak Leong Primary Care Provider: Pietro Reyna Attending Provider: Evita Dhillon Other Providers: Carolyne Jj ; Zo Ubrina ; Kamla Padilla ; [facility] Barto,Agency ; [facility],Agency ; [facility],Agency ; [facility],Agency Discharge Interventions Interventions: ED Discharge Assessment Last Done: 05/23/18 23:44 Vital Signs Last Done: 05/23/18 21:06 Status ED Status: Left Department Discharge Information Discharge Date/Time: 05/23/18 23:45
--- NOTE | 2018-05-23 20:59 | CT ---
EXAM DATE: 05/23/2018 8:52 PM EST AGE/SEX: 57 years / Male INDICATIONS: Respiratory distress. CLINICAL DATA: This is the patient's initial encounter. Patient reports that signs and symptoms have been present for 1 day and indicates a pain score of Nonresponsive. MEDICAL/SURGICAL HISTORY: Stroke. Anemia. None. RADIATION DOSE: 9.61 CTDI (mGy) COMPARISON: C, CTA PULMONARY W CONTRAST W 3D, 04/26/2018. . TECHNIQUE: Volumetric scanning was performed using a multi-row detector CT scanner during bolus infu thom of 50 ml Omnipaque 350 (iohexol) nonionic water-soluble contrast as a single exam dose. The ike a was post processed with a variety of visualization algorithms including full volume maximum intensi ty projection and sliding thin slab reformation. Using automated exposure control and adjustment of t he mA and/or kV according to patient size, radiation dose was kept as low as reasonably achievable to obtain optimal diagnostic quality images. DICOM format image data is available electronically for r eview and comparison. FINDINGS: The patient's body is curved to the right, creating left/right asymmetries. Pulmonary Arteries: No filling defects are seen in the pulmonary arteries out to the subsegmental ve ssels. The left and right pulmonary arteries are normal in diameter. Lung: Left lower lobe consolidation and volume loss. Effusion: None. Mediastinum: No evidence of mediastinal or hilar adenopathy. The esophagus is prominent and intralum inal contents are not well seen. Prior CT pulmonary angiogram in April 2018 had demonstrated diffus e esophageal dilation. Other: The axilla is unremarkable. CONCLUSION: 1. The study is negative for pulmonary embolism. 2. Right lower lobe consolidation. 3. Enlarged esophagus, similar in external contour compared to prior CT. Electronically signed by: Ezekiel Guillen MD 05/23/2018 8:58 PM EST
[2018-05-23] MEDS ORDERED: Acetaminophen 325 MG Tablet PO PRN (21:45)
[2018-05-23] MEDS ORDERED: Bisacodyl 10 MG Supp RECTAL PRN (21:45)
[2018-05-23] MEDS ORDERED: Vancomycin Consult Pharmacy OTHER PRN (21:49)
--- NOTE | 2018-05-23 22:03 | P.HPCC ---
History of Present Illness Primary Care Physician: Pietro Reyna MD History of Present Illness: 57-year-old male with a history of stroke, at the baseline mostly bedridden, presents to [place] for an evaluation of low saturations and decreased mental status of the past few days. His chest x-ray demonstrates clear lungs however he is actually in respiratory alkalosis with low PCO2 and low FiO2 even on nonrebreather which is required to maintain his sats greater than 90%. 2 L normal saline given in the emergency department. He is on the verge of being intubated and remains a full code according to his . Inpatient Certification: I certify that the inpatient services were ordered in accordance with Medicare regulations governing the order. This includes certification that hospital inpatient services are reasonable and necessary and in the case of services not specified as inpatient-only under 42 CFR 419.22(n), that they are appropriately provided as inpatient services in accordance to with the 2-midnight benchmark under 43 CFR 412.3(e) Estimated Total Length of Stay (Days): 5 Plans for Post Hospital Care: Not yet determined Review of Systems unobtainable due to mental condition PMFSH - History History Provided By: Tap Out Operator / EMT - Medical History Medical History: Medical History (Last Reviewed 05/09/18 @ 09:00 by Vanessa Wan) Hernia History of stroke No significant past surgical history Smoker Speech impairment - Tobacco History Second Hand Smoke Exposure: Yes Smoking Status: Unknown if ever smoked Tobacco Type: Cigarettes - Alcohol History How Often Do You Have a Drink Containing Alcohol: Unable to Obtain - Substance Use History Substance History: Unable to Obtain - Travel History Recent Travel in the [place] Within the Last 8 Weeks: No Recent Travel Out of the Country Within the Last 8 Weeks: No - Immunization History Tetanus Immunization: Unable to Assess Medications and Allergies Active Medications: Active Medications Acetaminophen (Tylenol) 650 mg PO Q6H PRN PRN Reason: PAIN 1-10 AND/OR FEVER >101F Al Hydroxide/Mg Hydroxide (Milk Of Magnesia Liq) 30 ml PO Q12H PRN PRN Reason: Mild Constipation Albuterol (Duoneb Neb (Prn)) 1 ampul NEB Q2HR NEB PRN PRN Reason: WHEEZING Albuterol (Duoneb Neb (Doretha)) 1 ampul NEB Q6HR NEB DOR[facility] Ascorbic Acid (Vitamin C) 500 mg G-TUBE BID DOR[facility] Aspirin (Aspirin Chew) 81 mg PO DAILY [facility] Atorvastatin Calcium (Lipitor) 40 mg PO DAILY [facility] Baclofen (Lioresal) 10 mg G-TUBE BID [facility] Bisacodyl (Dulcolax Supp) 10 mg RECTAL DAILY PRN PRN Reason: SEVERE CONSITIPATION Chlorhexidine Gluconate (Chlorhexidine 2% Cloth) 3 pack TOPICAL DAILY@0400 [facility] Stop: 05/29/18 03:59 Chlorhexidine Gluconate (Chlorhexidine 2% Cloth) 3 pack TOPICAL DAILY@0400 PRN PRN Reason: Extra cloth needed Stop: 05/29/18 03:59 Guaifenesin (Mucinex Er) 600 mg PO Q12H [facility] Heparin Sodium (Porcine) (Heparin Inj) 5,000 units SQ Q8H [facility] Sodium Chloride (Ns Inj) 1,000 mls @ 154 mls/hr IV.CONT .Q6H30M [facility] Cefepime HCl 2,000 mg/ Sodium (Chloride) 100 mls @ 200 mls/hr IV.SIG Q12H [facility] Lactulose (Lactulose Liq) 30 ml PO DAILY PRN PRN Reason: SEVERE CONSITIPATION Morphine Sulfate (Morphine Inj) 2 mg IV.PUSH Q2H PRN PRN Reason: PAIN SCALE 6 TO 10 Non-Formulary Medication (Arginine-Vitamin C-Vitamin E [Arginaid]) 1 packet FEED TUBE BID [facility] Non-Formulary Medication (Multivitamin With Minerals [Multivitamin With Minerals ]) 15 ml FEED TUBE DAILY [facility] Non-Formulary Medication (Zinc Sulfate [Zinc Sulfate]) 220 mg FEED TUBE DAILY [facility] Ondansetron HCl (Zofran Inj) 4 mg IV.PUSH Q6H PRN PRN Reason: NAUSEA OR VOMITING Pantoprazole Sodium (Protonix) 40 mg PO DAILY [facility] Pharmacy Profile Note (Vancomycin Consult Pharmacy) 1 each OTHER UNSCH PRN PRN Reason: Pharmacy to dose Senna/Docusate Sodium (Juli-Colace) 1 tab PO BID [facility] Sennosides (Senokot) 17.2 mg PO Q12H PRN PRN Reason: Moderate Constipation Sodium Chloride (Ns Flush) 2 ml IV.FLUSH BID [facility] Sodium Chloride (Ns Flush) 2 ml IV.FLUSH PRN PRN PRN Reason: FLUSH AFTER USING IV ACCESS Allergies Allergy/AdvReac Type Severity Reaction Status Date / Time No Known Allergies Allergy Verified 04/25/18 20:36 Home Medications Medication Instructions Recorded Confirmed Type arginine-vitamin C-vitamin E 1 packet FEEDING TUBE BID 05/23/18 05/23/18 History [Arginaid] ascorbic acid (vitamin C) [Vitamin 500 mg FEEDING TUBE BID 05/23/18 05/23/18 History C] baclofen 10 mg FEEDING TUBE BID 05/23/18 05/23/18 History guaifenesin [Mucinex] 600 mg PO Q12H 05/23/18 05/23/18 History levofloxacin [Levaquin] 500 mg FEEDING TUBE DAILY 05/23/18 05/23/18 History multivitamin with minerals 15 ml FEEDING TUBE DAILY 05/23/18 05/23/18 History zinc sulfate 220 mg FEEDING TUBE DAILY 05/23/18 05/23/18 History Results - Labs CBC & Chem 7: 05/24/18 04:19 05/24/18 04:19 Labs: Short CBC 05/23/18 Range/Units 18:12 WBC 26.6 H (4.0-11.0) th/mm3 Hgb 11.3 L (13.0-17.0) gm/dL Hct 36.5 L (39.0-51.0) % Plt Count 681 H D (150-450) th/mm3 BMP 05/23/18 18:12 Sodium 147 H Potassium 4.4 Chloride 112 H Carbon Dioxide 25.3 BUN 25 H Creatinine 0.42 L Calcium 8.9 Cardiac Enzymes 05/23/18 Range/Units 18:12 Troponin I 0.09 H (0.02-0.05) ng/mL Liver Function 05/23/18 Range/Units 18:12 Total Bilirubin 0.4 (0.2-1.0) mg/dL AST 85 H (15-37) U/L ALT 151 H (12-78) U/L Alkaline Phosphatase 183 H (45-117) U/L Albumin 2.5 L (3.4-5.0) g/dL Urine 05/23/18 Range/Units 18:20 Urine Color Yellow (Yellw/Straw) Urine Clarity Cloudy H (Clear) Urine pH 5.0 (5.0-8.5) Ur Specific [place] 1.024 (1.002-1.035) Urine Protein 30 H (Neg-Trace) mg/dL Urine Glucose (UA) Negative (Negative) mg/dL - Imaging Impressions Chest X-Ray 05/23/18 17:58 CONCLUSION: Lungs are clear. Chest CTA 05/23/18 18:20 CONCLUSION: 1. The study is negative for pulmonary embolism. 2. Right lower lobe consolidation. 3. Enlarged esophagus, similar in external contour compared to prior CT. Exam Vital signs: Vital Signs 05/23/18 17:56 05/23/18 17:58 05/23/18 18:25 Temperature 98.8 F Pulse Rate 136 H 130 H Respiratory Rate 37 H 33 H Blood Pressure 144/86 H 139/91 H Pulse Oximetry 91 L 91 L 96 05/23/18 19:18 05/23/18 21:06 Temperature Pulse Rate 133 H 118 H Respiratory Rate 18 20 Blood Pressure 134/99 H 122/79 Pulse Oximetry 94 L 98 Intake & Output 05/23/18 05/23/18 05/24/18 06:59 18:59 06:59 Intake Total 100 / 100 2250 / 2250 Balance 100 / 100 2250 / 2250 Weight 63.503 kg Intake: IV 100 / 100 2250 / 2250 Zosyn 4.5 GM Premix 4.5 gm In 100 / 100 100 ml @ 200 mls/hr IV.SIG ONCE ONE Rx#:[id number] NS Inj 1,000 ML @ 1000 mls/hr 1999 / 1999 IV.SIG BOLUS DORETHA Rx#:[id number] Vancomycin Inj 1,000 MG In NS 250 / 250 Inj 250 ML @ 250 mls/hr IV.SIG ONCE ONE Rx#:[id number] - Constitutional severe distress - Routine HEENT Exam Head: Present: normocephalic, atraumatic Eye: Present: PERRL, normal accommodation ENT: Present: mucous membranes dry - Routine Neck Exam Present: supple, full ROM. Absent: JVD, carotid bruit - Routine Respiratory Exam Present: accessory muscle use. Absent: rhonchi, stridor, wheezes, crackles - Routine Cardiovascular Exam Present: RRR, S1, S2 - Routine Abdominal Exam Present: soft, normoactive bowel sounds. Absent: tenderness, distended - Routine Extremities Exam Absent: cyanosis, clubbing, edema - Routine Skin Exam Present: intact. Absent: cyanosis, erythema - Routine Neurological Exam Present: altered mental status Septic Shock Reassessment Septic shock perfusion: reassessment completed Caprini VTE Risk Assessment Caprini VTE Risk Assessment: Moderate/High Risk (score >= 2) Caprini Risk Assessment Model: Point Value = 1 Point Value = 2 Point Value = 3 Point Value = 5 Age 41-60 Minor surgery BMI > 25 kg/m2 Swollen legs Varicose veins or History of unexplained or recurrent spontaneous Oral contraceptives or hormone replacement Sepsis (< 1 month) Serious lung disease, including pneumonia (< 1 month) Abnormal pulmonary function Acute myocardial infarction Congestive heart failure (< 1 month) History of inflammatory bowel disease Medical patient at bed rest Age 61-74 Arthroscopic surgery Major open surgery (> 45 min) Laparoscopic surgery (> 45 min) Malignancy Confined to bed (> 72 hours) Immobilizing plaster cast Central venous access Age >= 75 History of VTE Family history of VTE Factor V Leiden Prothrombin [id number] Lupus anticoagulant Anticardiolipin antibodies Elevated serum homocysteine Heparin-induced thrombocytopenia Other congenital or acquired thrombophilia Stroke (< 1 month) Elective arthroplasty Hip, pelvis, or leg fracture Acute spinal cord injury (< 1 month) Prophylaxis Regimen: Total Risk Factor Score Risk Level Prophylaxis Regimen 0-1 Low Early ambulation 2 Moderate Order ONE of the following: *Sequential Compression Device (SCD) *Heparin 5000 units SQ BID 3-4 Higher Order ONE of the following medications: *Heparin 5000 units SQ TID *Enoxaparin/Lovenox 40 mg SQ daily (WT < 150 kg, CrCl > 30 mL/min) *Enoxaparin/Lovenox 30 mg SQ daily (WT < 150 kg, CrCl > 10-29 mL/min) *Enoxaparin/Lovenox 30 mg SQ BID (WT < 150 kg, CrCl > 30 mL/min) AND/OR *Sequential Compression Device (SCD) 5 or more Highest Order ONE of the following medications: *Heparin 5000 units SQ TID (Preferred with Epidurals) *Enoxaparin/Lovenox 40 mg SQ daily (WT < 150 kg, CrCl > 30 mL/min) *Enoxaparin/Lovenox 30 mg SQ daily (WT < 150 kg, CrCl > 10-29 mL/min) *Enoxaparin/Lovenox 30 mg SQ BID (WT < 150 kg, CrCl > 30 mL/min) AND *Sequential Compression Device (SCD) Assessment and Plan - Assessment and Plan Plan: Respiratory failure -SIRS -Likely volume depletion -CT chest negative for PE -CXR clear -Hypoxemia from microcirculatory distress and shunting -Monitor for intubation -O2 via nasal cannula/facemask to keep sats above 92 -Broad-spectrum antibiotics -right lower lobe infiltrate on the CT Pneumonia -Per CT imaging study -Broad-spectrum antibiotics -Follow-up cultures and de-escalate Old CVA -Aspirin -Atorvastatin -Supportive care DVT GI prophylaxis -Teds SCDs -Pantoprazole -Subcu heparin 35 minutes of critical care
[2018-05-23] MEDS: Heparin - SQ 10,000 UNITS/ML Vial SQ SCH (22:25)
[2018-05-23] MEDS: Sod Chloride 0.9% Inj 1,000 ML IV.CONT SCH (23:12)
[2018-05-23] MEDS ORDERED: Vancomycin Inj 750 MG in Sodium Chlor 0.9% Inj 250 ML IV.SIG ONE (23:30)
[2018-05-24] MEDS: guaiFENesin 600 MG ER Tablet PO SCH ×3 (00:02→21:58)
[2018-05-24] MEDS: Sod Chloride 0.9% Inj 1,000 ML IV.SIG SCH ×2 (01:05→02:18)
[2018-05-24] MEDS ORDERED: Chlorhexidine Gluconate 2% 1 Pack (2 Cloths) TOPICAL PRN (04:00)
[2018-05-24 04:35] LABS: Hematocrit 29.3 % (39.0-51.0); Mean Corpuscular Hemoglobin 27.8 pg (27.0-34.0); Mean Corpuscular Volume 90.9 fL (80.0-100.0); Mean Platelet Volume 7.8 fL (7.0-11.0); Platelet Count 464 th/mm3 (150-450); Red Blood Count 3.23 mil/mm3 (4.50-5.90); Red Cell Distribution Width 20.4 % (11.6-17.2); White Blood Count 20.2 th/mm3 (4.0-11.0)
[2018-05-24 04:41] LABS: Activated Partial Thrombo Time 34.7 sec (23.4-31.7); INR 1.1 Ratio; Prothrombin Time 11.4 sec (9.8-11.6)
[2018-05-24 04:52] LABS: Mean Corpuscular HGB Conc 30.6 % (32.0-36.0)
[2018-05-24 05:01] LABS: Alanine Aminotransferase 89 U/L (12-78); Albumin 1.9 g/dL (3.4-5.0); Alkaline Phosphatase 123 U/L (45-117); Anion Gap 9 meq/L (5-15); Aspartate Aminotransferase 35 U/L (15-37); Blood Urea Nitrogen 19 mg/dL (7-18); Calcium 7.5 mg/dL (8.5-10.1); Carbon Dioxide 24.3 meq/L (21.0-32.0); Chloride 117 meq/L (98-107); Glomerular Filtration Rate Greater Than 89 mL/min (>89); Glucose,Random 119 mg/dL (74-106); Magnesium 1.9 mg/dL (1.5-2.5); Phosphorus 3.1 mg/dL (2.5-4.9); Potassium 3.4 meq/L (3.5-5.1); Sodium 150 meq/L (136-145); Total Protein 5.2 g/dL (6.4-8.2)
[2018-05-24] MEDS: Chlorhexidine Gluconate 2% 1 Pack (2 Cloths) TOPICAL SCH (05:15)
[2018-05-24] MEDS: Heparin - SQ 10,000 UNITS/ML Vial SQ SCH ×3 (06:32→21:59)
[2018-05-24 07:05] LABS: Lymphocytes 5 % (9-44)
[2018-05-24 07:06] LABS: Platelet Morphology Normal (Normal)
[2018-05-24] MEDS: Mupirocin 2% Nasal Oint Topical Syringe EACH NARE SCH ×2 (12:57→21:58)
[2018-05-24] MEDS: Senna/Docusate Sodium 8.6/50 MG Tablet PO SCH ×2 (12:58→21:58)
[2018-05-24] MEDS: Baclofen 10 MG Tablet G-TUBE SCH ×2 (12:58→21:58)
[2018-05-24] MEDS: Multivitamin/Minerals Therapeutic Tablet PO SCH (12:58)
[2018-05-24] MEDS: Ascorbic Acid 500 MG Tablet G-TUBE SCH ×2 (12:58→21:58)
[2018-05-24] MEDS: Vancomycin Inj 1,250 MG in Sodium Chlor 0.9% Inj 250 ML IV.SIG SCH (12:58)
--- NOTE | 2018-05-24 13:07 | P.PNCC ---
Subjective Subjective Remarks/Hospital Course: 57-year-old male with a history of stroke, at the baseline mostly bedridden, presents to [place] for an evaluation of low saturations and decreased mental status of the past few days. His chest x-ray demonstrates clear lungs however he is actually in respiratory alkalosis with low PCO2 and low FiO2 even on nonrebreather which is required to maintain his sats greater than 90%. 2 L normal saline given in the emergency department. He is on the verge of being intubated and remains a full code according to his . Subjective 05/25: Resting comfortably in bed in no acute distress. Nasopharyngeal tube placed. Suction copious amounts. Currently on nasal cannula 6 L. Appears more comfortable. Objective Vital Signs / I&O: Vital Signs 05/23/18 17:56 05/23/18 17:58 05/23/18 18:25 Temperature 98.8 F Pulse Rate 136 H 130 H Respiratory Rate 37 H 33 H Blood Pressure 144/86 H 139/91 H Pulse Oximetry 91 L 91 L 96 05/23/18 19:18 05/23/18 19:25 05/23/18 20:30 Temperature Pulse Rate 133 H 130 H Respiratory Rate 18 28 H Blood Pressure 134/99 H Pulse Oximetry 94 L 96 05/23/18 21:06 05/23/18 22:27 05/23/18 23:00 Temperature 97.4 F L Pulse Rate 118 H 115 H 114 H Respiratory Rate 20 22 26 H Blood Pressure 122/79 119/72 108/74 Pulse Oximetry 98 97 05/23/18 23:30 05/23/18 23:52 05/24/18 00:00 Temperature 97.5 F L Pulse Rate 115 H 113 H Respiratory Rate 31 H 25 H Blood Pressure 91/63 L Pulse Oximetry 100 91 L 100 05/24/18 00:16 05/24/18 00:30 05/24/18 00:46 Temperature Pulse Rate 107 H 104 H 104 H Respiratory Rate 57 H 28 H 23 Blood Pressure 86/60 L 96/62 L 105/65 Pulse Oximetry 100 100 100 05/24/18 01:00 05/24/18 01:15 05/24/18 01:31 Temperature Pulse Rate 103 H 102 H 102 H Respiratory Rate 26 H 27 H 26 H Blood Pressure 108/64 103/62 104/63 Pulse Oximetry 100 100 100 05/24/18 01:45 05/24/18 02:00 05/24/18 02:15 Temperature Pulse Rate 100 H 100 H 100 H Respiratory Rate 28 H 26 H 28 H Blood Pressure 102/64 113/57 L 112/59 L Pulse Oximetry 100 100 100 05/24/18 02:31 05/24/18 02:45 05/24/18 03:00 Temperature Pulse Rate 106 H 100 H 101 H Respiratory Rate 27 H 28 H 9 L Blood Pressure 114/63 120/56 L Pulse Oximetry 100 100 94 L 05/24/18 03:08 05/24/18 03:15 05/24/18 03:19 Temperature Pulse Rate 99 H 101 H 102 H Respiratory Rate 11 L 9 L 24 Blood Pressure 92/53 L 86/50 L Pulse Oximetry 100 98 05/24/18 03:27 05/24/18 03:30 05/24/18 03:45 Temperature Pulse Rate 102 H 104 H 104 H Respiratory Rate 23 29 H 29 H Blood Pressure 81/51 L 124/71 111/68 Pulse Oximetry 96 96 97 05/24/18 04:00 05/24/18 04:15 05/24/18 04:30 Temperature Pulse Rate 109 H 106 H 104 H Respiratory Rate 26 H 26 H 26 H Blood Pressure 99/66 L 97/67 L 99/67 L Pulse Oximetry 97 91 L 95 05/24/18 04:45 05/24/18 05:00 05/24/18 05:03 Temperature 98.7 F Pulse Rate 101 H 101 H 101 H Respiratory Rate 26 H 20 24 Blood Pressure 100/66 113/66 Pulse Oximetry 97 100 100 05/24/18 05:15 05/24/18 05:30 05/24/18 05:45 Temperature Pulse Rate 98 H 95 H 93 H Respiratory Rate 24 23 22 Blood Pressure 102/62 104/66 103/65 Pulse Oximetry 99 98 98 05/24/18 06:00 05/24/18 06:15 05/24/18 08:14 Temperature Pulse Rate 93 H 93 H 108 H Respiratory Rate 22 21 18 Blood Pressure 110/66 117/70 Pulse Oximetry 99 100 05/24/18 08:16 Temperature Pulse Rate Respiratory Rate Blood Pressure Pulse Oximetry 96 Intake & Output 05/23/18 05/24/18 05/24/18 18:59 06:59 18:59 Intake Total 100 / 100 5307.5 / 5307.5 Output Total 880 / 880 Balance 100 / 100 4427.5 / 4427.5 Weight 63.503 kg Intake: IV 100 / 100 5307.5 / 5307.5 NS Inj 1,000 ML @ 154 mls/hr IV 700 / 700 .CONT .Q6H30M [facility] Rx#:[id number] Maxipime Inj 2,000 MG In NS Inj 100 / 100 100 ML @ 200 mls/hr IV.SIG Q12H [facility] Rx#:[id number] Zosyn 4.5 GM Premix 4.5 gm In 100 / 100 100 ml @ 200 mls/hr IV.SIG ONCE ONE Rx#:[id number] NS Inj 1,000 ML @ 2000 mls/hr 4000 / 4000 IV.SIG Q30M [facility] Rx#:[id number] Vancomycin Inj 1,000 MG In NS 250 / 250 Inj 250 ML @ 250 mls/hr IV.SIG ONCE ONE Rx#:[id number] Vancomycin Inj 750 MG In NS Inj 257.5 / 257.5 250 ML @ 250 mls/hr IV.SIG ONCE ONE Rx#:[id number] Output: Urine Amount (Catheter) 880 / 880 Indwelling Urethral Catheter 880 / 880 Other: Date of Last Bowel Movement 05/24/18 Result Diagrams: 05/24/18 04:19 05/24/18 04:19 Other Results: Microbiology 05/23/18 18:25 Blood - Peripheral Aerobic Blood Culture - Preliminary No growth in 1 day 05/23/18 18:25 Blood - Peripheral Anaerobic Blood Culture - Preliminary No growth in 1 day 05/23/18 18:12 Blood - Peripheral Aerobic Blood Culture - Preliminary No growth in 1 day 05/23/18 18:12 Blood - Peripheral Anaerobic Blood Culture - Preliminary No growth in 1 day Imaging: Chest X-Ray 05/23/18 17:58 CONCLUSION: Lungs are clear. Chest CTA 05/23/18 18:20 CONCLUSION: 1. The study is negative for pulmonary embolism. 2. Right lower lobe consolidation. 3. Enlarged esophagus, similar in external contour compared to prior CT. Objective Remarks: GENERAL: 57-year-old male resting in bed in no acute distress SKIN: Warm and dry. Copious amounts of abrasions involving bilateral upper lower extremity's. HEAD: Atraumatic. Normocephalic. EYES: Pupils equal and round. No scleral icterus. No injection or drainage. ENT: No nasal bleeding or discharge. Mucous membranes pink and moist. Nasopharyngeal tube in the right nares NECK: Trachea midline. No JVD. CARDIOVASCULAR: Regular rate and rhythm. S1, S2 predose 4 RESPIRATORY: Right lower lobe coarse rhonchorous breath sounds/transmitted upper airway sounds. GASTROINTESTINAL: Abdomen soft, non-tender, nondistended. Hepatic and splenic margins not palpable. MUSCULOSKELETAL: Contracted bilateral upper lower extremity's. Deep tissue injury to sacral and coccyx regions NEUROLOGICAL: Arousable appears did not head. Assessment and Plan - Assessment and Plan Plan: Neuro/Psych: History of debilitating CVA Continue aspirin 81 mg daily. Baclofen 10 mg p.o. twice daily Physical therapy evaluate and treat CV: Essential hypertension Hyperlipidemia Currently not requiring vasopressors and/or antihypertensives continue atorvastatin 40 mg p.o. daily. Resp: Acute respiratory insufficiency Nasal cannula to maintain saturations greater than equal to 92% Incentive spirometry while awake PEP therapy every [address] pulmonary angiogram revealed no signs of central pulmonary embolism. Right lower lobe infiltrate likely secondary to aspiration. Chest x-ray in a.m. 05/25 GI: Hypoalbuminemia Elevated transaminases Start tube feeding pantoprazole for GI prophylaxis Docusate sodium/senna 1 tablet twice daily for bowel regimen : Catheterization as needed Endo: Sliding scale insulin if indicated to maintain euglycemia Renal: Creatinine currently within normal limit Accurate I's and O's Monitor urine output Heme: Leukocytosis Normocytic normochromic anemia Thrombocytosis Monitor CBC daily. Follow trends per No indication for transfusion of blood products at this time. ID: Likely aspiration pneumonia Currently on Vancomycin, cefepime and metronidazole Received piperacillin/tazobactam in the ED. Blood cultures x2, UA pending FEN: Hypopotassemia Hyponatremia Replete potassium. Recheck BMP in a.m. MSK: Sacral deep tissue injury Contractions Wound care evaluate and treat PT evaluate and treat Access -Utilize peripheral IV. Central line if indicated Prophylaxis -GI -pantoprazole - -DVT SCD/heparin subcutaneous Level 2 follow-up. Stable from critical care medicine standpoint. Assign care to hospitalist in a.m. 05/25.
--- NOTE | 2018-05-24 15:55 | ECG ---
Date Performed: 05/23/2018 Time Performed: 17:57:33 PTAGE: 57 years EKG: SINUS TACHYCARDIA WITH OCCASIONAL SUPRAVENTRICULAR PREMATURE COMPLEXES LEFT VENTRICULAR HYP ERTROPHY AND ST-T CHANGE ABNORMAL ECG INTERPRETATION BASED ON A DEFAULT AGE OF 40 YEARS Anteriro and Lateral ST-T wave changes consistent with myocardial ischemia PREVIOUS TRACING : 02/26/2018 14.43 Compared to previous tracing, the sinus tachycardia a nd the marked ischemic-appearing ST-T wave changes are new. Clinical correlation is recommended to ex clude acute coronary syndrome and left anterior descending ischemia. DOCTOR: Kaylan Arias Interpretating Date/Time 05/24/2018 15:55:07
--- NOTE | 2018-05-24 16:04 | MB ---
cc: Carolyne Jj MD DATE: 05/24/2018 DATE OF CONSULTATION: 05/24/2018. REFERRING PHYSICIAN: The patient is being seen at the request of Dr. Tab Garcia. REASON FOR CONSULTATION: Decubitus ulcers of the sacral area and right hip. HISTORY OF PRESENT ILLNESS: The patient is a 57-year-old male who was admitted 05/23/2018. REASON FOR ADMISSION: Shortness of breath and dyspnea. The patient has a history of stroke. He is mostly bedridden. He was admitted for low oxygen saturations. It was noted on admission that he had some pressure sores on his sacral area and right hip. Consultation is requested regarding evaluation and treatment of these sores. PAST MEDICAL HISTORY AND REVIEW OF SYSTEMS: Not able to be obtained. The patient has a history of hernia, stroke. PAST SURGICAL HISTORY: No significant past medical history. 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 MEDICATIONS: Listed on the chart. ALLERGIES: HE HAS NO KNOWN FOOD OR DRUG ALLERGIES. PHYSICAL EXAMINATION: GENERAL: The patient is lying in bed. His eyes are open and he does appear to be understanding my words. He is not responding. VITAL SIGNS: Temperature is 99, pulse is 108, respirations are 18, blood pressure is 117/70, oxygen is 96% on 6 liters via nasal cannula. HEENT: His extraocular muscles appear to be intact. His pupils are equal, round and reactive to light. NECK: Supple. LUNGS: Clear. HEART: Has a regular rate and rhythm. EXTREMITIES: Examination of his sacral area reveals a stage I pressure sores. There is excoriation and some exposure of the dermis. There is no evidence of cellulitis. Peripherally the area measures total approximately 8 cm x 3 cm in greatest dimension in its body. Examination of the right hip does reveal some minor excoriation and some redness consistent with a stage I pressure sore. IMPRESSION: The patient has stage I and stage II pressure sores of the sacral area in the right hip. These were present on admission. PLAN: I would apply povidone iodine ointment directly to the sacral area as well as right hip area and cover with Mepilex or a dry dressing. He should also be on the appropriate bed with appropriate turning every 2 hours as per protocol. I doubt that the patient will need any type of surgery. These should heal on their own with adequate amount of nutrition and attention to the pressure. MD ROZ Ramachandran/mendez , 03:28 PM , 03:38 PM
[2018-05-24] MEDS: metroNIDAZOLE 500 MG Tablet PO SCH (18:00)
--- NOTE | 2018-05-24 18:23 | P.PNWCN ---
Wound Care Nurse Consult Additional information: Attempted to see patient on [facility], Per RN Josseline, Doctor Jj from Plastics saw patient for wounds on sacrum and L hip and has given wound care orders. Please defer to plastics for wound deterioration or wound care orders. Wound care is signing off.
[2018-05-24] MEDS: Sod Chloride 0.9% Inj 1,000 ML IV.CONT SCH (22:56)
[2018-05-25] MEDS: Vancomycin Inj 1,250 MG in Sodium Chlor 0.9% Inj 250 ML IV.SIG SCH ×2 (00:25→13:29)
[2018-05-25] MEDS: metroNIDAZOLE 500 MG Tablet PO SCH ×4 (00:26→19:01)
--- NOTE | 2018-05-25 04:44 | XR ---
EXAM DATE: 05/25/2018 4:30 AM EST AGE/SEX: 57 years / Male INDICATIONS: Shortness of breath, possible pulmonary disease. CLINICAL DATA: This is the patient's subsequent encounter. Patient reports that signs and symptoms h ave been present for 3 days and indicates a pain score of Nonresponsive. MEDICAL/SURGICAL HISTORY: Gastroesophageal reflux disease. Stroke. Cerebrovascular disease. N one. COMPARISON: [facility] [place], CHEST 1V SINGLE AP, 05/23/2018. . FINDINGS: Single view the chest some trachea. There is some new consolidation in the right lower lobe. Heart an d mediastinum are unremarkable. Left lung is clear. Right lung apex is clear. There is a right latera l clavicle fracture CONCLUSION: Dense consolidation in the right lower lobe. Left lungs clear. The right lower lobe consolidation is new from the previous study Electronically signed by: Teo Toro MD 05/25/2018 4:42 AM EST
[2018-05-25] MEDS: Sod Chloride 0.9% Inj 1,000 ML IV.CONT SCH ×2 (05:47→11:35)
[2018-05-25] MEDS: Chlorhexidine Gluconate 2% 1 Pack (2 Cloths) TOPICAL SCH (05:49)
[2018-05-25] MEDS: Heparin - SQ 10,000 UNITS/ML Vial SQ SCH ×3 (05:49→21:34)
[2018-05-25 06:14] LABS: Baso # (Auto) 0.1 th/mm3 (0.0-0.2); Baso % (Auto) 0.2 % (0.0-2.0); Eos % (Auto) 0.1 % (0.0-4.0); Hematocrit 28.1 % (39.0-51.0); Hemoglobin 7.9 gm/dL (13.0-17.0); Lymph # (Auto) 1.1 th/mm3 (1.0-4.8); Lymph % (Auto) 4.9 % (9.0-44.0); Mean Corpuscular Hemoglobin 26.6 pg (27.0-34.0); Mean Corpuscular Volume 94.1 fL (80.0-100.0); Mean Platelet Volume 7.8 fL (7.0-11.0); Mono # (Auto) 1.8 th/mm3 (0.0-0.9); Mono % (Auto) 7.7 % (0.0-8.0); Neut # (Auto) 19.9 th/mm3 (1.8-7.7); Neut % (Auto) 87.1 % (16.0-70.0); Platelet Count 467 th/mm3 (150-450); Red Blood Count 2.98 mil/mm3 (4.50-5.90); Red Cell Distribution Width 20.5 % (11.6-17.2); White Blood Count 22.9 th/mm3 (4.0-11.0)
[2018-05-25 06:15] LABS: Mean Corpuscular HGB Conc 28.3 % (32.0-36.0)
[2018-05-25 06:18] LABS: Alanine Aminotransferase 58 U/L (12-78); Albumin 1.4 g/dL (3.4-5.0); Anion Gap 7 meq/L (5-15); Aspartate Aminotransferase 30 U/L (15-37); Blood Urea Nitrogen 24 mg/dL (7-18); Calcium 7.6 mg/dL (8.5-10.1); Carbon Dioxide 19.3 meq/L (21.0-32.0); Chloride 121 meq/L (98-107); Glomerular Filtration Rate Greater Than 89 mL/min (>89); Glucose,Random 94 mg/dL (74-106); Phosphorus 2.5 mg/dL (2.5-4.9); Potassium 3.4 meq/L (3.5-5.1); Sodium 147 meq/L (136-145)
[2018-05-25 06:20] LABS: Alkaline Phosphatase 106 U/L (45-117); Total Protein 5.2 g/dL (6.4-8.2)
[2018-05-25 07:36] LABS: ABG Base Excess -0.6 mmol/L (-2-2); ABG PCO2 32 mmHg (38-42); ABG PO2 249 mmHG (61-120)
[2018-05-25] MEDS: Baclofen 10 MG Tablet G-TUBE SCH ×2 (08:39→20:44)
[2018-05-25] MEDS: Ascorbic Acid 500 MG Tablet G-TUBE SCH ×2 (08:40→20:44)
[2018-05-25] MEDS: Multivitamin/Minerals Therapeutic Tablet PO SCH (08:40)
[2018-05-25] MEDS: Mupirocin 2% Nasal Oint Topical Syringe EACH NARE SCH ×2 (08:41→20:44)
[2018-05-25] MEDS: Senna/Docusate Sodium 8.6/50 MG Tablet PO SCH ×2 (08:47→20:44)
[2018-05-25] MEDS: guaiFENesin 600 MG ER Tablet PO SCH ×2 (13:28→21:34)
[2018-05-25] MEDS: Pantoprazole Inj 40 MG Vial IV.PUSH SCH (13:28)
[2018-05-25] MEDS ORDERED: Lidocaine 4% Top Soln 50 ML Bottle TOPICAL ONE (15:00)
[2018-05-25] MEDS ORDERED: Potassium Chloride 25 MEQ Effervescent Tablet PO ONE (16:41)
--- NOTE | 2018-05-25 16:48 | P.PNCC ---
Subjective Subjective Remarks/Hospital Course: 57-year-old male with a history of stroke, at the baseline mostly bedridden, presents to [place] for an evaluation of low saturations and decreased mental status of the past few days. His chest x-ray demonstrates clear lungs however he is actually in respiratory alkalosis with low PCO2 and low FiO2 even on nonrebreather which is required to maintain his sats greater than 90%. 2 L normal saline given in the emergency department. He is on the verge of being intubated and remains a full code according to his . 05/24: Resting comfortably in bed in no acute distress. Nasopharyngeal tube placed. Suction copious amounts. Currently on nasal cannula 6 L. Appears more comfortable. Subjective 05/25: Intermittently on 10% liters of mask due to agitation. Intermittently nasopharyngeal suction. Appears comfortable. Objective Vital Signs / I&O: Vital Signs 05/24/18 17:00 05/24/18 18:00 05/24/18 19:00 Temperature Pulse Rate 109 H 100 H 97 H Respiratory Rate 22 17 16 Blood Pressure 108/74 110/69 115/66 Pulse Oximetry 83 L 97 90 L 05/24/18 19:32 05/24/18 20:00 05/24/18 23:01 Temperature Pulse Rate 96 H 107 H 57 L Respiratory Rate 16 16 Blood Pressure Pulse Oximetry 95 94 L 05/25/18 00:00 05/25/18 03:02 05/25/18 04:00 Temperature 98.6 F 98.6 F Pulse Rate 103 H 105 H 106 H Respiratory Rate 18 16 29 H Blood Pressure 107/70 139/81 Pulse Oximetry 97 98 05/25/18 06:40 05/25/18 07:00 05/25/18 07:53 Temperature Pulse Rate 91 H 92 H Respiratory Rate 21 16 Blood Pressure 115/73 Pulse Oximetry 100 100 100 05/25/18 08:00 05/25/18 09:00 05/25/18 10:00 Temperature 99.2 F Pulse Rate 99 H 114 H 105 H Respiratory Rate 23 25 H 24 Blood Pressure 116/68 117/71 105/63 Pulse Oximetry 94 L 86 L 99 05/25/18 11:00 05/25/18 11:13 05/25/18 12:00 Temperature Pulse Rate 113 H 114 H 124 H Respiratory Rate 26 H 16 27 H Blood Pressure 89/52 L 119/62 Pulse Oximetry 88 L 99 05/25/18 13:00 05/25/18 14:00 05/25/18 14:54 Temperature Pulse Rate 128 H 111 H 104 H Respiratory Rate 28 H 24 20 Blood Pressure 132/60 117/53 L Pulse Oximetry 89 L 99 05/25/18 15:00 05/25/18 15:01 Temperature Pulse Rate 108 H 108 H Respiratory Rate 23 25 H Blood Pressure 119/54 L Pulse Oximetry 95 99 Intake & Output 05/24/18 05/25/18 05/25/18 18:59 06:59 18:59 Intake Total 154 / 154 1625.0 / 1625.0 100 / 100 Output Total 1680 / 1680 Balance -1526 / -1526 1625.0 / 1625.0 100 / 100 Intake: IV 1625.0 / 1625.0 100 / 100 NS Inj 1,000 ML @ 154 mls/hr IV 1000 / 1000 .CONT .Q6H30M [facility] Rx#:[id number] Maxipime Inj 2,000 MG In NS Inj 100 / 100 100 / 100 100 ML @ 200 mls/hr IV.SIG Q12H [facility] Rx#:[id number] Vancomycin Inj 1,250 MG In NS 525.0 / 525.0 Inj 250 ML @ 250 mls/hr IV.SIG Q12H [facility] Rx#:[id number] Oral 0 / 0 Other 154 / 154 Output: Urine 1680 / 1680 Other: Other Intake Source Saline Solution Date of Last Bowel Movement 05/24/18 05/24/18 05/25/18 # Bowel Movements 1 Result Diagrams: 05/25/18 05:44 05/25/18 05:44 Other Results: Microbiology 05/24/18 18:45 Sputum - Nasal Tracheal Aspirate Gram Stain - Final 05/24/18 18:45 Sputum - Nasal Tracheal Aspirate Sputum Culture - Preliminary Heavy growth normal respiratory hieu at 24 hours 05/23/18 18:25 Blood - Peripheral Aerobic Blood Culture - Preliminary No growth in 2 days 05/23/18 18:25 Blood - Peripheral Anaerobic Blood Culture - Preliminary No growth in 2 days 05/23/18 18:12 Blood - Peripheral Aerobic Blood Culture - Preliminary No growth in 2 days 05/23/18 18:12 Blood - Peripheral Anaerobic Blood Culture - Preliminary No growth in 2 days 05/23/18 18:20 Catheterized Urine Urine Culture - Final Ivett albicans 05/24/18 18:45 Nasal Wash Influenza Types A,B Antigen - Final Negative for FLU A and B antigen Infection due to influenza A or B cannot be ruled out since the antigen present in the sample may be below the detection limit of the test. Imaging: Chest X-Ray 05/23/18 17:58 CONCLUSION: Lungs are clear. Chest CTA 05/23/18 18:20 CONCLUSION: 1. The study is negative for pulmonary embolism. 2. Right lower lobe consolidation. 3. Enlarged esophagus, similar in external contour compared to prior CT. Chest X-Ray 05/25/18 06:00 CONCLUSION: Dense consolidation in the right lower lobe. Left lungs clear. The right lower lobe consolidation is new from the previous study Objective Remarks: GENERAL: 57-year-old male resting in bed in no acute distress SKIN: Warm and dry. Copious amounts of abrasions involving bilateral upper lower extremity's. HEAD: Atraumatic. Normocephalic. EYES: Pupils equal and round. No scleral icterus. No injection or drainage. ENT: No nasal bleeding or discharge. Mucous membranes pink and moist. Nasopharyngeal tube in the right nares NECK: Trachea midline. No JVD. CARDIOVASCULAR: Regular rate and rhythm. S1, S2 predose 4 RESPIRATORY: Right lower lobe coarse rhonchorous breath sounds/transmitted upper airway sounds. GASTROINTESTINAL: Abdomen soft, non-tender, nondistended. Hepatic and splenic margins not palpable. MUSCULOSKELETAL: Contracted bilateral upper lower extremity's. Deep tissue injury to sacral and coccyx/right hip regions NEUROLOGICAL: Arousable appears did not head. Assessment and Plan - Assessment and Plan Plan: Neuro/Psych: History of debilitating CVA Continue aspirin 81 mg daily. Baclofen 10 mg p.o. twice daily Physical therapy evaluate and treat CV: Essential hypertension Hyperlipidemia Currently not requiring vasopressors and/or antihypertensives continue atorvastatin 40 mg p.o. daily. Resp: Acute respiratory insufficiency Nasal cannula to maintain saturations greater than equal to 92% Incentive spirometry while awake PEP therapy every [address] pulmonary angiogram revealed no signs of central pulmonary embolism. Right lower lobe infiltrate likely secondary to aspiration. Chest x-ray in a.m. 05/25 revealed right lower lobe infiltrate GI: Hypoalbuminemia Elevated transaminases Start tube feeding with vital 1.5 goal 55 cc an hour pantoprazole for GI prophylaxis Docusate sodium/senna 1 tablet twice daily for bowel regimen : Catheterization as needed Endo: Sliding scale insulin if indicated to maintain euglycemia Renal: Creatinine currently within normal limit Accurate I's and O's Monitor urine output Heme: Leukocytosis Normocytic normochromic anemia Thrombocytosis Monitor CBC daily. Follow trends per No indication for transfusion of blood products at this time. ID: Likely aspiration pneumonia Currently on Vancomycin, cefepime and metronidazole Received piperacillin/tazobactam in the ED. Blood cultures x2, UA p no growth FEN: Hypopotassemia Hypernatremia Replete potassium. Recheck BMP in a.m. Free water 100 cc every 6 hours. MSK: Sacral deep tissue injury Contractions Wound care evaluate and treat PT evaluate and treat Access -Utilize peripheral IV. Central line if indicated Prophylaxis -GI -pantoprazole - -DVT SCD/heparin subcutaneous Level 2 follow-up. Stable from critical care medicine standpoint. Assign care to hospitalist in a.m. 05/26.
[2018-05-25] MEDS ORDERED: Pharmacy Ordered Lab Info OTHER ONE (23:45)
[2018-05-26] MEDS: Vancomycin Inj 1,250 MG in Sodium Chlor 0.9% Inj 250 ML IV.SIG SCH ×3 (00:03→23:56)
[2018-05-26] MEDS: metroNIDAZOLE 500 MG Tablet PO SCH ×5 (00:03→23:57)
[2018-05-26 00:19] LABS: Alanine Aminotransferase 82 U/L (12-78); Albumin 1.9 g/dL (3.4-5.0); Anion Gap 6 meq/L (5-15); Aspartate Aminotransferase 50 U/L (15-37); Blood Urea Nitrogen 19 mg/dL (7-18); Calcium 7.6 mg/dL (8.5-10.1); Carbon Dioxide 27.3 meq/L (21.0-32.0); Chloride 121 meq/L (98-107); Glomerular Filtration Rate Greater Than 89 mL/min (>89); Glucose,Random 115 mg/dL (74-106); Magnesium 2.2 mg/dL (1.5-2.5); Potassium 3.1 meq/L (3.5-5.1); Sodium 154 meq/L (136-145)
[2018-05-26 00:21] LABS: Alkaline Phosphatase 122 U/L (45-117); Phosphorus 1.6 mg/dL (2.5-4.9); Vancomycin,Trough 18.3 mcg/mL (5.0-10.0)
[2018-05-26] MEDS ORDERED: Potassium Chlor 40 mEq Premix 40 MEQ/100 ML PIGGYBACK IV.SIG SCH (01:00)
[2018-05-26] MEDS: Potassium Chlor 20 mEq Premix 20 MEQ/100 ML PIGGYBACK IV.SIG SCH ×4 (01:03→07:23)
[2018-05-26] MEDS: Chlorhexidine Gluconate 2% 1 Pack (2 Cloths) TOPICAL SCH (03:01)
--- NOTE | 2018-05-26 03:53 | XR ---
EXAM DATE: 05/26/2018 3:46 AM EST AGE/SEX: 57 years / Male INDICATIONS: Shortness of breath, possible pulmonary disease. CLINICAL DATA: This is the patient's subsequent encounter. Patient reports that signs and symptoms h ave been present for 4 - 6 days and indicates a pain score of 0/10. MEDICAL/SURGICAL HISTORY: Gastroesophageal reflux disease. Stroke. Cerebrovascular disease. N one. COMPARISON: [facility] [place], CHEST 1V SINGLE AP, 05/25/2018. . FINDINGS: Single view the chest symptoms or there is an evolving infiltrate in the right lung base. There certa inly better aeration at the right lung base. Left lung remains clear. Heart and mediastinum are unrem arkable. CONCLUSION: Aeration right lung base. Improved infiltrate. Left lungs clear. The right lateral clavicle remains f ractured. Electronically signed by: Teo Toro MD 05/26/2018 3:52 AM EST
[2018-05-26] MEDS: Heparin - SQ 10,000 UNITS/ML Vial SQ SCH ×3 (05:22→21:00)
[2018-05-26 07:46] LABS: Baso # (Auto) 0.1 th/mm3 (0.0-0.2); Baso % (Auto) 0.5 % (0.0-2.0); Eos % (Auto) 0.1 % (0.0-4.0); Hematocrit 28.7 % (39.0-51.0); Hemoglobin 8.7 gm/dL (13.0-17.0); Lymph # (Auto) 1.3 th/mm3 (1.0-4.8); Lymph % (Auto) 5.9 % (9.0-44.0); Mean Corpuscular Hemoglobin 27.4 pg (27.0-34.0); Mean Platelet Volume 8.3 fL (7.0-11.0); Mono # (Auto) 1.5 th/mm3 (0.0-0.9); Mono % (Auto) 6.7 % (0.0-8.0); Neut # (Auto) 19.7 th/mm3 (1.8-7.7); Neut % (Auto) 86.8 % (16.0-70.0); Platelet Count 535 th/mm3 (150-450); Red Blood Count 3.19 mil/mm3 (4.50-5.90); Red Cell Distribution Width 19.5 % (11.6-17.2); White Blood Count 22.6 th/mm3 (4.0-11.0)
[2018-05-26 07:52] LABS: Mean Corpuscular HGB Conc 30.4 % (32.0-36.0)
--- NOTE | 2018-05-26 08:17 | P.PNIM ---
Subjective Interval history: f/u; pneumonia in no acute distress. no fever. HR trend noted. Physical Exam Vital signs: Vital Signs 05/25/18 09:00 05/25/18 10:00 05/25/18 11:00 Temperature Pulse Rate 114 H 105 H 113 H Respiratory Rate 25 H 24 26 H Blood Pressure 117/71 105/63 89/52 L Pulse Oximetry 86 L 99 88 L 05/25/18 11:13 05/25/18 12:00 05/25/18 13:00 Temperature Pulse Rate 114 H 124 H 128 H Respiratory Rate 16 27 H 28 H Blood Pressure 119/62 132/60 Pulse Oximetry 99 89 L 05/25/18 14:00 05/25/18 14:54 05/25/18 15:00 Temperature Pulse Rate 111 H 104 H 108 H Respiratory Rate 24 20 23 Blood Pressure 117/53 L Pulse Oximetry 99 95 05/25/18 15:01 05/25/18 16:00 05/25/18 17:00 Temperature Pulse Rate 108 H 114 H 113 H Respiratory Rate 25 H 22 24 Blood Pressure 119/54 L 101/50 L 103/69 Pulse Oximetry 99 90 L 96 05/25/18 18:00 05/25/18 19:00 05/25/18 19:50 Temperature Pulse Rate 109 H 108 H 109 H Respiratory Rate 27 H 24 26 H Blood Pressure 127/66 134/61 Pulse Oximetry 92 L 94 L 92 L 05/25/18 20:00 05/26/18 00:00 05/26/18 00:15 Temperature 98.8 F Pulse Rate 109 H 109 H 108 H Respiratory Rate 28 H 23 26 H Blood Pressure 105/57 L 111/70 Pulse Oximetry 95 94 L 05/26/18 04:00 05/26/18 04:04 05/26/18 07:29 Temperature Pulse Rate 105 H 109 H 114 H Respiratory Rate 19 24 20 Blood Pressure 117/79 Pulse Oximetry 96 96 Intake & Output 05/25/18 05/26/18 05/26/18 18:59 06:59 18:59 Intake Total 560 / 560 825.0 / 825.0 100 / 100 Output Total 900 / 900 550 / 550 Balance -340 / -340 275.0 / 275.0 100 / 100 Intake: IV 200 / 200 825.0 / 825.0 100 / 100 Maxipime Inj 2,000 MG In NS Inj 200 / 200 100 / 100 100 ML @ 200 mls/hr IV.SIG Q12H [facility] Rx#:[id number] KCl 20 mEq Premix Inj 20 meq In 200 / 200 100 / 100 100 ml @ 50 mls/hr IV.SIG Q2H [facility] Rx#:[id number] Vancomycin Inj 1,250 MG In NS 525.0 / 525.0 Inj 250 ML @ 250 mls/hr IV.SIG Q12H [facility] Rx#:[id number] Oral 0 / 0 Tube Feeding 360 / 360 Output: Urine Amount (Catheter) 900 / 900 550 / 550 Straight 900 / 900 550 / 550 Other: Date of Last Bowel Movement 05/25/18 05/25/18 # Bowel Movements 0 - Constitutional mild distress - Routine Respiratory Exam Present: diminished air movement (in bases.) - Routine Cardiovascular Exam Present: tachycardia - Routine Abdominal Exam Present: soft Comments: PEG in place. - Routine Extremities Exam Comments: no pedal edema. - Routine Neurological Exam Present: alert - Urinary Catheter Management Indwelling Urethral Catheter Cath placed during this visit: no Straight Cath placed during this visit: no Results - Labs CBC & Chem 7: 05/26/18 07:04 05/25/18 23:34 Laboratory Results - last 24 hr 05/25/18 05/25/18 05/26/18 23:17 23:34 07:04 WBC 22.6 H RBC 3.19 L Hgb 8.7 L Hct 28.7 L MCV 90.0 D MCH 27.4 MCHC 30.4 L RDW 19.5 H Plt Count 535 H MPV 8.3 Neut % (Auto) 86.8 H Lymph % (Auto) 5.9 L [place] % (Auto) 6.7 Eos % (Auto) 0.1 Baso % (Auto) 0.5 Neut # (Auto) 19.7 H Lymph # (Auto) 1.3 [place] # (Auto) 1.5 H Eos # (Auto) 0.0 Baso # (Auto) 0.1 WBC Differential . Differential Comment Auto diff final Sodium 154 H Potassium 3.1 L Chloride 121 H Carbon Dioxide 27.3 Anion Gap 6 BUN 19 H Creatinine 0.34 L Estimated GFR Greater than 89 POC Glucose 133 H Random Glucose 115 H Calcium 7.6 L Phosphorus 1.6 L Magnesium 2.2 Total Bilirubin 0.3 AST 50 H ALT 82 H Alkaline Phosphatase 122 H Total Protein 5.0 L Albumin 1.9 L Vancomycin Trough 18.3 H Microbiology 05/24/18 18:45 Sputum - Nasal Tracheal Aspirate Gram Stain - Final 05/24/18 18:45 Sputum - Nasal Tracheal Aspirate Sputum Culture - Preliminary Heavy growth normal respiratory hieu at 24 hours 05/23/18 18:25 Blood - Peripheral Aerobic Blood Culture - Preliminary No growth in 2 days 05/23/18 18:25 Blood - Peripheral Anaerobic Blood Culture - Preliminary No growth in 2 days 05/23/18 18:12 Blood - Peripheral Aerobic Blood Culture - Preliminary No growth in 2 days 05/23/18 18:12 Blood - Peripheral Anaerobic Blood Culture - Preliminary No growth in 2 days 05/23/18 18:20 Catheterized Urine Urine Culture - Final Ivett albicans - Imaging Impressions Chest X-Ray 05/26/18 06:00 CONCLUSION: Aeration right lung base. Improved infiltrate. Left lungs clear. The right lateral clavicle remains fractured. Assessment and Plan - Plan Acute respiratory insufficiency pneumonia/ likely due to aspiration Nasal cannula to maintain saturations greater than equal to 92% Incentive spirometry while awake along with neb treatments. CT pulmonary angiogram revealed no signs of central pulmonary embolism. Right lower lobe infiltrate likely secondary to aspiration. CXR today with some improvement continue with IV antibiotics. History of debilitating CVA Continue aspirin and lipitor. Baclofen 10 mg p.o. twice daily Physical therapy evaluate and treat Essential hypertension Hyperlipidemia Currently not requiring vasopressors and/or antihypertensives continue atorvastatin 40 mg p.o. daily. Hypoalbuminemia Elevated transaminases continue tube feeding with vital 1.5 goal 55 cc an hour pantoprazole for GI prophylaxis Docusate sodium/senna 1 tablet twice daily for bowel regimen Leukocytosis Normocytic normochromic anemia Thrombocytosis Monitor CBC daily. Follow trends per No indication for transfusion of blood products at this time. Hypopotassemia Hypernatremia Replete potassium per protocol. Recheck BMP in a.m. Free water will be increased to 200 cc every 6 hours. Sacral deep tissue injury Contractions evaluated by plastic surgery; no indication for surgery at this time; continue with wound care. Prophylaxis -GI -pantoprazole - -DVT SCD/heparin subcutaneous
[2018-05-26] MEDS: Senna/Docusate Sodium 8.6/50 MG Tablet PO SCH ×2 (09:25→21:00)
[2018-05-26] MEDS: Multivitamin/Minerals Therapeutic Tablet PO SCH (09:25)
[2018-05-26] MEDS: Ascorbic Acid 500 MG Tablet G-TUBE SCH ×2 (09:25→21:00)
[2018-05-26] MEDS: guaiFENesin 600 MG ER Tablet PO SCH ×2 (09:25→21:00)
[2018-05-26] MEDS: Pantoprazole Inj 40 MG Vial IV.PUSH SCH (09:26)
--- NOTE | 2018-05-26 09:26 | P.DIET ---
Nutritional Evaluation Type of nutrition evaluation: initial Nutrition consult regarding: Tube Feeding Screening comments: TF review Objective - Diagnosis ARDS - Objective Body Mass Index: 22.6 % IBW: 98 (IBW = 142lb) Body Weight Used for Calculations: Actual Energy Needs - Lower Range (kCal/kg): 22 Energy Needs - Upper Range (kCal/kg): 28 Lower Limit kCal/kg (kCals): 1,397 Upper Limit kCal/kg (kCals): 1,778 Lower Limit Protein Factor (Grams per Kg): 1.1 Upper Limit Protein Factor (Grams per Kg): 1.3 Lower Protein Needs (Protein): 71 Upper Protein Needs (Protein): 83 Dietitian Reviewed in Medical Record: Current diet, Curent medications, Intake & Output, Labs, Medical history, Tube feeding Diet Order: TF Objective Comments: PMH: stroke, smoker Labs: K+ 3.1, BUN 19, Cr 0.34, POC glucose 133, Phos 1.6 Assessment Assessment: Pt currently receiving TwoCal HN @ 50mL/hr per MD. RD to recommend Vital 1.5 @ 45mL/hr to provide 1620 kcal, 73g of protein, and 825mL free water to best meet pts nutritional needs. Monitor TF tolerance. Labs reviewed, dietitian following. Recommendations: 1. RD to recommend Vital 1.5 @ 45mL/hr to best meet pts nutritional needs 2. Monitor TF tolerance 3. Dietitian following Dietitian to Monitor: Lab values, Intake & Output, Tube feeding tolerance, PO Intake, Medical course
[2018-05-26] MEDS: Mupirocin 2% Nasal Oint Topical Syringe EACH NARE SCH ×2 (09:29→20:59)
[2018-05-26] MEDS: Baclofen 10 MG Tablet G-TUBE SCH ×2 (09:43→21:00)
[2018-05-26] MEDS: dilTIAZem 30 MG Tablet G-TUBE SCH ×3 (11:23→17:21)
[2018-05-26 11:30] LABS: Alanine Aminotransferase 82 U/L (12-78); Alkaline Phosphatase 134 U/L (45-117); Anion Gap 6 meq/L (5-15); Aspartate Aminotransferase 44 U/L (15-37); Blood Urea Nitrogen 15 mg/dL (7-18); Calcium 7.6 mg/dL (8.5-10.1); Carbon Dioxide 26.1 meq/L (21.0-32.0); Chloride 117 meq/L (98-107); Glomerular Filtration Rate Greater Than 89 mL/min (>89); Glucose,Random 118 mg/dL (74-106); Phosphorus 1.6 mg/dL (2.5-4.9); Potassium 4.1 meq/L (3.5-5.1); Sodium 149 meq/L (136-145); Total Protein 5.5 g/dL (6.4-8.2)
[2018-05-26] MEDS ORDERED: Magnesium Oxide 400 MG Tablet PO PRN (11:41)
[2018-05-26] MEDS ORDERED: Potassium Phosphate 500 MG Soluble Tablet PO PRN ×2 (11:41)
[2018-05-26] MEDS ORDERED: Potassium Chlor 40 mEq Premix 40 MEQ/100 ML PIGGYBACK IV.SIG PRN ×2 (11:41)
[2018-05-26] MEDS ORDERED: Magnesium Sulfate Inj 2 GM in Sodium Chlor 0.9% Inj 96 ML IV.SIG PRN (11:41)
[2018-05-26] MEDS ORDERED: Potassium Phosphate Inj 30 MMOL in Sodium Chlor 0.9% Inj 250 ML IV.SIG PRN (11:41)
[2018-05-26] MEDS ORDERED: Sodium Phosphate Inj 30 MMOL in Sodium Chlor 0.9% Inj 250 ML IV.SIG PRN (11:41)
[2018-05-26] MEDS ORDERED: Potassium Chlor 20 mEq Premix 20 MEQ/100 ML PIGGYBACK IV.SIG PRN ×2 (11:41)
[2018-05-26] MEDS ORDERED: Potassium Chloride 25 MEQ Effervescent Tablet PO PRN (11:41)
[2018-05-26] MEDS ORDERED: Magnesium Sulfate Inj 4 GM in Sodium Chlor 0.9% Inj 92 ML IV.SIG PRN (11:41)
[2018-05-26] MEDS: Potassium Phosphate 500 MG Soluble Tablet G-TUBE SCH ×2 (14:46→20:59)
[2018-05-27] MEDS: Heparin - SQ 10,000 UNITS/ML Vial SQ SCH ×3 (05:11→21:37)
[2018-05-27] MEDS: Chlorhexidine Gluconate 2% 1 Pack (2 Cloths) TOPICAL SCH (05:11)
[2018-05-27] MEDS: metroNIDAZOLE 500 MG Tablet PO SCH ×3 (05:11→17:33)
[2018-05-27 05:29] LABS: Baso # (Auto) 0.2 th/mm3 (0.0-0.2); Baso % (Auto) 0.8 % (0.0-2.0); Eos # (Auto) 0.1 th/mm3 (0.0-0.4); Eos % (Auto) 0.3 % (0.0-4.0); Hematocrit 27.7 % (39.0-51.0); Hemoglobin 8.5 gm/dL (13.0-17.0); Lymph # (Auto) 1.5 th/mm3 (1.0-4.8); Lymph % (Auto) 7.2 % (9.0-44.0); Mean Corpuscular Hemoglobin 27.5 pg (27.0-34.0); Mean Corpuscular Volume 89.5 fL (80.0-100.0); Mean Platelet Volume 8.4 fL (7.0-11.0); Mono # (Auto) 1.7 th/mm3 (0.0-0.9); Mono % (Auto) 7.8 % (0.0-8.0); Neut % (Auto) 83.9 % (16.0-70.0); Platelet Count 520 th/mm3 (150-450); Red Cell Distribution Width 19.7 % (11.6-17.2); White Blood Count 21.4 th/mm3 (4.0-11.0)
[2018-05-27 05:33] LABS: Mean Corpuscular HGB Conc 30.8 % (32.0-36.0)
[2018-05-27 06:02] LABS: Anion Gap 10 meq/L (5-15); Aspartate Aminotransferase 33 U/L (15-37); Blood Urea Nitrogen 13 mg/dL (7-18); Calcium 7.8 mg/dL (8.5-10.1); Carbon Dioxide 23.8 meq/L (21.0-32.0); Chloride 112 meq/L (98-107); Glomerular Filtration Rate Greater Than 89 mL/min (>89); Glucose,Random 111 mg/dL (74-106); Potassium 3.8 meq/L (3.5-5.1); Sodium 146 meq/L (136-145)
[2018-05-27 06:03] LABS: Alanine Aminotransferase 66 U/L (12-78)
[2018-05-27 06:06] LABS: Alkaline Phosphatase 123 U/L (45-117); Phosphorus 2.1 mg/dL (2.5-4.9); Total Protein 5.3 g/dL (6.4-8.2)
--- NOTE | 2018-05-27 08:13 | P.PNIM ---
Subjective Interval history: f/u; pneumonia in no acute distress. afebrile today. HR trend noted. d/w the RN and no acute issues over night. Physical Exam Vital signs: Vital Signs 05/26/18 09:00 05/26/18 10:00 05/26/18 11:00 Temperature Pulse Rate 115 H 114 H 138 H Respiratory Rate 24 25 H 27 H Blood Pressure 144/71 H 124/77 Pulse Oximetry 97 95 93 L 05/26/18 11:07 05/26/18 11:15 05/26/18 12:00 Temperature 99.8 F H Pulse Rate 117 H 115 H 117 H Respiratory Rate 23 23 26 H Blood Pressure 121/74 110/69 Pulse Oximetry 94 L 91 L 05/26/18 13:00 05/26/18 14:00 05/26/18 15:00 Temperature Pulse Rate 120 H 111 H 111 H Respiratory Rate 24 23 26 H Blood Pressure 103/72 106/69 119/71 Pulse Oximetry 92 L 94 L 90 L 05/26/18 15:13 05/26/18 16:00 05/26/18 19:28 Temperature 98.4 F Pulse Rate 115 H 116 H 110 H Respiratory Rate 16 26 H 16 Blood Pressure 125/82 Pulse Oximetry 92 L 97 05/26/18 20:00 05/26/18 23:12 05/27/18 00:00 Temperature 98.2 F Pulse Rate 115 H 110 H 113 H Respiratory Rate 26 H 16 27 H Blood Pressure 119/71 145/83 H Pulse Oximetry 90 L 96 05/27/18 02:43 05/27/18 04:00 Temperature 98.2 F Pulse Rate 112 H 112 H Respiratory Rate 18 27 H Blood Pressure 128/82 Pulse Oximetry 99 Intake & Output 05/26/18 05/27/18 05/27/18 18:59 06:59 18:59 Intake Total 1469.5 / 1469.5 362.5 / 362.5 Output Total 1550 / 1550 1250 / 1250 Balance -80.5 / -80.5 -887.5 / -887.5 Intake: IV 562.5 / 562.5 362.5 / 362.5 Maxipime Inj 2,000 MG In NS Inj 100 / 100 100 / 100 100 ML @ 200 mls/hr IV.SIG Q12H [facility] Rx#:[id number] KCl 20 mEq Premix Inj 20 meq In 200 / 200 100 ml @ 50 mls/hr IV.SIG Q2H [facility] Rx#:[id number] Vancomycin Inj 1,250 MG In NS 262.5 / 262.5 262.5 / 262.5 Inj 250 ML @ 250 mls/hr IV.SIG Q12H [facility] Rx#:[id number] Oral 0 / 0 0 / 0 Tube Feeding 387 / 387 Tube Irrigant 120 / 120 Water Bolus Amount 400 / 400 Output: Urine Amount (Catheter) 1550 / 1550 1250 / 1250 Straight 1550 / 1550 1250 / 1250 Other: Date of Last Bowel Movement 05/26/18 05/26/18 # Bowel Movements 1 0 - Constitutional no acute distress - Routine Respiratory Exam Present: CTA bilaterally - Routine Cardiovascular Exam Present: tachycardia - Routine Abdominal Exam Present: soft Comments: PEG in place. - Routine Extremities Exam Comments: no pedal edema. - Routine Neurological Exam Present: alert - Urinary Catheter Management Indwelling Urethral Catheter Cath placed during this visit: no Straight Cath placed during this visit: no Results - Labs CBC & Chem 7: 05/27/18 03:57 05/27/18 03:57 Laboratory Results - last 24 hr 05/26/18 05/27/18 05/27/18 10:46 03:57 03:57 WBC 21.4 H RBC 3.10 L Hgb 8.5 L Hct 27.7 L MCV 89.5 MCH 27.5 MCHC 30.8 L RDW 19.7 H Plt Count 520 H MPV 8.4 Neut % (Auto) 83.9 H Lymph % (Auto) 7.2 L [place] % (Auto) 7.8 Eos % (Auto) 0.3 Baso % (Auto) 0.8 Neut # (Auto) 18.0 H Lymph # (Auto) 1.5 [place] # (Auto) 1.7 H Eos # (Auto) 0.1 Baso # (Auto) 0.2 WBC Differential . Differential Comment Auto diff final Sodium 149 H 146 H Potassium 4.1 D 3.8 Chloride 117 H 112 H Carbon Dioxide 26.1 23.8 Anion Gap 6 10 BUN 15 13 Creatinine 0.33 L 0.30 L Estimated GFR Greater than 89 Greater than 89 Random Glucose 118 H 111 H Calcium 7.6 L 7.8 L Phosphorus 1.6 L 2.1 L Total Bilirubin 0.3 0.3 AST 44 H 33 ALT 82 H 66 Alkaline Phosphatase 134 H 123 H Total Protein 5.5 L 5.3 L Albumin 2.0 L 2.0 L Microbiology 05/23/18 18:25 Blood - Peripheral Aerobic Blood Culture - Preliminary gram positive cocci 05/23/18 18:25 Blood - Peripheral Anaerobic Blood Culture - Preliminary No growth in 3 days 05/24/18 18:45 Sputum - Nasal Tracheal Aspirate Gram Stain - Final 05/24/18 18:45 Sputum - Nasal Tracheal Aspirate Sputum Culture - Preliminary 05/23/18 18:12 Blood - Peripheral Aerobic Blood Culture - Preliminary No growth in 3 days 05/23/18 18:12 Blood - Peripheral Anaerobic Blood Culture - Preliminary No growth in 3 days Assessment and Plan - Plan Acute respiratory insufficiency pneumonia/ likely due to aspiration UTI Nasal cannula to maintain saturations greater than equal to 92% Incentive spirometry while awake along with neb treatments. CT pulmonary angiogram revealed no signs of central pulmonary embolism. Right lower lobe infiltrate likely secondary to aspiration. CXR 05/26 with some improvement one bottle of blood cultures with gram positive cocci; likely contamination; will follow the final ID. UC with steff continue with antibiotics. History of debilitating CVA Continue aspirin and lipitor. Baclofen 10 mg p.o. twice daily Physical therapy evaluate and treat Essential hypertension Hyperlipidemia Currently not requiring vasopressors and/or antihypertensives continue atorvastatin 40 mg p.o. daily. Hypoalbuminemia Elevated transaminases- improving. continue tube feeding with vital 1.5 goal 55 cc an hour pantoprazole for GI prophylaxis Docusate sodium/senna 1 tablet twice daily for bowel regimen Leukocytosis Normocytic normochromic anemia Thrombocytosis Monitor CBC daily. Follow trends. No indication for transfusion of blood products at this time. Hypokalemia; replaced. Hypernatremia- improved Hypophosphatemia; better. Replete electrolytes per protocol. Free water was increased to 200 cc every 6 hours. Sacral deep tissue injury Contractions evaluated by plastic surgery; no indication for surgery at this time; continue with wound care. Prophylaxis -GI -pantoprazole - -DVT SCD/heparin subcutaneous will consult palliative care. transfer to floor within the next 24 hrs if stable. Discussed Condition With: the RN.
[2018-05-27] MEDS: Senna/Docusate Sodium 8.6/50 MG Tablet PO SCH ×2 (09:08→21:37)
[2018-05-27] MEDS: Multivitamin/Minerals Therapeutic Tablet PO SCH (09:09)
[2018-05-27] MEDS: Potassium Phosphate 500 MG Soluble Tablet G-TUBE SCH ×2 (09:09→21:37)
[2018-05-27] MEDS: guaiFENesin 600 MG ER Tablet PO SCH ×2 (09:09→21:37)
[2018-05-27] MEDS: dilTIAZem 30 MG Tablet G-TUBE SCH ×3 (09:09→17:33)
[2018-05-27] MEDS: Mupirocin 2% Nasal Oint Topical Syringe EACH NARE SCH ×2 (09:10→21:37)
[2018-05-27] MEDS: Ascorbic Acid 500 MG Tablet G-TUBE SCH ×2 (09:10→21:37)
[2018-05-27] MEDS: Baclofen 10 MG Tablet G-TUBE SCH ×2 (09:10→22:30)
[2018-05-27] MEDS: Pantoprazole Inj 40 MG Vial IV.PUSH SCH (09:14)
--- NOTE | 2018-05-27 10:19 | P.CONPAL ---
Consult Service: Palliative Care Requesting Physician: Evita Dhillon Reason for Consult: a. To assist with evaluation and management of symptoms including: dyspnea b. To assist medical decision maker(s) with: better understanding of current medical conditions; weighing benefits/burdens of medical treatment options; making medical treatment decisions. Primary Care Provider: Pietro Reyna MD History of Present Illness History of Present Illness: Mr. Whelan is a 57 year old male with past medical history of stroke, hyperlipidemia, tobacco use and hernia. Patient presented to [facility] Emergency department via [facility] on 05/23/18 for evaluation of shortness of breath, altered mental status and hypoxia. Initial evaluation revealed: * VS: Temp 98.8, pulse 136, respiratory rate 37, blood pressure 144/86 * WBC 26.6, hemoglobin 11.3, hematocrit 36.5, platelet count 681, neutrophil 84.2% * Sodium 147, potassium 4.4, chloride 112, carbon dioxide 25.3, BUN 25, creatinine 0.42, GFR greater than 89, glucose 103 * Lactic acid 1.7 * Total bilirubin 0.4, AST 85, ALT 151, alkaline phosphatase 183 * Troponin 0 0.09 * Total protein 6.9, albumin 2.5 * PT 10.8, INR 1.1, APTT 25.8 * Urinalysis: Large leukocyte esterase, WBC and RBC, moderate bacteria, mucus and yeast, culture indicated results pending * Nasal screen MRSA detected * Chest x-ray: lungs clear. * Chest CTA: Negative for pulmonary embolism, right lower lobe consolidation, enlarged esophagus. * EKG: Sinus tachycardia new ischemic appearing ST-T wave changes. Patient was admitted to ICU with acute respiratory insufficiency. Placed on nonrebreather to maintain sats greater than 90%. Started on broad-spectrum antibiotics for possible aspiration pneumonia. Urine cultures + steff albicans. Blood cultures staph coag negative. On Cefepime and Diflucan. Dr. Jj was consulted to evaluate decubitus ulcers of the sacrum and right hip (Stage I and Stage II) present on admission. Wound care recommendations made. No surgical intervention warranted. Since admission patient has remained on NC vs. simple mask due to agitation. He is requiring intermittent nasopharyngeal suctioning. Palliative care was consulted to assist with further clarification of goals of medical treatment. Function/Cognitive Trajectory: Patient has had ongoing trajectory of decline since December 2017. He has had repeat hospitalizations, rehab stays. Patient suffered a stroke approximately 4 years ago which left him with impaired speech though he was able to ambulate following the stroke. In the recent months he has required more assistance with bathing ambulation, has been unable to dress himself. Patient has had increased lethargy in the past few weeks. Significant other, Chapis/HC POA indicates that he has lost approximately 20-25 pounds recently. Review of Systems ROS per significant other report. Constitutional: Reports daytime sleepiness, Reports fatigue, Reports lack of energy, Reports weakness Ears, Nose, Mouth, and Throat: Reports other (Drooling) Cardiovascular: Reports shortness of breath Respiratory: Reports cough, Reports shortness of breath Gastrointestinal: Reports nausea Genitourinary: Reports urinary incontinence Musculoskeletal: Reports abnormal walking, Reports joint pain (Knee pain) Skin/Breast: Reports non-healing lesions (Sacrum and hip) Neurologic: Reports unsteadiness, Reports weakness Hematologic/Lymphatic: Reports easy bruising PMFSH - History History Provided By: Family Member, Grants Director / EMT - Medical History Medical History: Medical History (Last Updated 05/24/18 @ 08:22 by Bertha Miller) History of MRSA infection Onset Date: ~05/23/18 Hernia History of stroke Smoker Speech impairment - Surgical History Surgical History: Surgical History (Last Updated 05/27/18 @ 19:32 by Regina Celeste) Status post insertion of percutaneous endoscopic gastrostomy (PEG) tube - Family History Family History: Family History (Last Updated 05/27/18 @ 19:56 by Regina Celeste) Other Unknown family medical history - Social History I have reviewed the patient's Social History: Yes - Tobacco History Second Hand Smoke Exposure: Yes Smoking Status: Former smoker Tobacco Type: Cigarettes Packs Per Day: 2 Smoking End Date: in past 6 months - Alcohol History How Often Do You Have a Drink Containing Alcohol: 4 or more times a week (Prior alcohol use, none recent) - Substance Use History Substance History: No History of Abuse - Travel History Recent Travel in the [place] Within the Last 8 Weeks: No Recent Travel Out of the Country Within the Last 8 Weeks: No - Immunization History Tetanus Immunization: Unable to Assess Medications and Allergies Active Medications: Active Medications Al Hydroxide/Mg Hydroxide (Milk Of Magnesia Liq) 30 ml PO Q12H PRN PRN Reason: Mild Constipation Albuterol (Duoneb Neb (Doretha)) 1 ampul NEB Q4HR NEB [facility] Last Admin: 05/27/18 08:10 Dose: 1 ampul Albuterol (Albuterol Neb (Prn)) 2.5 mg NEB Q2HR NEB PRN PRN Reason: DYSPNEA Ascorbic Acid (Vitamin C) 500 mg G-TUBE BID [facility] Last Admin: 05/27/18 09:10 Dose: 500 mg Aspirin (Aspirin Chew) 81 mg PO DAILY [facility] Last Admin: 05/27/18 09:09 Dose: 81 mg Atorvastatin Calcium (Lipitor) 40 mg PO DAILY [facility] Last Admin: 05/27/18 09:09 Dose: 40 mg Baclofen (Lioresal) 10 mg G-TUBE BID [facility] Last Admin: 05/27/18 09:10 Dose: 10 mg Bisacodyl (Dulcolax Supp) 10 mg RECTAL DAILY PRN PRN Reason: SEVERE CONSITIPATION Chlorhexidine Gluconate (Chlorhexidine 2% Cloth) 3 pack TOPICAL DAILY@0400 [facility] Stop: 05/29/18 03:59 Last Admin: 05/27/18 05:11 Dose: 3 pack Chlorhexidine Gluconate (Chlorhexidine 2% Cloth) 3 pack TOPICAL DAILY@0400 PRN PRN Reason: Extra cloth needed Stop: 05/29/18 03:59 Diltiazem HCl (Cardizem) 30 mg G-TUBE TID [facility] Last Admin: 05/27/18 09:09 Dose: 30 mg Fluconazole (Diflucan) 200 mg G-TUBE DAILY [facility] Last Admin: 05/27/18 09:08 Dose: 200 mg Guaifenesin (Mucinex Er) 600 mg PO Q12H [facility] Last Admin: 05/27/18 09:09 Dose: 600 mg Heparin Sodium (Porcine) (Heparin Inj) 5,000 units SQ Q8H [facility] Last Admin: 05/27/18 05:11 Dose: 5,000 units Cefepime HCl 2,000 mg/ Sodium (Chloride) 100 mls @ 200 mls/hr IV.SIG Q12H [facility] Last Admin: 05/27/18 09:15 Dose: 200 mls/hr Vancomycin HCl 1,250 mg/ (Sodium Chloride) 262.5 mls @ 250 mls/hr IV.SIG Q12H [facility] Last Infusion: 05/27/18 01:05 Dose: Infused L-Arginine/L-Glutamine/Calcium HMB (Jose Packet) 1 packet PO BID [facility] Last Admin: 05/27/18 09:12 Dose: Not Given Lactulose (Lactulose Liq) 30 ml PO DAILY PRN PRN Reason: SEVERE CONSITIPATION Metronidazole (Flagyl) 500 mg PO Q6HR [facility] Last Admin: 05/27/18 05:11 Dose: 500 mg Morphine Sulfate (Morphine Inj) 2 mg IV.PUSH Q2H PRN PRN Reason: PAIN SCALE 6 TO 10 Multivitamins/Minerals (Theragran-M) 1 tab PO DAILY [facility] Last Admin: 05/27/18 09:09 Dose: 1 tab Mupirocin (Bactroban 2% Nasal Oint) 1 applicatio EACH NARE BID [facility] Last Admin: 05/27/18 09:10 Dose: 1 applicatio Ondansetron HCl (Zofran Inj) 4 mg IV.PUSH Q6H PRN PRN Reason: NAUSEA OR VOMITING Pantoprazole Sodium (Protonix Inj) 40 mg IV.PUSH Q24H [facility] Last Admin: 05/27/18 09:14 Dose: 40 mg Pharmacy Profile Note (Vancomycin Consult Pharmacy) 1 each OTHER UNSCH PRN PRN Reason: Pharmacy to dose Potassium Phosphate (K-Phos Original) 500 mg G-TUBE BID [facility] Last Admin: 05/27/18 09:09 Dose: 500 mg Povidone Iodine (Betadine 10% Oint) 1 applicatio TOPICAL BID [facility] Last Admin: 05/27/18 09:11 Dose: 1 applicatio Senna/Docusate Sodium (Juli-Colace) 1 tab PO BID [facility] Last Admin: 05/27/18 09:08 Dose: 1 tab Sennosides (Senokot) 17.2 mg PO Q12H PRN PRN Reason: Moderate Constipation Sodium Chloride (Ns Flush) 2 ml IV.FLUSH BID [facility] Last Admin: 05/27/18 09:12 Dose: 2 ml Sodium Chloride (Ns Flush) 2 ml IV.FLUSH PRN PRN PRN Reason: FLUSH AFTER USING IV ACCESS Sodium Chloride (Sodium Chloride 3% Neb) 2 ml NEB Q4HR NEB [facility] Stop: 05/29/18 19:59 Last Admin: 05/27/18 08:10 Dose: 2 ml Sterile Water (Free Water) 200 ml G-TUBE Q6HR [facility] Last Admin: 05/27/18 05:11 Dose: 200 ml Zinc Sulfate (Zinc-220) 220 mg PO DAILY [facility] Last Admin: 05/27/18 09:14 Dose: 220 mg Allergies Allergy/AdvReac Type Severity Reaction Status Date / Time No Known Allergies Allergy Verified 04/25/18 20:36 Home Medications Medication Instructions Recorded Confirmed Type arginine-vitamin C-vitamin E 1 packet FEEDING TUBE BID 05/23/18 05/23/18 History [Arginaid] ascorbic acid (vitamin C) [Vitamin 500 mg FEEDING TUBE BID 05/23/18 05/23/18 History C] baclofen 10 mg FEEDING TUBE BID 05/23/18 05/23/18 History guaifenesin [Mucinex] 600 mg PO Q12H 05/23/18 05/23/18 History levofloxacin [Levaquin] 500 mg FEEDING TUBE DAILY 05/23/18 05/23/18 History multivitamin with minerals 15 ml FEEDING TUBE DAILY 05/23/18 05/23/18 History zinc sulfate 220 mg FEEDING TUBE DAILY 05/23/18 05/23/18 History Advance Directives Health Care Surrogate Name and Number: Power of director drug safety includes healthcare, Chapis Richardson: [phone] Power of Learning Facilitator: Yes Power of Learning Facilitator Name: Chapis Richardson Power of Learning Facilitator Power of Learning Facilitator Relationship to Patient: Significant Other Family/friends goals: Desires continued aggressive care including FULL CODE. Ethical and Legal Issues: Patient does not appear capacitated to make his own healthcare decisions, uncertain if he will regain capacity. DURABLE POWER OF BUNCH BREAKER on chart includes healthcare names Chapis Richardson as healthcare decision maker. Physical Exam Vital Signs: Vital Signs - 24 hr 05/26/18 10:00 05/26/18 11:00 05/26/18 11:07 Temperature Pulse Rate 114 H 138 H 117 H Respiratory Rate 25 H 27 H 23 Blood Pressure 124/77 121/74 Pulse Oximetry 95 93 L 94 L 05/26/18 11:15 05/26/18 12:00 05/26/18 13:00 Temperature 99.8 F H Pulse Rate 115 H 117 H 120 H Respiratory Rate 23 26 H 24 Blood Pressure 110/69 103/72 Pulse Oximetry 91 L 92 L 05/26/18 14:00 05/26/18 15:00 05/26/18 15:13 Temperature Pulse Rate 111 H 111 H 115 H Respiratory Rate 23 26 H 16 Blood Pressure 106/69 119/71 Pulse Oximetry 94 L 90 L 05/26/18 16:00 05/26/18 19:28 05/26/18 20:00 Temperature 98.4 F 98.2 F Pulse Rate 116 H 110 H 115 H Respiratory Rate 26 H 16 26 H Blood Pressure 125/82 119/71 Pulse Oximetry 92 L 97 90 L 05/26/18 23:12 05/27/18 00:00 05/27/18 02:43 Temperature Pulse Rate 110 H 113 H 112 H Respiratory Rate 16 27 H 18 Blood Pressure 145/83 H Pulse Oximetry 96 05/27/18 04:00 05/27/18 07:00 05/27/18 08:00 Temperature 98.2 F Pulse Rate 112 H 111 H Respiratory Rate 27 H 18 Blood Pressure 128/82 Pulse Oximetry 99 92 L I&O: Intake & Output 05/25/18 05/26/18 05/27/18 05/28/18 06:59 06:59 06:59 06:59 Intake Total 1779.0 / 1779.0 1385.0 / 1385.0 1832.0 / 1832.0 Output Total 1680 / 1680 1450 / 1450 2800 / 2800 Balance 99.0 / 99.0 -65.0 / -65.0 -968.0 / -968.0 Physical Exam: CONSTITUTIONAL/GENERAL: This is a thin, chronically ill appearing male. TUBES/LINES/DRAINS:PIV bilateral, oxygen via simple mask, PEG tube, Chapin SKIN: No jaundice, rashes, or lesions. Ecchymoses on upper extremities. No wounds seen anteriorly. Sacral and hip wounds per nursing notes, not visualized. Skin temperature appropriate. Not diaphoretic. HEAD: Atraumatic. Normocephalic. EYES: Pupils equal and round and reactive. ENT: Hearing appears grossly normal. Nose without bleeding or purulent drainage. Drooling clear thin secretions, copious amounts. NECK: Trachea midline. CARDIOVASCULAR: Tachycardic. RESPIRATORY/CHEST: Diminished Breath sounds bilaterally. scattered coarse breath sounds. GASTROINTESTINAL: Abdomen soft, non-tender, nondistended. PEG tube. Bowel sounds present. GENITOURINARY: Without palpable bladder distension. Chapin catheter in place. MUSCULOSKELETAL: Extremities without clubbing, cyanosis, or edema. Hypersensitive to light touch. No mottling or clubbing. Contractures. LYMPHATICS: Not examined. NEUROLOGICAL: Awake and alert. Motor and sensory grossly within normal limits. Follows commands. Cognitively sharp. Moves all extremities. PSYCHIATRIC: No obvious anxiety/depression. no apparent hallucinations or other psychotic thought process. Diagnostic Tests Laboratory: Laboratory Results - last 72 hr 05/25/18 05/25/18 05/25/18 02:40 05:44 05:44 WBC 22.9 H RBC 2.98 L Hgb 7.9 L Hct 28.1 L MCV 94.1 MCH 26.6 L MCHC 28.3 L RDW 20.5 H Plt Count 467 H MPV 7.8 Neut % (Auto) 87.1 H Lymph % (Auto) 4.9 L Wilkes % (Auto) 7.7 Eos % (Auto) 0.1 Baso % (Auto) 0.2 Neut # (Auto) 19.9 H Lymph # (Auto) 1.1 Wilkes # (Auto) 1.8 H Eos # (Auto) 0.0 Baso # (Auto) 0.1 WBC Differential . Differential Comment Auto diff final Puncture Site Patient Temperature O2 Saturation ABG pH ABG pCO2 ABG pO2 ABG HCO3 ABG O2 Content ABG Base Excess ABG Methemoglobin Sean Test Hemoglobin Carboxyhemoglobin O2 Delivery Device Liter Flow Critical Value Sodium 147 H Potassium 3.4 L Chloride 121 H Carbon Dioxide 19.3 L Anion Gap 7 BUN 24 H Creatinine 0.36 L Estimated GFR Greater than 89 POC Glucose 90 Random Glucose 94 Calcium 7.6 L Phosphorus 2.5 Magnesium 2.0 Total Bilirubin 0.2 AST 30 ALT 58 Alkaline Phosphatase 106 Total Protein 5.2 L Albumin 1.4 L Vancomycin Trough 05/25/18 05/25/18 05/25/18 07:31 23:17 23:34 WBC RBC Hgb Hct MCV MCH MCHC RDW Plt Count MPV Neut % (Auto) Lymph % (Auto) Wilkes % (Auto) Eos % (Auto) Baso % (Auto) Neut # (Auto) Lymph # (Auto) Wilkes # (Auto) Eos # (Auto) Baso # (Auto) WBC Differential Differential Comment Puncture Site Right radial Patient Temperature 98.6 O2 Saturation 97 ABG pH 7.47 H ABG pCO2 32 L ABG pO2 249 H ABG HCO3 23 ABG O2 Content 11.6 L ABG Base Excess -0.6 ABG Methemoglobin 1.3 Sean Test Present Hemoglobin 8.0 L Carboxyhemoglobin 1.8 O2 Delivery Device Partial-rebreather Liter Flow 15.00 Critical Value No Sodium 154 H Potassium 3.1 L Chloride 121 H Carbon Dioxide 27.3 Anion Gap 6 BUN 19 H Creatinine 0.34 L Estimated GFR Greater than 89 POC Glucose 133 H Random Glucose 115 H Calcium 7.6 L Phosphorus 1.6 L Magnesium 2.2 Total Bilirubin 0.3 AST 50 H ALT 82 H Alkaline Phosphatase 122 H Total Protein 5.0 L Albumin 1.9 L Vancomycin Trough 18.3 H 05/26/18 05/26/18 05/27/18 07:04 10:46 03:57 WBC 22.6 H 21.4 H RBC 3.19 L 3.10 L Hgb 8.7 L 8.5 L Hct 28.7 L 27.7 L MCV 90.0 D 89.5 MCH 27.4 27.5 MCHC 30.4 L 30.8 L RDW 19.5 H 19.7 H Plt Count 535 H 520 H MPV 8.3 8.4 Neut % (Auto) 86.8 H 83.9 H Lymph % (Auto) 5.9 L 7.2 L Wilkes % (Auto) 6.7 7.8 Eos % (Auto) 0.1 0.3 Baso % (Auto) 0.5 0.8 Neut # (Auto) 19.7 H 18.0 H Lymph # (Auto) 1.3 1.5 Wilkes # (Auto) 1.5 H 1.7 H Eos # (Auto) 0.0 0.1 Baso # (Auto) 0.1 0.2 WBC Differential . . Differential Comment Auto diff final Auto diff final Puncture Site Patient Temperature O2 Saturation ABG pH ABG pCO2 ABG pO2 ABG HCO3 ABG O2 Content ABG Base Excess ABG Methemoglobin Sean Test Hemoglobin Carboxyhemoglobin O2 Delivery Device Liter Flow Critical Value Sodium 149 H Potassium 4.1 D Chloride 117 H Carbon Dioxide 26.1 Anion Gap 6 BUN 15 Creatinine 0.33 L Estimated GFR Greater than 89 POC Glucose Random Glucose 118 H Calcium 7.6 L Phosphorus 1.6 L Magnesium Total Bilirubin 0.3 AST 44 H ALT 82 H Alkaline Phosphatase 134 H Total Protein 5.5 L Albumin 2.0 L Vancomycin Trough 05/27/18 03:57 WBC RBC Hgb Hct MCV MCH MCHC RDW Plt Count MPV Neut % (Auto) Lymph % (Auto) Wilkes % (Auto) Eos % (Auto) Baso % (Auto) Neut # (Auto) Lymph # (Auto) Wilkes # (Auto) Eos # (Auto) Baso # (Auto) WBC Differential Differential Comment Puncture Site Patient Temperature O2 Saturation ABG pH ABG pCO2 ABG pO2 ABG HCO3 ABG O2 Content ABG Base Excess ABG Methemoglobin Sean Test Hemoglobin Carboxyhemoglobin O2 Delivery Device Liter Flow Critical Value Sodium 146 H Potassium 3.8 Chloride 112 H Carbon Dioxide 23.8 Anion Gap 10 BUN 13 Creatinine 0.30 L Estimated GFR Greater than 89 POC Glucose Random Glucose 111 H Calcium 7.8 L Phosphorus 2.1 L Magnesium Total Bilirubin 0.3 AST 33 ALT 66 Alkaline Phosphatase 123 H Total Protein 5.3 L Albumin 2.0 L Vancomycin Trough Result Diagrams: 05/27/18 03:57 05/27/18 03:57 Microbiology: Microbiology 05/23/18 18:25 Aerobic Blood Culture - Preliminary Blood - Peripheral Staphylococcus coag negative Anaerobic Blood Culture - Preliminary No growth in 3 days 05/24/18 18:45 Gram Stain - Final Sputum - Nasal Tracheal Aspirate Sputum Culture - Preliminary 05/23/18 18:12 Aerobic Blood Culture - Preliminary Blood - Peripheral No growth in 3 days Anaerobic Blood Culture - Preliminary No growth in 3 days 05/23/18 18:20 Urine Culture - Final Catheterized Urine Steff albicans 05/24/18 18:45 Influenza Types A,B Antigen - Final Nasal Wash Negative for FLU A and B antigen Infection due to influenza A or B cannot be ruled out since the antigen present in the sample may be below the detection limit of the test. Patient/Family Conference Issues Discussed: * Palliative care role, purpose, approach * Additional medical, psychosocial, and spiritual history * Patients general health, functional status, and cognitive changes in the months leading up to the current hospitalization * Patient/family understanding of the current medical problems * Patient/family understanding of prognosis * Patients goals of care as best understood from advance directives and/or conversations and/or values * Current medical treatment options and benefits/burdens of those options * Likely scenarios comparing ongoing aggressive care with a transition to comfort measures only * Questions answered to the best of my ability * Palliative care contact information provided Assessment and Plan - Disease Oriented Problem List (1) UTI (urinary tract infection) (2) Aspiration pneumonia (3) Hypoxia (4) Debility - Symptom Scale (1) Shortness of breath 0-10 Scale: Unable to quantify Pertinent Non-Medical Issues: Psychosocial: Has been with his significant other, Chapis for the past 20 years. Spiritual: [employer]. Legal: Patient does not appear capacitated to make his own healthcare decisions , uncertain if he will regain capacity. DURABLE POWER OF BUNCH BREAKER on chart includes healthcare names Chapis Richardson as healthcare decision maker. Ethical issues impacting care: No known concerns at this time. Important Contacts: * Chapis Richardson, : [phone] Prognosis: Mr. Whelan is an unfortunate 57-year-old male who previously suffered a stroke and has had recent trajectory of decline for the past 6 months. He appears quite debilitated. He remains high risk for further setbacks and decline. Hospice appropriate if goals are comfort oriented. Code Status: Full Code Plan: * Legal Decision Maker:atient does not appear capacitated to make his own healthcare decisions, uncertain if he will regain capacity. DURABLE POWER OF BUNCH BREAKER on chart includes healthcare names Chapis Richardson as healthcare decision maker. * FULL CODE * GOALS: Goals remain aggressive at this time including FULL Code. * SYMPTOMS: Altered mental status: Secondary to infection and prior stroke. On antibiotics and Diflucan. Dyspnea: On oxygen via nasal cannula alternating with simple mask. Nebulizers and antibiotics ordered. * Palliative care number provided. * Palliative care will continue to follow throughout hospital course to assist with symptom management further clarification of goals of medical treatment as needed. Appreciation Thank you for the opportunity to participate in the care of Buck Whelan. Attestation Attestation: To help prompt me to consider important information that might be impacting today's encounter and assessment, information from prior notes written by myself or my colleagues may have been "brought forward" into today's note. My signature on this note, however, is an attestation that I personally performed the exam, history, and/or decision-making noted today, and, unless otherwise indicated, the interactions with patient, family, and staff as well as the review of records all occurred today. I also attest that the listed assessment and stated plan reflect my best clinical judgment today based on the combination of historical information, prior notes, and today's exam/ interactions. When time spent is documented, it refers only to time spent today by the signer, or if indicated, combined time spent today by collaborating physician/nurse practitioner.
[2018-05-27] MEDS: Vancomycin Inj 1,250 MG in Sodium Chlor 0.9% Inj 250 ML IV.SIG SCH (12:28)
--- NOTE | 2018-05-27 22:36 | ECG ---
Date Performed: 05/26/2018 Time Performed: 13:20:45 PTAGE: 57 years EKG: SINUS TACHYCARDIA ST DEVIATION AND MARKED T-WAVE ABNORMALITY ABNORMAL ECG PREVIOUS TRACING : 05/23/2018 17.57 Since the previous tracing, no significant change noted DOCTOR: Warren Braga Interpretating Date/Time 05/27/2018 22:34:45
[2018-05-28] MEDS: Vancomycin Inj 1,250 MG in Sodium Chlor 0.9% Inj 250 ML IV.SIG SCH ×3 (01:31→23:43)
[2018-05-28] MEDS: metroNIDAZOLE 500 MG Tablet PO SCH ×2 (01:31→06:22)
[2018-05-28 06:09] LABS: Baso # (Auto) 0.2 th/mm3 (0.0-0.2); Baso % (Auto) 0.7 % (0.0-2.0); Eos % (Auto) 0.2 % (0.0-4.0); Hematocrit 28.5 % (39.0-51.0); Lymph # (Auto) 1.9 th/mm3 (1.0-4.8); Lymph % (Auto) 7.8 % (9.0-44.0); Mean Corpuscular HGB Conc 31.7 % (32.0-36.0); Mean Corpuscular Hemoglobin 27.8 pg (27.0-34.0); Mean Corpuscular Volume 87.6 fL (80.0-100.0); Mean Platelet Volume 7.9 fL (7.0-11.0); Mono # (Auto) 1.7 th/mm3 (0.0-0.9); Mono % (Auto) 7.2 % (0.0-8.0); Neut # (Auto) 20.2 th/mm3 (1.8-7.7); Neut % (Auto) 84.1 % (16.0-70.0); Platelet Count 517 th/mm3 (150-450); Red Blood Count 3.25 mil/mm3 (4.50-5.90); Red Cell Distribution Width 19.6 % (11.6-17.2); White Blood Count 24.1 th/mm3 (4.0-11.0)
[2018-05-28] MEDS: Heparin - SQ 10,000 UNITS/ML Vial SQ SCH ×3 (06:22→21:04)
[2018-05-28] MEDS: Chlorhexidine Gluconate 2% 1 Pack (2 Cloths) TOPICAL SCH (06:23)
[2018-05-28 06:34] LABS: Anion Gap 8 meq/L (5-15); Blood Urea Nitrogen 14 mg/dL (7-18); Calcium 7.9 mg/dL (8.5-10.1); Carbon Dioxide 26.3 meq/L (21.0-32.0); Chloride 109 meq/L (98-107); Glomerular Filtration Rate Greater Than 89 mL/min (>89); Glucose,Random 105 mg/dL (74-106); Potassium 4.1 meq/L (3.5-5.1); Sodium 143 meq/L (136-145)
[2018-05-28 06:35] LABS: Phosphorus 2.8 mg/dL (2.5-4.9)
--- NOTE | 2018-05-28 07:53 | P.PNIM ---
Subjective Interval history: f/u; pneumonia in no acute distress. looks more comfortable today. no fever. d/w the RN and no acute issues over night. Physical Exam Vital signs: Vital Signs 05/27/18 08:00 05/27/18 09:00 05/27/18 10:00 Temperature 98.8 F Pulse Rate 111 H 117 H 112 H Respiratory Rate 28 H 32 H 27 H Blood Pressure 116/71 131/67 127/67 Pulse Oximetry 91 L 95 91 L 05/27/18 11:00 05/27/18 11:55 05/27/18 12:00 Temperature 98.6 F Pulse Rate 110 H 109 H 109 H Respiratory Rate 28 H 18 28 H Blood Pressure 116/61 Pulse Oximetry 93 L 95 05/27/18 12:27 05/27/18 13:00 05/27/18 13:01 Temperature Pulse Rate 110 H 108 H 108 H Respiratory Rate 30 H 32 H 28 H Blood Pressure 110/74 101/66 Pulse Oximetry 95 94 L 93 L 05/27/18 14:00 05/27/18 15:00 05/27/18 16:00 Temperature 98.0 F Pulse Rate 104 H 102 H 109 H Respiratory Rate 29 H 29 H 31 H Blood Pressure 109/69 106/68 Pulse Oximetry 94 L 96 94 L 05/27/18 16:03 05/27/18 16:46 05/27/18 17:00 Temperature Pulse Rate 109 H 112 H 111 H Respiratory Rate 20 30 H 31 H Blood Pressure 103/59 L 145/58 H Pulse Oximetry 96 94 L 05/27/18 18:00 05/27/18 18:01 05/27/18 19:00 Temperature Pulse Rate 101 H 102 H 102 H Respiratory Rate 30 H 25 H 28 H Blood Pressure 90/66 L 91/61 L Pulse Oximetry 91 L 97 97 05/27/18 20:00 05/27/18 21:00 05/27/18 22:00 Temperature Pulse Rate 101 H 104 H 109 H Respiratory Rate 30 H 31 H 31 H Blood Pressure 97/58 L 85/54 L 91/64 L Pulse Oximetry 96 94 L 92 L 05/27/18 23:00 05/27/18 23:54 05/28/18 00:00 Temperature Pulse Rate 108 H 108 H 109 H Respiratory Rate 27 H 24 31 H Blood Pressure 96/63 L 92/64 L Pulse Oximetry 94 L 95 05/28/18 01:00 05/28/18 02:00 05/28/18 03:00 Temperature Pulse Rate 109 H 106 H 101 H Respiratory Rate 32 H 32 H 31 H Blood Pressure 94/58 L 98/60 L 91/61 L Pulse Oximetry 90 L 97 96 05/28/18 04:00 05/28/18 04:08 05/28/18 05:00 Temperature Pulse Rate 101 H 101 H 105 H Respiratory Rate 31 H 30 H 30 H Blood Pressure 95/66 L Pulse Oximetry 95 94 L 05/28/18 05:24 05/28/18 06:00 05/28/18 07:43 Temperature Pulse Rate 106 H 109 H 109 H Respiratory Rate 29 H 30 H 26 H Blood Pressure 107/66 109/76 Pulse Oximetry 94 L 94 L 05/28/18 07:46 Temperature Pulse Rate Respiratory Rate Blood Pressure Pulse Oximetry 95 Intake & Output 05/27/18 05/28/18 05/28/18 18:59 06:59 18:59 Intake Total 1070 / 1070 1525.0 / 1525.0 Output Total 1100 / 1100 200 / 200 Balance -30 / -30 1325.0 / 1325.0 Intake: IV 100 / 100 625.0 / 625.0 Maxipime Inj 2,000 MG In NS Inj 100 / 100 100 / 100 100 ML @ 200 mls/hr IV.SIG Q12H [facility] Rx#:[id number] Vancomycin Inj 1,250 MG In NS 525.0 / 525.0 Inj 250 ML @ 250 mls/hr IV.SIG Q12H [facility] Rx#:[id number] Oral 0 / 0 Tube Feeding 450 / 450 500 / 500 Tube Irrigant 120 / 120 Water Bolus Amount 400 / 400 400 / 400 Output: Urine Amount (Catheter) 1100 / 1100 200 / 200 Straight 1100 / 1100 200 / 200 Other: Date of Last Bowel Movement 05/26/18 05/26/18 # Bowel Movements 0 - Constitutional no acute distress - Routine Respiratory Exam Present: CTA bilaterally - Routine Cardiovascular Exam Present: tachycardia - Routine Abdominal Exam Present: soft - Routine Extremities Exam Comments: no pedal edema. - Routine Neurological Exam Present: alert - Urinary Catheter Management Indwelling Urethral Catheter Cath placed during this visit: no Straight Cath placed during this visit: no Results - Labs CBC & Chem 7: 05/28/18 05:54 05/28/18 05:54 Laboratory Results - last 24 hr 05/28/18 05/28/18 05:54 05:54 WBC 24.1 H RBC 3.25 L Hgb 9.0 L Hct 28.5 L MCV 87.6 MCH 27.8 MCHC 31.7 L RDW 19.6 H Plt Count 517 H MPV 7.9 Neut % (Auto) 84.1 H Lymph % (Auto) 7.8 L [place] % (Auto) 7.2 Eos % (Auto) 0.2 Baso % (Auto) 0.7 Neut # (Auto) 20.2 H Lymph # (Auto) 1.9 [place] # (Auto) 1.7 H Eos # (Auto) 0.0 Baso # (Auto) 0.2 WBC Differential . Differential Comment Auto diff final Sodium 143 Potassium 4.1 Chloride 109 H Carbon Dioxide 26.3 Anion Gap 8 BUN 14 Creatinine 0.21 L Estimated GFR Greater than 89 Random Glucose 105 Calcium 7.9 L Phosphorus 2.8 Microbiology 05/24/18 18:45 Sputum - Nasal Tracheal Aspirate Gram Stain - Final 05/24/18 18:45 Sputum - Nasal Tracheal Aspirate Sputum Culture - Preliminary S. aureus MRSA 05/23/18 18:25 Blood - Peripheral Aerobic Blood Culture - Preliminary Staphylococcus coag negative 05/23/18 18:25 Blood - Peripheral Anaerobic Blood Culture - Preliminary No growth in 4 days 05/23/18 18:12 Blood - Peripheral Aerobic Blood Culture - Preliminary No growth in 4 days 05/23/18 18:12 Blood - Peripheral Anaerobic Blood Culture - Preliminary No growth in 4 days Assessment and Plan - Plan Acute respiratory insufficiency MRSA pneumonia UTI Nasal cannula to maintain saturations greater than equal to 92% Incentive spirometry while awake along with neb treatments. CT pulmonary angiogram revealed no signs of central pulmonary embolism. Right lower lobe infiltrate . CXR 05/26 with some improvement sputum culture with MRSA one bottle of blood cultures with gram positive cocci; likely contamination; will follow the final ID. UC with steff continue with antibiotics. will consult ID History of debilitating CVA Continue aspirin and lipitor. Baclofen 10 mg p.o. twice daily Physical therapy evaluate and treat Essential hypertension Hyperlipidemia Currently not requiring vasopressors and/or antihypertensives continue atorvastatin 40 mg p.o. daily. Hypoalbuminemia Elevated transaminases- improving. continue tube feeding with vital 1.5 goal 55 cc an hour pantoprazole for GI prophylaxis Docusate sodium/senna 1 tablet twice daily for bowel regimen Leukocytosis Normocytic normochromic anemia Thrombocytosis Monitor CBC daily. Follow trends. Hypokalemia; replaced. Hypernatremia- improved Hypophosphatemia; resolved. Replete electrolytes as needed. Free water was increased to 200 cc every 6 hours. Sacral deep tissue injury Contractions evaluated by plastic surgery; no indication for surgery at this time; continue with wound care. Prophylaxis -GI -pantoprazole - -DVT SCD/heparin subcutaneous palliative care consult appreciated. will transfer to floor. Discussed Condition With: the RN.
[2018-05-28] MEDS: Mupirocin 2% Nasal Oint Topical Syringe EACH NARE SCH ×2 (09:24→20:57)
[2018-05-28] MEDS: Ascorbic Acid 500 MG Tablet G-TUBE SCH ×2 (09:24→20:56)
[2018-05-28] MEDS: Senna/Docusate Sodium 8.6/50 MG Tablet PO SCH ×2 (09:24→20:56)
[2018-05-28] MEDS: guaiFENesin 600 MG ER Tablet PO SCH ×2 (09:24→21:04)
[2018-05-28] MEDS: Pantoprazole Inj 40 MG Vial IV.PUSH SCH (09:24)
[2018-05-28] MEDS: Multivitamin/Minerals Therapeutic Tablet PO SCH (09:25)
[2018-05-28] MEDS: Baclofen 10 MG Tablet G-TUBE SCH ×2 (09:25→20:56)
[2018-05-28] MEDS ORDERED: Pharmacy Ordered Lab Info OTHER ONE ×2 (11:45→23:45)
--- NOTE | 2018-05-28 16:08 | P.PNPAL ---
Reason for Visit Reason for visit: a. To assist with evaluation and management of symptoms including: dyspnea b. To assist medical decision maker(s) with: better understanding of current medical conditions; weighing benefits/burdens of medical treatment options; making medical treatment decisions. Subjective Subjective/Interval History: Call from significant other, Chapis. She was upset about my conversation with her last night. She tells me I told her to call the media strategist because he was going to . I attempted to explain he was moved to medical floor that he would likely survive this admission. I advised my conversation was telling her he remains high risk for further setbacks and decline given ongoing trajectory of decline since December 2017. I asked about CODE status, which she became tearful and hung up stating she "needed to see him first." I told her I would come to his room to speak with her, she said okay. I arrived to room and she had left. Patient awakens easily, he answers simple questions. He denies pain. Nods yes to shortness of breath. He denies anxiety. He is on room air, oxygen sats 100%. Tachycardic rate 104. BP 111/73. WBC remains elevated 24.1. Creatinine 0.21. Family/Friend Interactions: See interval note. Advance Directives Health Care Surrogate Name and Number: Power of collections attorney includes kassie, Chapis Richardson: [phone] Significant change in goals:: FULL CODE. Goals remain aggressive. Objective Vital Signs: Vital Signs 05/27/18 16:00 05/27/18 16:03 05/27/18 16:46 Temperature 98.0 F Pulse Rate 109 H 109 H 112 H Respiratory Rate 31 H 20 30 H Blood Pressure 103/59 L Pulse Oximetry 94 L 96 05/27/18 17:00 05/27/18 18:00 05/27/18 18:01 Temperature Pulse Rate 111 H 101 H 102 H Respiratory Rate 31 H 30 H 25 H Blood Pressure 145/58 H 90/66 L Pulse Oximetry 94 L 91 L 97 05/27/18 19:00 05/27/18 20:00 05/27/18 21:00 Temperature Pulse Rate 102 H 101 H 104 H Respiratory Rate 28 H 30 H 31 H Blood Pressure 91/61 L 97/58 L 85/54 L Pulse Oximetry 97 96 94 L 05/27/18 22:00 05/27/18 23:00 05/27/18 23:54 Temperature Pulse Rate 109 H 108 H 108 H Respiratory Rate 31 H 27 H 24 Blood Pressure 91/64 L 96/63 L Pulse Oximetry 92 L 94 L 05/28/18 00:00 05/28/18 01:00 05/28/18 02:00 Temperature Pulse Rate 109 H 109 H 106 H Respiratory Rate 31 H 32 H 32 H Blood Pressure 92/64 L 94/58 L 98/60 L Pulse Oximetry 95 90 L 97 05/28/18 03:00 05/28/18 04:00 05/28/18 04:08 Temperature Pulse Rate 101 H 101 H 101 H Respiratory Rate 31 H 31 H 30 H Blood Pressure 91/61 L 95/66 L Pulse Oximetry 96 95 05/28/18 05:00 05/28/18 05:24 05/28/18 06:00 Temperature Pulse Rate 105 H 106 H 109 H Respiratory Rate 30 H 29 H 30 H Blood Pressure 107/66 109/76 Pulse Oximetry 94 L 94 L 94 L 05/28/18 07:43 05/28/18 07:46 05/28/18 08:00 Temperature 98.5 F Pulse Rate 109 H 110 H Respiratory Rate 26 H 20 Blood Pressure 120/74 Pulse Oximetry 95 95 05/28/18 11:32 05/28/18 12:00 Temperature Pulse Rate 108 H 104 H Respiratory Rate 28 H 18 Blood Pressure 111/73 Pulse Oximetry 96 Intake & Output 05/27/18 05/28/18 05/28/18 18:59 06:59 18:59 Intake Total 1070 / 1070 1525.0 / 1525.0 362.5 / 362.5 Output Total 1100 / 1100 200 / 200 Balance -30 / -30 1325.0 / 1325.0 362.5 / 362.5 Intake: IV 100 / 100 625.0 / 625.0 362.5 / 362.5 Maxipime Inj 2,000 MG In NS Inj 100 / 100 100 / 100 100 / 100 100 ML @ 200 mls/hr IV.SIG Q12H [facility] Rx#:[id number] Vancomycin Inj 1,250 MG In NS 525.0 / 525.0 262.5 / 262.5 Inj 250 ML @ 250 mls/hr IV.SIG Q12H [facility] Rx#:[id number] Oral 0 / 0 Tube Feeding 450 / 450 500 / 500 Tube Irrigant 120 / 120 Water Bolus Amount 400 / 400 400 / 400 Output: Urine Amount (Catheter) 1100 / 1100 200 / 200 Straight 1100 / 1100 200 / 200 Other: Date of Last Bowel Movement 05/26/18 05/26/18 05/26/18 # Bowel Movements 0 Physical Exam: CONSTITUTIONAL/GENERAL: This is a thin, chronically ill appearing male. TUBES/LINES/DRAINS:PIV bilateral, oxygen via simple mask, PEG tube, [place] SKIN: No jaundice, rashes, or lesions. Ecchymoses on upper extremities. No wounds seen anteriorly. Sacral and hip wounds per nursing notes, not visualized. Skin temperature appropriate. Not diaphoretic. ENT: Hearing appears grossly normal. Nose without bleeding or purulent drainage. CARDIOVASCULAR: Tachycardic. RESPIRATORY/CHEST: Diminished Breath sounds bilaterally. scattered coarse breath sounds. GASTROINTESTINAL: Abdomen soft, non-tender, nondistended. PEG tube. Bowel sounds present. GENITOURINARY: Without palpable bladder distension. Chapin catheter in place. MUSCULOSKELETAL: Extremities without clubbing, cyanosis, or edema. Hypersensitive to light touch. No mottling or clubbing. Contractures. NEUROLOGICAL: Awakens easily. Cognitively sharp. Moves all extremities. PSYCHIATRIC: calm. Diagnostic Tests Laboratory: Laboratory Results - last 72 hr 05/25/18 05/25/18 05/26/18 23:17 23:34 07:04 WBC 22.6 H RBC 3.19 L Hgb 8.7 L Hct 28.7 L MCV 90.0 D MCH 27.4 MCHC 30.4 L RDW 19.5 H Plt Count 535 H MPV 8.3 Neut % (Auto) 86.8 H Lymph % (Auto) 5.9 L [place] % (Auto) 6.7 Eos % (Auto) 0.1 Baso % (Auto) 0.5 Neut # (Auto) 19.7 H Lymph # (Auto) 1.3 [place] # (Auto) 1.5 H Eos # (Auto) 0.0 Baso # (Auto) 0.1 WBC Differential . Differential Comment Auto diff final Sodium 154 H Potassium 3.1 L Chloride 121 H Carbon Dioxide 27.3 Anion Gap 6 BUN 19 H Creatinine 0.34 L Estimated GFR Greater than 89 POC Glucose 133 H Random Glucose 115 H Calcium 7.6 L Phosphorus 1.6 L Magnesium 2.2 Total Bilirubin 0.3 AST 50 H ALT 82 H Alkaline Phosphatase 122 H Total Protein 5.0 L Albumin 1.9 L Vancomycin Trough 18.3 H 05/26/18 05/27/18 05/27/18 10:46 03:57 03:57 WBC 21.4 H RBC 3.10 L Hgb 8.5 L Hct 27.7 L MCV 89.5 MCH 27.5 MCHC 30.8 L RDW 19.7 H Plt Count 520 H MPV 8.4 Neut % (Auto) 83.9 H Lymph % (Auto) 7.2 L [place] % (Auto) 7.8 Eos % (Auto) 0.3 Baso % (Auto) 0.8 Neut # (Auto) 18.0 H Lymph # (Auto) 1.5 [place] # (Auto) 1.7 H Eos # (Auto) 0.1 Baso # (Auto) 0.2 WBC Differential . Differential Comment Auto diff final Sodium 149 H 146 H Potassium 4.1 D 3.8 Chloride 117 H 112 H Carbon Dioxide 26.1 23.8 Anion Gap 6 10 BUN 15 13 Creatinine 0.33 L 0.30 L Estimated GFR Greater than 89 Greater than 89 POC Glucose Random Glucose 118 H 111 H Calcium 7.6 L 7.8 L Phosphorus 1.6 L 2.1 L Magnesium Total Bilirubin 0.3 0.3 AST 44 H 33 ALT 82 H 66 Alkaline Phosphatase 134 H 123 H Total Protein 5.5 L 5.3 L Albumin 2.0 L 2.0 L Vancomycin Trough 05/28/18 05/28/18 05:54 05:54 WBC 24.1 H RBC 3.25 L Hgb 9.0 L Hct 28.5 L MCV 87.6 MCH 27.8 MCHC 31.7 L RDW 19.6 H Plt Count 517 H MPV 7.9 Neut % (Auto) 84.1 H Lymph % (Auto) 7.8 L [place] % (Auto) 7.2 Eos % (Auto) 0.2 Baso % (Auto) 0.7 Neut # (Auto) 20.2 H Lymph # (Auto) 1.9 [place] # (Auto) 1.7 H Eos # (Auto) 0.0 Baso # (Auto) 0.2 WBC Differential . Differential Comment Auto diff final Sodium 143 Potassium 4.1 Chloride 109 H Carbon Dioxide 26.3 Anion Gap 8 BUN 14 Creatinine 0.21 L Estimated GFR Greater than 89 POC Glucose Random Glucose 105 Calcium 7.9 L Phosphorus 2.8 Magnesium Total Bilirubin AST ALT Alkaline Phosphatase Total Protein Albumin Vancomycin Trough Result Diagrams: 05/28/18 05:54 05/28/18 05:54 Microbiology: Microbiology 05/23/18 18:25 Aerobic Blood Culture - Final Blood - Peripheral Staphylococcus epidermidis Anaerobic Blood Culture - Final No growth in 5 days 05/24/18 18:45 Gram Stain - Final Sputum - Nasal Tracheal Aspirate Sputum Culture - Final S. aureus MRSA 05/23/18 18:12 Aerobic Blood Culture - Final Blood - Peripheral No growth in 5 days Anaerobic Blood Culture - Final No growth in 5 days 05/23/18 18:20 Urine Culture - Final Catheterized Urine [place] albicans Imaging: Chest CTA 05/23/18 18:20 CONCLUSION: 1. The study is negative for pulmonary embolism. 2. Right lower lobe consolidation. 3. Enlarged esophagus, similar in external contour compared to prior CT. Chest X-Ray 05/26/18 06:00 CONCLUSION: Aeration right lung base. Improved infiltrate. Left lungs clear. The right lateral clavicle remains fractured. Assessment and Plan - Disease Oriented Problem List (1) UTI (urinary tract infection) (2) Aspiration pneumonia (3) Hypoxia (4) Debility - Symptom Scale (1) Shortness of breath 0-10 Scale: Unable to quantify Pertinent Non-Medical Issues: Psychosocial: Has been with his significant other, Chapis for the past 20 years. Spiritual: [employer]. Legal: Patient does not appear capacitated to make his own healthcare decisions , uncertain if he will regain capacity. DURABLE POWER OF REGULATORY ATTORNEY on chart includes healthcare names Chapis Richardson as healthcare decision maker. Ethical issues impacting care: No known concerns at this time. Important Contacts: * Chapis Richardson, : [phone] Prognosis: Mr. Whelan is an unfortunate 57-year-old male who previously suffered a stroke and has had recent trajectory of decline for the past 6 months. He appears quite debilitated. He remains high risk for further setbacks and decline. Hospice appropriate if goals are comfort oriented. Code Status: Full Code Plan: * Legal Decision Maker:atient does not appear capacitated to make his own healthcare decisions, uncertain if he will regain capacity. DURABLE POWER OF REGULATORY ATTORNEY on chart includes healthcare names Chapis Richardson as healthcare decision maker. * FULL CODE * GOALS: Goals remain aggressive at this time including FULL Code. * SYMPTOMS: Altered mental status: Secondary to infection and prior stroke. On antibiotics and Diflucan. Dyspnea: On oxygen via nasal cannula alternating with simple mask. Nebulizers and antibiotics ordered. * Palliative care will continue to follow throughout hospital course to assist with symptom management further clarification of goals of medical treatment as needed. Attestation Attestation: To help prompt me to consider important information that might be impacting today's encounter and assessment, information from prior notes written by myself or my colleagues may have been "brought forward" into today's note. My signature on this note, however, is an attestation that I personally performed the exam, history, and/or decision-making noted today, and, unless otherwise indicated, the interactions with patient, family, and staff as well as the review of records all occurred today. I also attest that the listed assessment and stated plan reflect my best clinical judgment today based on the combination of historical information, prior notes, and today's exam/ interactions. When time spent is documented, it refers only to time spent today by the signer, or if indicated, combined time spent today by collaborating physician/nurse practitioner.
--- NOTE | 2018-05-28 18:35 | P.CONID ---
History of Present Illness Service: ID Consult date: 05/28/18 Requesting Physician: Evita Dhillon Reason for Consult: pneumonia Primary Care Provider: Pietro Reyna MD History of Present Illness: Pt was seen earlier today in room 519 Pt unable to provide history HIstory obtained from ther nurse 57 yo male sp stroke, non verbal bedridden presented with resp distress from [place] [facility] ago CXR was cw PNA sputum + for MRSA Blood clx coag negative staph 1/ bottles pt on cefepime, vanco, fluconazol Clinically improved not been intubated Review of Systems unobtainable due to mental condition PMFSH - History History Provided By: Patient - Medical History Medical History: Medical History (Last Reviewed 05/28/18 @ 18:28 by Kamla Padilla MD) History of MRSA infection Onset Date: ~05/24/18 Hernia History of stroke Smoker Speech impairment - Surgical History Surgical History: Surgical History (Last Reviewed 05/28/18 @ 18:28 by Kamla Padilla MD) Status post insertion of percutaneous endoscopic gastrostomy (PEG) tube - Family History Family History: Family History (Last Reviewed 05/28/18 @ 18:28 by Kamla Padilla MD) Other Unknown family medical history - Social History I have reviewed the patient's Social History: Yes - Tobacco History Second Hand Smoke Exposure: Yes Smoking Status: Former smoker Tobacco Type: Cigarettes Packs Per Day: 2 Smoking End Date: in past 6 months - Alcohol History How Often Do You Have a Drink Containing Alcohol: 4 or more times a week - Substance Use History Substance History: No History of Abuse - Travel History Recent Travel in the [place] Within the Last 8 Weeks: No Recent Travel Out of the Country Within the Last 8 Weeks: No - Immunization History Tetanus Immunization: Unable to Assess Hx Influenza Vaccine This Season: No Medications and Allergies Active Medications: Active Medications Al Hydroxide/Mg Hydroxide (Milk Of Magnkar Liq) 30 ml PO Q12H PRN PRN Reason: Mild Constipation Albuterol (Albuterol Neb (Prn)) 2.5 mg NEB Q2HR NEB PRN PRN Reason: DYSPNEA Ascorbic Acid (Vitamin C) 500 mg G-TUBE BID [facility] Last Admin: 05/28/18 09:24 Dose: 500 mg Aspirin (Aspirin Chew) 81 mg PO DAILY [facility] Last Admin: 05/28/18 09:24 Dose: 81 mg Atorvastatin Calcium (Lipitor) 40 mg PO DAILY [facility] Last Admin: 05/28/18 09:25 Dose: 40 mg Baclofen (Lioresal) 10 mg G-TUBE BID [facility] Last Admin: 05/28/18 09:25 Dose: 10 mg Bisacodyl (Dulcolax Supp) 10 mg RECTAL DAILY PRN PRN Reason: SEVERE CONSITIPATION Chlorhexidine Gluconate (Chlorhexidine 2% Cloth) 3 pack TOPICAL DAILY@0400 [facility] Stop: 05/29/18 03:59 Last Admin: 05/28/18 06:23 Dose: 3 pack Chlorhexidine Gluconate (Chlorhexidine 2% Cloth) 3 pack TOPICAL DAILY@0400 PRN PRN Reason: Extra cloth needed Stop: 05/29/18 03:59 Diltiazem HCl (Cardizem) 30 mg G-TUBE TID [facility] Last Admin: 05/27/18 17:33 Dose: 30 mg Fluconazole (Diflucan) 200 mg G-TUBE DAILY [facility] Last Admin: 05/28/18 09:24 Dose: 200 mg Guaifenesin (Mucinex Er) 600 mg PO Q12H [facility] Last Admin: 05/28/18 09:24 Dose: 600 mg Heparin Sodium (Porcine) (Heparin Inj) 5,000 units SQ Q8H [facility] Last Admin: 05/28/18 15:04 Dose: 5,000 units Vancomycin HCl 1,250 mg/ (Sodium Chloride) 262.5 mls @ 250 mls/hr IV.SIG Q12H [facility] Last Infusion: 05/28/18 12:37 Dose: Infused L-Arginine/L-Glutamine/Calcium HMB (Jose Packet) 1 packet PO BID [facility] Last Admin: 05/28/18 09:25 Dose: 1 packet Lactulose (Lactulose Liq) 30 ml PO DAILY PRN PRN Reason: SEVERE CONSITIPATION Miscellaneous Information ([facility] Ordered Lab Info) 0 each OTHER ONCE ONE Stop: 05/28/18 23:46 Morphine Sulfate (Morphine Inj) 2 mg IV.PUSH Q2H PRN PRN Reason: PAIN SCALE 6 TO 10 Multivitamins/Minerals (Theragran-M) 1 tab PO DAILY [facility] Last Admin: 05/28/18 09:25 Dose: 1 tab Mupirocin (Bactroban 2% Nasal Oint) 1 applicatio EACH NARE BID [facility] Last Admin: 05/28/18 09:24 Dose: 1 applicatio Ondansetron HCl (Zofran Inj) 4 mg IV.PUSH Q6H PRN PRN Reason: NAUSEA OR VOMITING Pantoprazole Sodium (Protonix Inj) 40 mg IV.PUSH Q24H [facility] Last Admin: 05/28/18 09:24 Dose: 40 mg Pharmacy Profile Note (Vancomycin Consult Pharmacy) 1 each OTHER UNSCH PRN PRN Reason: Pharmacy to dose Povidone Iodine (Betadine 10% Oint) 1 applicatio TOPICAL BID [facility] Last Admin: 05/28/18 09:25 Dose: 1 applicatio Senna/Docusate Sodium (Juli-Colace) 1 tab PO BID [facility] Last Admin: 05/28/18 09:24 Dose: 1 tab Sennosides (Senokot) 17.2 mg PO Q12H PRN PRN Reason: Moderate Constipation Sodium Chloride (Ns Flush) 2 ml IV.FLUSH BID [facility] Last Admin: 05/28/18 09:25 Dose: 2 ml Sodium Chloride (Ns Flush) 2 ml IV.FLUSH PRN PRN PRN Reason: FLUSH AFTER USING IV ACCESS Sodium Chloride (Sodium Chloride 3% Neb) 2 ml NEB Q4HR NEB [facility] Stop: 05/29/18 19:59 Last Admin: 05/28/18 11:32 Dose: 2 ml Sterile Water (Free Water) 200 ml G-TUBE Q6HR [facility] Last Admin: 05/28/18 11:22 Dose: 200 ml Zinc Sulfate (Zinc-220) 220 mg PO DAILY [facility] Last Admin: 05/28/18 09:24 Dose: 220 mg Allergies Allergy/AdvReac Type Severity Reaction Status Date / Time No Known Allergies Allergy Verified 04/25/18 20:36 Home Medications Medication Instructions Recorded Confirmed Type arginine-vitamin C-vitamin E 1 packet FEEDING TUBE BID 05/23/18 05/23/18 History [Arginaid] ascorbic acid (vitamin C) [Vitamin 500 mg FEEDING TUBE BID 05/23/18 05/23/18 History C] baclofen 10 mg FEEDING TUBE BID 05/23/18 05/23/18 History guaifenesin [Mucinex] 600 mg PO Q12H 05/23/18 05/23/18 History levofloxacin [Levaquin] 500 mg FEEDING TUBE DAILY 05/23/18 05/23/18 History multivitamin with minerals 15 ml FEEDING TUBE DAILY 05/23/18 05/23/18 History zinc sulfate 220 mg FEEDING TUBE DAILY 05/23/18 05/23/18 History Exam Vital signs: Vital Signs 05/27/18 19:00 05/27/18 20:00 05/27/18 21:00 Temperature Pulse Rate 102 H 101 H 104 H Respiratory Rate 28 H 30 H 31 H Blood Pressure 91/61 L 97/58 L 85/54 L Pulse Oximetry 97 96 94 L 05/27/18 22:00 05/27/18 23:00 05/27/18 23:54 Temperature Pulse Rate 109 H 108 H 108 H Respiratory Rate 31 H 27 H 24 Blood Pressure 91/64 L 96/63 L Pulse Oximetry 92 L 94 L 05/28/18 00:00 05/28/18 01:00 05/28/18 02:00 Temperature Pulse Rate 109 H 109 H 106 H Respiratory Rate 31 H 32 H 32 H Blood Pressure 92/64 L 94/58 L 98/60 L Pulse Oximetry 95 90 L 97 05/28/18 03:00 05/28/18 04:00 05/28/18 04:08 Temperature Pulse Rate 101 H 101 H 101 H Respiratory Rate 31 H 31 H 30 H Blood Pressure 91/61 L 95/66 L Pulse Oximetry 96 95 05/28/18 05:00 05/28/18 05:24 05/28/18 06:00 Temperature Pulse Rate 105 H 106 H 109 H Respiratory Rate 30 H 29 H 30 H Blood Pressure 107/66 109/76 Pulse Oximetry 94 L 94 L 94 L 05/28/18 07:43 05/28/18 07:46 05/28/18 08:00 Temperature 98.5 F Pulse Rate 109 H 110 H Respiratory Rate 26 H 20 Blood Pressure 120/74 Pulse Oximetry 95 95 05/28/18 11:32 05/28/18 12:00 05/28/18 16:00 Temperature 98.2 F 98.4 F Pulse Rate 108 H 104 H 114 H Respiratory Rate 28 H 18 18 Blood Pressure 111/73 128/73 Pulse Oximetry 96 97 Intake & Output 05/27/18 05/28/18 05/28/18 18:59 06:59 18:59 Intake Total 1070 / 1070 1525.0 / 1525.0 362.5 / 362.5 Output Total 1100 / 1100 200 / 200 Balance -30 / -30 1325.0 / 1325.0 362.5 / 362.5 Intake: IV 100 / 100 625.0 / 625.0 362.5 / 362.5 Maxipime Inj 2,000 MG In NS Inj 100 / 100 100 / 100 100 / 100 100 ML @ 200 mls/hr IV.SIG Q12H [facility] Rx#:[id number] Vancomycin Inj 1,250 MG In NS 525.0 / 525.0 262.5 / 262.5 Inj 250 ML @ 250 mls/hr IV.SIG Q12H [facility] Rx#:[id number] Oral 0 / 0 Tube Feeding 450 / 450 500 / 500 Tube Irrigant 120 / 120 Water Bolus Amount 400 / 400 400 / 400 Output: Urine Amount (Catheter) 1100 / 1100 200 / 200 Straight 1100 / 1100 200 / 200 Other: Date of Last Bowel Movement 05/26/18 05/26/18 05/26/18 # Bowel Movements 0 - Constitutional no acute distress, average body habitus - Routine HEENT Exam Head: Present: normocephalic, atraumatic Eye: Present: EOMI, PERRL ENT: Present: mucous membranes moist, oropharynx clear. Absent: dentition normal (extremely poor ) - Routine Neck Exam Present: supple. Absent: lymphadenopathy - Routine Respiratory Exam Present: CTA bilaterally. Absent: accessory muscle use, decreased breath sounds - Routine Cardiovascular Exam Present: RRR, S1, S2. Absent: murmur, gallop, rubs - Routine Abdominal Exam Present: soft, normoactive bowel sounds. Absent: organomegaly, mass - Routine Extremities Exam Absent: cyanosis, clubbing, edema Comments: contracted - Routine Skin Exam Present: intact, dry, warm. Absent: mottling, petechiae - Routine Neurological Exam Present: alert, sensory deficit, motor deficit. Absent: oriented X3, CN II-XII intact - Routine Psychiatric Exam Present: unable to assess Results - Labs CBC & Chem 7: 05/28/18 05:54 05/28/18 05:54 Labs: Laboratory Results - last 24 hr 05/28/18 05/28/18 05:54 05:54 WBC 24.1 H RBC 3.25 L Hgb 9.0 L Hct 28.5 L MCV 87.6 MCH 27.8 MCHC 31.7 L RDW 19.6 H Plt Count 517 H MPV 7.9 Neut % (Auto) 84.1 H Lymph % (Auto) 7.8 L [place] % (Auto) 7.2 Eos % (Auto) 0.2 Baso % (Auto) 0.7 Neut # (Auto) 20.2 H Lymph # (Auto) 1.9 [place] # (Auto) 1.7 H Eos # (Auto) 0.0 Baso # (Auto) 0.2 WBC Differential . Differential Comment Auto diff final Sodium 143 Potassium 4.1 Chloride 109 H Carbon Dioxide 26.3 Anion Gap 8 BUN 14 Creatinine 0.21 L Estimated GFR Greater than 89 Random Glucose 105 Calcium 7.9 L Phosphorus 2.8 Assessment and Plan - Plan PNA, MRSA Staph epi low grade bacteremia, doubt clin significance candiduria, glabrata - doubt clin significance cont vanco dc cefepime
[2018-05-28] MEDS ORDERED: Influenza (Quadrivalent) Vaccine 0.5 ML Syringe IM ONE (21:00)
[2018-05-29] MEDS ORDERED: Metoprolol Tartrate 25 MG Tablet PO ONE (04:36)
[2018-05-29] MEDS: Heparin - SQ 10,000 UNITS/ML Vial SQ SCH ×3 (05:25→21:47)
[2018-05-29 07:04] LABS: Baso % (Auto) 0.2 % (0.0-2.0); Eos % (Auto) 0.1 % (0.0-4.0); Hematocrit 25.6 % (39.0-51.0); Lymph # (Auto) 1.6 th/mm3 (1.0-4.8); Lymph % (Auto) 6.8 % (9.0-44.0); Mean Corpuscular HGB Conc 31.1 % (32.0-36.0); Mean Corpuscular Hemoglobin 27.4 pg (27.0-34.0); Mean Corpuscular Volume 88.1 fL (80.0-100.0); Mean Platelet Volume 8.2 fL (7.0-11.0); Mono % (Auto) 8.7 % (0.0-8.0); Neut # (Auto) 19.7 th/mm3 (1.8-7.7); Neut % (Auto) 84.2 % (16.0-70.0); Platelet Count 468 th/mm3 (150-450); Red Cell Distribution Width 19.6 % (11.6-17.2); White Blood Count 23.4 th/mm3 (4.0-11.0)
[2018-05-29] MEDS: Pantoprazole Inj 40 MG Vial IV.PUSH SCH (09:05)
[2018-05-29] MEDS: Multivitamin/Minerals Therapeutic Tablet PO SCH (09:06)
[2018-05-29] MEDS: Mupirocin 2% Nasal Oint Topical Syringe EACH NARE SCH ×2 (09:06→21:47)
[2018-05-29] MEDS: Ascorbic Acid 500 MG Tablet G-TUBE SCH ×2 (09:06→21:46)
[2018-05-29] MEDS: Senna/Docusate Sodium 8.6/50 MG Tablet PO SCH ×2 (09:06→21:46)
[2018-05-29] MEDS: guaiFENesin 600 MG ER Tablet PO SCH ×2 (09:06→21:46)
[2018-05-29] MEDS: Baclofen 10 MG Tablet G-TUBE SCH ×2 (09:06→21:46)
--- NOTE | 2018-05-29 11:07 | P.PNIM ---
Subjective Interval history: f/u; pneumonia in no acute distress. still tachycardic. no fever. still with urinary retention- requiring straight catheterization. d/w the RN. Physical Exam Vital signs: Vital Signs 05/28/18 11:32 05/28/18 12:00 05/28/18 16:00 Temperature 98.2 F 98.4 F Pulse Rate 108 H 104 H 114 H Respiratory Rate 28 H 18 18 Blood Pressure 111/73 128/73 Pulse Oximetry 96 97 05/28/18 16:42 05/28/18 19:13 05/28/18 20:00 Temperature 98.8 F 98.6 F Pulse Rate 113 H 113 H 119 H Respiratory Rate 20 20 20 Blood Pressure 128/79 118/73 Pulse Oximetry 96 89 L 05/28/18 22:47 05/29/18 00:00 05/29/18 03:17 Temperature 99.6 F Pulse Rate 110 H 122 H 120 H Respiratory Rate 20 20 18 Blood Pressure 127/71 Pulse Oximetry 94 L 05/29/18 04:00 05/29/18 08:00 Temperature 98.1 F 98.8 F Pulse Rate 121 H 95 H Respiratory Rate 20 16 Blood Pressure 169/86 H 128/82 Pulse Oximetry 97 100 Intake & Output 05/28/18 05/29/18 05/29/18 18:59 06:59 18:59 Intake Total 362.5 / 362.5 262.5 / 262.5 Output Total 800 / 800 Balance -437.5 / -437.5 262.5 / 262.5 Weight 58.4 kg 58.4 kg Intake: IV 362.5 / 362.5 262.5 / 262.5 Maxipime Inj 2,000 MG In NS Inj 100 / 100 100 ML @ 200 mls/hr IV.SIG Q12H [facility] Rx#:[id number] Vancomycin Inj 1,250 MG In NS 262.5 / 262.5 262.5 / 262.5 Inj 250 ML @ 250 mls/hr IV.SIG Q12H [facility] Rx#:[id number] Oral 0 / 0 Output: Urine 800 / 800 Other: # Voids 1 0 Date of Last Bowel Movement 05/26/18 05/28/18 # Bowel Movements 1 Weight On Admission 58.4 kg - Constitutional no acute distress - Routine Respiratory Exam Present: CTA bilaterally - Routine Cardiovascular Exam Present: tachycardia - Routine Abdominal Exam Present: soft - Routine Extremities Exam Comments: no pedal edema. - Routine Neurological Exam Present: alert - Urinary Catheter Management Indwelling Urethral Catheter Cath placed during this visit: no Straight Cath placed during this visit: no Results - Labs CBC & Chem 7: 05/29/18 06:28 05/28/18 05:54 Laboratory Results - last 24 hr 05/28/18 05/29/18 23:30 06:28 WBC 23.4 H RBC 2.90 L Hgb 8.0 L Hct 25.6 L MCV 88.1 MCH 27.4 MCHC 31.1 L RDW 19.6 H Plt Count 468 H MPV 8.2 Neut % (Auto) 84.2 H Lymph % (Auto) 6.8 L [place] % (Auto) 8.7 H Eos % (Auto) 0.1 Baso % (Auto) 0.2 Neut # (Auto) 19.7 H Lymph # (Auto) 1.6 [place] # (Auto) 2.0 H Eos # (Auto) 0.0 Baso # (Auto) 0.0 WBC Differential . Differential Comment Auto diff final Vancomycin Trough 15.2 H Microbiology 05/23/18 18:25 Blood - Peripheral Aerobic Blood Culture - Final Staphylococcus epidermidis 05/23/18 18:25 Blood - Peripheral Anaerobic Blood Culture - Final No growth in 5 days 05/24/18 18:45 Sputum - Nasal Tracheal Aspirate Gram Stain - Final 05/24/18 18:45 Sputum - Nasal Tracheal Aspirate Sputum Culture - Final S. aureus MRSA 05/23/18 18:12 Blood - Peripheral Aerobic Blood Culture - Final No growth in 5 days 05/23/18 18:12 Blood - Peripheral Anaerobic Blood Culture - Final No growth in 5 days Assessment and Plan - Plan Acute respiratory insufficiency MRSA pneumonia UTI Nasal cannula to maintain saturations greater than equal to 92% Incentive spirometry while awake along with neb treatments. CT pulmonary angiogram revealed no signs of central pulmonary embolism. Right lower lobe infiltrate . CXR 05/26 with some improvement sputum culture with MRSA one bottle of blood cultures with gram positive cocci; likely contamination; will follow the final ID. UC with steff continue with antibiotics. ID consult appreciated. History of debilitating CVA Continue aspirin and lipitor. Baclofen 10 mg p.o. twice daily Physical therapy evaluate and treat Essential hypertension tachycardia Hyperlipidemia continue Cardizem continue atorvastatin 40 mg p.o. daily. Hypoalbuminemia Elevated transaminases- improving. continue tube feeding with vital 1.5 goal 55 cc an hour pantoprazole for GI prophylaxis Docusate sodium/senna 1 tablet twice daily for bowel regimen Leukocytosis Normocytic normochromic anemia Thrombocytosis Monitor CBC. Follow trends. Hypokalemia; replaced. Hypernatremia- improved Hypophosphatemia; resolved. Replete electrolytes as needed. Free water was increased to 200 cc every 6 hours. Sacral deep tissue injury Contractions evaluated by plastic surgery; no indication for surgery at this time; continue with wound care. Urinary retention will place bravo cath and f/u as outpatient. Prophylaxis -GI -pantoprazole - -DVT SCD/heparin subcutaneous palliative care following. Discharge Planning: dc planning to SNF in 48-72 hrs if stable.
[2018-05-29] MEDS: Vancomycin Inj 1,250 MG in Sodium Chlor 0.9% Inj 250 ML IV.SIG SCH (12:14)
--- NOTE | 2018-05-29 16:08 | P.PNID ---
Subjective Remarks: doing OK afebrile WBC is 23 K no new issues stable on NC O2 Antibiotics: vancomycin Allergies/Adverse Reactions: Allergies No Known Allergies Allergy (Verified 04/25/18 20:36) Objective Vital Signs 05/28/18 16:00 05/28/18 16:42 05/28/18 19:13 Temperature 98.4 F 98.8 F Pulse Rate 114 H 113 H 113 H Respiratory Rate 18 20 20 Blood Pressure 128/73 128/79 Pulse Oximetry 97 96 05/28/18 20:00 05/28/18 22:47 05/29/18 00:00 Temperature 98.6 F 99.6 F Pulse Rate 119 H 110 H 122 H Respiratory Rate 20 20 20 Blood Pressure 118/73 127/71 Pulse Oximetry 89 L 94 L 05/29/18 03:17 05/29/18 04:00 05/29/18 08:00 Temperature 98.1 F 98.8 F Pulse Rate 120 H 121 H 95 H Respiratory Rate 18 20 16 Blood Pressure 169/86 H 128/82 Pulse Oximetry 97 100 05/29/18 12:00 05/29/18 15:33 Temperature 97.4 F L Pulse Rate 98 H 98 H Respiratory Rate 17 18 Blood Pressure 130/74 Pulse Oximetry 100 100 Intake & Output 05/28/18 05/29/18 05/29/18 18:59 06:59 18:59 Intake Total 362.5 / 362.5 262.5 / 262.5 Output Total 800 / 800 Balance -437.5 / -437.5 262.5 / 262.5 Weight 58.4 kg 58.4 kg Intake: IV 362.5 / 362.5 262.5 / 262.5 Maxipime Inj 2,000 MG In NS Inj 100 / 100 100 ML @ 200 mls/hr IV.SIG Q12H [facility] Rx#:[id number] Vancomycin Inj 1,250 MG In NS 262.5 / 262.5 262.5 / 262.5 Inj 250 ML @ 250 mls/hr IV.SIG Q12H [facility] Rx#:[id number] Oral 0 / 0 Output: Urine 800 / 800 Other: # Voids 1 0 Date of Last Bowel Movement 05/26/18 05/28/18 # Bowel Movements 1 Weight On Admission 58.4 kg 05/23/18 18:25 Blood - Peripheral Aerobic Blood Culture - Final Staphylococcus epidermidis 05/23/18 18:25 Blood - Peripheral Anaerobic Blood Culture - Final No growth in 5 days 05/24/18 18:45 Sputum - Nasal Tracheal Aspirate Gram Stain - Final 05/24/18 18:45 Sputum - Nasal Tracheal Aspirate Sputum Culture - Final S. aureus MRSA 05/23/18 18:12 Blood - Peripheral Aerobic Blood Culture - Final No growth in 5 days 05/23/18 18:12 Blood - Peripheral Anaerobic Blood Culture - Final No growth in 5 days Lab - Hematology Results 05/28/18 05/29/18 05:54 06:28 WBC 24.1 H 23.4 H RBC 3.25 L 2.90 L Hgb 9.0 L 8.0 L Hct 28.5 L 25.6 L MCV 87.6 88.1 MCH 27.8 27.4 MCHC 31.7 L 31.1 L RDW 19.6 H 19.6 H Plt Count 517 H 468 H MPV 7.9 8.2 Neut % (Auto) 84.1 H 84.2 H Lymph % (Auto) 7.8 L 6.8 L [place] % (Auto) 7.2 8.7 H Eos % (Auto) 0.2 0.1 Baso % (Auto) 0.7 0.2 Neut # (Auto) 20.2 H 19.7 H Lymph # (Auto) 1.9 1.6 [place] # (Auto) 1.7 H 2.0 H Eos # (Auto) 0.0 0.0 Baso # (Auto) 0.2 0.0 WBC Differential . . Differential Comment Auto diff final Auto diff final Lab - Chemistry Results 05/28/18 05:54 Sodium 143 Potassium 4.1 Chloride 109 H Carbon Dioxide 26.3 Anion Gap 8 BUN 14 Creatinine 0.21 L Estimated GFR Greater than 89 Random Glucose 105 Calcium 7.9 L Phosphorus 2.8 Imaging: ITS Impressions Chest CTA 05/23/18 18:20 CONCLUSION: 1. The study is negative for pulmonary embolism. 2. Right lower lobe consolidation. 3. Enlarged esophagus, similar in external contour compared to prior CT. Chest X-Ray 05/26/18 06:00 CONCLUSION: Aeration right lung base. Improved infiltrate. Left lungs clear. The right lateral clavicle remains fractured. Physical Exam: GENERAL: NAD SKIN: Warm and dry. HEAD: Atraumatic. Normocephalic. EYES: Pupils equal and round. No scleral icterus. No injection or drainage. ENT: No nasal bleeding or discharge. Mucous membranes pink and moist. NECK: Trachea midline. No JVD. CARDIOVASCULAR: Regular rate and rhythm. no murmur RESPIRATORY: No accessory muscle use. Clear to auscultation. Breath sounds equal bilaterally. GASTROINTESTINAL: Abdomen soft, non-tender, nondistended. Hepatic and splenic margins not palpable. MUSCULOSKELETAL: Extremities without clubbing, cyanosis, or edema. contracted extremeties NEUROLOGICAL: Awake and alert. non verbal, stable neuroplogical deficit PSYCHIATRIC: calm Assessment and Plan - Plan PNA, MRSA Staph epi low grade bacteremia, doubt clin significance candiduria, glabrata - doubt clin significance Persistently elevated WBC ? UTI Persistent PNA dc vanco start zyvox PO repeat UA, C+S repeat CXR, if worse, get CT chest will be off thru Mon 27 Other ID physicians covering for me
--- NOTE | 2018-05-29 20:02 | XR ---
EXAM DATE: 05/29/2018 7:58 PM EST AGE/SEX: 57 years / Male INDICATIONS: Shortness of breath. CLINICAL DATA: This is the patient's subsequent encounter. Patient reports that signs and symptoms h ave been present for 1 week and indicates a pain score of Nonresponsive. MEDICAL/SURGICAL HISTORY: . Gastroesophageal reflux disease. Stroke. Cerebrovascular disease N one. COMPARISON: [facility] [place], CHEST 1V SINGLE AP, 05/26/2018. . FINDINGS: A single AP portable erect view of the chest was obtained. The study is mid inspiratory with crowding of the lung vasculature. Mild hazy opacity remains at the lung bases with no confluent infiltrates. The heart size remains at the upper limits of normal. The right costophrenic angle appears mildly jennifer nted. The bony thorax is intact. Overlying electrocardiogram leads and oxygen tubing are present. CONCLUSION: 1. Mid inspiratory exam with crowding of the lung vasculature. 2. Hazy opacity remains at the lung bases right greater than left with possible small right effusion . Electronically signed by: Amol Oliveros MD 05/29/2018 8:01 PM EST
[2018-05-29] MEDS: Linezolid 600 MG Tablet PO SCH (21:46)
[2018-05-29] MEDS: dilTIAZem 30 MG Tablet G-TUBE SCH (21:46)
[2018-05-29 23:01] LABS: Bacteria,Urine Occasional /hpf; Bilirubin,Urine Negative (Negative); Clarity,Urine Cloudy (Clear); Color,Urine Yellow (Yellw/Straw); Glucose,Urine (UA) Negative (Negative); Leukocyte Esterase,Urine Small (Negative); Mucus,Urine Few /lpf (Occasional); Nitrite,Urine Negative (Negative); Specific Gravity,Urine 1.018 (1.002-1.035)
[2018-05-30] MEDS: Heparin - SQ 10,000 UNITS/ML Vial SQ SCH ×3 (05:13→21:53)
[2018-05-30] MEDS ORDERED: Diatrizoate Meglum/Diatrizoate Sod Liq 9 ML UDC PO ONE (08:00)
[2018-05-30] MEDS: Multivitamin/Minerals Therapeutic Tablet PO SCH (10:25)
[2018-05-30] MEDS: Ascorbic Acid 500 MG Tablet G-TUBE SCH ×2 (10:25→21:53)
[2018-05-30] MEDS: Mupirocin 2% Nasal Oint Topical Syringe EACH NARE SCH ×2 (10:26→21:53)
[2018-05-30] MEDS: Baclofen 10 MG Tablet G-TUBE SCH ×2 (10:27→21:53)
[2018-05-30] MEDS: Linezolid 600 MG Tablet PO SCH ×2 (10:27→21:53)
[2018-05-30] MEDS: Senna/Docusate Sodium 8.6/50 MG Tablet PO SCH ×2 (10:27→21:53)
[2018-05-30] MEDS: dilTIAZem 30 MG Tablet G-TUBE SCH ×3 (10:27→17:26)
[2018-05-30] MEDS: guaiFENesin 600 MG ER Tablet PO SCH ×2 (10:28→21:53)
[2018-05-30] MEDS: Pantoprazole Inj 40 MG Vial IV.PUSH SCH (10:28)
--- NOTE | 2018-05-30 11:24 | P.PNIM ---
Subjective Interval history: f/u; pneumonia in no acute distress. denies pain. had a low grade fever earlier; T max 100. Physical Exam Vital signs: Vital Signs 05/29/18 12:00 05/29/18 15:33 05/29/18 16:00 Temperature 97.4 F L 98.0 F Pulse Rate 92 H 98 H 111 H Respiratory Rate 17 18 18 Blood Pressure 130/74 115/68 Pulse Oximetry 100 100 98 05/29/18 16:08 05/29/18 19:03 05/29/18 20:00 Temperature 97.6 F Pulse Rate 107 H 111 H 112 H Respiratory Rate 16 18 Blood Pressure 119/79 Pulse Oximetry 95 05/30/18 00:00 05/30/18 04:00 05/30/18 08:00 Temperature 97.7 F 100.0 F H 98.8 F Pulse Rate 113 H 109 H 111 H Respiratory Rate 18 18 18 Blood Pressure 131/79 131/69 138/91 H Pulse Oximetry 95 96 96 05/30/18 08:40 Temperature Pulse Rate Respiratory Rate Blood Pressure Pulse Oximetry 95 Intake & Output 05/29/18 05/30/18 05/30/18 18:59 06:59 18:59 Intake Total 262.5 / 262.5 0 / 0 Output Total 400 / 400 650 / 650 Balance -137.5 / -137.5 -650 / -650 Intake: IV 262.5 / 262.5 Vancomycin Inj 1,250 MG In NS 262.5 / 262.5 Inj 250 ML @ 250 mls/hr IV.SIG Q12H [facility] Rx#:[id number] Oral 0 / 0 Output: Urine 400 / 400 650 / 650 Other: Date of Last Bowel Movement 05/29/18 05/30/18 # Bowel Movements 2 # Incontinent Bowel Movements 1 - Constitutional no acute distress - Routine Respiratory Exam Present: CTA bilaterally, diminished air movement (in bases) - Routine Cardiovascular Exam Present: RRR - Routine Abdominal Exam Present: soft - Routine Extremities Exam Comments: no pedal edema. - Routine Neurological Exam Present: alert - Urinary Catheter Management Indwelling Urethral Catheter Cath placed during this visit: yes Reason for continuing: Chronic Urinary Retention Insertion date: 05/29/18 Insertion time: 14:40 Straight Cath placed during this visit: no Reason for continuing: Chronic Urinary Retention Results - Labs CBC & Chem 7: 05/29/18 06:28 05/28/18 05:54 Laboratory Results - last 24 hr 05/29/18 22:34 Urine Color Yellow Urine Clarity Cloudy H Urine pH 6.0 Ur Specific [place] 1.018 Urine Protein 100 H Urine Glucose (UA) Negative Urine Ketones Negative Urine Occult Blood Large H Urine Nitrate Negative Urine Bilirubin Negative Urine Urobilinogen Less than 2 Ur Leukocyte Esterase Small H Urine RBC Urine WBC 77 H Urine Bacteria Occasional H Granular Casts 7 Urine Mucus Few H Micro UA Comment Cath-culture ind Ur Microscopic Review Not Reportable Urine Culture Comments Cath-cult indicated - Imaging Impressions Chest X-Ray 05/29/18 16:10 CONCLUSION: 1. Mid inspiratory exam with crowding of the lung vasculature. 2. Hazy opacity remains at the lung bases right greater than left with possible small right effusion. Assessment and Plan - Plan Acute respiratory insufficiency MRSA pneumonia UTI Nasal cannula to maintain saturations greater than equal to 92% Incentive spirometry while awake along with neb treatments. CT pulmonary angiogram revealed no signs of central pulmonary embolism. Right lower lobe infiltrate . sputum culture with MRSA one bottle of blood cultures with gram positive cocci; likely contamination; will follow the final ID. initial UC with steff/ repeated UC pending. continue with antibiotics; started on oral Zyvox- continue Diflucan. ID consult appreciated. History of debilitating CVA Continue aspirin and lipitor. Baclofen 10 mg p.o. twice daily Physical therapy evaluate and treat Essential hypertension tachycardia Hyperlipidemia continue Cardizem continue atorvastatin 40 mg p.o. daily. Hypoalbuminemia Elevated transaminases- improving. continue tube feeding with vital 1.5 goal 55 cc an hour pantoprazole for GI prophylaxis Docusate sodium/senna 1 tablet twice daily for bowel regimen Leukocytosis Normocytic normochromic anemia Thrombocytosis Monitor CBC. Follow trends. Hypokalemia; replaced. Hypernatremia- improved Hypophosphatemia; resolved. Replete electrolytes as needed. Free water was increased to 200 cc every 6 hours. Sacral deep tissue injury Contractions evaluated by plastic surgery; no indication for surgery at this time; continue with wound care. Urinary retention will place bravo cath and f/u as outpatient. Prophylaxis -GI -pantoprazole - -DVT SCD/heparin subcutaneous palliative care following. Discharge Planning: dc planning; SNF when clinically stable and cleared by ID.
--- NOTE | 2018-05-30 12:40 | P.PNID ---
Subjective Remarks: doing OK febrile to 100.0 F ow no chhange - dw RN no new issues stable on NC O2 Antibiotics: fluc zyvox Allergies/Adverse Reactions: Allergies No Known Allergies Allergy (Verified 04/25/18 20:36) Objective Vital Signs 05/29/18 15:33 05/29/18 16:00 05/29/18 16:08 Temperature 98.0 F Pulse Rate 98 H 111 H 107 H Respiratory Rate 18 18 Blood Pressure 115/68 Pulse Oximetry 100 98 05/29/18 19:03 05/29/18 20:00 05/30/18 00:00 Temperature 97.6 F 97.7 F Pulse Rate 111 H 112 H 113 H Respiratory Rate 16 18 18 Blood Pressure 119/79 131/79 Pulse Oximetry 95 95 05/30/18 04:00 05/30/18 08:00 05/30/18 08:40 Temperature 100.0 F H 98.8 F Pulse Rate 109 H 111 H Respiratory Rate 18 18 Blood Pressure 131/69 138/91 H Pulse Oximetry 96 96 95 Intake & Output 05/29/18 05/30/18 05/30/18 18:59 06:59 18:59 Intake Total 262.5 / 262.5 0 / 0 Output Total 400 / 400 650 / 650 Balance -137.5 / -137.5 -650 / -650 Intake: IV 262.5 / 262.5 Vancomycin Inj 1,250 MG In NS 262.5 / 262.5 Inj 250 ML @ 250 mls/hr IV.SIG Q12H DAMASO Rx#:[id number] Oral 0 / 0 Output: Urine 400 / 400 650 / 650 Other: Date of Last Bowel Movement 05/29/18 05/30/18 # Bowel Movements 2 # Incontinent Bowel Movements 1 05/29/18 22:34 Catheterized Urine Urine Culture - Pending 05/23/18 18:25 Blood - Peripheral Aerobic Blood Culture - Final Staphylococcus epidermidis 05/23/18 18:25 Blood - Peripheral Anaerobic Blood Culture - Final No growth in 5 days 05/24/18 18:45 Sputum - Nasal Tracheal Aspirate Gram Stain - Final 05/24/18 18:45 Sputum - Nasal Tracheal Aspirate Sputum Culture - Final S. aureus MRSA 05/23/18 18:12 Blood - Peripheral Aerobic Blood Culture - Final No growth in 5 days 05/23/18 18:12 Blood - Peripheral Anaerobic Blood Culture - Final No growth in 5 days Lab - Hematology Results 05/29/18 06:28 WBC 23.4 H RBC 2.90 L Hgb 8.0 L Hct 25.6 L MCV 88.1 MCH 27.4 MCHC 31.1 L RDW 19.6 H Plt Count 468 H MPV 8.2 Neut % (Auto) 84.2 H Lymph % (Auto) 6.8 L [place] % (Auto) 8.7 H Eos % (Auto) 0.1 Baso % (Auto) 0.2 Neut # (Auto) 19.7 H Lymph # (Auto) 1.6 [place] # (Auto) 2.0 H Eos # (Auto) 0.0 Baso # (Auto) 0.0 WBC Differential . Differential Comment Auto diff final Imaging: ITS Impressions Chest CTA 05/23/18 18:20 CONCLUSION: 1. The study is negative for pulmonary embolism. 2. Right lower lobe consolidation. 3. Enlarged esophagus, similar in external contour compared to prior CT. Chest X-Ray 05/29/18 16:10 CONCLUSION: 1. Mid inspiratory exam with crowding of the lung vasculature. 2. Hazy opacity remains at the lung bases right greater than left with possible small right effusion. Physical Exam: GENERAL: NAD SKIN: Warm and dry. HEAD: Atraumatic. Normocephalic. EYES: Pupils equal and round. No scleral icterus. No injection or drainage. ENT: No nasal bleeding or discharge. Mucous membranes pink and moist. NECK: Trachea midline. No JVD. CARDIOVASCULAR: Regular rate and rhythm. no murmur RESPIRATORY: No accessory muscle use. Clear to auscultation. Breath sounds decreased bilaterally. POOr effort GASTROINTESTINAL: Abdomen soft, non-tender, nondistended. Hepatic and splenic margins not palpable. MUSCULOSKELETAL: Extremities without clubbing, cyanosis, or edema. contracted extremeties NEUROLOGICAL: Awake and alert. non verbal, stable neuroplogical deficit PSYCHIATRIC: calm Assessment and Plan - Plan PNA, MRSA Staph epi low grade bacteremia, doubt clin significance candiduria, glabrata - doubt clin significance Persistently elevated WBC ? UTI - repeat UA abnormal again Persistent PNA, left with possible small right effusion cont zyvox PO follow up , C+S on urine CT chest, abd/pel dw Dr Perez will be off thru Mon Other ID physicians covering for me
--- NOTE | 2018-05-30 16:16 | CT ---
EXAM DATE: 05/30/2018 3:21 PM EST AGE/SEX: 57 years / Male INDICATIONS: Diffuse abdomen pain. CLINICAL DATA: This is the patient's initial encounter. Patient reports that signs and symptoms have been present for 1 day and indicates a pain score of Nonresponsive. MEDICAL/SURGICAL HISTORY: Stroke. MRSA, hernia None. RADIATION DOSE: 14.58 CTDI (mGy) ; Combined studies COMPARISON: [facility] [place] A[place]OM[place] & [place]ELVIS W/O CONTRAST, 03/24/2018. . TECHNIQUE: Multiple contiguous axial images were obtained through the abdomen. Images were obtained using multiple row detector helical technique. Using automated exposure control and adjustment of the mA and/or kV according to patient size, radiation dose was kept as low as reasonably achievable to o btain optimal diagnostic quality images. DICOM format image data is available electronically for rev iew and comparison. FINDINGS: Noncontrast appearance of the liver, spleen, pancreas and adrenal glands within normal limits. Tiny c ysts and nonobstructing stones are again seen of the kidneys. No obstruction or perceptible acute inflammatory changes are seen of the gastrointestinal tract. Cons iderable stool throughout the colon, especially the rectum. Mild rectal wall thickening and perirecta l fat stranding noted. There is a percutaneously placed gastric feeding tube that appears appropriate ly positioned. No associated fluid collections. Mild atherosclerosis of the abdominal aorta. No aneurysm. There is diffuse body wall edema. Also very mild mesenteric edema. [place] in the urinary bladder. No bladder wall thickening demonstrated. CONCLUSION: 1. Considerable stool throughout the colon and with a possible mild stercoral proctitis/distal colit is. Nonobstructive bowel gas pattern. 2. No acute solid organ abnormality demonstrated. Tiny cysts and nonobstructing stones are again see n of the kidneys. 3. No complication related to the PEG tube demonstrated. 4. Body wall edema/anasarca. Nothing organized seen. Electronically signed by: Shawn Falcon MD 05/30/2018 4:15 PM EST
--- NOTE | 2018-05-30 16:24 | CT ---
EXAM DATE: 05/30/2018 3:23 PM EST AGE/SEX: 57 years / Male INDICATIONS: Pleural effusion. CLINICAL DATA: This is the patient's initial encounter. Patient reports that signs and symptoms have been present for 1 day and indicates a pain score of Nonresponsive. MEDICAL/SURGICAL HISTORY: Stroke. MRSA, hernia None. RADIATION DOSE: 14.58 CTDI (mGy) ; Combined studies COMPARISON: [facility], CTA PULMONARY W CONTRAST W 3D, 05/23/2018. . TECHNIQUE: Multiple contiguous axial images were obtained through the chest without contrast. Image s were obtained in suspended respiration using multiple row detector helical technique. Using automa richardson exposure control and adjustment of the mA and/or kV according to patient size, radiation dose was kept as low as reasonably achievable to obtain optimal diagnostic quality images. DICOM format imag e data is available electronically for review and comparison. FINDINGS: Small bilateral pleural effusions have developed. There is also a small pericardial effusion, slightl y larger than before. Mild dependent atelectasis of both lower lobes. There is some patchy, potential ly infectious infiltrate of the right upper lobe. Previously seen dense consolidation of the right lo wer lobe has largely resolved. Coronary artery calcification present. No lymphadenopathy. Wall thickening of the distal esophagus an d upstream distention present and similar to before. CONCLUSION: 1. Small bilateral pleural effusions, new. 2. Mild dependent atelectasis of both bases. This is actually improved on the right. 3. Early or mild pneumonia of the right upper lobe possible in the proper clinical setting. 4. Small pericardial effusion, slightly larger. 5. Long segment wall thickening of the distal esophagus with upstream distention again noted. Electronically signed by: Shawn Falcon MD 05/30/2018 4:23 PM EST
[2018-05-31] MEDS: Heparin - SQ 10,000 UNITS/ML Vial SQ SCH ×3 (06:12→21:04)
[2018-05-31 08:28] LABS: Baso # (Auto) 0.1 th/mm3 (0.0-0.2); Baso % (Auto) 0.3 % (0.0-2.0); Eos # (Auto) 0.1 th/mm3 (0.0-0.4); Eos % (Auto) 0.4 % (0.0-4.0); Hematocrit 27.2 % (39.0-51.0); Hemoglobin 8.7 gm/dL (13.0-17.0); Lymph # (Auto) 1.3 th/mm3 (1.0-4.8); Lymph % (Auto) 7.4 % (9.0-44.0); Mean Corpuscular HGB Conc 31.8 % (32.0-36.0); Mean Corpuscular Volume 88.1 fL (80.0-100.0); Mono # (Auto) 1.6 th/mm3 (0.0-0.9); Mono % (Auto) 9.2 % (0.0-8.0); Neut # (Auto) 14.4 th/mm3 (1.8-7.7); Neut % (Auto) 82.7 % (16.0-70.0); Platelet Count 537 th/mm3 (150-450); Red Blood Count 3.09 mil/mm3 (4.50-5.90); Red Cell Distribution Width 19.4 % (11.6-17.2); White Blood Count 17.4 th/mm3 (4.0-11.0)
[2018-05-31 08:53] LABS: Anion Gap 9 meq/L (5-15); Blood Urea Nitrogen 15 mg/dL (7-18); Calcium 7.9 mg/dL (8.5-10.1); Carbon Dioxide 27.1 meq/L (21.0-32.0); Chloride 102 meq/L (98-107); Glomerular Filtration Rate Greater Than 89 mL/min (>89); Glucose,Random 112 mg/dL (74-106); Potassium 3.6 meq/L (3.5-5.1); Sodium 138 meq/L (136-145)
--- NOTE | 2018-05-31 09:34 | P.PNIM ---
Subjective Interval history: f/u; pneumonia in no acute distress. afebrile today. d/w the RN and no acute issues over night. Physical Exam Vital signs: Vital Signs 05/30/18 12:00 05/30/18 16:00 05/30/18 20:00 Temperature 98.3 F 97.9 F 98.8 F Pulse Rate 102 H 97 H 94 H Respiratory Rate 18 17 18 Blood Pressure 118/63 115/68 116/66 Pulse Oximetry 99 99 97 05/31/18 00:00 05/31/18 04:00 05/31/18 08:00 Temperature 99.1 F 99.4 F 98.5 F Pulse Rate 97 H 97 H 105 H Respiratory Rate 16 16 14 Blood Pressure 117/59 L 132/63 131/73 Pulse Oximetry 97 97 96 Intake & Output 05/30/18 05/31/18 05/31/18 18:59 06:59 18:59 Output Total 1500 / 1500 1650 / 1650 Balance -1500 / -1500 -1650 / -1650 Weight 57.7 kg Output: Urine 1500 / 1500 1650 / 1650 Other: Date of Last Bowel Movement 05/30/18 05/30/18 # Bowel Movements 1 - Constitutional no acute distress - Routine Respiratory Exam Present: CTA bilaterally - Routine Cardiovascular Exam Present: RRR - Routine Abdominal Exam Present: soft - Routine Extremities Exam Comments: no pedal edema. - Routine Neurological Exam awake. - Urinary Catheter Management Indwelling Urethral Catheter Cath placed during this visit: yes Reason for continuing: Chronic Urinary Retention Insertion date: 05/29/18 Insertion time: 14:40 Straight Cath placed during this visit: no Reason for continuing: Chronic Urinary Retention Results - Labs CBC & Chem 7: 05/31/18 06:30 05/31/18 06:30 Laboratory Results - last 24 hr 05/31/18 05/31/18 06:30 06:30 WBC 17.4 H RBC 3.09 L Hgb 8.7 L Hct 27.2 L MCV 88.1 MCH 28.0 MCHC 31.8 L RDW 19.4 H Plt Count 537 H MPV 8.0 Neut % (Auto) 82.7 H Lymph % (Auto) 7.4 L [place] % (Auto) 9.2 H Eos % (Auto) 0.4 Baso % (Auto) 0.3 Neut # (Auto) 14.4 H Lymph # (Auto) 1.3 [place] # (Auto) 1.6 H Eos # (Auto) 0.1 Baso # (Auto) 0.1 WBC Differential . Differential Comment Auto diff final Sodium 138 Potassium 3.6 Chloride 102 Carbon Dioxide 27.1 Anion Gap 9 BUN 15 Creatinine 0.26 L Estimated GFR Greater than 89 Random Glucose 112 H Calcium 7.9 L Microbiology 05/29/18 22:34 Catheterized Urine Urine Culture - Preliminary No growth. - Imaging Impressions Abdomen/Pelvis CT 05/30/18 00:00 CONCLUSION: 1. Considerable stool throughout the colon and with a possible mild stercoral proctitis/distal colitis. Nonobstructive bowel gas pattern. 2. No acute solid organ abnormality demonstrated. Tiny cysts and nonobstructing stones are again seen of the kidneys. 3. No complication related to the PEG tube demonstrated. 4. Body wall edema/anasarca. Nothing organized seen. Chest CT 05/30/18 08:01 CONCLUSION: 1. Small bilateral pleural effusions, new. 2. Mild dependent atelectasis of both bases. This is actually improved on the right. 3. Early or mild pneumonia of the right upper lobe possible in the proper clinical setting. 4. Small pericardial effusion, slightly larger. 5. Long segment wall thickening of the distal esophagus with upstream distention again noted. Assessment and Plan - Plan Acute respiratory insufficiency-resolved. MRSA pneumonia UTI Nasal cannula to maintain saturations greater than equal to 92% Incentive spirometry while awake along with neb treatments. CT pulmonary angiogram revealed no signs of central pulmonary embolism. Right lower lobe infiltrate . sputum culture with MRSA one bottle of blood cultures with gram positive cocci; likely contamination; will follow the final ID. initial UC with steff/ repeated UC negative; will stop Diflucan. continue with antibiotics; started on oral Zyvox- ID following. History of debilitating CVA Continue aspirin and lipitor. Baclofen 10 mg p.o. twice daily Physical therapy evaluate and treat Essential hypertension tachycardia Hyperlipidemia continue Cardizem continue atorvastatin 40 mg p.o. daily. Hypoalbuminemia Elevated transaminases- improving. constipation possible proctitis/ distal colitis esophageal stricture start on Zosyn continue with laxatives was recently evaluated by GI for esophageal stricture- f/u with GI as outpatient. continue tube feeding with vital 1.5 goal 55 cc an hour pantoprazole for GI prophylaxis Docusate sodium/senna 1 tablet twice daily for bowel regimen Leukocytosis Normocytic normochromic anemia Thrombocytosis Monitor CBC. Follow trends. Hypokalemia; replaced. Hypernatremia- improved Hypophosphatemia; resolved. Replete electrolytes as needed. Free water was increased to 200 cc every 6 hours. Sacral deep tissue injury Contractions evaluated by plastic surgery; no indication for surgery at this time; continue with wound care. Urinary retention continue bravo cath and f/u as outpatient. Prophylaxis -GI -pantoprazole - -DVT SCD/heparin subcutaneous palliative care following. Discharge Planning: dc planning; SNF when clinically stable and cleared by ID.
[2018-05-31] MEDS: Linezolid 600 MG Tablet PO SCH ×2 (09:39→20:46)
[2018-05-31] MEDS: Ascorbic Acid 500 MG Tablet G-TUBE SCH ×2 (09:39→20:46)
[2018-05-31] MEDS: Multivitamin/Minerals Therapeutic Tablet PO SCH (09:39)
[2018-05-31] MEDS: dilTIAZem 30 MG Tablet G-TUBE SCH ×3 (09:39→18:01)
[2018-05-31] MEDS: Baclofen 10 MG Tablet G-TUBE SCH ×2 (09:39→20:46)
[2018-05-31] MEDS: Senna/Docusate Sodium 8.6/50 MG Tablet PO SCH ×2 (09:39→20:46)
[2018-05-31] MEDS: Mupirocin 2% Nasal Oint Topical Syringe EACH NARE SCH ×2 (09:40→20:46)
[2018-05-31] MEDS: guaiFENesin 600 MG ER Tablet PO SCH ×2 (09:53→21:04)
[2018-05-31] MEDS: Pantoprazole Inj 40 MG Vial IV.PUSH SCH (09:53)
[2018-05-31] MEDS: Piperacil/Tazo 3.375 GM Premix 50 ML IV.SIG SCH ×2 (10:40→18:01)
--- NOTE | 2018-05-31 12:04 | P.PNID ---
Subjective Remarks: ID coverage 57 yo male sp stroke, non verbal bedridden presented with resp distress from half-way 5 days ago CXR was cw PNA sputum + for MRSA Blood clx coag negative staph 1/4 bottles pt on cefepime, vanco, fluconazol Clinically improved not been intubated Notes reviewed Temps better today Low grade yesterday WBC down to 17K CT chest noted CT A/P noted Repeat UC negative Started on Zosyn today Antibiotics: Zosyn zyvox Past Medical History: Hernia History of stroke Smoker Speech impairment PEG Allergies/Adverse Reactions: Allergies No Known Allergies Allergy (Verified 04/25/18 20:36) Objective Vital Signs 05/30/18 16:00 05/30/18 20:00 05/31/18 00:00 Temperature 97.9 F 98.8 F 99.1 F Pulse Rate 97 H 94 H 97 H Respiratory Rate 17 18 16 Blood Pressure 115/68 116/66 117/59 L Pulse Oximetry 99 97 97 05/31/18 04:00 05/31/18 08:00 05/31/18 09:35 Temperature 99.4 F 98.5 F Pulse Rate 97 H 105 H Respiratory Rate 16 14 Blood Pressure 132/63 131/73 Pulse Oximetry 97 96 96 05/31/18 09:36 Temperature Pulse Rate 96 H Respiratory Rate 20 Blood Pressure Pulse Oximetry Intake & Output 05/30/18 05/31/18 05/31/18 18:59 06:59 18:59 Intake Total 50 / 50 Output Total 1500 / 1500 1650 / 1650 Balance -1500 / -1500 -1650 / -1650 50 / 50 Weight 57.7 kg Intake: IV 50 / 50 Zosyn 3.375 GM Premix 50 ML @ 50 / 50 100 mls/hr IV.SIG Q8H DAMASO Rx#: [id number] Output: Urine 1500 / 1500 1650 / 1650 Other: Date of Last Bowel Movement 05/30/18 05/30/18 # Bowel Movements 1 05/29/18 22:34 Catheterized Urine Urine Culture - Final No growth in 48 hours 05/23/18 18:25 Blood - Peripheral Aerobic Blood Culture - Final Staphylococcus epidermidis 05/23/18 18:25 Blood - Peripheral Anaerobic Blood Culture - Final No growth in 5 days 05/24/18 18:45 Sputum - Nasal Tracheal Aspirate Gram Stain - Final 05/24/18 18:45 Sputum - Nasal Tracheal Aspirate Sputum Culture - Final S. aureus MRSA 05/23/18 18:12 Blood - Peripheral Aerobic Blood Culture - Final No growth in 5 days 05/23/18 18:12 Blood - Peripheral Anaerobic Blood Culture - Final No growth in 5 days Lab - Hematology Results 05/31/18 06:30 WBC 17.4 H RBC 3.09 L Hgb 8.7 L Hct 27.2 L MCV 88.1 MCH 28.0 MCHC 31.8 L RDW 19.4 H Plt Count 537 H MPV 8.0 Neut % (Auto) 82.7 H Lymph % (Auto) 7.4 L [place] % (Auto) 9.2 H Eos % (Auto) 0.4 Baso % (Auto) 0.3 Neut # (Auto) 14.4 H Lymph # (Auto) 1.3 [place] # (Auto) 1.6 H Eos # (Auto) 0.1 Baso # (Auto) 0.1 WBC Differential . Differential Comment Auto diff final Lab - Chemistry Results 05/31/18 06:30 Sodium 138 Potassium 3.6 Chloride 102 Carbon Dioxide 27.1 Anion Gap 9 BUN 15 Creatinine 0.26 L Estimated GFR Greater than 89 Random Glucose 112 H Calcium 7.9 L Imaging: ITS Impressions Chest CTA 05/23/18 18:20 CONCLUSION: 1. The study is negative for pulmonary embolism. 2. Right lower lobe consolidation. 3. Enlarged esophagus, similar in external contour compared to prior CT. Chest X-Ray 05/29/18 16:10 CONCLUSION: 1. Mid inspiratory exam with crowding of the lung vasculature. 2. Hazy opacity remains at the lung bases right greater than left with possible small right effusion. Abdomen/Pelvis CT 05/30/18 00:00 CONCLUSION: 1. Considerable stool throughout the colon and with a possible mild stercoral proctitis/distal colitis. Nonobstructive bowel gas pattern. 2. No acute solid organ abnormality demonstrated. Tiny cysts and nonobstructing stones are again seen of the kidneys. 3. No complication related to the PEG tube demonstrated. 4. Body wall edema/anasarca. Nothing organized seen. Chest CT 05/30/18 08:01 CONCLUSION: 1. Small bilateral pleural effusions, new. 2. Mild dependent atelectasis of both bases. This is actually improved on the right. 3. Early or mild pneumonia of the right upper lobe possible in the proper clinical setting. 4. Small pericardial effusion, slightly larger. 5. Long segment wall thickening of the distal esophagus with upstream distention again noted. Physical Exam: GENERAL: NAD. Awake and alert, responding SKIN: Warm and dry. HEAD: Atraumatic. Normocephalic. EYES: Pupils equal and round. No scleral icterus. No injection or drainage. ENT: No nasal bleeding or discharge. Mucous membranes pink and moist. NECK: Trachea midline. No JVD. CARDIOVASCULAR: Regular rate and rhythm. no murmur RESPIRATORY: Clear to auscultation. Breath sounds decreased bilaterally. GASTROINTESTINAL: Abdomen soft, non-tender, nondistended. MUSCULOSKELETAL: Extremities without clubbing, cyanosis, or edema. contracted extremeties NEUROLOGICAL: Awake and alert, stable neurological deficit PSYCHIATRIC: calm Assessment and Plan - Plan Impression PNA, MRSA Staph epi low grade bacteremia, doubt clin significance candiduria, glabrata - doubt clin significance Persistently elevated WBC ? UTI - repeat UA abnormal again Persistent PNA, left with possible small right effusion Leukocytosis Abnormal colon on CT - no diarrhea, has a lot of stool, abd exam benign Recommendation cont zyvox PO Zosyn has been started Follow temps Follow cultures Monitor progress
[2018-06-01] MEDS: Piperacil/Tazo 3.375 GM Premix 50 ML IV.SIG SCH ×3 (02:40→17:04)
[2018-06-01 06:18] LABS: Baso % (Auto) 0.3 % (0.0-2.0); Eos % (Auto) 0.2 % (0.0-4.0); Hematocrit 26.3 % (39.0-51.0); Hemoglobin 8.1 gm/dL (13.0-17.0); Lymph # (Auto) 1.3 th/mm3 (1.0-4.8); Lymph % (Auto) 8.3 % (9.0-44.0); Mean Corpuscular Hemoglobin 27.6 pg (27.0-34.0); Mean Corpuscular Volume 89.4 fL (80.0-100.0); Mono # (Auto) 1.3 th/mm3 (0.0-0.9); Mono % (Auto) 8.2 % (0.0-8.0); Platelet Count 520 th/mm3 (150-450); Red Blood Count 2.94 mil/mm3 (4.50-5.90); Red Cell Distribution Width 19.5 % (11.6-17.2); White Blood Count 15.6 th/mm3 (4.0-11.0)
[2018-06-01 06:25] LABS: Mean Corpuscular HGB Conc 30.9 % (32.0-36.0)
[2018-06-01] MEDS: Heparin - SQ 10,000 UNITS/ML Vial SQ SCH ×3 (06:32→22:17)
[2018-06-01] MEDS: Baclofen 10 MG Tablet G-TUBE SCH ×2 (08:18→22:16)
[2018-06-01] MEDS: dilTIAZem 30 MG Tablet G-TUBE SCH ×3 (08:18→17:04)
[2018-06-01] MEDS: Linezolid 600 MG Tablet PO SCH ×2 (08:19→22:16)
[2018-06-01] MEDS: Ascorbic Acid 500 MG Tablet G-TUBE SCH ×2 (08:19→22:16)
[2018-06-01] MEDS: Multivitamin/Minerals Therapeutic Tablet PO SCH (08:19)
[2018-06-01] MEDS: Mupirocin 2% Nasal Oint Topical Syringe EACH NARE SCH ×2 (08:19→22:16)
[2018-06-01] MEDS: Senna/Docusate Sodium 8.6/50 MG Tablet PO SCH ×2 (08:20→22:16)
[2018-06-01] MEDS: guaiFENesin 600 MG ER Tablet PO SCH ×2 (09:02→22:16)
[2018-06-01] MEDS: Pantoprazole Inj 40 MG Vial IV.PUSH SCH (09:02)
--- NOTE | 2018-06-01 10:46 | P.PN ---
Subjective Interval history: This is a pleasant 57 y/o Male with MRSA Pneumonia, Staph epi low grade bacteremia, Ivett glabrata, Persistent Leukocytosis, UTI, Persistent Left Pneumonia, with possible right pleural effusion, as per ID to continue Zyvox by mouth, Zosyn started. not yet cleared for discharge. no nausea, vomit or diarrhea. Physical Exam Vital signs: Vital Signs 05/31/18 12:00 05/31/18 16:00 05/31/18 16:10 Temperature 97.5 F L 97.7 F Pulse Rate 102 H 100 H 101 H Respiratory Rate 14 16 Blood Pressure 120/68 111/68 Pulse Oximetry 94 L 95 05/31/18 20:00 05/31/18 22:06 06/01/18 00:00 Temperature 99.0 F 97.7 F Pulse Rate 101 H 106 H Respiratory Rate 18 18 Blood Pressure 121/71 135/66 Pulse Oximetry 95 92 L 95 06/01/18 04:00 06/01/18 08:00 Temperature 98.3 F 98.9 F Pulse Rate 70 105 H Respiratory Rate 18 20 Blood Pressure 135/80 120/79 Pulse Oximetry 98 98 Intake & Output 05/31/18 06/01/18 06/01/18 18:59 06:59 18:59 Intake Total 1680 / 1680 100 / 100 50 / 50 Output Total 900 / 900 950 / 950 Balance 780 / 780 -850 / -850 50 / 50 Weight 57.9 kg Intake: IV 50 / 50 100 / 100 50 / 50 Zosyn 3.375 GM Premix 50 ML @ 50 / 50 100 / 100 50 / 50 100 mls/hr IV.SIG Q8H [facility] Rx#: [id number] Oral 720 / 720 Tube Feeding 510 / 510 Water Bolus Amount 400 / 400 Output: Urine 600 / 600 Urine Amount (Catheter) 300 / 300 950 / 950 Indwelling Urethral Catheter 300 / 300 950 / 950 Other: Date of Last Bowel Movement 06/01/18 # Bowel Movements 1 # Incontinent Bowel Movements 1 Narrative: GENERAL: Well-developed patient, in no apparent distress. CARDIOVASCULAR: Regular rate and rhythm without murmurs, gallops, or rubs. RESPIRATORY: Clear to auscultation. Breath sounds equal bilaterally. No wheezes , rales, or rhonchi. GASTROINTESTINAL: Abdomen soft, non-tender, nondistended. Normal active bowel sounds MUSCULOSKELETAL: Extremities without clubbing, cyanosis, or edema. NEURO: Alert & Oriented x4 to person, place, time, situation. Moves all ext x4 - Urinary Catheter Management Indwelling Urethral Catheter Cath placed during this visit: yes Reason for continuing: Chronic Urinary Retention Insertion date: 05/29/18 Insertion time: 14:40 Straight Cath placed during this visit: no Reason for continuing: Chronic Urinary Retention Results - Labs CBC & Chem 7: 06/01/18 03:54 05/31/18 06:30 Laboratory Results - last 24 hr 06/01/18 03:54 WBC 15.6 H RBC 2.94 L Hgb 8.1 L Hct 26.3 L MCV 89.4 MCH 27.6 MCHC 30.9 L RDW 19.5 H Plt Count 520 H MPV 8.0 Neut % (Auto) 83.0 H Lymph % (Auto) 8.3 L [place] % (Auto) 8.2 H Eos % (Auto) 0.2 Baso % (Auto) 0.3 Neut # (Auto) 13.0 H Lymph # (Auto) 1.3 [place] # (Auto) 1.3 H Eos # (Auto) 0.0 Baso # (Auto) 0.0 WBC Differential . Differential Comment Auto diff final Microbiology 05/29/18 22:34 Catheterized Urine Urine Culture - Final No growth in 48 hours - Imaging Chest CTA 05/23/18 18:20 CONCLUSION: 1. The study is negative for pulmonary embolism. 2. Right lower lobe consolidation. 3. Enlarged esophagus, similar in external contour compared to prior CT. Chest X-Ray 05/29/18 16:10 CONCLUSION: 1. Mid inspiratory exam with crowding of the lung vasculature. 2. Hazy opacity remains at the lung bases right greater than left with possible small right effusion. Abdomen/Pelvis CT 05/30/18 00:00 CONCLUSION: 1. Considerable stool throughout the colon and with a possible mild stercoral proctitis/distal colitis. Nonobstructive bowel gas pattern. 2. No acute solid organ abnormality demonstrated. Tiny cysts and nonobstructing stones are again seen of the kidneys. 3. No complication related to the PEG tube demonstrated. 4. Body wall edema/anasarca. Nothing organized seen. Chest CT 05/30/18 08:01 CONCLUSION: 1. Small bilateral pleural effusions, new. 2. Mild dependent atelectasis of both bases. This is actually improved on the right. 3. Early or mild pneumonia of the right upper lobe possible in the proper clinical setting. 4. Small pericardial effusion, slightly larger. 5. Long segment wall thickening of the distal esophagus with upstream distention again noted. - Procedures None Assessment and Plan - Plan Acute respiratory insufficiency-resolved. MRSA pneumonia UTI Nasal cannula to maintain saturations greater than equal to 92% Incentive spirometry while awake along with neb treatments. CT pulmonary angiogram revealed no signs of central pulmonary embolism. Right lower lobe infiltrate . sputum culture with MRSA one bottle of blood cultures with gram positive cocci; likely contamination; will follow the final ID. initial UC with ivett/ repeated UC negative; will stop Diflucan. as per ID specialist With diagnosis of MRSA Pneumonia, Staph epi low grade bacteremia, Ivett glabrata, Persistent Leukocytosis, UTI, Persistent Left Pneumonia, with possible right pleural effusion, as per ID to continue Zyvox by mouth, Zosyn started. not yet cleared for discharge. no nausea, vomit or diarrhea. History of debilitating CVA Continue aspirin and lipitor. Baclofen 10 mg p.o. twice daily Physical therapy evaluate and treat Essential hypertension tachycardia Hyperlipidemia continue Cardizem continue atorvastatin 40 mg p.o. daily. Hypoalbuminemia Elevated transaminases- improving. constipation possible proctitis/ distal colitis esophageal stricture start on Zosyn continue with laxatives was recently evaluated by GI for esophageal stricture- f/u with GI as outpatient. continue tube feeding with vital 1.5 goal 55 cc an hour pantoprazole for GI prophylaxis Docusate sodium/senna 1 tablet twice daily for bowel regimen Electrolyte derangement today Hypokalemia 3.6 giving 40 meq of Potassium Leukocytosis Normocytic normochromic anemia Thrombocytosis Monitor CBC. Follow trends. Sacral deep tissue injury Contractions evaluated by plastic surgery; no indication for surgery at this time; continue with wound care. Urinary retention continue bravo cath and f/u as outpatient. Prophylaxis -GI -pantoprazole - -DVT SCD/heparin subcutaneous palliative care following. Discharge Planning: dc planning; SNF when clinically stable and cleared by ID. Code Status: Full code. Discussed Condition With: Patient and Nurse Miss Mack Discharge Planning: Once cleared by ID specialist.
[2018-06-02] MEDS: Piperacil/Tazo 3.375 GM Premix 50 ML IV.SIG SCH ×3 (03:00→17:22)
[2018-06-02] MEDS: Heparin - SQ 10,000 UNITS/ML Vial SQ SCH ×3 (05:08→21:40)
--- NOTE | 2018-06-02 09:01 | P.PN ---
Subjective Interval history: This is a pleasant 57 y/o Male with MRSA Pneumonia, Staph epi low grade bacteremia, Ivett glabrata, Persistent Leukocytosis, UTI, Persistent Left Pneumonia, with possible right pleural effusion, as per ID to continue Zyvox by mouth, Zosyn started. not yet cleared for discharge. 06/02: Stable in his bedroom, discussed with nurse miss Garcia no complaint, no nausea, vomit or diarrhea. Physical Exam Vital signs: Vital Signs 06/01/18 12:00 06/01/18 16:00 06/01/18 19:59 Temperature 98.1 F 98.7 F Pulse Rate 100 H 98 H Respiratory Rate 18 18 Blood Pressure 107/56 L 107/63 Pulse Oximetry 98 97 99 06/01/18 20:00 06/01/18 23:57 06/02/18 00:00 Temperature 99.5 F 98.4 F Pulse Rate 100 H 97 H 102 H Respiratory Rate 16 16 Blood Pressure 109/67 106/74 Pulse Oximetry 95 98 06/02/18 04:00 Temperature 98.3 F Pulse Rate 103 H Respiratory Rate 14 Blood Pressure 122/78 Pulse Oximetry 95 Intake & Output 06/01/18 06/02/18 06/02/18 18:59 06:59 18:59 Intake Total 100 / 100 50 / 50 Output Total 1999 Balance 100 / 100 -1950 / -1950 Weight 55.7 kg Intake: IV 100 / 100 50 / 50 Zosyn 3.375 GM Premix 50 ML @ 100 / 100 50 / 50 100 mls/hr IV.SIG Q8H [facility] Rx#: [id number] Oral 0 / 0 Output: Urine 1999 Other: Date of Last Bowel Movement 06/01/18 # Bowel Movements 1 Narrative: GENERAL: Well-developed patient, in no apparent distress. CARDIOVASCULAR: Regular rate and rhythm without murmurs, gallops, or rubs. RESPIRATORY: Clear to auscultation. Breath sounds equal bilaterally. No wheezes , rales, or rhonchi. GASTROINTESTINAL: Abdomen soft, non-tender, nondistended. Normal active bowel sounds MUSCULOSKELETAL: Extremities without clubbing, cyanosis, or edema. NEURO: Alert & Oriented x4 to person, place, time, situation. Moves all ext x4 - Urinary Catheter Management Indwelling Urethral Catheter Cath placed during this visit: yes Reason for continuing: Chronic Urinary Retention Insertion date: 05/29/18 Insertion time: 14:40 Straight Cath placed during this visit: no Reason for continuing: Chronic Urinary Retention Results - Labs CBC & Chem 7: 06/01/18 03:54 05/31/18 06:30 - Imaging Chest CTA 05/23/18 18:20 CONCLUSION: 1. The study is negative for pulmonary embolism. 2. Right lower lobe consolidation. 3. Enlarged esophagus, similar in external contour compared to prior CT. Chest X-Ray 05/29/18 16:10 CONCLUSION: 1. Mid inspiratory exam with crowding of the lung vasculature. 2. Hazy opacity remains at the lung bases right greater than left with possible small right effusion. Abdomen/Pelvis CT 05/30/18 00:00 CONCLUSION: 1. Considerable stool throughout the colon and with a possible mild stercoral proctitis/distal colitis. Nonobstructive bowel gas pattern. 2. No acute solid organ abnormality demonstrated. Tiny cysts and nonobstructing stones are again seen of the kidneys. 3. No complication related to the PEG tube demonstrated. 4. Body wall edema/anasarca. Nothing organized seen. Chest CT 05/30/18 08:01 CONCLUSION: 1. Small bilateral pleural effusions, new. 2. Mild dependent atelectasis of both bases. This is actually improved on the right. 3. Early or mild pneumonia of the right upper lobe possible in the proper clinical setting. 4. Small pericardial effusion, slightly larger. 5. Long segment wall thickening of the distal esophagus with upstream distention again noted. - Procedures None Assessment and Plan - Plan Acute respiratory insufficiency-resolved. MRSA pneumonia UTI Nasal cannula to maintain saturations greater than equal to 92% Incentive spirometry while awake along with neb treatments. CT pulmonary angiogram revealed no signs of central pulmonary embolism. Right lower lobe infiltrate . sputum culture with MRSA one bottle of blood cultures with gram positive cocci; likely contamination; will follow the final ID. initial UC with ivett/ repeated UC negative; will stop Diflucan. as per ID specialist With diagnosis of MRSA Pneumonia, Staph epi low grade bacteremia, Ivett glabrata, Persistent Leukocytosis, UTI, Persistent Left Pneumonia, with possible right pleural effusion, as per ID to continue Zyvox by mouth, Zosyn started. not yet cleared for discharge. History of debilitating CVA Continue aspirin and lipitor. Baclofen 10 mg p.o. twice daily Physical therapy evaluate and treat Essential hypertension tachycardia Hyperlipidemia continue Cardizem continue atorvastatin 40 mg p.o. daily. Hypoalbuminemia Elevated transaminases- improving. constipation possible proctitis/ distal colitis esophageal stricture start on Zosyn continue with laxatives was recently evaluated by GI for esophageal stricture- f/u with GI as outpatient. continue tube feeding with vital 1.5 goal 55 cc an hour pantoprazole for GI prophylaxis Docusate sodium/senna 1 tablet twice daily for bowel regimen Electrolyte derangement today Hypokalemia 3.6 giving 40 meq of Potassium Leukocytosis Normocytic normochromic anemia Thrombocytosis Monitor CBC. Follow trends. Sacral deep tissue injury Contractions evaluated by plastic surgery; no indication for surgery at this time; continue with wound care. Urinary retention continue Chapin cath and f/u as outpatient. Prophylaxis -GI -pantoprazole - -DVT SCD/heparin subcutaneous No changes to anterior assessment. Code Status: Full code. Discussed Condition With: Patient and Nurse Miss Garcia Discharge Planning: Once cleared by ID specialist.
[2018-06-02] MEDS: Mupirocin 2% Nasal Oint Topical Syringe EACH NARE SCH ×2 (09:29→21:41)
[2018-06-02] MEDS: dilTIAZem 30 MG Tablet G-TUBE SCH ×3 (09:29→17:22)
[2018-06-02] MEDS: Baclofen 10 MG Tablet G-TUBE SCH ×2 (09:29→22:48)
[2018-06-02] MEDS: guaiFENesin 600 MG ER Tablet PO SCH ×2 (09:29→22:48)
[2018-06-02] MEDS: Pantoprazole Inj 40 MG Vial IV.PUSH SCH (09:30)
[2018-06-02] MEDS: Senna/Docusate Sodium 8.6/50 MG Tablet PO SCH ×2 (09:30→22:48)
[2018-06-02] MEDS: Multivitamin/Minerals Therapeutic Tablet PO SCH (09:30)
[2018-06-02] MEDS: Linezolid 600 MG Tablet PO SCH ×2 (09:30→22:48)
[2018-06-02] MEDS: Ascorbic Acid 500 MG Tablet G-TUBE SCH ×2 (09:30→22:48)
[2018-06-03] MEDS: Piperacil/Tazo 3.375 GM Premix 50 ML IV.SIG SCH ×3 (01:24→17:22)
[2018-06-03] MEDS: Heparin - SQ 10,000 UNITS/ML Vial SQ SCH ×3 (05:11→21:45)
[2018-06-03] MEDS: Mupirocin 2% Nasal Oint Topical Syringe EACH NARE SCH ×2 (10:47→21:44)
[2018-06-03] MEDS: Baclofen 10 MG Tablet G-TUBE SCH ×2 (10:48→21:44)
[2018-06-03] MEDS: dilTIAZem 30 MG Tablet G-TUBE SCH ×3 (10:48→17:22)
[2018-06-03] MEDS: Ascorbic Acid 500 MG Tablet G-TUBE SCH ×2 (10:49→21:44)
[2018-06-03] MEDS: Linezolid 600 MG Tablet PO SCH ×2 (10:49→21:44)
[2018-06-03] MEDS: Pantoprazole Inj 40 MG Vial IV.PUSH SCH (10:49)
[2018-06-03] MEDS: Senna/Docusate Sodium 8.6/50 MG Tablet PO SCH ×2 (10:49→21:44)
[2018-06-03] MEDS: Multivitamin/Minerals Therapeutic Tablet PO SCH (10:49)
[2018-06-03] MEDS: guaiFENesin 600 MG ER Tablet PO SCH ×2 (10:49→21:44)
--- NOTE | 2018-06-03 11:40 | P.PN ---
Subjective Interval history: This is a pleasant 57 y/o Male with MRSA Pneumonia, Staph epi low grade bacteremia, Ivett glabrata, Persistent Leukocytosis, UTI, Persistent Left Pneumonia, with possible right pleural effusion, as per ID to continue Zyvox by mouth, Zosyn started. not yet cleared for discharge. 06/03: Stable in his bedroom, no nausea, vomit or diarrhea, today has bilateral harsh sounds, he is been discussed with nurse Miss Garcia during the night was suspected probable PEG tube dislodge. awaiting for CT abdomen and Pelvis. Physical Exam Vital signs: Vital Signs 06/02/18 12:00 06/02/18 16:00 06/02/18 20:00 Temperature 98.4 F 98.7 F 98.2 F Pulse Rate 107 H 107 H 101 H Respiratory Rate 19 18 19 Blood Pressure 121/77 132/62 122/70 Pulse Oximetry 94 L 94 L 100 06/03/18 00:00 06/03/18 00:08 06/03/18 04:00 Temperature 97.9 F 97.2 F L Pulse Rate 111 H 112 H 111 H Respiratory Rate 18 17 Blood Pressure 119/74 Pulse Oximetry 99 97 06/03/18 08:00 Temperature 99.0 F Pulse Rate 112 H Respiratory Rate 18 Blood Pressure 135/85 Pulse Oximetry 93 L Intake & Output 06/02/18 06/03/18 06/03/18 18:59 06:59 18:59 Intake Total 100 / 100 50 / 50 Output Total 402 / 402 Balance 100 / 100 -352 / -352 Weight 56.7 kg Intake: IV 100 / 100 50 / 50 Zosyn 3.375 GM Premix 50 ML @ 100 / 100 50 / 50 100 mls/hr IV.SIG Q8H [facility] Rx#: [id number] Output: Urine 400 / 400 Stool 2 / 2 Other: Date of Last Bowel Movement 06/02/18 06/03/18 06/03/18 Narrative: GENERAL: No acute distress, significant atrophy bilateral lower extremities. SKIN: Focused skin assessment warm/dry. HEAD: Atraumatic. Normocephalic. ENT: No nasal bleeding or discharge. Mucous membranes pink and moist. NECK: Trachea midline. No JVD. CARDIOVASCULAR: Regular rhythm with tachycardia no murmur appreciated. RESPIRATORY: Decreased breath sounds bilateral, NO wheezing, has some Rhonchi bilateral. GASTROINTESTINAL: Abdomen soft, non-tender, PEG in place. NEUROLOGICAL: Alert and Awake, only follow certain commands and able to answer yes or no. PSYCHIATRIC: Unable to properly assess. - Urinary Catheter Management Indwelling Urethral Catheter Cath placed during this visit: yes Reason for continuing: Chronic Urinary Retention Insertion date: 05/29/18 Insertion time: 14:40 Straight Cath placed during this visit: no Reason for continuing: Chronic Urinary Retention Results - Labs CBC & Chem 7: 06/01/18 03:54 05/31/18 06:30 - Imaging Chest CTA 05/23/18 18:20 CONCLUSION: 1. The study is negative for pulmonary embolism. 2. Right lower lobe consolidation. 3. Enlarged esophagus, similar in external contour compared to prior CT. Chest X-Ray 05/29/18 16:10 CONCLUSION: 1. Mid inspiratory exam with crowding of the lung vasculature. 2. Hazy opacity remains at the lung bases right greater than left with possible small right effusion. Abdomen/Pelvis CT 05/30/18 00:00 CONCLUSION: 1. Considerable stool throughout the colon and with a possible mild stercoral proctitis/distal colitis. Nonobstructive bowel gas pattern. 2. No acute solid organ abnormality demonstrated. Tiny cysts and nonobstructing stones are again seen of the kidneys. 3. No complication related to the PEG tube demonstrated. 4. Body wall edema/anasarca. Nothing organized seen. Chest CT 05/30/18 08:01 CONCLUSION: 1. Small bilateral pleural effusions, new. 2. Mild dependent atelectasis of both bases. This is actually improved on the right. 3. Early or mild pneumonia of the right upper lobe possible in the proper clinical setting. 4. Small pericardial effusion, slightly larger. 5. Long segment wall thickening of the distal esophagus with upstream distention again noted. - Procedures None Assessment and Plan - Plan Acute respiratory insufficiency-resolved. MRSA pneumonia UTI Nasal cannula to maintain saturations greater than equal to 92% Incentive spirometry while awake along with neb treatments. CT pulmonary angiogram revealed no signs of central pulmonary embolism. Right lower lobe infiltrate . sputum culture with MRSA one bottle of blood cultures with gram positive cocci; likely contamination; will follow the final ID. initial UC with ivett/ repeated UC negative; will stop Diflucan. as per ID specialist With diagnosis of MRSA Pneumonia, Staph epi low grade bacteremia, Ivett glabrata, Persistent Leukocytosis, UTI, Persistent Left Pneumonia, with possible right pleural effusion, as per ID to continue Zyvox by mouth, Zosyn started. not yet cleared for discharge. History of debilitating CVA Continue aspirin and lipitor. Baclofen 10 mg p.o. twice daily Physical therapy evaluate and treat Essential hypertension tachycardia Hyperlipidemia continue Cardizem continue atorvastatin 40 mg p.o. daily. Hypoalbuminemia Elevated transaminases- improving. constipation possible proctitis/ distal colitis esophageal stricture start on Zosyn continue with laxatives was recently evaluated by GI for esophageal stricture- f/u with GI as outpatient. continue tube feeding with vital 1.5 goal 55 cc an hour pantoprazole for GI prophylaxis Docusate sodium/senna 1 tablet twice daily for bowel regimen Electrolyte derangement replaced. Leukocytosis Normocytic normochromic anemia Thrombocytosis Monitor CBC. Follow trends. Sacral deep tissue injury Contractions evaluated by plastic surgery; no indication for surgery at this time; continue with wound care. Urinary retention continue Chapin cath and f/u as outpatient. Suspected PEG Dislodge awaiting for CT abdomen and Pelvis. Prophylaxis -GI -pantoprazole - -DVT SCD/heparin subcutaneous Code Status: Full code. Discussed Condition With: Patient and Nurse Miss Garcia Discharge Planning: Once cleared by ID specialist.
--- NOTE | 2018-06-03 13:10 | CT ---
EXAM DATE: 06/03/2018 1:05 PM EST AGE/SEX: 57 years / Male INDICATIONS: G tube placement. CLINICAL DATA: This is the patient's initial encounter. Patient reports that signs and symptoms have been present for 1 day and indicates a pain score of Nonresponsive. MEDICAL/SURGICAL HISTORY: Hiatal hernia. Gastritis. . Peg tube. RADIATION DOSE: 6.64 CTDI (mGy) [place] [facility] [place]AST, [place]/30/2018. . TECHNIQUE: Multiple contiguous axial images were obtained through the abdomen. Images were obtained using multiple row detector helical technique. Using automated exposure control and adjustment of the mA and/or kV according to patient size, radiation dose was kept as low as reasonably achievable to o btain optimal diagnostic quality images. DICOM format image data is available electronically for rev iew and comparison. FINDINGS: The exam demonstrates near complete collapse of the left lung with a small left effusion. There is hy perinflation of the right lung there is shift of the mediastinum from right to left. The appearance of the liver, spleen, pancreas, adrenal glands and kidneys is within normal limits. The examination demonstrates a gastrostomy tube. The tip of the tube appears to be within good positi on within the stomach. There is oral contrast which was passed through the bowel and is present withi n the colon. There is no free intraperitoneal air. The abdominal aorta is normal in caliber. There is no retroperitoneal adenopathy. There is no free fluid within the pelvis. No iliac or inguinal adenopathy is present. The visualized bony structures demonstrate degenerative changes but are otherwise intact. CONCLUSION: 1. The patient's gastrostomy tube is in good position. 2. Near complete collapse of the left lung. The lower chest is only partially visualized. This is ne w when compared to previous dated 05/30/2018. 3. Incidental Chapin catheter within the bladder. Electronically signed by: Ishmael Lemon MD 06/03/2018 1:09 PM EST
--- NOTE | 2018-06-03 16:01 | XR ---
EXAM DATE: 06/03/2018 3:58 PM EST AGE/SEX: 57 years / Male INDICATIONS: . Pulmonary disease CLINICAL DATA: This is the patient's subsequent encounter. Patient reports that signs and symptoms h ave been present for 1 week and indicates a pain score of Nonresponsive. MEDICAL/SURGICAL HISTORY: . Hiatal hernia. Gastritis. . . Peg tube COMPARISON: [facility], CHEST 1V SINGLE AP, 05/29/2018. . FINDINGS: The left chest is completely opacified. There is leftward cardiomediastinal shift. The appearance wou ld be consistent with total lung collapse. Right lung is focally clear. CONCLUSION: Total collapse of the left lung Electronically signed by: Shawn Newman MD 06/03/2018 4:00 PM EST
[2018-06-03] MEDS: Morphine Sulfate Inj 2 MG/ML Vial IV.PUSH PRN (17:21)
--- NOTE | 2018-06-03 17:35 | P.DIET ---
Nutritional Evaluation Type of nutrition evaluation: follow-up Nutrition consult regarding: Tube Feeding Objective - Diagnosis ARDS - Objective % IBW: 92 (IBW = 136#) Body Weight Used for Calculations: Actual (56.7 kg) Energy Needs - Lower Range (kCal/kg): 30 Energy Needs - Upper Range (kCal/kg): 35 Lower Limit kCal/kg (kCals): 1,701 Upper Limit kCal/kg (kCals): 1,985 Lower Limit Protein Factor (Grams per Kg): 1.2 Upper Limit Protein Factor (Grams per Kg): 1.6 Lower Protein Needs (Protein): 68 Upper Protein Needs (Protein): 91 Dietitian Reviewed in Medical Record: Curent medications, Intake & Output, Labs , Medical history, Tube feeding Diet Order: TF Speech Therapy Recommendations: Yes (NPO (05/29)) Objective Comments: PMH: stroke, smoker Assessment Assessment: Pt remains at high nutrition risk 2' to his dependence on TF. TF is currently on hold, but the pt has been tolerating Vital 1.5 @ 45 mls/hr. To better meet needs, recommend increase rate to 55 mls/hr to provide 1980 kcals, 89 gms protein and 1008 mls of free water. Labs, wts and clinical course reviewed. Recommendations: Increase Vital 1.5 to 55 mls/hr goal Dietitian to Monitor: Lab values, Intake & Output, Tube feeding tolerance, Weight change, Swallow recommendations, Medical course
[2018-06-04] MEDS: Piperacil/Tazo 3.375 GM Premix 50 ML IV.SIG SCH ×3 (01:32→17:27)
[2018-06-04] MEDS: Heparin - SQ 10,000 UNITS/ML Vial SQ SCH ×3 (05:13→22:31)
[2018-06-04] MEDS: dilTIAZem 30 MG Tablet G-TUBE SCH ×3 (09:00→17:30)
[2018-06-04] MEDS: Pantoprazole Inj 40 MG Vial IV.PUSH SCH (09:02)
[2018-06-04] MEDS: Linezolid 600 MG Tablet PO SCH ×2 (09:04→22:29)
[2018-06-04] MEDS: Mupirocin 2% Nasal Oint Topical Syringe EACH NARE SCH ×2 (09:04→22:30)
[2018-06-04] MEDS: Ascorbic Acid 500 MG Tablet G-TUBE SCH ×2 (09:04→22:28)
[2018-06-04] MEDS: Senna/Docusate Sodium 8.6/50 MG Tablet PO SCH ×2 (09:04→22:28)
[2018-06-04] MEDS: Baclofen 10 MG Tablet G-TUBE SCH ×2 (09:04→22:28)
[2018-06-04] MEDS: Multivitamin/Minerals Therapeutic Tablet PO SCH (09:04)
[2018-06-04] MEDS: guaiFENesin 600 MG ER Tablet PO SCH ×2 (09:05→22:28)
--- NOTE | 2018-06-04 12:19 | CT ---
EXAM DATE: 06/04/2018 12:11 PM EST AGE/SEX: 57 years / Male INDICATIONS: Left pleural effusion CLINICAL DATA: This is the patient's initial encounter. Patient reports that signs and symptoms have been present for 1 day and indicates a pain score of 0/10. MEDICAL/SURGICAL HISTORY: Cerebrovascular disease. . Peg tube RADIATION DOSE: 12.48 CTDI (mGy) COMPARISON: [facility] – [place], [place] ABDOMEN & PELVIS W CONTRAST, 12/17/2015. . TECHNIQUE: Multiple contiguous axial images were obtained through the chest without contrast. Image s were obtained in suspended respiration using multiple row detector helical technique. Using automa richardson exposure control and adjustment of the mA and/or kV according to patient size, radiation dose was kept as low as reasonably achievable to obtain optimal diagnostic quality images. DICOM format imag e data is available electronically for review and comparison. FINDINGS: Imaging through the thorax demonstrates an area of dense consolidation involving the left lung. There is near complete collapse of the left lower lobe. There are air bronchograms present. There is a sma ll left-sided pleural effusion. This finding is new when compared to previous dated 05/30/2018. There is a cut off of the left main bronchus suggesting possible mucous plugging. Bronchoscopy would be wa rranted for further assessment. There is mild hyperinflation of the right lung. The heart is mildly enlarged. There is atherosclerotic plaquing in the coronary arteries. There is a small pericardial effusion. The visualized osseous structures are intact. CONCLUSION: 1. Near complete collapse of the left lung predominantly the left lower lobe with debris seen within the left mainstem bronchus. This bronchoscopy would be of benefit for further assessment. 2. Minimal left-sided pleural effusion. 3. Minimal pericardial effusion. Electronically signed by: Ishmael Lemon MD 06/04/2018 12:18 PM EST
--- NOTE | 2018-06-04 15:51 | P.PNIM ---
Subjective Interval history: The patient was resting in bed. He was awake and alert but nonverbal. He did not indicate any acute discomfort. He was having his vital signs checked. Discussed with nursing. Physical Exam Vital signs: Vital Signs 06/03/18 16:00 06/03/18 20:00 06/04/18 00:00 Temperature 98.5 F 99.8 F H 99.6 F Pulse Rate 108 H 116 H 116 H Respiratory Rate 18 18 18 Blood Pressure 132/72 126/84 136/81 Pulse Oximetry 94 L 95 94 L 06/04/18 04:00 06/04/18 08:00 06/04/18 12:00 Temperature 98.9 F 97.4 F L Pulse Rate 111 H 108 H 115 H Respiratory Rate 19 20 Blood Pressure 119/73 110/59 L Pulse Oximetry 93 L 94 L Intake & Output 06/03/18 06/04/18 06/04/18 18:59 06:59 18:59 Intake Total 100 / 100 927 / 927 50 / 50 Output Total 300 / 300 750 / 750 Balance -200 / -200 177 / 177 50 / 50 Weight 56.6 kg Intake: IV 100 / 100 50 / 50 50 / 50 Zosyn 3.375 GM Premix 50 ML @ 100 / 100 50 / 50 50 / 50 100 mls/hr IV.SIG Q8H [facility] Rx#: [id number] Oral 0 / 0 Tube Feeding 357 / 357 Tube Irrigant 120 / 120 Water Bolus Amount 400 / 400 Other 0 / 0 Output: Urine 300 / 300 0 / 0 Urine Amount (Catheter) 750 / 750 Indwelling Urethral Catheter 750 / 750 Straight 0 / 0 Other: # Voids 0 Date of Last Bowel Movement 06/03/18 06/04/18 # Bowel Movements 1 # Incontinent Bowel Movements 1 Narrative: GENERAL: No acute distress. SKIN: Focused skin assessment warm/dry. HEAD: Atraumatic. Normocephalic. ENT: No nasal bleeding or discharge. Mucous membranes pink and moist. NECK: Trachea midline. No JVD. CARDIOVASCULAR: Regular rhythm with tachycardia no murmur appreciated. RESPIRATORY: Decreased breath sounds bilateral, No wheezing, has some rhonchi bilaterally. GASTROINTESTINAL: Abdomen soft, non-tender, PEG in place. NEUROLOGICAL: Alert and Awake, only follow certain commands and able to answer yes or no. Moves left upper extremity best. - Urinary Catheter Management Indwelling Urethral Catheter Cath placed during this visit: yes Reason for continuing: Chronic Urinary Retention Insertion date: 05/29/18 Insertion time: 14:40 Straight Cath placed during this visit: no Reason for continuing: Chronic Urinary Retention Results - Labs CBC & Chem 7: 06/01/18 03:54 05/31/18 06:30 - Imaging Impressions Chest X-Ray 06/03/18 14:50 CONCLUSION: Total collapse of the left lung Chest CT 06/04/18 18:18 CONCLUSION: 1. Near complete collapse of the left lung predominantly the left lower lobe with debris seen within the left mainstem bronchus. This bronchoscopy would be of benefit for further assessment. 2. Minimal left-sided pleural effusion. 3. Minimal pericardial effusion. - Procedures None Assessment and Plan - Plan Acute respiratory insufficiency-resolved. MRSA pneumonia UTI Nasal cannula to maintain saturations greater than equal to 92% Incentive spirometry while awake along with neb treatments. CT pulmonary angiogram revealed no signs of central pulmonary embolism. Right lower lobe infiltrate . sputum culture with MRSA one bottle of blood cultures with gram positive cocci; likely contamination; will follow the final ID. initial UC with ivett/ repeated UC negative; will stop Diflucan. as per ID specialist With diagnosis of MRSA Pneumonia, Staph epi low grade bacteremia, Ivett glabrata, Persistent Leukocytosis, UTI, Persistent Left Pneumonia, with possible right pleural effusion, as per ID to continue Zyvox by mouth, Zosyn started. not yet cleared for discharge. -CXR and CT with left lung collapse. Pulmonology consult is pending. Would benefit from bronch. History of debilitating CVA -Continue aspirin and lipitor. -Baclofen 10 mg p.o. twice daily -Physical therapy evaluate and treat Essential hypertension tachycardia Hyperlipidemia -continue Cardizem -continue atorvastatin 40 mg p.o. daily. Hypoalbuminemia Elevated transaminases- improving. constipation possible proctitis/ distal colitis esophageal stricture -continue with laxatives -was recently evaluated by GI for esophageal stricture- f/u with GI as outpatient. -continue tube feeding with vital 1.5 goal 55 cc an hour -pantoprazole for GI prophylaxis -Docusate sodium/senna 1 tablet twice daily for bowel regimen -antibiotics per ID. Leukocytosis Normocytic normochromic anemia Thrombocytosis -Monitor CBC. Follow trends. Sacral deep tissue injury Contractions -evaluated by plastic surgery; no indication for surgery at this time; continue with wound care. Urinary retention -continue Chapin cath and f/u as outpatient. Prophylaxis -GI -pantoprazole -DVT SCD/heparin subcutaneous
--- NOTE | 2018-06-04 17:39 | P.PNID ---
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 Antibiotics: Zosyn zyvox Past Medical History: Hernia History of stroke Smoker Speech impairment PEG Allergies/Adverse Reactions: Allergies No Known Allergies Allergy (Verified 04/25/18 20:36) Objective Vital Signs 06/03/18 20:00 06/04/18 00:00 06/04/18 04:00 Temperature 99.8 F H 99.6 F 98.9 F Pulse Rate 116 H 116 H 111 H Respiratory Rate 18 18 19 Blood Pressure 126/84 136/81 119/73 Pulse Oximetry 95 94 L 93 L 06/04/18 08:00 06/04/18 12:00 06/04/18 16:42 Temperature 97.4 F L Pulse Rate 108 H 115 H Respiratory Rate 20 Blood Pressure 110/59 L Pulse Oximetry 94 L 95 Intake & Output 06/03/18 06/04/18 06/04/18 18:59 06:59 18:59 Intake Total 100 / 100 927 / 927 50 / 50 Output Total 300 / 300 750 / 750 Balance -200 / -200 177 / 177 50 / 50 Weight 56.6 kg Intake: IV 100 / 100 50 / 50 50 / 50 Zosyn 3.375 GM Premix 50 ML @ 100 / 100 50 / 50 50 / 50 100 mls/hr IV.SIG Q8H [facility] Rx#: [id number] Oral 0 / 0 Tube Feeding 357 / 357 Tube Irrigant 120 / 120 Water Bolus Amount 400 / 400 Other 0 / 0 Output: Urine 300 / 300 0 / 0 Urine Amount (Catheter) 750 / 750 Indwelling Urethral Catheter 750 / 750 Straight 0 / 0 Other: # Voids 0 Date of Last Bowel Movement 06/03/18 06/04/18 # Bowel Movements 1 # Incontinent Bowel Movements 1 Imaging: ITS Impressions Chest CTA 05/23/18 18:20 CONCLUSION: 1. The study is negative for pulmonary embolism. 2. Right lower lobe consolidation. 3. Enlarged esophagus, similar in external contour compared to prior CT. Abdomen/Pelvis CT 06/03/18 00:00 CONCLUSION: 1. The patient's gastrostomy tube is in good position. 2. Near complete collapse of the left lung. The lower chest is only partially visualized. This is new when compared to previous dated 05/30/2018. 3. Incidental Chapin catheter within the bladder. Chest X-Ray 06/03/18 14:50 CONCLUSION: Total collapse of the left lung Chest CT 06/04/18 18:18 CONCLUSION: 1. Near complete collapse of the left lung predominantly the left lower lobe with debris seen within the left mainstem bronchus. This bronchoscopy would be of benefit for further assessment. 2. Minimal left-sided pleural effusion. 3. Minimal pericardial effusion. Physical Exam: GENERAL: NAD. Awake and alert, responding SKIN: Warm and dry. HEAD: Atraumatic. Normocephalic. EYES: Pupils equal and round. No scleral icterus. No injection or drainage. ENT: No nasal bleeding or discharge. Mucous membranes pink and moist. NECK: Trachea midline. No JVD. CARDIOVASCULAR: Regular rate and rhythm. no murmur RESPIRATORY: diffuse rhonchi b/l to auscultation. Breath sounds decreased bilaterally. GASTROINTESTINAL: Abdomen soft, non-tender, nondistended. MUSCULOSKELETAL: Extremities without clubbing, cyanosis, or edema. contracted extremeties NEUROLOGICAL: Awake and alert, stable severe neurological deficits non verval PSYCHIATRIC: calm Assessment and Plan - Plan Impression PNA, MRSA Staph epi low grade bacteremia, doubt clin significance candiduria, glabrata - doubt clin significance Persistently elevated WBC ? UTI - repeat UA abnormal again Persistent PNA, left with possible small right effusion Leukocytosis Abnormal colon on CT - no diarrhea, has a lot of stool, abd exam benign Dyspahgia PNA ? aspiration Near complete collapse of the left lung predominantly the left lower lobe with debris seen within the left mainstem bronchus. Recommendation cont zyvox PO Zosyn has been started awaoiting clx from bronch dw Dr Solorzano
--- NOTE | 2018-06-04 23:10 | MB ---
cc: Rashad Solorzano MD DATE: 06/04/2018 REASON FOR CONSULTATION: Atelectasis, left lower lobe. HISTORY OF PRESENT ILLNESS: The patient is a 57-year-old male post stroke, bedridden, who presented on 05/23/2018 with hypoxemia and altered mental status. The patient is normally nonverbal. Chest x-ray was clear. An infiltrate in the left lung was noted by CT, however. The patient was given antibiotic therapy for underlying sepsis, did clinically improve and transferred out of intensive care. However, a chest x-ray now reveals near total opacification in the left lung, mostly related to pneumonia and mostly left lower lobe atelectasis with apparent mucus plugging. The patient is in no acute distress at this time. PAST SURGICAL HISTORY: Previous stroke and the patient is bedridden and nonverbal. SOCIAL HISTORY: He used to smoke. FAMILY HISTORY: Not obtainable. CURRENT MEDICATIONS: Include: 1. Nebulized albuterol. 2. Baclofen. 3. Diltiazem. 4. Mucinex. 5. Subcutaneous heparin. 6. Lactulose. 7. Zyvox. 8. Morphine as needed. 9. Protonix. ALLERGIES: NONE KNOWN TO MEDICATIONS. REVIEW OF SYSTEMS: A 12-point review of systems is as per HPI and past history, otherwise negative. PHYSICAL EXAMINATION: VITAL SIGNS: Temperature 98, pulse 100, respirations 20, blood pressure 113/70, oxygen saturations 93% to 95% on 2 liters oxygen by nasal cannula. IMAGING DATA: CT scan of the chest with consolidation, mostly left lower lobe, and atelectasis of the left lung, mostly left lower lobe. IMPRESSION: 1. Atelectasis, left lung. 2. Pneumonia. 3. Status post cerebrovascular accident, bedridden. PLAN: The patient is in no acute distress at the present time. He is given nebulized albuterol on an as-needed basis, which will be changed to 4 times a day. To mobilize secretions, Mucinex will be continued. A chest x-ray will be repeated in the a.m. if atelectasis persists, then a bronchoscopy will be undertaken to remove the secretions. The patient's outlook overall given his multiple problems and being bedridden is poor. I do thank you for asking me to partake in Mr. Whelan's care. MD SINAI Davis/rose , 10:47 PM , 10:56 PM
[2018-06-05] MEDS: Piperacil/Tazo 3.375 GM Premix 50 ML IV.SIG SCH ×3 (01:34→18:15)
[2018-06-05] MEDS: Heparin - SQ 10,000 UNITS/ML Vial SQ SCH ×3 (05:56→21:59)
[2018-06-05] MEDS: Multivitamin/Minerals Therapeutic Tablet PO SCH (09:07)
[2018-06-05] MEDS: Ascorbic Acid 500 MG Tablet G-TUBE SCH ×2 (09:07→21:59)
[2018-06-05] MEDS: dilTIAZem 30 MG Tablet G-TUBE SCH ×3 (09:07→18:17)
[2018-06-05] MEDS: Baclofen 10 MG Tablet G-TUBE SCH ×2 (09:07→21:58)
[2018-06-05] MEDS: Linezolid 600 MG Tablet PO SCH ×2 (09:07→21:59)
[2018-06-05] MEDS: Mupirocin 2% Nasal Oint Topical Syringe EACH NARE SCH ×2 (09:07→22:00)
[2018-06-05] MEDS: Senna/Docusate Sodium 8.6/50 MG Tablet PO SCH ×2 (09:07→21:59)
[2018-06-05] MEDS: Pantoprazole Inj 40 MG Vial IV.PUSH SCH (09:11)
[2018-06-05] MEDS: guaiFENesin 600 MG ER Tablet PO SCH ×2 (09:11→21:59)
--- NOTE | 2018-06-05 09:21 | XR ---
EXAM DATE: 06/05/2018 9:17 AM EST AGE/SEX: 57 years / Male INDICATIONS: Difficulty breathing. CLINICAL DATA: This is the patient's subsequent encounter. Patient reports that signs and symptoms h ave been present for 3 days and indicates a pain score of Nonresponsive. MEDICAL/SURGICAL HISTORY: . Cerebrovascular disease. Peg tube . [place] [facility] [place]. . FINDINGS: The examination demonstrates some partial interval reinflation of the left upper lobe. There is guy nued diffuse consolidation and effusion within the left lung. There is mild hyperinflation of the rig ht lung. There is shift of the mediastinum from right to left. The visualized bony structures are jerri ssly intact. CONCLUSION: The exam demonstrates some limited reinflation of left upper lobe. There is still continued atelectas is involving most of the left lung and left effusion. Electronically signed by: Ishmael Lemon MD 06/05/2018 9:19 AM EST
--- NOTE | 2018-06-05 15:43 | P.PNIM ---
Subjective Interval history: The pt was resting comfortably. He was awake and alert but not talking. He did not indicate discomfort. He was listening to music. Physical Exam Vital signs: Vital Signs 06/04/18 16:00 06/04/18 16:42 06/04/18 20:00 Temperature 97.3 F L 98 F Pulse Rate 109 H 106 H Respiratory Rate 20 20 Blood Pressure 127/72 113/73 Pulse Oximetry 94 L 95 93 L 06/05/18 00:00 06/05/18 04:00 06/05/18 04:21 Temperature 98 F 98 F Pulse Rate 107 H 111 H 94 H Respiratory Rate 20 20 20 Blood Pressure 128/75 118/60 Pulse Oximetry 94 L 95 95 06/05/18 08:00 06/05/18 12:00 Temperature 97.8 F 98.6 F Pulse Rate 111 H 112 H Respiratory Rate 18 18 Blood Pressure 124/78 131/86 Pulse Oximetry 96 95 Intake & Output 06/04/18 06/05/18 06/05/18 18:59 06:59 18:59 Intake Total 100 / 100 50 / 50 50 / 50 Output Total 975 / 975 Balance -875 / -875 50 / 50 50 / 50 Intake: IV 100 / 100 50 / 50 50 / 50 Zosyn 3.375 GM Premix 50 ML @ 100 / 100 50 / 50 50 / 50 100 mls/hr IV.SIG Q8H [facility] Rx#: [id number] Oral 0 / 0 0 / 0 Output: Urine 975 / 975 Other: # Voids 650 Date of Last Bowel Movement 06/04/18 # Bowel Movements 1 1 Narrative: GENERAL: No acute distress. SKIN: Focused skin assessment warm/dry. HEAD: Atraumatic. Normocephalic. ENT: No nasal bleeding or discharge. Mucous membranes pink and moist. NECK: Trachea midline. No JVD. CARDIOVASCULAR: Regular rhythm with tachycardia no murmur appreciated. RESPIRATORY: Decreased breath sounds on the left, no wheezing, has some rhonchi bilaterally. GASTROINTESTINAL: Abdomen soft, non-tender, PEG in place. NEUROLOGICAL: Alert and Awake, only follow certain commands and able to answer yes or no. Moves left upper extremity best. - Urinary Catheter Management Indwelling Urethral Catheter Cath placed during this visit: yes Reason for continuing: Chronic Urinary Retention Insertion date: 11/21/18 Insertion time: 14:40 Straight Cath placed during this visit: no Reason for continuing: Chronic Urinary Retention Results - Labs CBC & Chem 7: 06/01/18 03:54 05/31/18 06:30 - Imaging Impressions Chest X-Ray 06/05/18 00:00 CONCLUSION: The exam demonstrates some limited reinflation of left upper lobe. There is still continued atelectasis involving most of the left lung and left effusion. - Procedures None Assessment and Plan - Plan Acute respiratory insufficiency-resolved. MRSA pneumonia UTI Nasal cannula to maintain saturations greater than equal to 92% Incentive spirometry while awake along with neb treatments. CT pulmonary angiogram revealed no signs of central pulmonary embolism. Right lower lobe infiltrate . sputum culture with MRSA one bottle of blood cultures with gram positive cocci; likely contamination; will follow the final ID. initial UC with ivett/ repeated UC negative; will stop Diflucan. as per ID specialist With diagnosis of MRSA Pneumonia, Staph epi low grade bacteremia, Ivett glabrata, Persistent Leukocytosis, UTI, Persistent Left Pneumonia, with possible right pleural effusion, as per ID to continue Zyvox by mouth, Zosyn started. not yet cleared for discharge. -CXR and CT with left lung collapse. Pulmonology consult appreciated. Considering bronch. -continue pulmonary toilet. History of debilitating CVA -Continue aspirin and lipitor. -Baclofen 10 mg p.o. twice daily -Physical therapy evaluate and treat Essential hypertension tachycardia Hyperlipidemia -continue Cardizem -continue atorvastatin 40 mg p.o. daily. Hypoalbuminemia Elevated transaminases- improving. constipation possible proctitis/ distal colitis esophageal stricture -continue with laxatives -was recently evaluated by GI for esophageal stricture- f/u with GI as outpatient. -continue tube feeding with vital 1.5 goal 55 cc an hour -pantoprazole for GI prophylaxis -Docusate sodium/senna 1 tablet twice daily for bowel regimen -antibiotics per ID. On Zyvox and Zosyn. Leukocytosis Normocytic normochromic anemia Thrombocytosis -Monitor CBC. Follow trends. Sacral deep tissue injury Contractions -evaluated by plastic surgery; no indication for surgery at this time; continue with wound care. Urinary retention -continue Chapin cath and f/u as outpatient. Prophylaxis -GI -pantoprazole -DVT SCD/heparin subcutaneous
--- NOTE | 2018-06-05 18:25 | P.PN ---
Subjective Interval history: ALERT NON VERBAL NO DISTRESS Physical Exam Vital signs: Vital Signs 06/04/18 20:00 06/05/18 00:00 06/05/18 04:00 Temperature 98 F 98 F 98 F Pulse Rate 106 H 107 H 111 H Respiratory Rate 20 20 20 Blood Pressure 113/73 128/75 118/60 Pulse Oximetry 93 L 94 L 95 06/05/18 04:21 06/05/18 08:00 06/05/18 12:00 Temperature 97.8 F 98.6 F Pulse Rate 94 H 108 H 105 H Respiratory Rate 20 18 18 Blood Pressure 124/78 131/86 Pulse Oximetry 95 96 95 06/05/18 16:00 06/05/18 17:44 Temperature 97.7 F Pulse Rate 108 H Respiratory Rate 18 Blood Pressure 139/74 Pulse Oximetry 99 99 Intake & Output 06/04/18 06/05/18 06/05/18 18:59 06:59 18:59 Intake Total 100 / 100 50 / 50 50 / 50 Output Total 975 / 975 Balance -875 / -875 50 / 50 50 / 50 Intake: IV 100 / 100 50 / 50 50 / 50 Zosyn 3.375 GM Premix 50 ML @ 100 / 100 50 / 50 50 / 50 100 mls/hr IV.SIG Q8H [facility] Rx#: [id number] Oral 0 / 0 0 / 0 Output: Urine 975 / 975 Other: # Voids 650 Date of Last Bowel Movement 06/04/18 # Bowel Movements 1 1 Narrative: GENERAL: No acute distress. SKIN: Focused skin assessment warm/dry. HEAD: Atraumatic. Normocephalic. ENT: No nasal bleeding or discharge. Mucous membranes pink and moist. NECK: Trachea midline. No JVD. CARDIOVASCULAR: Regular rhythm with tachycardia no murmur appreciated. RESPIRATORY: Decreased breath sounds on the left, no wheezing, has some rhonchi bilaterally. GASTROINTESTINAL: Abdomen soft, non-tender, PEG in place. NEUROLOGICAL: Alert and Awake, only follow certain commands and able to answer yes or no. Moves left upper extremity best. - Urinary Catheter Management Indwelling Urethral Catheter Cath placed during this visit: yes Reason for continuing: Chronic Urinary Retention Insertion date: 05/29/18 Insertion time: 14:40 Straight Cath placed during this visit: no Reason for continuing: Chronic Urinary Retention Results - Labs CBC & Chem 7: 06/01/18 03:54 05/31/18 06:30 - Imaging Impressions Chest X-Ray 06/05/18 00:00 CONCLUSION: The exam demonstrates some limited reinflation of left upper lobe. There is still continued atelectasis involving most of the left lung and left effusion. - Procedures None Assessment and Plan - Plan IMPRESSION ATELECTASIS LEFT LUNG PLEURAL EFFUSION S/P CVA PLAN BRONCHOSCOPY THORACENTESIS IF NEEDED PULM TOILET
[2018-06-06] MEDS: Piperacil/Tazo 3.375 GM Premix 50 ML IV.SIG SCH ×3 (01:21→17:42)
[2018-06-06 06:10] LABS: Hemoglobin 8.9 gm/dL (13.0-17.0); Mean Corpuscular HGB Conc 31.8 % (32.0-36.0); Mean Corpuscular Hemoglobin 27.8 pg (27.0-34.0); Mean Corpuscular Volume 87.6 fL (80.0-100.0); Mean Platelet Volume 7.1 fL (7.0-11.0); Platelet Count 648 th/mm3 (150-450); Red Cell Distribution Width 18.4 % (11.6-17.2); White Blood Count 14.9 th/mm3 (4.0-11.0)
[2018-06-06] MEDS: Heparin - SQ 10,000 UNITS/ML Vial SQ SCH ×3 (06:23→22:48)
[2018-06-06 06:31] LABS: Anion Gap 11 meq/L (5-15); Blood Urea Nitrogen 12 mg/dL (7-18); Calcium 8.4 mg/dL (8.5-10.1); Carbon Dioxide 25.4 meq/L (21.0-32.0); Chloride 103 meq/L (98-107); Glomerular Filtration Rate Greater Than 89 mL/min (>89); Glucose,Random 97 mg/dL (74-106); Potassium 4.2 meq/L (3.5-5.1); Sodium 139 meq/L (136-145)
[2018-06-06] MEDS: Linezolid 600 MG Tablet PO SCH ×2 (08:43→22:46)
[2018-06-06] MEDS: Ascorbic Acid 500 MG Tablet G-TUBE SCH ×2 (08:43→22:46)
[2018-06-06] MEDS: Baclofen 10 MG Tablet G-TUBE SCH ×2 (08:43→22:46)
[2018-06-06] MEDS: Multivitamin/Minerals Therapeutic Tablet PO SCH (08:43)
[2018-06-06] MEDS: dilTIAZem 30 MG Tablet G-TUBE SCH ×3 (08:44→17:42)
[2018-06-06] MEDS: Mupirocin 2% Nasal Oint Topical Syringe EACH NARE SCH ×2 (08:45→22:47)
[2018-06-06] MEDS: Senna/Docusate Sodium 8.6/50 MG Tablet PO SCH ×2 (08:58→22:46)
[2018-06-06] MEDS: guaiFENesin 600 MG ER Tablet PO SCH ×2 (08:59→22:46)
[2018-06-06] MEDS: Pantoprazole Inj 40 MG Vial IV.PUSH SCH (08:59)
--- NOTE | 2018-06-06 14:53 | P.PNPAL ---
Reason for Visit Reason for visit: a. To assist with evaluation and management of symptoms including: dyspnea, debility. b. To assist medical decision maker(s) with: better understanding of current medical conditions; weighing benefits/burdens of medical treatment options; making medical treatment decisions. Subjective Subjective/Interval History: Patient seen and examined in room. Significant other, Chapis at bedside. She is tearful stating "he is so weak, he has lost so much weight." Weight has decreased from 63.503 kg (on admission) to 54.6 kg (06/06/18). Patient is awake and alert. He answers questions by nodding appropriately. He speaks a few soft words. He denies pain, anxiety or shortness of breath. On oxygen via NC 2.5 LPM. Tube feeding has become disconnected, nurses notified. Vital signs stable. WBC 14.9, hemoglobin 8.9, platelets 648. Creatinine 0.25. Chest x-ray with diffuse consolidation and effusion of left lung, partial interval reinflation of left upper lobe, mild hyperinflation of right lung. Dr. Solorzano's notes indicate plan for bronchoscopy and possible thoracentesis. Discussed with Dr. Kemp and left message for Dr. Solorzano. Family/Friend Interactions: Lengthy conversation with Chapis (SO). Medical update provided. Explained I am concerned about his ongoing trajectory of decline and that is decline will continue despite our efforts to get him better. Discussed need for bronch and poss thoracentesis, she agrees to proceed. Talked about possible need for vent. Risks of infections, etc. She is appropriately tearful and very appreciative of time spent to explained things to her. She tells me she has limited minutes on her phone. I provided my cell number so she could call me at her convenience. She does not drive, takes the bus here. Questions answered. Advance Directives Health Care Surrogate Name and Number: Power of clinic clerk includes kassie Chapis Richardson: [phone] Significant change in goals:: FULL CODE. Goals remain aggressive, including plan to proceed with bronchoscopy and thoracentesis. Objective Vital Signs: Vital Signs 06/05/18 16:00 06/05/18 17:44 06/05/18 20:00 Temperature 97.7 F 98.1 F Pulse Rate 108 H 117 H Respiratory Rate 18 17 Blood Pressure 139/74 131/63 Pulse Oximetry 99 99 94 L 06/06/18 00:00 06/06/18 04:00 06/06/18 05:29 Temperature 98.2 F 99.1 F Pulse Rate 115 H 117 H 120 H Respiratory Rate 18 19 30 H Blood Pressure 120/59 L 122/77 Pulse Oximetry 97 96 06/06/18 08:00 06/06/18 09:13 06/06/18 12:00 Temperature 99.3 F 97.1 F L Pulse Rate 112 H 117 H 114 H Respiratory Rate 16 18 16 Blood Pressure 133/77 120/72 Pulse Oximetry 99 98 97 Intake & Output 06/05/18 06/06/18 06/06/18 18:59 06:59 18:59 Intake Total 100 / 100 50 / 50 50 / 50 Output Total 550 / 550 1002 / 1002 Balance -450 / -450 -952 / -952 50 / 50 Weight 54.6 kg Intake: IV 100 / 100 50 / 50 50 / 50 Zosyn 3.375 GM Premix 50 ML @ 100 / 100 50 / 50 50 / 50 100 mls/hr IV.SIG Q8H [facility] Rx#: [id number] Output: Urine 550 / 550 1000 / 1000 Urine/Stool Mix 2 / 2 Other: Date of Last Bowel Movement 06/05/18 06/06/18 06/06/18 # Bowel Movements 1 Physical Exam: CONSTITUTIONAL/GENERAL: This is a thin, chronically ill appearing male. TUBES/LINES/DRAINS:PIV bilateral, oxygen via simple mask, PEG tube, Chapin SKIN: No jaundice, rashes, or lesions. Ecchymoses on upper extremities. No wounds seen anteriorly. Sacral and hip wounds per nursing notes, not visualized. Skin temperature appropriate. Not diaphoretic. ENT: Hearing appears grossly normal. Nose without bleeding or purulent drainage. CARDIOVASCULAR: Tachycardic. RESPIRATORY/CHEST: Coarse breath sounds on right and left upper. GASTROINTESTINAL: Abdomen soft, non-tender, nondistended. PEG tube. Bowel sounds present. GENITOURINARY: Without palpable bladder distension. Chapin catheter in place. MUSCULOSKELETAL: Extremities without clubbing, cyanosis, or edema. Hypersensitive to light touch. No mottling or clubbing. Contractures. NEUROLOGICAL: Awakens easily. Answers questions. Moves all extremities. PSYCHIATRIC: calm. Diagnostic Tests Laboratory: Laboratory Results - last 72 hr 06/06/18 06/06/18 06/06/18 03:59 03:59 05:10 WBC 14.9 H RBC 3.20 L Hgb 8.9 L Hct 28.0 L MCV 87.6 MCH 27.8 MCHC 31.8 L RDW 18.4 H Plt Count 648 H MPV 7.1 Sodium 139 Potassium 4.2 Chloride 103 Carbon Dioxide 25.4 Anion Gap 11 BUN 12 Creatinine 0.25 L Estimated GFR Greater than 89 POC Glucose 121 H Random Glucose 97 Calcium 8.4 L Result Diagrams: 06/06/18 03:59 06/06/18 03:59 Imaging: Chest CTA 05/23/18 18:20 CONCLUSION: 1. The study is negative for pulmonary embolism. 2. Right lower lobe consolidation. 3. Enlarged esophagus, similar in external contour compared to prior CT. Abdomen/Pelvis CT 06/03/18 00:00 CONCLUSION: 1. The patient's gastrostomy tube is in good position. 2. Near complete collapse of the left lung. The lower chest is only partially visualized. This is new when compared to previous dated 05/30/2018. 3. Incidental Chapin catheter within the bladder. Chest CT 06/04/18 18:18 CONCLUSION: 1. Near complete collapse of the left lung predominantly the left lower lobe with debris seen within the left mainstem bronchus. This bronchoscopy would be of benefit for further assessment. 2. Minimal left-sided pleural effusion. 3. Minimal pericardial effusion. Chest X-Ray 06/05/18 00:00 CONCLUSION: The exam demonstrates some limited reinflation of left upper lobe. There is still continued atelectasis involving most of the left lung and left effusion. Assessment and Plan - Disease Oriented Problem List (1) UTI (urinary tract infection) (2) Aspiration pneumonia (3) Hypoxia (4) Debility Pertinent Non-Medical Issues: Psychosocial: Has been with his significant other, Chapis for the past 20 years. Spiritual: [employer]. Legal: Patient does not appear capacitated to make his own healthcare decisions , uncertain if he will regain capacity. 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 Ethical issues impacting care: No known concerns at this time. Important Contacts: * Chapis Richardson, medical POA/ SO: [phone] Prognosis: Mr. Whelan is an unfortunate 57-year-old male who previously suffered a stroke and has had recent trajectory of decline for the past 6 months. He appears quite debilitated. He remains high risk for further setbacks and decline. Hospice appropriate if goals are comfort oriented. Code Status: Full Code Plan: * Legal Decision Maker: Patient does not appear capacitated to make his own healthcare decisions, uncertain if he will regain capacity. DURABLE POWER OF HANDICRAFT OR HOBBY SHOP MANAGER on chart includes healthcare names Chapisedith Richardson as healthcare decision maker. * FULL CODE * GOALS: Goals remain aggressive at this time including FULL Code. Desires to proceed with bronch and thoracentesis if needed. * SYMPTOMS: Altered mental status: Secondary to infection and prior stroke. On antibiotics and Diflucan. Dyspnea: On oxygen via nasal cannula alternating with simple mask. Nebulizers and antibiotics ordered. * Palliative care will continue to follow throughout hospital course to assist with symptom management further clarification of goals of medical treatment as needed. Attestation Attestation: To help prompt me to consider important information that might be impacting today's encounter and assessment, information from prior notes written by myself or my colleagues may have been "brought forward" into today's note. My signature on this note, however, is an attestation that I personally performed the exam, history, and/or decision-making noted today, and, unless otherwise indicated, the interactions with patient, family, and staff as well as the review of records all occurred today. I also attest that the listed assessment and stated plan reflect my best clinical judgment today based on the combination of historical information, prior notes, and today's exam/ interactions. When time spent is documented, it refers only to time spent today by the signer, or if indicated, combined time spent today by collaborating physician/nurse practitioner.
--- NOTE | 2018-06-06 16:51 | P.PNIM ---
Subjective Interval history: The patient had just been changed. He did not indicate any bothersome symptoms. Discussed with his family and palliative care. Also discussed with nursing and pulmonology. Physical Exam Vital signs: Vital Signs 06/05/18 17:44 06/05/18 20:00 06/06/18 00:00 Temperature 98.1 F 98.2 F Pulse Rate 117 H 115 H Respiratory Rate 17 18 Blood Pressure 131/63 120/59 L Pulse Oximetry 99 94 L 97 06/06/18 04:00 06/06/18 05:29 06/06/18 08:00 Temperature 99.1 F 99.3 F Pulse Rate 117 H 120 H 112 H Respiratory Rate 19 30 H 16 Blood Pressure 122/77 133/77 Pulse Oximetry 96 99 06/06/18 09:13 06/06/18 12:00 06/06/18 16:00 Temperature 97.1 F L 97.7 F Pulse Rate 117 H 112 H 111 H Respiratory Rate 18 16 16 Blood Pressure 120/72 129/70 Pulse Oximetry 98 97 97 Intake & Output 06/05/18 06/06/18 06/06/18 18:59 06:59 18:59 Intake Total 100 / 100 50 / 50 50 / 50 Output Total 550 / 550 1002 / 1002 Balance -450 / -450 -952 / -952 50 / 50 Weight 54.6 kg Intake: IV 100 / 100 50 / 50 50 / 50 Zosyn 3.375 GM Premix 50 ML @ 100 / 100 50 / 50 50 / 50 100 mls/hr IV.SIG Q8H [facility] Rx#: [id number] Output: Urine 550 / 550 1000 / 1000 Urine/Stool Mix 2 / 2 Other: Date of Last Bowel Movement 06/05/18 06/06/18 06/06/18 # Bowel Movements 1 Narrative: GENERAL: No acute distress. SKIN: Focused skin assessment warm/dry. HEAD: Atraumatic. Normocephalic. ENT: No nasal bleeding or discharge. Mucous membranes pink and moist. NECK: Trachea midline. No JVD. CARDIOVASCULAR: Regular rhythm with tachycardia no murmur appreciated. RESPIRATORY: Decreased breath sounds on the left, no wheezing, has some rhonchi bilaterally. GASTROINTESTINAL: Abdomen soft, non-tender, PEG in place. NEUROLOGICAL: Alert and Awake, only follow certain commands and able to answer yes or no. Moves left upper extremity best. - Urinary Catheter Management Indwelling Urethral Catheter Cath placed during this visit: yes Reason for continuing: Chronic Urinary Retention Insertion date: 05/29/18 Insertion time: 14:40 Straight Cath placed during this visit: no Reason for continuing: Chronic Urinary Retention Results - Labs CBC & Chem 7: 06/06/18 03:59 06/06/18 03:59 Laboratory Results - last 24 hr 06/06/18 06/06/18 06/06/18 03:59 03:59 05:10 WBC 14.9 H RBC 3.20 L Hgb 8.9 L Hct 28.0 L MCV 87.6 MCH 27.8 MCHC 31.8 L RDW 18.4 H Plt Count 648 H MPV 7.1 Sodium 139 Potassium 4.2 Chloride 103 Carbon Dioxide 25.4 Anion Gap 11 BUN 12 Creatinine 0.25 L Estimated GFR Greater than 89 POC Glucose 121 H Random Glucose 97 Calcium 8.4 L - Procedures None Assessment and Plan - Plan Acute respiratory insufficiency/MRSA pneumonia/UTI CT pulmonary angiogram revealed no signs of central pulmonary embolism. Right lower lobe infiltrate. Sputum culture with MRSA. Initial UC with steff/ repeated UC negative; stopped Diflucan. Has a positive blood culture bottle. -to continue Zyvox by mouth, Zosyn started. not yet cleared for discharge. -CXR and CT with left lung collapse. Pulmonology consult appreciated. Bronchoscopy scheduled for 06/07. -continue pulmonary toilet. -Nasal cannula to maintain saturations greater than equal to 92%. -Incentive spirometry while awake along with neb treatments. History of debilitating CVA Chronic. -Continue aspirin and lipitor. -Baclofen 10 mg p.o. twice daily -Physical therapy evaluate and treat Essential hypertension/tachycardia/Hyperlipidemia Stable. -continue Cardizem -continue atorvastatin 40 mg p.o. daily. Hypoalbuminemia/Elevated transaminases/Constipation/Possible proctitis/Distal colitis/Esophageal stricture Stable. -continue with laxatives -was recently evaluated by GI for esophageal stricture- f/u with GI as outpatient. -continue tube feeding with vital 1.5 goal 55 cc an hour -pantoprazole for GI prophylaxis -Docusate sodium/senna 1 tablet twice daily for bowel regimen -antibiotics per ID. On Zyvox and Zosyn. Leukocytosis/Normocytic normochromic anemia/Thrombocytosis Stable. -Monitor CBC. Follow trends. Sacral deep tissue injury/Contractions -evaluated by plastic surgery; no indication for surgery at this time; continue with wound care. Urinary retention -continue Chapin cath and f/u as outpatient. Prophylaxis -GI -pantoprazole -DVT SCD/heparin subcutaneous
--- NOTE | 2018-06-06 23:19 | P.PNID ---
Subjective Remarks: afebrile seen by pulmonary BAL, thoracocenthesis planned no new issues Antibiotics: Zosyn zyvox Past Medical History: Hernia History of stroke Smoker Speech impairment PEG Allergies/Adverse Reactions: Allergies No Known Allergies Allergy (Verified 04/25/18 20:36) Objective Vital Signs 06/06/18 00:00 06/06/18 04:00 06/06/18 05:29 Temperature 98.2 F 99.1 F Pulse Rate 115 H 117 H 120 H Respiratory Rate 18 19 30 H Blood Pressure 120/59 L 122/77 Pulse Oximetry 97 96 06/06/18 08:00 06/06/18 09:13 06/06/18 12:00 Temperature 99.3 F 97.1 F L Pulse Rate 112 H 117 H 112 H Respiratory Rate 16 18 16 Blood Pressure 133/77 120/72 Pulse Oximetry 99 98 97 06/06/18 16:00 06/06/18 20:00 06/06/18 21:42 Temperature 97.7 F 97.6 F Pulse Rate 116 H 107 H Respiratory Rate 16 18 Blood Pressure 129/70 133/73 Pulse Oximetry 97 99 98 Intake & Output 06/06/18 06/06/18 06/07/18 06:59 18:59 06:59 Intake Total 50 / 50 100 / 100 Output Total 1002 / 1002 Balance -952 / -952 100 / 100 Weight 54.6 kg Intake: IV 50 / 50 100 / 100 Zosyn 3.375 GM Premix 50 ML @ 50 / 50 100 / 100 100 mls/hr IV.SIG Q8H [facility] Rx#: [id number] Oral 0 / 0 Output: Urine 1000 / 1000 Urine/Stool Mix 2 / 2 Other: # Incontinent Voids 2 Date of Last Bowel Movement 06/06/18 06/06/18 # Bowel Movements 2 Lab - Hematology Results 06/06/18 03:59 WBC 14.9 H RBC 3.20 L Hgb 8.9 L Hct 28.0 L MCV 87.6 MCH 27.8 MCHC 31.8 L RDW 18.4 H Plt Count 648 H MPV 7.1 Lab - Chemistry Results 06/06/18 06/06/18 03:59 05:10 Sodium 139 Potassium 4.2 Chloride 103 Carbon Dioxide 25.4 Anion Gap 11 BUN 12 Creatinine 0.25 L Estimated GFR Greater than 89 POC Glucose 121 H Random Glucose 97 Calcium 8.4 L Imaging: ITS Impressions Chest CTA 05/23/18 18:20 CONCLUSION: 1. The study is negative for pulmonary embolism. 2. Right lower lobe consolidation. 3. Enlarged esophagus, similar in external contour compared to prior CT. Abdomen/Pelvis CT 06/03/18 00:00 CONCLUSION: 1. The patient's gastrostomy tube is in good position. 2. Near complete collapse of the left lung. The lower chest is only partially visualized. This is new when compared to previous dated 05/30/2018. 3. Incidental Chapin catheter within the bladder. Chest CT 06/04/18 18:18 CONCLUSION: 1. Near complete collapse of the left lung predominantly the left lower lobe with debris seen within the left mainstem bronchus. This bronchoscopy would be of benefit for further assessment. 2. Minimal left-sided pleural effusion. 3. Minimal pericardial effusion. Chest X-Ray 06/05/18 00:00 CONCLUSION: The exam demonstrates some limited reinflation of left upper lobe. There is still continued atelectasis involving most of the left lung and left effusion. Physical Exam: GENERAL: NAD. Awake and alert, minimally responding SKIN: Warm and dry. HEAD: Atraumatic. Normocephalic. EYES: Pupils equal and round. No scleral icterus. No injection or drainage. ENT: No nasal bleeding or discharge. Mucous membranes pink and moist. NECK: Trachea midline. No JVD. CARDIOVASCULAR: Regular rate and rhythm. no murmur RESPIRATORY: diffuse rhonchi b/l to auscultation. Breath sounds decreased bilaterally. GASTROINTESTINAL: Abdomen soft, non-tender, nondistended. MUSCULOSKELETAL: Extremities without clubbing, cyanosis, or edema. contracted extremeties NEUROLOGICAL: Awake and alert, stable severe neurological deficits non verval PSYCHIATRIC: calm Assessment and Plan - Plan Impression PNA, MRSA Staph epi low grade bacteremia, doubt clin significance candiduria, glabrata - doubt clin significance Persistently elevated WBC ? UTI - repeat UA abnormal again Persistent PNA, left with possible small right effusion Leukocytosis: improved Abnormal colon on CT - no diarrhea, has a lot of stool, abd exam benign Dyspahgia PNA ? aspiration Near complete collapse of the left lung predominantly the left lower lobe with debris seen within the left mainstem bronchus. Recommendation cont zyvox PO cont Zosyn awaiting clx from bronch
[2018-06-07] MEDS: Piperacil/Tazo 3.375 GM Premix 50 ML IV.SIG SCH ×3 (02:17→18:00)
[2018-06-07] MEDS: Heparin - SQ 10,000 UNITS/ML Vial SQ SCH ×3 (06:18→22:09)
[2018-06-07] MEDS ORDERED: Lidocaine PF 1% Inj 5 ML Syringe OTHER ONE (08:19)
[2018-06-07] MEDS ORDERED: Sugammadex Inj 200 MG/2 ML Vial IV.PUSH ONE (08:24)
--- NOTE | 2018-06-07 08:45 | P.PN ---
Subjective Interval history: non verbal nad Physical Exam Vital signs: Vital Signs 06/06/18 09:13 06/06/18 12:00 06/06/18 16:00 Temperature 97.1 F L 97.7 F Pulse Rate 117 H 112 H 116 H Respiratory Rate 18 16 16 Blood Pressure 120/72 129/70 Pulse Oximetry 98 97 97 06/06/18 20:00 06/06/18 21:42 06/07/18 00:00 Temperature 97.6 F 97.2 F L Pulse Rate 105 H 105 H Respiratory Rate 18 18 Blood Pressure 133/73 135/80 Pulse Oximetry 99 98 97 06/07/18 04:00 Temperature 97.7 F Pulse Rate 108 H Respiratory Rate 18 Blood Pressure 130/70 Pulse Oximetry 100 Intake & Output 06/06/18 06/07/18 06/07/18 18:59 06:59 18:59 Intake Total 100 / 100 530 / 530 Output Total 400 / 400 Balance 100 / 100 130 / 130 Intake: IV 100 / 100 50 / 50 Zosyn 3.375 GM Premix 50 ML @ 100 / 100 50 / 50 100 mls/hr IV.SIG Q8H [facility] Rx#: [id number] Oral 0 / 0 480 / 480 Output: Urine 400 / 400 Other: # Incontinent Voids 2 Date of Last Bowel Movement 06/06/18 06/04/18 # Bowel Movements 2 Narrative: GENERAL: No acute distress. SKIN: Focused skin assessment warm/dry. HEAD: Atraumatic. Normocephalic. ENT: No nasal bleeding or discharge. Mucous membranes pink and moist. NECK: Trachea midline. No JVD. CARDIOVASCULAR: Regular rhythm with tachycardia no murmur appreciated. RESPIRATORY: Decreased breath sounds on the left, no wheezing, has some rhonchi bilaterally. GASTROINTESTINAL: Abdomen soft, non-tender, PEG in place. NEUROLOGICAL: Alert and Awake, only follow certain commands and able to answer yes or no. Moves left upper extremity best. - Urinary Catheter Management Indwelling Urethral Catheter Cath placed during this visit: yes Reason for continuing: Chronic Urinary Retention Insertion date: 05/29/18 Insertion time: 14:40 Straight Cath placed during this visit: no Reason for continuing: Chronic Urinary Retention Results - Labs CBC & Chem 7: 06/06/18 03:59 06/06/18 03:59 - Procedures None Assessment and Plan - Plan IMPRESSION ATELECTASIS LEFT LUNG PLEURAL EFFUSION S/P CVA PLAN BRONCHOSCOPY THORACENTESIS IF NEEDED PULM TOILET
--- NOTE | 2018-06-07 10:43 | MB ---
cc: Rashad Solorzano MD DATE: 06/07/2018 PROCEDURE: Fiberoptic bronchoscopy, flexible. REASON FOR BRONCHOSCOPY: Atelectasis left lung, related to underlying mucus plugging. PROCEDURE: Fiberoptic bronchoscopy performed via endotracheal tube. Vocal cords not visualized. Trachea moderately hyperemic. Alexandrea sharp. Right main stem bronchus patent. Right upper, middle, and lower lobes with mucus plugs, which were all removed. Left main bronchus near totally occluded by thick mucus plugs, which were all removed. The left upper and lower lobes cleared of all secretions plugging. No endobronchial obstruction or mass lesions seen throughout the tracheobronchial tree. Washings obtained for Gram stain and C&S. Procedure well tolerated. The patient was transferred to recovery room in stable condition. IMPRESSION: 1. Occluded left main bronchus due to mucus plugging. 2. No endobronchial obstruction, no mass lesion. 3. Samples obtained as above. 4. Procedure well tolerated. 5. The patient was transferred to recovery in stable condition. Rashad Solorzano MD WWW/suzette , 08:48 AM , 08:54 AM
[2018-06-07] MEDS: Linezolid 600 MG Tablet PO SCH ×2 (10:59→22:08)
[2018-06-07] MEDS: guaiFENesin 600 MG ER Tablet PO SCH ×2 (11:00→22:08)
[2018-06-07] MEDS: Ascorbic Acid 500 MG Tablet G-TUBE SCH ×2 (11:00→22:08)
[2018-06-07] MEDS: Baclofen 10 MG Tablet G-TUBE SCH ×2 (11:00→22:08)
[2018-06-07] MEDS: Senna/Docusate Sodium 8.6/50 MG Tablet PO SCH ×2 (11:00→22:08)
[2018-06-07] MEDS: Multivitamin/Minerals Therapeutic Tablet PO SCH (11:00)
[2018-06-07] MEDS: Mupirocin 2% Nasal Oint Topical Syringe EACH NARE SCH ×2 (11:01→22:09)
[2018-06-07] MEDS: dilTIAZem 30 MG Tablet G-TUBE SCH ×3 (11:01→18:00)
[2018-06-07] MEDS: Pantoprazole Inj 40 MG Vial IV.PUSH SCH (11:02)
--- NOTE | 2018-06-07 16:20 | P.PNIM ---
Subjective Interval history: The patient was alert but nonverbal. He did not seem in any distress. He had his bronchoscopy this morning. Physical Exam Vital signs: Vital Signs 06/06/18 20:00 06/06/18 21:42 06/07/18 00:00 Temperature 97.6 F 97.2 F L Pulse Rate 105 H 105 H Respiratory Rate 18 18 Blood Pressure 133/73 135/80 Pulse Oximetry 99 98 97 06/07/18 04:00 06/07/18 08:00 06/07/18 08:53 Temperature 97.7 F 98.9 F 98.8 F Pulse Rate 108 H 114 H 100 H Respiratory Rate 18 18 21 Blood Pressure 130/70 139/79 116/68 Pulse Oximetry 100 96 100 06/07/18 09:00 06/07/18 09:15 06/07/18 09:30 Temperature Pulse Rate 100 H 102 H 105 H Respiratory Rate 24 18 14 Blood Pressure 122/73 125/80 127/82 Pulse Oximetry 99 95 98 06/07/18 09:45 06/07/18 10:00 06/07/18 11:50 Temperature Pulse Rate 100 H 102 H Respiratory Rate 13 17 Blood Pressure 120/74 137/83 Pulse Oximetry 97 99 98 06/07/18 12:00 Temperature 97.8 F Pulse Rate 103 H Respiratory Rate 18 Blood Pressure 127/75 Pulse Oximetry 92 L Intake & Output 06/06/18 06/07/18 06/07/18 18:59 06:59 18:59 Intake Total 100 / 100 530 / 530 50 / 50 Output Total 400 / 400 150 / 150 Balance 100 / 100 130 / 130 -100 / -100 Intake: IV 100 / 100 50 / 50 50 / 50 Zosyn 3.375 GM Premix 50 ML @ 100 / 100 50 / 50 50 / 50 100 mls/hr IV.SIG Q8H [facility] Rx#: [id number] Oral 0 / 0 480 / 480 Output: Urine 400 / 400 Urine Amount (Catheter) 150 / 150 Indwelling Urethral Catheter 150 / 150 Other: # Incontinent Voids 2 Date of Last Bowel Movement 06/06/18 06/04/18 # Bowel Movements 2 Narrative: GENERAL: No acute distress. SKIN: Focused skin assessment warm/dry. HEAD: Atraumatic. Normocephalic. ENT: No nasal bleeding or discharge. Mucous membranes pink and moist. NECK: Trachea midline. No JVD. CARDIOVASCULAR: Regular rhythm with tachycardia no murmur appreciated. RESPIRATORY: Decreased breath sounds on the left, no wheezing, has some rhonchi bilaterally. GASTROINTESTINAL: Abdomen soft, non-tender, PEG in place. NEUROLOGICAL: Alert and Awake, only follows certain commands and able to answer yes or no. Moves left upper extremity best. - Urinary Catheter Management Indwelling Urethral Catheter Cath placed during this visit: yes Reason for continuing: Chronic Urinary Retention Insertion date: 05/29/18 Insertion time: 14:40 Straight Cath placed during this visit: no Reason for continuing: Chronic Urinary Retention Results - Labs CBC & Chem 7: 06/06/18 03:59 06/06/18 03:59 Microbiology 06/07/18 08:34 Bronchial - Bronchial Gram Stain - Final - Procedures None Assessment and Plan - Plan Acute respiratory insufficiency/MRSA pneumonia/UTI CT pulmonary angiogram revealed no signs of central pulmonary embolism. Right lower lobe infiltrate. Sputum culture with MRSA. Initial UC with steff/ repeated UC negative; stopped Diflucan. Has a positive blood culture bottle. -to continue Zyvox by mouth, Zosyn started. not yet cleared for discharge. -CXR and CT with left lung collapse. Pulmonology consult appreciated. Bronchoscopy 06/07: Occluded left main bronchus due to mucus plugging; No endobronchial obstruction, no mass lesion. -continue pulmonary toilet. -Nasal cannula to maintain saturations greater than equal to 92%. -Incentive spirometry while awake along with neb treatments. History of debilitating CVA Chronic. -Continue aspirin and lipitor. -Baclofen 10 mg p.o. twice daily -Physical therapy evaluate and treat Essential hypertension/tachycardia/Hyperlipidemia Stable. -continue Cardizem -continue atorvastatin 40 mg p.o. daily. Hypoalbuminemia/Elevated transaminases/Constipation/Possible proctitis/Distal colitis/Esophageal stricture Stable. -continue with laxatives -was recently evaluated by GI for esophageal stricture- f/u with GI as outpatient. -continue tube feeding with vital 1.5 goal 55 cc an hour -pantoprazole for GI prophylaxis -Docusate sodium/senna 1 tablet twice daily for bowel regimen -antibiotics per ID. On Zyvox and Zosyn. Leukocytosis/Normocytic normochromic anemia/Thrombocytosis Stable. -Monitor CBC. Follow trends. Sacral deep tissue injury/Contractions -evaluated by plastic surgery; no indication for surgery at this time; continue with wound care. Urinary retention -continue Chapin cath and f/u as outpatient. Prophylaxis -GI -pantoprazole -DVT SCD/heparin subcutaneous Discharge Planning: Awaiting pulmonology clearance
[2018-06-08] MEDS: Piperacil/Tazo 3.375 GM Premix 50 ML IV.SIG SCH ×3 (02:03→18:30)
[2018-06-08] MEDS: Heparin - SQ 10,000 UNITS/ML Vial SQ SCH ×3 (05:26→22:32)
[2018-06-08] MEDS: Linezolid 600 MG Tablet PO SCH ×2 (10:48→22:31)
[2018-06-08] MEDS: Multivitamin/Minerals Therapeutic Tablet PO SCH (10:48)
[2018-06-08] MEDS: Ascorbic Acid 500 MG Tablet G-TUBE SCH ×2 (10:48→22:31)
[2018-06-08] MEDS: guaiFENesin 600 MG ER Tablet PO SCH ×2 (10:48→22:31)
[2018-06-08] MEDS: Senna/Docusate Sodium 8.6/50 MG Tablet PO SCH ×2 (10:48→22:57)
[2018-06-08] MEDS: Mupirocin 2% Nasal Oint Topical Syringe EACH NARE SCH ×2 (10:49→22:29)
[2018-06-08] MEDS: dilTIAZem 30 MG Tablet G-TUBE SCH ×3 (10:49→18:30)
[2018-06-08] MEDS: Baclofen 10 MG Tablet G-TUBE SCH ×2 (10:49→22:31)
[2018-06-08] MEDS: Pantoprazole Inj 40 MG Vial IV.PUSH SCH (10:52)
--- NOTE | 2018-06-08 11:58 | P.PNIM ---
Subjective Interval history: Follow-up for pneumonia/MRSA/UTI, hypertension. Patient seen and examined, laying in bed, contracted, no verbal response. Patient opens eyes for stimulus. Looks comfortable in bed. Nurse denies any acute concerns overnight. Nurse reported no verbal response to her either. Physical Exam Vital signs: Vital Signs 06/07/18 12:00 06/07/18 16:00 06/07/18 17:29 Temperature 97.8 F 97.5 F L Pulse Rate 103 H 107 H Respiratory Rate 18 18 Blood Pressure 127/75 130/82 Pulse Oximetry 92 L 94 L 94 L 06/07/18 20:00 06/08/18 00:00 06/08/18 04:00 Temperature 97.2 F L 97.5 F L 97.2 F L Pulse Rate 102 H 107 H 109 H Respiratory Rate 18 18 18 Blood Pressure 139/78 128/69 121/70 Pulse Oximetry 99 99 99 06/08/18 08:00 Temperature 97.3 F L Pulse Rate 107 H Respiratory Rate 20 Blood Pressure 146/81 H Pulse Oximetry 95 Intake & Output 06/07/18 06/08/18 06/08/18 18:59 06:59 18:59 Intake Total 100 / 100 50 / 50 Output Total 750 / 750 Balance -650 / -650 50 / 50 Weight 54.6 kg Intake: IV 100 / 100 50 / 50 Zosyn 3.375 GM Premix 50 ML @ 100 / 100 50 / 50 100 mls/hr IV.SIG Q8H [facility] Rx#: [id number] Oral 0 / 0 0 / 0 Output: Urine 600 / 600 Urine Amount (Catheter) 150 / 150 Indwelling Urethral Catheter 150 / 150 Other: # Incontinent Voids 3 Date of Last Bowel Movement 06/07/18 # Bowel Movements 2 3 Narrative: GENERAL: Thin, chronically ill looking male in no acute distress SKIN: Warm and dry. HEAD: Atraumatic. Normocephalic. EYES: Pupils equal and round. No scleral icterus. No injection or drainage. ENT: No nasal bleeding or discharge. Mucous membranes pink and moist. NECK: Trachea midline. No JVD. CARDIOVASCULAR: Regular rate and rhythm. RESPIRATORY: No accessory muscle use. Decreased breath sounds. GASTROINTESTINAL: Abdomen soft, non-tender, nondistended. Hepatic and splenic margins not palpable. PEG tube in place MUSCULOSKELETAL: Extremities without clubbing, cyanosis, or edema. No obvious deformities. NEUROLOGICAL: Awake and alert, opens eyes to stimulus, no verbal response, moves left upper extremity. Right hand contracted, bilateral lower extremity contracted - Urinary Catheter Management Indwelling Urethral Catheter Cath placed during this visit: yes Reason for continuing: Chronic Urinary Retention Insertion date: 05/29/18 Insertion time: 14:40 Straight Cath placed during this visit: no Reason for continuing: Chronic Urinary Retention Results - Labs CBC & Chem 7: 06/06/18 03:59 06/06/18 03:59 Microbiology 06/07/18 08:34 Bronchial - Bronchial Gram Stain - Final - Procedures None Assessment and Plan - Assessment (1) Hypoxia Code(s): R09.02 - Hypoxemia Status: Acute (2) Dysphagia Code(s): R13.10 - Dysphagia, unspecified Status: Acute (3) Aspiration pneumonia Code(s): J69.0 - Pneumonitis due to inhalation of food and vomit Status: Acute (4) Debility Code(s): R53.81 - Other malaise Status: Acute (5) Acute and chronic respiratory failure with hypoxia Code(s): J96.21 - Acute and chronic respiratory failure with hypoxia Status: Acute - Plan This is a 57-year-old male with a history of stroke, at the baseline mostly bedridden, presents to [facility] for an evaluation of low saturations and decreased mental status. Acute respiratory insufficiency/MRSA pneumonia/UTI CT pulmonary angiogram revealed no signs of central pulmonary embolism. Right lower lobe infiltrate. - Sputum culture with MRSA. Initial UC with steff/ repeated UC negative; stopped Diflucan. Has a positive blood culture bottle. - continue Zyvox by mouth, Zosyn started. not yet cleared for discharge. -CXR and CT with left lung collapse. Pulmonology consult appreciated. Bronchoscopy 06/07: Occluded left main bronchus due to mucus plugging; No endobronchial obstruction, no mass lesion. -[employer] following: Continue duo nebs and Mucomyst, continue Zosyn and Zyvox -Nasal cannula to maintain saturations greater than equal to 92%. -Incentive spirometry while awake along with neb treatments. History of debilitating CVA Chronic. -Continue aspirin and lipitor. -Baclofen 10 mg p.o. twice daily -Physical therapy evaluate and treat Essential hypertension/tachycardia/Hyperlipidemia Stable. -continue Cardizem -continue atorvastatin 40 mg p.o. daily. Hypoalbuminemia Elevated transaminases Constipation/Possible proctitis/Distal colitis/Esophageal stricture Stable -continue with laxatives -was recently evaluated by GI for esophageal stricture- f/u with GI as outpatient. -continue tube feeding with Vital 1.5 goal 55 cc an hour -pantoprazole for GI prophylaxis -Docusate sodium/senna 1 tablet twice daily for bowel regimen -antibiotics per ID. On Zyvox and Zosyn. Leukocytosis Normocytic normochromic anemia Thrombocytosis Stable -Monitor CBC. Follow trends. Sacral deep tissue injury/Contractions -evaluated by plastic surgery; no indication for surgery at this time - continue with wound care -Soft air mattress Urinary retention -continue Chapin cath and f/u as outpatient. Prophylaxis GI :pantoprazole DVT :SCD/heparin subcutaneous Code Status: Full code Discussed Condition With: Patient and nurse Discharge Planning: home health care worker to assist placement to SNF/[facility]
--- NOTE | 2018-06-08 12:36 | P.PNPL ---
Subjective Interval history: Patient is lying in be din NAD. Afebrile. s/p bronch yesterday. Physical Exam Vital signs: Vital Signs 06/07/18 16:00 06/07/18 17:29 06/07/18 20:00 Temperature 97.5 F L 97.2 F L Pulse Rate 107 H 102 H Respiratory Rate 18 18 Blood Pressure 130/82 139/78 Pulse Oximetry 94 L 94 L 99 06/08/18 00:00 06/08/18 04:00 06/08/18 08:00 Temperature 97.5 F L 97.2 F L 97.3 F L Pulse Rate 107 H 109 H 107 H Respiratory Rate 18 18 20 Blood Pressure 128/69 121/70 146/81 H Pulse Oximetry 99 99 95 Intake & Output 06/07/18 06/08/18 06/08/18 18:59 06:59 18:59 Intake Total 100 / 100 50 / 50 50 / 50 Output Total 750 / 750 Balance -650 / -650 50 / 50 50 / 50 Weight 54.6 kg Intake: IV 100 / 100 50 / 50 50 / 50 Zosyn 3.375 GM Premix 50 ML @ 100 / 100 50 / 50 50 / 50 100 mls/hr IV.SIG Q8H [facility] Rx#: [id number] Oral 0 / 0 0 / 0 Output: Urine 600 / 600 Urine Amount (Catheter) 150 / 150 Indwelling Urethral Catheter 150 / 150 Other: # Incontinent Voids 3 Date of Last Bowel Movement 06/07/18 # Bowel Movements 2 3 - Constitutional no acute distress - Routine HEENT Exam Head: Present: normocephalic, atraumatic Eye: Present: EOMI, PERRL, normal accommodation ENT: Present: mucous membranes moist - Routine Neck Exam Present: supple, full ROM, trachea midline - Routine Respiratory Exam Present: CTA bilaterally - Routine Cardiovascular Exam Present: RRR, S1, S2 - Routine Abdominal Exam Present: soft, normoactive bowel sounds - Routine Skin Exam Present: intact - Routine Neurological Exam Present: alert, oriented X3, CN II-XII intact - Urinary Catheter Management Indwelling Urethral Catheter Cath placed during this visit: yes Reason for continuing: Chronic Urinary Retention Insertion date: 05/29/18 Insertion time: 14:40 Straight Cath placed during this visit: no Reason for continuing: Chronic Urinary Retention Assessment and Plan - Plan 1) Resp Insuff 2) Atelectasis/mucous plugs s/p bronch 3) MRSA pneumonia 4)UTI 5)Leukocytosis 6)Anemia Plan Continue with oxygen keep sats >92% Bronchodilators- place on DuoNeb and Mucomyst s/p bronch by Dr. Solorzano 06/07. Continue abx ( Zosyn, Zyvox) monitor for signs of infections (fever, WBC) Follow up on BAL results Nutrition support- on tube feeds via PEG tube GI/DVT prophylaxis Continue treatment plan
[2018-06-08] MEDS: RESP: Acetylcysteine 10% 4 ML Neb NEB SCH ×3 (15:37→23:59)
[2018-06-09] MEDS: Piperacil/Tazo 3.375 GM Premix 50 ML IV.SIG SCH ×3 (01:00→18:16)
[2018-06-09] MEDS: RESP: Acetylcysteine 10% 4 ML Neb NEB SCH ×6 (03:40→23:33)
[2018-06-09] MEDS: Heparin - SQ 10,000 UNITS/ML Vial SQ SCH ×3 (06:44→22:31)
[2018-06-09] MEDS: dilTIAZem 30 MG Tablet G-TUBE SCH ×3 (08:15→18:16)
[2018-06-09] MEDS: Baclofen 10 MG Tablet G-TUBE SCH ×2 (08:15→22:29)
[2018-06-09] MEDS: Senna/Docusate Sodium 8.6/50 MG Tablet PO SCH ×2 (08:15→22:29)
[2018-06-09] MEDS: Linezolid 600 MG Tablet PO SCH ×2 (08:15→22:29)
[2018-06-09] MEDS: Ascorbic Acid 500 MG Tablet G-TUBE SCH ×2 (08:15→22:28)
[2018-06-09] MEDS: Multivitamin/Minerals Therapeutic Tablet PO SCH (08:15)
[2018-06-09] MEDS: Mupirocin 2% Nasal Oint Topical Syringe EACH NARE SCH ×2 (08:16→22:30)
--- NOTE | 2018-06-09 09:05 | P.PNPL ---
Subjective Interval history: Patient is lying in bed in NAD. On room air oxygen. Afebrile. Physical Exam Vital signs: Vital Signs 06/08/18 12:00 06/08/18 15:35 06/08/18 16:00 Temperature 97.5 F L 98.1 F Pulse Rate 98 H 101 H 107 H Respiratory Rate 20 12 20 Blood Pressure 116/69 139/70 Pulse Oximetry 100 98 06/08/18 20:00 06/08/18 20:14 06/08/18 23:54 Temperature 97.6 F Pulse Rate 99 H 88 107 H Respiratory Rate 20 16 Blood Pressure 135/75 Pulse Oximetry 98 99 06/09/18 00:00 06/09/18 03:40 06/09/18 04:00 Temperature 97.6 F 98.2 F Pulse Rate 107 H 101 H 112 H Respiratory Rate 18 17 18 Blood Pressure 131/76 146/86 H Pulse Oximetry 96 94 L 06/09/18 07:00 06/09/18 07:58 06/09/18 08:00 Temperature 98.1 F Pulse Rate 96 H 70 Respiratory Rate 12 18 Blood Pressure 150/86 H Pulse Oximetry 98 100 Intake & Output 06/08/18 06/09/18 06/09/18 18:59 06:59 18:59 Intake Total 50 / 50 443 / 443 Output Total 825 / 825 Balance -775 / -775 443 / 443 Weight 52.3 kg Intake: IV 50 / 50 100 / 100 Zosyn 3.375 GM Premix 50 ML @ 50 / 50 100 / 100 100 mls/hr IV.SIG Q8H [facility] Rx#: [id number] Oral 0 / 0 Tube Feeding 343 / 343 Output: Urine 825 / 825 Other: # Voids 600 # Bowel Movements 1 # Incontinent Bowel Movements 1 - Constitutional no acute distress - Routine HEENT Exam Head: Present: normocephalic, atraumatic Eye: Present: EOMI, PERRL, normal accommodation, conjunctivae pink ENT: Present: mucous membranes moist - Routine Neck Exam Present: supple, trachea midline - Routine Respiratory Exam Present: CTA bilaterally - Routine Cardiovascular Exam Present: RRR, S1, S2 - Routine Abdominal Exam Present: soft, normoactive bowel sounds - Routine Extremities Exam Present: pulses intact - Routine Skin Exam Present: intact - Routine Neurological Exam Present: alert - Urinary Catheter Management Indwelling Urethral Catheter Cath placed during this visit: yes Reason for continuing: Chronic Urinary Retention Insertion date: 05/29/18 Insertion time: 14:40 Straight Cath placed during this visit: no Reason for continuing: Chronic Urinary Retention Assessment and Plan - Plan 1) Resp Insuff 2) Atelectasis/mucous plugs s/p bronch 3) MRSA pneumonia 4)UTI 5)Leukocytosis 6)Anemia Plan Continue with oxygen keep sats >92% Bronchodilators- on DuoNeb and Mucomyst s/p bronch by Dr. Solorzano 06/07. Continue abx ( Zosyn, Zyvox) monitor for signs of infections (fever, WBC) ID is following Sputum 05/24: MRSA, Follow up on BAL results- NGTD Nutrition support- on tube feeds ( Vital 1.5) via PEG tube GI/DVT prophylaxis- On Protonix and Heparin SQ respectively. Continue treatment plan
[2018-06-09] MEDS: guaiFENesin 600 MG ER Tablet PO SCH ×2 (10:00→22:31)
[2018-06-09] MEDS: Pantoprazole Inj 40 MG Vial IV.PUSH SCH (10:00)
--- NOTE | 2018-06-09 13:57 | P.PNIM ---
Subjective Interval history: Follow-up for pneumonia/MRSA/UTI, hypertension. Patient seen and examined laying in bed, awake responding to questions with yes or no. Patient more responsive today. Patient denies any pain or shortness of breath by nodding his head sideways. Patient looks comfortable in bed. Nurse reported patient with little conversation today with some words. Reported no acute issues overnight. Physical Exam Vital signs: Vital Signs 06/08/18 15:35 06/08/18 16:00 06/08/18 20:00 Temperature 98.1 F 97.6 F Pulse Rate 101 H 107 H 99 H Respiratory Rate 12 20 20 Blood Pressure 139/70 135/75 Pulse Oximetry 98 98 06/08/18 20:14 06/08/18 23:54 06/09/18 00:00 Temperature 97.6 F Pulse Rate 88 107 H 107 H Respiratory Rate 16 18 Blood Pressure 131/76 Pulse Oximetry 99 96 06/09/18 03:40 06/09/18 04:00 06/09/18 07:00 Temperature 98.2 F Pulse Rate 101 H 112 H 96 H Respiratory Rate 17 18 12 Blood Pressure 146/86 H Pulse Oximetry 94 L 06/09/18 07:58 06/09/18 08:00 06/09/18 11:49 Temperature 98.1 F Pulse Rate 107 H 98 H Respiratory Rate 18 14 Blood Pressure 150/86 H Pulse Oximetry 98 100 06/09/18 12:00 Temperature 98.4 F Pulse Rate 107 H Respiratory Rate 18 Blood Pressure 134/86 Pulse Oximetry 98 Intake & Output 06/08/18 06/09/18 06/09/18 18:59 06:59 18:59 Intake Total 50 / 50 443 / 443 Output Total 825 / 825 Balance -775 / -775 443 / 443 Weight 52.3 kg Intake: IV 50 / 50 100 / 100 Zosyn 3.375 GM Premix 50 ML @ 50 / 50 100 / 100 100 mls/hr IV.SIG Q8H [facility] Rx#: [id number] Oral 0 / 0 Tube Feeding 343 / 343 Output: Urine 825 / 825 Other: # Voids 600 # Bowel Movements 1 # Incontinent Bowel Movements 1 Narrative: GENERAL: Thin, chronically ill looking male in no acute distress SKIN: Warm and dry. HEAD: Atraumatic. Normocephalic. EYES: Pupils equal and round. No scleral icterus. No injection or drainage. ENT: No nasal bleeding or discharge. Mucous membranes pink and moist. NECK: Trachea midline. No JVD. CARDIOVASCULAR: Regular rate and rhythm. RESPIRATORY: No accessory muscle use. Decreased breath sounds. GASTROINTESTINAL: Abdomen soft, non-tender, nondistended. Hepatic and splenic margins not palpable. PEG tube in place MUSCULOSKELETAL: Extremities without clubbing, cyanosis, or edema. No obvious deformities. NEUROLOGICAL: Awake and alert, opens eyes to stimulus, some verbal response today with yes or no, moves left upper extremity. Right hand contracted, bilateral lower extremity contracted. Facial grimace with pain or when touching lower extremities - Urinary Catheter Management Indwelling Urethral Catheter Cath placed during this visit: yes Reason for continuing: Chronic Urinary Retention Insertion date: 05/29/18 Insertion time: 14:40 Straight Cath placed during this visit: no Reason for continuing: Chronic Urinary Retention Results - Labs CBC & Chem 7: 06/06/18 03:59 06/06/18 03:59 Microbiology 06/07/18 08:34 Bronchial - Bronchial Gram Stain - Final 06/07/18 08:34 Bronchial - Bronchial Bronchial Culture - Final No growth in 48 hours - Procedures None Assessment and Plan - Assessment (1) Hypoxia Code(s): R09.02 - Hypoxemia Status: Acute (2) Dysphagia Code(s): R13.10 - Dysphagia, unspecified Status: Acute (3) Aspiration pneumonia Code(s): J69.0 - Pneumonitis due to inhalation of food and vomit Status: Acute (4) Debility Code(s): R53.81 - Other malaise Status: Acute (5) Acute and chronic respiratory failure with hypoxia Code(s): J96.21 - Acute and chronic respiratory failure with hypoxia Status: Acute - Plan This is a 57-year-old male with a history of stroke, at the baseline mostly bedridden, presents to [place] for an evaluation of low saturations and decreased mental status. Acute respiratory insufficiency MRSA/ Pneumonia Bacteremia UTI CT pulmonary angiogram revealed no signs of central pulmonary embolism. Right lower lobe infiltrate. - Sputum culture with MRSA. Initial UC with steff/ repeated UC negative; stopped Diflucan. Has a positive blood culture bottle. - continue Zyvox by mouth, Zosyn started. not yet cleared for discharge. -CXR and CT with left lung collapse. Pulmonology consult appreciated. Bronchoscopy 06/07: Occluded left main bronchus due to mucus plugging; No endobronchial obstruction, no mass lesion. Bronchial culture sent -Data Warehouse Developer following: Continue duo nebs and Mucomyst, continue Zosyn and Zyvox -ID following, appreciate recommendation:continue Zosyn and Zyvox PO, awaiting Bronch results -Nasal cannula to maintain saturations greater than equal to 92%. -Incentive spirometry while awake along with neb treatments. -Bronchial cultures: No growth in 48 hours History of debilitating CVA Dysphagia/Aphasia Chronic. -Continue aspirin and lipitor. -Baclofen 10 mg p.o. twice daily -Physical therapy/OT evaluate and treat Essential hypertension Tachycardia Hyperlipidemia Stable, blood pressure and heart rate controlled, -continue Cardizem -continue atorvastatin 40 mg p.o. daily -Monitor heart rate and blood pressure, adjust medication as necessary Hypoalbuminemia Elevated transaminases Constipation/Possible proctitis/Distal colitis/Esophageal stricture Stable -continue with laxatives -was recently evaluated by GI for esophageal stricture- f/u with GI as outpatient. -continue tube feeding with Vital 1.5 goal 55 cc an hour -pantoprazole for GI prophylaxis -Docusate sodium/senna 1 tablet twice daily for bowel regimen -antibiotics per ID. On Zyvox and Zosyn. Leukocytosis Normocytic normochromic anemia Thrombocytosis Stable -Monitor CBC. Follow trends. Sacral deep tissue injury/Contractions -evaluated by plastic surgery; no indication for surgery at this time - continue with wound care -Soft air mattress Urinary retention -continue Chapin cath and f/u as outpatient. Prophylaxis GI :pantoprazole DVT :SCD/heparin subcutaneous Code Status: full code Discussed Condition With: patient and nurse Discharge Planning: social staff worker to assist placement to [facility]
[2018-06-10] MEDS: Piperacil/Tazo 3.375 GM Premix 50 ML IV.SIG SCH ×3 (01:11→18:46)
[2018-06-10] MEDS: RESP: Acetylcysteine 10% 4 ML Neb NEB SCH ×6 (03:27→23:31)
[2018-06-10] MEDS: Heparin - SQ 10,000 UNITS/ML Vial SQ SCH ×3 (06:47→21:57)
[2018-06-10] MEDS: Linezolid 600 MG Tablet PO SCH ×2 (09:48→21:57)
[2018-06-10] MEDS: Pantoprazole Inj 40 MG Vial IV.PUSH SCH (09:48)
[2018-06-10] MEDS: Multivitamin/Minerals Therapeutic Tablet PO SCH (09:48)
[2018-06-10] MEDS: guaiFENesin 600 MG ER Tablet PO SCH ×2 (09:48→21:57)
[2018-06-10] MEDS: Baclofen 10 MG Tablet G-TUBE SCH ×2 (09:48→21:57)
[2018-06-10] MEDS: Senna/Docusate Sodium 8.6/50 MG Tablet PO SCH ×2 (09:48→21:57)
[2018-06-10] MEDS: Ascorbic Acid 500 MG Tablet G-TUBE SCH ×2 (09:48→21:57)
[2018-06-10] MEDS: dilTIAZem 30 MG Tablet G-TUBE SCH ×3 (09:49→18:46)
[2018-06-10] MEDS: Mupirocin 2% Nasal Oint Topical Syringe EACH NARE SCH ×2 (09:49→21:58)
--- NOTE | 2018-06-10 11:24 | P.PNIM ---
Subjective Interval history: Follow-up for pneumonia/MRSA/UTI, hypertension. Patient seen and examined laying in bed, awake and alert, responding to questions by nodding his head. Patient nods heads no for pain or shortness of breath. Patient grimace to touch and moving extremities. Patient looks comfortable in bed, bilateral lower extremity contracted right hand contracted. Nurse reported no acute issues overnight. Nurse reported patient responding to her for some questions. Physical Exam Vital signs: Vital Signs 06/09/18 11:49 06/09/18 12:00 06/09/18 16:00 Temperature 98.4 F 97.8 F Pulse Rate 98 H 108 H 105 H Respiratory Rate 14 18 18 Blood Pressure 134/86 137/84 Pulse Oximetry 98 100 06/09/18 16:11 06/09/18 19:55 06/09/18 20:00 Temperature 97.1 F L Pulse Rate 100 H 109 H 112 H Respiratory Rate 14 18 Blood Pressure 149/83 H Pulse Oximetry 97 06/09/18 20:15 06/09/18 23:36 06/09/18 23:54 Temperature Pulse Rate 82 79 112 H Respiratory Rate 14 20 Blood Pressure Pulse Oximetry 06/10/18 00:56 06/10/18 03:31 06/10/18 04:00 Temperature 97.5 F L 97.7 F Pulse Rate 113 H 84 116 H Respiratory Rate 16 20 18 Blood Pressure 146/82 H 135/77 Pulse Oximetry 98 98 06/10/18 04:01 06/10/18 07:52 06/10/18 08:00 Temperature 97.8 F Pulse Rate 114 H 118 H 114 H Respiratory Rate 16 18 Blood Pressure 143/82 H Pulse Oximetry 98 97 Intake & Output 06/09/18 06/10/18 06/10/18 18:59 06:59 18:59 Intake Total 50 / 50 393 / 393 Output Total 1250 / 1250 1575 / 1575 Balance -1200 / -1200 -1182 / -1182 Weight 52.8 kg Intake: IV 50 / 50 100 / 100 Zosyn 3.375 GM Premix 50 ML @ 50 / 50 100 / 100 100 mls/hr IV.SIG Q8H [facility] Rx#: [id number] Tube Feeding 293 / 293 Output: Urine 1250 / 1250 Urine Amount (Catheter) 1575 / 1575 Indwelling Urethral Catheter 1575 / 1575 Narrative: GENERAL: Thin, chronically ill looking male in no acute distress SKIN: Warm and dry. HEAD: Atraumatic. Normocephalic. EYES: Pupils equal and round. No scleral icterus. No injection or drainage. ENT: No nasal bleeding or discharge. Mucous membranes pink and moist. NECK: Trachea midline. No JVD. CARDIOVASCULAR: Regular rate and rhythm. RESPIRATORY: No accessory muscle use. Decreased breath sounds. GASTROINTESTINAL: Abdomen soft, non-tender, nondistended. Hepatic and splenic margins not palpable. PEG tube in place MUSCULOSKELETAL: Extremities without clubbing, cyanosis, or edema. No obvious deformities. NEUROLOGICAL: Awake and alert, opens eyes to stimulus, nods head for response, some verbal response today with yes or no, moves left upper extremity. Right hand contracted, bilateral lower extremity contracted. Facial grimace with pain or when touching lower extremities - Urinary Catheter Management Indwelling Urethral Catheter Cath placed during this visit: yes Reason for continuing: Chronic Urinary Retention Insertion date: 05/29/18 Insertion time: 14:40 Straight Cath placed during this visit: no Reason for continuing: Chronic Urinary Retention Results - Labs CBC & Chem 7: 06/06/18 03:59 06/06/18 03:59 Microbiology 06/07/18 08:34 Bronchial - Bronchial Gram Stain - Final 06/07/18 08:34 Bronchial - Bronchial Bronchial Culture - Final No growth in 48 hours - Procedures None Assessment and Plan - Assessment (1) Hypoxia Code(s): R09.02 - Hypoxemia Status: Acute (2) Dysphagia Code(s): R13.10 - Dysphagia, unspecified Status: Acute (3) Aspiration pneumonia Code(s): J69.0 - Pneumonitis due to inhalation of food and vomit Status: Acute (4) Debility Code(s): R53.81 - Other malaise Status: Acute (5) Acute and chronic respiratory failure with hypoxia Code(s): J96.21 - Acute and chronic respiratory failure with hypoxia Status: Acute - Plan This is a 57-year-old male with a history of stroke, at the baseline mostly bedridden, presents to [place] for an evaluation of low saturations and decreased mental status. Acute respiratory insufficiency MRSA/ Pneumonia Bacteremia UTI CT pulmonary angiogram revealed no signs of central pulmonary embolism. Right lower lobe infiltrate. - Sputum culture with MRSA. Initial UC with steff/ repeated UC negative; stopped Diflucan. Has a positive blood culture bottle. - continue Zyvox by mouth, Zosyn started. not yet cleared for discharge. -CXR and CT with left lung collapse. Pulmonology consult appreciated. Bronchoscopy 06/07: Occluded left main bronchus due to mucus plugging; No endobronchial obstruction, no mass lesion. Bronchial culture sent -Manuscripts Archivist following: Continue duo nebs and Mucomyst, continue Zosyn and Zyvox -ID following, appreciate recommendation:continue Zosyn and Zyvox PO, awaiting Bronch results -Nasal cannula to maintain saturations greater than equal to 92%. -Incentive spirometry while awake along with neb treatments. -Bronchial cultures: No growth in 48 hours -no fever or chills, monitor signs and symptoms History of debilitating CVA Dysphagia/Aphasia Chronic -Continue aspirin and lipitor -Baclofen 10 mg p.o. twice daily -Physical therapy/OT evaluate and treat Essential hypertension Tachycardia Hyperlipidemia Stable, blood pressure and heart rate controlled, -continue Cardizem -continue atorvastatin 40 mg p.o. daily -Monitor heart rate and blood pressure, adjust medication as necessary Hypoalbuminemia Elevated transaminases Constipation/Possible proctitis/Distal colitis/Esophageal stricture Stable -continue with laxatives -was recently evaluated by GI for esophageal stricture- f/u with GI as outpatient. -continue tube feeding with Vital 1.5 goal 55 cc an hour -pantoprazole for GI prophylaxis -Docusate sodium/senna 1 tablet twice daily for bowel regimen -antibiotics per ID continue on Zyvox PO and Zosyn IV Leukocytosis Normocytic normochromic anemia Thrombocytosis Stable -repeat CBC. Follow trends Sacral deep tissue injury/Contractions -evaluated by plastic surgery; no indication for surgery at this time - continue with wound care -Soft air mattress Urinary retention -continue Chapin cath and f/u as outpatient. Prophylaxis GI :pantoprazole DVT :SCD/heparin subcutaneous Code Status: full code Discussed Condition With: patient and nurse Discharge Planning: cathead worker to assist placement to [facility]
[2018-06-10 12:55] LABS: Baso % (Auto) 0.5 % (0.0-2.0); Eos # (Auto) 0.3 th/mm3 (0.0-0.4); Eos % (Auto) 3.2 % (0.0-4.0); Hematocrit 28.3 % (39.0-51.0); Hemoglobin 8.7 gm/dL (13.0-17.0); Lymph % (Auto) 10.7 % (9.0-44.0); Mean Corpuscular HGB Conc 30.9 % (32.0-36.0); Mean Corpuscular Hemoglobin 27.1 pg (27.0-34.0); Mean Corpuscular Volume 87.9 fL (80.0-100.0); Mean Platelet Volume 6.5 fL (7.0-11.0); Mono % (Auto) 11.1 % (0.0-8.0); Neut # (Auto) 6.7 th/mm3 (1.8-7.7); Neut % (Auto) 74.5 % (16.0-70.0); Platelet Count 630 th/mm3 (150-450); Red Blood Count 3.22 mil/mm3 (4.50-5.90); Red Cell Distribution Width 18.7 % (11.6-17.2); White Blood Count 8.9 th/mm3 (4.0-11.0)
[2018-06-10 13:20] LABS: Anion Gap 6 meq/L (5-15); Blood Urea Nitrogen 9 mg/dL (7-18); Calcium 8.2 mg/dL (8.5-10.1); Carbon Dioxide 28.2 meq/L (21.0-32.0); Chloride 103 meq/L (98-107); Glomerular Filtration Rate Greater Than 89 mL/min (>89); Glucose,Random 112 mg/dL (74-106); Potassium 4.1 meq/L (3.5-5.1); Sodium 137 meq/L (136-145)
[2018-06-11] MEDS: Piperacil/Tazo 3.375 GM Premix 50 ML IV.SIG SCH ×3 (02:36→18:12)
[2018-06-11] MEDS: RESP: Acetylcysteine 10% 4 ML Neb NEB SCH ×6 (03:15→23:25)
[2018-06-11] MEDS: Heparin - SQ 10,000 UNITS/ML Vial SQ SCH ×3 (05:14→21:00)
[2018-06-11] MEDS: Multivitamin/Minerals Therapeutic Tablet PO SCH (10:05)
[2018-06-11] MEDS: dilTIAZem 30 MG Tablet G-TUBE SCH ×3 (10:06→18:12)
[2018-06-11] MEDS: Mupirocin 2% Nasal Oint Topical Syringe EACH NARE SCH ×2 (10:06→20:57)
[2018-06-11] MEDS: Ascorbic Acid 500 MG Tablet G-TUBE SCH ×2 (10:06→20:56)
[2018-06-11] MEDS: Baclofen 10 MG Tablet G-TUBE SCH ×2 (10:06→20:57)
[2018-06-11] MEDS: Senna/Docusate Sodium 8.6/50 MG Tablet PO SCH ×2 (10:06→20:57)
[2018-06-11] MEDS: guaiFENesin 600 MG ER Tablet PO SCH ×2 (10:07→21:00)
[2018-06-11] MEDS: Pantoprazole Inj 40 MG Vial IV.PUSH SCH (10:07)
[2018-06-11] MEDS: Linezolid 600 MG Tablet PO SCH ×2 (10:07→20:56)
--- NOTE | 2018-06-11 15:24 | P.PN ---
Subjective Interval history: NAD ON O2 Physical Exam Vital signs: Vital Signs 06/10/18 16:00 06/10/18 17:03 06/10/18 19:33 Temperature 97.4 F L Pulse Rate 110 H 112 H 108 H Respiratory Rate 17 20 20 Blood Pressure 136/76 Pulse Oximetry 96 96 06/10/18 20:00 06/10/18 23:31 06/10/18 23:45 Temperature 98.3 F Pulse Rate 109 H 100 H 112 H Respiratory Rate 18 18 Blood Pressure 128/73 Pulse Oximetry 94 L 06/11/18 00:00 06/11/18 03:15 06/11/18 03:50 Temperature 99.7 F H Pulse Rate 116 H 102 H 124 H Respiratory Rate 19 18 Blood Pressure 139/74 Pulse Oximetry 94 L 06/11/18 04:00 06/11/18 07:38 06/11/18 08:00 Temperature 97.6 F 98.6 F Pulse Rate 117 H 115 H 114 H Respiratory Rate 18 18 17 Blood Pressure 127/80 125/99 H Pulse Oximetry 95 95 97 06/11/18 11:08 06/11/18 11:10 06/11/18 12:00 Temperature 97.8 F Pulse Rate 112 H 118 H Respiratory Rate 18 17 Blood Pressure 131/89 Pulse Oximetry 96 100 06/11/18 15:11 06/11/18 15:12 Temperature Pulse Rate 118 H Respiratory Rate 18 Blood Pressure Pulse Oximetry 100 Intake & Output 06/10/18 06/11/18 06/11/18 18:59 06:59 18:59 Intake Total 50 / 50 100 / 100 50 / 50 Output Total 1300 / 1300 500 / 500 Balance -1250 / -1250 -400 / -400 50 / 50 Weight 53.5 kg Intake: IV 50 / 50 100 / 100 50 / 50 Zosyn 3.375 GM Premix 50 ML @ 50 / 50 100 / 100 50 / 50 100 mls/hr IV.SIG Q8H [facility] Rx#: [id number] Output: Urine 1300 / 1300 500 / 500 Other: Date of Last Bowel Movement 06/10/18 # Bowel Movements 1 Narrative: GENERAL: Thin, chronically ill looking male in no acute distress SKIN: Warm and dry. HEAD: Atraumatic. Normocephalic. EYES: Pupils equal and round. No scleral icterus. No injection or drainage. ENT: No nasal bleeding or discharge. Mucous membranes pink and moist. NECK: Trachea midline. No JVD. CARDIOVASCULAR: Regular rate and rhythm. RESPIRATORY: No accessory muscle use. Decreased breath sounds. GASTROINTESTINAL: Abdomen soft, non-tender, nondistended. Hepatic and splenic margins not palpable. PEG tube in place MUSCULOSKELETAL: Extremities without clubbing, cyanosis, or edema. No obvious deformities. NEUROLOGICAL: Awake and alert, opens eyes to stimulus, nods head for response, some verbal response today with yes or no, moves left upper extremity. Right hand contracted, bilateral lower extremity contracted. Facial grimace with pain or when touching lower extremities - Urinary Catheter Management Indwelling Urethral Catheter Cath placed during this visit: yes Reason for continuing: Chronic Urinary Retention Insertion date: 05/29/18 Insertion time: 14:40 Straight Cath placed during this visit: no Reason for continuing: Chronic Urinary Retention Results - Labs CBC & Chem 7: 06/10/18 12:37 06/10/18 12:37 - Procedures None Assessment and Plan - Plan IMPRESSION ATELECTASIS LEFT LUNG PLEURAL EFFUSION S/P CVA DOING WELL POST BRONCHOSCOPY PLAN f/u cxray THORACENTESIS IF NEEDED PULM TOILET
--- NOTE | 2018-06-11 15:46 | XR ---
EXAM DATE: 06/11/2018 3:43 PM EST AGE/SEX: 57 years / Male INDICATIONS: Shortness of breath. CLINICAL DATA: This is the patient's subsequent encounter. Patient reports that signs and symptoms h ave been present for 2 months and indicates a pain score of Nonresponsive. MEDICAL/SURGICAL HISTORY: . Cerebrovascular disease. Non-responsive. COMPARISON: [facility] [place], CHEST 1V SINGLE AP, 06/05/2018. . FINDINGS: Rotated and underinflated AP view of the chest demonstrates a normal-sized cardiac silhouette. EKG li ibrahima overlie the patient. There is airspace opacity at the left base. Atelectasis is appreciated at th e right base. No pleural effusion or pneumothorax is identified. The bones and soft tissues demonstra te no acute abnormality. CONCLUSION: Significant interval improvement in aeration of the left lung with only mild residual consolidation a t the left lung base. No other acute finding is identified. Electronically signed by: Shawn Thompson MD 06/11/2018 3:45 PM EST
--- NOTE | 2018-06-11 16:29 | P.PNIM ---
Subjective Interval history: No acute interval problems reported overnight. Physical Exam Vital signs: Last Vital Signs Temp 97.8 F 06/11/18 12:00 Pulse 118 H 06/11/18 15:11 Resp 18 06/11/18 15:11 BP 131/89 06/11/18 12:00 Pulse Ox 100 06/11/18 15:12 Intake & Output 06/09/18 06/10/18 06/11/18 06/12/18 06:59 06:59 06:59 06:59 Intake Total 493 / 493 443 / 443 150 / 150 50 / 50 Output Total 825 / 825 2825 / 2825 1800 / 1800 Balance -332 / -332 -2382 / -2382 -1650 / -1650 50 / 50 Weight 52.3 kg 52.8 kg 53.5 kg Narrative: GENERAL: Thin, chronically ill looking male in no acute distress HEENT:not pale,anicteric,[place] NECK: Trachea midline. No JVD. CARDIOVASCULAR: RRR, no murmurs. RESPIRATORY: No accessory muscle use. Decreased breath sounds bilaterally. no wheezes. GASTROINTESTINAL: Abdomen not distended, soft, non-tender,no organomegaly. PEG tube in place MUSCULOSKELETAL: Extremities without clubbing, cyanosis, or edema. contracted RUE and bilateral LE. Moves LUE. NEUROLOGICAL: Awake and alert, non verbal but responds to questions asked by nodding. SKIN: Warm and dry. Urinary Catheter Management Indwelling Urethral Catheter: Cath placed during this visit: yes Urethral indwelling: Yes Reason for continuing: Chronic Urinary Retention Insertion date: 05/29/18 Insertion time: 14:40 Straight: Cath placed during this visit: no Results Labs CBC & Chem 7: 06/10/18 12:37 06/10/18 12:37 Imaging Imaging: Impressions Chest X-Ray 06/11/18 15:22 CONCLUSION: Significant interval improvement in aeration of the left lung with only mild residual consolidation at the left lung base. No other acute finding is identified. Procedures Procedures: None Assessment and Plan (1) Hypoxia: Code(s): R09.02 - Hypoxemia Status: Acute (2) Dysphagia: Code(s): R13.10 - Dysphagia, unspecified Status: Acute (3) Aspiration pneumonia: Code(s): J69.0 - Pneumonitis due to inhalation of food and vomit Status: Acute (4) Debility: Code(s): R53.81 - Other malaise Status: Acute (5) Acute and chronic respiratory failure with hypoxia: Code(s): J96.21 - Acute and chronic respiratory failure with hypoxia Status: Acute Plan 57-year-old male with a history of stroke, at the baseline mostly bedridden, presents to [place] for an evaluation of low saturations and decreased mental status. Acute problems: Acute respiratory insufficiency MRSA/ Pneumonia Bacteremia CT pulmonary angiogram revealed no signs of central pulmonary embolism. Right lower lobe infiltrate. -CXR and CT with left lung collapse. Pulmonology consult appreciated. Bronchoscopy 06/07: Occluded left main bronchus due to mucus plugging; No endobronchial obstruction, no mass lesion. - Sputum culture with MRSA. Has a positive blood culture bottle. -Leukocytosis--resolved. - continue Zyvox by mouth, IV Zosyn -Bronchial culture negative to date. - Continue duo nebs and Mucomyst, continue Zosyn and Zyvox -Nasal cannula to maintain saturations greater than equal to 92%. -Incentive spirometry while awake along with neb treatments. repeat CXR 06/11 shows significant improvement in lt lung aeration. appreciate ID and pulmonary recs. Chronic stable problems: Essential hypertension Tachycardia Hyperlipidemia Stable, blood pressure and heart rate controlled, -continue Cardizem -continue atorvastatin 40 mg p.o. daily -Monitor heart rate and blood pressure, adjust medication as necessary Hypoalbuminemia Elevated transaminases Constipation/Possible proctitis/Distal colitis/Esophageal stricture Stable -continue with laxatives -continue tube feeding with Vital 1.5 goal 55 cc an hour -pantoprazole for GI prophylaxis -Docusate sodium/senna 1 tablet twice daily for bowel regimen -was recently evaluated by GI for esophageal stricture- f/u with GI as outpatient. History of debilitating CVA Dysphagia/Aphasia Chronic -Continue aspirin and lipitor -Baclofen 10 mg p.o. twice daily -Physical therapy/OT Sacral deep tissue injury/Contractions -evaluated by plastic surgery; no indication for surgery at this time - continue with wound care -Soft air mattress Urinary retention -continue Chapin cath and f/u as outpatient. Chronic Normocytic normochromic anemia--stable Thrombocytosis--monitor trends Prophylaxis GI :pantoprazole DVT :SCD/heparin subcutaneous Code Status: full code Discharge Planning: awaits final ID recs for abx, and final pulm recs after which we can plan for dc. floor service worker [place] to assist placement to SNF/[facility] Progress Note: Quality VTE Deep Vein Thrombosis/Pulmonary Embolism Present on Admission: No _ (1) Dysphagia Qualifiers: Dysphagia type: (2) Aspiration pneumonia Qualifiers: Aspiration pneumonia type: Laterality: Lung location:
[2018-06-12] MEDS: Piperacil/Tazo 3.375 GM Premix 50 ML IV.SIG SCH ×3 (02:01→17:37)
[2018-06-12] MEDS: RESP: Acetylcysteine 10% 4 ML Neb NEB SCH ×4 (03:22→15:22)
[2018-06-12] MEDS: Heparin - SQ 10,000 UNITS/ML Vial SQ SCH ×3 (05:27→21:51)
[2018-06-12] MEDS: Multivitamin/Minerals Therapeutic Tablet PO SCH (10:21)
[2018-06-12] MEDS: dilTIAZem 30 MG Tablet G-TUBE SCH ×3 (10:21→17:37)
[2018-06-12] MEDS: guaiFENesin 600 MG ER Tablet PO SCH ×2 (10:21→21:51)
[2018-06-12] MEDS: Baclofen 10 MG Tablet G-TUBE SCH ×2 (10:21→20:00)
[2018-06-12] MEDS: Pantoprazole Inj 40 MG Vial IV.PUSH SCH (10:22)
[2018-06-12] MEDS: Senna/Docusate Sodium 8.6/50 MG Tablet PO SCH ×2 (10:22→20:00)
[2018-06-12] MEDS: Linezolid 600 MG Tablet PO SCH ×2 (10:22→20:01)
[2018-06-12] MEDS: Ascorbic Acid 500 MG Tablet G-TUBE SCH ×2 (10:22→20:00)
[2018-06-12] MEDS: Mupirocin 2% Nasal Oint Topical Syringe EACH NARE SCH ×2 (10:23→20:01)
--- NOTE | 2018-06-12 12:17 | P.DIET ---
Nutritional Evaluation Type of nutrition evaluation: follow-up Nutrition consult regarding: Tube Feeding Objective - Diagnosis ARDS - Objective % IBW: 92 (IBW = 136#) Body Weight Used for Calculations: Actual (56.7 kg) Energy Needs - Lower Range (kCal/kg): 30 Energy Needs - Upper Range (kCal/kg): 35 Lower Limit kCal/kg (kCals): 1,701 Upper Limit kCal/kg (kCals): 1,985 Lower Limit Protein Factor (Grams per Kg): 1.2 Upper Limit Protein Factor (Grams per Kg): 1.6 Lower Protein Needs (Protein): 68 Upper Protein Needs (Protein): 91 Dietitian Reviewed in Medical Record: Curent medications, Intake & Output, Labs , Medical history, Tube feeding Diet Order: TF Speech Therapy Recommendations: Yes (NPO (05/29)) Assessment Assessment: Pt remains at high nutrition risk 2' to his dependence on TF. Currently receiving Vital 1.5 @ 45 mls/hr. To better meet needs, recommend increase rate to 55 mls/hr to provide 1980 kcals, 89 gms protein and 1008 mls of free water. Labs, wts and clinical course reviewed. Wt loss to 52.6 kg with a BMI of 19.3 noted. Recommendations: Increase Vital 1.5 to 55 mls/hr goal Dietitian to Monitor: Lab values, Intake & Output, Tube feeding tolerance, Weight change, Swallow recommendations, Medical course
--- NOTE | 2018-06-12 15:56 | P.PN ---
Subjective Interval history: ALERT NAD Physical Exam Vital signs: Vital Signs 06/11/18 16:00 06/11/18 19:14 06/11/18 19:50 Temperature 97.9 F Pulse Rate 105 H 112 H 110 H Respiratory Rate 20 20 Blood Pressure 138/90 Pulse Oximetry 100 06/11/18 20:00 06/11/18 23:26 06/12/18 00:00 Temperature 98.1 F 97.4 F L Pulse Rate 114 H 114 H 109 H Respiratory Rate 18 18 18 Blood Pressure 133/86 127/93 H Pulse Oximetry 98 94 L 06/12/18 03:24 06/12/18 04:00 06/12/18 04:10 Temperature 97.9 F Pulse Rate 118 H 114 H 111 H Respiratory Rate 24 18 Blood Pressure 145/88 H Pulse Oximetry 95 06/12/18 07:51 06/12/18 08:00 06/12/18 12:00 Temperature 97.8 F 97.9 F Pulse Rate 108 H 109 H 108 H Respiratory Rate 18 20 20 Blood Pressure 145/95 H 140/88 Pulse Oximetry 95 96 96 06/12/18 12:27 06/12/18 15:25 06/12/18 15:26 Temperature Pulse Rate 111 H 111 H Respiratory Rate 20 20 Blood Pressure Pulse Oximetry 96 Intake & Output 06/11/18 06/12/18 06/12/18 18:59 06:59 18:59 Intake Total 50 / 50 105 / 105 50 / 50 Output Total 300 / 300 500 / 500 Balance -250 / -250 -395 / -395 50 / 50 Weight 52.6 kg Intake: IV 50 / 50 105 / 105 50 / 50 Zosyn 3.375 GM Premix 50 ML @ 50 / 50 105 / 105 50 / 50 100 mls/hr IV.SIG Q8H DAMASO Rx#: [id number] Oral 0 / 0 Output: Urine 300 / 300 500 / 500 Other: # Bowel Movements 0 Narrative: GENERAL: Thin, chronically ill looking male in no acute distress HEENT:not pale,anicteric,WILLIAM NECK: Trachea midline. No JVD. CARDIOVASCULAR: RRR, no murmurs. RESPIRATORY: No accessory muscle use. Decreased breath sounds bilaterally. no wheezes. GASTROINTESTINAL: Abdomen not distended, soft, non-tender,no organomegaly. PEG tube in place MUSCULOSKELETAL: Extremities without clubbing, cyanosis, or edema. contracted RUE and bilateral LE. Moves LUE. NEUROLOGICAL: Awake and alert, non verbal but responds to questions asked by nodding. SKIN: Warm and dry. - Urinary Catheter Management Indwelling Urethral Catheter Cath placed during this visit: yes Urethral indwelling: Yes Reason for continuing: Chronic Urinary Retention Insertion date: 05/29/18 Insertion time: 14:40 Straight Cath placed during this visit: no Reason for continuing: Chronic Urinary Retention Results - Labs CBC & Chem 7: 06/10/18 12:37 06/10/18 12:37 - Procedures None Assessment and Plan - Plan IMPRESSION ATELECTASIS LEFT LUNG, MUCH BETTER POST BRONCHOSCOPY PLEURAL EFFUSION S/P CVA PLAN PULM TOILET INCREASE ACTIVITY
--- NOTE | 2018-06-12 16:51 | P.PNIM ---
Subjective Interval history: no acute problems overnight. Physical Exam Vital signs: Last Vital Signs Temp 97.9 F 06/12/18 12:00 Pulse 111 H 06/12/18 15:26 Resp 20 06/12/18 15:26 BP 140/88 06/12/18 12:00 Pulse Ox 96 06/12/18 15:25 Intake & Output 06/10/18 06/11/18 06/12/18 06/13/18 06:59 06:59 06:59 06:59 Intake Total 443 / 443 150 / 150 155 / 155 50 / 50 Output Total 2825 / 2825 1800 / 1800 800 / 800 Balance -2382 / -2382 -1650 / -1650 -645 / -645 50 / 50 Weight 52.8 kg 53.5 kg 52.6 kg Narrative: GENERAL: Thin, chronically ill looking male in no acute distress HEENT:not pale,anicteric,WILLIAM NECK: Trachea midline. No JVD. CARDIOVASCULAR: RRR, no murmurs. RESPIRATORY: No accessory muscle use. Decreased breath sounds bilaterally. no wheezes. GASTROINTESTINAL: Abdomen not distended, soft, non-tender,no organomegaly. PEG tube in place MUSCULOSKELETAL: Extremities without clubbing, cyanosis, or edema. contracted RUE and bilateral LE. Moves LUE. NEUROLOGICAL: Awake and alert, non verbal but responds to questions asked by nodding. SKIN: Warm and dry. Urinary Catheter Management Indwelling Urethral Catheter: Cath placed during this visit: yes Urethral indwelling: Yes Reason for continuing: Chronic Urinary Retention Insertion date: 05/29/18 Insertion time: 14:40 Straight: Cath placed during this visit: no Results Labs CBC & Chem 7: 06/10/18 12:37 06/10/18 12:37 Procedures Procedures: None Assessment and Plan (1) Hypoxia: Code(s): R09.02 - Hypoxemia Status: Acute (2) Dysphagia: Code(s): R13.10 - Dysphagia, unspecified Status: Acute (3) Aspiration pneumonia: Code(s): J69.0 - Pneumonitis due to inhalation of food and vomit Status: Acute (4) Debility: Code(s): R53.81 - Other malaise Status: Acute (5) Acute and chronic respiratory failure with hypoxia: Code(s): J96.21 - Acute and chronic respiratory failure with hypoxia Status: Acute Plan 57-year-old male with a history of stroke, at the baseline mostly bedridden, presents to [facility] for an evaluation of low saturations and decreased mental status. Acute problems: Acute respiratory insufficiency MRSA/ Pneumonia Bacteremia CT pulmonary angiogram revealed no signs of central pulmonary embolism. Right lower lobe infiltrate. -CXR and CT with left lung collapse. Pulmonology consult appreciated. Bronchoscopy 06/07: Occluded left main bronchus due to mucus plugging; No endobronchial obstruction, no mass lesion. - Sputum culture with MRSA. Has a positive blood culture bottle. -Leukocytosis--resolved. - continue Zyvox by mouth, IV Zosyn-- -Bronchial culture negative to date. - Continue duo nebs and Mucomyst, continue Zosyn and Zyvox -Nasal cannula to maintain saturations greater than equal to 92%. -Incentive spirometry while awake along with neb treatments. repeat CXR 06/11 shows significant improvement in lt lung aeration. appreciate ID and pulmonary recs. 06/12-patient remains stable. No changes to above plans. Chronic stable problems: Essential hypertension Tachycardia Hyperlipidemia Stable, blood pressure and heart rate controlled, -continue Cardizem -continue atorvastatin 40 mg p.o. daily -Monitor heart rate and blood pressure, adjust medication as necessary Hypoalbuminemia Elevated transaminases Constipation/Possible proctitis/Distal colitis/Esophageal stricture Stable -continue with laxatives -continue tube feeding with Vital 1.5 goal 55 cc an hour -pantoprazole for GI prophylaxis -Docusate sodium/senna 1 tablet twice daily for bowel regimen -was recently evaluated by GI for esophageal stricture- f/u with GI as outpatient. History of debilitating CVA Dysphagia/Aphasia Chronic -Continue aspirin and lipitor -Baclofen 10 mg p.o. twice daily -Physical therapy/OT Sacral deep tissue injury/Contractions -evaluated by plastic surgery; no indication for surgery at this time - continue with wound care -Soft air mattress Urinary retention -continue Chapin cath and f/u as outpatient. Chronic Normocytic normochromic anemia--stable Thrombocytosis--monitor trends Prophylaxis GI :pantoprazole DVT :SCD/heparin subcutaneous Code Status: full code Discharge Planning: will plan for discharge on 06/13 if cleared by pulmonary. cone worker to assist placement to SNF/[facility] Progress Note: Quality VTE Deep Vein Thrombosis/Pulmonary Embolism Present on Admission: No _ (1) Dysphagia Qualifiers: Dysphagia type: (2) Aspiration pneumonia Qualifiers: Aspiration pneumonia type: Laterality: Lung location:
[2018-06-13] MEDS: Piperacil/Tazo 3.375 GM Premix 50 ML IV.SIG SCH ×2 (02:25→09:27)
[2018-06-13] MEDS: Heparin - SQ 10,000 UNITS/ML Vial SQ SCH ×2 (05:02→12:59)
--- NOTE | 2018-06-13 07:47 | P.DS ---
DS: Providers Date of admission: 05/23/18 20:20 Primary care physician: Pietro Reyna MD Consults: 05/24/18 00:57 Consult to Wound Care Physician Routine Consulting Provider: Carolyne Jj Reason for Consultation: two pressure wounds to sacral area (open and covered with dressing) and one to right hip (red area, not open) Notified:: Service Spoke with:: Cartlon Date Notified:: 05/24/18 Time Notified:: 01:02 Comments:: Dr Jj says patient does not need to be seen until sunday - Ordering Provider: JENNIFER 05/25/18 16:48 Consult to Hospitalist Routine Consulting Provider: Evita Dhillon Reason for Consultation: [place] of care in a.m. 05/26: Admission with aspiration pneumonia. Notified:: Service Spoke with:: RAMAN Date Notified:: 05/25/18 Time Notified:: 17:04 Ordering Provider: KALANI 05/27/18 08:07 Consult to Palliative Care Routine Consulting Provider: Zo Urbina Reason for Consultation: please assist with goals of care. Notified:: Service Spoke with:: cooper Date Notified:: 05/27/18 Time Notified:: 08:10 Ordering Provider: ARMANDO 05/28/18 07:54 Consult to Infectious Diseases Routine Consulting Provider: Kamla Padilla Reason for Consultation: pneumonia Notified:: Service Spoke with:: ANAM Date Notified:: 05/28/18 Time Notified:: 08:09 Ordering Provider: ARMANDO 05/28/18 16:22 HUB Only Consult Order Routine Consulting Provider: [facility] 05/28/18 16:23 HUB Only Consult Order Routine Consulting Provider: [facility],Agency 05/28/18 16:24 HUB Only Consult Order Routine Consulting Provider: [facility],Agency 05/28/18 16:26 HUB Only Consult Order Routine Consulting Provider: [facility],Agency 06/03/18 14:07 Consult to Pulmonology Routine Consulting Provider: Rashad Solorzano Preferred Boiler Coverer Helper:: Rashad Solorzano Patient known to:: Rashad Solorzano Reason for Consultation: Lung Collapse Notified:: Service Spoke with:: Sita Date Notified:: 06/03/18 Time Notified:: 14:18 Comments:: Change per griselda in [place]--[place] [id number] Ordering Provider: ALYCIA Brief History from admission: 57-year-old male with a history of stroke, at the baseline mostly bedridden, presents to [place] for an evaluation of low saturations and decreased mental status of the past few days. His chest x-ray demonstrates clear lungs however he is actually in respiratory alkalosis with low PCO2 and low FiO2 even on nonrebreather which is required to maintain his sats greater than 90%. 2 L normal saline given in the emergency department. He is on the verge of being intubated and remains a full code according to his . DS: Diagnosis Discharge Diagnosis (1) Hypoxia: Status: Acute (2) Dysphagia: Status: Acute (3) Aspiration pneumonia: Status: Acute (4) Debility: Status: Acute (5) Acute and chronic respiratory failure with hypoxia: Status: Acute DS: Summary ISSUES ADDRESSED DURING THIS HOSPITALIZATION: 1.Acute respiratory failure with hypoxemia, pneumonia with sepsis, lung collapse. Patient presented with desaturation, required non rebreather mask. Initial CXR was clear, however CT chest revealed RLL infiltrate, no signs of PE. He was started on IV Vanc and Cefepime. Sputum culture grew MRSA, initial blood culture grew coag negative staph in 1 bottle out of 4. He was responding appropriately to Vanc/Cefepime recommended by ID at the time. DUONEBS and Mucomyst were given as needed.On 06/04, repeat CXR showed opacification of lt lung, at the time he was switched to Zyvox and Zosyn. Pulmonary was consulted. Patient underwent Bronchoscopy and samples were sent for culture. Aggressive pulmonary toilet and incentive spirometry was pursued. His lung gradually improved in aeration. Repeat CXR on 06/11 showed significant improvement in lt lung aeration. Bronchial cultures came back negative. Patient's clinical condition continued to improve.He will be transitioned to Doxycycline on discharge for 1 week. Aggressive pulmonary toilet and incentive spirometry should be continued. He is currently requiring Oxygen by nasal canula at 3 liters/min,which can be tapered down as tolerated. 2.Sacral deep tissue injury/Contractions He was evaluated by plastic surgery; no indication for surgery at this time. wound care was continued,had soft air mattress 3.Urinary retention-chronic -he has a Chapin cath and should be f/u as outpatient. 4.With regard to his tube feeds, he is currently on Vital 1.5 goal 55 cc an hour 5.Constipation--he should remain on a bowel regimen. Time Spent with Patient Total time spent providing and/or coordinating discharge services: Quality: VTE Deep Vein Thrombosis/Pulmonary Embolism Present on Admission: No Results Procedures completed during hospitalization: None Impressions ITS Impressions Chest CTA 05/23/18 18:20 CONCLUSION: 1. The study is negative for pulmonary embolism. 2. Right lower lobe consolidation. 3. Enlarged esophagus, similar in external contour compared to prior CT. Abdomen/Pelvis CT 06/03/18 00:00 CONCLUSION: 1. The patient's gastrostomy tube is in good position. 2. Near complete collapse of the left lung. The lower chest is only partially visualized. This is new when compared to previous dated 05/30/2018. 3. Incidental Chapin catheter within the bladder. Chest CT 06/04/18 18:18 CONCLUSION: 1. Near complete collapse of the left lung predominantly the left lower lobe with debris seen within the left mainstem bronchus. This bronchoscopy would be of benefit for further assessment. 2. Minimal left-sided pleural effusion. 3. Minimal pericardial effusion. Chest X-Ray 06/11/18 15:22 CONCLUSION: Significant interval improvement in aeration of the left lung with only mild residual consolidation at the left lung base. No other acute finding is identified. Discharge Plan Discharge Disposition Patient Disposition: 03 Discharge to SNF Discharge Condition Condition: Fair Discharge Order Discharge Orders: Discharge Order (Routine); Ordered 06/13/18 Ordered By: Marco A Holloway Pulmonology Clear for Discharge (Routine); Ordered 06/13/18 Ordered By: Marco A Holloway Discharge Details Anticipated Discharge Date: 06/13/18 Discharge Comment: if cleared by pulmonary Physicians Team Primary Care Provider: Pietro Reyna Attending Provider: Marco A Holloway Other Providers: Carolyne Jj ; Zo Urbina ; Kamla Padilla ; [facility]ency ; [facility],Agency ; [facility] ; [facility],Agency ; RashadRashad sharma W Rxs /Orders / Referrals /Forms Prescriptions: New povidone-iodine 10 % Ointment 1 applicatio Topical BID Qty: 30 RF: 0 diltiazem HCl 30 mg Tablet 30 mg G-Tube TID Qty: 90 RF: 0 doxycycline hyclate 100 mg tablet 100 mg Feeding Tube BID 7 Days Qty: 14 RF: 0 Continue aspirin 81 mg Tablet,Chewable 81 mg PO DAILY RF: 0 pantoprazole [Protonix] 40 mg Tablet,Delayed Release (Dr/Ec) 40 mg PO DAILY Qty: 30 RF: 0 atorvastatin [Lipitor] 20 mg Tablet 40 mg PO DAILY Qty: 30 RF: 0 multivitamin with minerals Liquid 15 ml Feeding Tube DAILY RF: 0 zinc sulfate 220 mg Tablet 220 mg Feeding Tube DAILY RF: 0 ascorbic acid (vitamin C) [Vitamin C] 500 mg Tablet 500 mg Feeding Tube BID RF: 0 baclofen 10 mg Tablet 10 mg Feeding Tube BID RF: 0 guaifenesin [Mucinex] 600 mg Tablet Extended Release 12hr 600 mg PO Q12H RF: 0 arginine-vitamin C-vitamin E [Arginaid] 4.5 gram-156 mg/9.2 gram Powder In Packet 1 packet Feeding Tube BID RF: 0 Discontinued levofloxacin [Levaquin] 500 mg Tablet 500 mg Feeding Tube DAILY RF: 0 Ambulatory Orders / Order Sets / DME: XR chest 1V single AP (Routine) Timeframe: 1 Week Location: Determined by Patient Ordered By: Phyllis Berry Referrals: Pietro Reyna MD [Primary Care Provider] - See Instructions Discharge Instructions Patient Printed Instructions: Diltiazem (By mouth), Doxycycline (By mouth), Acute Respiratory Distress Syndrome (GEN) Status ED Status: Left Department
[2018-06-13] MEDS: Baclofen 10 MG Tablet G-TUBE SCH (08:35)
[2018-06-13] MEDS: dilTIAZem 30 MG Tablet G-TUBE SCH ×2 (08:35→12:49)
[2018-06-13] MEDS: Multivitamin/Minerals Therapeutic Tablet PO SCH (08:36)
[2018-06-13] MEDS: Senna/Docusate Sodium 8.6/50 MG Tablet PO SCH (08:36)
[2018-06-13] MEDS: Linezolid 600 MG Tablet PO SCH (08:36)
[2018-06-13] MEDS: Ascorbic Acid 500 MG Tablet G-TUBE SCH (08:36)
[2018-06-13] MEDS: Mupirocin 2% Nasal Oint Topical Syringe EACH NARE SCH (08:37)
[2018-06-13 09:16] VITALS: O2SAT 99
[2018-06-13] MEDS: Pantoprazole Inj 40 MG Vial IV.PUSH SCH (09:27)
[2018-06-13] MEDS: guaiFENesin 600 MG ER Tablet PO SCH (09:27)
[2018-06-13] MEDS: Morphine Sulfate Inj 2 MG/ML Vial IV.PUSH PRN (12:49)
--- NOTE | 2018-06-13 17:09 | P.PNADD ---
Addendum to Inpatient Note Additional information: Resolved fever, leukocytososis and significant improvement on CXR PLAN: dc all abx
[2018-06-13 18:19] VITALS: BP 132/86; PULSE 106; RESP 18; TEMP 98.9
== END 2018-06-13 17:50 ==
LOC: NEPE 17:51 → NEDA 20:20 → HIMC 23:30 → N04 05-28 17:05
PROVIDERS: ADMIT Hospitalist; ATTEND Hospitalist
DX: J80 Acute respiratory distress syndrome; E87.3 Alkalosis; J69.0 Pneumonitis due to inhalation of food and vomit; E83.39 Other disorders of phosphorus metabolism; K22.2 Esophageal obstruction; R74.0 Nonspecific elevation of levels of transaminase and lactic acid dehydrogenase [LDH]; G82.20 Paraplegia, unspecified; Z79.899 Other long term (current) drug therapy; Z86.14 Personal history of Methicillin resistant Staphylococcus aureus infection; J15.212 Pneumonia due to Methicillin resistant Staphylococcus aureus; E87.6 Hypokalemia; T17.890A Other foreign object in other parts of respiratory tract causing asphyxiation, initial encounter; E86.9 Volume depletion, unspecified; L89.151 Pressure ulcer of sacral region, stage 1; Z79.82 Long term (current) use of aspirin; Z51.5 Encounter for palliative care; A41.9 Sepsis, unspecified organism; B37.49 Other urogenital candidiasis; Z68.1 Body mass index [BMI] 19.9 or less, adult; E78.5 Hyperlipidemia, unspecified; Z87.891 Personal history of nicotine dependence; D64.9 Anemia, unspecified; I69.365 Other paralytic syndrome following cerebral infarction, bilateral; I10 Essential (primary) hypertension; E87.0 Hyperosmolality and hypernatremia; I69.320 Aphasia following cerebral infarction; Z93.1 Gastrostomy status; L89.211 Pressure ulcer of right hip, stage 1; R53.81 Other malaise; K59.00 Constipation, unspecified; Z74.01 Bed confinement status; E88.09 Other disorders of plasma-protein metabolism, not elsewhere classified; R00.0 Tachycardia, unspecified; I69.328 Other speech and language deficits following cerebral infarction; J98.11 Atelectasis